=== PATIENT | male | born 1955 | race Caucasian/White ===

== ENCOUNTER → 2016-09-19 | Day surgery (SDC) | payer OTHER ==
[2016-09-12 09:04] VITALS: BMI 24.0
[~2016-09-19] VITALS: Ht 185.4 cm; Wt 83.2 kg
[~2016-09-19] MED LIST: ALBUAER19 INH; ANT25 PO; ASCA500 PO; ASPI81TA28 PO; ATROPINE SULFATE 0.1 MG/ML 5ML SYR IV PRN; EpHEDrine SULFATE INJ 50 MG/ML AMP IV PRN; FLUC100T4 PO; FLV1 PO; FNTTP50 TD; HYDR25TA4 PO; LIDOCAINE HCL 2% 2 ML VIAL (20MG/ML) ONE; METO1TAB69 PO; MULT-1042 PO; ONDANSETRON INJ 2 MG/ML 2 ML VIAL IV PRN; OXGN; OXYC-57 PO; PANT40TA PO; PARO1TAB27 PO; PHENYLEPHRINE 100MCG/ML 5ML SYR ONE; PROPOFOL IV EMULSION 10 MG/ML 20 ML VIAL IV ONE; SYMIN160 INH; THM100 PO; TOPI25TA99 PO; VNTHFA/IN INH; ZOLP10TA PO
[2016-09-19 10:57] VITALS: Ht 185.4 cm; Wt 83.2 kg
[2016-09-19 11:05] VITALS: TEMP 36.6
--- NOTE | 2016-09-19 11:06 | Endo History and Physical ---
History & Physical Date of Service: Sep 19, 2016. Chief Complaint: Abnormal EGD Referring Physician: Dr. Hodge History of Present Illness History of recurrent dysphagia and chest pain. Prior EGD with severe masslike ulceration of the esophagus. For a repeat EGD today. Past Medical History Cancer, Hypertension, COPD, Depression Past Surgical History Hx Cardiac Surgery: Yes (HEART CATH, NO STENT) Hx Internal Defibrillator: No Hx Pacemaker: No Hx Abdominal Surgery: Yes (BOWEL BLOCKAGE, BOWEL SURGERY A CHILD, APPY, HERNIA HYDROCELE) Hx of Implantable Prosthesis: No Hx Post-Op Nausea and Vomiting: No Hx Cancer Surgery: Yes (MULTIPLE SKIN CANCER REMOVALS AND MOHS PROCEDURE) Hx Thoracic Surgery: No Hx Orthopedic: Yes (TUMOR REMOVAL FROM BACK AND RT KNEE) Hx Urinary Tract Surgery: No Family History None Social History Smoking Status: Current Some Day Smoker Hx Substance Use: Yes (SEE MED LIST) Hx Alcohol Use: Yes (OCCASIONAL) Allergies Coded Allergies: Onion (Verified Allergy, Unknown, RASH AND GI UPSET, 09/19/16) Shellfish (Verified Adverse Reaction, Severe, ANAPHYLAXIS, 09/19/16) Captopril (Verified Adverse Reaction, Intermediate, "felt bad", 09/19/16) Codeine (Verified Adverse Reaction, Unknown, nausea; nightmares, 09/19/16) Current Medications Reported Home Medications Medications Dose Route/Sig Max Daily Dose Days Date Category Dose Instructions Vitamin C (Ascorbic Acid) 500 Mg Tab 1,000 Mg PO QAM 09/12/16 Reported Oxygen Gas 3 Liters NA HS 09/12/16 Reported Protonix (Pantoprazole Sodium) 40 Mg Tab 40 Mg PO QAM 09/12/16 Reported Diflucan (Fluconazole) 100 Mg Tab 100 Mg PO QAM 09/12/16 Reported Toprol-Xl (Metoprolol Succinate) 100 Mg Tabcr 100 Mg PO QAM 09/17/15 Reported Hctz (Hydrochlorothiazide) 25 Mg Tab 25 Mg PO QAM 09/17/15 Reported Ambien (Zolpidem Tartrate) 10 Mg Tab 10 Mg PO HS PRN 09/17/15 Reported Percocet 5MG/325MG (Oxycodone/Acetaminophen) Tab 1 Tablets PO Q6H PRN 09/17/15 Reported PAIN Duragesic (Fentanyl) 50 Mcg Tdsy 50 Mcg TD Q48H 09/17/15 Reported Aspirin Ec (Aspirin) 81 Mg Tab 81 Mg PO ON HOLD 03/29/15 Reported Symbicort 160/4.5 Inhaler (Budesonide/Formoterol Fumarate) Aero 2 Puffs INH BID 10/11/14 Reported Ventolin Inhaler (Albuterol) Aers 2 Puffs INH QID PRN 04/01/14 Reported Vital Signs Weight (Kilograms): 83.18 Height (Feet): 6 Height (Inches): 1 Physical Exam General Appearance: no apparent distress Respiratory/Chest: Auscultation: breath sounds normal Cardiovascular: Heart Auscultation: RRR Abdomen: Inspection & Palpation: soft Assessment and Plan EGD for follow-up evaluation of a suspicious esophageal ulceration. Risks include bleeding, infection, perforation, pain and aspiration.
--- NOTE | 2016-09-19 11:39 | GI REPORT ---
Procedure Date: 09/19/2016 11:06 AM Procedure: Upper GI endoscopy Indications: Dysphagia, Heartburn, Suspected tumor of the GI tract Medicines: Monitored Anesthesia Care Complications: No immediate complications. Estimated blood loss: Minimal. Estimated Blood Loss: Estimated blood loss was minimal. Procedure: Pre-Anesthesia Assessment: - Prior to the procedure, a History and Physical was performed, and patient medications, allergies and sensitivities were reviewed. The patient's tolerance of previous anesthesia was reviewed. - The risks and benefits of the procedure and the sedation options and risks were discussed with the patient. All questions were answered and informed consent was obtained. - Patient identification and proposed procedure were verified prior to the procedure by the physician, the nurse and the chocolate maker. The procedure was verified in the procedure room. - Pre-procedure physical examination revealed no contraindications to sedation. - ASA Grade Assessment: III - A patient with severe systemic disease. - After reviewing the risks and benefits, the patient was deemed in satisfactory condition to undergo the procedure. - The anesthesia plan was to use monitored anesthesia care (MAC). - Immediately prior to administration of medications, the patient was re-assessed for adequacy to receive sedatives. - The heart rate, respiratory rate, oxygen saturations, blood pressure, adequacy of pulmonary ventilation, and response to care were monitored throughout the procedure. - The physical status of the patient was re-assessed after the procedure. After obtaining informed consent, the endoscope was passed under direct vision. Throughout the procedure, the patient's blood pressure, pulse, and oxygen saturations were monitored continuously. The scope was introduced through the mouth, and advanced to the second part of duodenum. The upper GI endoscopy was accomplished without difficulty. The patient tolerated the procedure well. Findings: The esophagus and gastroesophageal junction were examined with white light. There were esophageal mucosal changes suggestive of long-segment Joyce's esophagus. These changes involved the mucosa at the upper extent of the gastric folds (38 cm from the incisors) extending to the Z-line (34 cm from the incisors). Circumferential salmon-colored mucosa was present from 35 to 38 cm, multiple tongues of salmon-colored mucosa were present from 34 to 35 cm, nodularity was present and ulcerations were present. The maximum longitudinal extent of these esophageal mucosal changes was 4 cm in length. Biopsies were taken with a cold forceps for histology. Estimated blood loss was minimal. A medium-sized hiatus hernia was found. The proximal extent of the gastric folds (end of tubular esophagus) was 38 cm from the incisors. The hiatal narrowing was 40 cm from the incisors. The Z-line was 34 cm from the incisors. Diffuse moderate inflammation characterized by congestion (edema), erosions, erythema and granularity was found in the entire examined stomach. Biopsies were taken with a cold forceps for histology. Estimated blood loss was minimal. The examined duodenum was normal. 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 Biopsied. - Medium-sized hiatus hernia. - Gastritis. Biopsied. - Normal examined duodenum. Recommendation: - Discharge patient to home (ambulatory). - Advance diet as tolerated today. - Increase Protonix (pantoprazole) 40 mg PO BID for 8 weeks. - Await pathology results. If dysplasia noted we may need to consider EMR for further evalution. - Repeat the upper endoscopy in 3 months for surveillance based on pathology results. Ismael France D.O. Ismael France DO 09/19/2016 11:38:17 AM This report has been signed electronically. Note Initiated On: 09/19/2016 11:06 AM
--- NOTE | 2016-09-19 11:42 | Discharge Instructions ---
Endoscopy Patient Instructions Date / Procedure(s) Performed Sep 19, 2016. EGD Allergy Information Coded Allergies: Onion (Verified Allergy, Unknown, RASH AND GI UPSET, 09/19/16) Shellfish (Verified Adverse Reaction, Severe, ANAPHYLAXIS, 09/19/16) Captopril (Verified Adverse Reaction, Intermediate, "felt bad", 09/19/16) Codeine (Verified Adverse Reaction, Unknown, nausea; nightmares, 09/19/16) Discharge Date / Findings Sep 19, 2016. Barretts Esophagus with nodularity Hiatal hernia Medication Instructions Stopped Medication(s): ALL MEDS STOP ONLY TAKE LOPRESSOR Reported Home Medications Medications Dose Route/Sig Max Daily Dose Days Date Category Dose Instructions Vitamin C (Ascorbic Acid) 500 Mg Tab 1,000 Mg PO QAM 09/12/16 Reported Oxygen Gas 3 Liters NA HS 09/12/16 Reported Protonix (Pantoprazole Sodium) 40 Mg Tab 40 Mg PO QAM 09/12/16 Reported Diflucan (Fluconazole) 100 Mg Tab 100 Mg PO QAM 09/12/16 Reported Toprol-Xl (Metoprolol Succinate) 100 Mg Tabcr 100 Mg PO QAM 09/17/15 Reported Hctz (Hydrochlorothiazide) 25 Mg Tab 25 Mg PO QAM 09/17/15 Reported Ambien (Zolpidem Tartrate) 10 Mg Tab 10 Mg PO HS PRN 09/17/15 Reported Percocet 5MG/325MG (Oxycodone/Acetaminophen) Tab 1 Tablets PO Q6H PRN 09/17/15 Reported PAIN Duragesic (Fentanyl) 50 Mcg Tdsy 50 Mcg TD Q48H 09/17/15 Reported Aspirin Ec (Aspirin) 81 Mg Tab 81 Mg PO ON HOLD 03/29/15 Reported Symbicort 160/4.5 Inhaler (Budesonide/Formoterol Fumarate) Aero 2 Puffs INH BID 10/11/14 Reported Ventolin Inhaler (Albuterol) Aers 2 Puffs INH QID PRN 04/01/14 Reported Provider Instructions Activity Restrictions - No exercising or heavy lifting for 24 hours. - Do not drink alcohol the day of the procedure. - Do not drive a car or operate machinery until the day after the procedure. - Do not make any important decisions or sign important papers in 24 hours after the procedure. Following Day: - Return to full activity which may include returning to work/school. Diet Start your diet with liquids and light foods (jello, soup, juice, toast). Then eat your usual diet if not nauseated. Treatment For Common After Affects For mild abdominal pain, bloating, or excessive gas: - Rest - Eat lightly - Lie on right side Follow-Up Information Increase Protonix to 40 mg twice daily for 8 weeks Await pathology results Anesthesia Information What You Should Know You have had a procedure that required some medicine to reduce anxiety and discomfort. This treatment is called moderate sedation. After receiving the treatment, you may be sleepy, but you will be able to breathe on your own. The effects of the treatment may last for several hours. Follow these instructions along with Activity/Diet recommendations noted above: * Do NOT do anything where dizziness or clumsiness would be dangerous. * Rest quietly at home today, then you can be up and about tomorrow. * Have a responsible person stay with you the rest of today. * You may have had an I.V. today. If so, you may take the dressing off later today. Recommendations Call your doctor if: * Trouble breathing * Continuous vomiting for more than 24 hours * Temperature above 101 degrees * Severe abdominal pain or bloating * Pain not relieved by pain medicine ordered * There is increased drainage or redness from any incision * A large amount of rectal bleeding greater than 2-3 tablespoons. (If you had a polyp/s removed or have hemorrhoids, a small amount of blood - from the rectum is to be expected.) * You have any unanswered questions or concerns. IN THE EVENT OF A SERIOUS EMERGENCY, GO TO THE NEAREST EMERGENCY ROOM Your discharge instructions were prepared by provider Ismael France. Patient Instructions Signature Page Iron Cruz Patient (or Guardian) Signature/Date: I have read and understand the instructions given to me by my caregivers. Caregiver/RN/Doctor Signature/Date: The above-named patient and/or guardian has received patient instructions on this date. + Original Patient Signature Page (only) stays with chart. Please make copy for patient.
--- NOTE | 2016-09-19 12:04 | Anesthesiology Progress Note ---
Anesthesia Post Op Note Date & Time Sep 19, 2016 at 12:03 Vital Signs Pain Intensity: 0 Vital Signs Past 12 Hours Date Time Temp Pulse Resp B/P Pulse Ox O2 Delivery O2 Flow Rate FiO2 09/19/16 12:02 79 20 161/89 97 Room Air 09/19/16 11:46 80 20 131/72 97 Room Air 09/19/16 11:05 36.6 74 16 156/94 95 Room Air Notes Mental Status: alert / awake / arousable, participated in evaluation Pt Amnestic to Procedure: Yes Nausea / Vomiting: adequately controlled Pain: adequately controlled Airway Patency, RR, SpO2: stable & adequate BP & HR: stable & adequate Hydration State: stable & adequate Anesthetic Complications: no major complications apparent
[2016-09-19 12:19] VITALS: BP 153/89; PULSE 78; O2SAT 98
== END | disposition home or self-care (01) ==
LOC: C.GI 10:22
PROVIDERS: ATTEND Internal Medicine Gastroenterology
DX: K20.9 Esophagitis, unspecified (principal); K22.10 Ulcer of esophagus without bleeding; R13.10 Dysphagia, unspecified; R07.89 Other chest pain; F17.210 Nicotine dependence, cigarettes, uncomplicated; I10 Essential (primary) hypertension; J44.9 Chronic obstructive pulmonary disease, unspecified; K44.9 Diaphragmatic hernia without obstruction or gangrene

== ENCOUNTER → 2016-11-22 | Day surgery (SDC) | payer OTHER ==
[2016-11-16 11:08] VITALS: Ht 185.4 cm; Wt 83.2 kg
[~2016-11-22] VITALS: Ht 185.4 cm; Wt 83.2 kg
[~2016-11-22] MED LIST changes: -ATROPINE SULFATE 0.1 MG/ML 5ML SYR IV PRN; -EpHEDrine SULFATE INJ 50 MG/ML AMP IV PRN; -FLUC100T4 PO; +MIDAZOLAM HCL 1 MG/ML 2ML VIAL ONE; -ONDANSETRON INJ 2 MG/ML 2 ML VIAL IV PRN; -PHENYLEPHRINE 100MCG/ML 5ML SYR ONE; +SODIUM CHLORIDE 0.9% 500ML 500 ML IV ONE
[2016-11-22 10:50] VITALS: TEMP 36.6
--- NOTE | 2016-11-22 11:34 | Endo History and Physical ---
History & Physical Date of Service: Nov 22, 2016. Chief Complaint: Joyce's Referring Physician: Dr. Zach Monroy History of Present Illness Joyce's follow up Past Medical History Cancer, Hypertension, COPD, Depression Past Surgical History Hx Cardiac Surgery: Yes (HEART CATH, NO STENT) Hx Internal Defibrillator: No Hx Pacemaker: No Hx Abdominal Surgery: Yes (BOWEL BLOCKAGE, BOWEL SURGERY A CHILD, APPY, HERNIA HYDROCELE) Hx of Implantable Prosthesis: No Hx Post-Op Nausea and Vomiting: No Hx Cancer Surgery: Yes (MULTIPLE SKIN CANCER REMOVALS AND MOHS PROCEDURE) Hx Thoracic Surgery: No Hx Orthopedic: Yes (TUMOR REMOVAL FROM BACK AND RT KNEE) Hx Urinary Tract Surgery: No Family History None Social History Smoking Status: Current Some Day Smoker Hx Substance Use: Yes (SEE MED LIST) Hx Alcohol Use: Yes (OCCASIONAL) Allergies Coded Allergies: Onion (Verified Allergy, Unknown, RASH AND GI UPSET, 11/16/16) Shellfish (Verified Adverse Reaction, Severe, ANAPHYLAXIS, 11/16/16) Captopril (Verified Adverse Reaction, Intermediate, "felt bad", 11/16/16) Codeine (Verified Adverse Reaction, Unknown, nausea; nightmares, 11/16/16) Current Medications Reported Home Medications Medications Dose Route/Sig Max Daily Dose Days Date Category Dose Instructions Topamax (Topiramate) 25 Mg Tab 25 Mg PO UD 11/16/16 Reported PT HAS NOT STARTED MEDICATION YET AND ISN'T SURE IF GOING TO TAKE OR NOT Vitamin C (Ascorbic Acid) 500 Mg Tab 1,000 Mg PO QAM 09/12/16 Reported Oxygen Gas 3 Liters NA HS 09/12/16 Reported Protonix (Pantoprazole Sodium) 40 Mg Tab 40 Mg PO QAM 09/12/16 Reported Toprol-Xl (Metoprolol Succinate) 100 Mg Tabcr 100 Mg PO QAM 09/17/15 Reported Ambien (Zolpidem Tartrate) 10 Mg Tab 10 Mg PO HS PRN 09/17/15 Reported Percocet 5MG/325MG (Oxycodone/Acetaminophen) Tab 1 Tablets PO Q6H PRN 09/17/15 Reported PAIN Duragesic (Fentanyl) 50 Mcg Tdsy 50 Mcg TD Q48H 09/17/15 Reported Aspirin Ec (Aspirin) 81 Mg Tab 81 Mg PO QAM 03/29/15 Reported Symbicort 160/4.5 Inhaler (Budesonide/Formoterol Fumarate) Aero 2 Puffs INH BID 10/11/14 Reported Ventolin Inhaler (Albuterol) Aers 2 Puffs INH QID PRN 04/01/14 Reported Vital Signs Weight (Kilograms): 83.18 Height (Feet): 6 Height (Inches): 1 Date Time Temp Pulse Resp B/P Pulse Ox O2 Delivery O2 Flow Rate FiO2 11/22/16 10:50 36.6 103 20 170/93 96 Room Air Physical Exam General Appearance: WD/WN, no apparent distress Assessment and Plan EGD today
--- NOTE | 2016-11-22 12:04 | GI REPORT ---
Procedure Date: 11/22/2016 11:08 AM Procedure: Upper GI endoscopy Indications: Surveillance for malignancy due to personal history of Joyce's esophagus, Follow-up of reflux esophagitis Medicines: Propofol per Anesthesia Complications: No immediate complications. Estimated blood loss: Minimal. Estimated Blood Loss: Estimated blood loss was minimal. Procedure: Pre-Anesthesia Assessment: - Prior to the procedure, a History and Physical was performed, and patient medications, allergies and sensitivities were reviewed. The patient's tolerance of previous anesthesia was reviewed. - The risks and benefits of the procedure and the sedation options and risks were discussed with the patient. All questions were answered and informed consent was obtained. - Patient identification and proposed procedure were verified prior to the procedure by the physician and the nurse. The procedure was verified in the pre-procedure area in the procedure room. - Mental Status Examination: alert and oriented. Airway Examination: normal oropharyngeal airway and neck mobility. Respiratory Examination: clear to auscultation. CV Examination: normal. Abdominal Examination: bowel sounds present, abdomen soft and non-tender, no masses or organomegaly noted. - ASA Grade Assessment: III - A patient with severe systemic disease. After obtaining informed consent, the endoscope was passed under direct vision. Throughout the procedure, the patient's blood pressure, pulse, and oxygen saturations were monitored continuously. The scope was introduced through the mouth, and advanced to the second part of duodenum. The upper GI endoscopy was accomplished without difficulty. The patient tolerated the procedure well. Findings: The esophagus and gastroesophageal junction were examined with white light. There were esophageal mucosal changes consistent with long-segment Joyce's esophagus. These changes involved the mucosa extending to the Z-line (32 cm from the incisors). Circumferential salmon-colored mucosa was present and one tongue of salmon-colored mucosa was present at 32 cm. The maximum longitudinal extent of these esophageal mucosal changes was 6 cm in length. Mucosa was biopsied with a cold forceps for histology in 4 quadrants at 32, 34 and 36 cm from the incisors. A total of 3 specimen bottles were sent to pathology. Verification of patient identification for the specimen was done by the physician and nurse using the patient's name and date. Estimated blood loss was minimal. Inflammation characterized by erythema was found in the entire examined stomach. The examined duodenum was normal. 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 Biopsied. - Gastritis. - Normal examined duodenum. Recommendation: - Await pathology results. - Follow an antireflux regimen. - Continue present medications. - Repeat the upper endoscopy for surveillance based on pathology results. - Discharge patient to home. Belem Hodge D.O. Belem Hodge, 11/22/2016 12:04:05 PM This report has been signed electronically. Note Initiated On: 11/22/2016 11:08 AM I attest to the content of the Intraoperative Record and orders documented therein, exceptions below
--- NOTE | 2016-11-22 12:12 | Discharge Instructions ---
Endoscopy Patient Instructions Date / Procedure(s) Performed Nov 22, 2016. EGD Allergy Information Coded Allergies: Onion (Verified Allergy, Unknown, RASH AND GI UPSET, 11/16/16) Shellfish (Verified Adverse Reaction, Severe, ANAPHYLAXIS, 11/16/16) Captopril (Verified Adverse Reaction, Intermediate, "felt bad", 11/16/16) Codeine (Verified Adverse Reaction, Unknown, nausea; nightmares, 11/16/16) Discharge Date / Findings Nov 22, 2016. Joyce's esophagus Medication Instructions Stopped Medication(s): took ASA yesterday Restart Stopped Medication(s): Ok to resume medications OK to resume medications Provider Instructions Activity Restrictions - No exercising or heavy lifting for 24 hours. - Do not drink alcohol the day of the procedure. - Do not drive a car or operate machinery until the day after the procedure. - Do not make any important decisions or sign important papers in 24 hours after the procedure. Following Day: - Return to full activity which may include returning to work/school. Diet Start your diet with liquids and light foods (jello, soup, juice, toast). Then eat your usual diet if not nauseated. Treatment For Common After Affects For mild abdominal pain, bloating, or excessive gas: - Rest - Eat lightly - Lie on right side Follow-Up Information Follow-up with Dr. Zach Monroy as scheduled Anesthesia Information What You Should Know You have had a procedure that required some medicine to reduce anxiety and discomfort. This treatment is called moderate sedation. After receiving the treatment, you may be sleepy, but you will be able to breathe on your own. The effects of the treatment may last for several hours. Follow these instructions along with Activity/Diet recommendations noted above: * Do NOT do anything where dizziness or clumsiness would be dangerous. * Rest quietly at home today, then you can be up and about tomorrow. * Have a responsible person stay with you the rest of today. * You may have had an I.V. today. If so, you may take the dressing off later today. Recommendations Call your doctor if: * Trouble breathing * Continuous vomiting for more than 24 hours * Temperature above 101 degrees * Severe abdominal pain or bloating * Pain not relieved by pain medicine ordered * There is increased drainage or redness from any incision * A large amount of rectal bleeding greater than 2-3 tablespoons. (If you had a polyp/s removed or have hemorrhoids, a small amount of blood - from the rectum is to be expected.) * You have any unanswered questions or concerns. IN THE EVENT OF A SERIOUS EMERGENCY, GO TO THE NEAREST EMERGENCY ROOM Your discharge instructions were prepared by provider Belem Hodge. Patient Instructions Signature Page Iron Cruz Patient (or Guardian) Signature/Date: I have read and understand the instructions given to me by my caregivers. Caregiver/RN/Doctor Signature/Date: The above-named patient and/or guardian has received patient instructions on this date. + Original Patient Signature Page (only) stays with chart. Please make copy for patient.
--- NOTE | 2016-11-22 12:14 | Anesthesiology Progress Note ---
Anesthesia Post Op Note Date & Time Nov 22, 2016 at 12:13 Vital Signs Pain Intensity: 0 Vital Signs Past 12 Hours Date Time Temp Pulse Resp B/P Pulse Ox O2 Delivery O2 Flow Rate FiO2 11/22/16 12:02 90 20 109/77 95 Room Air 11/22/16 10:50 36.6 103 20 170/93 96 Room Air Notes Mental Status: alert / awake / arousable, participated in evaluation Pt Amnestic to Procedure: Yes Nausea / Vomiting: adequately controlled Pain: adequately controlled Airway Patency, RR, SpO2: stable & adequate BP & HR: stable & adequate Hydration State: stable & adequate Anesthetic Complications: no major complications apparent
[2016-11-22 12:32] VITALS: BP 142/92; PULSE 78; O2SAT 97
== END | disposition home or self-care (01) ==
LOC: C.GI 10:27
PROVIDERS: ATTEND Internal Medicine
DX: K22.70 Barrett's esophagus without dysplasia (principal); K20.9 Esophagitis, unspecified; K29.70 Gastritis, unspecified, without bleeding; J44.9 Chronic obstructive pulmonary disease, unspecified; I10 Essential (primary) hypertension; F17.210 Nicotine dependence, cigarettes, uncomplicated; Z85.828 Personal history of other malignant neoplasm of skin

== ENCOUNTER 2017-01-31 08:09 | Inpatient (IN) | payer OTHER ==
[~2017-01-31] VITALS: Ht 185.4 cm; Wt 89.9 kg
[~2017-01-31 08:09] MED LIST changes: -ANT25 PO; -FLV1 PO; -LIDOCAINE HCL 2% 2 ML VIAL (20MG/ML) ONE; +METO100T44 PO; -METO1TAB69 PO; -MIDAZOLAM HCL 1 MG/ML 2ML VIAL ONE; -MULT-1042 PO; -PARO1TAB27 PO; -PROPOFOL IV EMULSION 10 MG/ML 20 ML VIAL IV ONE; -SODIUM CHLORIDE 0.9% 500ML 500 ML IV ONE; -THM100 PO; -VNTHFA/IN INH
[2017-01-31] MEDS ORDERED: ONDANSETRON 4MG OD TAB PO PRN (08:30)
[2017-01-31] MEDS ORDERED: KETOROLAC TROMETHAMINE 60 MG/2 ML VIAL IM STA (08:30)
[2017-01-31] MEDS ORDERED: VNTHFA/IN INH (08:37)
[2017-01-31] MEDS ORDERED: SODIUM CHLORIDE 0.9% 1000ML 1,000 ML IV STA (08:40)
[2017-01-31 08:58] LABS: BASO % 0.3 %; BASO ABS # 0.02 K/uL (0-0.2); COMPLETE YES; EOS % 1.3 %; HEMATOCRIT 48.4 % (42-52); IG% 0.5 %; LYMPH % 23.9 %; MEAN CELL VOLUME 90.6 fL (80-100); MEAN CORPUSCULAR HEMOGLOBIN 31.8 pg (25-34); MEAN CORPUSCULAR HGB CONC 35.1 g/dl (32-36); MONO % 11.5 %; NEUT % 62.5 %; PLATELET COUNT 164 K/uL (130-400); RED BLOOD COUNT 5.34 M/uL (4.7-6.1); WHITE BLOOD COUNT 7.94 K/uL (4.8-10.8)
[2017-01-31] MEDS ORDERED: ONDANSETRON INJ 2 MG/ML 2 ML VIAL IV STA (09:01)
[2017-01-31] MEDS ORDERED: MoRPHine SULFATE 4 MG/ML 1 ML CARP\\VIAL IV STA (09:01)
[2017-01-31 09:04] LABS: INR 0.9 (0.9-1.1); PROTHROMBIN TIME (PATIENT) 9.4 SECONDS (9.0-12.0)
[2017-01-31 09:05] LABS: BUN/CREATININE RATIO 10.6 (10-20); CREATININE 1.1 mg/dl (0.60-1.40); MAGNESIUM 2.5 mg/dl (1.8-2.4); POTASSIUM 2.8 mmol/L (3.5-5.1)
[2017-01-31 09:15] LABS: CALCIUM 8.4 mg/dl (8.5-10.1)
[2017-01-31 09:16] LABS: THYROID STIMULATING HORMONE 0.341 uIu/ml (0.300-4.500)
[2017-01-31] MEDS ORDERED: POTASSIUM CHLORIDE 10 MEQ TABCR PO STA (09:26)
[2017-01-31] MEDS ORDERED: POTASSIUM CHLR 10 MEQ / WTR 40 MEQ in PREMIXED WATER 100 ML IV SCH (09:30)
--- NOTE | 2017-01-31 09:47 | DIAGNOSTIC IMAGING REPORT ---
CT HEAD WITHOUT CONTRAST (CT) CLINICAL HISTORY: Syncope. Altered mental status. Patient woke up on floor. COMPARISON STUDY: 03/29/2015 TECHNIQUE: Axial CT of the brain is performed from the vertex to the skull base. IV contrast was not administered for this examination. CT DOSE: FINDINGS: No intra or extra-axial mass lesions are visualized. There is no CT evidence of acute cortical infarction. There is no evidence of midline shift. There is no acute hemorrhage. No calvarial fractures are visualized. There are minimal white matter hypodensities likely on a small vessel basis. There is no evidence of pathologic ventricular dilatation. There is no evidence of acute sinusitis IMPRESSION: No acute intracranial findings Electronically signed by: Martinez Garcia M.D. 01/31/2017 9:46 AM Dictated Date/Time: 01/31/2017 9:45 AM
--- NOTE | 2017-01-31 10:02 | DIAGNOSTIC IMAGING REPORT ---
CHEST 2 VIEWS ROUTINE CLINICAL HISTORY: Weakness. Altered mental status. COMPARISON STUDY: 09/26/2015 FINDINGS: The heart is normal in size. There is suspected underlying emphysema. There is mild chronic basilar interstitial thickening. There is no lobar consolidation. There is no failure. There are no pleural effusions.[ IMPRESSION: Emphysema. No acute findings. Electronically signed by: Martinez Garcia M.D. 01/31/2017 10:00 AM Dictated Date/Time: 01/31/2017 10:00 AM
[2017-01-31] MEDS: POTASSIUM CHLORIDE 10 MEQ / 100ML WTR IV SCH ×4 (10:05→12:09)
[2017-01-31] MEDS ORDERED: OXYCODONE/ACETAMINOPHEN 5-325 TAB PO STA (10:28)
[2017-01-31 10:55] LABS: URINE APPEARANCE CLEAR (CLEAR); URINE BILIRUBIN NEG (NEG); URINE COLOR YELLOW; URINE NITRITE NEG (NEG); URINE SPECIFIC GRAVITY 1.009 (1.000-1.030); UROBILINOGEN NEG (NEG)
[2017-01-31 10:58] LABS: MANUAL MICROSCOPIC REQUIRED? NO; REVIEW REQ? NO
[2017-01-31 11:22] LABS: BENZODIAZEPINE, URINE NEG (NEG); COCAINE,URINE NEG (NEG); PHENCYCLIDINE, URINE NEG (NEG)
[2017-01-31] MEDS ORDERED: MULTI-VITAMIN INFUSION INJ 10 ML, THIAMINE HCL INJ 100 MG, FoLIC ACID INJ 1 MG in SODIU... IV ONE (11:45)
[2017-01-31] MEDS ORDERED: OXYCODONE/ACETAMINOPHEN 5-325 TAB PO ONE (12:00)
[2017-01-31] MEDS ORDERED: METOPROLOL SUCC 50MG EXT REL TAB PO STA (13:24)
[2017-01-31] MEDS ORDERED: HYDROCHLOROTHIAZIDE 25 MG TAB PO STA (13:24)
[2017-01-31] MEDS ORDERED: DIAZEPAM 5MG TAB PO STA (13:47)
--- NOTE | 2017-01-31 14:08 | History and Physical ---
History & Physical Date & Time of Service: Jan 31, 2017 at 14:07 Chief Complaint: Syncope Primary Care Physician: Zach Monroy M.D. History of Present Illness Source: patient, hospital records 60-year-old male with past medical history of COPD, hypertension, mood disorder , chronic pain on narcotics, barrets esophagus/Gastritis/hiatal hernia presents to ED with c/o syncope. Before even interviewing, patient keeps complaining of pain and asking for pain medications- especially his percocet, which he has already received along with IV Morphine 4 mg. Patient states that he has been feeling dizzy for the past 10-12 days for which he has seen his PCP. Yesterday night, he had a bottle of wine which he does once in a while. He stood up to go to the bathroom and than collapsed and woke up on the floor today AM. He doesnt recall any symptoms prior to falling- no chest pain, palpitations. He denies any illness or infection in past few days. His alcohol level in ER is 163 , but he gets very upset when we mention about alcohol saying that it is normal to have a glass of wine once in a wine. Denies binge drinking or abuse. Denies any drug abuse. Main c/o pain in left side of his chest (lower) and thinks he must have fractured his ribs, though CXR- no fractures. Says pain is all over and 10/10 in intensity. Denies any abdominal pain specifically, no nausea, vomiting, fever, chills. In ED, patient is tremulous. HR is in 120s, BP 140/110s, Afebrile, 94% on RA. Received 2 tabs of percocet, IV morphine 4 mg in ED. Urine toxi- +ve for opiiates, Alcohol level 163 Received IV fluids, all his morning pills which he missed. Will admit him for syncope, likely related to alcohol intoxication, need to closely monitor him for withdrawal. Past Medical/Surgical History Medical Problems: (1) Basal cell carcinoma Status: Chronic (2) Chronic neck pain Status: Chronic (3) COPD (chronic obstructive pulmonary disease) Status: Chronic (4) Depression Status: Chronic (5) History of Meckel's diverticulum Status: Chronic (6) HTN (hypertension) Status: Chronic (7) Suicide attempt Status: Chronic Surgical Problems: (1) H/O hernia repair Status: Chronic (2) History of appendectomy Status: Chronic (3) History of colon resection Permanent Comment: for Meckel's Diverticulum repair Status: Chronic (4) Hx of cardiac cath Permanent Comment: 03/2014 - normal Status: Chronic (5) 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 Family History FH: CAD (coronary artery disease) FATHER TIAs FATHER Social History Smoking Status: Current Every Day Smoker Drug Use: none Marital Status: single Occupational Status: disabled Immunizations History of Influenza Vaccine: Yes Influenza Vaccine Date: Jun 30, 2015 History of Tetanus Vaccine?: Yes Tetanus Immunization Date: Mar 26, 2014 History of Pneumococcal: Yes Pneumococcal Date: Apr 07, 2014 Allergies Coded Allergies: Onion (Verified Allergy, Unknown, RASH AND GI UPSET, 11/16/16) Shellfish (Verified Adverse Reaction, Severe, ANAPHYLAXIS, 11/16/16) Captopril (Verified Adverse Reaction, Intermediate, "felt bad", 11/16/16) Codeine (Verified Adverse Reaction, Unknown, nausea; nightmares, 11/16/16) Home Medications Scheduled Ascorbic Acid (Vitamin C), 1,000 MG PO QAM Budesonide/Formoterol Fumarate (Symbicort 160/4.5 Inhaler ), 2 PUFFS INH BID Hydrochlorothiazide (Hctz), 25 MG PO QAM Metoprolol Succ (Toprol Xl) (Toprol-Xl ), 100 MG PO QAM Oxygen (Oxygen), 3 LITERS NA HS Pantoprazole (Protonix), 40 MG PO QAM Scheduled PRN Albuterol Hfa (Ventolin Hfa), 2 PUFFS INH QID PRN for Shortness of Breath Zolpidem Tartrate (Ambien), 10 MG PO HS PRN for Sleep Review of Systems Constitutional: + fatigue, No fever, No chills, No weight loss Eyes: No redness, No discharge ENT: No hearing loss, No nasal symptoms Respiratory: No cough, No sputum, No wheezing, No shortness of breath Cardiovascular: + chest pain (left lower chest), No edema, No palpitations Abdomen: No pain, No nausea, No vomiting, No diarrhea Genitourinary - Male: No hematuria, No dysuria, No urinary frequency Neurologic: No memory loss, No paralysis, No weakness, No numbness/tingling Endocrine: + fatigue Hematologic / Lymphatic: No abnormal bleeding/bruising Integumentary: No rash Physical Exam Vital Signs Date Time Temp Pulse Resp B/P (MAP) Pulse Ox O2 Delivery O2 Flow Rate FiO2 01/31/17 13:35 116 01/31/17 13:25 110 22 141/104 96 Room Air 01/31/17 13:22 140/104 01/31/17 12:09 115 18 159/128 95 Room Air 01/31/17 10:06 112 18 133/96 94 Room Air 01/31/17 09:03 138/100 132/83 121/83 01/31/17 08:50 95 Room Air 01/31/17 08:35 36.6 115 18 156/114 95 Room Air General Appearance: + pertinent finding (Tremulous + Irritable + but awake, alert, oriented x 3) Head: normocephalic, atraumatic Eyes: PERRL ENT: hearing grossly normal Neck: supple, no JVD Respiratory/Chest: chest non-tender, lungs clear, normal breath sounds, no respiratory distress, no accessory muscle use Cardiovascular: no edema, normal peripheral pulses, + tachycardia Abdomen/GI: non tender, soft, no organomegaly, + pertinent finding (scar +) Extremities/Musculoskelatal: no calf tenderness, no pedal edema Neurologic/Psych: no motor/sensory deficits, alert, oriented x 3 Skin: normal color Diagnostics Laboratory Results Results Past 24 Hours Test 01/31/17 08:29 01/31/17 08:30 01/31/17 08:55 01/31/17 09:25 Range/Units Bedside Glucose 97 70-99 mg/dl White Blood Count 7.94 4.8-10.8 K/uL Red Blood Count 5.34 4.7-6.1 M/uL Hemoglobin 17.0 14.0-18.0 g/dL Hematocrit 48.4 42-52 % Mean Corpuscular Volume 90.6 80-100 fL Mean Corpuscular Hemoglobin 31.8 25-34 pg Mean Corpuscular Hemoglobin Concent 35.1 32-36 g/dl Platelet Count 164 130-400 K/uL Mean Platelet Volume 10.0 7.4-10.4 fL Neutrophils (%) (Auto) 62.5 % Lymphocytes (%) (Auto) 23.9 % Monocytes (%) (Auto) 11.5 % Eosinophils (%) (Auto) 1.3 % Basophils (%) (Auto) 0.3 % Neutrophils # (Auto) 4.97 1.4-6.5 K/uL Lymphocytes # (Auto) 1.90 1.2-3.4 K/uL Monocytes # (Auto) 0.91 0.11-0.59 K/uL Eosinophils # (Auto) 0.10 0-0.5 K/uL Basophils # (Auto) 0.02 0-0.2 K/uL RDW Standard Deviation 50.1 36.4-46.3 fL RDW Coefficient of Variation 14.9 11.5-14.5 % Immature Granulocyte % (Auto) 0.5 % Immature Granulocyte # (Auto) 0.04 0.00-0.02 K/uL Prothrombin Time 9.4 9.0-12.0 SECONDS Prothromb Time International Ratio 0.9 0.9-1.1 Activated Partial Thromboplast Time 26.4 21.0-31.0 SECONDS Partial Thromboplastin Ratio 1.0 Sodium Level 130 136-145 mmol/L Potassium Level 2.8 3.5-5.1 mmol/L Chloride Level 88 98-107 mmol/L Carbon Dioxide Level 29 21-32 mmol/L Anion Gap 13.0 3-11 mmol/L Blood Urea Nitrogen 12 7-18 mg/dl Creatinine 1.10 0.60-1.40 mg/dl Est Creatinine Clear Calc Drug Dose 77.7 ml/min Estimated GFR () 82.4 Estimated GFR (Non- 71.1 BUN/Creatinine Ratio 10.6 10-20 Random Glucose 92 70-99 mg/dl Calcium Level 8.4 8.5-10.1 mg/dl Magnesium Level 2.5 1.8-2.4 mg/dl Total Bilirubin 0.5 0.2-1 mg/dl Direct Bilirubin 0.1 0-0.2 mg/dl Aspartate Amino Transf (AST/SGOT) 56 15-37 U/L Alanine Aminotransferase (ALT/SGPT) 75 12-78 U/L Alkaline Phosphatase 98 45-117 U/L Total Creatine Kinase 366 39-308 U/L Total Protein 8.7 6.4-8.2 gm/dl Albumin 4.3 3.4-5.0 gm/dl Lipase 927 73-393 U/L Thyroid Stimulating Hormone (TSH) 0.341 0.300-4.500 uIu/ml Bedside Troponin I 0.000 0-0.045 ng/ml Ethyl Alcohol mg/dL 163.0 0-3 mg/dl Test 01/31/17 10:40 01/31/17 13:25 Range/Units Urine Color YELLOW Urine Appearance CLEAR CLEAR Urine pH 6.0 4.5-7.5 Urine Specific [place] 1.009 1.000-1.030 Urine Protein NEG NEG Urine Glucose (UA) NEG NEG Urine Ketones NEG NEG Urine Occult Blood NEG NEG Urine Nitrite NEG NEG Urine Bilirubin NEG NEG Urine Urobilinogen NEG NEG Urine Leukocyte Esterase NEG NEG Urine Opiates Screen POS NEG Urine Methadone, Qualitative NEG NEG Urine Barbiturates NEG NEG Urine Phencyclidine (PCP) Level NEG NEG Ur Amphetamine/Methamphetamine NEG NEG MDMA (Ecstasy) Screen NEG NEG Urine Benzodiazepines Screen NEG NEG Urine Cocaine Metabolite NEG NEG Urine Marijuana (THC) NEG NEG Diagnostic Radiology CT head No acute abnormalities CXR No acute abnormalities, Emphysema EKG- SInus tachycardia with no ischemic changes Impression Assessment and Plan COPD, hypertension, mood disorder, chronic pain on narcotics, barrets esophagus /Gastritis/hiatal hernia SYNCOPE/DIZZINESS Likely secondary to Alcohol intoxication . Patient on exam is very tremulous with HR in 120s, BP 140/110s- will have to closely watch him for DTS -Work up- CT head- negative, Tele monitoring to w/f arrhythmias, orthostatics ordered -S/P IVF in ED, continue with it ALCOHOL INTOXICATION Says he doesnt abuse alcohol, but drinks a bottle of wine once in a while like he did yesterday night, Alcohol level 163 in ED. Patient on exam is very tremulous with HR in 120s, BP 140/110s- will have to closely watch him for DTS -Alcohol withdrawal protocol ordered -Continue with IV Banana bag/Thiamine/Folic acid -Urine toxicology- positive for opiates - takes percocet at home. -Would avoid IV narcotics as patient is constantly demanding - would be cautious with alcohol intoxication and risk of withdrawal. Continue with percocet as at home to avoid withdrawal SEVERE HYPOKALEMIA Secondary to alcoholism -Received 80 mg K in ED -Repeat at 4:00 PM. -Mg 2.5 ELEVATED CPK -In 300s likely secondary to fall -IVF -Monitor SINUS TACHYCARDIA Multifactorial: Likely not taking him AM medications- Metoprolol 100 mg (given in ED), Alcohol intoxication going into withdrawal -S/P IVF in ED -Continue with IVF -Continue with metoprolol 100 mg - home med -Monitor ELEVATED LIPASE Lipase 927- Says has pain all over, but doesnt c/o abdominal pain specifically, no nausea, vomiting But unable to evaluate true pain level so will do CT scan to rule out pancreatitis, as high risk of getting it -IV fluids as above COPD TOBACCO ABUSE DISORDER NOCTURNAL HYPOXIA -No signs of exacerbation -On 3 L oxygen at night -CXR- emphysema -Nicotine patch HX OF BARRETTS ESOPHAGEUS/GASTRITIS/HIATAL HERNIA Per recent endoscopy 11/2016 -No melena -Continue with protonix HTN- Elevated Likely secondary to above -Continue with home medications CHRONIC PAIN ON NARCOTICS Says has degenerative back issues for which he takes these pain medications per pain management -WIll check the [place] drug monitoring records -Continue with percocet 10/325 mg QID prn - home med. Would avoid any IV Narcotics in setting of alcohol intoxication/withdrawal and risk of abuse potential Level of Care Telemetry Resuscitation Status FULL RESUSCITATION VTE Prophylaxis Risk Level: Low Given or contraindicated: Ihsan Marquez, SCD's
[2017-01-31] MEDS ORDERED: GABAPENTIN 600 MG TAB PO SCH (14:15)
[2017-01-31] MEDS ORDERED: MAGNESIUM HYDROXIDE SUSP 30 ML UDC PO PRN (14:15)
[2017-01-31] MEDS ORDERED: LORAZEPAM 1 MG TAB PO PRN (14:15)
[2017-01-31] MEDS ORDERED: ZOLPIDEM TARTRATE 10 MG TAB PO PRN (14:15)
[2017-01-31] MEDS ORDERED: GABAPENTIN 800 MG TAB PO SCH (14:15)
[2017-01-31] MEDS ORDERED: ALBUT/IPRATROP 3MG/0.5MG NEB 3 ML VIAL INH PRN (14:15)
[2017-01-31] MEDS ORDERED: ONDANSETRON INJ 2 MG/ML 2 ML VIAL IV PRN (14:15)
[2017-01-31] MEDS ORDERED: ACETAMINOPHEN 325 MG TAB PO PRN (14:15)
--- NOTE | 2017-01-31 14:25 | EMERGENCY ROOM VISIT NOTE ---
History First contact with patient: 08:21 Chief Complaint: SYNCOPE Stated Complaint: SYNCOPE Nursing Triage Summary: PT VERBALIZES FOR THE LAST MONTH HE HAS BEEN DIZZY, HAS BEEN SEEING HIS PCP AND PAIN MGMT MD FOR THIS. PT HAS HX CHRONIC LUMBAR AND CERVICAL BACK PAIN. VERBALIZES HE WOKE UP IN THE MIDDLE OF THE NIGHT TO VOID AND MUST HAVE PASSED OUT, THOUGH HE DOESN'T REMEMBER, WOKE UP ON THE FLOOR THIS AM. C/O LEFT UPPER RIB PAIN AND LEFT HIP/THIGH PAIN. ABRASION NOTED TO LEFT ELBOW. 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 History of Present Illness The patient is a 61 year old male who presents to the Emergency Room with complaints of syncope. Patient states he got up in the middle of the night to go to the bathroom, became dizzy and thinks he passed out, states he woke up a few hours later laying on the bathroom floor. He complains of a headache and left-sided rib pain, as well as an abrasion on his left arm. Patient states he has been feeling dizzy off and on for the past week. He denies any chest pain, shortness of breath, palpitations, nausea or vomiting, abdominal pain, diarrhea , urinary complaints. Patient is followed by chronic pain management for chronic neck and back pain, states he recently had medications changed and was taken off of fentanyl and morphine and had his oxycodone increased. Review of Systems GENERAL: Denies fevers, chills, malaise, fatigue, unintentional weight changes. HEENT: + Dizziness. Denies visual problems, hearing loss, tinnitus. Denies difficulty swallowing or oral lesions. PULMONARY: Denies cough, shortness of breath, sputum production or hemoptysis. CARDIOVASCULAR: + Syncope. Denies chest pain, palpitations, dyspnea on exertion , orthopnea or peripheral edema. GASTROINTESTINAL: Denies diarrhea, constipation, nausea, vomiting, or abdominal pain. GENITOURINARY: Denies dysuria, frequency, urgency or nocturia. Denies hematuria. NEUROLOGIC: Denies history of epilepsy, CVA, TIA or chronic headaches. MUSCULOSKELETAL: Denies history of joint tenderness/swelling. SKIN: Denies rashes or lesions. Abrasion to left arm. PSYCHIATRIC: [] Denies alcohol or illicit drug abuse. ENDOCRINE: Denies history of diabetes, thyroid disorders. Past Medical/Surgical History Medical Problems: (1) Basal cell carcinoma (2) Chronic neck pain (3) COPD (chronic obstructive pulmonary disease) (4) Depression (5) Gastritis (6) History of Meckel's diverticulum (7) HTN (hypertension) (8) Suicide attempt (9) Syncope Surgical Problems: (1) H/O hernia repair (2) History of appendectomy (3) History of colon resection (4) Hx of cardiac cath (5) 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 Social History Problems: (1) Alcohol abuse Family History FH: CAD (coronary artery disease) FATHER TIAs FATHER Social History Smoking Status: Current Every Day Smoker Alcohol Use: occasionally Drug Use: none Marital Status: single Housing Status: lives alone Occupation Status: disabled Current/Historical Medications Scheduled Ascorbic Acid (Vitamin C), 1,000 MG PO QAM Budesonide/Formoterol Fumarate (Symbicort 160/4.5 Inhaler ), 2 PUFFS INH BID Hydrochlorothiazide (Hctz), 25 MG PO QAM Metoprolol Succ (Toprol Xl) (Toprol-Xl ), 100 MG PO QAM Oxygen (Oxygen), 3 LITERS NA HS Pantoprazole (Protonix), 40 MG PO QAM Scheduled PRN Albuterol Hfa (Ventolin Hfa), 2 PUFFS INH QID PRN for Shortness of Breath Zolpidem Tartrate (Ambien), 10 MG PO HS PRN for Sleep Allergies Coded Allergies: Onion (Verified Allergy, Unknown, RASH AND GI UPSET, 11/16/16) Shellfish (Verified Adverse Reaction, Severe, ANAPHYLAXIS, 11/16/16) Captopril (Verified Adverse Reaction, Intermediate, "felt bad", 11/16/16) Codeine (Verified Adverse Reaction, Unknown, nausea; nightmares, 11/16/16) Physical Exam Vital Signs Date Time Temp Pulse Resp B/P (MAP) Pulse Ox O2 Delivery O2 Flow Rate FiO2 01/31/17 14:35 94 Room Air 01/31/17 14:18 121 18 158/101 94 Room Air 01/31/17 13:35 116 01/31/17 13:25 110 22 141/104 96 Room Air 01/31/17 13:22 140/104 01/31/17 12:09 115 18 159/128 95 Room Air 01/31/17 10:06 112 18 133/96 94 Room Air 01/31/17 09:03 138/100 132/83 121/83 01/31/17 08:50 95 Room Air 01/31/17 08:35 36.6 115 18 156/114 95 Room Air Physical Exam CONSTITUTIONAL: No acute distress. Well appearing and well nourished. Alert and oriented X 4 with normal affect. HEENT: Normocephalic, atraumatic. Pupils equal, round and reactive to light, EOMI. TMs normal. Pharynx normal. Dry mucus membranes. NECK: Supple, full active range of motion without discomfort. No midline tenderness. RESPIRATORY: Clear to auscultation bilaterally with no wheezing, crackles, rhonchi or stridor. Equal expansion bilaterally. CARDIOVASCULAR: Tachycardic. Regular rhythm with no murmurs, rubs or gallops. Normal peripheral perfusion. No edema. CHEST WALL: Left lateral and anterior tenderness, no ecchymosis or abrasions, no crepitus, no palpable rib fracture or other deformity. GASTROINTESTINAL: Soft, nontender, nondistended. Bowel sounds present in all quadrants. No ecchymosis or abrasions. MUSCULOSKELETAL: Full range of motion of all joints without discomfort. INTEGUMENTARY: No rash or other significant dermatologic conditions noted. Small nickel-sized abrasion to left forearm, bleeding controlled. NEUROLOGIC: Cranial nerves II-XII grossly intact. No focal neurologic deficits noted. Normal motor, normal strength, normal coordination. Medical Decision & Procedures ER Provider Diagnostic Interpretation: CT HEAD WITHOUT CONTRAST (CT) CLINICAL HISTORY: Syncope. Altered mental status. Patient woke up on floor. COMPARISON STUDY: 03/29/2015 TECHNIQUE: Axial CT of the brain is performed from the vertex to the skull base. IV contrast was not administered for this examination. CT DOSE: FINDINGS: No intra or extra-axial mass lesions are visualized. There is no CT evidence of acute cortical infarction. There is no evidence of midline shift. There is no acute hemorrhage. No calvarial fractures are visualized. There are minimal white matter hypodensities likely on a small vessel basis. There is no evidence of pathologic ventricular dilatation. There is no evidence of acute sinusitis IMPRESSION: No acute intracranial findings ----- CHEST 2 VIEWS ROUTINE CLINICAL HISTORY: Weakness. Altered mental status. COMPARISON STUDY: 09/26/2015 FINDINGS: The heart is normal in size. There is suspected underlying emphysema. There is mild chronic basilar interstitial thickening. There is no lobar consolidation. There is no failure. There are no pleural effusions.[ IMPRESSION: Emphysema. No acute findings. Laboratory Results 01/31/17 08:30 Red Blood Count 5.34, Mean Corpuscular Volume 90.6, Mean Corpuscular Hemoglobin 31.8, Mean Corpuscular Hemoglobin Concent 35.1, Mean Platelet Volume 10.0, Neutrophils (%) (Auto) 62.5, Lymphocytes (%) (Auto) 23.9, Monocytes (%) (Auto) 11.5, Eosinophils (%) (Auto) 1.3, Basophils (%) (Auto) 0.3, Neutrophils # (Auto ) 4.97, Lymphocytes # (Auto) 1.90, Monocytes # (Auto) 0.91, Eosinophils # (Auto ) 0.10, Basophils # (Auto) 0.02 Test 01/31/17 08:29 01/31/17 08:30 01/31/17 08:55 01/31/17 09:25 Bedside Glucose 97 mg/dl (70-99) White Blood Count 7.94 K/uL (4.8-10.8) Red Blood Count 5.34 M/uL (4.7-6.1) Hemoglobin 17.0 g/dL (14.0-18.0) Hematocrit 48.4 % (42-52) Mean Corpuscular Volume 90.6 fL (80-100) Mean Corpuscular Hemoglobin 31.8 pg (25-34) Mean Corpuscular Hemoglobin Concent 35.1 g/dl (32-36) Platelet Count 164 K/uL (130-400) Mean Platelet Volume 10.0 fL (7.4-10.4) Neutrophils (%) (Auto) 62.5 % Lymphocytes (%) (Auto) 23.9 % Monocytes (%) (Auto) 11.5 % Eosinophils (%) (Auto) 1.3 % Basophils (%) (Auto) 0.3 % Neutrophils # (Auto) 4.97 K/uL (1.4-6.5) Lymphocytes # (Auto) 1.90 K/uL (1.2-3.4) Monocytes # (Auto) 0.91 K/uL (0.11-0.59) Eosinophils # (Auto) 0.10 K/uL (0-0.5) Basophils # (Auto) 0.02 K/uL (0-0.2) RDW Standard Deviation 50.1 fL (36.4-46.3) RDW Coefficient of Variation 14.9 % (11.5-14.5) Immature Granulocyte % (Auto) 0.5 % Immature Granulocyte # (Auto) 0.04 K/uL (0.00-0.02) Prothrombin Time 9.4 SECONDS (9.0-12.0) Prothromb Time International Ratio 0.9 (0.9-1.1) Activated Partial Thromboplast Time 26.4 SECONDS (21.0-31.0) Partial Thromboplastin Ratio 1.0 Magnesium Level 2.5 mg/dl (1.8-2.4) Total Bilirubin 0.5 mg/dl (0.2-1) Direct Bilirubin 0.1 mg/dl (0-0.2) Aspartate Amino Transf (AST/SGOT) 56 U/L (15-37) Alanine Aminotransferase (ALT/SGPT) 75 U/L (12-78) Alkaline Phosphatase 98 U/L (45-117) Total Creatine Kinase 366 U/L (39-308) Total Protein 8.7 gm/dl (6.4-8.2) Albumin 4.3 gm/dl (3.4-5.0) Lipase 927 U/L (73-393) Thyroid Stimulating Hormone (TSH) 0.341 uIu/ml (0.300-4.500) Bedside Troponin I 0.000 ng/ml (0-0.045) Ethyl Alcohol mg/dL 163.0 mg/dl (0-3) Test 01/31/17 10:40 Urine Color YELLOW Urine Appearance CLEAR (CLEAR) Urine pH 6.0 (4.5-7.5) Urine Specific [place] 1.009 (1.000-1.030) Urine Protein NEG (NEG) Urine Glucose (UA) NEG (NEG) Urine Ketones NEG (NEG) Urine Occult Blood NEG (NEG) Urine Nitrite NEG (NEG) Urine Bilirubin NEG (NEG) Urine Urobilinogen NEG (NEG) Urine Leukocyte Esterase NEG (NEG) Urine Opiates Screen POS (NEG) Urine Methadone, Qualitative NEG (NEG) Urine Barbiturates NEG (NEG) Urine Phencyclidine (PCP) Level NEG (NEG) Ur Amphetamine/Methamphetamine NEG (NEG) MDMA (Ecstasy) Screen NEG (NEG) Urine Benzodiazepines Screen NEG (NEG) Urine Cocaine Metabolite NEG (NEG) Urine Marijuana (THC) NEG (NEG) Medications Administered Medications (Trade) Dose Ordered Sig/Tyree Route Start Time Stop Time Status Last Admin Dose Admin Sodium Chloride 1,000 ml @ 999 mls/hr Q1H1M STAT IV 01/31/17 08:40 01/31/17 09:40 DC 01/31/17 09:09 999 MLS/HR Morphine Sulfate (MoRPHine SULFATE INJ) 4 mg NOW STAT IV 01/31/17 09:01 01/31/17 09:02 DC 01/31/17 09:09 4 MG Ondansetron HCl (Zofran Inj) 4 mg NOW STAT IV 01/31/17 09:01 01/31/17 09:02 DC 01/31/17 09:08 4 MG Potassium Chloride (Klor-Con M10) 40 meq NOW STAT PO 01/31/17 09:26 01/31/17 09:31 DC 01/31/17 10:05 40 MEQ Potassium Chloride (Kcl 10 Meq / Wtr) 10 meq Q1H IV 01/31/17 09:45 01/31/17 12:46 DC 01/31/17 12:09 10 MEQ Oxycodone/ Acetaminophen (Percocet 5-325mg Tab) 1 tab NOW STAT PO 01/31/17 10:28 01/31/17 10:30 DC 01/31/17 10:34 1 TAB Multivitamins 10 ml/Thiamine HCl 100 mg/Folic Acid 1 mg/Sodium Chloride 1,011.2 ml @ 500 mls/ hr Q2H2M ONCE IV 01/31/17 11:45 01/31/17 13:46 DC 01/31/17 12:09 500 MLS/HR Oxycodone/ Acetaminophen (Percocet 5-325mg Tab) 1 tab NOW ONCE PO 01/31/17 12:00 01/31/17 12:01 DC 01/31/17 12:08 1 TAB Metoprolol Succinate (Toprol Xl Tab) 100 mg NOW STAT PO 01/31/17 13:24 01/31/17 13:26 DC 01/31/17 14:18 100 MG Hydrochlorothiazide (Hydrochlorothiazide Tab) 25 mg NOW STAT PO 01/31/17 13:24 01/31/17 13:26 DC 01/31/17 14:18 25 MG Diazepam (Valium Tab) 10 mg NOW STAT PO 01/31/17 13:47 01/31/17 13:49 DC 01/31/17 14:18 10 MG Oxycodone/ Acetaminophen (Percocet 5-325mg Tab) 2 tab Q6H PRN PO 01/31/17 14:30 02/14/17 14:29 01/31/17 16:43 2 TAB ECG Indication: tachycardia, syncope Rate (beats per minute): 121 Rhythm: sinus tachycardia Findings: no acute ischemic change, no ectopy Change: no significant change (03/29/2016) Medical Decision CC: Patient presenting with complaint of syncope Interpretation of Labs: No leukocytosis, H/H high normal, hyponatremia, hypochloremia, significant hypokalemia, normal renal function, no significant abnormalities of liver function, elevated lipase. Elevated alcohol level. Differential Diagnosis: Includes, but not limited to dehydration, electrolyte abnormality, ACS, dysrhythmia, anemia, intracranial hemorrhage, rib fractures. Medication Reconciliation: I attest that I have personally reviewed the patient' s current medication list. Vital signs review: I reviewed the patient's vital signs and interpret them as follows: T: Afebrile; BP: Hypertensive; HR: Tachycardic; RR: Within normal limits; Pulse Ox: Within normal limits on room air. Blood pressure screening: The patient was found to have an elevated blood pressure and was referred to their primary doctor for recheck and further treatment. Summary: Patient was evaluated at bedside, history of physical exam performed. Patient is alert and oriented, in no acute distress, though he does complain of significant pain in his left side and a headache. Patient noted to be tachycardic in the 110-120s, regular rate and rhythm, and hypertensive. Patient smells of alcohol, but denies any recent alcohol intake when asked. Neurologic exam is normal with no focal deficits. Left anterior and lateral chest discomfort with palpation. Lung sounds equal bilaterally. No ecchymosis, abrasions, or exam findings concerning for chest or abdominal 9trauma. Patient complaining of significant pain, asking for medication. He states he cannot take fentanyl, and states that Dilaudid works the best for him. On further discussion and review of the chart patient does admit that he is a patient of chronic pain management. He states his pain medications were recently changed. Orders were placed at bedside for labs, UA and UDS, EKG, chest x-ray, head CT to evaluate for ICH. Patient discussed with Dr. Evans, who agrees with my assessment and plan. Labs reviewed, abnormalities noted above, most significantly for hypokalemia, elevated lipase. Replacement oral and IV ordered. Patient also noted to have an elevated alcohol level. When confronted about this, patient does admit that he drank a bottle of wine during the night. He denies regular alcohol consumption, but does note that he buys "a few boxes of wine every couple weeks." Patient given IV fluid bolus, IV banana bag, IV and PO pain medication. CT of the head reviewed and negative for acute intracranial hemorrhage. Chest x -ray reviewed and also negative for any acute abnormalities. Patient frequently on the call estrada asking nurses for more pain medications, and they notified me. I discussed with the patient at bedside several times that due to his intoxicated state and his standing agreement with chronic pain management, I will not give him any further IV pain medications. His prescribed PO pain medications were ordered and given. He was also given his home doses of blood pressure medicine, as he states he did not take these today. Patient is persistently tachycardic after 2 L of fluid and pain medicine, given his positive alcohol and inconsistent history, concern for alcohol withdrawal, as well as hypokalemia and pancreatitis. PO Valium ordered. I discussed at length with Dr. Evans, she agrees with my plan to admit the patient for further evaluation for withdrawal. Hospitalist called for admission, spoke with Dr. Morelos, who agrees with admission. Impression Primary Impression: Syncope Additional Impressions: Pancreatitis Hypokalemia Departure Information Referrals Zach Monroy M.D. (PCP) Patient Instructions My [facility] Problem Qualifiers Primary Impression: Syncope Syncope type: unspecified Qualified Codes: R55 - Syncope and collapse Additional Impressions: Pancreatitis Chronicity: acute Pancreatitis type: alcohol induced Acute pancreatitis complication: unspecified Qualified Codes: K85.20 - Alcohol induced acute pancreatitis without necrosis or infection
[2017-01-31] MEDS ORDERED: LORAZEPAM 2 MG/ML 1 ML VIAL IV PRN (14:30)
[2017-01-31 14:35] VITALS: O2SAT 94; Ht 185.4 cm; Wt 89.9 kg
[2017-01-31] MEDS ORDERED: OPTIRAY 320 IV PRN (15:00)
[2017-01-31] MEDS ORDERED: POLYETHYLENE (MIRALAX) 17 GM PACK PO PRN (15:45)
[2017-01-31 16:31] VITALS: BP 144/88; PULSE 89; TEMP 36.6; O2SAT 95
[2017-01-31] MEDS: OXYCODONE/ACETAMINOPHEN 5-325 TAB PO PRN ×2 (16:43→22:42)
[2017-01-31 16:51] LABS: POTASSIUM 4.1 mmol/L (3.5-5.1)
[2017-01-31 16:53] LABS: BUN/CREATININE RATIO 9.5 (10-20); CALCIUM 7.3 mg/dl (8.5-10.1); CREATININE 0.93 mg/dl (0.60-1.40); POTASSIUM 3.8 mmol/L (3.5-5.1)
[2017-01-31] MEDS ORDERED: MULTI-VITAMIN INFUSION INJ 10 ML, THIAMINE HCL INJ 100 MG, FoLIC ACID INJ 1 MG in SODIU... IV SCH (17:30)
--- NOTE | 2017-01-31 17:58 | DIAGNOSTIC IMAGING REPORT ---
CT OF THE ABDOMEN AND PELVIS WITH CONTRAST CLINICAL HISTORY: Rule out pancreatitis with elevated lipase /history of alcohol COMPARISON STUDY: CT of the abdomen and pelvis and right upper quadrant ultrasound March 29, 2016. TECHNIQUE: Following IV administration of 119 mL of Optiray-320, axial images of the abdomen and pelvis were obtained from the lung bases to the proximal femurs. Images were reviewed in the axial, sagittal, and coronal planes. IV contrast was administered without complication. Oral contrast was administered. CT DOSE: 444.01 mGy.cm FINDINGS: A moderate sized hiatal hernia is present. There are multiple water attenuation hepatic lesions consistent with cysts which measure up to 5 cm. A few subcentimeter hepatic lesions are too small to characterize but likely reflect cysts as well. There is a 7 cm cyst which arises from the upper pole of the left kidney. A 1.1 cm lesion arising from the upper pole the right kidney is too small to characterize. There is moderate right renal atrophy. There is no hydronephrosis. There is no peripancreatic infiltration or fluid. No biliary or pancreatic ductal dilatation is present. There is no evidence for a bowel obstruction. The appendix is not visualized. There is no lymphadenopathy or ascites. The liver morphology is normal. Major hepatic vessels appear patent. IMPRESSION: 1. No acute process within the abdomen or pelvis. Normal CT appearance of the pancreas. 2. Multiple hepatic and renal cysts. 3. Moderate right renal atrophy. No hydronephrosis. Electronically signed by: Bandar Martinez M.D. 01/31/2017 5:57 PM Dictated Date/Time: 01/31/2017 5:50 PM
[2017-01-31] MEDS: ALBUTEROL HFA 8 GM INHALER INH PRN (19:14)
[2017-01-31 19:41] VITALS: BP 122/76; PULSE 95; TEMP 36.8; O2SAT 93
[2017-01-31 19:42] VITALS: BP_SYST 126; BP_SYST 128; BP_DIAS 72; BP_DIAS 82; PULSE 106; PULSE 115
[2017-01-31] MEDS ORDERED: GABAPENTIN 800MG LOADING DOSE PO SCH (20:00)
[2017-01-31] MEDS: BUDESONIDE/FORMOTEROL FUMARATE 160/4.5 60 PUFFS/INHALER INH SCH (20:12)
[2017-01-31 21:06] VITALS: PULSE 78; O2SAT 95
[2017-01-31] MEDS ORDERED: TRAMADOL HCL 50 MG TAB PO STA (21:11)
[2017-01-31] MEDS ORDERED: TRAMADOL HCL 50 MG TAB ONE (21:15)
[2017-01-31 23:04] VITALS: BP 142/81; PULSE 87; TEMP 36.9; O2SAT 90
[2017-01-31] MEDS: ZOLPIDEM TARTRATE 5 MG TAB PO PRN (23:48)
[2017-02-01] VITALS (10 sets, daily range): BP systolic 117–160; BP diastolic 58–100; PULSE 74–99; TEMP 36.4–36.9; O2SAT 90–96
[2017-02-01] MEDS: ALBUTEROL HFA 8 GM INHALER INH PRN ×3 (04:07→23:30)
[2017-02-01] MEDS: GABAPENTIN 400MG Q6H DOSE PO SCH ×2 (05:56→11:38)
[2017-02-01] MEDS: OXYCODONE/ACETAMINOPHEN 5-325 TAB PO PRN ×3 (05:57→18:57)
[2017-02-01 07:24] LABS: BUN/CREATININE RATIO 12.1 (10-20); CALCIUM 7.5 mg/dl (8.5-10.1); CREATININE 0.84 mg/dl (0.60-1.40); POTASSIUM 3.7 mmol/L (3.5-5.1)
[2017-02-01 07:28] LABS: ALB/GLOB RATIO 1.1 (0.9-2)
[2017-02-01 08:03] LABS: HEMATOCRIT 36.2 % (42-52); MEAN CELL VOLUME 94.5 fL (80-100); MEAN CORPUSCULAR HEMOGLOBIN 32.4 pg (25-34); MEAN CORPUSCULAR HGB CONC 34.3 g/dl (32-36); MEAN PLATELET VOLUME 9.6 fL (7.4-10.4); PLATELET COUNT 107 K/uL (130-400); RED BLOOD COUNT 3.83 M/uL (4.7-6.1); WHITE BLOOD COUNT 4.35 K/uL (4.8-10.8)
[2017-02-01] MEDS: ASCORBIC ACID 500 MG TAB PO SCH (08:22)
[2017-02-01] MEDS: BUDESONIDE/FORMOTEROL FUMARATE 160/4.5 60 PUFFS/INHALER INH SCH ×2 (08:22→20:15)
[2017-02-01] MEDS: THIAMINE HCL 100 MG TAB PO SCH (08:22)
[2017-02-01] MEDS: PANTOprazole SOD 40 MG TAB PO SCH (08:23)
[2017-02-01] MEDS: HYDROCHLOROTHIAZIDE 25 MG TAB PO SCH (08:23)
[2017-02-01] MEDS: METOPROLOL SUCC 50MG EXT REL TAB PO SCH (08:23)
[2017-02-01] MEDS: NICOTINE 14 MG/24 HR TDSY TD SCH (08:25)
[2017-02-01] MEDS ORDERED: PERFLUTREN LIPID MICROSPHERE (DEFINITY) IV ONE (14:26)
--- NOTE | 2017-02-01 15:25 | ECHOCARDIOGRAM REPORT ---
*NOTICE TO RECEIVING DEMOCRAT AGENCY This information is strictly Confidential and protected under [place] law. [place] law prohibits you from making any further disclosure of this information unless further disclosure is expressly permitted by the written consent of the person to whom it pertains or is authorized by law. A general authorization for the release of medical or other information is not sufficient for this purpose. Hospital accepts no responsibility if the information is made available to any other person, INCLUDING THE PATIENT. Interpretation Summary * Name: KIRBY GERMAN Study Date: 02/01/2017 01:30 PM BP: 117/75 mmHg * Patient Location: .[facility]\S\N285\S\2 HR: 74 * : 1955 (M/d/yyyy) Gender: Male Height: 73 in * Age: 61 yrs Ethnicity: [place] Weight: 197 lb * Ordering Physician: Sammie Morelos. * Referring Physician: Self, Referred * Performed By: Shira White RDCS * * Reason For Study: Syncope * BSA: 2.1 m2 * -- Conclusions -- * The left ventricular wall motion is normal. * The LV Ejection Fraction = 55-60%. * Aortic valve sclerosis moderate, without significant aortic valvular stenosis. Procedure Details * A complete two-dimensional transthoracic echocardiogram was performed (2D, M-mode, Doppler and color flow Doppler). * A contrast injection of Definity was performed to improve assessment of LV function. * Contrast was injected into an intravenous site in the left arm. * One vial of Definity ultrasound contrast was diluted in normal saline to a total volume of 10 ml. A total of '4' ml of solution was administered during imaging. * Lot # [id number] of Definity utilized for procedure. * Expiration date MAR 13. * The attending nurse who injected the contrast agent was Jennyfer Marquez RN. Left Ventricle * The left ventricle is normal in size. * There is normal left ventricular wall thickness. * Left ventricular systolic function is normal. * Ejection Fraction = 55-60%. * The left ventricular wall motion is normal. Right Ventricle * The right ventricle is normal size. * The right ventricular systolic function is normal as assessed by tricuspid annular plane systolic excursion (TAPSE) (normal >1.5 cm). Atria * The left atrial size is normal. * Right atrial size is normal. * There is no evidence of atrial septal defect, but resolution does not allow assessment for a patent foramen ovale. Mitral Valve * The mitral valve is normal. * There is no mitral valve stenosis. * Significant mitral regurgitation is absent. Tricuspid Valve * The tricuspid valve is normal. * There is no tricuspid stenosis. * Significant tricuspid regurgitation is absent. Aortic Valve * The aortic valve is trileaflet. * Aortic valve sclerosis moderate, without significant aortic valvular stenosis. * Aortic stenosis is absent. * There is no significant aortic regurgitation. Pulmonic Valve * The pulmonary valve is not well seen, but the Doppler examination is normal without significant regurgitation or stenosis. Great Vessels * The aortic root and proximal ascending aorta are normal sized. Pericardium/Pleural * There is no pericardial effusion. Great Vessels * Normal inferior vena cava diameter and respiratory variation suggests normal central venous pressure. * Normal inferior vena cava size and collapsability with sniff indicates a normal right atrial pressure of 3 mmHg Left Ventricular Diastolic Function * Grade I diastolic dysfunction, (abnormal relaxation pattern). MMode 2D Measurements and Calculations IVSd 0.67 cm LVIDd 4.5 cm LVIDs 3.0 cm LVPWd 1.1 cm IVS/LVPW 0.63 FS 33.3 % EDV(Teich) 90.9 ml ESV(Teich) 34.4 ml EF(Teich) 62.2 % EDV(cubed) 89.1 ml ESV(cubed) 26.4 ml EF(cubed) 70.4 % LV mass(C)d 125.2 grams LV mass(C)dI 58.5 grams/m\S\2 SV(Teich) 56.5 ml SI(Teich) 26.4 ml/m\S\2 SV(cubed) 62.7 ml SI(cubed) 29.3 ml/m\S\2 Ao root diam 3.2 cm Ao root area 8.1 cm\S\2 ACS 1.3 cm LA dimension 2.6 cm LA/Ao 0.81 LVOT diam 2.0 cm LVOT area 3.2 cm\S\2 LVAd ap4 27.7 cm\S\2 LVLd ap4 7.7 cm EDV(MOD-sp4) 83.0 ml EDV(sp4-el) 84.9 ml LVAs ap4 14.1 cm\S\2 LVLs ap4 5.9 cm ESV(MOD-sp4) 27.8 ml ESV(sp4-el) 28.6 ml EF(MOD-sp4) 66.5 % EF(sp4-el) 66.3 % LVAd ap2 20.0 cm\S\2 LVLd ap2 7.2 cm EDV(MOD-sp2) 46.7 ml EDV(sp2-el) 47.1 ml LVAs ap2 10.0 cm\S\2 LVLs ap2 5.3 cm ESV(MOD-sp2) 16.0 ml ESV(sp2-el) 16.0 ml EF(MOD-sp2) 65.7 % EF(sp2-el) 65.9 % LVLd %diff -6.63 % EDV(MOD-bp) 63.6 ml LVLs %diff -12.90 % ESV(MOD-bp) 22.3 ml EF(MOD-bp) 64.9 % SV(MOD-sp4) 55.2 ml SI(MOD-sp4) 25.8 ml/m\S\2 SV(MOD-sp2) 30.7 ml SI(MOD-sp2) 14.3 ml/m\S\2 SV(MOD-bp) 41.3 ml SI(MOD-bp) 19.3 ml/m\S\2 SV(sp4-el) 56.3 ml SI(sp4-el) 26.3 ml/m\S\2 SV(sp2-el) 31.0 ml SI(sp2-el) 14.5 ml/m\S\2 Doppler Measurements and Calculations MV E max sherita 69.6 cm/sec MV A max sherita 71.1 cm/sec MV E/A 0.98 MV dec time 0.22 sec Ao V2 max 118.4 cm/sec Ao max PG 5.6 mmHg Ao max PG (full) 3.3 mmHg ZACK(V,A) 2.1 cm\S\2 ZACK(V,D) 2.1 cm\S\2 LV V1 max PG 2.3 mmHg LV V1 max 76.5 cm/sec PA V2 max 71.9 cm/sec PA max PG 2.1 mmHg PA acc slope 382.3 cm/sec\S\2 PA acc time 0.12 sec TR max sherita 290.3 cm/sec PA pr(Accel) 26.7 mmHg
[2017-02-01] MEDS ORDERED: OPTIRAY 320 IV PRN (16:15)
--- NOTE | 2017-02-01 17:58 | DIAGNOSTIC IMAGING REPORT ---
CHEST CTA for PULMONARY ARTERIES CT DOSE: 426.42 mGy.cm HISTORY: Chest pain dyspnea TECHNIQUE: Multiaxial CT images of the chest were performed following the intravenous administration of contrast to evaluate the pulmonary arteries. Maximal intensity projection images were also obtained. COMPARISON STUDY: None. FINDINGS: Moderate ectatic change of the thoracic aorta. No evidence for aneurysm or dissection. Pulmonary arterial vasculature enhances appropriately. There is no evidence for pulmonary embolus. Emphysematous change with peribronchial prominence is noted bilaterally. No well-defined focal infiltrate is appreciated. Mild bibasilar dependent atelectatic change. IMPRESSION: No evidence for pulmonary embolus. Moderate emphysematous change. Moderate peribronchial thickening. Electronically signed by: Raman Julio M.D. 02/01/2017 5:56 PM Dictated Date/Time: 02/01/2017 5:53 PM
--- NOTE | 2017-02-01 18:30 | DIAGNOSTIC IMAGING REPORT ---
RIBS BILATERAL WITH PA CHEST CLINICAL HISTORY: lower chest pain pain COMPARISON STUDY: 01/31/2017 FINDINGS: Negative bilateral ribs. Cortical margins are intact. Lungs are clear. Mild emphysematous change. IMPRESSION: Chronic change. No acute process. Electronically signed by: Raman Julio M.D. 02/01/2017 6:29 PM Dictated Date/Time: 02/01/2017 6:28 PM
--- NOTE | 2017-02-01 18:56 | Progress Note ---
Internal Med Progress Note Date of Service: Feb 01, 2017. Provider Documentation: SUBJECTIVE: complains of pain on his left side of chest concerned for any soft tissue damage and wants to get ct chest and cxr afebrile still feeling dizzy has sob no chest pain OBJECTIVE: Vital Signs-as noted below Exam: General-alert and awake. Not in distress ENT-Normal hearing Neck-no neck masses, supple Lungs-cta b/l no wheezing or crackles Heart-s1 and s2 heard regular , no murmurs Abdomen-soft bowel sounds present non tender no distension Extremities- no edema present no erythema Neuro-alert and awake moves extremities Lab data as noted below. ASSESSMENT & PLAN: SYNCOPE/DIZZINESS Most Likely secondary to Alcohol intoxication . Work up- CT head- negative, Tele monitoring to w/f arrhythmias, orthostatics ordered echo unremarkable ALCOHOL INTOXICATION Alcohol level 163 in ED. Alcohol withdrawal protocol ordered received IV Banana bag/Thiamine/Folic acid -Urine toxicology- positive for opiates - takes percocet at home. To avoid IV narcotics as patient is constantly demanding - would be cautious with alcohol intoxication and risk of withdrawal. Continue with percocet as at home to avoid withdrawal SEVERE HYPOKALEMIA replaxced ELEVATED CPK In 300s likely secondary to fall 243 today SINUS TACHYCARDIA ok now ELEVATED LIPASE Lipase 927- ct scan unremarkable COPD TOBACCO ABUSE DISORDER NOCTURNAL HYPOXIA No signs of exacerbation On 3 L oxygen at night CXR- emphysema Nicotine patch HX OF BARRETTS ESOPHAGEUS/GASTRITIS/HIATAL HERNIA Per recent endoscopy 11/2016 on protonix HTN- home meds 'will monitor CHRONIC PAIN ON NARCOTICS Says has degenerative back issues for which he takes these pain medications per pain management Continue with percocet 10/325 mg QID prn - home med. Would avoid any IV Narcotics in setting of alcohol intoxication/withdrawal and risk of abuse potential DVT PROPHYLAXIS scds DISPOSITION possible d/c in am Vital Signs: Date Time Temp Pulse Resp B/P (MAP) Pulse Ox O2 Delivery O2 Flow Rate FiO2 02/01/17 16:00 Room Air 02/01/17 14:57 36.4 81 16 124/77 (93) 96 132/75 (94) 134/82 (99) 02/01/17 12:30 Room Air 02/01/17 11:21 36.9 74 16 117/75 (89) 94 02/01/17 08:45 Room Air 02/01/17 07:22 36.5 78 16 129/74 (92) 92 89 124/82 (96) 91 135/79 (97) 02/01/17 04:23 36.4 77 18 138/58 (84) Room Air 02/01/17 04:00 91 Room Air 02/01/17 00:00 91 Room Air 02/01/17 00:00 36.5 90 18 133/78 (96) 91 Room Air 02/01/17 00:00 79 18 157/79 (105) 02/01/17 00:00 98 18 148/84 (105) 01/31/17 23:04 36.9 87 18 142/81 (101) 90 Room Air 01/31/17 21:06 78 18 95 Room Air 01/31/17 20:00 Room Air 01/31/17 19:42 106 128/72 (90) 01/31/17 19:42 115 126/82 (97) 01/31/17 19:41 36.8 95 16 122/76 (91) 93 Room Air Lab Results: Results Past 24 Hours Test 02/01/17 06:28 Range/Units White Blood Count 4.35 4.8-10.8 K/uL Red Blood Count 3.83 4.7-6.1 M/uL Hemoglobin 12.4 14.0-18.0 g/dL Hematocrit 36.2 42-52 % Mean Corpuscular Volume 94.5 80-100 fL Mean Corpuscular Hemoglobin 32.4 25-34 pg Mean Corpuscular Hemoglobin Concent 34.3 32-36 g/dl RDW Standard Deviation 53.5 36.4-46.3 fL RDW Coefficient of Variation 15.5 11.5-14.5 % Platelet Count 107 130-400 K/uL Mean Platelet Volume 9.6 7.4-10.4 fL Sodium Level 135 136-145 mmol/L Potassium Level 3.7 3.5-5.1 mmol/L Chloride Level 100 98-107 mmol/L Carbon Dioxide Level 26 21-32 mmol/L Anion Gap 9.0 3-11 mmol/L Blood Urea Nitrogen 10 7-18 mg/dl Creatinine 0.84 0.60-1.40 mg/dl Est Creatinine Clear Calc Drug Dose 101.7 ml/min Estimated GFR () 108.0 Estimated GFR (Non- 93.2 BUN/Creatinine Ratio 12.1 10-20 Random Glucose 81 70-99 mg/dl Calcium Level 7.5 8.5-10.1 mg/dl Total Bilirubin 0.6 0.2-1 mg/dl Aspartate Amino Transf (AST/SGOT) 27 15-37 U/L Alanine Aminotransferase (ALT/SGPT) 44 12-78 U/L Alkaline Phosphatase 69 45-117 U/L Total Creatine Kinase 243 39-308 U/L Total Protein 6.0 6.4-8.2 gm/dl Albumin 3.2 3.4-5.0 gm/dl Globulin 2.8 2.5-4.0 gm/dl Albumin/Globulin Ratio 1.1 0.9-2 Lipase 567 73-393 U/L
[2017-02-01] MEDS: GABAPENTIN 400MG Q8H DOSE PO SCH (21:51)
[2017-02-02] MEDS: ZOLPIDEM TARTRATE 5 MG TAB PO PRN (01:00)
[2017-02-02] MEDS: OXYCODONE/ACETAMINOPHEN 5-325 TAB PO PRN ×2 (01:01→07:18)
[2017-02-02 04:11] VITALS: BP 129/72; PULSE 70; TEMP 36.6; O2SAT 96
[2017-02-02] MEDS: GABAPENTIN 400MG Q8H DOSE PO SCH (06:12)
[2017-02-02 07:08] VITALS: BP 157/98; PULSE 78; TEMP 36.3; O2SAT 96
[2017-02-02] MEDS: HYDROCHLOROTHIAZIDE 25 MG TAB PO SCH (07:35)
[2017-02-02] MEDS: METOPROLOL SUCC 50MG EXT REL TAB PO SCH (07:35)
[2017-02-02] MEDS: BUDESONIDE/FORMOTEROL FUMARATE 160/4.5 60 PUFFS/INHALER INH SCH (07:35)
[2017-02-02] MEDS: THIAMINE HCL 100 MG TAB PO SCH (07:35)
[2017-02-02] MEDS: PANTOprazole SOD 40 MG TAB PO SCH (07:35)
[2017-02-02] MEDS: NICOTINE 14 MG/24 HR TDSY TD SCH (07:36)
[2017-02-02] MEDS: ASCORBIC ACID 500 MG TAB PO SCH (07:36)
[2017-02-02 08:48] VITALS: BP 157/98; PULSE 78; TEMP 36.3; O2SAT 96
[2017-02-02] MEDS ORDERED: THM100 PO (09:05)
[2017-02-02] MEDS ORDERED: ANT25 PO (09:05)
[2017-02-02] MEDS ORDERED: MULT-1042 PO (09:05)
[2017-02-02] MEDS ORDERED: FLV1 PO (09:05)
--- NOTE | 2017-02-02 09:07 | Discharge Instructions ---
Discharge Instructions Date of Service Feb 02, 2017. Admission Reason for Admission: Alcohol Abuse, Syncope Discharge Discharge Diagnosis / Problem: alcoholism, syncope Discharge Goals Goal(s): Decrease discomfort Activity Recommendations Activity Limitations: resume your previous activity . Instructions / Follow-Up Instructions / Follow-Up FOLLOWUP WITH FAMILY DOCTOR Zach Marcelo ON January AT 1PM. Current Hospital Diet Patient's current hospital diet: AHA Diet (Heart Healthy), Low Sodium Diet (2gm Na) Discharge Diet Recommended Diet: AHA Diet (Heart Healthy) Pending Studies Studies pending at discharge: no Medical Emergencies . Who to Call and When: Medical Emergencies: If at any time you feel your situation is an emergency, please call 911 immediately. . Non-Emergent Contact Non-Emergency issues call your: Primary Care Provider . . "Provider Documentation" section prepared by Odilon Abernathy. . VTE Core Measure Inpt VTE Proph given/why not?: KEVON Rogers's
--- NOTE | 2017-02-02 18:15 | Progress Note ---
Internal Med Progress Note Date of Service: Feb 02, 2017. Provider Documentation: SUBJECTIVE: feeling better dizziness much better has some pain but better want to go home OBJECTIVE: Vital Signs-as noted below Exam: General-alert and awake. Not in distress ENT-Normal hearing Neck-no neck masses, supple Lungs-cta b/l no wheezing or crackles Heart-s1 and s2 heard regular , no murmurs Abdomen-soft bowel sounds present non tender no distension Extremities- no edema present no erythema Neuro-alert and awake moves extremities Lab data as noted below. ASSESSMENT & PLAN: SYNCOPE/DIZZINESS Most Likely secondary to Alcohol intoxication . Work up- CT head- negative, Tele monitoring to w/f arrhythmias, orthostatics ordered echo unremarkable CTA chest no PE no rib fx ALCOHOL INTOXICATION Alcohol level 163 in ED. Alcohol withdrawal protocol ordered received IV Banana bag/Thiamine/Folic acid -Urine toxicology- positive for opiates - takes percocet at home. stable SEVERE HYPOKALEMIA replaced ELEVATED CPK In 300s likely secondary to fall 243 today SINUS TACHYCARDIA ok now ELEVATED LIPASE Lipase 927- ct scan unremarkable COPD TOBACCO ABUSE DISORDER NOCTURNAL HYPOXIA No signs of exacerbation On 3 L oxygen at night CXR- emphysema Nicotine patch HX OF BARRETTS ESOPHAGEUS/GASTRITIS/HIATAL HERNIA Per recent endoscopy 11/2016 on Protonix HTN- home meds 'will monitor CHRONIC PAIN ON NARCOTICS Says has degenerative back issues for which he takes these pain medications per pain management Continue with percocet 10/325 mg QID prn - home med. Would avoid any IV Narcotics in setting of alcohol intoxication/withdrawal and risk of abuse potential Discharged home Vital Signs: Date Time Temp Pulse Resp B/P (MAP) Pulse Ox O2 Delivery O2 Flow Rate FiO2 02/02/17 08:48 36.3 78 18 96 Room Air 02/02/17 08:00 Room Air 02/02/17 07:08 36.3 78 18 157/98 (117) 96 Room Air 02/02/17 04:11 36.6 70 18 129/72 (91) 96 Room Air 02/02/17 04:00 Room Air 02/02/17 00:00 Room Air 02/01/17 23:24 36.7 85 18 121/77 (92) 96 Room Air 119/81 (94) 128/78 (95) 02/01/17 20:00 Room Air 02/01/17 19:11 99 20 157/84 (108) 90 Room Air 02/01/17 19:10 94 18 155/87 (109) 96 Room Air 02/01/17 19:09 36.4 90 20 160/100 (120) 93 Room Air
--- NOTE | 2017-02-02 18:18 | Discharge Summary ---
Discharge Summary Date of Service Feb 02, 2017. Discharge Summary Admission Date: Jan 31, 2017 at 14:54 Discharge Date: Feb 02, 2017 Discharge Disposition: Home Principal Diagnosis: alcoholism syncope Secondary Diagnoses/Problems: 1) Basal cell carcinoma Status: Chronic (2) Chronic neck pain Status: Chronic (3) COPD (chronic obstructive pulmonary disease) Status: Chronic (4) Depression Status: Chronic (5) History of Meckel's diverticulum Status: Chronic (6) HTN (hypertension) Status: Chronic (7) Suicide attempt Status: Chronic Procedures: CT HEAD: No acute intracranial findings. CT ABD/PELVIS: 1. No acute process within the abdomen or pelvis. Normal CT appearance of the pancreas. 2. Multiple hepatic and renal cysts. 3. Moderate right renal atrophy. No hydronephrosis. RIB/CHEST XRAY: Chronic change. No acute process. CTA CHEST: No evidence for pulmonary embolus. Moderate emphysematous change. Moderate peribronchial thickening. Medication Reconciliation New Medications: Meclizine HCl (Meclizine HCl) 25 Mg Tab 25 MG PO TID PRN for Dizziness or Vertigo, #30 TABS Multiple Vitamins W/ Minerals (Multi Vitamin and Mineral) 1 Tab Tab 1 TABS PO DAILY, #30 TABS Folic Acid (Folic Acid) 1 Mg Tab 1 MG PO QAM, #30 TAB Thiamine HCl (Vitamin B-1) 100 Mg Tab 100 MG PO QAM, #30 TAB Continued Medications: Albuterol Hfa (Ventolin Hfa) 200 Puffs/41274 Mcg Aers 2 PUFFS INH QID PRN for Shortness of Breath, #1 INHALER Ascorbic Acid (Vitamin C) 500 Mg Tab 1000 MG PO QAM Budesonide/Formoterol Fumarate (Symbicort 160/4.5 Inhaler ) Aero 2 PUFFS INH BID, INHALER Home O2 Therapy (Oxygen) Gas 3 LITERS NA HS Hydrochlorothiazide (Hctz) 25 Mg Tab 25 MG PO QAM Metoprolol Succ (Toprol Xl) (Toprol-Xl ) 100 Mg Tabcr 100 MG PO QAM Pantoprazole (Protonix) 40 Mg Tab 40 MG PO QAM Zolpidem Tartrate (Ambien) 10 Mg Tab 10 MG PO HS PRN for Sleep Admission Information HPI (per Admitting provider): 60-year-old male with past medical history of COPD, hypertension, mood disorder , chronic pain on narcotics, barrets esophagus/Gastritis/hiatal hernia presents to ED with c/o syncope. Before even interviewing, patient keeps complaining of pain and asking for pain medications- especially his percocet, which he has already received along with IV Morphine 4 mg. Patient states that he has been feeling dizzy for the past 10-12 days for which he has seen his PCP. Yesterday night, he had a bottle of wine which he does once in a while. He stood up to go to the bathroom and than collapsed and woke up on the floor today AM. He doesnt recall any symptoms prior to falling- no chest pain, palpitations. He denies any illness or infection in past few days. His alcohol level in ER is 163 , but he gets very upset when we mention about alcohol saying that it is normal to have a glass of wine once in a wine. Denies binge drinking or abuse. Denies any drug abuse. Main c/o pain in left side of his chest (lower) and thinks he must have fractured his ribs, though CXR- no fractures. Says pain is all over and 10/10 in intensity. Denies any abdominal pain specifically, no nausea, vomiting, fever, chills. In ED, patient is tremulous. HR is in 120s, BP 140/110s, Afebrile, 94% on RA. Received 2 tabs of percocet, IV morphine 4 mg in ED. Urine toxi- +ve for opiiates, Alcohol level 163 Received IV fluids, all his morning pills which he missed. Will admit him for syncope, likely related to alcohol intoxication, need to closely monitor him for withdrawal. Physical Exam (per Admitting): General Appearance: + pertinent finding (Tremulous + Irritable + but awake, alert, oriented x 3) Head: normocephalic, atraumatic Eyes: PERRL ENT: hearing grossly normal Neck: supple, no JVD Respiratory/Chest: chest non-tender, lungs clear, normal breath sounds, no respiratory distress, no accessory muscle use Cardiovascular: no edema, normal peripheral pulses, + tachycardia Abdomen/GI: non tender, soft, no organomegaly, + pertinent finding (scar +) Extremities/Musculoskelatal: no calf tenderness, no pedal edema Neurologic/Psych: no motor/sensory deficits, alert, oriented x 3 Skin: normal color Hospital Course SYNCOPE/DIZZINESS Most Likely secondary to Alcohol intoxication . Work up- CT head- negative, Tele monitoring to w/f arrhythmias, orthostatics ordered echo unremarkable CTA chest no PE no rib fx ALCOHOL INTOXICATION Alcohol level 163 in ED. Alcohol withdrawal protocol ordered received IV Banana bag/Thiamine/Folic acid -Urine toxicology- positive for opiates - takes percocet at home. stable SEVERE HYPOKALEMIA replaced ELEVATED CPK In 300s likely secondary to fall 243 today SINUS TACHYCARDIA ok now ELEVATED LIPASE Lipase 927- ct scan unremarkable COPD TOBACCO ABUSE DISORDER NOCTURNAL HYPOXIA No signs of exacerbation On 3 L oxygen at night CXR- emphysema Nicotine patch HX OF BARRETTS ESOPHAGEUS/GASTRITIS/HIATAL HERNIA Per recent endoscopy 11/2016 on Protonix HTN- home meds 'will monitor CHRONIC PAIN ON NARCOTICS Says has degenerative back issues for which he takes these pain medications per pain management Continue with percocet 10/325 mg QID prn - home med. Would avoid any IV Narcotics in setting of alcohol intoxication/withdrawal and risk of abuse potential Discharged home Total time spent on discharge = 35MINUTES This includes examination of the patient, discharge planning, medication reconciliation, and communication with other providers. Discharge Instructions Discharge Instructions Date of Service Feb 02, 2017. Admission Reason for Admission: Alcohol Abuse, Syncope Discharge Discharge Diagnosis / Problem: alcoholism, syncope Discharge Goals Goal(s): Decrease discomfort Activity Recommendations Activity Limitations: resume your previous activity . Instructions / Follow-Up Instructions / Follow-Up FOLLOWUP WITH FAMILY DOCTOR Zach Marcelo ON January AT 1PM. Current Hospital Diet Patient's current hospital diet: AHA Diet (Heart Healthy), Low Sodium Diet (2gm Na) Discharge Diet Recommended Diet: AHA Diet (Heart Healthy) Pending Studies Studies pending at discharge: no Medical Emergencies . Who to Call and When: Medical Emergencies: If at any time you feel your situation is an emergency, please call 911 immediately. . Non-Emergent Contact Non-Emergency issues call your: Primary Care Provider . . "Provider Documentation" section prepared by Odilon Abernathy. . VTE Core Measure Inpt VTE Proph given/why not?: Ihsan Marquez, SCD's
[2017-02-03] MEDS ORDERED: GABAPENTIN 400MG Q12H DOSE PO SCH
[2017-02-03 11:52] LABS: COD UR NEGATIVE NG/ML (CUTOFF=50); HYDROCOD UR NEGATIVE NG/ML (CUTOFF=50); HYDROMOR UR NEGATIVE NG/ML (CUTOFF=50); MORPHINE UR 3840 NG/ML (CUTOFF=50); NORHYDROCODONE CONF UR NEGATIVE NG/ML (CUTOFF=50); OXYMORPH UR NEGATIVE NG/ML (CUTOFF=50)
[2017-02-04] MEDS ORDERED: GABAPENTIN 400MG X1 DOSE PO SCH (12:00)
[2017-06-03] MEDS ORDERED: LCTX PO (12:58)
[2017-06-03] MEDS ORDERED: MTR500 PO (12:58)
[2017-06-03] MEDS ORDERED: OXYC-57 PO (12:58)
[2017-06-03] MEDS ORDERED: LVQ500 PO (12:58)
[2017-06-24] MEDS ORDERED: OXYC-57 PO (16:56)
[2017-06-24] MEDS ORDERED: ASPI1CHW12 PO (16:59)
[2017-06-24] MEDS ORDERED: FLUT1INH INH (16:59)
[2017-06-29] MEDS ORDERED: OXYC-57 PO (12:23)
[2017-06-29] MEDS ORDERED: NRV5 PO (12:23)
[2017-06-29] MEDS ORDERED: MTR500 PO (12:23)
[2017-06-29] MEDS ORDERED: ULT50X PO (12:23)
[2017-06-29] MEDS ORDERED: PRED10TA PO (12:23)
[2017-06-29] MEDS ORDERED: MELO7.5T6 PO (12:23)
[2017-08-01] MEDS ORDERED: ATRINS INH (13:37)
[2017-08-01] MEDS ORDERED: AMOX1TAB43 PO (13:37)
[2017-08-01] MEDS ORDERED: PXL/40 PO (13:37)
[2017-08-01] MEDS ORDERED: QSTP PO (13:37)
[2017-08-01] MEDS ORDERED: NF1094 PO ×2 (13:37→13:57)
[2017-08-01] MEDS ORDERED: SACC250C3 PO (13:37)
[2017-08-01] MEDS ORDERED: XPNINS INH (13:37)
[2017-08-01] MEDS ORDERED: RBX500 PO (13:37)
== END 2017-02-02 09:52 | disposition home or self-care (01) | DRG 897 ==
LOC: EDBD 08:09 → C.EDA 08:11 → ENRESERV 14:32 → CANRESERV 14:32 → C.MED 14:54 → EDBEDREQSVC 14:55 → EDBEDREQTM 14:56 → ENRESERV 15:53
PROVIDERS: ADMIT Internal Medicine; ATTEND Internal Medicine
DX: F10.229 Alcohol dependence with intoxication, unspecified (principal); Y90.6 Blood alcohol level of 120-199 mg/100 ml; R55 Syncope and collapse; G89.29 Other chronic pain; M54.2 Cervicalgia; J44.9 Chronic obstructive pulmonary disease, unspecified; R00.0 Tachycardia, unspecified; F17.210 Nicotine dependence, cigarettes, uncomplicated; K44.9 Diaphragmatic hernia without obstruction or gangrene; K22.70 Barrett's esophagus without dysplasia; R74.8 Abnormal levels of other serum enzymes; E87.6 Hypokalemia; G47.36 Sleep related hypoventilation in conditions classified elsewhere; Z86.59 Personal history of other mental and behavioral disorders; Z79.51 Long term (current) use of inhaled steroids; Z99.81 Dependence on supplemental oxygen; Z91.5 Personal history of self-harm; Z87.19 Personal history of other diseases of the digestive system; Z79.899 Other long term (current) drug therapy; Z79.891 Long term (current) use of opiate analgesic

== ENCOUNTER 2017-05-29 12:05 | Inpatient (IN) | payer OTHER ==
[~2017-05-29] VITALS: Ht 185.4 cm; Wt 94.6 kg
[~2017-05-29 12:05] MED LIST changes: -ALBUAER19 INH; +ANT25 PO; -ASPI81TA28 PO; +FLV1 PO; -FNTTP50 TD; -METO100T44 PO; +METO1TAB69 PO; +MULT-1042 PO; -OXYC-57 PO; +THM100 PO; -TOPI25TA99 PO; +VNTHFA/IN INH
[2017-05-29] MEDS ORDERED: OXYC-57 PO (12:43)
[2017-05-29] MEDS ORDERED: SODIUM CHLORIDE 0.9% 1000ML 1,000 ML IV STA (13:06)
[2017-05-29] MEDS ORDERED: HYDROmorphone INJ 1 MG/ML SYR IV STA ×2 (13:06→15:25)
[2017-05-29] MEDS ORDERED: ONDANSETRON INJ 2 MG/ML 2 ML VIAL IV STA (13:06)
[2017-05-29] MEDS ORDERED: XYLOCAINE 1%/SOD BICARB 20 ML VIAL INFIL ONE (13:15)
--- NOTE | 2017-05-29 14:18 | DIAGNOSTIC IMAGING REPORT ---
CT OF THE HEAD WITHOUT CONTRAST CLINICAL HISTORY: Syncope. COMPARISON STUDY: Head CT January 31, 2017. CT DOSE: 847.48 mGycm TECHNIQUE: Helical axial images of the head were obtained without IV contrast. Automated exposure control was utilized for the study. A dose lowering technique was utilized adhering to the principles of ALARA. FINDINGS: No acute intracranial hemorrhage, midline shift or mass effect is present. Ventricular system is normal. The basilar cisterns are patent. There are no extra-axial collections. Abreu-white differentiation is maintained. There are no findings to suggest acute dural sinus thrombosis or acute territorial infarct. Mild white matter hypodensities are unchanged and likely reflect small vessel disease. There is no calvarial fracture. Chronic left nasal bone deformity and soft tissue calcifications of the nose are unchanged. IMPRESSION: No acute intracranial findings. Electronically signed by: Bandar Martinez M.D. 05/29/2017 2:17 PM Dictated Date/Time: 05/29/2017 2:14 PM
[2017-05-29 14:28] LABS: BASO % 0.4 %; BASO ABS # 0.03 K/uL (0-0.2); COMPLETE YES; EOS % 0.3 %; HEMATOCRIT 39.8 % (42-52); IG% 0.4 %; LYMPH % 7.7 %; LYMPH ABS # 0.58 K/uL (1.2-3.4); MEAN CELL VOLUME 97.5 fL (80-100); MEAN CORPUSCULAR HEMOGLOBIN 31.9 pg (25-34); MEAN CORPUSCULAR HGB CONC 32.7 g/dl (32-36); MEAN PLATELET VOLUME 8.6 fL (7.4-10.4); MONO % 9.4 %; NEUT % 81.8 %; PLATELET COUNT 289 K/uL (130-400); RED BLOOD COUNT 4.08 M/uL (4.7-6.1); WHITE BLOOD COUNT 7.54 K/uL (4.8-10.8)
[2017-05-29 14:29] LABS: PROTHROMBIN TIME (PATIENT) 10.2 SECONDS (9.0-12.0)
[2017-05-29 14:40] LABS: ALT/SGPT 18 U/L (12-78); AST/SGOT 23 U/L (15-37); BLOOD UREA NITROGEN 14 mg/dl (7-18); BUN/CREATININE RATIO 15.9 (10-20); CALCIUM 8.6 mg/dl (8.5-10.1); CARBON DIOXIDE 25 mmol/L (21-32); CHLORIDE 102 mmol/L (98-107); CREATININE 0.85 mg/dl (0.60-1.40); GLUCOSE 85 mg/dl (70-99); MAGNESIUM 2.1 mg/dl (1.8-2.4); POTASSIUM 3.7 mmol/L (3.5-5.1); SODIUM 139 mmol/L (136-145)
[2017-05-29 14:53] LABS: ALKALINE PHOSPHATASE 91 U/L (45-117); PHOSPHORUS 2.5 mg/dl (2.5-4.9)
--- NOTE | 2017-05-29 15:01 | DIAGNOSTIC IMAGING REPORT ---
R RIBS UNILATERAL WITH PA CHEST HISTORY: 61 years-old Male R RIB INJURY S/P FALL acute right rib pain status post fall COMPARISON: Radiographs 02/01/2017 TECHNIQUE: Frontal view of the chest with 5 views of the right ribs FINDINGS: Cardiac mediastinal and hilar silhouettes are within normal limits. There is atherosclerosis of the aorta. Lungs are hyperinflated with mild background interstitial coarsening chronic. No pneumothorax, pleural effusion or focal airspace consolidation. Subsegmental scarring or atelectasis is again seen involving the lateral right lung base. Acute nondisplaced fractures involve the posterior lateral aspects of the right fifth, sixth, seventh and anterolateral 10th ribs. IMPRESSION: 1. Acute nondisplaced fractures involve the posterior lateral right fifth, sixth and seventh ribs and anterolateral right 10th rib. No pneumothorax. 2. Emphysema. The above report was generated using voice recognition software. It may contain grammatical, syntax or spelling errors. Electronically signed by: Des Olivier M.D. 05/29/2017 2:59 PM Dictated Date/Time: 05/29/2017 2:54 PM
[2017-05-29] MEDS ORDERED: PAROXETINE 20 MG TAB PO ONE (15:30)
[2017-05-29] MEDS ORDERED: OPTIRAY 320 IV PRN (15:45)
--- NOTE | 2017-05-29 16:24 | DIAGNOSTIC IMAGING REPORT ---
CT ANGIOGRAM OF THE CHEST CLINICAL HISTORY: Atypical chest pain. COMPARISON STUDY: Chest x-ray dated 02/01/2017. Chest CT scans dated 02/01/2017 and 03/29/2015. TECHNIQUE: Following the IV administration of 119 cc of Optiray 320, CT angiogram of the chest was performed from the upper abdomen to the thoracic inlet utilizing the pulmonary embolus protocol. Images are reviewed in the axial, sagittal, and coronal planes. 3-D MIPS images are created and assessed. IV contrast was administered without complication. A dose lowering technique was utilized adhering to the principles of ALARA. The examination is degraded by streak artifact from the patient's arms which could not be elevated above the chest. The examination is also degraded by motion artifact. CT DOSE: 871.96 mGy.cm FINDINGS: Thyroid: Imaged portions of the thyroid gland are normal in size and attenuation. Thoracic aorta: There is atherosclerotic calcification of the thoracic aorta, which is normal in caliber and demonstrates standard 3-vessel arch anatomy. No dissection is seen. Pulmonary vasculature: The pulmonary trunk is dilated measuring 3.5 cm in diameter. This suggests pulmonary artery hypertension. There are no filling defects identified in main, lobar, or segmental pulmonary branches to suggest pulmonary embolus. Heart: The heart is normal in size and configuration, and without pericardial effusion. There are coronary artery calcifications. Lungs and pleural spaces: Evaluation of the lung parenchyma is degraded by respiratory motion artifact. Advanced emphysema is noted and there is biapical scarring. Layering secretions are present within the trachea and the right mainstem bronchus. There is trace right pleural effusion. No pleural effusion is seen on the left. There are tree-in-bud airspace opacities identified throughout the right lung, greatest at the right lung base. This is new from 02/01/2017. Minimal nodular airspace opacities are present in the left lower lobe. Mediastinum: There is no mediastinal lymphadenopathy. Sarah: Clear. Axillae: There is no axillary lymphadenopathy. Upper abdomen: There is asymmetric cortical atrophy of the right kidney as compared to the left. A 7.5 cm cyst arises from the upper pole of the left kidney. Additional subcentimeter renal cortical hypodensities also likely represent cysts but are too small for definitive characterization. A 3 cm cyst is seen in the left lobe of the liver. Additional hepatic hypodensities also likely represent cysts but are too small for definitive characterization. A moderate hiatal hernia is identified. Diverticula are noted in the partially imaged left colon. Skeletal structures: The skeletal structures are osteopenic. There are acute to subacute right lateral 6th and 7th rib fractures. Additional healed right-sided rib fractures are similar to previous. There are mild compression deformities of T6, T7, and T8. No lytic or blastic bony lesions are seen. IMPRESSION: 1. Streak and motion degraded examination. 2. There is no evidence of pulmonary embolus in the main, lobar, or segmental pulmonary arteries. 3. Advanced emphysema. 4. There are foci of tree-in-bud opacification seen throughout the right lung, greatest at the right lung base. Minimal similar opacities are seen at the left lung base. Layering secretions are present within the trachea and right mainstem bronchus and this suggests pneumonia/aspiration pneumonitis. Clinical correlation will be required. Follow-up CT scan in 3-4 months is recommended to document resolution. 5. Moderate hiatal hernia. 6. There are acute to subacute right lateral 6th and 7th rib fractures. 7. Additional findings as above. Electronically signed by: Orlando Caldwell M.D. 05/29/2017 4:23 PM Dictated Date/Time: 05/29/2017 4:11 PM
[2017-05-29 16:37] LABS: URINE APPEARANCE CLEAR (CLEAR); URINE BILIRUBIN NEG (NEG); URINE COLOR YELLOW; URINE EPITHELIAL CELL AUTO 0-5 /lpf (0-5); URINE NITRITE NEG (NEG); URINE PH 5.5 (4.5-7.5); URINE SPECIFIC GRAVITY 1.039 (1.000-1.030); UROBILINOGEN NEG (NEG); ZZUR CULT IF INDIC CLEAN CATCH NO
[2017-05-29 16:45] LABS: MANUAL MICROSCOPIC REQUIRED? NO; REVIEW REQ? NO
[2017-05-29 17:07] LABS: BENZODIAZEPINE, URINE NEG (NEG); COCAINE,URINE NEG (NEG); PHENCYCLIDINE, URINE NEG (NEG)
[2017-05-29] MEDS ORDERED: PARO1TAB27 PO (18:19)
--- NOTE | 2017-05-29 18:19 | History and Physical ---
History & Physical Date & Time of Service: May 29, 2017 at 18:19 . Chief Complaint: passed out, right chest pain . Primary Care Physician: Zach Monroy M.D. . History of Present Illness Source: patient, clinic records, hospital records 61 [address]O male followed by Dr. Monroy for Family Medicine. History of hypertension, COPD, and other problems noted below. Admitted in 2013 with chest pain. OK ruled out. Nuclear stress test showed possible stress-induced ischemia. Cardiac cath demonstrated normal coronaries. Last hospitalized in February after syncopal episode. Echo did not show any hemodynamically significant valvular disease. CTA chest negative for pulmonary embolism. COPD is severe, requiring nocturnal O2. Has been without O2 for about 2 months due to equipment issues. Has been experiencing chest pressure, dyspnea, palpitations, and lightheadedness with ambulation. Symptoms occur after walking about 100 yards or walking up 1/2 flight of stairs. Last night he wasn't able to sleep, so went outside for a walk. Developed CP, SOB, palpitations, and lightheadedness, followed by syncope. He fell and struck his right chest and right arm. He was unconscious; duration uncertain. Experiencing severe right-sided chest pain, worse with movement, coughing, deep breaths. Tried taking Percocet without much benefit. Came to ED today for evaluation. . Past Medical/Surgical History Chronic and Resolved Medical Problems: (1) Basal cell carcinoma Status: Chronic (2) Chronic neck pain Status: Chronic (3) COPD (chronic obstructive pulmonary disease) Status: Chronic (4) Depression Status: Chronic (5) History of adenomatous polyp of colon Status: Chronic (6) History of Hart's esophagus Status: Chronic (7) History of basal cell carcinoma Status: Chronic (8) History of Meckel's diverticulum Status: Chronic (9) History of suicide attempt Status: Chronic (10) HTN (hypertension) Status: Chronic Surgical Problems: (1) H/O hernia repair Status: Chronic (2) History of appendectomy Status: Chronic (3) History of colon resection Permanent Comment: for Meckel's Diverticulum repair Status: Chronic (4) Hx of cardiac cath Permanent Comment: 03/2014 - normal Status: Chronic (5) 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 Family History FH: CAD (coronary artery disease) FATHER TIAs FATHER Social History Smoking Status: Current Every Day Smoker Alcohol Use: socially Drug Use: none Marital Status: single Occupational Status: disabled Immunizations History of Influenza Vaccine: Yes Influenza Vaccine Date: Jun 30, 2015 History of Tetanus Vaccine?: Yes Tetanus Immunization Date: Mar 26, 2014 History of Pneumococcal: Yes Pneumococcal Date: Apr 07, 2014 Allergies Coded Allergies: Onion (Verified Allergy, Unknown, RASH AND GI UPSET, 05/29/17) Shellfish (Verified Adverse Reaction, Severe, ANAPHYLAXIS, 05/29/17) Captopril (Verified Adverse Reaction, Intermediate, "felt bad", 05/29/17) Codeine (Verified Adverse Reaction, Unknown, nausea; nightmares, 05/29/17) Home Medications Scheduled Ascorbic Acid (Vitamin C), 1,000 MG PO QAM Budesonide/Formoterol Fumarate (Symbicort 160/4.5 Inhaler ), 2 PUFFS INH BID Home O2 Therapy (Oxygen), 3 LITERS NA HS Hydrochlorothiazide (Hctz), 25 MG PO QAM Metoprolol Succ (Toprol Xl) (Toprol-Xl ), 100 MG PO QAM Multiple Vitamins W/ Minerals (Multi Vitamin and Mineral), 1 TABS PO DAILY Pantoprazole (Protonix), 40 MG PO QAM Paroxetine (Paxil), 20 MG PO DAILY Thiamine HCl (Vitamin B-1), 100 MG PO QAM Scheduled PRN Albuterol Hfa (Ventolin Hfa), 2 PUFFS INH QID PRN for Shortness of Breath Oxycodone/Acetaminophen 5MG/325MG (Percocet 5MG/325MG), 1 TABS PO Q6H PRN for Pain Zolpidem Tartrate (Ambien), 10 MG PO HS PRN for Sleep Review of Systems Constitutional: No fever, No weight loss Eyes: No worsening of vision, No diplopia ENT: No nasal symptoms, No sore throat Respiratory: + cough (yellow sputum), + shortness of breath Cardiovascular: + chest pain, + edema (ankle), + palpitations Abdomen: + diarrhea (2 wks ago, resolved), No pain, No nausea, No vomiting, No GI bleeding Musculoskeletal: + joint pain (chronic neck pain) Genitourinary - Male: + urinary hesitancy, No hematuria, No dysuria Neurologic: + problem reported (intermittent headaches) Endocrine: + fatigue, No excessive thirst, No excessive urination Hematologic / Lymphatic: + abnormal bleeding/bruising, No swollen lymph nodes Integumentary: + new/changing skin lesions (followed by Derm), No rash Physical Exam Vital Signs Date Time Temp Pulse Resp B/P (MAP) Pulse Ox O2 Delivery O2 Flow Rate FiO2 05/29/17 18:07 91 20 170/113 93 Room Air 05/29/17 15:44 88 22 175/117 93 Room Air 05/29/17 13:48 84 20 173/105 93 Room Air 05/29/17 13:47 72 05/29/17 13:21 94 Room Air 05/29/17 13:21 93 Room Air 05/29/17 12:08 36.7 71 22 167/85 95 Room Air General Appearance: WD/WN, + moderate distress Head: normocephalic, atraumatic Eyes: normal inspection, PERRL, EOMI, sclerae normal (conjunctivae pink) ENT: hearing grossly normal, pharynx normal Neck: supple, no adenopathy, thyroid normal, no JVD, trachea midline Respiratory/Chest: no respiratory distress, no accessory muscle use, + rhonchi (scattered), + wheezing (diffuse moderate), + pertinent finding (right chest- wall tenderness) Cardiovascular: regular rate, rhythm, no edema, no gallop, no JVD, + systolic murmur (II/ sys murmur base) Abdomen/GI: normal bowel sounds, non tender, soft, no organomegaly, no pulsatile mass Extremities/Musculoskelatal: normal inspection, no calf tenderness, no pedal edema, + pertinent finding (right forearm bandaged) 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 (PERRL, EOMI, no facial palsy, no dyarthria), no motor/sensory deficits (motor strength upper and lower extremities grossly intact), alert, normal mood/affect, oriented x 3 Skin: normal color, warm/dry, no rash Lymphatic: no adenopathy (cervical) Diagnostics Laboratory Results Results Past 24 Hours Test 05/29/17 13:06 05/29/17 16:19 Range/Units White Blood Count 7.54 4.8-10.8 K/uL Red Blood Count 4.08 4.7-6.1 M/uL Hemoglobin 13.0 14.0-18.0 g/dL Hematocrit 39.8 42-52 % Mean Corpuscular Volume 97.5 80-100 fL Mean Corpuscular Hemoglobin 31.9 25-34 pg Mean Corpuscular Hemoglobin Concent 32.7 32-36 g/dl Platelet Count 289 130-400 K/uL Mean Platelet Volume 8.6 7.4-10.4 fL Neutrophils (%) (Auto) 81.8 % Lymphocytes (%) (Auto) 7.7 % Monocytes (%) (Auto) 9.4 % Eosinophils (%) (Auto) 0.3 % Basophils (%) (Auto) 0.4 % Neutrophils # (Auto) 6.17 1.4-6.5 K/uL Lymphocytes # (Auto) 0.58 1.2-3.4 K/uL Monocytes # (Auto) 0.71 0.11-0.59 K/uL Eosinophils # (Auto) 0.02 0-0.5 K/uL Basophils # (Auto) 0.03 0-0.2 K/uL RDW Standard Deviation 58.4 36.4-46.3 fL RDW Coefficient of Variation 16.5 11.5-14.5 % Immature Granulocyte % (Auto) 0.4 % Immature Granulocyte # (Auto) 0.03 0.00-0.02 K/uL Prothrombin Time 10.2 9.0-12.0 SECONDS Prothromb Time International Ratio 1.0 0.9-1.1 D-Dimer 600 0-500 ug/L FEU Sodium Level 139 136-145 mmol/L Potassium Level 3.7 3.5-5.1 mmol/L Chloride Level 102 98-107 mmol/L Carbon Dioxide Level 25 21-32 mmol/L Anion Gap 12.0 3-11 mmol/L Blood Urea Nitrogen 14 7-18 mg/dl Creatinine 0.85 0.60-1.40 mg/dl Est Creatinine Clear Calc Drug Dose 100.5 ml/min Estimated GFR () 107.5 Estimated GFR (Non- 92.7 BUN/Creatinine Ratio 15.9 10-20 Random Glucose 85 70-99 mg/dl Calcium Level 8.6 8.5-10.1 mg/dl Phosphorus Level 2.5 2.5-4.9 mg/dl Magnesium Level 2.1 1.8-2.4 mg/dl Total Bilirubin 0.8 0.2-1 mg/dl Direct Bilirubin 0.2 0-0.2 mg/dl Aspartate Amino Transf (AST/SGOT) 23 15-37 U/L Alanine Aminotransferase (ALT/SGPT) 18 12-78 U/L Alkaline Phosphatase 91 45-117 U/L Total Creatine Kinase 239 39-308 U/L Troponin I < 0.015 0-0.045 ng/ml Pro-B-Type Natriuretic Peptide 1324 0-900 pg/ml Total Protein 7.4 6.4-8.2 gm/dl Albumin 3.4 3.4-5.0 gm/dl Thyroid Stimulating Hormone (TSH) 1.260 0.300-4.500 uIu/ml Ethyl Alcohol mg/dL < 3.0 0-3 mg/dl Urine Color YELLOW Urine Appearance CLEAR CLEAR Urine pH 5.5 4.5-7.5 Urine Specific [place] 1.039 1.000-1.030 Urine Protein NEG NEG Urine Glucose (UA) NEG NEG Urine Ketones 1+ NEG Urine Occult Blood TRACE NEG Urine Nitrite NEG NEG Urine Bilirubin NEG NEG Urine Urobilinogen NEG NEG Urine Leukocyte Esterase NEG NEG Urine WBC (Auto) 0 0-5 /hpf Urine RBC (Auto) 0-4 0-4 /hpf Urine Hyaline Casts (Auto) 0 0-5 /lpf Urine Epithelial Cells (Auto) 0-5 0-5 /lpf Urine Bacteria (Auto) NEG NEG Urine Opiates Screen POS NEG Urine Methadone, Qualitative NEG NEG Urine Barbiturates NEG NEG Urine Phencyclidine (PCP) Level NEG NEG Ur Amphetamine/Methamphetamine NEG NEG MDMA (Ecstasy) Screen NEG NEG Urine Benzodiazepines Screen NEG NEG Urine Cocaine Metabolite NEG NEG Urine Marijuana (THC) POS NEG Diagnostic Radiology R RIBS UNILATERAL WITH PA CHEST FINDINGS: Cardiac mediastinal and hilar silhouettes are within normal limits. There is atherosclerosis of the aorta. Lungs are hyperinflated with mild background interstitial coarsening chronic. No pneumothorax, pleural effusion or focal airspace consolidation. Subsegmental scarring or atelectasis is again seen involving the lateral right lung base. Acute nondisplaced fractures involve the posterior lateral aspects of the right fifth, sixth, seventh and anterolateral 10th ribs. IMPRESSION: 1. Acute nondisplaced fractures involve the posterior lateral right fifth, sixth and seventh ribs and anterolateral right 10th rib. No pneumothorax. 2. Emphysema. The above report was generated using voice recognition software. It may contain grammatical, syntax or spelling errors. Electronically signed by: Des Olivier M.D. 05/29/2017 2:59 PM Dictated Date/Time: 05/29/2017 2:[address] OF THE HEAD WITHOUT CONTRAST FINDINGS: No acute intracranial hemorrhage, midline shift or mass effect is present. Ventricular system is normal. The basilar cisterns are patent. There are no extra-axial collections. Abreu-white differentiation is maintained. There are no findings to suggest acute dural sinus thrombosis or acute territorial infarct. Mild white matter hypodensities are unchanged and likely reflect small vessel disease. There is no calvarial fracture. Chronic left nasal bone deformity and soft tissue calcifications of the nose are unchanged. IMPRESSION: No acute intracranial findings. Electronically signed by: Bandar Martinez M.D. 05/29/2017 2:17 PM Dictated Date/Time: 05/29/2017 2:[address] ANGIOGRAM OF THE CHEST FINDINGS: Thyroid: Imaged portions of the thyroid gland are normal in size and attenuation. Thoracic aorta: There is atherosclerotic calcification of the thoracic aorta, which is normal in caliber and demonstrates standard 3-vessel arch anatomy. No dissection is seen. Pulmonary vasculature: The pulmonary trunk is dilated measuring 3.5 cm in diameter. This suggests pulmonary artery hypertension. There are no filling defects identified in main, lobar, or segmental pulmonary branches to suggest pulmonary embolus. Heart: The heart is normal in size and configuration, and without pericardial effusion. There are coronary artery calcifications. Lungs and pleural spaces: Evaluation of the lung parenchyma is degraded by respiratory motion artifact. Advanced emphysema is noted and there is biapical scarring. Layering secretions are present within the trachea and the right mainstem bronchus. There is trace right pleural effusion. No pleural effusion is seen on the left. There are tree-in-bud airspace opacities identified throughout the right lung, greatest at the right lung base. This is new from 02/01/2017. Minimal nodular airspace opacities are present in the left lower lobe. Mediastinum: There is no mediastinal lymphadenopathy. Sarah: Clear. Axillae: There is no axillary lymphadenopathy. Upper abdomen: There is asymmetric cortical atrophy of the right kidney as compared to the left. A 7.5 cm cyst arises from the upper pole of the left kidney. Additional subcentimeter renal cortical hypodensities also likely represent cysts but are too small for definitive characterization. A 3 cm cyst is seen in the left lobe of the liver. Additional hepatic hypodensities also likely represent cysts but are too small for definitive characterization. A moderate hiatal hernia is identified. Diverticula are noted in the partially imaged left colon. Skeletal structures: The skeletal structures are osteopenic. There are acute to subacute right lateral 6th and 7th rib fractures. Additional healed right-sided rib fractures are similar to previous. There are mild compression deformities of T6, T7, and T8. No lytic or blastic bony lesions are seen. IMPRESSION: 1. Streak and motion degraded examination. 2. There is no evidence of pulmonary embolus in the main, lobar, or segmental pulmonary arteries. 3. Advanced emphysema. 4. There are foci of tree-in-bud opacification seen throughout the right lung, greatest at the right lung base. Minimal similar opacities are seen at the left lung base. Layering secretions are present within the trachea and right mainstem bronchus and this suggests pneumonia/aspiration pneumonitis. Clinical correlation will be required. Follow-up CT scan in 3-4 months is recommended to document resolution. 5. Moderate hiatal hernia. 6. There are acute to subacute right lateral 6th and 7th rib fractures. 7. Additional findings as above. Electronically signed by: Orlando Caldwell M.D. 05/29/2017 4:23 PM Dictated Date/Time: 05/29/2017 4:11 PM . Impression Assessment and Plan SYNCOPE Preceded by exertional dyspnea, chest pain, palpitations, lightheadedness. Echo February 2017 showed moderate aortic valve sclerosis without stenosis. Monitor for arrhythmias. Check orthostatic vital signs. EXERTIONAL CHEST PAIN Exertional chest pain associated with dyspnea. Cardiac cath OK in 2013. Doubt acute coronary syndrome. Check cardiac markers. Consider repeat stress testing if ongoing concerns. PALPITATIONS Associated with exertion. Monitor for arrhythmias. RIB FRACTURES Severe right-sided chest wall pain. Multiple rib fractures (right 6th and 7th per CT, right 5th, 6th, 7th, 10th per plain films). No pneumothorax. Incentive spirometry. Analgesics PRN. LACERATION RIGHT FOREARM 4 cm laceration right forearm. Tetanus booster up to date. Repaired in ED. Daily dressing changes. Sutures to be removed in 10 days. POSSIBLE PNEUMONIA Cough productive of yellow sputum. No infiltrates on chest x-ray, but CT demonstrates bibasilar opacities as well as layering secretions within trachea and mainstem bronchi suggesting aspiration. Check sputum gram stain, C&S. Rx with levofloxacin + piperacillin / tazobactam. F/U CT recommended. COPD Severe COPD. Nocturnal O2 prescribed, but not used for about 2 months due to equipment issues. Experiencing severe dyspnea on exertion. Possible pneumonia as discussed above. Continue Symbicort. Add levalbuterol / ipratropium nebs. Supplemental O2 as needed. Check 2-step O2 sats before discharge. SMOKING Continues to smoke. Smoking cessation counseling. HYPERTENSION Hold HCTZ due to orthostatic lightheadedness and syncope. Continue metoprolol. Follow and titrate Rx. HART'S ESOPHAGUS Continue pantoprazole. CHRONIC CERVICAL PAIN Continue analgesics PRN. DEPRESSION Continue paroxetine. HISTORY OF ALCOHOL USE Heavy drinking at times in the past, but not recently. Pt states that last drink was about 2 wks ago. Monitor for possible alcohol withdrawal. Continue thiamine. POOR FUNCTIONAL STATUS PT / OT evals. VTE PROPHYLAXIS Moderate risk for VTE. SQ heparin. Ambulate as able. DISPOSITION Admit to Telemetry Unit. Discharge disposition to be determined; may need skilled care or rehab. Consult Case Management. Family Medicine follow-up with Dr. Monroy. . VTE Prophylaxis Given or contraindicated: Unfractionated heparin SQ
[2017-05-29] MEDS ORDERED: BENZONATATE 100MG CAP PO PRN (18:30)
[2017-05-29] MEDS ORDERED: LEVAQUIN 750MG / 150ML D5W IV ONE (18:30)
[2017-05-29] MEDS ORDERED: GUAIFENESIN SUGAR FREE 100 MG/5 ML UDC PO PRN (18:30)
[2017-05-29] MEDS ORDERED: METOPROLOL TARTRATE 1 MG/ML VIAL IV PRN (18:30)
[2017-05-29] MEDS ORDERED: NITROGLYCERIN 0.4 MG SL PER TAB CHARGE SL PRN (18:30)
[2017-05-29] MEDS ORDERED: LEVAQUIN 750MG / 150ML D5W ONE (18:35)
[2017-05-29] MEDS ORDERED: OXYCODONE/ACETAMINOPHEN 5-325 TAB ONE (18:44)
[2017-05-29] MEDS ORDERED: HYDROmorphone INJ 2 MG/ML SYR/VIAL ONE (18:44)
[2017-05-29 19:21] VITALS: Ht 185.4 cm; Wt 94.6 kg
--- NOTE | 2017-05-29 19:54 | EMERGENCY ROOM VISIT NOTE ---
History First contact with patient: 12:51 Chief Complaint: FALL Stated Complaint: DIZZY SPELLS, BROKEN RIBS, PUNCTURE WOUND History of Present Illness The patient is a 61 year old male who presents to the Emergency Room with primary complaint of severe right rib pain after the patient had a syncopal episode and fell onto his gas grill last evening. The patient reports that he has had a prior history of syncope that he attributes to his COPD and hypertension. The patient does occasionally wear oxygen at home. He also uses inhalers for COPD. He feels that his chest tightness, discomfort and shortness of breath has been worsening over the past several weeks. The patient reports that he had a similar episode in January that required admission to the hospital. He does see a screed operator who does not feel that his symptoms are related to a heart disease. The patient does not remember the fall. He currently reports a mild headache. He denies neck or back pain, except for pain around his ribs. The patient reports that his rib pain is a 10 out of 10, and is requesting medication for his pain. He does take Percocet for chronic neck pain. The patient denies any lower extremity injuries. He reports a laceration to his right forearm, an abrasion to the left arm. He is able to move the extremities without significant discomfort. Tetanus immunization is up-to-date. Review of Systems HEENT: Denies visual problems, hearing loss, tinnitus. Denies difficulty swallowing or oral lesions. PULMONARY: See history of present illness for history of COPD symptoms. CARDIOVASCULAR: Reports chest pain, but denies palpitations, dyspnea on exertion , orthopnea or peripheral edema. GASTROINTESTINAL: Denies diarrhea, constipation, nausea, vomiting, or abdominal pain. GENITOURINARY: Denies dysuria, frequency, urgency or nocturia. NEUROLOGIC: Denies history of epilepsy, CVA, TIA or chronic headaches. MUSCULOSKELETAL: Denies history of joint tenderness/swelling. SKIN: Denies rashes or lesions. PSYCHIATRIC: history of depression. ENDOCRINE: Denies history of diabetes or thyroid disorders. Past Medical/Surgical History Medical Problems: (1) Basal cell carcinoma (2) Chronic neck pain (3) COPD (chronic obstructive pulmonary disease) (4) Depression (5) Gastritis (6) History of Meckel's diverticulum (7) HTN (hypertension) (8) Suicide attempt (9) Syncope Surgical Problems: (1) H/O hernia repair (2) History of appendectomy (3) History of colon resection (4) Hx of cardiac cath (5) 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 Social History Problems: (1) Alcohol abuse Family History FH: CAD (coronary artery disease) FATHER TIAs FATHER Social History Smoking Status: Current Every Day Smoker Alcohol Use: occasionally Drug Use: none Marital Status: single Housing Status: lives alone Occupation Status: disabled Current/Historical Medications Scheduled Ascorbic Acid (Vitamin C), 1,000 MG PO QAM Budesonide/Formoterol Fumarate (Symbicort 160/4.5 Inhaler ), 2 PUFFS INH BID Home O2 Therapy (Oxygen), 3 LITERS NA HS Hydrochlorothiazide (Hctz), 25 MG PO QAM Metoprolol Succ (Toprol Xl) (Toprol-Xl ), 100 MG PO QAM Multiple Vitamins W/ Minerals (Multi Vitamin and Mineral), 1 TABS PO DAILY Pantoprazole (Protonix), 40 MG PO QAM Paroxetine (Paxil), 20 MG PO DAILY Thiamine HCl (Vitamin B-1), 100 MG PO QAM Scheduled PRN Albuterol Hfa (Ventolin Hfa), 2 PUFFS INH QID PRN for Shortness of Breath Oxycodone/Acetaminophen 5MG/325MG (Percocet 5MG/325MG), 1 TABS PO Q6H PRN for Pain Zolpidem Tartrate (Ambien), 10 MG PO HS PRN for Sleep Physical Exam Vital Signs Date Time Temp Pulse Resp B/P (MAP) Pulse Ox O2 Delivery O2 Flow Rate FiO2 05/29/17 18:07 91 20 170/113 93 Room Air 05/29/17 15:44 88 22 175/117 93 Room Air 05/29/17 13:48 84 20 173/105 93 Room Air 05/29/17 13:47 72 05/29/17 13:21 94 Room Air 05/29/17 13:21 93 Room Air 05/29/17 12:08 36.7 71 22 167/85 95 Room Air Physical Exam CONSTITUTIONAL: Healthy and well nourished. Alert and oriented X 3 with positive affect. Patient appears in moderate discomfort from pain. GCS 15. HEENT: Normocephalic, atraumatic. Pupils equal, round and reactive. No facial abrasions, soft tissue edema, facial bone tenderness to palpation, epistaxis, hemotympanum, subconjunctival hemorrhage, raccoon's eyes or Blake sign. NECK: Full active range of motion without discomfort. RESPIRATORY: Clear to auscultation bilaterally with no wheezing, crackles, rhonchi or stridor. Deep breathing worsens the patient's right lateral rib discomfort. CARDIOVASCULAR: Regular rate and rhythm with no murmurs, rubs or gallops. GASTROINTESTINAL: Bowel sounds present in all quadrants. Soft and nontender to palpation. MUSCULOSKELETAL: Examination shows tenderness to palpation and erythema over the right lateral ribs. The ribs are tender to palpation. No subcutaneous emphysema or flail chest noted. The patient otherwise has full range of motion of the shoulders without discomfort. He has a 4 cm laceration on the posterior right forearm without active bleeding. Pronation and supination does not cause any discomfort. He has a small abrasion on the left forearm, again with full range of motion without discomfort. No focal tenderness to palpation through the central thoracolumbar spine or costochondral joints. INTEGUMENTARY: No rash or other significant dermatologic conditions noted. NEUROLOGIC: No focal neurologic deficits noted. Medical Decision & Procedures ER Provider Diagnostic Interpretation: My interpretation of an ECG shows a normal sinus rhythm of [address] elevations, ischemic changes or other significant conduction abnormalities. Right rib x-rays with a PA chest shows several rib fractures without evidence for pneumothorax. Radiologist report is as follows: R RIBS UNILATERAL WITH PA CHEST HISTORY: 61 years-old Male R RIB INJURY S/P FALL acute right rib pain status post fall COMPARISON: Radiographs 02/01/2017 TECHNIQUE: Frontal view of the chest with 5 views of the right ribs FINDINGS: Cardiac mediastinal and hilar silhouettes are within normal limits. There is atherosclerosis of the aorta. Lungs are hyperinflated with mild background interstitial coarsening chronic. No pneumothorax, pleural effusion or focal airspace consolidation. Subsegmental scarring or atelectasis is again seen involving the lateral right lung base. Acute nondisplaced fractures involve the posterior lateral aspects of the right fifth, sixth, seventh and anterolateral 10th ribs. IMPRESSION: 1. Acute nondisplaced fractures involve the posterior lateral right fifth, sixth and seventh ribs and anterolateral right 10th rib. No pneumothorax. 2. Emphysema. Noncontrast CT of the head does not show any intracranial bleed, mass effect or midline shift. Radiologist report is as follows: CT OF THE HEAD WITHOUT CONTRAST CLINICAL HISTORY: Syncope. COMPARISON STUDY: Head CT January 31, 2017. CT DOSE: 847.48 mGycm TECHNIQUE: Helical axial images of the head were obtained without IV contrast. Automated exposure control was utilized for the study. A dose lowering technique was utilized adhering to the principles of ALARA. FINDINGS: No acute intracranial hemorrhage, midline shift or mass effect is present. Ventricular system is normal. The basilar cisterns are patent. There are no extra-axial collections. Abreu-white differentiation is maintained. There are no findings to suggest acute dural sinus thrombosis or acute territorial infarct. Mild white matter hypodensities are unchanged and likely reflect small vessel disease. There is no calvarial fracture. Chronic left nasal bone deformity and soft tissue calcifications of the nose are unchanged. IMPRESSION: No acute intracranial findings. Chest CT angiography does not show any evidence for pulmonary emboli. There is a question of possible pneumonia versus aspiration pneumonitis. Radiologist report is as follows: IMPRESSION: 1. Streak and motion degraded examination. 2. There is no evidence of pulmonary embolus in the main, lobar, or segmental pulmonary arteries. 3. Advanced emphysema. 4. There are foci of tree-in-bud opacification seen throughout the right lung, greatest at the right lung base. Minimal similar opacities are seen at the left lung base. Layering secretions are present within the trachea and right mainstem bronchus and this suggests pneumonia/aspiration pneumonitis. Clinical correlation will be required. Follow-up CT scan in 3-4 months is recommended to document resolution. 5. Moderate hiatal hernia. 6. There are acute to subacute right lateral 6th and 7th rib fractures. 7. Additional findings as above. Laboratory Results 05/29/17 13:06 Red Blood Count 4.08, Mean Corpuscular Volume 97.5, Mean Corpuscular Hemoglobin 31.9, Mean Corpuscular Hemoglobin Concent 32.7, Mean Platelet Volume 8.6, Neutrophils (%) (Auto) 81.8, Lymphocytes (%) (Auto) 7.7, Monocytes (%) (Auto) 9.4, Eosinophils (%) (Auto) 0.3, Basophils (%) (Auto) 0.4, Neutrophils # (Auto) 6.17, Lymphocytes # (Auto) 0.58, Monocytes # (Auto) 0.71, Eosinophils # (Auto) 0.02, Basophils # (Auto) 0.03 05/29/17 13:06 Test 05/29/17 13:06 05/29/17 16:19 White Blood Count 7.54 K/uL (4.8-10.8) Red Blood Count 4.08 M/uL (4.7-6.1) Hemoglobin 13.0 g/dL (14.0-18.0) Hematocrit 39.8 % (42-52) Mean Corpuscular Volume 97.5 fL (80-100) Mean Corpuscular Hemoglobin 31.9 pg (25-34) Mean Corpuscular Hemoglobin Concent 32.7 g/dl (32-36) Platelet Count 289 K/uL (130-400) Mean Platelet Volume 8.6 fL (7.4-10.4) Neutrophils (%) (Auto) 81.8 % Lymphocytes (%) (Auto) 7.7 % Monocytes (%) (Auto) 9.4 % Eosinophils (%) (Auto) 0.3 % Basophils (%) (Auto) 0.4 % Neutrophils # (Auto) 6.17 K/uL (1.4-6.5) Lymphocytes # (Auto) 0.58 K/uL (1.2-3.4) Monocytes # (Auto) 0.71 K/uL (0.11-0.59) Eosinophils # (Auto) 0.02 K/uL (0-0.5) Basophils # (Auto) 0.03 K/uL (0-0.2) RDW Standard Deviation 58.4 fL (36.4-46.3) RDW Coefficient of Variation 16.5 % (11.5-14.5) Immature Granulocyte % (Auto) 0.4 % Immature Granulocyte # (Auto) 0.03 K/uL (0.00-0.02) Prothrombin Time 10.2 SECONDS (9.0-12.0) Prothromb Time International Ratio 1.0 (0.9-1.1) D-Dimer 600 ug/L FEU (0-500) Anion Gap 12.0 mmol/L (3-11) Est Creatinine Clear Calc Drug Dose 100.5 ml/min Estimated GFR () 107.5 Estimated GFR (Non- 92.7 BUN/Creatinine Ratio 15.9 (10-20) Calcium Level 8.6 mg/dl (8.5-10.1) Phosphorus Level 2.5 mg/dl (2.5-4.9) Magnesium Level 2.1 mg/dl (1.8-2.4) Total Bilirubin 0.8 mg/dl (0.2-1) Direct Bilirubin 0.2 mg/dl (0-0.2) Aspartate Amino Transf (AST/SGOT) 23 U/L (15-37) Alanine Aminotransferase (ALT/SGPT) 18 U/L (12-78) Alkaline Phosphatase 91 U/L (45-117) Total Creatine Kinase 239 U/L (39-308) Troponin I < 0.015 ng/ml (0-0.045) Pro-B-Type Natriuretic Peptide 1324 pg/ml (0-900) Total Protein 7.4 gm/dl (6.4-8.2) Albumin 3.4 gm/dl (3.4-5.0) Thyroid Stimulating Hormone (TSH) 1.260 uIu/ml (0.300-4.500) Ethyl Alcohol mg/dL < 3.0 mg/dl (0-3) Urine Color YELLOW Urine Appearance CLEAR (CLEAR) Urine pH 5.5 (4.5-7.5) Urine Specific [place] 1.039 (1.000-1.030) Urine Protein NEG (NEG) Urine Glucose (UA) NEG (NEG) Urine Ketones 1+ (NEG) Urine Occult Blood TRACE (NEG) Urine Nitrite NEG (NEG) Urine Bilirubin NEG (NEG) Urine Urobilinogen NEG (NEG) Urine Leukocyte Esterase NEG (NEG) Urine WBC (Auto) 0 /hpf (0-5) Urine RBC (Auto) 0-4 /hpf (0-4) Urine Hyaline Casts (Auto) 0 /lpf (0-5) Urine Epithelial Cells (Auto) 0-5 /lpf (0-5) Urine Bacteria (Auto) NEG (NEG) Urine Opiates Screen POS (NEG) Urine Methadone, Qualitative NEG (NEG) Urine Barbiturates NEG (NEG) Urine Phencyclidine (PCP) Level NEG (NEG) Ur Amphetamine/Methamphetamine NEG (NEG) MDMA (Ecstasy) Screen NEG (NEG) Urine Benzodiazepines Screen NEG (NEG) Urine Cocaine Metabolite NEG (NEG) Urine Marijuana (THC) POS (NEG) The above labs were reviewed. D-dimer and BNP are elevated. Urine drug screen is positive for opiates and marijuana. Remaining labs are otherwise grossly normal. Medications Administered Medications (Trade) Dose Ordered Sig/Tyree Route Start Time Stop Time Status Last Admin Dose Admin Ondansetron HCl (Zofran Inj) 4 mg NOW STAT IV 05/29/17 13:06 05/29/17 13:12 DC 05/29/17 13:44 4 MG Sodium Chloride 1,000 ml @ 999 mls/hr Q1H1M STAT IV 05/29/17 13:06 05/29/17 14:06 DC 05/29/17 13:43 999 MLS/HR Hydromorphone HCl (Dilaudid Inj) 1 mg NOW STAT IV 05/29/17 13:06 05/29/17 13:12 DC 05/29/17 13:44 1 MG Lidocaine HCl (Buffered Lidocaine 1% Inj) 20 ml ONE ONCE INFIL 05/29/17 13:15 05/29/17 13:16 DC 05/29/17 13:43 20 ML Hydromorphone HCl (Dilaudid Inj) 1 mg NOW STAT IV 05/29/17 15:25 05/29/17 15:28 DC 05/29/17 15:39 1 MG Paroxetine HCl (pAXil TAB) 20 mg NOW ONCE PO 05/29/17 15:30 05/29/17 15:31 DC 05/29/17 15:39 20 MG Procedure 1. IV hydration: The patient was hydrated with a liter normal saline 2. IV medications: The patient was initially administered Dilaudid 1 mg and Zofran 4 mg IVP PROCEDURE NOTE: Right forearm laceration repair was performed under local anesthesia after receiving verbal consent from the patient. Using buffered 1% lidocaine without epinephrine, good local anesthesia was administered. The peripheral tissue was enclosed with iodine, then the wound was copiously pressure irrigated with normal saline. The wound was then approximated using 4- 0 nylon simple interrupted sutures 4. A bacitracin dressing was applied. ED Course Patient history and physical exam were performed. Nurse's notes were reviewed. I also reviewed a portion of prior medical records, showing that the patient was admitted to our hospital in January 2017 with a similar presentation. The patient was diagnosed with syncope likely secondary to alcohol intoxication. Vital signs were reviewed, showing a blood pressure of 167/85. O2 saturation is 95% on room air. The patient is not a tachycardic. IV access was established and labs were drawn. The patient was hydrated normal saline, and received IV medications as discussed in the previous Procedure section. An ECG was performed and normal. Right rib x-rays with the PA chest shows multiple rib fractures. Noncontrast CT of the head was normal. Review of labs shows an elevated d-dimer and BNP. Troponin was normal. Chest CT angiography does not show any evidence for pulmonary emboli. There is a questionable pneumonia versus aspiration pneumonitis. On reassessment, the patient was still having significant right-sided rib discomfort. He was administered a second dose of Dilaudid 1 mg IVP. Laceration repair was performed under local anesthesia. The case was also discussed with Dr. Sandoval, ED attending physician, who suggested hospice consultation given multiple rib fractures, and ongoing weakness/syncopal episodes. The patient also reports that he does not feel safe at home. The case was then discussed further with Dr. Boyd, [facility] hospitalist. Please see his dictation for further treatment and final disposition. Dr. Boyd recommended Levaquin IV antibiotics until further workup can be completed. Medical Decision Patient presents to the emergency department for evaluation of injuries after he had a syncopal episode last night. The patient has had history of syncope without any definitive follow-up. The patient has suffered multiple right- sided rib fracture from last night's fall. The patient has a prior history of alcohol intoxication, however his alcohol level is undetectable today. He is drug screen positive for opiates, which she does take Percocet at home, along with marijuana. Cardiac dysrhythmia was also entertained. His cardiac catheterization technician while in the emergency department showed no acute events. ECG and troponin were also normal. He does have elevated d-dimer and BMP results of unknown significance, and will need further cardiac workup. [place] Drug Monitoring Program Search Results: patient reviewed within database, no issues identified Medication Reconcilliation Current Medication List: was personally reviewed by me Blood Pressure Screening Patient's blood pressure: Normal blood pressure Impression Primary Impression: Multiple fractures of ribs, right side, initial encounter for closed fracture Additional Impressions: Syncope Laceration of right forearm Departure Information Referrals Zach Monroy M.D. (PCP) Patient Instructions My [facility] Problem Qualifiers Additional Impressions: Syncope Syncope type: unspecified Qualified Codes: R55 - Syncope and collapse Laceration of right forearm Encounter type: initial encounter Qualified Codes: S51.811A - Laceration without foreign body of right forearm, initial encounter
[2017-05-29 20:00] VITALS: O2SAT 90
[2017-05-29] MEDS ORDERED: PIPERACILL/TAZOBAC IV 3.375 GM in DEXTROSE 5% 100ML IV ONE (20:00)
[2017-05-29] MEDS: LEVALBUTEROL 1.25MG/3ML NEB INH SCH ×2 (20:00→23:39)
[2017-05-29 20:01] VITALS: BP 151/106; PULSE 88; TEMP 36.5; O2SAT 90
[2017-05-29] MEDS ORDERED: PIPERACILL/TAZOBAC CONSULT ACTIVE PRN (20:15)
--- NOTE | 2017-05-29 20:53 | DIAGNOSTIC IMAGING REPORT ---
ULTRASOUND BILATERAL LOWER EXTREMITY VENOUS CLINICAL HISTORY: Elevated d-dimer. COMPARISON STUDY: No priors. TECHNIQUE: Real-time, grayscale, and color Doppler sonography of the deep veins of the right and left lower extremity was performed from the inguinal crease to the calf. Compression and augmentation were utilized. FINDINGS: There is no sonographic evidence of deep venous thrombosis identified in the right or left lower extremity. The common femoral, superficial femoral, and popliteal veins are patent and normally compressible bilaterally. The greater saphenous vein and the profunda femoris vein at the junction with the common femoral vein are clear in both legs. The visualized calf veins are patent bilaterally. IMPRESSION: There is no sonographic evidence of deep venous thrombosis identified in the right or left lower extremity. Electronically signed by: Orlando Caldwell M.D. 05/29/2017 8:51 PM Dictated Date/Time: 05/29/2017 8:51 PM
[2017-05-29] MEDS ORDERED: HEPARIN SOD 5000 UNIT/0.5 ML CARP SQ ONE (21:10)
[2017-05-29] MEDS ORDERED: INFLUENZA ADMINISTRATION CHARGE ONE (21:30)
[2017-05-29] MEDS ORDERED: INFLUENZA VIRUS QUAD VACCINE 0.5 ML SYR IM. ONE (21:30)
[2017-05-29 21:44] VITALS: BP 158/98; PULSE 89
[2017-05-29] MEDS: BUDESONIDE/FORMOTEROL FUMARATE 160/4.5 60 PUFFS/INHALER INH SCH (21:47)
[2017-05-29] MEDS: OXYCODONE/ACETAMINOPHEN 5-325 TAB PO PRN (21:51)
[2017-05-29 23:40] VITALS: PULSE 78; O2SAT 95
[2017-05-29 23:44] VITALS: BP 106/69; PULSE 81; TEMP 36.4; O2SAT 90
[2017-05-30] VITALS (11 sets, daily range): BP systolic 100–136; BP diastolic 64–79; PULSE 66–103; TEMP 36.4–36.6; O2SAT 87–96
[2017-05-30] MEDS ORDERED: PIPERACILL/TAZOBAC IV 4.5 GM in DEXTROSE 5% 100ML 100 ML IV SCH ×2
[2017-05-30] MEDS: ZOLPIDEM TARTRATE 10 MG TAB PO PRN ×2 (01:11→21:48)
[2017-05-30] MEDS: HYDROmorphone INJ 2 MG/ML SYR/VIAL IV PRN ×4 (01:11→21:49)
[2017-05-30] MEDS: PIPERACILL/TAZOBAC IV 3.375 GM in DEXTROSE 5% 100ML IV SCH ×2 (02:09→10:15)
[2017-05-30] MEDS: OXYCODONE/ACETAMINOPHEN 5-325 TAB PO PRN ×3 (05:44→19:06)
[2017-05-30 07:04] LABS: CREATININE 1.3 mg/dl (0.60-1.40)
[2017-05-30] MEDS: LEVALBUTEROL 1.25MG/3ML NEB INH SCH ×4 (07:08→19:10)
[2017-05-30 07:09] LABS: CKMB/CK RATIO 0.5 (0-3.0)
[2017-05-30] MEDS: BUDESONIDE/FORMOTEROL FUMARATE 160/4.5 60 PUFFS/INHALER INH SCH ×2 (08:02→21:48)
[2017-05-30] MEDS: PAROXETINE 20 MG TAB PO SCH (08:02)
[2017-05-30] MEDS: THIAMINE HCL 100 MG TAB PO SCH (08:02)
[2017-05-30] MEDS: CEROVITE ADV FORMULA TAB PO SCH (08:02)
[2017-05-30] MEDS: ASCORBIC ACID 500 MG TAB PO SCH (08:02)
[2017-05-30] MEDS: PANTOprazole SOD 40 MG TAB PO SCH (08:03)
[2017-05-30] MEDS: METOPROLOL SUCC 50MG EXT REL TAB PO SCH (08:03)
[2017-05-30] MEDS: HEPARIN SOD 5000 UNIT/0.5 ML CARP SQ SCH ×2 (08:07→21:51)
--- NOTE | 2017-05-30 12:26 | Progress Note ---
Internal Med Progress Note Date of Service: May 30, 2017. Provider Documentation: SUBJECTIVE: The patient was seen and examined Admitted with syncope and fall with right sided ribs fracture Complains of pain OBJECTIVE: Vital Signs-as noted below Exam: General-Moderate distress at rest Eyes-Normal ENT-Normal Neck-Supple Lungs-Decreased breath sound bilaterally No wheezing and or crackles Heart-Regular,2/6 ESM AA Abdomen-Benign,no masses,bowel sound present Extremities-No edema Neuro-AAOx3 Lab data as noted below. CTA::1. Streak and motion degraded examination. 2. There is no evidence of pulmonary embolus in the main, lobar, or segmental pulmonary arteries. 3. Advanced emphysema. 4. There are foci of tree-in-bud opacification seen throughout the right lung, greatest at the right lung base. Minimal similar opacities are seen at the left lung base. Layering secretions are present within the trachea and right mainstem bronchus and this suggests pneumonia/aspiration pneumonitis. Clinical correlation will be required. Follow-up CT scan in 3-4 months is recommended to document resolution. 5. Moderate hiatal hernia. 6. There are acute to subacute right lateral 6th and 7th rib fractures. 7. Additional findings as above. ASSESSMENT & PLAN: SYNCOPE/Exertional Chest pain Preceded by exertional dyspnea, chest pain, palpitations, lightheadedness. Echo February 2017 showed moderate aortic valve sclerosis without stenosis. Cardiac cath OK in 2013. Doubt acute coronary syndrome. Check cardiac markers-negative so far . Consider repeat stress testing if ongoing concerns. Monitor for arrhythmias-no arrhythmia Check orthostatic vital signs. POSSIBLE PNEUMONIA Cough productive of yellow sputum. No infiltrates on chest x-ray, but CT demonstrates bibasilar opacities as well as layering secretions within trachea and mainstem bronchi suggesting aspiration. Check sputum gram stain, C&S-pending. Rx with levofloxacin + piperacillin / tazobactam. F/U CT recommended. Multiple RIB FRACTURES S/P Fall Severe right-sided chest wall pain. Multiple rib fractures (right 6th and 7th per CT, right 5th, 6th, 7th, 10th per plain films). No pneumothorax. Incentive spirometry. Analgesics PRN. pain is reasonably controlled LACERATION RIGHT FOREARM 4 cm laceration right forearm. Tetanus booster up to date. Repaired in ED. Daily dressing changes. Sutures to be removed in 10 days. COPD with Ongoing Smoking Severe COPD. Nocturnal O2 prescribed, but not used for about 2 months due to equipment issues. Experiencing severe dyspnea on exertion. Possible pneumonia as discussed above. Continue Symbicort. Add levalbuterol / ipratropium nebs. Supplemental O2 as needed. Check 2-step O2 sats before discharge. Smoking cessation counseling. HYPERTENSION Hold HCTZ due to orthostatic lightheadedness and syncope. Continue metoprolol. Follow and titrate Rx. HART'S ESOPHAGUS Continue pantoprazole. CHRONIC CERVICAL PAIN Continue analgesics PRN. DEPRESSION Continue paroxetine. HISTORY OF ALCOHOL USE Heavy drinking at times in the past, but not recently. Pt states that last drink was about 2 wks ago. Monitor for possible alcohol withdrawal. Continue thiamine. POOR FUNCTIONAL STATUS PT / OT evals. VTE PROPHYLAXIS Moderate risk for VTE. SQ heparin. Ambulate as able. DISPOSITION Admit to Telemetry Unit. Discharge disposition to be determined; may need skilled care or rehab. Consult Case Management. Family Medicine follow-up with Dr. Monroy. PT/OT evaluation 2 steps before discharge . Vital Signs: Date Time Temp Pulse Resp B/P (MAP) Pulse Ox O2 Delivery O2 Flow Rate FiO2 05/30/17 11:46 103 18 96 Room Air 05/30/17 11:41 36.5 66 18 119/79 (92) 96 Room Air 05/30/17 08:15 92 130/78 (95) 05/30/17 08:00 Room Air 05/30/17 07:09 103 18 87 Room Air 05/30/17 07:07 36.5 92 20 109/67 (81) 89 Room Air 05/30/17 04:00 Room Air 05/30/17 04:00 36.6 12 100/64 (76) 92 Room Air 05/30/17 00:00 Room Air 05/29/17 23:44 36.4 81 18 106/69 (81) 90 Room Air 05/29/17 23:40 78 18 95 Room Air 05/29/17 21:44 89 158/98 (118) 05/29/17 20:01 36.5 88 24 151/106 (121) 90 Room Air 05/29/17 20:00 90 Room Air 05/29/17 19:21 Room Air 05/29/17 19:08 36.8 90 18 162/100 91 05/29/17 18:07 91 20 170/113 93 Room Air 05/29/17 15:44 88 22 175/117 93 Room Air 05/29/17 13:48 84 20 173/105 93 Room Air 05/29/17 13:47 72 05/29/17 13:21 94 Room Air 05/29/17 13:21 93 Room Air 05/29/17 12:08 36.7 71 22 167/85 95 Room Air Lab Results: Results Past 24 Hours Test 05/29/17 13:06 05/29/17 16:19 05/30/17 06:11 Range/Units White Blood Count 7.54 4.8-10.8 K/uL Red Blood Count 4.08 4.7-6.1 M/uL Hemoglobin 13.0 14.0-18.0 g/dL Hematocrit 39.8 42-52 % Mean Corpuscular Volume 97.5 80-100 fL Mean Corpuscular Hemoglobin 31.9 25-34 pg Mean Corpuscular Hemoglobin Concent 32.7 32-36 g/dl Platelet Count 289 130-400 K/uL Mean Platelet Volume 8.6 7.4-10.4 fL Neutrophils (%) (Auto) 81.8 % Lymphocytes (%) (Auto) 7.7 % Monocytes (%) (Auto) 9.4 % Eosinophils (%) (Auto) 0.3 % Basophils (%) (Auto) 0.4 % Neutrophils # (Auto) 6.17 1.4-6.5 K/uL Lymphocytes # (Auto) 0.58 1.2-3.4 K/uL Monocytes # (Auto) 0.71 0.11-0.59 K/uL Eosinophils # (Auto) 0.02 0-0.5 K/uL Basophils # (Auto) 0.03 0-0.2 K/uL RDW Standard Deviation 58.4 36.4-46.3 fL RDW Coefficient of Variation 16.5 11.5-14.5 % Immature Granulocyte % (Auto) 0.4 % Immature Granulocyte # (Auto) 0.03 0.00-0.02 K/uL Prothrombin Time 10.2 9.0-12.0 SECONDS Prothromb Time International Ratio 1.0 0.9-1.1 D-Dimer 600 0-500 ug/L FEU Sodium Level 139 136-145 mmol/L Potassium Level 3.7 3.5-5.1 mmol/L Chloride Level 102 98-107 mmol/L Carbon Dioxide Level 25 21-32 mmol/L Anion Gap 12.0 3-11 mmol/L Blood Urea Nitrogen 14 7-18 mg/dl Creatinine 0.85 1.30 0.60-1.40 mg/dl Est Creatinine Clear Calc Drug Dose 100.5 65.7 ml/min Estimated GFR () 107.5 67.3 Estimated GFR (Non- 92.7 58.1 BUN/Creatinine Ratio 15.9 10-20 Random Glucose 85 70-99 mg/dl Calcium Level 8.6 8.5-10.1 mg/dl Phosphorus Level 2.5 2.5-4.9 mg/dl Magnesium Level 2.1 1.8-2.4 mg/dl Total Bilirubin 0.8 0.2-1 mg/dl Direct Bilirubin 0.2 0-0.2 mg/dl Aspartate Amino Transf (AST/SGOT) 23 15-37 U/L Alanine Aminotransferase (ALT/SGPT) 18 12-78 U/L Alkaline Phosphatase 91 45-117 U/L Total Creatine Kinase 239 183 39-308 U/L Troponin I < 0.015 < 0.015 0-0.045 ng/ml Pro-B-Type Natriuretic Peptide 1324 0-900 pg/ml Total Protein 7.4 6.4-8.2 gm/dl Albumin 3.4 3.4-5.0 gm/dl Thyroid Stimulating Hormone (TSH) 1.260 0.300-4.500 uIu/ml Ethyl Alcohol mg/dL < 3.0 0-3 mg/dl Urine Color YELLOW Urine Appearance CLEAR CLEAR Urine pH 5.5 4.5-7.5 Urine Specific [place] 1.039 1.000-1.030 Urine Protein NEG NEG Urine Glucose (UA) NEG NEG Urine Ketones 1+ NEG Urine Occult Blood TRACE NEG Urine Nitrite NEG NEG Urine Bilirubin NEG NEG Urine Urobilinogen NEG NEG Urine Leukocyte Esterase NEG NEG Urine WBC (Auto) 0 0-5 /hpf Urine RBC (Auto) 0-4 0-4 /hpf Urine Hyaline Casts (Auto) 0 0-5 /lpf Urine Epithelial Cells (Auto) 0-5 0-5 /lpf Urine Bacteria (Auto) NEG NEG Urine Opiates Screen POS NEG Urine Methadone, Qualitative NEG NEG Urine Barbiturates NEG NEG Urine Phencyclidine (PCP) Level NEG NEG Ur Amphetamine/Methamphetamine NEG NEG MDMA (Ecstasy) Screen NEG NEG Urine Benzodiazepines Screen NEG NEG Urine Cocaine Metabolite NEG NEG Urine Marijuana (THC) POS NEG Creatine Kinase MB 1.0 0.5-3.6 ng/ml Creatine Kinase MB Ratio 0.5 0-3.0
[2017-05-30] MEDS: METRONIDAZOLE 500 MG TAB PO SCH (17:24)
[2017-05-30] MEDS: LEVOFLOXACIN 500 MG TAB PO SCH (17:24)
[2017-05-31] VITALS (11 sets, daily range): BP systolic 132–171; BP diastolic 65–100; PULSE 61–97; TEMP 36.3–36.7; O2SAT 63–97
[2017-05-31] MEDS: OXYCODONE/ACETAMINOPHEN 5-325 TAB PO PRN ×4 (02:51→20:28)
[2017-05-31] MEDS: HYDROmorphone INJ 2 MG/ML SYR/VIAL IV PRN ×4 (04:44→23:27)
[2017-05-31] MEDS: LEVALBUTEROL 1.25MG/3ML NEB INH SCH ×5 (06:52→19:31)
[2017-05-31 07:13] LABS: CREATININE 0.97 mg/dl (0.60-1.40)
[2017-05-31] MEDS: PANTOprazole SOD 40 MG TAB PO SCH (07:56)
[2017-05-31] MEDS: CEROVITE ADV FORMULA TAB PO SCH (07:56)
[2017-05-31] MEDS: METRONIDAZOLE 500 MG TAB PO SCH ×3 (07:56→20:29)
[2017-05-31] MEDS: BUDESONIDE/FORMOTEROL FUMARATE 160/4.5 60 PUFFS/INHALER INH SCH ×2 (07:56→20:28)
[2017-05-31] MEDS: ASCORBIC ACID 500 MG TAB PO SCH (07:56)
[2017-05-31] MEDS: PAROXETINE 20 MG TAB PO SCH (07:56)
[2017-05-31] MEDS: THIAMINE HCL 100 MG TAB PO SCH (07:57)
[2017-05-31] MEDS: METOPROLOL SUCC 50MG EXT REL TAB PO SCH (07:57)
[2017-05-31] MEDS: HEPARIN SOD 5000 UNIT/0.5 ML CARP SQ SCH ×2 (08:00→20:33)
--- NOTE | 2017-05-31 15:50 | Progress Note ---
Internal Med Progress Note Date of Service: May 31, 2017. Provider Documentation: SUBJECTIVE: The patient was seen and examined Admitted with syncope and fall with right sided ribs fracture Complains of pain Still has a lot of pain on coughing No fever ,chills Complains some swelling of the ankles OBJECTIVE: Vital Signs-as noted below Exam: General-Moderate distress at rest Eyes-Normal ENT-Normal Neck-Supple Lungs-Decreased breath sound bilaterally No wheezing and or crackles Heart-Regular,2/6 ESM AA Abdomen-Benign,no masses,bowel sound present Extremities-No edema Neuro-AAOx3 Lab data as noted below. CTA::1. Streak and motion degraded examination. 2. There is no evidence of pulmonary embolus in the main, lobar, or segmental pulmonary arteries. 3. Advanced emphysema. 4. There are foci of tree-in-bud opacification seen throughout the right lung, greatest at the right lung base. Minimal similar opacities are seen at the left lung base. Layering secretions are present within the trachea and right mainstem bronchus and this suggests pneumonia/aspiration pneumonitis. Clinical correlation will be required. Follow-up CT scan in 3-4 months is recommended to document resolution. 5. Moderate hiatal hernia. 6. There are acute to subacute right lateral 6th and 7th rib fractures. 7. Additional findings as above. ASSESSMENT & PLAN: SYNCOPE/Exertional Chest pain Preceded by exertional dyspnea, chest pain, palpitations, lightheadedness. Echo February 2017 showed moderate aortic valve sclerosis without stenosis. Cardiac cath OK in 2013. Doubt acute coronary syndrome-Negative To.NO arrhythmia noted in Monitor. Consider repeat stress testing if ongoing concerns-denies any more chest pain/ pressure. Check orthostatic vital signs.-BP remains high No more episodes of syncope POSSIBLE PNEUMONIA Cough productive of yellow sputum. No infiltrates on chest x-ray, but CT demonstrates bibasilar opacities as well as layering secretions within trachea and mainstem bronchi suggesting aspiration. Check sputum gram stain, C&S-pending.-Scant normal irma Rx with levofloxacin + piperacillin / tazobactam. Will get follow up Chest X-ray /CT Multiple RIB FRACTURES S/P Fall Severe right-sided chest wall pain. Multiple rib fractures (right 6th and 7th per CT, right 5th, 6th, 7th, 10th per plain films). No pneumothorax. Incentive spirometry. Analgesics PRN. pain is reasonably controlled Incentive Spirometry LACERATION RIGHT FOREARM 4 cm laceration right forearm. Tetanus booster up to date. Repaired in ED. Daily dressing changes. Sutures to be removed in 10 days. COPD with Ongoing Smoking Severe COPD. Nocturnal O2 prescribed, but not used for about 2 months due to equipment issues. Experiencing severe dyspnea on exertion. Possible pneumonia as discussed above. Continue Symbicort. Add levalbuterol / ipratropium nebs. Supplemental O2 as needed. Check 2-step O2 sat before discharge. Smoking cessation counseling. HYPERTENSION Hold HCTZ due to orthostatic lightheadedness and syncope. Continue metoprolol. Follow and titrate Rx BP is on the higher side. HART'S ESOPHAGUS Continue pantoprazole. CHRONIC CERVICAL PAIN Continue analgesics PRN. DEPRESSION Continue paroxetine. HISTORY OF ALCOHOL USE Heavy drinking at times in the past, but not recently. Pt states that last drink was about 2 wks ago. Monitor for possible alcohol withdrawal. Continue thiamine. POOR FUNCTIONAL STATUS PT / OT evals. VTE PROPHYLAXIS Moderate risk for VTE. SQ heparin. Ambulate as able. DISPOSITION Admit to Telemetry Unit. Discharge disposition to be determined; may need skilled care or rehab. Consult Case Management. Family Medicine follow-up with Dr. Monroy. PT/OT evaluation 2 steps before discharge Increase ambulation . Vital Signs: Date Time Temp Pulse Resp B/P (MAP) Pulse Ox O2 Delivery O2 Flow Rate FiO2 05/31/17 15:33 36.7 61 18 156/100 (118) 92 Room Air 05/31/17 12:00 Room Air 05/31/17 11:31 94 16 63 Room Air 05/31/17 10:57 36.4 64 18 138/81 (100) 95 Room Air 05/31/17 08:00 Room Air 05/31/17 07:48 36.5 63 20 132/80 (97) 97 Room Air 05/31/17 07:08 96 16 93 Room Air 05/31/17 04:00 Room Air 05/31/17 04:00 36.5 77 20 135/65 (88) 91 Room Air 05/31/17 00:00 Room Air 05/30/17 22:57 36.4 79 18 127/74 (91) 91 Room Air 05/30/17 21:07 36.4 84 16 115/67 (83) 93 Room Air 05/30/17 20:00 Room Air 05/30/17 19:13 103 14 96 Room Air 05/30/17 16:00 Room Air Lab Results: Results Past 24 Hours Test 05/31/17 06:26 Range/Units Creatinine 0.97 0.60-1.40 mg/dl Est Creatinine Clear Calc Drug Dose 88.1 ml/min Estimated GFR () 95.9 Estimated GFR (Non- 82.7 Microbiology Results 05/30/17 Gram Stain - Final, Resulted 05/30/17 Sputum Culture - Preliminary, Resulted LIGHT NORMAL IRMA Present, Final Rep...
[2017-05-31] MEDS: LEVOFLOXACIN 500 MG TAB PO SCH (17:25)
[2017-05-31] MEDS: MAGNESIUM HYDROXIDE SUSP 30 ML UDC PO PRN (18:37)
[2017-05-31] MEDS: ZOLPIDEM TARTRATE 10 MG TAB PO PRN (21:52)
[2017-05-31] MEDS: HydrALAZINE HCL 20 MG/ML VIAL IV. PRN (23:25)
[2017-06-01] VITALS (14 sets, daily range): BP systolic 96–154; BP diastolic 54–94; PULSE 67–84; TEMP 36.4–36.6; O2SAT 91–98
[2017-06-01] MEDS: OXYCODONE/ACETAMINOPHEN 5-325 TAB PO PRN ×4 (04:13→22:16)
[2017-06-01] MEDS: HYDROmorphone INJ 2 MG/ML SYR/VIAL IV PRN ×4 (05:50→23:38)
[2017-06-01 06:44] LABS: CREATININE 0.95 mg/dl (0.60-1.40)
[2017-06-01] MEDS: LEVALBUTEROL 1.25MG/3ML NEB INH SCH ×4 (07:02→19:10)
[2017-06-01] MEDS: BUDESONIDE/FORMOTEROL FUMARATE 160/4.5 60 PUFFS/INHALER INH SCH ×2 (08:22→19:52)
[2017-06-01] MEDS: PAROXETINE 20 MG TAB PO SCH (08:23)
[2017-06-01] MEDS: PANTOprazole SOD 40 MG TAB PO SCH (08:23)
[2017-06-01] MEDS: THIAMINE HCL 100 MG TAB PO SCH (08:23)
[2017-06-01] MEDS: METRONIDAZOLE 500 MG TAB PO SCH ×3 (08:23→19:52)
[2017-06-01] MEDS: ASCORBIC ACID 500 MG TAB PO SCH (08:23)
[2017-06-01] MEDS: CEROVITE ADV FORMULA TAB PO SCH (08:23)
[2017-06-01] MEDS: METOPROLOL SUCC 50MG EXT REL TAB PO SCH (08:23)
[2017-06-01] MEDS: HEPARIN SOD 5000 UNIT/0.5 ML CARP SQ SCH ×2 (08:28→19:54)
[2017-06-01 09:25] LABS: COD UR NEGATIVE NG/ML (CUTOFF=50); HYDROCOD UR NEGATIVE NG/ML (CUTOFF=50); HYDROMOR UR 1500 NG/ML (CUTOFF=50); MORPHINE UR NEGATIVE NG/ML (CUTOFF=50); NORHYDROCODONE CONF UR NEGATIVE NG/ML (CUTOFF=50); OXYMORPH UR 780 NG/ML (CUTOFF=50)
--- NOTE | 2017-06-01 17:09 | Progress Note ---
Internal Med Progress Note Date of Service: Jun 01, 2017. Provider Documentation: SUBJECTIVE: The patient was seen and examined Admitted with syncope and fall with right sided ribs fracture Complains of pain Still has a lot of pain on coughing No fever ,chills Complains some swelling of the ankles Getting Dizzy during PT OBJECTIVE: Vital Signs-as noted below Exam: General-Moderate distress at rest Eyes-Normal ENT-Normal Neck-Supple Lungs-Decreased breath sound bilaterally No wheezing and or crackles Heart-Regular,2/6 ESM AA Abdomen-Benign,no masses,bowel sound present Extremities-No edema Neuro-AAOx3 Lab data as noted below. CTA::1. Streak and motion degraded examination. 2. There is no evidence of pulmonary embolus in the main, lobar, or segmental pulmonary arteries. 3. Advanced emphysema. 4. There are foci of tree-in-bud opacification seen throughout the right lung, greatest at the right lung base. Minimal similar opacities are seen at the left lung base. Layering secretions are present within the trachea and right mainstem bronchus and this suggests pneumonia/aspiration pneumonitis. Clinical correlation will be required. Follow-up CT scan in 3-4 months is recommended to document resolution. 5. Moderate hiatal hernia. 6. There are acute to subacute right lateral 6th and 7th rib fractures. 7. Additional findings as above. ASSESSMENT & PLAN: SYNCOPE/Exertional Chest pain Preceded by exertional dyspnea, chest pain, palpitations, lightheadedness. Echo February 2017 showed moderate aortic valve sclerosis without stenosis. Cardiac cath OK in 2013. Doubt acute coronary syndrome-Negative To.NO arrhythmia noted in Monitor. Consider repeat stress testing if ongoing concerns-denies any more chest pain/ pressure. Check orthostatic vital signs.-BP remains high No more episodes of syncope No Orthostasis Remains dizzy on ambulation Not yet ready to be discharged Peer to Peer review requested POSSIBLE PNEUMONIA Cough productive of yellow sputum. No infiltrates on chest x-ray, but CT demonstrates bibasilar opacities as well as layering secretions within trachea and mainstem bronchi suggesting aspiration. Check sputum gram stain, C&S-pending.-Scant normal irma Rx with levofloxacin + piperacillin / tazobactam. Will get follow up Chest X-ray /CT Change to Levaquin only Multiple RIB FRACTURES S/P Fall Severe right-sided chest wall pain. Multiple rib fractures (right 6th and 7th per CT, right 5th, 6th, 7th, 10th per plain films). No pneumothorax. Incentive spirometry. Analgesics PRN. pain is reasonably controlled Incentive Spirometry -doing better LACERATION RIGHT FOREARM 4 cm laceration right forearm. Tetanus booster up to date. Repaired in ED. Daily dressing changes. Sutures to be removed in 10 days. COPD with Ongoing Smoking Severe COPD. Nocturnal O2 prescribed, but not used for about 2 months due to equipment issues. Experiencing severe dyspnea on exertion. Possible pneumonia as discussed above. Continue Symbicort. Add levalbuterol / ipratropium nebs. Supplemental O2 as needed. Check 2-step O2 sat before discharge. Smoking cessation counseling. HYPERTENSION Hold HCTZ due to orthostatic lightheadedness and syncope. Continue metoprolol. Follow and titrate Rx BP is on the higher side. HART'S ESOPHAGUS Continue pantoprazole. CHRONIC CERVICAL PAIN Continue analgesics PRN. DEPRESSION Continue paroxetine. HISTORY OF ALCOHOL USE Heavy drinking at times in the past, but not recently. Pt states that last drink was about 2 wks ago. Monitor for possible alcohol withdrawal. Continue thiamine. POOR FUNCTIONAL STATUS PT / OT evals. VTE PROPHYLAXIS Moderate risk for VTE. SQ heparin. Ambulate as able. DISPOSITION Admit to Telemetry Unit. Discharge disposition to be determined; may need skilled care or rehab. Consult Case Management. Family Medicine follow-up with Dr. Monroy. PT/OT evaluation 2 steps before discharge Increase ambulation . Vital Signs: Date Time Temp Pulse Resp B/P (MAP) Pulse Ox O2 Delivery O2 Flow Rate FiO2 06/01/17 15:32 80 16 94 Room Air 06/01/17 15:22 36.5 78 20 128/82 (97) 93 Room Air 06/01/17 13:21 134/79 (97) 136/88 (104) 124/77 (93) 06/01/17 12:33 36.5 68 18 131/79 (96) 95 Room Air 06/01/17 11:50 Nasal Cannula 3.0 06/01/17 11:16 76 16 95 Room Air 06/01/17 07:45 Nasal Cannula 3.0 06/01/17 07:24 36.5 67 20 125/72 (89) 98 Nasal Cannula 4.0 06/01/17 07:02 76 16 94 Room Air 06/01/17 04:10 113/72 (86) 06/01/17 04:01 36.4 84 18 96/54 (68) 91 Room Air 06/01/17 04:00 Nasal Cannula 3.0 06/01/17 00:09 76 136/84 (101) 05/31/17 23:59 Nasal Cannula 3.0 05/31/17 23:29 36.3 75 20 171/97 (121) 93 Room Air 05/31/17 20:00 91 Room Air 05/31/17 19:40 36.5 97 24 149/86 (107) 96 Room Air 05/31/17 19:31 88 16 93 Room Air Lab Results: Results Past 24 Hours Test 06/01/17 05:32 Range/Units Creatinine 0.95 0.60-1.40 mg/dl Est Creatinine Clear Calc Drug Dose 89.9 ml/min Estimated GFR () 98.3 Estimated GFR (Non- 84.9
[2017-06-01] MEDS: LEVOFLOXACIN 500 MG TAB PO SCH (18:07)
[2017-06-01] MEDS: MAGNESIUM HYDROXIDE SUSP 30 ML UDC PO PRN (19:34)
[2017-06-01] MEDS: ZOLPIDEM TARTRATE 10 MG TAB PO PRN (22:15)
[2017-06-02] VITALS (8 sets, daily range): BP systolic 92–155; BP diastolic 51–91; PULSE 64–89; TEMP 36.3–36.7; O2SAT 92–97
[2017-06-02] MEDS: OXYCODONE/ACETAMINOPHEN 5-325 TAB PO PRN ×4 (04:33→22:33)
[2017-06-02] MEDS: HYDROmorphone INJ 2 MG/ML SYR/VIAL IV PRN ×3 (05:59→18:02)
[2017-06-02] MEDS: BUDESONIDE/FORMOTEROL FUMARATE 160/4.5 60 PUFFS/INHALER INH SCH ×2 (06:53→20:29)
[2017-06-02] MEDS: PANTOprazole SOD 40 MG TAB PO SCH (06:54)
[2017-06-02] MEDS: METRONIDAZOLE 500 MG TAB PO SCH ×3 (06:54→20:30)
[2017-06-02] MEDS: METOPROLOL SUCC 50MG EXT REL TAB PO SCH (06:54)
[2017-06-02] MEDS: THIAMINE HCL 100 MG TAB PO SCH (06:54)
[2017-06-02] MEDS: CEROVITE ADV FORMULA TAB PO SCH (06:54)
[2017-06-02] MEDS: ASCORBIC ACID 500 MG TAB PO SCH (06:54)
[2017-06-02] MEDS: PAROXETINE 20 MG TAB PO SCH (06:55)
[2017-06-02] MEDS: HEPARIN SOD 5000 UNIT/0.5 ML CARP SQ SCH ×2 (07:00→20:34)
[2017-06-02] MEDS: LEVALBUTEROL 1.25MG/3ML NEB INH SCH ×4 (07:18→19:09)
--- NOTE | 2017-06-02 14:38 | Progress Note ---
Internal Med Progress Note Date of Service: Jun 02, 2017. Provider Documentation: SUBJECTIVE: The patient was seen and examined Admitted with syncope and fall with right sided ribs fracture Still has a lot of pain on coughing A little better today Ambulating with difficulty OBJECTIVE: Vital Signs-as noted below Exam: General-Moderate distress at rest Eyes-Normal ENT-Normal Neck-Supple Lungs-Decreased breath sound bilaterally No wheezing and or crackles Heart-Regular,2/6 ESM AA Abdomen-Benign,no masses,bowel sound present Extremities-No edema Neuro-AAOx3 Lab data as noted below. CTA::1. Streak and motion degraded examination. 2. There is no evidence of pulmonary embolus in the main, lobar, or segmental pulmonary arteries. 3. Advanced emphysema. 4. There are foci of tree-in-bud opacification seen throughout the right lung, greatest at the right lung base. Minimal similar opacities are seen at the left lung base. Layering secretions are present within the trachea and right mainstem bronchus and this suggests pneumonia/aspiration pneumonitis. Clinical correlation will be required. Follow-up CT scan in 3-4 months is recommended to document resolution. 5. Moderate hiatal hernia. 6. There are acute to subacute right lateral 6th and 7th rib fractures. 7. Additional findings as above. ASSESSMENT & PLAN: SYNCOPE/Exertional Chest pain Preceded by exertional dyspnea, chest pain, palpitations, lightheadedness. Echo February 2017 showed moderate aortic valve sclerosis without stenosis. Cardiac cath OK in 2013. Doubt acute coronary syndrome-Negative To.NO arrhythmia noted in Monitor. Consider repeat stress testing if ongoing concerns-denies any more chest pain/ pressure. Check orthostatic vital signs.-BP remains high No more episodes of syncope No Orthostasis Remains dizzy on ambulation Not yet ready to be discharged Peer to Peer review requested Likely to be discharged tomorrow POSSIBLE PNEUMONIA Cough productive of yellow sputum. No infiltrates on chest x-ray, but CT demonstrates bibasilar opacities as well as layering secretions within trachea and mainstem bronchi suggesting aspiration. Check sputum gram stain, C&S-pending.-Scant normal irma Rx with levofloxacin + piperacillin / tazobactam. Will get follow up Chest X-ray /CT Change to Levaquin only CXR in AM Multiple RIB FRACTURES S/P Fall Severe right-sided chest wall pain. Multiple rib fractures (right 6th and 7th per CT, right 5th, 6th, 7th, 10th per plain films). No pneumothorax. Incentive spirometry. Analgesics PRN. pain is reasonably controlled Incentive Spirometry -doing better 2 steps before discharge LACERATION RIGHT FOREARM 4 cm laceration right forearm. Tetanus booster up to date. Repaired in ED. Daily dressing changes. Sutures to be removed in 10 days. COPD with Ongoing Smoking Severe COPD. Nocturnal O2 prescribed, but not used for about 2 months due to equipment issues. Experiencing severe dyspnea on exertion. Possible pneumonia as discussed above. Continue Symbicort.,Add levalbuterol / ipratropium nebs. Supplemental O2 as needed. Check 2-step O2 sat before discharge. Smoking cessation counseling. HYPERTENSION Hold HCTZ due to orthostatic lightheadedness and syncope. Continue metoprolol. Follow and titrate Rx BP is on the higher side. HART'S ESOPHAGUS Continue pantoprazole. CHRONIC CERVICAL PAIN Continue analgesics PRN. DEPRESSION Continue paroxetine. HISTORY OF ALCOHOL USE Heavy drinking at times in the past, but not recently. Pt states that last drink was about 2 wks ago. Monitor for possible alcohol withdrawal. Continue thiamine. VTE PROPHYLAXIS Moderate risk for VTE. SQ heparin. Ambulate as able. DISPOSITION Admit to Telemetry Unit. Discharge disposition to be determined; may need skilled care or rehab. Consult Case Management. Family Medicine follow-up with Dr. Monroy. PT/OT evaluation 2 steps before discharge Increase ambulation Likely to be discharged tomorrow Vital Signs: Date Time Temp Pulse Resp B/P (MAP) Pulse Ox O2 Delivery O2 Flow Rate FiO2 06/02/17 12:00 Room Air 06/02/17 11:57 36.4 71 18 130/79 (96) 93 Room Air 71 132/91 (105) 67 151/76 (101) 06/02/17 08:00 Room Air 06/02/17 07:39 36.3 65 18 142/84 (103) 94 Room Air 80 155/78 (103) 71 146/81 (102) 06/02/17 07:18 85 18 97 Room Air 06/02/17 04:35 36.3 85 18 92/51 (65) 93 Room Air 89 128/83 (98) 88 134/81 (98) 06/02/17 04:00 Room Air 06/02/17 00:00 Room Air 06/01/17 23:30 36.4 80 18 154/94 (114) 94 Room Air 06/01/17 20:00 Room Air 06/01/17 19:40 36.6 75 18 137/90 (106) 93 Room Air 06/01/17 19:10 79 18 95 Room Air 06/01/17 16:00 92 Room Air 06/01/17 15:32 80 16 94 Room Air 06/01/17 15:22 36.5 78 20 128/82 (97) 93 Room Air Lab Results: Results Past 24 Hours Test 06/02/17 07:01 Range/Units Lipase 199 73-393 U/L
[2017-06-02] MEDS: LEVOFLOXACIN 500 MG TAB PO SCH (18:02)
[2017-06-02] MEDS: ZOLPIDEM TARTRATE 10 MG TAB PO PRN (22:32)
[2017-06-03] VITALS (12 sets, daily range): BP systolic 130–171; BP diastolic 82–111; PULSE 68–96; TEMP 36.4–36.6; O2SAT 90–96
[2017-06-03] MEDS: HYDROmorphone INJ 2 MG/ML SYR/VIAL IV PRN ×3 (00:01→12:09)
[2017-06-03] MEDS: OXYCODONE/ACETAMINOPHEN 5-325 TAB PO PRN ×4 (04:51→22:35)
[2017-06-03] MEDS: LEVALBUTEROL 1.25MG/3ML NEB INH SCH ×4 (07:30→19:27)
[2017-06-03 08:05] LABS: HEMATOCRIT 34.6 % (42-52); MEAN CORPUSCULAR HEMOGLOBIN 32.1 pg (25-34); MEAN CORPUSCULAR HGB CONC 32.1 g/dl (32-36); MEAN PLATELET VOLUME 8.8 fL (7.4-10.4); PLATELET COUNT 257 K/uL (130-400); RED BLOOD COUNT 3.46 M/uL (4.7-6.1)
[2017-06-03 08:10] LABS: BUN/CREATININE RATIO 13.6 (10-20); CALCIUM 8.9 mg/dl (8.5-10.1); CREATININE 0.88 mg/dl (0.60-1.40); MAGNESIUM 1.9 mg/dl (1.8-2.4); POTASSIUM 4.1 mmol/L (3.5-5.1)
[2017-06-03 08:12] LABS: PHOSPHORUS 4.5 mg/dl (2.5-4.9)
[2017-06-03] MEDS: METRONIDAZOLE 500 MG TAB PO SCH ×3 (09:05→20:02)
[2017-06-03] MEDS: CEROVITE ADV FORMULA TAB PO SCH (09:05)
[2017-06-03] MEDS: PANTOprazole SOD 40 MG TAB PO SCH (09:05)
[2017-06-03] MEDS: ASCORBIC ACID 500 MG TAB PO SCH (09:05)
[2017-06-03] MEDS: PAROXETINE 20 MG TAB PO SCH (09:05)
[2017-06-03] MEDS: THIAMINE HCL 100 MG TAB PO SCH (09:05)
[2017-06-03] MEDS: BUDESONIDE/FORMOTEROL FUMARATE 160/4.5 60 PUFFS/INHALER INH SCH ×2 (09:08→20:04)
[2017-06-03] MEDS: METOPROLOL SUCC 50MG EXT REL TAB PO SCH (09:08)
[2017-06-03] MEDS: HEPARIN SOD 5000 UNIT/0.5 ML CARP SQ SCH ×2 (09:11→20:03)
--- NOTE | 2017-06-03 10:46 | DIAGNOSTIC IMAGING REPORT ---
CHEST 2 VIEWS ROUTINE CLINICAL HISTORY: 61 years-old Male presenting with pneumonia. TECHNIQUE: PA and lateral views of the chest were obtained. COMPARISON: 02/01/2017. FINDINGS: Cardiomediastinal silhouette normal. Interval development of hazy reticulonodular opacities in the bilateral mid to lower lungs, right greater than left. Lungs hyperinflated. Trace right pleural may be present. No pneumothorax. Osseous structures normal. Upper abdomen normal. IMPRESSION: 1. Hazy bilateral mid to lower lung reticulonodular opacities suggested, right greater than left, concerning for pneumonia or aspiration. Trace right pleural effusion. Electronically signed by: Zach Townsend M.D. 06/03/2017 10:45 AM Dictated Date/Time: 06/03/2017 10:42 AM
[2017-06-03] MEDS: HydrALAZINE HCL 20 MG/ML VIAL IV. PRN (11:38)
--- NOTE | 2017-06-03 12:53 | Progress Note ---
Internal Med Progress Note Date of Service: Jun 03, 2017. Provider Documentation: SUBJECTIVE: The patient was seen and examined Admitted with syncope and fall with right sided ribs fracture Pain seems to be controlled at rest Some pain on ambulation Reasonably ambulating OBJECTIVE: Vital Signs-as noted below Exam: General-No distress at rest Eyes-Normal ENT-Normal Neck-Supple Lungs-Decreased breath sound bilaterally No wheezing and or crackles Heart-Regular,2/6 ESM AA Abdomen-Benign,no masses,bowel sound present Extremities-No edema Neuro-AAOx3 Lab data as noted below. CTA::1. Streak and motion degraded examination. 2. There is no evidence of pulmonary embolus in the main, lobar, or segmental pulmonary arteries. 3. Advanced emphysema. 4. There are foci of tree-in-bud opacification seen throughout the right lung, greatest at the right lung base. Minimal similar opacities are seen at the left lung base. Layering secretions are present within the trachea and right mainstem bronchus and this suggests pneumonia/aspiration pneumonitis. Clinical correlation will be required. Follow-up CT scan in 3-4 months is recommended to document resolution. 5. Moderate hiatal hernia. 6. There are acute to subacute right lateral 6th and 7th rib fractures. 7. Additional findings as above. ASSESSMENT & PLAN: SYNCOPE/Exertional Chest pain Preceded by exertional dyspnea, chest pain, palpitations, lightheadedness. Echo February 2017 showed moderate aortic valve sclerosis without stenosis. Cardiac cath OK in 2013. Doubt acute coronary syndrome-Negative To.NO arrhythmia noted in Monitor. Consider repeat stress testing if ongoing concerns-denies any more chest pain/ pressure. Check orthostatic vital signs.-BP remains high No more episodes of syncope No Orthostasis Denies any more dizziness on Ambulation Denies any cardiac symptoms POSSIBLE PNEUMONIA Cough productive of yellow sputum. No infiltrates on chest x-ray, but CT demonstrates bibasilar opacities as well as layering secretions within trachea and mainstem bronchi suggesting aspiration. Check sputum gram stain, C&S-pending.-Scant normal irma Rx with levofloxacin + piperacillin / tazobactam. Will get follow up Chest X-ray /CT Change to Levaquin only CXR in AM -Hazy bilateral mid to lower lung reticulonodular opacities suggested , right greater than left, concerning for pneumonia or aspiration. Trace right pleural effusion. Will finish the course of antibiotics with anerobic coverase Multiple RIB FRACTURES S/P Fall Severe right-sided chest wall pain. Multiple rib fractures (right 6th and 7th per CT, right 5th, 6th, 7th, 10th per plain films). No pneumothorax. Incentive spirometry. Analgesics PRN. pain is reasonably controlled Incentive Spirometry -doing better 2 steps before discharge LACERATION RIGHT FOREARM 4 cm laceration right forearm. Tetanus booster up to date. Repaired in ED. Daily dressing changes. Sutures to be removed in 10 days.-can be taken out on 07/07/17 at PCPs visit COPD with Ongoing Smoking Severe COPD. Nocturnal O2 prescribed, but not used for about 2 months due to equipment issues. Experiencing severe dyspnea on exertion. Possible pneumonia as discussed above. Continue Symbicort.,Add levalbuterol / ipratropium nebs. Supplemental O2 as needed. Check 2-step O2 sat before discharge. Smoking cessation counseling. HYPERTENSION Hold HCTZ due to orthostatic lightheadedness and syncope. Continue metoprolol. Follow and titrate Rx BP is on the higher side. HART'S ESOPHAGUS Continue pantoprazole. CHRONIC CERVICAL PAIN Continue analgesics PRN. DEPRESSION Continue paroxetine. HISTORY OF ALCOHOL USE Heavy drinking at times in the past, but not recently. Pt states that last drink was about 2 wks ago. Monitor for possible alcohol withdrawal. Continue thiamine. VTE PROPHYLAXIS Moderate risk for VTE. SQ heparin. Ambulate as able. DISPOSITION Admit to Telemetry Unit. Discharge disposition to be determined; may need skilled care or rehab. Consult Case Management. Family Medicine follow-up with Dr. Monroy. PT/OT evaluation 2 steps before discharge Increase ambulation Likely to be discharged tomorrow CT of the Chest::1. Streak and motion degraded examination.. There is no evidence of pulmonary embolus in the main, lobar, or segmental pulmonary arteries. 3. Advanced emphysema. 4. There are foci of tree-in-bud opacification seen throughout the right lung, greatest at the right lung base. Minimal similar opacities are seen at the left lung base. Layering secretions are present within the trachea and right mainstem bronchus and this suggests pneumonia/aspiration pneumonitis. Clinical correlation will be required. Follow-up CT scan in 3-4 months is recommended to document resolution. 5. Moderate hiatal hernia. 6. There are acute to subacute right lateral 6th and 7th rib fractures. 7. Additional findings as above. Discharge today Vital Signs: Date Time Temp Pulse Resp B/P (MAP) Pulse Ox O2 Delivery O2 Flow Rate FiO2 06/03/17 11:22 36.6 71 18 165/93 (117) 95 83 160/91 (114) 79 168/96 (120) 06/03/17 11:00 76 18 93 Room Air 06/03/17 09:05 91 141/94 (110) 06/03/17 08:00 92 Room Air 06/03/17 07:46 36.6 80 18 130/83 (99) 92 Room Air 89 143/87 (105) 94 147/90 (109) 06/03/17 07:10 93 18 90 Room Air 06/03/17 05:14 36.5 85 18 154/82 (106) 92 Room Air 83 159/84 (109) 95 161/99 (119) 06/03/17 04:00 Room Air 06/03/17 00:04 36.6 81 18 150/89 (109) 92 Room Air 06/03/17 00:00 Room Air 06/02/17 20:00 Room Air 06/02/17 19:12 74 18 92 Room Air 06/02/17 19:06 36.7 73 18 132/79 (96) 92 Room Air 06/02/17 16:20 36.7 64 18 136/82 (100) 93 06/02/17 16:00 Room Air 06/02/17 15:09 65 18 92 Room Air Lab Results: Results Past 24 Hours Test 06/03/17 07:19 Range/Units White Blood Count 4.70 4.8-10.8 K/uL Red Blood Count 3.46 4.7-6.1 M/uL Hemoglobin 11.1 14.0-18.0 g/dL Hematocrit 34.6 42-52 % Mean Corpuscular Volume 100.0 80-100 fL Mean Corpuscular Hemoglobin 32.1 25-34 pg Mean Corpuscular Hemoglobin Concent 32.1 32-36 g/dl RDW Standard Deviation 58.7 36.4-46.3 fL RDW Coefficient of Variation 16.2 11.5-14.5 % Platelet Count 257 130-400 K/uL Mean Platelet Volume 8.8 7.4-10.4 fL Sodium Level 137 136-145 mmol/L Potassium Level 4.1 3.5-5.1 mmol/L Chloride Level 102 98-107 mmol/L Carbon Dioxide Level 29 21-32 mmol/L Anion Gap 6.0 3-11 mmol/L Blood Urea Nitrogen 12 7-18 mg/dl Creatinine 0.88 0.60-1.40 mg/dl Est Creatinine Clear Calc Drug Dose 97.1 ml/min Estimated GFR () 106.0 Estimated GFR (Non- 91.4 BUN/Creatinine Ratio 13.6 10-20 Random Glucose 94 70-99 mg/dl Calcium Level 8.9 8.5-10.1 mg/dl Phosphorus Level 4.5 2.5-4.9 mg/dl Magnesium Level 1.9 1.8-2.4 mg/dl
[2017-06-03] MEDS ORDERED: LCTX PO (12:58)
[2017-06-03] MEDS ORDERED: OXYC-57 PO (12:58)
[2017-06-03] MEDS ORDERED: MTR500 PO (12:58)
[2017-06-03] MEDS ORDERED: LVQ500 PO (12:58)
--- NOTE | 2017-06-03 13:02 | Discharge Instructions ---
Discharge Instructions Date of Service Jun 03, 2017. Admission Reason for Admission: Syncope Discharge Discharge Diagnosis / Problem: Syncope-no apparent cause,Fall with multiple ribs fracture,COPD,Pneumonia Discharge Goals Goal(s): Prevent Disease Progression Activity Recommendations Activity Limitations: resume your previous activity . Instructions / Follow-Up Instructions / Follow-Up Dr Monroy on 06/06/17 at 10:25 AM.Removal of stitches Current Hospital Diet Patient's current hospital diet: AHA Diet (Heart Healthy) Discharge Diet Recommended Diet: AHA Diet (Heart Healthy) Pending Studies Studies pending at discharge: no Medical Emergencies . Who to Call and When: Medical Emergencies: If at any time you feel your situation is an emergency, please call 911 immediately. . Non-Emergent Contact Non-Emergency issues call your: Primary Care Provider . 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 "Provider Documentation" section prepared by Claudia Sanabria. . VTE Core Measure Inpt VTE Proph given/why not?: Unfractionated heparin SQ
[2017-06-03] MEDS: HYDROmorphone INJ 1 MG/ML SYR IV PRN (18:02)
[2017-06-03] MEDS: LEVOFLOXACIN 500 MG TAB PO SCH (18:03)
[2017-06-03] MEDS: ZOLPIDEM TARTRATE 10 MG TAB PO PRN (22:34)
[2017-06-04] VITALS (7 sets, daily range): BP systolic 153–169; BP diastolic 81–99; PULSE 68–92; TEMP 36.4–36.6; O2SAT 87–93
[2017-06-04] MEDS: HYDROmorphone INJ 1 MG/ML SYR IV PRN ×2 (00:04→06:28)
[2017-06-04] MEDS: OXYCODONE/ACETAMINOPHEN 5-325 TAB PO PRN ×2 (05:12→11:00)
[2017-06-04] MEDS: LEVALBUTEROL 1.25MG/3ML NEB INH SCH ×2 (07:12→11:11)
[2017-06-04] MEDS: PANTOprazole SOD 40 MG TAB PO SCH (08:11)
[2017-06-04] MEDS: CEROVITE ADV FORMULA TAB PO SCH (08:11)
[2017-06-04] MEDS: METRONIDAZOLE 500 MG TAB PO SCH (08:11)
[2017-06-04] MEDS: THIAMINE HCL 100 MG TAB PO SCH (08:11)
[2017-06-04] MEDS: PAROXETINE 20 MG TAB PO SCH (08:12)
[2017-06-04] MEDS: METOPROLOL SUCC 50MG EXT REL TAB PO SCH (08:12)
[2017-06-04] MEDS: ASCORBIC ACID 500 MG TAB PO SCH (08:12)
[2017-06-04] MEDS: BUDESONIDE/FORMOTEROL FUMARATE 160/4.5 60 PUFFS/INHALER INH SCH (08:13)
[2017-06-04] MEDS: HEPARIN SOD 5000 UNIT/0.5 ML CARP SQ SCH (08:20)
--- NOTE | 2017-06-04 13:32 | Progress Note ---
Internal Med Progress Note Date of Service: Jun 04, 2017. Provider Documentation: SUBJECTIVE: The patient was seen and examined Admitted with syncope and fall with right sided ribs fracture Feels a lot better Willing to go home today Oxygen issue is going to be fixed OBJECTIVE: Vital Signs-as noted below Exam: General-No distress at rest Eyes-Normal ENT-Normal Neck-Supple Lungs-Decreased breath sound bilaterally No wheezing and or crackles Heart-Regular,2/6 ESM AA Abdomen-Benign,no masses,bowel sound present Extremities-No edema Neuro-AAOx3 Lab data as noted below. CTA::1. Streak and motion degraded examination. 2. There is no evidence of pulmonary embolus in the main, lobar, or segmental pulmonary arteries. 3. Advanced emphysema. 4. There are foci of tree-in-bud opacification seen throughout the right lung, greatest at the right lung base. Minimal similar opacities are seen at the left lung base. Layering secretions are present within the trachea and right mainstem bronchus and this suggests pneumonia/aspiration pneumonitis. Clinical correlation will be required. Follow-up CT scan in 3-4 months is recommended to document resolution. 5. Moderate hiatal hernia. 6. There are acute to subacute right lateral 6th and 7th rib fractures. 7. Additional findings as above. ASSESSMENT & PLAN: SYNCOPE/Exertional Chest pain Preceded by exertional dyspnea, chest pain, palpitations, lightheadedness. Echo February 2017 showed moderate aortic valve sclerosis without stenosis. Cardiac cath OK in 2013. Doubt acute coronary syndrome-Negative To.NO arrhythmia noted in Monitor. Consider repeat stress testing if ongoing concerns-denies any more chest pain/ pressure. Check orthostatic vital signs.-BP remains high No more episodes of syncope No Orthostasis Denies any more dizziness on Ambulation Denies any cardiac symptoms POSSIBLE PNEUMONIA Cough productive of yellow sputum. No infiltrates on chest x-ray, but CT demonstrates bibasilar opacities as well as layering secretions within trachea and mainstem bronchi suggesting aspiration. Check sputum gram stain, C&S-pending.-Scant normal irma Rx with levofloxacin + piperacillin / tazobactam. Will get follow up Chest X-ray /CT Change to Levaquin only CXR in AM -Hazy bilateral mid to lower lung reticulonodular opacities suggested , right greater than left, concerning for pneumonia or aspiration. Trace right pleural effusion. Will finish the course of antibiotics with anaerobic coverage Multiple RIB FRACTURES S/P Fall Severe right-sided chest wall pain. Multiple rib fractures (right 6th and 7th per CT, right 5th, 6th, 7th, 10th per plain films). No pneumothorax. Incentive spirometry. Analgesics PRN. pain is reasonably controlled Incentive Spirometry -doing better Uses Oxygen at home LACERATION RIGHT FOREARM 4 cm laceration right forearm. Tetanus booster up to date. Repaired in ED. Daily dressing changes. Sutures to be removed in 10 days.-can be taken out on 07/07/17 at PCPs visit COPD with Ongoing Smoking Severe COPD. Nocturnal O2 prescribed, but not used for about 2 months due to equipment issues. Experiencing severe dyspnea on exertion. Possible pneumonia as discussed above. Continue Symbicort.,Add levalbuterol / ipratropium nebs. Supplemental O2 as needed. Check 2-step O2 sat before discharge. Smoking cessation counseling. HYPERTENSION Hold HCTZ due to orthostatic lightheadedness and syncope. Continue metoprolol. Follow and titrate Rx BP is on the higher side. HART'S ESOPHAGUS Continue pantoprazole. CHRONIC CERVICAL PAIN Continue analgesics PRN. DEPRESSION Continue paroxetine. HISTORY OF ALCOHOL USE Heavy drinking at times in the past, but not recently. Pt states that last drink was about 2 wks ago. Monitor for possible alcohol withdrawal. Continue thiamine. VTE PROPHYLAXIS Moderate risk for VTE. SQ heparin. Ambulate as able. DISPOSITION Admit to Telemetry Unit. Discharge disposition to be determined; may need skilled care or rehab. Consult Case Management. Family Medicine follow-up with Dr. Monroy. PT/OT evaluation 2 steps before discharge-not needed as he uses oxygen at home Increase ambulation Likely to be discharged tomorrow CT of the Chest::1. Streak and motion degraded examination.. There is no evidence of pulmonary embolus in the main, lobar, or segmental pulmonary arteries. 3. Advanced emphysema. 4. There are foci of tree-in-bud opacification seen throughout the right lung, greatest at the right lung base. Minimal similar opacities are seen at the left lung base. Layering secretions are present within the trachea and right mainstem bronchus and this suggests pneumonia/aspiration pneumonitis. Clinical correlation will be required. Follow-up CT scan in 3-4 months is recommended to document resolution. 5. Moderate hiatal hernia. 6. There are acute to subacute right lateral 6th and 7th rib fractures. 7. Additional findings as above. Discharge today 06/04/17 Vital Signs: Date Time Temp Pulse Resp B/P (MAP) Pulse Ox O2 Delivery O2 Flow Rate FiO2 06/04/17 11:11 70 18 93 Room Air 06/04/17 10:17 36.6 90 16 90 Room Air 06/04/17 08:00 90 Room Air 06/04/17 07:21 36.6 90 16 153/81 (105) 90 Room Air 06/04/17 07:12 68 18 87 Room Air 06/04/17 05:32 36.4 79 18 169/96 (120) 93 Room Air 91 164/88 (113) 92 155/99 (117) 06/04/17 04:00 Room Air 06/04/17 00:07 36.4 92 18 154/82 (106) 92 Room Air 06/04/17 00:00 Room Air 06/03/17 20:04 36.4 81 18 156/82 (106) 93 Room Air 06/03/17 20:00 Room Air 06/03/17 19:28 68 18 96 Room Air 06/03/17 16:36 36.6 96 22 171/111 (131) 93 Room Air 161/95 (117) 147/93 (111) 06/03/17 16:00 Room Air 06/03/17 14:58 79 18 95 Room Air
--- NOTE | 2017-06-05 14:52 | Discharge Summary ---
Discharge Summary Date of Service Jun 05, 2017. Discharge Summary Admission Date: May 29, 2017 at 18:21 Discharge Date: Jun 03, 2017 Discharge Disposition: Home Principal Diagnosis: Syncope-no apparent cause,Fall with multiple ribs fracture,COPD,Pneumonia Secondary Diagnoses/Problems: Please see H&P and Hospital progress note Medication Reconciliation New Medications: Lactobacillus Acidophilus (Lactinex) Tab 2 TAB PO BID, #30 TAB Levofloxacin (Levofloxacin) 500 Mg Tab 500 MG PO DAILY@1800 for 5 Days, #5 TAB Metronidazole (Metronidazole) 500 Mg Tab 500 MG PO TID for 5 Days, #15 TAB Changed Medications: Oxycodone/Acetaminophen 5MG/325MG (Percocet 5MG/325MG) Tab 1-2 TABS PO Q6H PRN for Pain for 5 Days, #30 (Changed from: 1 TABS) PAIN Continued Medications: Albuterol Hfa (Ventolin Hfa) 200 Puffs/57036 Mcg Aers 2 PUFFS INH QID PRN for Shortness of Breath, #1 INHALER Ascorbic Acid (Vitamin C) 500 Mg Tab 1000 MG PO QAM Budesonide/Formoterol Fumarate (Symbicort 160/4.5 Inhaler ) Aero 2 PUFFS INH BID, INHALER Home O2 Therapy (Oxygen) Gas 3 LITERS NA HS Hydrochlorothiazide (Hctz) 25 Mg Tab 25 MG PO QAM Metoprolol Succ (Toprol Xl) (Toprol-Xl ) 100 Mg Tabcr 100 MG PO QAM Multiple Vitamins W/ Minerals (Multi Vitamin and Mineral) 1 Tab Tab 1 TABS PO DAILY, #30 TABS Pantoprazole (Protonix) 40 Mg Tab 40 MG PO QAM Paroxetine (Paxil) 20 Mg Tab 20 MG PO DAILY, TAB Thiamine HCl (Vitamin B-1) 100 Mg Tab 100 MG PO QAM, #30 TAB Zolpidem Tartrate (Ambien) 10 Mg Tab 10 MG PO HS PRN for Sleep Admission Information HPI (per Admitting provider): 61 YO male followed by Dr. Monroy for Family Medicine. History of hypertension, COPD, and other problems noted below. Admitted in 2013 with chest pain. OH ruled out. Nuclear stress test showed possible stress-induced ischemia. Cardiac cath demonstrated normal coronaries. Last hospitalized in February after syncopal episode. Echo did not show any hemodynamically significant valvular disease. CTA chest negative for pulmonary embolism. COPD is severe, requiring nocturnal O2. Has been without O2 for about 2 months due to equipment issues. Has been experiencing chest pressure, dyspnea, palpitations, and lightheadedness with ambulation. Symptoms occur after walking about 100 yards or walking up 1/2 flight of stairs. Last night he wasn't able to sleep, so went outside for a walk. Developed CP, SOB, palpitations, and lightheadedness, followed by syncope. He fell and struck his right chest and right arm. He was unconscious; duration uncertain. Experiencing severe right-sided chest pain, worse with movement, coughing, deep breaths. Tried taking Percocet without much benefit. Came to ED today for evaluation. . Past Medical/Surgical History Chronic and Resolved Medical Problems: (1) Basal cell carcinoma Status: Chronic (2) Chronic neck pain Status: Chronic (3) COPD (chronic obstructive pulmonary disease) Status: Chronic (4) Depression Status: Chronic (5) History of adenomatous polyp of colon Status: Chronic (6) History of Hart's esophagus Status: Chronic (7) History of basal cell carcinoma Status: Chronic (8) History of Meckel's diverticulum Status: Chronic (9) History of suicide attempt Status: Chronic (10) HTN (hypertension) Status: Chronic Surgical Problems: (1) H/O hernia repair Status: Chronic (2) History of appendectomy Status: Chronic (3) History of colon resection Permanent Comment: for Meckel's Diverticulum repair Status: Chronic (4) Hx of cardiac cath Permanent Comment: 03/2014 - normal Status: Chronic (5) 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 Family History FH: CAD (coronary artery disease) FATHER TIAs FATHER Social History Smoking Status: Current Every Day Smoker Alcohol Use: socially Drug Use: none Marital Status: single Occupational Status: disabled Immunizations History of Influenza Vaccine: Yes Influenza Vaccine Date: Jun 30, 2015 History of Tetanus Vaccine?: Yes Tetanus Immunization Date: Mar 26, 2014 History of Pneumococcal: Yes Pneumococcal Date: Apr 07, 2014 Allergies Coded Allergies: Onion (Verified Allergy, Unknown, RASH AND GI UPSET, 05/29/17) Shellfish (Verified Adverse Reaction, Severe, ANAPHYLAXIS, 05/29/17) Captopril (Verified Adverse Reaction, Intermediate, "felt bad", 05/29/17) Codeine (Verified Adverse Reaction, Unknown, nausea; nightmares, 05/29/17) Home Medications Scheduled Ascorbic Acid (Vitamin C), 1,000 MG PO QAM Budesonide/Formoterol Fumarate (Symbicort 160/4.5 Inhaler ), 2 PUFFS INH BID Home O2 Therapy (Oxygen), 3 LITERS NA HS Hydrochlorothiazide (Hctz), 25 MG PO QAM Metoprolol Succ (Toprol Xl) (Toprol-Xl ), 100 MG PO QAM Multiple Vitamins W/ Minerals (Multi Vitamin and Mineral), 1 TABS PO DAILY Pantoprazole (Protonix), 40 MG PO QAM Paroxetine (Paxil), 20 MG PO DAILY Thiamine HCl (Vitamin B-1), 100 MG PO QAM Scheduled PRN Albuterol Hfa (Ventolin Hfa), 2 PUFFS INH QID PRN for Shortness of Breath Oxycodone/Acetaminophen 5MG/325MG (Percocet 5MG/325MG), 1 TABS PO Q6H PRN for Pain Zolpidem Tartrate (Ambien), 10 MG PO HS PRN for Sleep Review of Systems Constitutional: No fever, No weight loss Eyes: No worsening of vision, No diplopia ENT: No nasal symptoms, No sore throat Respiratory: + cough (yellow sputum), + shortness of breath Cardiovascular: + chest pain, + edema (ankle), + palpitations Abdomen: + diarrhea (2 wks ago, resolved), No pain, No nausea, No vomiting, No GI bleeding Musculoskeletal: + joint pain (chronic neck pain) Genitourinary - Male: + urinary hesitancy, No hematuria, No dysuria Neurologic: + problem reported (intermittent headaches) Endocrine: + fatigue, No excessive thirst, No excessive urination Hematologic / Lymphatic: + abnormal bleeding/bruising, No swollen lymph nodes Integumentary: + new/changing skin lesions (followed by Derm), No rash Physical Ex - H&P Physical Exam Vital Signs Date Time Temp Pulse Resp B/P (MAP) Pulse Ox O2 Delivery O2 Flow Rate FiO2 05/29/17 18:07 91 20 170/113 93 Room Air 05/29/17 15:44 88 22 175/117 93 Room Air 05/29/17 13:48 84 20 173/105 93 Room Air 05/29/17 13:47 72 05/29/17 13:21 94 Room Air 05/29/17 13:21 93 Room Air 05/29/17 12:08 36.7 71 22 167/85 95 Room Air General Appearance: WD/WN, + moderate distress Head: normocephalic, atraumatic Eyes: normal inspection, PERRL, EOMI, sclerae normal (conjunctivae pink) ENT: hearing grossly normal, pharynx normal Neck: supple, no adenopathy, thyroid normal, no JVD, trachea midline Respiratory/Chest: no respiratory distress, no accessory muscle use, + rhonchi (scattered), + wheezing (diffuse moderate), + pertinent finding (right chest- wall tenderness) Cardiovascular: regular rate, rhythm, no edema, no gallop, no JVD, + systolic murmur (II/ sys murmur base) Abdomen/GI: normal bowel sounds, non tender, soft, no organomegaly, no pulsatile mass Extremities/Musculoskelatal: normal inspection, no calf tenderness, no pedal edema, + pertinent finding (right forearm bandaged) Neurologic/Psych: receiving team member II-XII nml as tested (PERRL, EOMI, no facial palsy, no dyarthria), no motor/sensory deficits (motor strength upper and lower extremities grossly intact), alert, normal mood/affect, oriented x 3 Skin: normal color, warm/dry, no rash Lymphatic: no adenopathy (cervical) Diagnostics - H&P Diagnostics Laboratory Results Results Past 24 Hours Test 05/29/17 13:06 05/29/17 16:19 Range/Units White Blood Count 7.54 4.8-10.8 K/uL Red Blood Count 4.08 4.7-6.1 M/uL Hemoglobin 13.0 14.0-18.0 g/dL Hematocrit 39.8 42-52 % Mean Corpuscular Volume 97.5 80-100 fL Mean Corpuscular Hemoglobin 31.9 25-34 pg Mean Corpuscular Hemoglobin Concent 32.7 32-36 g/dl Platelet Count 289 130-400 K/uL Mean Platelet Volume 8.6 7.4-10.4 fL Neutrophils (%) (Auto) 81.8 % Lymphocytes (%) (Auto) 7.7 % Monocytes (%) (Auto) 9.4 % Eosinophils (%) (Auto) 0.3 % Basophils (%) (Auto) 0.4 % Neutrophils # (Auto) 6.17 1.4-6.5 K/uL Lymphocytes # (Auto) 0.58 1.2-3.4 K/uL Monocytes # (Auto) 0.71 0.11-0.59 K/uL Eosinophils # (Auto) 0.02 0-0.5 K/uL Basophils # (Auto) 0.03 0-0.2 K/uL RDW Standard Deviation 58.4 36.4-46.3 fL RDW Coefficient of Variation 16.5 11.5-14.5 % Immature Granulocyte % (Auto) 0.4 % Immature Granulocyte # (Auto) 0.03 0.00-0.02 K/uL Prothrombin Time 10.2 9.0-12.0 SECONDS Prothromb Time International Ratio 1.0 0.9-1.1 D-Dimer 600 0-500 ug/L FEU Sodium Level 139 136-145 mmol/L Potassium Level 3.7 3.5-5.1 mmol/L Chloride Level 102 98-107 mmol/L Carbon Dioxide Level 25 21-32 mmol/L Anion Gap 12.0 3-11 mmol/L Blood Urea Nitrogen 14 7-18 mg/dl Creatinine 0.85 0.60-1.40 mg/dl Est Creatinine Clear Calc Drug Dose 100.5 ml/min Estimated GFR () 107.5 Estimated GFR (Non- 92.7 BUN/Creatinine Ratio 15.9 10-20 Random Glucose 85 70-99 mg/dl Calcium Level 8.6 8.5-10.1 mg/dl Phosphorus Level 2.5 2.5-4.9 mg/dl Magnesium Level 2.1 1.8-2.4 mg/dl Total Bilirubin 0.8 0.2-1 mg/dl Direct Bilirubin 0.2 0-0.2 mg/dl Aspartate Amino Transf (AST/SGOT) 23 15-37 U/L Alanine Aminotransferase (ALT/SGPT) 18 12-78 U/L Alkaline Phosphatase 91 45-117 U/L Total Creatine Kinase 239 39-308 U/L Troponin I < 0.015 0-0.045 ng/ml Pro-B-Type Natriuretic Peptide 1324 0-900 pg/ml Total Protein 7.4 6.4-8.2 gm/dl Albumin 3.4 3.4-5.0 gm/dl Thyroid Stimulating Hormone (TSH) 1.260 0.300-4.500 uIu/ml Ethyl Alcohol mg/dL < 3.0 0-3 mg/dl Urine Color YELLOW Urine Appearance CLEAR CLEAR Urine pH 5.5 4.5-7.5 Urine Specific [place] 1.039 1.000-1.030 Urine Protein NEG NEG Urine Glucose (UA) NEG NEG Urine Ketones 1+ NEG Urine Occult Blood TRACE NEG Urine Nitrite NEG NEG Urine Bilirubin NEG NEG Urine Urobilinogen NEG NEG Urine Leukocyte Esterase NEG NEG Urine WBC (Auto) 0 0-5 /hpf Urine RBC (Auto) 0-4 0-4 /hpf Urine Hyaline Casts (Auto) 0 0-5 /lpf Urine Epithelial Cells (Auto) 0-5 0-5 /lpf Urine Bacteria (Auto) NEG NEG Urine Opiates Screen POS NEG Urine Methadone, Qualitative NEG NEG Urine Barbiturates NEG NEG Urine Phencyclidine (PCP) Level NEG NEG Ur Amphetamine/Methamphetamine NEG NEG MDMA (Ecstasy) Screen NEG NEG Urine Benzodiazepines Screen NEG NEG Urine Cocaine Metabolite NEG NEG Urine Marijuana (THC) POS NEG Diagnostic Radiology R RIBS UNILATERAL WITH PA CHEST FINDINGS: Cardiac mediastinal and hilar silhouettes are within normal limits. There is atherosclerosis of the aorta. Lungs are hyperinflated with mild background interstitial coarsening chronic. No pneumothorax, pleural effusion or focal airspace consolidation. Subsegmental scarring or atelectasis is again seen involving the lateral right lung base. Acute nondisplaced fractures involve the posterior lateral aspects of the right fifth, sixth, seventh and anterolateral 10th ribs. IMPRESSION: 1. Acute nondisplaced fractures involve the posterior lateral right fifth, sixth and seventh ribs and anterolateral right 10th rib. No pneumothorax. 2. Emphysema. The above report was generated using voice recognition software. It may contain grammatical, syntax or spelling errors. Electronically signed by: Des Olivier M.D. 05/29/2017 2:59 PM Dictated Date/Time: 05/29/2017 2:[address] OF THE HEAD WITHOUT CONTRAST FINDINGS: No acute intracranial hemorrhage, midline shift or mass effect is present. Ventricular system is normal. The basilar cisterns are patent. There are no extra-axial collections. Abreu-white differentiation is maintained. There are no findings to suggest acute dural sinus thrombosis or acute territorial infarct. Mild white matter hypodensities are unchanged and likely reflect small vessel disease. There is no calvarial fracture. Chronic left nasal bone deformity and soft tissue calcifications of the nose are unchanged. IMPRESSION: No acute intracranial findings. Electronically signed by: Bandar Martinez M.D. 05/29/2017 2:17 PM Dictated Date/Time: 05/29/2017 2:[address] ANGIOGRAM OF THE CHEST FINDINGS: Thyroid: Imaged portions of the thyroid gland are normal in size and attenuation. Thoracic aorta: There is atherosclerotic calcification of the thoracic aorta, which is normal in caliber and demonstrates standard 3-vessel arch anatomy. No dissection is seen. Pulmonary vasculature: The pulmonary trunk is dilated measuring 3.5 cm in diameter. This suggests pulmonary artery hypertension. There are no filling defects identified in main, lobar, or segmental pulmonary branches to suggest pulmonary embolus. Heart: The heart is normal in size and configuration, and without pericardial effusion. There are coronary artery calcifications. Lungs and pleural spaces: Evaluation of the lung parenchyma is degraded by respiratory motion artifact. Advanced emphysema is noted and there is biapical scarring. Layering secretions are present within the trachea and the right mainstem bronchus. There is trace right pleural effusion. No pleural effusion is seen on the left. There are tree-in-bud airspace opacities identified throughout the right lung, greatest at the right lung base. This is new from 02/01/2017. Minimal nodular airspace opacities are present in the left lower lobe. Mediastinum: There is no mediastinal lymphadenopathy. Sarah: Clear. Axillae: There is no axillary lymphadenopathy. Upper abdomen: There is asymmetric cortical atrophy of the right kidney as compared to the left. A 7.5 cm cyst arises from the upper pole of the left kidney. Additional subcentimeter renal cortical hypodensities also likely represent cysts but are too small for definitive characterization. A 3 cm cyst is seen in the left lobe of the liver. Additional hepatic hypodensities also likely represent cysts but are too small for definitive characterization. A moderate hiatal hernia is identified. Diverticula are noted in the partially imaged left colon. Skeletal structures: The skeletal structures are osteopenic. There are acute to subacute right lateral 6th and 7th rib fractures. Additional healed right-sided rib fractures are similar to previous. There are mild compression deformities of T6, T7, and T8. No lytic or blastic bony lesions are seen. IMPRESSION: 1. Streak and motion degraded examination. 2. There is no evidence of pulmonary embolus in the main, lobar, or segmental pulmonary arteries. 3. Advanced emphysema. 4. There are foci of tree-in-bud opacification seen throughout the right lung, greatest at the right lung base. Minimal similar opacities are seen at the left lung base. Layering secretions are present within the trachea and right mainstem bronchus and this suggests pneumonia/aspiration pneumonitis. Clinical correlation will be required. Follow-up CT scan in 3-4 months is recommended to document resolution. 5. Moderate hiatal hernia. 6. There are acute to subacute right lateral 6th and 7th rib fractures. 7. Additional findings as above. Electronically signed by: Orlando Caldwell M.D. 05/29/2017 4:23 PM Dictated Date/Time: 05/29/2017 4:11 PM . Impression - H&P Impression Assessment and Plan SYNCOPE Preceded by exertional dyspnea, chest pain, palpitations, lightheadedness. Echo February 2017 showed moderate aortic valve sclerosis without stenosis. Monitor for arrhythmias. Check orthostatic vital signs. EXERTIONAL CHEST PAIN Exertional chest pain associated with dyspnea. Cardiac cath OK in 2013. Doubt acute coronary syndrome. Check cardiac markers. Consider repeat stress testing if ongoing concerns. PALPITATIONS Associated with exertion. Monitor for arrhythmias. RIB FRACTURES Severe right-sided chest wall pain. Multiple rib fractures (right 6th and 7th per CT, right 5th, 6th, 7th, 10th per plain films). No pneumothorax. Incentive spirometry. Analgesics PRN. LACERATION RIGHT FOREARM 4 cm laceration right forearm. Tetanus booster up to date. Repaired in ED. Daily dressing changes. Sutures to be removed in 10 days. POSSIBLE PNEUMONIA Cough productive of yellow sputum. No infiltrates on chest x-ray, but CT demonstrates bibasilar opacities as well as layering secretions within trachea and mainstem bronchi suggesting aspiration. Check sputum gram stain, C&S. Rx with levofloxacin + piperacillin / tazobactam. F/U CT recommended. COPD Severe COPD. Nocturnal O2 prescribed, but not used for about 2 months due to equipment issues. Experiencing severe dyspnea on exertion. Possible pneumonia as discussed above. Continue Symbicort. Add levalbuterol / ipratropium nebs. Supplemental O2 as needed. Check 2-step O2 sats before discharge. SMOKING Continues to smoke. Smoking cessation counseling. HYPERTENSION Hold HCTZ due to orthostatic lightheadedness and syncope. Continue metoprolol. Follow and titrate Rx. HART'S ESOPHAGUS Continue pantoprazole. CHRONIC CERVICAL PAIN Continue analgesics PRN. DEPRESSION Continue paroxetine. HISTORY OF ALCOHOL USE Heavy drinking at times in the past, but not recently. Pt states that last drink was about 2 wks ago. Monitor for possible alcohol withdrawal. Continue thiamine. POOR FUNCTIONAL STATUS PT / OT evals. VTE PROPHYLAXIS Moderate risk for VTE. SQ heparin. Ambulate as able. DISPOSITION Admit to Telemetry Unit. Discharge disposition to be determined; may need skilled care or rehab. Consult Case Management. Family Medicine follow-up with Dr. Monroy. . VTE Prophylaxis Given or contraindicated: Unfractionated heparin SQ Physical Exam (per Admitting): General Appearance: WD/WN, + moderate distress Head: normocephalic, atraumatic Eyes: normal inspection, PERRL, EOMI, sclerae normal (conjunctivae pink) ENT: hearing grossly normal, pharynx normal Neck: supple, no adenopathy, thyroid normal, no JVD, trachea midline Respiratory/Chest: no respiratory distress, no accessory muscle use, + rhonchi (scattered), + wheezing (diffuse moderate), + pertinent finding (right chest-wall tenderness) Cardiovascular: regular rate, rhythm, no edema, no gallop, no JVD, + systolic murmur (II/ sys murmur base) Abdomen/GI: normal bowel sounds, non tender, soft, no organomegaly, no pulsatile mass Extremities/Musculoskelatal: normal inspection, no calf tenderness, no pedal edema, + pertinent finding (right forearm bandaged) Neurologic/Psych: receiving team member II-XII nml as tested (PERRL, EOMI, no facial palsy, no dyarthria), no motor/sensory deficits (motor strength upper and lower extremities grossly intact), alert, normal mood/affect, oriented x 3 Skin: normal color, warm/dry, no rash Lymphatic: no adenopathy (cervical) Hospital Course SYNCOPE/Exertional Chest pain Preceded by exertional dyspnea, chest pain, palpitations, lightheadedness. Echo February 2017 showed moderate aortic valve sclerosis without stenosis. Cardiac cath OK in 2013. Doubt acute coronary syndrome-Negative To.NO arrhythmia noted in Monitor. Consider repeat stress testing if ongoing concerns-denies any more chest pain/ pressure. Check orthostatic vital signs.-BP remains high No more episodes of syncope No Orthostasis Denies any more dizziness on Ambulation Denies any cardiac symptoms POSSIBLE PNEUMONIA Cough productive of yellow sputum. No infiltrates on chest x-ray, but CT demonstrates bibasilar opacities as well as layering secretions within trachea and mainstem bronchi suggesting aspiration. Check sputum gram stain, C&S-pending.-Scant normal irma Rx with levofloxacin + piperacillin / tazobactam. Will get follow up Chest X-ray /CT Change to Levaquin only CXR in AM -Hazy bilateral mid to lower lung reticulonodular opacities suggested , right greater than left, concerning for pneumonia or aspiration. Trace right pleural effusion. Will finish the course of antibiotics with anaerobic coverage Multiple RIB FRACTURES S/P Fall Severe right-sided chest wall pain. Multiple rib fractures (right 6th and 7th per CT, right 5th, 6th, 7th, 10th per plain films). No pneumothorax. Incentive spirometry. Analgesics PRN. pain is reasonably controlled Incentive Spirometry -doing better Uses Oxygen at home LACERATION RIGHT FOREARM 4 cm laceration right forearm. Tetanus booster up to date. Repaired in ED. Daily dressing changes. Sutures to be removed in 10 days.-can be taken out on 07/07/17 at PCPs visit COPD with Ongoing Smoking Severe COPD. Nocturnal O2 prescribed, but not used for about 2 months due to equipment issues. Experiencing severe dyspnea on exertion. Possible pneumonia as discussed above. Continue Symbicort.,Add levalbuterol / ipratropium nebs. Supplemental O2 as needed. Check 2-step O2 sat before discharge. Smoking cessation counseling. HYPERTENSION Hold HCTZ due to orthostatic lightheadedness and syncope. Continue metoprolol. Follow and titrate Rx BP is on the higher side. HART'S ESOPHAGUS Continue pantoprazole. CHRONIC CERVICAL PAIN Continue analgesics PRN. DEPRESSION Continue paroxetine. HISTORY OF ALCOHOL USE Heavy drinking at times in the past, but not recently. Pt states that last drink was about 2 wks ago. Monitor for possible alcohol withdrawal. Continue thiamine. VTE PROPHYLAXIS Moderate risk for VTE. SQ heparin. Ambulate as able. DISPOSITION Admit to Telemetry Unit. Discharge disposition to be determined; may need skilled care or rehab. Consult Case Management. Family Medicine follow-up with Dr. Monroy. PT/OT evaluation 2 steps before discharge-not needed as he uses oxygen at home Increase ambulation Likely to be discharged tomorrow CT of the Chest::1. Streak and motion degraded examination.. There is no evidence of pulmonary embolus in the main, lobar, or segmental pulmonary arteries. 3. Advanced emphysema. 4. There are foci of tree-in-bud opacification seen throughout the right lung, greatest at the right lung base. Minimal similar opacities are seen at the left lung base. Layering secretions are present within the trachea and right mainstem bronchus and this suggests pneumonia/aspiration pneumonitis. Clinical correlation will be required. Follow-up CT scan in 3-4 months is recommended to document resolution. 5. Moderate hiatal hernia. 6. There are acute to subacute right lateral 6th and 7th rib fractures. 7. Additional findings as above. Discharge today 06/04/17 Total time spent on discharge = 35 minutes This includes examination of the patient, discharge planning, medication reconciliation, and communication with other providers. Discharge Instructions Date of Service Jun 03, 2017. Admission Reason for Admission: Syncope Discharge Discharge Diagnosis / Problem: Syncope-no apparent cause,Fall with multiple ribs fracture,COPD,Pneumonia Discharge Goals Goal(s): Prevent Disease Progression Activity Recommendations Activity Limitations: resume your previous activity . Instructions / Follow-Up Instructions / Follow-Up Dr Monroy on 06/06/17 at 10:25 AM.Removal of stitches Current Hospital Diet Patient's current hospital diet: AHA Diet (Heart Healthy) Discharge Diet Recommended Diet: AHA Diet (Heart Healthy) Pending Studies Studies pending at discharge: no Medical Emergencies . Who to Call and When: Medical Emergencies: If at any time you feel your situation is an emergency, please call 911 immediately. . Non-Emergent Contact Non-Emergency issues call your: Primary Care Provider . 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 "Provider Documentation" section prepared by Claudia Sanabria. . VTE Core Measure Inpt VTE Proph given/why not?: Unfractionated heparin SQ <Electronically signed by Claudia Sanabria M.D.> Signed: 06/03/17 [id number] Additional Copies To Zach Monroy M.D.
== END 2017-06-04 14:26 | disposition home or self-care (01) | DRG 312 ==
LOC: C.EDB 12:07 → C.MED 18:21 → ENRESERV 18:31 → C.MED 23:45
PROVIDERS: ADMIT Hospitalist; ATTEND Internal Medicine
PROC: 0HQDXZZ Repair Right Lower Arm Skin, External Approach (ICD-10-PCS; principal; 2017-05-29)
DX: R55 Syncope and collapse (principal); J18.9 Pneumonia, unspecified organism; S22.41XA Multiple fractures of ribs, right side, initial encounter for closed fracture; S51.811A Laceration without foreign body of right forearm, initial encounter; I10 Essential (primary) hypertension; F32.9 Major depressive disorder, single episode, unspecified; J44.9 Chronic obstructive pulmonary disease, unspecified; K22.70 Barrett's esophagus without dysplasia; M54.2 Cervicalgia; G89.29 Other chronic pain; Z79.899 Other long term (current) drug therapy; W19.XXXA Unspecified fall, initial encounter; F17.200 Nicotine dependence, unspecified, uncomplicated

== ENCOUNTER 2017-07-16 11:11 | Inpatient (IN) | payer OTHER ==
[~2017-07-16] VITALS: Ht 185.4 cm; Wt 89.5 kg
[~2017-07-16 11:11] MED LIST changes: -ANT25 PO; -ASCA500 PO; +ASPI1CHW12 PO; +FLUT1INH INH; -FLV1 PO; -HYDR25TA4 PO; +MELO7.5T6 PO; +METO100T44 PO; -METO1TAB69 PO; +MTR500 PO; -MULT-1042 PO; +NRV5 PO; +OXYC-57 PO; +PARO1TAB27 PO; +PRED10TA PO; -SYMIN160 INH; -THM100 PO; +ULT50X PO
[2017-07-16] MEDS ORDERED: ONDANSETRON INJ 2 MG/ML 2 ML VIAL IV STA (11:57)
[2017-07-16] MEDS ORDERED: SODIUM CHLORIDE 0.9% 1000ML 2,000 ML IV STA (11:57)
[2017-07-16] MEDS ORDERED: MoRPHine SULFATE 4 MG/ML 1 ML CARP\\VIAL IV STA ×2 (11:57→12:54)
[2017-07-16 12:51] LABS: HEMATOCRIT 33.5 % (42-52); MEAN CELL VOLUME 94.6 fL (80-100); MEAN CORPUSCULAR HEMOGLOBIN 31.1 pg (25-34); MEAN CORPUSCULAR HGB CONC 32.8 g/dl (32-36); MEAN PLATELET VOLUME 9.1 fL (7.4-10.4); PLATELET COUNT 316 K/uL (130-400); RED CELL DISTRIBUTION WIDTH CV 15.5 % (11.5-14.5); RED CELL DISTRIBUTION WIDTH SD 53.7 fL (36.4-46.3); WHITE BLOOD COUNT 13.25 K/uL (4.8-10.8)
[2017-07-16 13:12] LABS: BASO % 0.1 %; BASO ABS # 0.01 K/uL (0-0.2); EOS % 0.5 %; EOS ABS # 0.07 K/uL (0-0.5); IG# 0.07 K/uL (0.00-0.02); LYMPH % 8.9 %; LYMPH ABS # 1.18 K/uL (1.2-3.4); MONO % 4.5 %; NEUT % 85.5 %; NEUT ABS # 11.32 K/uL (1.4-6.5)
[2017-07-16 13:14] LABS: ALBUMIN 2.4 gm/dl (3.4-5.0); ALT/SGPT 14 U/L (12-78); AST/SGOT 8 U/L (15-37); BLOOD UREA NITROGEN 16 mg/dl (7-18); CALCIUM 8.8 mg/dl (8.5-10.1); CARBON DIOXIDE 28 mmol/L (21-32); CREATININE 0.97 mg/dl (0.60-1.40); GLUCOSE 97 mg/dl (70-99); LIPASE 146 U/L (73-393); POTASSIUM 3.6 mmol/L (3.5-5.1); SODIUM 138 mmol/L (136-145)
[2017-07-16 13:17] LABS: ALKALINE PHOSPHATASE 96 U/L (45-117); TOTAL PROTEIN 7.1 gm/dl (6.4-8.2)
[2017-07-16] MEDS ORDERED: OPTIRAY 320 IV PRN (14:00)
[2017-07-16] MEDS ORDERED: VANCOMYCIN HCL 125 MG/2.5ML SOLN PO STA (14:07)
--- NOTE | 2017-07-16 14:10 | DIAGNOSTIC IMAGING REPORT ---
CT SCAN OF THE ABDOMEN AND PELVIS WITH IV CONTRAST CLINICAL HISTORY: Generalized abdominal pain. Chronic diarrhea. COMPARISON STUDY: Abdominal CT dated 06/24/2017 and 03/29/2016. TECHNIQUE: Following the IV administration of 94 cc of Optiray 320, CT scan of the abdomen and pelvis is performed from the lung bases to the proximal femora. Images are reviewed in the axial, sagittal, and coronal planes. IV contrast was administered without complication. A dose lowering technique was utilized adhering to the principles of ALARA. CT DOSE: 484.44 mGy.cm FINDINGS: Lung bases: The heart is normal in size and without pericardial effusion. Advanced emphysematous change is present at the lung bases. There are foci of patchy nodularity with tree-in-bud airspace opacities seen at both lung bases. No pleural effusion is seen. There is a tiny hiatal hernia. Liver: The contrast-enhanced liver is normal in size, contour, and attenuation. There is no intrahepatic biliary ductal dilatation. The hepatic veins and portal veins are patent. Scattered hepatic cysts measure up to 4.7 cm. Additional subcentimeter hepatic hypodensities also likely represent cysts but are too small for definitive characterization. Gallbladder: Layering gallstones are suggested in the fundal region. There is no CT evidence of acute cholecystitis. Spleen: Normal in size and attenuation. Pancreas: Unremarkable. Adrenal glands: Unremarkable. Kidneys: The right kidney is normal in size. There is asymmetric atrophy of the right kidney, with significant scarring in the right lower pole. No hydronephrosis is seen. The kidneys enhance symmetrically. A 7 cm cyst arises from the upper pole of the left kidney. Additional subcentimeter cortical hypodensities also likely represent cysts but are too small for definitive characterization. Abdominal vasculature: The abdominal aorta is normal in course and caliber noting moderate atherosclerotic calcification. Bowel: There is mild colonic diverticulosis without CT evidence of acute diverticulitis. No bowel obstruction is identified. There is diffuse mucosal thickening and edema identified throughout the colon with mild pericolonic inflammation. The appearance is consistent with a nonspecific pancolitis. The appendix is not identified and reported surgically absent. Peritoneum: There is no intraperitoneal free air or abdominal ascites. There is a fat-containing umbilical hernia. Lymphadenopathy: None. Pelvic viscera: The prostate gland is heterogeneous. The bladder is decompressed and grossly unremarkable. Skeletal structures: The skeletal structures are osteopenic. There is mild to moderate lumbosacral spondylosis. No lytic or blastic lesions are seen. IMPRESSION: 1. Findings are consistent with a nonspecific pancolitis, likely on an infectious or inflammatory basis. Clinical correlation will be required. 2. Advanced emphysema. 3. Foci of patchy nodularity with tree-in-bud opacities are again seen at both lung bases. This likely represents an infectious/inflammatory pneumonitis and may be chronic. Clinical correlation will be required. Follow-up as clinically needed. 4. Suspect cholelithiasis. 5. Additional findings as above. Electronically signed by: Orlando Caldwell M.D. 07/16/2017 2:08 PM Dictated Date/Time: 07/16/2017 1:58 PM
[2017-07-16] MEDS ORDERED: HYDROmorphone INJ 0.5 MG/0.5 ML SYR IV STA (14:31)
--- NOTE | 2017-07-16 15:27 | EMERGENCY ROOM VISIT NOTE ---
History Report prepared by Pedro Luis: Colette Gonzales Under the Supervision of: An SavageO. First contact with patient: 11:33 Chief Complaint: DIARRHEA Stated Complaint: EXTREME DIARRHEA SINCE 05/27, PASSED OUT 3 TIMES Nursing Triage Summary: Diffuse abdominal pain, diarrhea x2 months, recently dx with pnx, feels like he still has it, dizzy, syncope x3 in the past two days, left arm numbness, and chest pain. History of Present Illness The patient is a 61 year old male who presents to the Emergency Room with complaints of multiple syncopal events over the last several days. He currently rates his discomfort as a 10/10 in severity. The patient states that within the last four days he has had three syncopal episodes. He has had multiple of these episodes before in the past. He notes they never found out why these occurred. He states that each time he stands and moves, he becomes short of breath, dizzy, develops chest pain, and tachycardia. The patient states that he is unsure why this is happening. He additionally reports severe abdominal pain and explosive diarrhea for the past two months. Abdominal pain has been worsening over the past several days. He describes it as a crampy abdominal pain. Essentially with nausea but no vomiting. He has had profuse diarrhea prior to arrival. He also complains of neck pain. He does note that this is not new. Recent/previous diagnosis of C. difficile. He notes that this cough has been slightly worse recently. Has a new change in sputum. Source of History: patient Onset: last several days Position: other (global) Symptom Intensity: 10/10 Quality: other (syncopal episodes) Timing: other (sudden) Associated Symptoms: + LOC, + chest pain, + SOB, + abdominal pain, + diarrhea Note: Associated Symptoms: dizzy, tachycardia Review of Systems See HPI for pertinent positives & negatives. A total of 10 systems reviewed and were otherwise negative. 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 Social History Problems: (1) Alcohol abuse Family History FH: CAD (coronary artery disease) FATHER TIAs FATHER Social History Smoking Status: Current Every Day Smoker Alcohol Use: occasionally Drug Use: none Marital Status: single Housing Status: lives alone Occupation Status: disabled Current/Historical Medications Scheduled Amlodipine Besylate (Amlodipine Besylate), 10 MG PO QAM Aspirin (Aspirin 81 Low Dose), 1 TAB PO DAILY Fluticasone Furoate-Vilanterol (Breo Ellipta), 1 PUFF INH DAILY Home O2 Therapy (Oxygen), 4 LITERS NA HS Metoprolol Succ (Toprol Xl) (Toprol-Xl ), 100 MG PO QAM Pantoprazole (Protonix), 40 MG PO QAM Paroxetine (Paxil), 20 MG PO DAILY Scheduled PRN Albuterol Hfa (Ventolin Hfa), 2 PUFFS INH QID PRN for Shortness of Breath Meloxicam (Mobic), 7.5 MG PO DAILY PRN for Pain Oxycodone/Acetaminophen 5MG/325MG (Percocet 5MG/325MG), 1 TABS PO q4-6h PRN for Pain Zolpidem Tartrate (Ambien), 10 MG PO HS PRN for Sleep Allergies Coded Allergies: Shellfish (Verified Allergy, Severe, SOB & SWOLLEN GLANDS FROM SHELLFISH, 07/16/17) Onion (Verified Allergy, Unknown, RASH AND GI UPSET, 07/16/17) Captopril (Verified Adverse Reaction, Intermediate, "felt bad", 07/16/17) Codeine (Verified Adverse Reaction, Unknown, nausea; nightmares, 07/16/17) Physical Exam Vital Signs Date Time Temp Pulse Resp B/P (MAP) Pulse Ox O2 Delivery O2 Flow Rate FiO2 07/16/17 14:30 119 20 131/86 86 Room Air 07/16/17 13:07 132 20 125/71 95 Room Air 07/16/17 12:30 135 20 123/84 93 Room Air 07/16/17 12:11 116 07/16/17 11:26 36.3 145 20 98 Room Air Physical Exam GENERAL: Sitting up in wheelchair, ill appearing, in mild distress holding abdomen, alert, well nourished, non-toxic EYE EXAM: normal conjunctiva. OROPHARYNX: no exudate, no erythema, lips, buccal mucosa, and tongue normal and mucous membranes are moist NECK: supple, no nuchal rigidity, no adenopathy, non-tender LUNGS: Clear to auscultation. Normal chest wall mechanics HEART: no murmurs, S1 normal and S2 normal ABDOMEN: abdomen soft, non-tender, normo-active bowel sounds, no masses, no rebound or guarding. BACK: Back is symmetrical on inspection and there is no deformity, no midline tenderness, no CVA tenderness. SKIN: no rashes and no bruising UPPER EXTREMITIES: upper extremities are grossly normal. LOWER EXTREMITIES: No pitting edema. NEURO EXAM: Normal sensorium, cranial nerves II-XII grossly intact, normal speech, no gross weakness of arms, no gross weakness of legs. Medical Decision & Procedures ER Provider Diagnostic Interpretation: Radiology results as stated below per my review and the radiologist's interpretation: CT SCAN OF THE ABDOMEN AND PELVIS WITH IV CONTRAST CLINICAL HISTORY: Generalized abdominal pain. Chronic diarrhea. COMPARISON STUDY: Abdominal CT dated 06/24/2017 and 03/29/2016. TECHNIQUE: Following the IV administration of 94 cc of Optiray 320, CT scan of the abdomen and pelvis is performed from the lung bases to the proximal femora. Images are reviewed in the axial, sagittal, and coronal planes. IV contrast was administered without complication. A dose lowering technique was utilized adhering to the principles of ALARA. CT DOSE: 484.44 mGy.cm FINDINGS: Lung bases: The heart is normal in size and without pericardial effusion. Advanced emphysematous change is present at the lung bases. There are foci of patchy nodularity with tree-in-bud airspace opacities seen at both lung bases. No pleural effusion is seen. There is a tiny hiatal hernia. Liver: The contrast-enhanced liver is normal in size, contour, and attenuation. There is no intrahepatic biliary ductal dilatation. The hepatic veins and portal veins are patent. Scattered hepatic cysts measure up to 4.7 cm. Additional subcentimeter hepatic hypodensities also likely represent cysts but are too small for definitive characterization. Gallbladder: Layering gallstones are suggested in the fundal region. There is no CT evidence of acute cholecystitis. Spleen: Normal in size and attenuation. Pancreas: Unremarkable. Adrenal glands: Unremarkable. Kidneys: The right kidney is normal in size. There is asymmetric atrophy of the right kidney, with significant scarring in the right lower pole. No hydronephrosis is seen. The kidneys enhance symmetrically. A 7 cm cyst arises from the upper pole of the left kidney. Additional subcentimeter cortical hypodensities also likely represent cysts but are too small for definitive characterization. Abdominal vasculature: The abdominal aorta is normal in course and caliber noting moderate atherosclerotic calcification. Bowel: There is mild colonic diverticulosis without CT evidence of acute diverticulitis. No bowel obstruction is identified. There is diffuse mucosal thickening and edema identified throughout the colon with mild pericolonic inflammation. The appearance is consistent with a nonspecific pancolitis. The appendix is not identified and reported surgically absent. Peritoneum: There is no intraperitoneal free air or abdominal ascites. There is a fat-containing umbilical hernia. Lymphadenopathy: None. Pelvic viscera: The prostate gland is heterogeneous. The bladder is decompressed and grossly unremarkable. Skeletal structures: The skeletal structures are osteopenic. There is mild to moderate lumbosacral spondylosis. No lytic or blastic lesions are seen. IMPRESSION: 1. Findings are consistent with a nonspecific pancolitis, likely on an infectious or inflammatory basis. Clinical correlation will be required. 2. Advanced emphysema. 3. Foci of patchy nodularity with tree-in-bud opacities are again seen at both lung bases. This likely represents an infectious/inflammatory pneumonitis and may be chronic. Clinical correlation will be required. Follow-up as clinically needed. 4. Suspect cholelithiasis. 5. Additional findings as above. Electronically signed by: Orlando Caldwell M.D. 07/16/2017 2:08 PM Dictated Date/Time: 07/16/2017 1:58 PM Laboratory Results 07/16/17 12:34 Red Blood Count 3.54, Mean Corpuscular Volume 94.6, Mean Corpuscular Hemoglobin 31.1, Mean Corpuscular Hemoglobin Concent 32.8, Mean Platelet Volume 9.1, Neutrophils (%) (Auto) 85.5, Lymphocytes (%) (Auto) 8.9, Monocytes (%) (Auto) 4.5, Eosinophils (%) (Auto) 0.5, Basophils (%) (Auto) 0.1, Neutrophils # (Auto) 11.32, Lymphocytes # (Auto) 1.18, Monocytes # (Auto) 0.60, Eosinophils # (Auto) 0.07, Basophils # (Auto) 0.01 07/16/17 12:34 Test 07/16/17 12:34 White Blood Count 13.25 K/uL (4.8-10.8) Red Blood Count 3.54 M/uL (4.7-6.1) Hemoglobin 11.0 g/dL (14.0-18.0) Hematocrit 33.5 % (42-52) Mean Corpuscular Volume 94.6 fL (80-100) Mean Corpuscular Hemoglobin 31.1 pg (25-34) Mean Corpuscular Hemoglobin Concent 32.8 g/dl (32-36) Platelet Count 316 K/uL (130-400) Mean Platelet Volume 9.1 fL (7.4-10.4) Neutrophils (%) (Auto) 85.5 % Lymphocytes (%) (Auto) 8.9 % Monocytes (%) (Auto) 4.5 % Eosinophils (%) (Auto) 0.5 % Basophils (%) (Auto) 0.1 % Neutrophils # (Auto) 11.32 K/uL (1.4-6.5) Lymphocytes # (Auto) 1.18 K/uL (1.2-3.4) Monocytes # (Auto) 0.60 K/uL (0.11-0.59) Eosinophils # (Auto) 0.07 K/uL (0-0.5) Basophils # (Auto) 0.01 K/uL (0-0.2) RDW Standard Deviation 53.7 fL (36.4-46.3) RDW Coefficient of Variation 15.5 % (11.5-14.5) Immature Granulocyte % (Auto) 0.5 % Immature Granulocyte # (Auto) 0.07 K/uL (0.00-0.02) Toxic Granulation 1+ Dohle Bodies 1+ Hypochromasia PRESENT Anion Gap 7.0 mmol/L (3-11) Est Creatinine Clear Calc Drug Dose 88.1 ml/min Estimated GFR () 95.9 Estimated GFR (Non- 82.7 BUN/Creatinine Ratio 16.4 (10-20) Calcium Level 8.8 mg/dl (8.5-10.1) Total Bilirubin 0.3 mg/dl (0.2-1) Direct Bilirubin < 0.1 mg/dl (0-0.2) Aspartate Amino Transf (AST/SGOT) 8 U/L (15-37) Alanine Aminotransferase (ALT/SGPT) 14 U/L (12-78) Alkaline Phosphatase 96 U/L (45-117) Troponin I < 0.015 ng/ml (0-0.045) Total Protein 7.1 gm/dl (6.4-8.2) Albumin 2.4 gm/dl (3.4-5.0) Lipase 146 U/L (73-393) Laboratory results per my review. Medications Administered Medications (Trade) Dose Ordered Sig/Tyree Route Start Time Stop Time Status Last Admin Dose Admin Sodium Chloride 2,000 ml @ 999 mls/hr Q2H1M STAT IV 07/16/17 11:57 07/16/17 13:57 DC 07/16/17 12:41 999 MLS/HR Ondansetron HCl (Zofran Inj) 4 mg NOW STAT IV 07/16/17 11:57 07/16/17 11:58 DC 07/16/17 12:41 4 MG Morphine Sulfate (MoRPHine SULFATE INJ) 4 mg NOW STAT IV 07/16/17 11:57 07/16/17 11:58 DC 07/16/17 12:41 4 MG Morphine Sulfate (MoRPHine SULFATE INJ) 4 mg NOW STAT IV 07/16/17 12:54 07/16/17 12:55 DC 07/16/17 13:06 4 MG Vancomycin HCl (Vancomycin Oral Soln) 125 mg NOW STAT PO 07/16/17 14:07 07/16/17 14:08 DC 07/16/17 14:42 125 MG Hydromorphone HCl (Dilaudid Inj) 0.5 mg NOW STAT IV 07/16/17 14:31 07/16/17 14:32 DC 07/16/17 14:43 0.5 MG ECG Indication: chest pain, SOB/dyspnea Rate (beats per minute): 140 Rhythm: sinus tachycardia Findings: Q waves (Septal, inferior), other (poor baseline) Comparison ECG Date: 06/24/17 Change: no significant change ED Course ED COURSE: Vital signs were reviewed and showed tachycardic The patients medical record was reviewed The above diagnostic studies were performed and reviewed. ED treatments and interventions as stated above. 1139: The patient was evaluated in room A9B. A complete history and physical examination was performed. 1157: Ordered Morphine Sulfate 4 mg IV, Zofran Inj 4 mg IV, Sodium Chloride 2000 ml @ 999 mls/hr IV. 1254: Ordered Morphine Sulfate 4 mg IV. 1407: Ordered Vancomycin HCl 125 mg PO. 1416: Upon reevaluation, the patient is resting.I discussed my findings with the patient and he understands and agrees with the treatment plan. Based on the patients age, coexisting illnesses, exam and lab findings the decision to treat as an inpatient was made. The patient remained stable while under my care. The patient will be evaluated for further management. 1430: I discussed the patients case with Elly Del Rosario. He is going to evaluate the patient for further treatment. 1431: Ordered Dilaudid Inj 0.5 mg IV. Medical Decision Differential diagnosis includes etiologies such as vasovagal event, infection, hypoglycemia, electrolyte abnormalities, cardiac sources, intracerebral event, toxicologic, neurologic, as well as others were entertained. Patient is a 61-year-old male who presents to ER for multiple complaints. He notes he is complaining of being extremely weak associated with 3-4 episodes of syncope, chest pain, shortness breath, nausea, diarrhea and diffuse severe abdominal pain. He also complains of neck pain as well. On exam patient notes that the neck pain is not new or change. Abdominal pain he does admit is the worst of his complaints and is new. He was complaining of perfuse diarrhea. Previous diagnosis of C. difficile. Labs show a mild leukocytosis of 13,000. No significant anemia. BMP all LFTs, bilirubin and lipase is unremarkable. Troponin was negative. TSH is pending. EKG although poor baseline shows no ischemia. Does showed sinus tachycardia. CT of the abdomen and pelvis confirms a pancolitis. I do favor this is likely secondary to recurrent C. difficile infection and it does fit his presentation. I ordered 2 L normal saline. He did receive 2 doses of morphine and 1 of Dilaudid. Chest x-ray shows an infiltrate in the right upper lobe. This is new from previous chest x- ray. Patient was covered with IV Zosyn and Levaquin. Updated patient. He was agitated in regards to taking additional antibiotics as this likely causes initial C. difficile. I explained this to him at length that he needs antibiotics. He was eventually agreeable. He was hypoxic at 86% following multiple doses of narcotics. He is placed on his home O2 of 3 L. Previous CTAs of the chest was reviewed with his last one being on 06/25/2017 which was negative for PE. Discussed with internal medicine for admission secondary to pneumonia and pancolitis secondary to C. difficile with dehydration as his heart rate is trending down to the 110s from 140s following 1 L of normal saline with additional liter to go. Favor the tachycardia again is likely secondary to the dehydration from the C. difficile and persistent diarrhea along with the infection from C. difficile and pneumonia. Will not pursue PE at this time. Medication Reconcilliation Current Medication List: was personally reviewed by me Blood Pressure Screening Patient's blood pressure: Normal blood pressure Blood pressure disposition: Did not require urgent referral Consults Time Called: 1416 Consulting Physician: Elly Del Rosario Returned Call: 1430 I discussed the patients case with Elly Del Rosario. He is going to evaluate the patient for further treatment. Impression Primary Impression: Pneumonia Additional Impressions: Pancolitis C. difficile colitis Syncope Tachycardia Scribe Attestation The scribe's documentation has been prepared under my direction and personally reviewed by me in its entirety. I confirm that the note above accurately reflects all work, treatment, procedures, and medical decision making performed by me. Departure Information Dispostion Being Evaluated By Hospitalist Referrals Zach Monroy M.D. (PCP) Problem Qualifiers Primary Impression: Pneumonia Pneumonia type: due to unspecified organism Laterality: unspecified laterality Lung location: unspecified part of lung Qualified Codes: J18.9 - Pneumonia, unspecified organism Additional Impressions: Syncope Syncope type: unspecified Qualified Codes: R55 - Syncope and collapse
[2017-07-16] MEDS ORDERED: LEVAQUIN 750MG / 150ML D5W IV STA (15:42)
[2017-07-16] MEDS ORDERED: PIPERACILLIN/TAZOBACTAM 3.375 GM/100ML D5W IV STA (15:42)
--- NOTE | 2017-07-16 15:53 | DIAGNOSTIC IMAGING REPORT ---
CHEST ONE VIEW PORTABLE CLINICAL HISTORY: syncope COMPARISON STUDY: 06/24/2017 FINDINGS: The chest has an emphysematous configuration. The heart is normal in size. Since the prior study, the patient has developed patchy airspace opacities within the right lung apex and right lung base. The findings are suspicious for pneumonia. No pleural effusions are visualized. Clinical and radiographic follow-up is recommended.[ IMPRESSION: 1. Emphysema 2. Interval development of right upper lung zone and right lower lung zone airspace opacities suspicious for a multifocal pneumonia. Imaging subsequent to treatment is recommended in follow-up Electronically signed by: Martinez Garcia M.D. 07/16/2017 3:51 PM Dictated Date/Time: 07/16/2017 3:50 PM
[2017-07-16] MEDS ORDERED: HYDROmorphone INJ 0.5 MG/0.5 ML SYR IV PRN (16:00)
[2017-07-16] MEDS ORDERED: SODIUM CHLORIDE 0.9% 1000ML 1,000 ML IV SCH (16:00)
[2017-07-16] MEDS ORDERED: LEVALBUTEROL 0.63MG/3 ML NEB INH PRN (16:15)
[2017-07-16] MEDS ORDERED: ONDANSETRON INJ 2 MG/ML 2 ML VIAL IV PRN (17:15)
[2017-07-16 17:55] VITALS: BP 110/80; PULSE 119; TEMP 36.5; O2SAT 94; Ht 185.4 cm; Wt 89.5 kg
--- NOTE | 2017-07-16 17:59 | History and Physical ---
History & Physical Date & Time of Service: Jul 16, 2017 at 16:10 Chief Complaint: Extreme Diarrhea Since 05/27, Passed Out 3 Times Primary Care Physician: Zach Monroy M.D. History of Present Illness Source: patient, family, clinic records, hospital records Pt is 61 y/o M with PMH COPD, insomnia, depression, HTN, Hart's esophagus, chronic back and neck pain presented to ER with c/o diarrhea x 10-12 days. Pt reports hx syncope episodes over the past year. States "blacks out" intermittently, sometimes occurs with standing. Hx hospital admission 05/29/17- for syncope, COPD, rib fractures, pneumonia and was treated with Levaquin. Hx admission 06/24/17-06/25/17 for SOB, CP, syncope, rib fx, C-Diff. Was treated with Flagyl x 10 days. Pt states diarrhea initially improved, until recently. States past 10-12 days with watery non-bloody diarrhea which has worsened with increased episodes over past couple of days. Pt unable to clarify how many episodes "a lot". Also c/o decreased appetite, hasn't been eating or drinking much past several days. C/O lower abdominal pain describes as aching/ cramping and squeezing type pain. Hx COPD and has chronic SOB, chronic cough of clear to white/yellow sputum. Denies any increased sputum or worsening cough or SOB. Uses albuterol 2-4 times a day, which has not increased recently. uses home O2 @3L HS. States nose is dry and sore inside. Denies CP since last hospital admission. Hx intermittent LE edema, pt had negative DVT study last admission. Pt states today no LE edema. denies leg pain. Hx laceration to R forearm and had dehiscence after sutures removed, seen by wound- Dr Cooper in previous admission. Pt states area continues to be not healed and has intermittent discharge from area. Denies surrounding erythema or edema or red streaking. Denies fever/chills, diaphoresis, N/V, ZEPEDA, dizziness, syncope, vision changes, orthopnea, palpitations, sore throat, choking, otalgia, rhinorrhea, epistaxis, paresthesias, weakness, extremity weakness, urinary symptoms. ECHO: 06/25/17: EF: 55-60%, aortic sclerosis without aortic stenosis In ER today: Temp: 36.3C, P: 145 down to 120, R: 20, BP: 125/71, O2: 95% on RA. WBC: 13.2, H/H 11/33.5 (hgb 13-11 in past 2 months), K: 3.6, lipase: 146. Troponin negative. EKG tachy [address] abd/pelvis: nonspecific pancolitis. pt given vancomycin 125mg po, 2 L NSS, morphine 8m IV, dilaudid 0.5mg, zofran 4mg. Past Medical/Surgical History Medical Problems: (1) Basal cell carcinoma Status: Chronic (2) Chronic neck pain Status: Chronic (3) COPD (chronic obstructive pulmonary disease) Status: Chronic (4) Depression Status: Chronic (5) History of adenomatous polyp of colon Status: Chronic (6) History of Hart's esophagus Status: Chronic (7) History of basal cell carcinoma Status: Chronic (8) History of Meckel's diverticulum Status: Chronic (9) History of suicide attempt Status: Chronic (10) HTN (hypertension) Status: Chronic (11) Hx of skin graft Permanent Comment: 2014 -nose for basal cell carcinoma Status: Resolved Surgical Problems: (1) H/O hernia repair Status: Chronic (2) History of appendectomy Status: Chronic (3) History of colon resection Permanent Comment: for Meckel's Diverticulum repair Status: Chronic (4) Hx of cardiac cath Permanent Comment: 03/2014 - normal Status: Chronic (5) 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 smoked 0.25ppd x 40 years) Smokeless Tobacco Use: No Alcohol Use: none for past year Drug Use: none Marital Status: single Housing status: lives alone Occupational Status: disabled Immunizations History of Influenza Vaccine: Yes Influenza Vaccine Date: Jun 30, 2015 History of Tetanus Vaccine?: Yes Tetanus Immunization Date: Mar 26, 2014 History of Pneumococcal: Yes Pneumococcal Date: Apr 07, 2014 Allergies Coded Allergies: Shellfish (Verified Allergy, Severe, SOB & SWOLLEN GLANDS FROM SHELLFISH, 07/16/17) Onion (Verified Allergy, Unknown, RASH AND GI UPSET, 07/16/17) Captopril (Verified Adverse Reaction, Intermediate, "felt bad", 07/16/17) Codeine (Verified Adverse Reaction, Unknown, nausea; nightmares, 07/16/17) Home Medications Scheduled Amlodipine Besylate (Amlodipine Besylate), 10 MG PO QAM Aspirin (Aspirin 81 Low Dose), 1 TAB PO DAILY Fluticasone Furoate-Vilanterol (Breo Ellipta), 1 PUFF INH DAILY Home O2 Therapy (Oxygen), 3 LITERS NA HS Metoprolol Succ (Toprol Xl) (Toprol-Xl ), 100 MG PO QAM Pantoprazole (Protonix), 40 MG PO QAM Paroxetine (Paxil), 20 MG PO DAILY Scheduled PRN Albuterol Hfa (Ventolin Hfa), 2 PUFFS INH QID PRN for Shortness of Breath Meloxicam (Mobic), 7.5 MG PO DAILY PRN for Pain Oxycodone/Acetaminophen 5MG/325MG (Percocet 5MG/325MG), 1 TABS PO q4-6h PRN for Pain Zolpidem Tartrate (Ambien), 10 MG PO HS PRN for Sleep Review of Systems Constitutional: No weight loss Eyes: No eye pain, No redness, No discharge ENT: No unusual epistaxis, No sore throat, No trouble swallowing Respiratory: + problem reported (See HPI), No wheezing, No hemoptysis Cardiovascular: No PND, No claudication Abdomen: + problem reported (see HPI) Musculoskeletal: + problem reported (see HPI), No calf pain Neurologic: No weakness, No numbness/tingling, No vertigo Psychiatric: + depression symptoms (hx depression, on paxil. denies suicidal/ homicidal ideations), + insomnia, No anxiety Integumentary: + problem reported (See HPI), No rash Physical Exam Vital Signs Date Time Temp Pulse Resp B/P (MAP) Pulse Ox O2 Delivery O2 Flow Rate FiO2 07/16/17 14:30 119 20 131/86 86 Room Air 07/16/17 13:07 132 20 125/71 95 Room Air 07/16/17 12:30 135 20 123/84 93 Room Air 07/16/17 12:11 116 07/16/17 11:26 36.3 145 20 98 Room Air General Appearance: WD/WN, no apparent distress Head: normocephalic, atraumatic Eyes: normal inspection, PERRL, EOMI, sclerae normal ENT: hearing grossly normal, pharynx normal, + pertinent finding (dry mucous membranes. nares bilaterally with small scabs, no epistaxis) Neck: supple, no JVD, no carotid bruits Respiratory/Chest: chest non-tender, no respiratory distress, no accessory muscle use, + decreased breath sounds (throughout, no wheezing, rales or rhonchi noted) Cardiovascular: no murmur, normal peripheral pulses, + tachycardia Abdomen/GI: normal bowel sounds, soft, + tenderness (moderate to LLQ with guarding, no rebound ) Extremities/Musculoskelatal: no calf tenderness, normal capillary refill, no pedal edema, normal range of motion, non-tender Neurologic/Psych: alert, normal mood/affect, oriented x 3 Skin: warm/dry, + pertinent finding (right forearm with approx 1.5cm length old laceration with gaping, clear discharge noted, no surrounding erythema or edema, no red streaking ) Diagnostics Laboratory Results Results Past 24 Hours Test 07/16/17 12:34 07/16/17 16:06 07/16/17 16:09 Range/Units White Blood Count 13.25 4.8-10.8 K/uL Red Blood Count 3.54 4.7-6.1 M/uL Hemoglobin 11.0 14.0-18.0 g/dL Hematocrit 33.5 42-52 % Mean Corpuscular Volume 94.6 80-100 fL Mean Corpuscular Hemoglobin 31.1 25-34 pg Mean Corpuscular Hemoglobin Concent 32.8 32-36 g/dl Platelet Count 316 130-400 K/uL Mean Platelet Volume 9.1 7.4-10.4 fL Neutrophils (%) (Auto) 85.5 % Lymphocytes (%) (Auto) 8.9 % Monocytes (%) (Auto) 4.5 % Eosinophils (%) (Auto) 0.5 % Basophils (%) (Auto) 0.1 % Neutrophils # (Auto) 11.32 1.4-6.5 K/uL Lymphocytes # (Auto) 1.18 1.2-3.4 K/uL Monocytes # (Auto) 0.60 0.11-0.59 K/uL Eosinophils # (Auto) 0.07 0-0.5 K/uL Basophils # (Auto) 0.01 0-0.2 K/uL RDW Standard Deviation 53.7 36.4-46.3 fL RDW Coefficient of Variation 15.5 11.5-14.5 % Immature Granulocyte % (Auto) 0.5 % Immature Granulocyte # (Auto) 0.07 0.00-0.02 K/uL Toxic Granulation 1+ Dohle Bodies 1+ Hypochromasia PRESENT Sodium Level 138 136-145 mmol/L Potassium Level 3.6 3.5-5.1 mmol/L Chloride Level 103 98-107 mmol/L Carbon Dioxide Level 28 21-32 mmol/L Anion Gap 7.0 3-11 mmol/L Blood Urea Nitrogen 16 7-18 mg/dl Creatinine 0.97 0.60-1.40 mg/dl Est Creatinine Clear Calc Drug Dose 88.1 ml/min Estimated GFR () 95.9 Estimated GFR (Non- 82.7 BUN/Creatinine Ratio 16.4 10-20 Random Glucose 97 70-99 mg/dl Calcium Level 8.8 8.5-10.1 mg/dl Total Bilirubin 0.3 0.2-1 mg/dl Direct Bilirubin < 0.1 0-0.2 mg/dl Aspartate Amino Transf (AST/SGOT) 8 15-37 U/L Alanine Aminotransferase (ALT/SGPT) 14 12-78 U/L Alkaline Phosphatase 96 45-117 U/L Troponin I < 0.015 0-0.045 ng/ml Total Protein 7.1 6.4-8.2 gm/dl Albumin 2.4 3.4-5.0 gm/dl Lipase 146 73-393 U/L Diagnostic Radiology CXR: IMPRESSION: 1. Emphysema 2. Interval development of right upper lung zone and right lower lung zone airspace opacities suspicious for a multifocal pneumonia. Imaging subsequent to treatment is recommended in follow-up CT ABD/PELVIS: IMPRESSION: 1. Findings are consistent with a nonspecific pancolitis, likely on an infectious or inflammatory basis. Clinical correlation will be required. 2. Advanced emphysema. 3. Foci of patchy nodularity with tree-in-bud opacities are again seen at both lung bases. This likely represents an infectious/inflammatory pneumonitis and may be chronic. Clinical correlation will be required. Follow-up as clinically needed. 4. Suspect cholelithiasis. EKG EKG: sinus tach, rate 140, PVCs Impression Assessment and Plan COLITIS: Pt with worsening watery diarrhea x 1.5 weeks with LLQ abdominal pain, s/p c- diff on 06/25/17 treated with flagyl x 10 days. Afebrile, WBC: 13. magnesium: 2.1. Tachycardic. CT ABD/PELIVS. non-specific pancolitis probable recurrent c-diff with recent c-diff infection -pending c-diff and stool studies -npo -NSS 100ml/hr -vancomycin po -GI consult -Dilaudid 0.5mg Q8 hrs prn pain -K 3.6, potassium 40meq po ordered cbc, cmp, magnesium in am. DEHYDRATION: Pt with large amounts of diarrhea and poor po intake. Tachycardia improving with IV NSS. 140-120 after 2L NSS IV in ER. -100ml/hr NSS -continue to monitor COPD on CXR today shows Emphysema, Interval development of right upper lung zone and right lower lung zone airspace opacities suspicious for a multifocal pneumonia. CT abd/pelvis shows: Foci of patchy nodularity with tree-in-bud opacities are again seen at both lung bases. This likely represents an infectious/ inflammatory pneumonitis and may be chronic. Clinical correlation will be required. At this time no worsening COPD symptoms and do not suspect acute pneumonia. Will continue to monitor and will hold on abx at this time given pt's diarrhea and recent and probable recurrent c-diff -xopenex prn SOB/wheezing -continue breo -continue O2 @ 3L via NC HS SYNCOPE HX Pt with hx intermittent syncope past year and has had several hospitalizations recently for this. ECHO 06/25/17: EF: 55-60%, Aortic valve sclerosis without stenosis -tele monitor -orthostatic vital signs WOUND R ARM Pt with hx laceration several weeks ago and had wound dehiscence after suture removal. No purulent drainage from area or surrounding erythema at this time -wound nurse consult HTN -continue to monitor -continue metoprolol -continue amlodipine CHRONIC CERVICAL & BACK PAIN -continue Percocet prn pain HART'S ESOPHAGUS -continue protonix DEPRESSION Stable, no suicidal ideations -continue paxil HX ETOH ABUSE pt denies use for greater than one year DVT PROPHYLAXIS -Lovenox SQ DISPOSITION -admit tele - Full no mechanical ventilation as per discussion with pt -Follows with Dr Monroy for routine care Pt was seen with Dr Jaramillo. See addendum I have seen and assessed the patient with our team's physician server assistant and I agree with the assessment and plan as above. This is a patient with chronic and recurrent diarrhea with positive C.diff history on 06/24/2017 and syncopal episodes which is preceded getting up out of bed to ambulate and symptoms likely due to orthostatic hypotension and dehydration. Will primarily treat with PO Vancomycin 125 ml oral QID for now which was started in the ED. Recent echocardiogram without evidence of heart failure. Tachycardia also likely due to dehydration and abdominal pain. Will give IV fluids and pain medication. Will place on telemetry because of tachycardia. Patient denies chest pain. Replete electrolytes from diarrhea. Patient also seen on exam to be coughing. However, patient breathing comfortably on room air and not hypoxic. Chest X ray interpretation of "interval development of right upper lung zone and right lower lung zone airspace opacities suspicious for a multifocal pneumonia." Patient was given Levaquin and Zosyn in the ED however antibiotics for pneumonia would appear to worsen diarrhea from presumed C.diff. Would hold off respiratory antibiotics for now. Patient with smoking history and advise smoking cessation Level of Care Telemetry Resuscitation Status FULL NO MECH VENTILATION VTE Prophylaxis VTE Risk Assessment Done? Y/N: Yes Risk Level: Moderate Given or contraindicated: Enoxaparin (Lovenox)SQ Additional Copies To Zach Monroy M.D.
[2017-07-16] MEDS ORDERED: POTASSIUM CHLORIDE 20 MEQ TABCR PO ONE (18:30)
[2017-07-16] MEDS: OXYCODONE/ACETAMINOPHEN 5-325 TAB PO PRN (18:59)
[2017-07-16] MEDS: SODIUM CHLORIDE 0.9% 1000ML 1,000 ML IV SCH (19:00)
[2017-07-16 19:20] VITALS: BP 108/71; PULSE 119; TEMP 36.7; O2SAT 93
[2017-07-16 20:00] VITALS: O2SAT 93
[2017-07-16] MEDS: RASPBERRY SYRUP 5 ML UDP PO SCH (20:45)
[2017-07-16] MEDS: VANCOMYCIN HCL 125 MG/2.5ML SOLN PO SCH (20:45)
[2017-07-16] MEDS: ENOXAPARIN 40 MG/0.4 ML SYR SC SCH (20:46)
[2017-07-16] MEDS ORDERED: FUROSEMIDE INJ 20 MG in SYRINGE 0 ML IV SCH (21:00)
[2017-07-16] MEDS ORDERED: KETOROLAC TROMETHAMINE 30 MG/ML VIAL IV STA (21:12)
[2017-07-16 23:35] VITALS: BP 107/65; PULSE 116; TEMP 36.4; O2SAT 94
[2017-07-17] VITALS (10 sets, daily range): BP systolic 108–140; BP diastolic 71–90; PULSE 75–122; TEMP 36.2–36.5; O2SAT 91–96
[2017-07-17] MEDS: HYDROmorphone INJ 0.5 MG/0.5 ML SYR IV PRN ×5 (01:04→20:53)
[2017-07-17] MEDS: OXYCODONE/ACETAMINOPHEN 5-325 TAB PO PRN ×2 (01:05→07:20)
[2017-07-17] MEDS: SODIUM CHLORIDE 0.9% 1000ML 1,000 ML IV SCH ×3 (05:19→21:06)
[2017-07-17] MEDS: PANTOprazole SOD 40 MG TAB PO SCH (07:21)
[2017-07-17] MEDS: ASPIRIN 81 MG ECTAB PO SCH (07:21)
[2017-07-17] MEDS: PAROXETINE 20 MG TAB PO SCH (07:21)
[2017-07-17] MEDS: METOPROLOL SUCC 50MG EXT REL TAB PO SCH (07:21)
[2017-07-17] MEDS: RASPBERRY SYRUP 5 ML UDP PO SCH ×4 (07:22→20:59)
[2017-07-17] MEDS: AMLODIPINE BESYLATE 5 MG TAB PO SCH (07:22)
[2017-07-17] MEDS: VANCOMYCIN HCL 125 MG/2.5ML SOLN PO SCH ×4 (07:22→20:59)
[2017-07-17 07:27] LABS: BASO % 0.1 %; BASO ABS # 0.01 K/uL (0-0.2); EOS % 1.2 %; HEMOGLOBIN 9.1 g/dL (14.0-18.0); IG# 0.05 K/uL (0.00-0.02); LYMPH % 17.3 %; LYMPH ABS # 1.41 K/uL (1.2-3.4); MEAN CELL VOLUME 95.1 fL (80-100); MEAN CORPUSCULAR HEMOGLOBIN 29.8 pg (25-34); MEAN CORPUSCULAR HGB CONC 31.4 g/dl (32-36); MEAN PLATELET VOLUME 9.1 fL (7.4-10.4); MONO % 6.1 %; NEUT % 74.7 %; NEUT ABS # 6.08 K/uL (1.4-6.5); PLATELET COUNT 319 K/uL (130-400); RED CELL DISTRIBUTION WIDTH CV 15.8 % (11.5-14.5); RED CELL DISTRIBUTION WIDTH SD 54.7 fL (36.4-46.3); WHITE BLOOD COUNT 8.15 K/uL (4.8-10.8)
[2017-07-17 07:55] LABS: CALCIUM 7.8 mg/dl (8.5-10.1); CREATININE 0.91 mg/dl (0.60-1.40); POTASSIUM 3.8 mmol/L (3.5-5.1)
[2017-07-17 07:58] LABS: TOTAL PROTEIN 6.2 gm/dl (6.4-8.2)
--- NOTE | 2017-07-17 08:31 | Gastrointestinal Consultation ---
Gastrointestinal Consultation Date of Consultation: Jul 17, 2017 Attending Physician: Dr. Amos Consulting Physician: Dr. Roman Robert Reason for Consultation: Recurrent Cdiff History of Present Illness Patient is a 61 year old male with a recent admission to this facility 06/24/17 - 06/25/17 for cdiff, discharged on a 14 day course of Flagyl. He states that he initially improved, but then his diarrhea returned, with multiple episodes of non-bloody liquid stool in a day. He reports associated lower abdominal cramping as well. He reports significant tachycardia and a syncopal episode at home. He was admitted to ICU and was started on po vancomycin 125 QID for a presumed recurrence of cdiff. Stool studies are pending. His last colonoscopy was 05/16/16, showing diverticulosis, internal hemorrhoids, and two polyps. CT a/p showed: IMPRESSION: 1. Findings are consistent with a nonspecific pancolitis, likely on an infectious or inflammatory basis. Clinical correlation will be required. 2. Advanced emphysema. 3. Foci of patchy nodularity with tree-in-bud opacities are again seen at both lung bases. This likely represents an infectious/inflammatory pneumonitis and may be chronic. Clinical correlation will be required. Follow-up as clinically needed. 4. Suspect cholelithiasis. 5. Additional findings as above. Past Medical/Surgical History Medical Problems: (1) C. difficile colitis Status: Acute (2) Chest pain Status: Acute (3) Dehydration Status: Acute (4) Fall Status: Acute (5) Fracture of rib of right side Status: Acute (6) Laceration of right forearm Status: Acute (7) Multiple fractures of ribs, right side, initial encounter forclosed fracture Status: Acute (8) Pancolitis Status: Acute (9) Pneumonia Status: Acute (10) Postoperative wound dehiscence Status: Acute (11) SOB (shortness of breath) Status: Acute (12) Syncope Status: Acute (13) Tachycardia Status: Acute (14) Vomiting Status: Acute Past Medical History: COPD, HTN, Depression, Chronic Back/Neck pain, Joyce's esophagus Past Surgical History: Appendectomy, hernia repair, Hydrocele, Bowel surgery, Tumor removal from back and right knee Family History FH: CAD (coronary artery disease) FATHER ([place], bypass) FHx: heart disease SISTER (atrial septal defect) Hypertension FATHER MOTHER Stroke FATHER TIAs FATHER Social History Smoking Status: Current Every Day Smoker (smokes 2-3 cigarettes several days a week. smoked 0.25ppd x 40 years) Alcohol Use: occasionally Drug Use: none Marital Status: single Housing Status: lives alone Occupation Status: disabled Allergies Coded Allergies: Shellfish (Verified Allergy, Severe, SOB & SWOLLEN GLANDS FROM SHELLFISH, 07/16/17) Onion (Verified Allergy, Unknown, RASH AND GI UPSET, 07/16/17) Captopril (Verified Adverse Reaction, Intermediate, "felt bad", 07/16/17) Codeine (Verified Adverse Reaction, Unknown, nausea; nightmares, 07/16/17) Current Medications Home Meds and Scripts Medications Dose Route/Sig Max Daily Dose Days Date Category Mobic (Meloxicam) 7.5 Mg Tab 7.5 Mg PO DAILY PRN 7 06/29/17 Rx Amlodipine Besylate 5 Mg Tab 10 Mg PO QAM 30 06/29/17 Rx Percocet 5MG/325MG (Oxycodone/Acetaminophen) Tab 1 Tabs PO Q4-6H PRN 06/29/17 Rx Breo Ellipta (Fluticasone Furoate-Vilanterol) 1 Inh Inh 1 Puff INH DAILY 06/24/17 Reported Aspirin 81 Low Dose (Aspirin) 81 Mg Chw 1 Tab PO DAILY 06/24/17 Reported Paxil (Paroxetine HCl) 20 Mg Tab 20 Mg PO DAILY 05/29/17 Reported Ventolin Hfa (Albuterol) 200 Puffs/77302 Mcg Aers 2 Puffs INH QID PRN 01/31/17 Reported Oxygen Gas 3 Liters NA HS 09/12/16 Reported Protonix (Pantoprazole Sodium) 40 Mg Tab 40 Mg PO QAM 09/12/16 Reported Toprol-Xl (Metoprolol Succinate) 100 Mg Tabcr 100 Mg PO QAM 09/17/15 Reported Ambien (Zolpidem Tartrate) 10 Mg Tab 10 Mg PO HS PRN 09/17/15 Reported Review of Systems Constitutional: No fever, No chills Eyes: No worsening of vision, No eye pain ENT: No hearing loss Respiratory: + cough, + shortness of breath Cardiac: No chest pain Abdomen: + see HPI Musculoskeletal: + joint pain (chronic back and neck pain) Male : No dysuria Neuro: No problem reported Psych: No problem reported Heme: No abnormal bleeding/bruising Endo: No excessive thirst, No excessive urination Skin: No rash, No itch Physical Exam Date Time Temp Pulse Resp B/P (MAP) Pulse Ox O2 Delivery O2 Flow Rate FiO2 07/17/17 08:16 102 20 95 Room Air 07/17/17 08:02 36.2 120 22 122/90 (101) 96 Room Air 07/17/17 05:47 114 122/79 (93) 88 129/76 (93) 122 115/73 (87) 07/17/17 04:00 Room Air 07/17/17 03:35 36.4 106 23 108/71 (83) 93 Mask 3.0 07/17/17 00:00 Room Air 07/16/17 23:35 36.4 116 23 107/65 (79) 94 Room Air 07/16/17 20:00 93 Room Air 07/16/17 19:20 36.7 119 22 108/71 (83) 93 Room Air 07/16/17 17:55 36.5 119 20 110/80 94 Room Air 07/16/17 17:29 120 20 126/85 100 Room Air 07/16/17 16:30 123 145/91 100 Room Air 07/16/17 16:17 117 07/16/17 15:30 122 20 126/90 95 Room Air 07/16/17 14:30 119 20 131/86 86 Room Air 07/16/17 13:07 132 20 125/71 95 Room Air 07/16/17 12:30 135 20 123/84 93 Room Air 07/16/17 12:11 116 07/16/17 11:26 36.3 145 20 98 Room Air General Appearance: no apparent distress Eyes: normal inspection ENT: hearing grossly normal Neck: supple Respiratory/Chest: chest non-tender, lungs clear, no respiratory distress, no accessory muscle use Cardiovascular: no edema, + tachycardia Abdomen: normal bowel sounds, soft, + tenderness (epigastric and LLQ tenderness ) Extremities: no pedal edema Neurologic/Psych: alert Skin: normal color, no jaundice, warm/dry Laboratory Results Last 24 Hours Test 07/16/17 12:34 07/16/17 19:40 07/17/17 06:53 White Blood Count 13.25 K/uL 8.15 K/uL Red Blood Count 3.54 M/uL 3.05 M/uL Hemoglobin 11.0 g/dL 9.1 g/dL Hematocrit 33.5 % 29.0 % Mean Corpuscular Volume 94.6 fL 95.1 fL Mean Corpuscular Hemoglobin 31.1 pg 29.8 pg Mean Corpuscular Hemoglobin Concent 32.8 g/dl 31.4 g/dl Platelet Count 316 K/uL 319 K/uL Mean Platelet Volume 9.1 fL 9.1 fL Neutrophils (%) (Auto) 85.5 % 74.7 % Lymphocytes (%) (Auto) 8.9 % 17.3 % Monocytes (%) (Auto) 4.5 % 6.1 % Eosinophils (%) (Auto) 0.5 % 1.2 % Basophils (%) (Auto) 0.1 % 0.1 % Neutrophils # (Auto) 11.32 K/uL 6.08 K/uL Lymphocytes # (Auto) 1.18 K/uL 1.41 K/uL Monocytes # (Auto) 0.60 K/uL 0.50 K/uL Eosinophils # (Auto) 0.07 K/uL 0.10 K/uL Basophils # (Auto) 0.01 K/uL 0.01 K/uL RDW Standard Deviation 53.7 fL 54.7 fL RDW Coefficient of Variation 15.5 % 15.8 % Immature Granulocyte % (Auto) 0.5 % 0.6 % Immature Granulocyte # (Auto) 0.07 K/uL 0.05 K/uL Toxic Granulation 1+ Dohle Bodies 1+ Hypochromasia PRESENT Prothrombin Time 10.9 SECONDS Prothromb Time International Ratio 1.0 Sodium Level 138 mmol/L 139 mmol/L Potassium Level 3.6 mmol/L 3.8 mmol/L Chloride Level 103 mmol/L 106 mmol/L Carbon Dioxide Level 28 mmol/L 25 mmol/L Anion Gap 7.0 mmol/L 8.0 mmol/L Blood Urea Nitrogen 16 mg/dl 18 mg/dl Creatinine 0.97 mg/dl 0.91 mg/dl Est Creatinine Clear Calc Drug Dose 88.1 ml/min 93.9 ml/min Estimated GFR () 95.9 103.6 Estimated GFR (Non- 82.7 89.4 BUN/Creatinine Ratio 16.4 19.8 Random Glucose 97 mg/dl 75 mg/dl Calcium Level 8.8 mg/dl 7.8 mg/dl Magnesium Level 2.1 mg/dl 1.8 mg/dl Total Bilirubin 0.3 mg/dl 0.1 mg/dl Direct Bilirubin < 0.1 mg/dl Aspartate Amino Transf (AST/SGOT) 8 U/L 8 U/L Alanine Aminotransferase (ALT/SGPT) 14 U/L 13 U/L Alkaline Phosphatase 96 U/L 77 U/L Troponin I < 0.015 ng/ml Total Protein 7.1 gm/dl 6.2 gm/dl Albumin 2.4 gm/dl 2.0 gm/dl Lipase 146 U/L Procalcitonin 0.43 ng/ml Thyroid Stimulating Hormone (TSH) 0.431 uIu/ml Urine Color YELLOW Urine Appearance CLEAR Urine pH 6.5 Urine Specific [place] <= 1.005 Urine Protein TRACE Urine Glucose (UA) NEG Urine Ketones TRACE Urine Occult Blood NEG Urine Nitrite NEG Urine Bilirubin NEG Urine Urobilinogen NEG Urine Leukocyte Esterase NEG Urine RBC 0-4 /hpf Urine WBC 1-5 /hpf Urine Epithelial Cells 5-10 /lpf Urine Bacteria NEG Urine Hyaline Casts 1-5 /lpf Globulin 4.2 gm/dl Albumin/Globulin Ratio 0.5 Impression Patient is a 61 year old male with a recent hx of Cdiff, s/p 10 day course of Flagyl. He is now re-admitted with non-bloody diarrhea, lower abdominal pain and CT scan showing colitis. Stool studies pending. Plan Patient has been started on po vancomycin, 125 QID. Would continue this for a period of 14 days. Add a twice daily probiotic, and additional cholestyramine if diarrhea persists. Will continue to follow. I performed a history and physical examination of the patient. I have discussed the patient's case, impression and plan with Teri Kaur PA-C. Her note reflects my findings and plan. Cont C. diff treatment for a full 14 days. Roman Robert MD
[2017-07-17] MEDS ORDERED: ASPIRIN 324 MG CHEW PO SCH (09:00)
[2017-07-17] MEDS ORDERED: LEVALBUTEROL 0.63MG/3 ML NEB INH PRN ×2 (09:45)
[2017-07-17] MEDS ORDERED: IPRATROPIUM BROMIDE NEB SOLN 0.02% 2.5 ML VIAL INH PRN (09:45)
[2017-07-17] MEDS ORDERED: NURSING VERBAL MED ORDER ONE (10:15)
[2017-07-17] MEDS: LACTOBACILLUS ACIDOPHILUS (FLORANEX) TAB PO SCH ×2 (12:37→21:00)
[2017-07-17] MEDS ORDERED: LEVALBUTEROL/IPRATROPIUM NEB INH SCH (15:00)
[2017-07-17] MEDS: IPRATROPIUM BROMIDE NEB SOLN 0.02% 2.5 ML VIAL INH SCH ×2 (15:22→19:32)
[2017-07-17] MEDS: LEVALBUTEROL 0.63MG/3 ML NEB INH SCH ×2 (15:22→19:32)
--- NOTE | 2017-07-17 16:54 | Progress Note ---
Medicine Progress Note Date & Time of Visit: Jul 17, 2017 at 10:17. Subjective Pt was seen and examined Lying with no distress Complaint of abdominal pain/neck pain and back pain He said that his having a hard time to breath He said that his chest tightness feels tight and wheezing sometimes Denies any fever, palpitation, dizziness Objective Last 8 Hrs Date Time Temp Pulse Resp B/P (MAP) Pulse Ox O2 Delivery O2 Flow Rate FiO2 07/17/17 15:28 36.5 90 20 118/77 (91) 07/17/17 15:24 98 20 94 Room Air 07/17/17 12:00 Room Air 07/17/17 11:49 36.3 103 22 128/79 (95) 91 Room Air Physical Exam: General- No acute distress Head- atraumatic Eyes- PERRL, EOMI ENT- oropharynx clear Neck- supple, no JVD Lungs- +wheezing Heart- Tachycardia Abdomen- normal bowel sounds, soft Extremities- no calf tenderness, wound in R arm area with no drainage and erythema Neuro- alert, oriented x 3; PERRL, EOMI Skin- warm & dry Laboratory Results: Last 24 Hours Test 07/16/17 19:40 07/17/17 06:53 07/17/17 09:42 Urine Color YELLOW Urine Appearance CLEAR Urine pH 6.5 Urine Specific [place] <= 1.005 Urine Protein TRACE Urine Glucose (UA) NEG Urine Ketones TRACE Urine Occult Blood NEG Urine Nitrite NEG Urine Bilirubin NEG Urine Urobilinogen NEG Urine Leukocyte Esterase NEG Urine RBC 0-4 /hpf Urine WBC 1-5 /hpf Urine Epithelial Cells 5-10 /lpf Urine Bacteria NEG Urine Hyaline Casts 1-5 /lpf White Blood Count 8.15 K/uL Red Blood Count 3.05 M/uL Hemoglobin 9.1 g/dL Hematocrit 29.0 % Mean Corpuscular Volume 95.1 fL Mean Corpuscular Hemoglobin 29.8 pg Mean Corpuscular Hemoglobin Concent 31.4 g/dl Platelet Count 319 K/uL Mean Platelet Volume 9.1 fL Neutrophils (%) (Auto) 74.7 % Lymphocytes (%) (Auto) 17.3 % Monocytes (%) (Auto) 6.1 % Eosinophils (%) (Auto) 1.2 % Basophils (%) (Auto) 0.1 % Neutrophils # (Auto) 6.08 K/uL Lymphocytes # (Auto) 1.41 K/uL Monocytes # (Auto) 0.50 K/uL Eosinophils # (Auto) 0.10 K/uL Basophils # (Auto) 0.01 K/uL RDW Standard Deviation 54.7 fL RDW Coefficient of Variation 15.8 % Immature Granulocyte % (Auto) 0.6 % Immature Granulocyte # (Auto) 0.05 K/uL Sodium Level 139 mmol/L Potassium Level 3.8 mmol/L Chloride Level 106 mmol/L Carbon Dioxide Level 25 mmol/L Anion Gap 8.0 mmol/L Blood Urea Nitrogen 18 mg/dl Creatinine 0.91 mg/dl Est Creatinine Clear Calc Drug Dose 93.9 ml/min Estimated GFR () 103.6 Estimated GFR (Non- 89.4 BUN/Creatinine Ratio 19.8 Random Glucose 75 mg/dl Calcium Level 7.8 mg/dl Magnesium Level 1.8 mg/dl Total Bilirubin 0.1 mg/dl Aspartate Amino Transf (AST/SGOT) 8 U/L Alanine Aminotransferase (ALT/SGPT) 13 U/L Alkaline Phosphatase 77 U/L Total Protein 6.2 gm/dl Albumin 2.0 gm/dl Globulin 4.2 gm/dl Albumin/Globulin Ratio 0.5 Procalcitonin 0.20 ng/ml Date/Time Source Procedure Growth Status 07/16/17 19:40 Stool Shiga Toxin Test - Preliminary No E. Coli shiga toxin 1 or shiga tox... Resulted 07/16/17 19:40 Stool Stool Culture - Preliminary NO SALMONELLA ISOLATED TO DATE,... Resulted 07/17/17 15:30 Drainage-Deep Arm , Right Lower Gram Stain Pending Received 07/17/17 15:30 Drainage-Deep Arm , Right Lower Wound Culture Pending Received Assessment & Plan Watery Diarrhea associated Abdominal pain Colitis S/P c-diff on 06/25/17 treated with flagyl x [address] Abd/Pelvis showed findings consistent with a nonspecific pancolitis WBC on admission mildly elevated WBC today trending down to normal Stool for Cdiff pending Continue Vanco 125 mg QID Continue IVF and pain control GI on board COPD No acute exacerbation CXR on admission showed interval development of right upper lung zone and right lower lung zone airspace opacities suspicious for a multifocal pneumonia. Received Zosyn and Levaquin in the ER Abx did not continue Procalcitonin negative Xopenex prn SOB/wheezing continue breo Hx SYNCOPE ECHO 06/25/17: EF: 55-60%, Aortic valve sclerosis without stenosis Stable WOUND R ARM Hx laceration several weeks ago and had wound dehiscence after suture removal. Wound cx collected Dr Cooper wound care consulted Continue daily wound care HTN BP stable Continue metoprolol and amlodipine Stable CHRONIC CERVICAL & BACK PAIN Already on dilaudid Hold Percocet HART'S ESOPHAGUS continue Protonix DEPRESSION Suicidal ideations Continue Paxil Stable DVT PROPHYLAXIS Lovenox SQ CODE STATUS FULL NO [facility] Consultants: Gastro Wound Care Current Inpatient Medications: Current Inpatient Medications Medications (Trade) Dose Ordered Sig/Tyree Route Start Time Stop Time Status Last Admin Dose Admin Ioversol (Optiray 320) 100 ml UD PRN IV 07/16/17 14:00 07/20/17 13:59 Sodium Chloride 1,000 ml @ 100 mls/hr Q10H IV 07/16/17 15:30 08/15/17 15:29 07/17/17 12:38 100 MLS/HR Enoxaparin Sodium (Lovenox Inj) 40 mg Q24H SC 07/16/17 20:00 08/15/17 19:59 07/16/17 20:46 40 MG Vancomycin HCl (Vancomycin Oral Soln) 125 mg QID PO 07/16/17 20:00 07/26/17 19:59 Future hold 07/17/17 12:37 125 MG Amlodipine Besylate (Norvasc Tab) 10 mg QAM PO 07/17/17 09:00 08/16/17 08:59 07/17/17 07:22 10 MG Metoprolol Succinate (Toprol Xl Tab) 100 mg QAM PO 07/17/17 09:00 08/16/17 08:59 07/17/17 07:21 100 MG Pantoprazole Sodium (Protonix Tab) 40 mg QAM PO 07/17/17 09:00 08/16/17 08:59 07/17/17 07:21 40 MG Paroxetine HCl (pAXil TAB) 20 mg DAILY PO 07/17/17 09:00 08/16/17 08:59 07/17/17 07:21 20 MG Zolpidem Tartrate (Ambien Tab) 10 mg HS PRN PO 07/16/17 16:15 08/15/17 16:14 07/17/17 00:00 10 MG Miscellaneous Information (Order Awaiting Action) 1 ea QS N/A 07/17/17 00:00 08/16/17 00:00 Ondansetron HCl (Zofran Inj) 4 mg Q6H PRN IV 07/16/17 17:15 08/15/17 17:14 Aspirin (Ecotrin Tab) 81 mg DAILY PO 07/17/17 09:00 08/16/17 08:59 07/17/17 07:21 81 MG Raspberry (Raspberry Syrup 5ml Cup) 5 ml QID PO 07/16/17 20:00 07/30/17 19:59 07/17/17 12:37 5 ML Lactobacillus Acidophilus (Floranex Tab) 4 tab BID PO 07/17/17 09:00 08/16/17 08:59 07/17/17 12:37 4 TAB Hydromorphone HCl (Dilaudid Inj) 0.5 mg Q4 PRN IV 07/17/17 09:30 07/30/17 15:59 07/17/17 12:39 0.5 MG Ipratropium [place] (Atrovent 0.02% 0.5MG/2.5ML Neb) 0.5 mg Q6R INH 07/17/17 15:00 08/16/17 14:59 07/17/17 15:22 0.5 MG Levalbuterol (Xopenex 0.63 Mg/ 3 Ml Neb) 0.63 mg Q6R INH 07/17/17 15:00 08/16/17 14:59 07/17/17 15:22 0.63 MG Ipratropium [place] (Atrovent 0.02% 0.5MG/2.5ML Neb) 0.5 mg Q4R PRN INH 07/17/17 09:45 08/16/17 09:44 Levalbuterol (Xopenex 0.63 Mg/ 3 Ml Neb) 0.63 mg Q4R PRN INH 07/17/17 09:45 08/16/17 09:44
[2017-07-17] MEDS: ENOXAPARIN 40 MG/0.4 ML SYR SC SCH (20:59)
[2017-07-17] MEDS: ZOLPIDEM TARTRATE 10 MG TAB PO PRN ×2 (20:59)
[2017-07-18] VITALS (8 sets, daily range): BP systolic 129–155; BP diastolic 76–95; PULSE 81–118; TEMP 36.3–36.6; O2SAT 91–95
[2017-07-18] MEDS: HYDROmorphone INJ 0.5 MG/0.5 ML SYR IV PRN ×6 (01:11→20:49)
[2017-07-18] MEDS: IPRATROPIUM BROMIDE NEB SOLN 0.02% 2.5 ML VIAL INH SCH ×4 (02:56→19:35)
[2017-07-18] MEDS: LEVALBUTEROL 0.63MG/3 ML NEB INH SCH ×4 (02:57→19:35)
[2017-07-18] MEDS: SODIUM CHLORIDE 0.9% 1000ML 1,000 ML IV SCH ×2 (07:32→17:29)
[2017-07-18] MEDS: VANCOMYCIN HCL 125 MG/2.5ML SOLN PO SCH ×4 (07:33→20:47)
[2017-07-18] MEDS: RASPBERRY SYRUP 5 ML UDP PO SCH ×4 (07:33→20:47)
[2017-07-18] MEDS: ASPIRIN 81 MG ECTAB PO SCH (07:33)
[2017-07-18] MEDS: AMLODIPINE BESYLATE 5 MG TAB PO SCH (07:33)
[2017-07-18] MEDS: PAROXETINE 20 MG TAB PO SCH (07:34)
[2017-07-18] MEDS: METOPROLOL SUCC 50MG EXT REL TAB PO SCH (07:34)
[2017-07-18] MEDS: PANTOprazole SOD 40 MG TAB PO SCH (07:34)
[2017-07-18] MEDS: LACTOBACILLUS ACIDOPHILUS (FLORANEX) TAB PO SCH ×2 (07:34→20:46)
[2017-07-18 08:58] LABS: HEMATOCRIT 25.8 % (42-52); HEMOGLOBIN 8.6 g/dL (14.0-18.0); MEAN CELL VOLUME 91.8 fL (80-100); MEAN CORPUSCULAR HEMOGLOBIN 30.6 pg (25-34); MEAN CORPUSCULAR HGB CONC 33.3 g/dl (32-36); MEAN PLATELET VOLUME 8.5 fL (7.4-10.4); PLATELET COUNT 283 K/uL (130-400); RED CELL DISTRIBUTION WIDTH CV 15.5 % (11.5-14.5); RED CELL DISTRIBUTION WIDTH SD 52.7 fL (36.4-46.3); WHITE BLOOD COUNT 5.58 K/uL (4.8-10.8)
[2017-07-18 09:35] LABS: CALCIUM 7.9 mg/dl (8.5-10.1); CREATININE 0.77 mg/dl (0.60-1.40); POTASSIUM 3.5 mmol/L (3.5-5.1)
--- NOTE | 2017-07-18 11:23 | Gastroenterology Progress Note ---
Progress Note Date of Service: Jul 18, 2017 Subjective Pt evaluation today including: conversation w/ patient, physical exam, chart review, lab review, review of studies, review of inpatient medication list 61 year old male admitted with abdominal pain and diarrhea, with recent cdiff infection s/p 10 days of treatment with oral Flagyl. Stool culture was negative. He was placed on oral vanco QID for suspected recurrence of Cdiff, which he continues. Stool for Cdiff just collected overnight, was negative. He reports ongoing abdominal pain and states that he has had multiple BMs both last night and this morning, but according to nursing staff, he had the one BM overnight, and has had no stooling since then. Review of Systems Constitutional: No fever, No chills Eyes: No worsening of vision ENT: No hearing loss Respiratory: + shortness of breath Cardiac: + chest pain (mild, intermittent) Abdomen: + see HPI Musculoskeletal: No joint pain Male : No dysuria, No urinary frequency Neuro: No problem reported Psych: No problem reported Heme: No abnormal bleeding/bruising Endo: No excessive thirst, No excessive urination Skin: No rash Medications Current Inpatient Medications Medications (Trade) Dose Ordered Sig/Tyree Route Start Time Stop Time Status Last Admin Dose Admin Ioversol (Optiray 320) 100 ml UD PRN IV 07/16/17 14:00 07/20/17 13:59 Sodium Chloride 1,000 ml @ 100 mls/hr Q10H IV 07/16/17 15:30 08/15/17 15:29 07/18/17 07:32 100 MLS/HR Enoxaparin Sodium (Lovenox Inj) 40 mg Q24H SC 07/16/17 20:00 08/15/17 19:59 07/17/17 20:59 40 MG Vancomycin HCl (Vancomycin Oral Soln) 125 mg QID PO 07/16/17 20:00 07/26/17 19:59 Future hold 07/18/17 07:33 125 MG Amlodipine Besylate (Norvasc Tab) 10 mg QAM PO 07/17/17 09:00 08/16/17 08:59 07/18/17 07:33 10 MG Metoprolol Succinate (Toprol Xl Tab) 100 mg QAM PO 07/17/17 09:00 08/16/17 08:59 07/18/17 07:34 100 MG Pantoprazole Sodium (Protonix Tab) 40 mg QAM PO 07/17/17 09:00 08/16/17 08:59 07/18/17 07:34 40 MG Paroxetine HCl (pAXil TAB) 20 mg DAILY PO 07/17/17 09:00 08/16/17 08:59 07/18/17 07:34 20 MG Zolpidem Tartrate (Ambien Tab) 10 mg HS PRN PO 07/16/17 16:15 08/15/17 16:14 07/17/17 20:59 10 MG Miscellaneous Information (Order Awaiting Action) 1 ea QS N/A 07/17/17 00:00 08/16/17 00:00 Ondansetron HCl (Zofran Inj) 4 mg Q6H PRN IV 07/16/17 17:15 08/15/17 17:14 Aspirin (Ecotrin Tab) 81 mg DAILY PO 07/17/17 09:00 08/16/17 08:59 07/18/17 07:33 81 MG Raspberry (Raspberry Syrup 5ml Cup) 5 ml QID PO 07/16/17 20:00 07/30/17 19:59 07/18/17 07:33 5 ML Lactobacillus Acidophilus (Floranex Tab) 4 tab BID PO 07/17/17 09:00 08/16/17 08:59 07/18/17 07:34 4 TAB Hydromorphone HCl (Dilaudid Inj) 0.5 mg Q4 PRN IV 07/17/17 09:30 07/30/17 15:59 07/18/17 08:32 0.5 MG Ipratropium [place] (Atrovent 0.02% 0.5MG/2.5ML Neb) 0.5 mg Q6R INH 07/17/17 15:00 08/16/17 14:59 07/18/17 07:38 0.5 MG Levalbuterol (Xopenex 0.63 Mg/ 3 Ml Neb) 0.63 mg Q6R INH 07/17/17 15:00 08/16/17 14:59 07/18/17 07:38 0.63 MG Ipratropium [place] (Atrovent 0.02% 0.5MG/2.5ML Neb) 0.5 mg Q4R PRN INH 07/17/17 09:45 08/16/17 09:44 Levalbuterol (Xopenex 0.63 Mg/ 3 Ml Neb) 0.63 mg Q4R PRN INH 07/17/17 09:45 08/16/17 09:44 Objective Vital Signs Date Time Temp Pulse Resp B/P (MAP) Pulse Ox O2 Delivery O2 Flow Rate FiO2 07/18/17 08:00 Room Air 07/18/17 07:43 36.6 118 18 155/95 (115) 94 07/18/17 07:38 105 18 93 Room Air 07/18/17 04:00 Room Air 07/18/17 03:38 36.6 101 22 151/91 (111) 94 Room Air 07/18/17 02:57 81 18 95 Room Air 07/18/17 00:00 Room Air 07/17/17 23:33 36.4 75 23 140/87 (104) 94 Room Air 07/17/17 20:10 Room Air 07/17/17 19:32 95 20 95 Room Air 07/17/17 19:02 36.5 99 18 129/81 (97) 92 Room Air 07/17/17 16:00 Room Air 07/17/17 15:28 36.5 90 20 118/77 (91) 07/17/17 15:24 98 20 94 Room Air 07/17/17 12:00 Room Air 07/17/17 11:49 36.3 103 22 128/79 (95) 91 Room Air Physical Exam General Appearance: no apparent distress Eyes: normal inspection ENT: hearing grossly normal Neck: supple Respiratory/Chest: lungs clear, normal breath sounds, no respiratory distress Cardiovascular: no edema, + tachycardia Abdomen: normal bowel sounds, non tender, soft, no organomegaly Extremities: no pedal edema Neurologic/Psych: alert Skin: normal color, no jaundice, warm/dry Laboratory Results Last 24 Hours Test 07/18/17 08:45 White Blood Count 5.58 K/uL Red Blood Count 2.81 M/uL Hemoglobin 8.6 g/dL Hematocrit 25.8 % Mean Corpuscular Volume 91.8 fL Mean Corpuscular Hemoglobin 30.6 pg Mean Corpuscular Hemoglobin Concent 33.3 g/dl RDW Standard Deviation 52.7 fL RDW Coefficient of Variation 15.5 % Platelet Count 283 K/uL Mean Platelet Volume 8.5 fL Sodium Level 138 mmol/L Potassium Level 3.5 mmol/L Chloride Level 104 mmol/L Carbon Dioxide Level 26 mmol/L Anion Gap 7.0 mmol/L Blood Urea Nitrogen 6 mg/dl Creatinine 0.77 mg/dl Est Creatinine Clear Calc Drug Dose 111.0 ml/min Estimated GFR () 111.9 Estimated GFR (Non- 96.6 BUN/Creatinine Ratio 8.1 Random Glucose 108 mg/dl Calcium Level 7.9 mg/dl Assessment and Plan 61 year old male with recent cdiff infection, admitted with abdominal pain and diarrhea, with CT scan showing a non-specific pancolitis. He is on oral vanco QID and a BID probiotic Would continue the vancomycin for a period of 14 days, and also continue a twice daily probiotic. As the cdiff sample was just collected last night and he had already had several doses of vanco, it is difficult to say whether or not he has had a true recurrence of infection. Regardless, he does appear to be improving from a GI standpoint. Would recommend an OP colonoscopy in 4-6 weeks for further evaluation.
--- NOTE | 2017-07-18 13:26 | CONSULTATION REPORT ---
DATE OF CONSULTATION: 07/18/2017 REASON FOR CONSULTATION: Nonhealing traumatic wound, right forearm. The patient states that he fell 2 months ago and injured his right forearm. He underwent primary closure and had his stitches removed on 06/06/2017. He stated the wound at that time dehisced. Since then, he has continued to have an open wound which occasionally drains clear fluid. He complains of some mild tenderness, swelling and redness. He was,ring his last hospitalization on 06/27/[address] Cooper, for this complaint. He was noncompliant with outpatient followup. He states he has not been using any dressings to the wound and has been cleaning it with peroxide. He denies any history of previous nonhealing wounds. He denies any history of diabetes. No history of vascular disease. He is a smoker. He admits to previous alcohol abuse, but denies any recent alcohol use. PAST MEDICAL HISTORY: Significant for COPD, depression, Joyce's esophagus, basal cell carcinoma, Meckel's diverticulum, prior suicide attempt, hypertension, adenomatous polyp of the colon and recent C. diff infection. PREVIOUS SURGICAL HISTORY: Hernia repair, appendectomy, colon resection, cardiac catheterization, removal of tumor her right knee. FAMILY HISTORY: Father had coronary artery disease and hypertension. Mother has a history of hypertension and also had strokes. SOCIAL HISTORY: The patient is single, lives alone, disabled. Smokes 2-3 cigarettes several days a week. CURRENT OUTPATIENT MEDICATIONS: Albuterol 2 puffs q.i.d. p.r.n., amlodipine 10 mg q.a.m., aspirin 81 mg daily, Breo 1 puff daily, O2 3 liters at bedtime, Mobic 7.5 mg p.r.n. pain, Toprol-XL 100 mg daily, Percocet 5 mg/325 one tab p.o. q. 4-6 hours p.r.n. pain, Protonix 40 mg daily, Paxil 20 mg daily, Ambien 10 mg at bedtime p.r.n. ALLERGIES: CAPTOPRIL, CODEINE, ONION AND SHELLFISH. PHYSICAL EXAMINATION: GENERAL: Reveals a pleasant 61-year-old gentleman who is alert and oriented in no acute distress. VITAL SIGNS: Temperature 36.5, pulse 91, blood pressure 129/76, respiratory rate 18 and labored, O2 saturation on room air 91%. HEENT: Normocephalic, atraumatic. Pupils equal, reactive to light. Extraocular muscles are intact. Conjunctivae clear. NECK: Supple, nontender. LUNGS: Clear with diminished breath sounds. HEART: Regular rate and rhythm with no murmur. ABDOMEN: Soft, diffusely tender without guarding, rigidity, rebound tenderness. No palpable masses or organomegaly. EXTREMITIES: Lower extremities without edema or calf tenderness or palpable cords. Examination of his upper extremities with attention to the right upper extremity-Nonhealing wound measuring 1.1 x 0.8 x 0.9 cm over the proximal extensor aspect. 0.7 cm of Undermining is noted at 11 to12 o'clock and 1.5 cm at 6 and 7 o'clock . Wound bed is covered with slough. No necrosis. No drainage or odor. The periwound area is not inflamed. Range of motion of the elbow is full. Neurovascular status is intact. NEUROLOGIC: No focal deficits. LABORATORY STUDIES: Gram stain, which was done by the wound care nurse yesterday, shows few WBCs and no organisms. Deep wound culture is pending. ASSESSMENT: Nonhealing traumatic wound, right forearm. PLAN: The wound did require debridement. With the patient's permission and after the application of topical Xylocaine, the wound was debrided of slough using a #3 curette. No bleeding occurred. The site will be dressed with Aquacel AG and Optifoam to be changed daily and p.r.n. This represented a nonexcisional debridement of less than 20 square cm. Once the patient is able, I would recommend a noncontrast MRI to further assess for osteomyelitis. We will start VAC therapy on July 23. If the patient is discharged before this, arrangements should be made for him to be seen in the wound center for followup. Thank you for this consultation . MAYA
--- NOTE | 2017-07-18 17:03 | Progress Note ---
Medicine Progress Note Date & Time of Visit: Jul 18, 2017 at 16:54. Subjective Pt was seen and examined Sitting in chair with no distress with daughter at bedside Pt said that he had 7 episodes of diarrhea so far for today When i spoke to the nurse no one cannot confirm it since pt does not call anyone after having BM yesterday he took pt forever to get a stool sample Pt said that he continue to have pain He wants his dilaudid to increase to 1 mg Denies any chest pain, palpitation, dizziness and SOB Objective Last 8 Hrs Date Time Temp Pulse Resp B/P (MAP) Pulse Ox O2 Delivery O2 Flow Rate FiO2 07/18/17 15:29 36.3 90 20 132/81 (98) 93 Room Air 07/18/17 13:35 94 18 93 Room Air 07/18/17 12:00 Room Air 07/18/17 11:41 36.5 91 18 129/76 (93) 91 Physical Exam: General- No acute distress Head- atraumatic Eyes- PERRL, EOMI ENT- oropharynx clear Neck- supple, no JVD Lungs- No wheezing Heart- regular Abdomen- normal bowel sounds, soft Extremities- no calf tenderness, wound in R arm area with no drainage and erythema Neuro- alert, oriented x 3; PERRL, EOMI Skin- warm & dry Laboratory Results: Last 24 Hours Test 07/18/17 08:45 White Blood Count 5.58 K/uL Red Blood Count 2.81 M/uL Hemoglobin 8.6 g/dL Hematocrit 25.8 % Mean Corpuscular Volume 91.8 fL Mean Corpuscular Hemoglobin 30.6 pg Mean Corpuscular Hemoglobin Concent 33.3 g/dl RDW Standard Deviation 52.7 fL RDW Coefficient of Variation 15.5 % Platelet Count 283 K/uL Mean Platelet Volume 8.5 fL Sodium Level 138 mmol/L Potassium Level 3.5 mmol/L Chloride Level 104 mmol/L Carbon Dioxide Level 26 mmol/L Anion Gap 7.0 mmol/L Blood Urea Nitrogen 6 mg/dl Creatinine 0.77 mg/dl Est Creatinine Clear Calc Drug Dose 111.0 ml/min Estimated GFR () 111.9 Estimated GFR (Non- 96.6 BUN/Creatinine Ratio 8.1 Random Glucose 108 mg/dl Calcium Level 7.9 mg/dl Date/Time Source Procedure Growth Status 07/17/17 23:25 Stool C.difficile Toxin B Gene (PCR) - Final No C. difficile toxin B gene detected Complete Assessment & Plan Watery Diarrhea associated Abdominal pain Colitis S/P c-diff on 06/25/17 treated with flagyl x [address] Abd/Pelvis showed findings consistent with a nonspecific pancolitis WBC on admission mildly elevated WBC today trending down to normal Stool for Cdiff pending Continue Vanco 125 mg QID Continue IVF and pain control GI on board 07/18 Stool for C-diff negative Pt said that he continue to have diarrhea, cannot confirm that continue vancomycin 125 mg QID as per Gastro Gastro recommended outpatient colonoscopy in 4 to 6 weeks Continue pain control tolerated diet decrease IVF COPD No acute exacerbation CXR on admission showed interval development of right upper lung zone and right lower lung zone airspace opacities suspicious for a multifocal pneumonia. Received Zosyn and Levaquin in the ER Abx did not continue Procalcitonin negative Xopenex prn SOB/wheezing continue breo Stable Hx SYNCOPE ECHO 06/25/17: EF: 55-60%, Aortic valve sclerosis without stenosis Stable WOUND R ARM Hx laceration several weeks ago and had wound dehiscence after suture removal. Wound cx collected Dr Cooper wound care consulted S/P debridement by wound care physician Consider noncontrast MRI to further assess for osteomyelitis. preliminary Wound cx grew pin-poin Will need to arrange for a wound vac HTN BP stable Continue metoprolol and amlodipine Stable CHRONIC CERVICAL & BACK PAIN Already on dilaudid Resume Percocet HART'S ESOPHAGUS continue Protonix DEPRESSION Suicidal ideations Continue Paxil Stable DVT PROPHYLAXIS Lovenox SQ CODE STATUS FULL NO [facility] VENTILATION Disposition transfer to medical Consultants: Gastro Wound Care Current Inpatient Medications: Current Inpatient Medications Medications (Trade) Dose Ordered Sig/Tyree Route Start Time Stop Time Status Last Admin Dose Admin Ioversol (Optiray 320) 100 ml UD PRN IV 07/16/17 14:00 07/20/17 13:59 Sodium Chloride 1,000 ml @ 100 mls/hr Q10H IV 07/16/17 15:30 08/15/17 15:29 07/18/17 07:32 100 MLS/HR Enoxaparin Sodium (Lovenox Inj) 40 mg Q24H SC 07/16/17 20:00 08/15/17 19:59 07/17/17 20:59 40 MG Vancomycin HCl (Vancomycin Oral Soln) 125 mg QID PO 07/16/17 20:00 07/26/17 19:59 Future hold 07/18/17 12:32 125 MG Amlodipine Besylate (Norvasc Tab) 10 mg QAM PO 07/17/17 09:00 08/16/17 08:59 07/18/17 07:33 10 MG Metoprolol Succinate (Toprol Xl Tab) 100 mg QAM PO 07/17/17 09:00 08/16/17 08:59 07/18/17 07:34 100 MG Pantoprazole Sodium (Protonix Tab) 40 mg QAM PO 07/17/17 09:00 08/16/17 08:59 07/18/17 07:34 40 MG Paroxetine HCl (pAXil TAB) 20 mg DAILY PO 07/17/17 09:00 08/16/17 08:59 07/18/17 07:34 20 MG Zolpidem Tartrate (Ambien Tab) 10 mg HS PRN PO 07/16/17 16:15 08/15/17 16:14 07/17/17 20:59 10 MG Miscellaneous Information (Order Awaiting Action) 1 ea QS N/A 07/17/17 00:00 08/16/17 00:00 Ondansetron HCl (Zofran Inj) 4 mg Q6H PRN IV 07/16/17 17:15 08/15/17 17:14 Aspirin (Ecotrin Tab) 81 mg DAILY PO 07/17/17 09:00 08/16/17 08:59 07/18/17 07:33 81 MG Raspberry (Raspberry Syrup 5ml Cup) 5 ml QID PO 07/16/17 20:00 07/30/17 19:59 07/18/17 12:32 5 ML Lactobacillus Acidophilus (Floranex Tab) 4 tab BID PO 07/17/17 09:00 08/16/17 08:59 07/18/17 07:34 4 TAB Hydromorphone HCl (Dilaudid Inj) 0.5 mg Q4 PRN IV 07/17/17 09:30 07/30/17 15:59 07/18/17 16:34 0.5 MG Ipratropium [place] (Atrovent 0.02% 0.5MG/2.5ML Neb) 0.5 mg Q6R INH 07/17/17 15:00 08/16/17 14:59 07/18/17 13:34 0.5 MG Levalbuterol (Xopenex 0.63 Mg/ 3 Ml Neb) 0.63 mg Q6R INH 07/17/17 15:00 08/16/17 14:59 07/18/17 13:34 0.63 MG Ipratropium [place] (Atrovent 0.02% 0.5MG/2.5ML Neb) 0.5 mg Q4R PRN INH 07/17/17 09:45 08/16/17 09:44 Levalbuterol (Xopenex 0.63 Mg/ 3 Ml Neb) 0.63 mg Q4R PRN INH 07/17/17 09:45 08/16/17 09:44
[2017-07-18] MEDS: OXYCODONE/ACETAMINOPHEN 5-325 TAB PO PRN (19:00)
[2017-07-18] MEDS: ENOXAPARIN 40 MG/0.4 ML SYR SC SCH (20:45)
[2017-07-18] MEDS: ZOLPIDEM TARTRATE 10 MG TAB PO PRN (22:25)
[2017-07-19] VITALS (7 sets, daily range): BP systolic 124–154; BP diastolic 75–83; PULSE 91–120; TEMP 36.5–36.6; O2SAT 92–94
[2017-07-19] MEDS: IPRATROPIUM BROMIDE NEB SOLN 0.02% 2.5 ML VIAL INH SCH ×4 (01:56→19:55)
[2017-07-19] MEDS: LEVALBUTEROL 0.63MG/3 ML NEB INH SCH ×4 (01:56→19:55)
[2017-07-19] MEDS: HYDROmorphone INJ 0.5 MG/0.5 ML SYR IV PRN ×5 (04:34→21:27)
[2017-07-19] MEDS: RASPBERRY SYRUP 5 ML UDP PO SCH ×4 (08:02→21:26)
[2017-07-19] MEDS: METOPROLOL SUCC 50MG EXT REL TAB PO SCH (08:02)
[2017-07-19] MEDS: VANCOMYCIN HCL 125 MG/2.5ML SOLN PO SCH ×4 (08:02→21:26)
[2017-07-19] MEDS: PANTOprazole SOD 40 MG TAB PO SCH (08:02)
[2017-07-19] MEDS: OXYCODONE/ACETAMINOPHEN 5-325 TAB PO PRN ×3 (08:02→22:40)
[2017-07-19] MEDS: LACTOBACILLUS ACIDOPHILUS (FLORANEX) TAB PO SCH ×2 (08:03→21:26)
[2017-07-19] MEDS: AMLODIPINE BESYLATE 5 MG TAB PO SCH (08:03)
[2017-07-19] MEDS: ASPIRIN 81 MG ECTAB PO SCH (08:03)
[2017-07-19] MEDS: PAROXETINE 20 MG TAB PO SCH (08:04)
[2017-07-19 08:43] LABS: HEMATOCRIT 28.1 % (42-52); HEMOGLOBIN 8.9 g/dL (14.0-18.0); MEAN CORPUSCULAR HEMOGLOBIN 29.5 pg (25-34); MEAN CORPUSCULAR HGB CONC 31.7 g/dl (32-36); MEAN PLATELET VOLUME 8.8 fL (7.4-10.4); PLATELET COUNT 374 K/uL (130-400); RED CELL DISTRIBUTION WIDTH CV 15.8 % (11.5-14.5); RED CELL DISTRIBUTION WIDTH SD 53.9 fL (36.4-46.3); WHITE BLOOD COUNT 7.37 K/uL (4.8-10.8)
[2017-07-19 09:22] LABS: CALCIUM 8.3 mg/dl (8.5-10.1); CREATININE 0.65 mg/dl (0.60-1.40); POTASSIUM 3.4 mmol/L (3.5-5.1)
[2017-07-19] MEDS ORDERED: POTASSIUM CHLORIDE 20 MEQ TABCR PO ONE (11:15)
[2017-07-19] MEDS: SODIUM CHLORIDE 0.9% 1000ML 1,000 ML IV SCH (14:09)
--- NOTE | 2017-07-19 18:40 | Progress Note ---
Medicine Progress Note Date & Time of Visit: Jul 19, 2017 at 12:33. Subjective Pt was seen and examined Lying in bed with no distress Pt said that he continue to have watery diarrhea Nurse said that he has not seen any stools Pt refused to call staff after a BM to confirm for the diarrhea denies any chest pain, palpitation, dizziness and SOB Objective Last 8 Hrs Date Time Temp Pulse Resp B/P (MAP) Pulse Ox O2 Delivery O2 Flow Rate FiO2 07/19/17 16:46 94 Room Air 07/19/17 16:13 36.5 92 18 124/78 (93) 94 Room Air 07/19/17 14:12 91 18 94 Room Air Physical Exam: General- No acute distress Head- atraumatic Eyes- PERRL, EOMI ENT- oropharynx clear Neck- supple, no JVD Lungs- No wheezing Heart- regular Abdomen- normal bowel sounds, soft Extremities- no calf tenderness, wound in R arm area with no drainage and erythema Neuro- alert, oriented x 3; PERRL, EOMI Skin- warm & dry Laboratory Results: Last 24 Hours Test 07/19/17 08:11 White Blood Count 7.37 K/uL Red Blood Count 3.02 M/uL Hemoglobin 8.9 g/dL Hematocrit 28.1 % Mean Corpuscular Volume 93.0 fL Mean Corpuscular Hemoglobin 29.5 pg Mean Corpuscular Hemoglobin Concent 31.7 g/dl RDW Standard Deviation 53.9 fL RDW Coefficient of Variation 15.8 % Platelet Count 374 K/uL Mean Platelet Volume 8.8 fL Sodium Level 137 mmol/L Potassium Level 3.4 mmol/L Chloride Level 104 mmol/L Carbon Dioxide Level 26 mmol/L Anion Gap 7.0 mmol/L Blood Urea Nitrogen 5 mg/dl Creatinine 0.65 mg/dl Est Creatinine Clear Calc Drug Dose 131.5 ml/min Estimated GFR () 120.0 Estimated GFR (Non- 103.5 BUN/Creatinine Ratio 7.5 Random Glucose 87 mg/dl Calcium Level 8.3 mg/dl Assessment & Plan Watery Diarrhea associated Abdominal pain Colitis S/P c-diff on 06/25/17 treated with flagyl x [address] Abd/Pelvis showed findings consistent with a nonspecific pancolitis WBC on admission mildly elevated WBC today trending down to normal Stool for Cdiff pending Continue Vanco 125 mg QID Continue IVF and pain control GI on board 07/19 Stool for C-diff negative nurse to confirm about the diarrhea Pt said that he continue to have diarrhea, cannot confirm that continue vancomycin 125 mg QID as per Gastro Gastro recommended outpatient colonoscopy in 4 to 6 weeks Continue pain control tolerated diet Continue gentle IVF COPD No acute exacerbation CXR on admission showed interval development of right upper lung zone and right lower lung zone airspace opacities suspicious for a multifocal pneumonia. Received Zosyn and Levaquin in the ER Abx did not continue Procalcitonin negative Xopenex prn SOB/wheezing continue breo Stable Hx SYNCOPE ECHO 06/25/17: EF: 55-60%, Aortic valve sclerosis without stenosis Stable WOUND R ARM Hx laceration several weeks ago and had wound dehiscence after suture removal. Wound cx collected Dr Cooepr wound care consulted S/P debridement by wound care physician Will get noncontrast MRI to further assess for osteomyelitis. Wound cx grew coag negative staph Will need to arrange for a wound vac HTN BP stable Continue metoprolol and amlodipine Stable CHRONIC CERVICAL & BACK PAIN IV dilaudid 0.5 mg q4h and Percocet HART'S ESOPHAGUS continue Protonix DEPRESSION Suicidal ideations Continue Paxil Stable DVT PROPHYLAXIS Lovenox SQ CODE STATUS FULL NO MECH VENTILATION Disposition Will discharge once medically stable Consultants: Gastro Wound Care Current Inpatient Medications: Current Inpatient Medications Medications (Trade) Dose Ordered Sig/Tyree Route Start Time Stop Time Status Last Admin Dose Admin Ioversol (Optiray 320) 100 ml UD PRN IV 07/16/17 14:00 07/20/17 13:59 Sodium Chloride 1,000 ml @ 50 mls/hr Q20H IV 07/16/17 15:30 08/15/17 15:29 07/19/17 14:09 50 MLS/HR Enoxaparin Sodium (Lovenox Inj) 40 mg Q24H SC 07/16/17 20:00 08/15/17 19:59 07/18/17 20:45 40 MG Vancomycin HCl (Vancomycin Oral Soln) 125 mg QID PO 07/16/17 20:00 07/26/17 19:59 Future hold 07/19/17 17:29 125 MG Amlodipine Besylate (Norvasc Tab) 10 mg QAM PO 07/17/17 09:00 08/16/17 08:59 07/19/17 08:03 10 MG Metoprolol Succinate (Toprol Xl Tab) 100 mg QAM PO 07/17/17 09:00 08/16/17 08:59 07/19/17 08:02 100 MG Pantoprazole Sodium (Protonix Tab) 40 mg QAM PO 07/17/17 09:00 08/16/17 08:59 07/19/17 08:02 40 MG Paroxetine HCl (pAXil TAB) 20 mg DAILY PO 07/17/17 09:00 08/16/17 08:59 07/19/17 08:04 20 MG Zolpidem Tartrate (Ambien Tab) 10 mg HS PRN PO 07/16/17 16:15 08/15/17 16:14 07/18/17 22:25 10 MG Miscellaneous Information (Order Awaiting Action) 1 ea QS N/A 07/17/17 00:00 08/16/17 00:00 Ondansetron HCl (Zofran Inj) 4 mg Q6H PRN IV 07/16/17 17:15 08/15/17 17:14 Aspirin (Ecotrin Tab) 81 mg DAILY PO 07/17/17 09:00 08/16/17 08:59 07/19/17 08:03 81 MG Raspberry (Raspberry Syrup 5ml Cup) 5 ml QID PO 07/16/17 20:00 07/30/17 19:59 07/19/17 17:29 5 ML Lactobacillus Acidophilus (Floranex Tab) 4 tab BID PO 07/17/17 09:00 08/16/17 08:59 07/19/17 08:03 4 TAB Hydromorphone HCl (Dilaudid Inj) 0.5 mg Q4 PRN IV 07/17/17 09:30 07/30/17 15:59 07/19/17 17:30 0.5 MG Ipratropium [place] (Atrovent 0.02% 0.5MG/2.5ML Neb) 0.5 mg Q6R INH 07/17/17 15:00 08/16/17 14:59 07/19/17 14:11 0.5 MG Levalbuterol (Xopenex 0.63 Mg/ 3 Ml Neb) 0.63 mg Q6R INH 07/17/17 15:00 08/16/17 14:59 07/19/17 14:11 0.63 MG Ipratropium [place] (Atrovent 0.02% 0.5MG/2.5ML Neb) 0.5 mg Q4R PRN INH 07/17/17 09:45 08/16/17 09:44 Levalbuterol (Xopenex 0.63 Mg/ 3 Ml Neb) 0.63 mg Q4R PRN INH 07/17/17 09:45 08/16/17 09:44 Oxycodone/ Acetaminophen (Percocet 5-325mg Tab) 1 tab Q6H PRN PO 07/18/17 17:15 08/01/17 17:14 07/19/17 15:55 1 TAB
[2017-07-19] MEDS: ENOXAPARIN 40 MG/0.4 ML SYR SC SCH (21:26)
[2017-07-19] MEDS: ZOLPIDEM TARTRATE 10 MG TAB PO PRN (22:40)
[2017-07-20 00:25] VITALS: BP 121/75; PULSE 101; TEMP 37; O2SAT 91
[2017-07-20] MEDS: LEVALBUTEROL 0.63MG/3 ML NEB INH SCH ×4 (02:01→19:19)
[2017-07-20] MEDS: IPRATROPIUM BROMIDE NEB SOLN 0.02% 2.5 ML VIAL INH SCH ×4 (02:01→19:19)
[2017-07-20] MEDS: HYDROmorphone INJ 0.5 MG/0.5 ML SYR IV PRN ×6 (02:20→22:41)
[2017-07-20] MEDS: OXYCODONE/ACETAMINOPHEN 5-325 TAB PO PRN ×4 (04:38→21:06)
[2017-07-20 06:31] LABS: HEMATOCRIT 26.2 % (42-52); HEMOGLOBIN 8.1 g/dL (14.0-18.0); MEAN CELL VOLUME 93.2 fL (80-100); MEAN CORPUSCULAR HEMOGLOBIN 28.8 pg (25-34); MEAN CORPUSCULAR HGB CONC 30.9 g/dl (32-36); MEAN PLATELET VOLUME 8.7 fL (7.4-10.4); PLATELET COUNT 417 K/uL (130-400); RED CELL DISTRIBUTION WIDTH CV 15.8 % (11.5-14.5); RED CELL DISTRIBUTION WIDTH SD 54.3 fL (36.4-46.3); WHITE BLOOD COUNT 7.82 K/uL (4.8-10.8)
[2017-07-20 07:04] LABS: CALCIUM 8.1 mg/dl (8.5-10.1); CREATININE 0.74 mg/dl (0.60-1.40)
[2017-07-20 07:06] VITALS: PULSE 101; O2SAT 92
[2017-07-20] MEDS: PAROXETINE 20 MG TAB PO SCH (07:16)
[2017-07-20] MEDS: PANTOprazole SOD 40 MG TAB PO SCH (07:16)
[2017-07-20] MEDS: RASPBERRY SYRUP 5 ML UDP PO SCH ×4 (07:16→21:05)
[2017-07-20] MEDS: AMLODIPINE BESYLATE 5 MG TAB PO SCH (07:16)
[2017-07-20] MEDS: METOPROLOL SUCC 50MG EXT REL TAB PO SCH (07:16)
[2017-07-20] MEDS: LACTOBACILLUS ACIDOPHILUS (FLORANEX) TAB PO SCH ×2 (07:17→21:05)
[2017-07-20] MEDS: ASPIRIN 81 MG ECTAB PO SCH (07:17)
[2017-07-20] MEDS: VANCOMYCIN HCL 125 MG/2.5ML SOLN PO SCH ×4 (07:21→21:05)
[2017-07-20 07:58] VITALS: BP 146/89; PULSE 95; TEMP 36.7; O2SAT 92
[2017-07-20] MEDS ORDERED: NURSING VERBAL MED ORDER ONE (09:00)
[2017-07-20] MEDS ORDERED: LORAZEPAM INJ 0.5 MG in SYRINGE 0.75 ML IV SCH (10:00)
[2017-07-20] MEDS ORDERED: GADAVIST IV PRN (10:45)
--- NOTE | 2017-07-20 10:54 | DIAGNOSTIC IMAGING REPORT ---
R UPPER EXT NONJOINT COMBO CLINICAL HISTORY: forearm; r/o osteo pain. Infection. TECHNIQUE: Multi axial MRI acquisition COMPARISON STUDY: None FINDINGS: Mild soft tissue cellulitis posterior to the proximal aspect of the ulna no evidence for drainable abscess or collection. No significant muscular involvement. trace periostitis posterior aspect proximal ulna. No evidence for bone marrow replacement. No evidence for osteomyelitis. IMPRESSION: 1. Soft tissue cellulitis localized to the subcutaneous fat posterior to the proximal ulna. 2. Potential trace periostitis posterior aspect proximal ulna. 3. No evidence for abscess or collection. 4. No evidence for osteomyelitis. The above report was generated using voice recognition software. It may contain grammatical, syntax or spelling errors. Electronically signed by: Raman Julio M.D. 07/20/2017 10:53 AM Dictated Date/Time: 07/20/2017 10:48 AM
[2017-07-20] MEDS: SODIUM CHLORIDE 0.9% 1000ML 1,000 ML IV SCH (10:56)
[2017-07-20 15:11] VITALS: BP 122/77; PULSE 83; TEMP 36.6; O2SAT 91
[2017-07-20 16:00] VITALS: O2SAT 91
--- NOTE | 2017-07-20 17:16 | Progress Note ---
Medicine Progress Note Date & Time of Visit: Jul 20, 2017 at 12:00. Subjective Pt was seen and examined He was sleeping comfortable in bed taking a nap Upon entered I called his name and he woke up Pt said that he continue to have watery diarrhea He said that he already had 4 episodes of BM today Pt had not called the nurse to check the stools Today he called the nurse after he had an episode of Diarrhea Nurse confirmed it was diarrhea. Objective Last 8 Hrs Date Time Temp Pulse Resp B/P (MAP) Pulse Ox O2 Delivery O2 Flow Rate FiO2 07/20/17 16:00 91 Room Air 07/20/17 15:11 36.6 83 24 122/77 (92) 91 Room Air Physical Exam: General- No acute distress Head- atraumatic Eyes- PERRL, EOMI ENT- oropharynx clear Neck- supple, no JVD Lungs- No wheezing Heart- regular Abdomen- normal bowel sounds, soft Extremities- no calf tenderness, wound in R arm area with no drainage and erythema Neuro- alert, oriented x 3; PERRL, EOMI Skin- warm & dry Laboratory Results: Last 24 Hours Test 07/20/17 06:11 White Blood Count 7.82 K/uL Red Blood Count 2.81 M/uL Hemoglobin 8.1 g/dL Hematocrit 26.2 % Mean Corpuscular Volume 93.2 fL Mean Corpuscular Hemoglobin 28.8 pg Mean Corpuscular Hemoglobin Concent 30.9 g/dl RDW Standard Deviation 54.3 fL RDW Coefficient of Variation 15.8 % Platelet Count 417 K/uL Mean Platelet Volume 8.7 fL Sodium Level 135 mmol/L Potassium Level 4.0 mmol/L Chloride Level 103 mmol/L Carbon Dioxide Level 28 mmol/L Anion Gap 5.0 mmol/L Blood Urea Nitrogen 7 mg/dl Creatinine 0.74 mg/dl Est Creatinine Clear Calc Drug Dose 115.5 ml/min Estimated GFR () 113.8 Estimated GFR (Non- 98.2 BUN/Creatinine Ratio 9.1 Random Glucose 88 mg/dl Calcium Level 8.1 mg/dl Assessment & Plan Watery Diarrhea associated Abdominal pain Colitis S/P c-diff on 06/25/17 treated with flagyl x [address] Abd/Pelvis showed findings consistent with a nonspecific pancolitis WBC on admission mildly elevated WBC today trending down to normal Stool for Cdiff pending Continue Vanco 125 mg QID Continue IVF and pain control GI on board 07/20 Stool for C-diff negative As per pt he had about 4 episodes diarrhea today continue vancomycin 125 mg QID as per Gastro Gastro recommended outpatient colonoscopy in 4 to 6 weeks Continue pain control tolerated diet Continue gentle IVF COPD No acute exacerbation CXR on admission showed interval development of right upper lung zone and right lower lung zone airspace opacities suspicious for a multifocal pneumonia. Received Zosyn and Levaquin in the ER Abx did not continue Procalcitonin negative Xopenex prn SOB/wheezing continue breo Stable Hx SYNCOPE ECHO 06/25/17: EF: 55-60%, Aortic valve sclerosis without stenosis Stable WOUND R ARM Hx laceration several weeks ago and had wound dehiscence after suture removal. Wound cx collected Dr Cooper wound care consulted S/P debridement by wound care physician MRI showed no evidence for osteomyelitis, no abscess and no collection Wound cx grew coag negative staph, possible colonization Afebrile, No leukocytosis, procalcitonin normal and negative MRI-- will hold on antibiotic for now Will need to arrange for a wound vac Close follow up with wound care Daily wound care HTN BP stable Continue metoprolol and amlodipine Stable Anemia Hbg 8.1 continue monitor CBC CHRONIC CERVICAL & BACK PAIN IV dilaudid 0.5 mg q4h and Percocet HART'S ESOPHAGUS continue Protonix DEPRESSION Suicidal ideations Continue Paxil Stable DVT PROPHYLAXIS Lovenox SQ CODE STATUS FULL NO MECH VENTILATION Disposition Will discharge once medically stable Consultants: Gastro Wound Care Current Inpatient Medications: Current Inpatient Medications Medications (Trade) Dose Ordered Sig/Tyree Route Start Time Stop Time Status Last Admin Dose Admin Sodium Chloride 1,000 ml @ 50 mls/hr Q20H IV 07/16/17 15:30 08/15/17 15:29 07/20/17 10:56 50 MLS/HR Enoxaparin Sodium (Lovenox Inj) 40 mg Q24H SC 07/16/17 20:00 08/15/17 19:59 07/19/17 21:26 40 MG Vancomycin HCl (Vancomycin Oral Soln) 125 mg QID PO 07/16/17 20:00 07/26/17 19:59 Future hold 07/20/17 13:08 125 MG Amlodipine Besylate (Norvasc Tab) 10 mg QAM PO 07/17/17 09:00 08/16/17 08:59 07/20/17 07:16 10 MG Metoprolol Succinate (Toprol Xl Tab) 100 mg QAM PO 07/17/17 09:00 08/16/17 08:59 07/20/17 07:16 100 MG Pantoprazole Sodium (Protonix Tab) 40 mg QAM PO 07/17/17 09:00 08/16/17 08:59 07/20/17 07:16 40 MG Paroxetine HCl (pAXil TAB) 20 mg DAILY PO 07/17/17 09:00 08/16/17 08:59 07/20/17 07:16 20 MG Zolpidem Tartrate (Ambien Tab) 10 mg HS PRN PO 07/16/17 16:15 08/15/17 16:14 07/19/17 22:40 10 MG Miscellaneous Information (Order Awaiting Action) 1 ea QS N/A 07/17/17 00:00 08/16/17 00:00 Ondansetron HCl (Zofran Inj) 4 mg Q6H PRN IV 07/16/17 17:15 08/15/17 17:14 Aspirin (Ecotrin Tab) 81 mg DAILY PO 07/17/17 09:00 08/16/17 08:59 07/20/17 07:17 81 MG Raspberry (Raspberry Syrup 5ml Cup) 5 ml QID PO 07/16/17 20:00 07/30/17 19:59 07/20/17 13:08 5 ML Lactobacillus Acidophilus (Floranex Tab) 4 tab BID PO 07/17/17 09:00 08/16/17 08:59 07/20/17 07:17 4 TAB Hydromorphone HCl (Dilaudid Inj) 0.5 mg Q4 PRN IV 07/17/17 09:30 07/30/17 15:59 07/20/17 15:49 0.5 MG Ipratropium [place] (Atrovent 0.02% 0.5MG/2.5ML Neb) 0.5 mg Q6R INH 07/17/17 15:00 08/16/17 14:59 07/20/17 07:00 0.5 MG Levalbuterol (Xopenex 0.63 Mg/ 3 Ml Neb) 0.63 mg Q6R INH 07/17/17 15:00 08/16/17 14:59 07/20/17 07:00 0.63 MG Ipratropium [place] (Atrovent 0.02% 0.5MG/2.5ML Neb) 0.5 mg Q4R PRN INH 07/17/17 09:45 08/16/17 09:44 Levalbuterol (Xopenex 0.63 Mg/ 3 Ml Neb) 0.63 mg Q4R PRN INH 07/17/17 09:45 08/16/17 09:44 Oxycodone/ Acetaminophen (Percocet 5-325mg Tab) 1 tab Q6H PRN PO 07/18/17 17:15 08/01/17 17:14 07/20/17 10:56 1 TAB Gadobutrol (Gadavist) 8.5 mmol UD PRN IV 07/20/17 10:45 07/24/17 10:44
[2017-07-20 19:21] VITALS: PULSE 77; O2SAT 91
[2017-07-20] MEDS: ENOXAPARIN 40 MG/0.4 ML SYR SC SCH (19:28)
[2017-07-20] MEDS: ZOLPIDEM TARTRATE 10 MG TAB PO PRN (21:05)
[2017-07-21 00:18] VITALS: BP 134/84; PULSE 94; TEMP 36.8; O2SAT 92
[2017-07-21] MEDS: HYDROmorphone INJ 0.5 MG/0.5 ML SYR IV PRN ×5 (02:33→21:09)
[2017-07-21] MEDS: LEVALBUTEROL 0.63MG/3 ML NEB INH SCH ×4 (02:46→19:40)
[2017-07-21] MEDS: IPRATROPIUM BROMIDE NEB SOLN 0.02% 2.5 ML VIAL INH SCH ×4 (02:46→19:40)
[2017-07-21] MEDS: OXYCODONE/ACETAMINOPHEN 5-325 TAB PO PRN ×3 (03:31→16:05)
[2017-07-21] MEDS: SODIUM CHLORIDE 0.9% 1000ML 1,000 ML IV SCH (03:32)
[2017-07-21 07:01] VITALS: PULSE 79; O2SAT 92
[2017-07-21 08:04] LABS: HEMATOCRIT 28.9 % (42-52); MEAN CELL VOLUME 92.9 fL (80-100); MEAN CORPUSCULAR HEMOGLOBIN 28.9 pg (25-34); MEAN CORPUSCULAR HGB CONC 31.1 g/dl (32-36); MEAN PLATELET VOLUME 8.6 fL (7.4-10.4); PLATELET COUNT 552 K/uL (130-400); RED CELL DISTRIBUTION WIDTH CV 15.6 % (11.5-14.5); RED CELL DISTRIBUTION WIDTH SD 52.8 fL (36.4-46.3); WHITE BLOOD COUNT 7.43 K/uL (4.8-10.8)
[2017-07-21] MEDS: PAROXETINE 20 MG TAB PO SCH (08:20)
[2017-07-21] MEDS: METOPROLOL SUCC 50MG EXT REL TAB PO SCH (08:20)
[2017-07-21] MEDS: PANTOprazole SOD 40 MG TAB PO SCH (08:20)
[2017-07-21] MEDS: AMLODIPINE BESYLATE 5 MG TAB PO SCH (08:20)
[2017-07-21] MEDS: RASPBERRY SYRUP 5 ML UDP PO SCH ×4 (08:21→21:02)
[2017-07-21] MEDS: VANCOMYCIN HCL 125 MG/2.5ML SOLN PO SCH ×4 (08:21→21:02)
[2017-07-21] MEDS: LACTOBACILLUS ACIDOPHILUS (FLORANEX) TAB PO SCH ×2 (08:21→21:03)
[2017-07-21] MEDS: ASPIRIN 81 MG ECTAB PO SCH (08:21)
[2017-07-21 08:36] LABS: CALCIUM 8.4 mg/dl (8.5-10.1); CREATININE 0.8 mg/dl (0.60-1.40); POTASSIUM 3.7 mmol/L (3.5-5.1)
[2017-07-21 08:46] VITALS: BP 153/79; PULSE 105; TEMP 36.6; O2SAT 93
[2017-07-21 14:24] VITALS: PULSE 84; O2SAT 90
[2017-07-21 15:52] VITALS: BP 142/82; PULSE 94; TEMP 36.7; O2SAT 94
--- NOTE | 2017-07-21 19:30 | Progress Note ---
Medicine Progress Note Date & Time of Visit: Jul 21, 2017 at 19:25. Subjective Pt was seen and examined Lying in bed with no distress Pt said that the diarrhea seems to improve He said that his stools is getting formed he said that the wound is looking better denies any chest pain, palpitation, dizziness and SOB Objective Last 8 Hrs Date Time Temp Pulse Resp B/P (MAP) Pulse Ox O2 Delivery O2 Flow Rate FiO2 07/21/17 16:30 Room Air 07/21/17 15:52 36.7 94 18 142/82 (102) 94 Room Air 07/21/17 14:24 84 16 90 Room Air Physical Exam: General- No acute distress Head- atraumatic Eyes- PERRL, EOMI ENT- oropharynx clear Neck- supple, no JVD Lungs- No wheezing Heart- regular Abdomen- normal bowel sounds, soft Extremities- no calf tenderness, wound in R arm area with no drainage and erythema Neuro- alert, oriented x 3; PERRL, EOMI Skin- warm & dry Laboratory Results: Last 24 Hours Test 07/21/17 07:52 White Blood Count 7.43 K/uL Red Blood Count 3.11 M/uL Hemoglobin 9.0 g/dL Hematocrit 28.9 % Mean Corpuscular Volume 92.9 fL Mean Corpuscular Hemoglobin 28.9 pg Mean Corpuscular Hemoglobin Concent 31.1 g/dl RDW Standard Deviation 52.8 fL RDW Coefficient of Variation 15.6 % Platelet Count 552 K/uL Mean Platelet Volume 8.6 fL Sodium Level 137 mmol/L Potassium Level 3.7 mmol/L Chloride Level 103 mmol/L Carbon Dioxide Level 27 mmol/L Anion Gap 7.0 mmol/L Blood Urea Nitrogen 9 mg/dl Creatinine 0.80 mg/dl Est Creatinine Clear Calc Drug Dose 106.8 ml/min Estimated GFR () 110.2 Estimated GFR (Non- 95.1 BUN/Creatinine Ratio 11.3 Random Glucose 81 mg/dl Calcium Level 8.4 mg/dl Assessment & Plan Watery Diarrhea associated Abdominal pain Colitis S/P c-diff on 06/25/17 treated with flagyl x [address] Abd/Pelvis showed findings consistent with a nonspecific pancolitis WBC on admission mildly elevated WBC today trending down to normal Stool for Cdiff pending Continue Vanco 125 mg QID Continue IVF and pain control GI on board 07/21 Stool for C-diff negative Diarrhea improved continue vancomycin 125 mg QID as per Gastro Gastro recommended outpatient colonoscopy in 4 to 6 weeks Continue pain control tolerated diet Will d/c IVF tomorrow COPD No acute exacerbation CXR on admission showed interval development of right upper lung zone and right lower lung zone airspace opacities suspicious for a multifocal pneumonia. Received Zosyn and Levaquin in the ER Abx did not continue Procalcitonin negative Xopenex prn SOB/wheezing continue breo Stable Hx SYNCOPE ECHO 06/25/17: EF: 55-60%, Aortic valve sclerosis without stenosis Stable WOUND R ARM Hx laceration several weeks ago and had wound dehiscence after suture removal. Wound cx collected Dr Cooper wound care consulted S/P debridement by wound care physician MRI showed no evidence for osteomyelitis, no abscess and no collection Wound cx grew coag negative staph, possible colonization Afebrile, No leukocytosis, procalcitonin normal and negative MRI-- will hold on antibiotic for now Will need to arrange for a wound vac Close follow up with wound care Daily wound care Clinically improved HTN BP stable Continue metoprolol and amlodipine Stable Anemia Hbg 9 continue monitor CBC stable CHRONIC CERVICAL & BACK PAIN IV dilaudid 0.5 mg q4h and Percocet HART'S ESOPHAGUS continue Protonix DEPRESSION Suicidal ideations Continue Paxil Stable DVT PROPHYLAXIS Lovenox SQ CODE STATUS FULL NO MECH VENTILATION Disposition Will discharge once medically stable Consultants: Gastro Wound Care Current Inpatient Medications: Current Inpatient Medications Medications (Trade) Dose Ordered Sig/Tyree Route Start Time Stop Time Status Last Admin Dose Admin Sodium Chloride 1,000 ml @ 50 mls/hr Q20H IV 07/16/17 15:30 08/15/17 15:29 07/21/17 03:32 50 MLS/HR Enoxaparin Sodium (Lovenox Inj) 40 mg Q24H SC 07/16/17 20:00 08/15/17 19:59 07/20/17 19:28 40 MG Vancomycin HCl (Vancomycin Oral Soln) 125 mg QID PO 07/16/17 20:00 07/26/17 19:59 Future hold 07/21/17 16:51 125 MG Amlodipine Besylate (Norvasc Tab) 10 mg QAM PO 07/17/17 09:00 08/16/17 08:59 07/21/17 08:20 10 MG Metoprolol Succinate (Toprol Xl Tab) 100 mg QAM PO 07/17/17 09:00 08/16/17 08:59 07/21/17 08:20 100 MG Pantoprazole Sodium (Protonix Tab) 40 mg QAM PO 07/17/17 09:00 08/16/17 08:59 07/21/17 08:20 40 MG Paroxetine HCl (pAXil TAB) 20 mg DAILY PO 07/17/17 09:00 08/16/17 08:59 07/21/17 08:20 20 MG Zolpidem Tartrate (Ambien Tab) 10 mg HS PRN PO 07/16/17 16:15 08/15/17 16:14 07/20/17 21:05 10 MG Miscellaneous Information (Order Awaiting Action) 1 ea QS N/A 07/17/17 00:00 08/16/17 00:00 Ondansetron HCl (Zofran Inj) 4 mg Q6H PRN IV 07/16/17 17:15 08/15/17 17:14 Aspirin (Ecotrin Tab) 81 mg DAILY PO 07/17/17 09:00 08/16/17 08:59 07/21/17 08:21 81 MG Raspberry (Raspberry Syrup 5ml Cup) 5 ml QID PO 07/16/17 20:00 07/30/17 19:59 07/21/17 16:51 5 ML Lactobacillus Acidophilus (Floranex Tab) 4 tab BID PO 07/17/17 09:00 08/16/17 08:59 07/21/17 08:21 4 TAB Hydromorphone HCl (Dilaudid Inj) 0.5 mg Q4 PRN IV 07/17/17 09:30 07/30/17 15:59 07/21/17 16:52 0.5 MG Ipratropium [place] (Atrovent 0.02% 0.5MG/2.5ML Neb) 0.5 mg Q6R INH 07/17/17 15:00 08/16/17 14:59 07/21/17 14:24 0.5 MG Levalbuterol (Xopenex 0.63 Mg/ 3 Ml Neb) 0.63 mg Q6R INH 07/17/17 15:00 08/16/17 14:59 07/21/17 14:24 0.63 MG Ipratropium [place] (Atrovent 0.02% 0.5MG/2.5ML Neb) 0.5 mg Q4R PRN INH 07/17/17 09:45 08/16/17 09:44 Levalbuterol (Xopenex 0.63 Mg/ 3 Ml Neb) 0.63 mg Q4R PRN INH 07/17/17 09:45 08/16/17 09:44 Oxycodone/ Acetaminophen (Percocet 5-325mg Tab) 1 tab Q6H PRN PO 07/18/17 17:15 08/01/17 17:14 07/21/17 16:05 1 TAB Gadobutrol (Gadavist) 8.5 mmol UD PRN IV 07/20/17 10:45 07/24/17 10:44
[2017-07-21 19:40] VITALS: PULSE 80; O2SAT 94
[2017-07-21] MEDS: ENOXAPARIN 40 MG/0.4 ML SYR SC SCH (21:02)
[2017-07-21] MEDS: ZOLPIDEM TARTRATE 10 MG TAB PO PRN (21:13)
[2017-07-22 00:15] VITALS: BP 129/69; PULSE 100; TEMP 36.6; O2SAT 92
[2017-07-22] MEDS: OXYCODONE/ACETAMINOPHEN 5-325 TAB PO PRN ×4 (00:17→21:26)
[2017-07-22] MEDS: SODIUM CHLORIDE 0.9% 1000ML 1,000 ML IV SCH ×2 (00:17→19:55)
[2017-07-22] MEDS: IPRATROPIUM BROMIDE NEB SOLN 0.02% 2.5 ML VIAL INH SCH ×4 (01:51→18:39)
[2017-07-22] MEDS: LEVALBUTEROL 0.63MG/3 ML NEB INH SCH ×4 (01:51→18:39)
[2017-07-22] MEDS: HYDROmorphone INJ 0.5 MG/0.5 ML SYR IV PRN ×6 (02:46→22:58)
[2017-07-22] MEDS: VANCOMYCIN HCL 125 MG/2.5ML SOLN PO SCH ×4 (07:15→20:15)
[2017-07-22] MEDS: RASPBERRY SYRUP 5 ML UDP PO SCH ×4 (07:15→20:15)
[2017-07-22] MEDS: PAROXETINE 20 MG TAB PO SCH (07:16)
[2017-07-22] MEDS: METOPROLOL SUCC 50MG EXT REL TAB PO SCH (07:16)
[2017-07-22] MEDS: AMLODIPINE BESYLATE 5 MG TAB PO SCH (07:16)
[2017-07-22] MEDS: LACTOBACILLUS ACIDOPHILUS (FLORANEX) TAB PO SCH ×2 (07:16→20:16)
[2017-07-22] MEDS: PANTOprazole SOD 40 MG TAB PO SCH (07:16)
[2017-07-22] MEDS: ASPIRIN 81 MG ECTAB PO SCH (07:17)
[2017-07-22 07:20] VITALS: BP 126/75; PULSE 94; TEMP 36.8; O2SAT 90
[2017-07-22 07:25] VITALS: PULSE 101; O2SAT 89
[2017-07-22 15:28] VITALS: BP 142/73; TEMP 36.4; O2SAT 92
--- NOTE | 2017-07-22 16:44 | Progress Note ---
Medicine Progress Note Date & Time of Visit: Jul 22, 2017 at 16:42. Subjective Pt was seen and examined Lying in bed with no distress Pt said that he feels weak he said that his stools his loose denies any chest pain, palpitation, dizziness Objective Last 8 Hrs Date Time Temp Pulse Resp B/P (MAP) Pulse Ox O2 Delivery O2 Flow Rate FiO2 07/22/17 15:28 36.4 20 142/73 (96) 92 Room Air Physical Exam: General- No acute distress Head- atraumatic Eyes- PERRL, EOMI ENT- oropharynx clear Neck- supple, no JVD Lungs- No wheezing Heart- regular Abdomen- normal bowel sounds, soft Extremities- no calf tenderness, wound in R arm area with no drainage and erythema Neuro- alert, oriented x 3; PERRL, EOMI Skin- warm & dry Assessment & Plan Watery Diarrhea associated Abdominal pain Colitis S/P c-diff on 06/25/17 treated with flagyl x [address] Abd/Pelvis showed findings consistent with a nonspecific pancolitis WBC on admission mildly elevated WBC today trending down to normal Stool for Cdiff pending Continue Vanco 125 mg QID Continue IVF and pain control GI on board 07/22 Stool for C-diff negative Diarrhea improved continue vancomycin 125 mg QID as per Gastro Gastro recommended outpatient colonoscopy in 4 to 6 weeks Continue pain control tolerated diet Decrease IVF COPD No acute exacerbation CXR on admission showed interval development of right upper lung zone and right lower lung zone airspace opacities suspicious for a multifocal pneumonia. Received Zosyn and Levaquin in the ER Abx did not continue Procalcitonin negative Xopenex prn SOB/wheezing continue breo Stable Hx SYNCOPE ECHO 06/25/17: EF: 55-60%, Aortic valve sclerosis without stenosis Stable WOUND R ARM Hx laceration several weeks ago and had wound dehiscence after suture removal. Wound cx collected Dr Cooper wound care consulted S/P debridement by wound care physician MRI showed no evidence for osteomyelitis, no abscess and no collection Wound cx grew coag negative staph, possible colonization Afebrile, No leukocytosis, procalcitonin normal and negative MRI-- will hold on antibiotic for now Will need to arrange for a wound vac Close follow up with wound care Daily wound care Clinically improved HTN BP stable Continue metoprolol and amlodipine Stable Anemia Hbg 9 yesterday continue monitor CBC stable CHRONIC CERVICAL & BACK PAIN IV dilaudid 0.5 mg q4h and Percocet HART'S ESOPHAGUS continue Protonix DEPRESSION Suicidal ideations Continue Paxil Stable DVT PROPHYLAXIS Lovenox SQ CODE [facility]US [facility] Disposition Will discharge once medically stable Consultants: Gastro Wound Care Current Inpatient Medications: Current Inpatient Medications Medications (Trade) Dose Ordered Sig/Tyree Route Start Time Stop Time Status Last Admin Dose Admin Sodium Chloride 1,000 ml @ 50 mls/hr Q20H IV 07/16/17 15:30 08/15/17 15:29 07/22/17 00:17 50 MLS/HR Enoxaparin Sodium (Lovenox Inj) 40 mg Q24H SC 07/16/17 20:00 08/15/17 19:59 07/21/17 21:02 40 MG Vancomycin HCl (Vancomycin Oral Soln) 125 mg QID PO 07/16/17 20:00 07/26/17 19:59 Future hold 07/22/17 13:08 125 MG Amlodipine Besylate (Norvasc Tab) 10 mg QAM PO 07/17/17 09:00 08/16/17 08:59 07/22/17 07:16 10 MG Metoprolol Succinate (Toprol Xl Tab) 100 mg QAM PO 07/17/17 09:00 08/16/17 08:59 07/22/17 07:16 100 MG Pantoprazole Sodium (Protonix Tab) 40 mg QAM PO 07/17/17 09:00 08/16/17 08:59 07/22/17 07:16 40 MG Paroxetine HCl (pAXil TAB) 20 mg DAILY PO 07/17/17 09:00 08/16/17 08:59 07/22/17 07:16 20 MG Zolpidem Tartrate (Ambien Tab) 10 mg HS PRN PO 07/16/17 16:15 08/15/17 16:14 07/21/17 21:13 10 MG Miscellaneous Information (Order Awaiting Action) 1 ea QS N/A 07/17/17 00:00 08/16/17 00:00 Ondansetron HCl (Zofran Inj) 4 mg Q6H PRN IV 07/16/17 17:15 08/15/17 17:14 Aspirin (Ecotrin Tab) 81 mg DAILY PO 07/17/17 09:00 12/21/17 08:59 07/22/17 07:17 81 MG Raspberry (Raspberry Syrup 5ml Cup) 5 ml QID PO 07/16/17 20:00 07/30/17 19:59 07/22/17 13:08 5 ML Lactobacillus Acidophilus (Floranex Tab) 4 tab BID PO 07/17/17 09:00 08/16/17 08:59 07/22/17 07:16 4 TAB Hydromorphone HCl (Dilaudid Inj) 0.5 mg Q4 PRN IV 07/17/17 09:30 07/30/17 15:59 07/22/17 15:05 0.5 MG Ipratropium [place] (Atrovent 0.02% 0.5MG/2.5ML Neb) 0.5 mg Q6R INH 07/17/17 15:00 08/16/17 14:59 07/22/17 07:25 0.5 MG Levalbuterol (Xopenex 0.63 Mg/ 3 Ml Neb) 0.63 mg Q6R INH 07/17/17 15:00 08/16/17 14:59 07/22/17 07:25 0.63 MG Ipratropium [place] (Atrovent 0.02% 0.5MG/2.5ML Neb) 0.5 mg Q4R PRN INH 07/17/17 09:45 08/16/17 09:44 Levalbuterol (Xopenex 0.63 Mg/ 3 Ml Neb) 0.63 mg Q4R PRN INH 07/17/17 09:45 08/16/17 09:44 Oxycodone/ Acetaminophen (Percocet 5-325mg Tab) 1 tab Q6H PRN PO 07/18/17 17:15 08/01/17 17:14 07/22/17 15:36 1 TAB Gadobutrol (Gadavist) 8.5 mmol UD PRN IV 07/20/17 10:45 07/24/17 10:44
[2017-07-22 18:39] VITALS: PULSE 84; O2SAT 91
[2017-07-22] MEDS: ENOXAPARIN 40 MG/0.4 ML SYR SC SCH (20:15)
[2017-07-22] MEDS: ZOLPIDEM TARTRATE 10 MG TAB PO PRN (22:57)
[2017-07-22 23:32] VITALS: BP 130/85; PULSE 87; TEMP 36.5; O2SAT 90
[2017-07-23] VITALS (9 sets, daily range): BP systolic 115–145; BP diastolic 71–84; PULSE 73–120; TEMP 36.4–36.5; O2SAT 90–92
[2017-07-23] MEDS: LEVALBUTEROL 0.63MG/3 ML NEB INH SCH ×4 (02:10→20:55)
[2017-07-23] MEDS: IPRATROPIUM BROMIDE NEB SOLN 0.02% 2.5 ML VIAL INH SCH ×4 (02:10→20:55)
[2017-07-23] MEDS: HYDROmorphone INJ 0.5 MG/0.5 ML SYR IV PRN ×5 (04:15→21:02)
[2017-07-23] MEDS: OXYCODONE/ACETAMINOPHEN 5-325 TAB PO PRN ×3 (05:30→18:25)
[2017-07-23 07:11] LABS: HEMATOCRIT 29.9 % (42-52); HEMOGLOBIN 9.4 g/dL (14.0-18.0); MEAN CORPUSCULAR HEMOGLOBIN 28.9 pg (25-34); MEAN CORPUSCULAR HGB CONC 31.4 g/dl (32-36); MEAN PLATELET VOLUME 8.2 fL (7.4-10.4); PLATELET COUNT 668 K/uL (130-400); RED CELL DISTRIBUTION WIDTH CV 15.8 % (11.5-14.5); RED CELL DISTRIBUTION WIDTH SD 53.4 fL (36.4-46.3)
[2017-07-23 07:44] LABS: CALCIUM 8.9 mg/dl (8.5-10.1); CREATININE 0.75 mg/dl (0.60-1.40); POTASSIUM 3.8 mmol/L (3.5-5.1)
[2017-07-23] MEDS: PAROXETINE 20 MG TAB PO SCH (08:17)
[2017-07-23] MEDS: LACTOBACILLUS ACIDOPHILUS (FLORANEX) TAB PO SCH (08:17)
[2017-07-23] MEDS: PANTOprazole SOD 40 MG TAB PO SCH (08:17)
[2017-07-23] MEDS: VANCOMYCIN HCL 125 MG/2.5ML SOLN PO SCH ×4 (08:18→21:09)
[2017-07-23] MEDS: RASPBERRY SYRUP 5 ML UDP PO SCH ×4 (08:18→21:01)
[2017-07-23] MEDS: ASPIRIN 81 MG ECTAB PO SCH (08:18)
[2017-07-23] MEDS: METOPROLOL SUCC 50MG EXT REL TAB PO SCH (08:19)
[2017-07-23] MEDS: AMLODIPINE BESYLATE 5 MG TAB PO SCH (08:20)
[2017-07-23] MEDS ORDERED: CHOLESTYRAMINE LIGHT 4 GM PKT PO ONE (11:30)
--- NOTE | 2017-07-23 13:14 | Gastroenterology Progress Note ---
Progress Note Date of Service: Jul 23, 2017 Subjective Pt evaluation today including: conversation w/ patient, physical exam, chart review, lab review, review of studies, review of inpatient medication list Pt seen last week for diarrhea. He requested to see GI service again for ongoing diarrhea. He also mentioned no one had informed him of CT scan results. Hx of Cdiff currently on Vancomycin. BM frequency noted to have markedly slowed down. Last CT abd/pelvis obtained 07/16 - pancolitis, infectious vs inflammatory in nature. Review of Systems Constitutional: No fever, No chills Respiratory: + shortness of breath, No cough Cardiac: + palpitations Abdomen: + pain, + diarrhea, No nausea, No vomiting, No GI bleeding Medications Current Inpatient Medications Medications (Trade) Dose Ordered Sig/Tyree Route Start Time Stop Time Status Last Admin Dose Admin Sodium Chloride 1,000 ml @ 50 mls/hr Q20H IV 07/16/17 15:30 08/15/17 15:29 07/22/17 19:55 50 MLS/HR Enoxaparin Sodium (Lovenox Inj) 40 mg Q24H SC 07/16/17 20:00 08/15/17 19:59 07/22/17 20:15 40 MG Vancomycin HCl (Vancomycin Oral Soln) 125 mg QID PO 07/16/17 20:00 07/26/17 19:59 Future hold 07/23/17 12:34 125 MG Amlodipine Besylate (Norvasc Tab) 10 mg QAM PO 07/17/17 09:00 08/16/17 08:59 07/23/17 08:20 10 MG Metoprolol Succinate (Toprol Xl Tab) 100 mg QAM PO 07/17/17 09:00 08/16/17 08:59 07/23/17 08:19 100 MG Pantoprazole Sodium (Protonix Tab) 40 mg QAM PO 07/17/17 09:00 08/16/17 08:59 07/23/17 08:17 40 MG Paroxetine HCl (pAXil TAB) 20 mg DAILY PO 07/17/17 09:00 08/16/17 08:59 07/23/17 08:17 20 MG Zolpidem Tartrate (Ambien Tab) 10 mg HS PRN PO 07/16/17 16:15 08/15/17 16:14 07/22/17 22:57 10 MG Miscellaneous Information (Order Awaiting Action) 1 ea QS N/A 07/17/17 00:00 08/16/17 00:00 Ondansetron HCl (Zofran Inj) 4 mg Q6H PRN IV 07/16/17 17:15 08/15/17 17:14 Aspirin (Ecotrin Tab) 81 mg DAILY PO 07/17/17 09:00 08/16/17 08:59 07/23/17 08:18 81 MG Raspberry (Raspberry Syrup 5ml Cup) 5 ml QID PO 07/16/17 20:00 07/30/17 19:59 07/23/17 12:34 5 ML Lactobacillus Acidophilus (Floranex Tab) 4 tab BID PO 07/17/17 09:00 08/16/17 08:59 07/23/17 08:17 4 TAB Hydromorphone HCl (Dilaudid Inj) 0.5 mg Q4 PRN IV 07/17/17 09:30 07/30/17 15:59 07/23/17 12:35 0.5 MG Ipratropium [place] (Atrovent 0.02% 0.5MG/2.5ML Neb) 0.5 mg Q6R INH 07/17/17 15:00 08/16/17 14:59 07/23/17 07:29 0.5 MG Levalbuterol (Xopenex 0.63 Mg/ 3 Ml Neb) 0.63 mg Q6R INH 07/17/17 15:00 08/16/17 14:59 07/23/17 07:29 0.63 MG Ipratropium [place] (Atrovent 0.02% 0.5MG/2.5ML Neb) 0.5 mg Q4R PRN INH 07/17/17 09:45 08/16/17 09:44 Levalbuterol (Xopenex 0.63 Mg/ 3 Ml Neb) 0.63 mg Q4R PRN INH 07/17/17 09:45 08/16/17 09:44 Oxycodone/ Acetaminophen (Percocet 5-325mg Tab) 1 tab Q6H PRN PO 07/18/17 17:15 08/01/17 17:14 07/23/17 11:42 1 TAB Gadobutrol (Gadavist) 8.5 mmol UD PRN IV 07/20/17 10:45 07/24/17 10:44 Cholestyramine Resin (Questran Powder Light) 4 gm BID@10,22 PO 07/23/17 22:00 08/22/17 21:59 Objective Vital Signs Date Time Temp Pulse Resp B/P (MAP) Pulse Ox O2 Delivery O2 Flow Rate FiO2 07/23/17 11:01 90 07/23/17 08:20 106 123/71 (88) 07/23/17 07:29 120 22 92 Room Air 07/23/17 07:25 36.5 104 20 145/84 (104) 92 Room Air 07/23/17 07:10 Room Air 07/23/17 00:00 Room Air 07/22/17 23:32 36.5 87 20 130/85 (100) 90 Room Air 07/22/17 18:39 84 18 91 Room Air 07/22/17 16:30 Room Air 07/22/17 15:28 36.4 20 142/73 (96) 92 Room Air Physical Exam General Appearance: WD/WN, no apparent distress Eyes: normal inspection, PERRL, EOMI Neck: supple, no JVD, trachea midline Respiratory/Chest: + decreased breath sounds Cardiovascular: regular rate, rhythm, no gallop, no murmur Abdomen: normal bowel sounds, soft, + tenderness (mostly on L side of abd) Extremities: normal inspection, no pedal edema, no calf tenderness Neurologic/Psych: alert, normal mood/affect, oriented x 3 Skin: normal color, no jaundice, no rash Laboratory Results Last 24 Hours Test 07/23/17 06:59 White Blood Count 9.70 K/uL Red Blood Count 3.25 M/uL Hemoglobin 9.4 g/dL Hematocrit 29.9 % Mean Corpuscular Volume 92.0 fL Mean Corpuscular Hemoglobin 28.9 pg Mean Corpuscular Hemoglobin Concent 31.4 g/dl RDW Standard Deviation 53.4 fL RDW Coefficient of Variation 15.8 % Platelet Count 668 K/uL Mean Platelet Volume 8.2 fL Sodium Level 137 mmol/L Potassium Level 3.8 mmol/L Chloride Level 101 mmol/L Carbon Dioxide Level 27 mmol/L Anion Gap 9.0 mmol/L Blood Urea Nitrogen 8 mg/dl Creatinine 0.75 mg/dl Est Creatinine Clear Calc Drug Dose 113.9 ml/min Estimated GFR () 113.2 Estimated GFR (Non- 97.6 BUN/Creatinine Ratio 10.8 Random Glucose 84 mg/dl Calcium Level 8.9 mg/dl Assessment and Plan Pt is a 61 y/o male w Cdiff diarrhea. Bowel frequency slowed down but stools still diarrhea like per pt. 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 On exam mostly L sided abd pain. Tolerating diet well, no n/v - Complete Vancomycin 125mg QID x 14 days - Ok to add Questran 4g BID - Will add Florastor 500mg BID - If no improvement in diarrhea, will plan for colonoscopy in 4-6 week's time. Last colonoscopy in 2014 (adenomatous, hyperplastic polyps) Attg add I interviewed and examined pt, reviewed chart and labs, agree with plans as above. Pt with diarrhea, now recently improved with bile acid resin. Will sign off - please call with questions. If his diarrhea recurs during this admission, will plan inpt cscopy.
[2017-07-23] MEDS: SODIUM CHLORIDE 0.9% 1000ML 1,000 ML IV SCH (17:11)
--- NOTE | 2017-07-23 18:16 | Progress Note ---
Medicine Progress Note Date & Time of Visit: Jul 23, 2017 at 11:06. Subjective Pt was seen and examined Lying in bed with no distress Pt said that he continue to have the diarrhea Nurse cannot confirm because pt does not call anyone after his BM He said that he already had 2 BM He walked with PT today without his oxygen and his oxygen saturation dropped to 85% Pt used 3L oxygen at home Objective Last 8 Hrs Date Time Temp Pulse Resp B/P (MAP) Pulse Ox O2 Delivery O2 Flow Rate FiO2 07/23/17 16:00 90 Room Air 07/23/17 15:55 36.4 73 18 115/73 (87) 90 Room Air 07/23/17 14:17 80 16 90 Room Air 07/23/17 11:01 90 Physical Exam: General- No acute distress Head- atraumatic Eyes- PERRL, EOMI ENT- oropharynx clear Neck- supple, no JVD Lungs- Mild wheezing Heart- regular Abdomen- normal bowel sounds, soft Extremities- no calf tenderness, wound in R arm area with no drainage and erythema Neuro- alert, oriented x 3; PERRL, EOMI Skin- warm & dry Laboratory Results: Last 24 Hours Test 07/23/17 06:59 White Blood Count 9.70 K/uL Red Blood Count 3.25 M/uL Hemoglobin 9.4 g/dL Hematocrit 29.9 % Mean Corpuscular Volume 92.0 fL Mean Corpuscular Hemoglobin 28.9 pg Mean Corpuscular Hemoglobin Concent 31.4 g/dl RDW Standard Deviation 53.4 fL RDW Coefficient of Variation 15.8 % Platelet Count 668 K/uL Mean Platelet Volume 8.2 fL Sodium Level 137 mmol/L Potassium Level 3.8 mmol/L Chloride Level 101 mmol/L Carbon Dioxide Level 27 mmol/L Anion Gap 9.0 mmol/L Blood Urea Nitrogen 8 mg/dl Creatinine 0.75 mg/dl Est Creatinine Clear Calc Drug Dose 113.9 ml/min Estimated GFR () 113.2 Estimated GFR (Non- 97.6 BUN/Creatinine Ratio 10.8 Random Glucose 84 mg/dl Calcium Level 8.9 mg/dl Assessment & Plan Watery Diarrhea associated Abdominal pain Colitis S/P c-diff on 06/25/17 treated with flagyl x [address] Abd/Pelvis showed findings consistent with a nonspecific pancolitis WBC on admission mildly elevated WBC today trending down to normal Stool for Cdiff pending Continue Vanco 125 mg QID Continue IVF and pain control GI on board 07/23 Stool for C-diff negative Diarrhea improved continue vancomycin 125 mg QID as per Gastro Cholestyramine adding for the diarrhea Gastro recommended outpatient colonoscopy in 4 to 6 weeks Continue pain control tolerated diet D/C IVF COPD No acute exacerbation CXR on admission showed interval development of right upper lung zone and right lower lung zone airspace opacities suspicious for a multifocal pneumonia. Received Zosyn and Levaquin in the ER Abx did not continue Procalcitonin negative Xopenex prn SOB/wheezing continue breo Will add low dose of prednisone since wheezing heard on exam Stable Hx SYNCOPE ECHO 06/25/17: EF: 55-60%, Aortic valve sclerosis without stenosis Stable WOUND R ARM Hx laceration several weeks ago and had wound dehiscence after suture removal. Wound cx collected Dr Cooper wound care consulted S/P debridement by wound care physician MRI showed no evidence for osteomyelitis, no abscess and no collection Wound cx grew coag negative staph, possible colonization Afebrile, No leukocytosis, procalcitonin normal and negative MRI-- will hold on antibiotic for now Will need to arrange for a wound vac Close follow up with wound care Daily wound care Clinically improved Refused wound vac Refused to follow with wound clinic HTN BP stable Continue metoprolol and amlodipine Stable Anemia continue monitor CBC stable CHRONIC CERVICAL & BACK PAIN will D/C IV dilaudid 0.5 mg q4h Continue Percocet HART'S ESOPHAGUS continue Protonix DEPRESSION Suicidal ideations Continue Paxil Stable DVT PROPHYLAXIS Lovenox SQ CODE STATUS FULL NO MECH VENTILATION Disposition Discharge once medically stable Consultants: Gastro Wound Care Current Inpatient Medications: Current Inpatient Medications Medications (Trade) Dose Ordered Sig/Tyree Route Start Time Stop Time Status Last Admin Dose Admin Sodium Chloride 1,000 ml @ 50 mls/hr Q20H IV 07/16/17 15:30 08/15/17 15:29 07/23/17 17:11 50 MLS/HR Enoxaparin Sodium (Lovenox Inj) 40 mg Q24H SC 07/16/17 20:00 08/15/17 19:59 07/22/17 20:15 40 MG Vancomycin HCl (Vancomycin Oral Soln) 125 mg QID PO 07/16/17 20:00 07/26/17 19:59 Future hold 07/23/17 17:10 125 MG Amlodipine Besylate (Norvasc Tab) 10 mg QAM PO 07/17/17 09:00 08/16/17 08:59 07/23/17 08:20 10 MG Metoprolol Succinate (Toprol Xl Tab) 100 mg QAM PO 07/17/17 09:00 08/16/17 08:59 07/23/17 08:19 100 MG Pantoprazole Sodium (Protonix Tab) 40 mg QAM PO 07/17/17 09:00 08/16/17 08:59 07/23/17 08:17 40 MG Paroxetine HCl (pAXil TAB) 20 mg DAILY PO 07/17/17 09:00 08/16/17 08:59 07/23/17 08:17 20 MG Zolpidem Tartrate (Ambien Tab) 10 mg HS PRN PO 07/16/17 16:15 08/15/17 16:14 07/22/17 22:57 10 MG Miscellaneous Information (Order Awaiting Action) 1 ea QS N/A 07/17/17 00:00 08/16/17 00:00 Ondansetron HCl (Zofran Inj) 4 mg Q6H PRN IV 07/16/17 17:15 08/15/17 17:14 Aspirin (Ecotrin Tab) 81 mg DAILY PO 07/17/17 09:00 08/16/17 08:59 07/23/17 08:18 81 MG Raspberry (Raspberry Syrup 5ml Cup) 5 ml QID PO 07/16/17 20:00 07/30/17 19:59 07/23/17 17:10 5 ML Hydromorphone HCl (Dilaudid Inj) 0.5 mg Q4 PRN IV 07/17/17 09:30 07/30/17 15:59 07/23/17 17:11 0.5 MG Ipratropium [place] (Atrovent 0.02% 0.5MG/2.5ML Neb) 0.5 mg Q6R INH 07/17/17 15:00 08/16/17 14:59 07/23/17 14:17 0.5 MG Levalbuterol (Xopenex 0.63 Mg/ 3 Ml Neb) 0.63 mg Q6R INH 07/17/17 15:00 08/16/17 14:59 07/23/17 14:17 0.63 MG Ipratropium [place] (Atrovent 0.02% 0.5MG/2.5ML Neb) 0.5 mg Q4R PRN INH 07/17/17 09:45 08/16/17 09:44 Levalbuterol (Xopenex 0.63 Mg/ 3 Ml Neb) 0.63 mg Q4R PRN INH 07/17/17 09:45 08/16/17 09:44 Oxycodone/ Acetaminophen (Percocet 5-325mg Tab) 1 tab Q6H PRN PO 07/18/17 17:15 08/01/17 17:14 07/23/17 11:42 1 TAB Gadobutrol (Gadavist) 8.5 mmol UD PRN IV 07/20/17 10:45 07/24/17 10:44 Cholestyramine Resin (Questran Powder Light) 4 gm BID@ PO 07/23/17 22:00 08/22/17 21:59 Saccharomyces Boulardii (Florastor Cap) 500 mg BID PO 07/23/17 21:00 08/22/17 20:59
[2017-07-23] MEDS: ENOXAPARIN 40 MG/0.4 ML SYR SC SCH (20:59)
[2017-07-23] MEDS: SACCHAROMYCES BOUL (FLORASTOR) 250 MG CAP PO SCH (20:59)
[2017-07-23] MEDS: CHOLESTYRAMINE LIGHT 4 GM PKT PO SCH (21:00)
[2017-07-23] MEDS: ZOLPIDEM TARTRATE 10 MG TAB PO PRN (21:01)
[2017-07-24] VITALS (7 sets, daily range): BP systolic 113–148; BP diastolic 73–85; PULSE 82–97; TEMP 36.3–36.5; O2SAT 91–92
[2017-07-24] MEDS: OXYCODONE/ACETAMINOPHEN 5-325 TAB PO PRN ×4 (00:57→22:20)
[2017-07-24] MEDS: IPRATROPIUM BROMIDE NEB SOLN 0.02% 2.5 ML VIAL INH SCH ×4 (02:19→20:54)
[2017-07-24] MEDS: LEVALBUTEROL 0.63MG/3 ML NEB INH SCH ×4 (02:19→20:54)
[2017-07-24] MEDS: HYDROmorphone INJ 0.5 MG/0.5 ML SYR IV PRN ×5 (03:00→20:46)
[2017-07-24 07:29] LABS: HEMATOCRIT 29.2 % (42-52); HEMOGLOBIN 9.1 g/dL (14.0-18.0); MEAN CELL VOLUME 92.1 fL (80-100); MEAN CORPUSCULAR HEMOGLOBIN 28.7 pg (25-34); MEAN CORPUSCULAR HGB CONC 31.2 g/dl (32-36); MEAN PLATELET VOLUME 8.3 fL (7.4-10.4); PLATELET COUNT 675 K/uL (130-400); RED CELL DISTRIBUTION WIDTH CV 15.8 % (11.5-14.5); RED CELL DISTRIBUTION WIDTH SD 53.8 fL (36.4-46.3); WHITE BLOOD COUNT 7.38 K/uL (4.8-10.8)
[2017-07-24] MEDS: VANCOMYCIN HCL 125 MG/2.5ML SOLN PO SCH ×4 (07:58→20:49)
[2017-07-24] MEDS: SACCHAROMYCES BOUL (FLORASTOR) 250 MG CAP PO SCH ×2 (07:58→20:48)
[2017-07-24] MEDS: PAROXETINE 20 MG TAB PO SCH (07:58)
[2017-07-24] MEDS: ASPIRIN 81 MG ECTAB PO SCH (07:58)
[2017-07-24] MEDS: PANTOprazole SOD 40 MG TAB PO SCH (07:58)
[2017-07-24] MEDS: RASPBERRY SYRUP 5 ML UDP PO SCH ×4 (07:58→20:49)
[2017-07-24] MEDS: AMLODIPINE BESYLATE 5 MG TAB PO SCH (07:58)
[2017-07-24] MEDS: METOPROLOL SUCC 50MG EXT REL TAB PO SCH (07:59)
--- NOTE | 2017-07-24 09:57 | Discharge Instructions ---
Discharge Instructions Date of Service Jul 24, 2017. Admission Reason for Admission: Diarrhea, Pancolitis, Syncope Discharge Discharge Diagnosis / Problem: DIARRHEA /PANCOLITIS /INFECTED RT UPPER EXT WOUND Discharge Goals Goal(s): Decrease discomfort, Improve disease control, Diagnostic testing, Therapeutic intervention Activity Recommendations Activity Limitations: resume your previous activity . Instructions / Follow-Up Instructions / Follow-Up HOSPITAL FOLLOW UP : 07/30/2017 9:00 AM Zach Monroy MD [facility] WOUND CLINIC FOLLOW UP : Current Hospital Diet Patient's current hospital diet: Low Sodium Diet (2gm Na), AHA Diet (Heart Healthy) Discharge Diet Recommended Diet: AHA Diet (Heart Healthy), Low Sodium Diet (2gm Na) Pending Studies Studies pending at discharge: no Medical Emergencies . Who to Call and When: Medical Emergencies: If at any time you feel your situation is an emergency, please call 911 immediately. . Non-Emergent Contact Non-Emergency issues call your: Primary Care Provider . . "Provider Documentation" section prepared by Karen Tyson. . VTE Core Measure Inpt VTE Proph given/why not?: Enoxaparin (Lovenox)SQ
[2017-07-24] MEDS: CHOLESTYRAMINE LIGHT 4 GM PKT PO SCH ×2 (10:00→20:48)
--- NOTE | 2017-07-24 19:02 | Progress Note ---
Medicine Progress Note Date & Time of Visit: Jul 24, 2017 at 18:57. Subjective patient seen resting in bed, comfortable no BM today still has diffuse abdominal pain and tenderness- relieved by analgesics denies nausea/vomiting, tolerating regular diet states breathing, cough is improving ambulating with no problems was seen earlier by Dr. Tyson, patient was upset when inquired by Dr. Tyson regarding possible discharge he told Dr. Tyson that he wanted another provider Objective Last 8 Hrs Date Time Temp Pulse Resp B/P (MAP) Pulse Ox O2 Delivery O2 Flow Rate FiO2 07/24/17 16:00 91 Room Air 07/24/17 15:24 36.3 85 20 113/73 (86) 91 Room Air 07/24/17 14:30 97 16 92 Room Air Physical Exam: General- oriented x 3, not in distress Head- atraumatic Eyes- PERRL, EOMI, anicteric ENT- oropharynx clear Neck- supple, no JVD, no adenopathy, no thyromegaly Lungs- clear breath sounds bilaterally, no rales/wheezes Heart- regular rhythm; no murmur, no gallop, no rub appreciated Abdomen- normal bowel sounds, nondistended, soft, moderately tender on all quadrants, no masses or hepatosplenomegaly Extremities- no pretibial edema, no calf tenderness; peripheral pulses intact Neuro- alert, oriented x 3; no gross focal deficits Skin- warm & dry Laboratory Results: Last 24 Hours Test 07/24/17 06:54 White Blood Count 7.38 K/uL Red Blood Count 3.17 M/uL Hemoglobin 9.1 g/dL Hematocrit 29.2 % Mean Corpuscular Volume 92.1 fL Mean Corpuscular Hemoglobin 28.7 pg Mean Corpuscular Hemoglobin Concent 31.2 g/dl RDW Standard Deviation 53.8 fL RDW Coefficient of Variation 15.8 % Platelet Count 675 K/uL Mean Platelet Volume 8.3 fL Assessment & Plan PANCOLITIS C DIFF DIARRHEA S/P c-diff on 06/25/17 treated with flagyl x [address] Abd/Pelvis showed findings consistent with a nonspecific pancolitis Stool for C-diff negative continue vancomycin 125 mg QID X 14 days Cholestyramine added for diarrhea Florastor added improving Gastro recommended outpatient colonoscopy in 4 to 6 weeks continue to monitor COPD No acute exacerbation CXR on admission showed interval development of right upper lung zone and right lower lung zone airspace opacities suspicious for a multifocal pneumonia. Received Zosyn and Levaquin in the ER Procalcitonin negative Xopenex prn SOB/wheezing continue breo -- cough, breathing improving hold off on further antibiotics given C diff colitis Hx SYNCOPE ECHO 06/25/17: EF: 55-60%, Aortic valve sclerosis without stenosis Stable WOUND R ARM Hx laceration several weeks ago and had wound dehiscence after suture removal. Wound cx collected Dr Cooper wound care consulted S/P debridement by wound care physician MRI showed no evidence for osteomyelitis, no abscess and no collection Wound cx grew coag negative staph, possible colonization Afebrile, No leukocytosis, procalcitonin normal and negative MRI-- antibiotic held Daily wound care Clinically improved Refused wound vac Refused to follow with wound clinic HTN BP stable Continue metoprolol and amlodipine Stable Anemia continue monitor CBC stable CHRONIC CERVICAL & BACK PAIN IV dilaudid 0.5 mg q4h Continue Percocet HART'S ESOPHAGUS continue Protonix DEPRESSION Continue Paxil Stable DVT PROPHYLAXIS Lovenox SQ CODE STATUS FULL NO MECH VENTILATION Disposition Discharge once medically stable Consultants: Gastro Wound Care Consultants: Gastro Wound Care Current Inpatient Medications: Current Inpatient Medications Medications (Trade) Dose Ordered Sig/Tyree Route Start Time Stop Time Status Last Admin Dose Admin Enoxaparin Sodium (Lovenox Inj) 40 mg Q24H SC 07/16/17 20:00 08/15/17 19:59 07/23/17 20:59 40 MG Vancomycin HCl (Vancomycin Oral Soln) 125 mg QID PO 07/16/17 20:00 07/26/17 19:59 Future hold 07/24/17 16:47 125 MG Amlodipine Besylate (Norvasc Tab) 10 mg QAM PO 07/17/17 09:00 08/16/17 08:59 07/24/17 07:58 10 MG Metoprolol Succinate (Toprol Xl Tab) 100 mg QAM PO 07/17/17 09:00 08/16/17 08:59 07/24/17 07:59 100 MG Pantoprazole Sodium (Protonix Tab) 40 mg QAM PO 07/17/17 09:00 08/16/17 08:59 07/24/17 07:58 40 MG Paroxetine HCl (pAXil TAB) 20 mg DAILY PO 07/17/17 09:00 08/16/17 08:59 07/24/17 07:58 20 MG Zolpidem Tartrate (Ambien Tab) 10 mg HS PRN PO 07/16/17 16:15 08/15/17 16:14 07/23/17 21:01 10 MG Miscellaneous Information (Order Awaiting Action) 1 ea QS N/A 07/17/17 00:00 08/16/17 00:00 Ondansetron HCl (Zofran Inj) 4 mg Q6H PRN IV 07/16/17 17:15 08/15/17 17:14 Aspirin (Ecotrin Tab) 81 mg DAILY PO 07/17/17 09:00 08/16/17 08:59 07/24/17 07:58 81 MG Raspberry (Raspberry Syrup 5ml Cup) 5 ml QID PO 07/16/17 20:00 07/30/17 19:59 07/24/17 16:47 5 ML Hydromorphone HCl (Dilaudid Inj) 0.5 mg Q4 PRN IV 07/17/17 09:30 07/30/17 15:59 07/24/17 16:47 0.5 MG Ipratropium [place] (Atrovent 0.02% 0.5MG/2.5ML Neb) 0.5 mg Q6R INH 07/17/17 15:00 08/16/17 14:59 07/24/17 14:30 0.5 MG Levalbuterol (Xopenex 0.63 Mg/ 3 Ml Neb) 0.63 mg Q6R INH 07/17/17 15:00 08/16/17 14:59 07/24/17 14:30 0.63 MG Ipratropium [place] (Atrovent 0.02% 0.5MG/2.5ML Neb) 0.5 mg Q4R PRN INH 07/17/17 09:45 08/16/17 09:44 Levalbuterol (Xopenex 0.63 Mg/ 3 Ml Neb) 0.63 mg Q4R PRN INH 07/17/17 09:45 08/16/17 09:44 Oxycodone/ Acetaminophen (Percocet 5-325mg Tab) 1 tab Q6H PRN PO 07/18/17 17:15 08/01/17 17:14 07/24/17 16:16 1 TAB Cholestyramine Resin (Questran Powder Light) 4 gm BID@ PO 07/23/17 22:00 08/22/17 21:59 07/23/17 21:00 4 GM Saccharomyces Boulardii (Florastor Cap) 500 mg BID PO 07/23/17 21:00 08/22/17 20:59 07/24/17 07:58 500 MG
[2017-07-24] MEDS: ENOXAPARIN 40 MG/0.4 ML SYR SC SCH (20:49)
[2017-07-24] MEDS: ZOLPIDEM TARTRATE 10 MG TAB PO PRN (22:20)
[2017-07-25] VITALS (8 sets, daily range): BP systolic 106–132; BP diastolic 62–77; PULSE 85–95; TEMP 36.3–36.5; O2SAT 90–93
[2017-07-25] MEDS: HYDROmorphone INJ 0.5 MG/0.5 ML SYR IV PRN ×6 (00:44→20:49)
[2017-07-25] MEDS: IPRATROPIUM BROMIDE NEB SOLN 0.02% 2.5 ML VIAL INH SCH ×4 (01:28→19:06)
[2017-07-25] MEDS: LEVALBUTEROL 0.63MG/3 ML NEB INH SCH ×4 (01:29→19:06)
[2017-07-25] MEDS: OXYCODONE/ACETAMINOPHEN 5-325 TAB PO PRN ×3 (04:15→18:48)
[2017-07-25] MEDS: PANTOprazole SOD 40 MG TAB PO SCH (07:42)
[2017-07-25] MEDS: RASPBERRY SYRUP 5 ML UDP PO SCH ×4 (07:42→20:49)
[2017-07-25] MEDS: METOPROLOL SUCC 50MG EXT REL TAB PO SCH (07:42)
[2017-07-25] MEDS: PAROXETINE 20 MG TAB PO SCH (07:42)
[2017-07-25] MEDS: AMLODIPINE BESYLATE 5 MG TAB PO SCH (07:42)
[2017-07-25] MEDS: ASPIRIN 81 MG ECTAB PO SCH (07:42)
[2017-07-25] MEDS: SACCHAROMYCES BOUL (FLORASTOR) 250 MG CAP PO SCH ×2 (07:42→20:51)
[2017-07-25] MEDS: VANCOMYCIN HCL 125 MG/2.5ML SOLN PO SCH ×4 (07:47→20:49)
[2017-07-25] MEDS: CHOLESTYRAMINE LIGHT 4 GM PKT PO SCH ×2 (09:51→20:51)
[2017-07-25] MEDS: ZOLPIDEM TARTRATE 10 MG TAB PO PRN (20:49)
[2017-07-25] MEDS: ENOXAPARIN 40 MG/0.4 ML SYR SC SCH (20:50)
--- NOTE | 2017-07-25 21:20 | Progress Note ---
Medicine Progress Note Date & Time of Visit: Jul 25, 2017 at 21:17. Subjective seen resting inbed, sleeping, comfortable states he continues to feel improved had 2 semi formed stools today abdominal pain improving breathing and cough continues to improve denies other symptoms would like to be discharged tomorrow Objective Last 8 Hrs Date Time Temp Pulse Resp B/P (MAP) Pulse Ox O2 Delivery O2 Flow Rate FiO2 07/25/17 19:06 91 16 93 Room Air 07/25/17 16:00 90 Room Air 07/25/17 15:52 36.3 85 22 106/62 (77) 90 Room Air 07/25/17 14:18 90 16 90 Room Air Physical Exam: General- oriented x 3, not in distress Eyes- EOMI, anicteric Neck- supple, no JVD Lungs- clear breath sounds bilaterally, no rales/wheezes Heart- regular rhythm; no murmur, normal rate Abdomen- normal bowel sounds, nondistended, soft, mild tenderness on all quadrants Extremities- no pretibial edema, no calf tenderness; peripheral pulses intact Neuro- alert, oriented x 3; no gross focal deficits Skin- warm & dry Assessment & Plan PANCOLITIS C DIFF DIARRHEA S/P c-diff on 06/25/17 treated with flagyl x [address] Abd/Pelvis showed findings consistent with a nonspecific pancolitis Stool for C-diff negative no diarrhea since yesterday continue vancomycin 125 mg QID X 14 days Cholestyramine added for diarrhea Florastor added Gastro recommended outpatient colonoscopy in 4 to 6 weeks continue to monitor COPD No acute exacerbation CXR on admission showed interval development of right upper lung zone and right lower lung zone airspace opacities suspicious for a multifocal pneumonia. Received Zosyn and Levaquin in the ER Procalcitonin negative Xopenex prn SOB/wheezing continue breo -- cough, breathing improving daily hold off on further antibiotics given C diff colitis Hx SYNCOPE ECHO 06/25/17: EF: 55-60%, Aortic valve sclerosis without stenosis Stable WOUND R ARM Hx laceration several weeks ago and had wound dehiscence after suture removal. Wound cx collected Dr Cooper wound care consulted S/P debridement by wound care physician MRI showed no evidence for osteomyelitis, no abscess and no collection Wound cx grew coag negative staph, possible colonization Afebrile, No leukocytosis, procalcitonin normal and negative MRI-- will hold on antibiotic for now Will need to arrange for a wound vac Close follow up with wound care Daily wound care Clinically improved Refused wound vac Refused to follow with wound clinic HTN BP stable Continue metoprolol and amlodipine Stable Anemia continue monitor CBC stable CHRONIC CERVICAL & BACK PAIN PRN IV dilaudid 0.5 mg q4h Continue Percocet HART'S ESOPHAGUS continue Protonix DEPRESSION Suicidal ideations Continue Paxil Stable DVT PROPHYLAXIS Lovenox SQ CODE STATUS FULL NO MECH VENTILATION Disposition Discharge once medically stable Consultants: Gastro Wound Care Consultants: Gastro Wound Care Current Inpatient Medications: Current Inpatient Medications Medications (Trade) Dose Ordered Sig/Tyree Route Start Time Stop Time Status Last Admin Dose Admin Enoxaparin Sodium (Lovenox Inj) 40 mg Q24H SC 07/16/17 20:00 08/15/17 19:59 07/25/17 20:50 40 MG Vancomycin HCl (Vancomycin Oral Soln) 125 mg QID PO 07/16/17 20:00 07/30/17 17:01 Future hold 07/25/17 20:49 125 MG Amlodipine Besylate (Norvasc Tab) 10 mg QAM PO 07/17/17 09:00 08/16/17 08:59 07/25/17 07:42 10 MG Metoprolol Succinate (Toprol Xl Tab) 100 mg QAM PO 07/17/17 09:00 08/16/17 08:59 07/25/17 07:42 100 MG Pantoprazole Sodium (Protonix Tab) 40 mg QAM PO 07/17/17 09:00 08/16/17 08:59 07/25/17 07:42 40 MG Paroxetine HCl (pAXil TAB) 20 mg DAILY PO 07/17/17 09:00 08/16/17 08:59 07/25/17 07:42 20 MG Zolpidem Tartrate (Ambien Tab) 10 mg HS PRN PO 07/16/17 16:15 08/15/17 16:14 07/25/17 20:49 10 MG Miscellaneous Information (Order Awaiting Action) 1 ea QS N/A 07/17/17 00:00 08/16/17 00:00 Ondansetron HCl (Zofran Inj) 4 mg Q6H PRN IV 07/16/17 17:15 08/15/17 17:14 Aspirin (Ecotrin Tab) 81 mg DAILY PO 07/17/17 09:00 08/16/17 08:59 07/25/17 07:42 81 MG Raspberry (Raspberry Syrup 5ml Cup) 5 ml QID PO 07/16/17 20:00 07/30/17 19:59 07/25/17 20:49 5 ML Hydromorphone HCl (Dilaudid Inj) 0.5 mg Q4 PRN IV 07/17/17 09:30 07/30/17 15:59 07/25/17 20:49 0.5 MG Ipratropium [place] (Atrovent 0.02% 0.5MG/2.5ML Neb) 0.5 mg Q6R INH 07/17/17 15:00 08/16/17 14:59 07/25/17 19:06 0.5 MG Levalbuterol (Xopenex 0.63 Mg/ 3 Ml Neb) 0.63 mg Q6R INH 07/17/17 15:00 08/16/17 14:59 07/25/17 19:06 0.63 MG Ipratropium [place] (Atrovent 0.02% 0.5MG/2.5ML Neb) 0.5 mg Q4R PRN INH 07/17/17 09:45 08/16/17 09:44 Levalbuterol (Xopenex 0.63 Mg/ 3 Ml Neb) 0.63 mg Q4R PRN INH 07/17/17 09:45 08/16/17 09:44 Oxycodone/ Acetaminophen (Percocet 5-325mg Tab) 1 tab Q6H PRN PO 07/18/17 17:15 08/01/17 17:14 07/25/17 18:48 1 TAB Cholestyramine Resin (Questran Powder Light) 4 gm BID@ PO 07/23/17 22:00 08/22/17 21:59 07/23/17 21:00 4 GM Saccharomyces Boulardii (Florastor Cap) 500 mg BID PO 07/23/17 21:00 08/22/17 20:59 07/25/17 07:42 500 MG
[2017-07-26] VITALS (9 sets, daily range): BP systolic 106–132; BP diastolic 69–74; PULSE 84–100; TEMP 36.5–36.6; O2SAT 91–94
[2017-07-26] MEDS: HYDROmorphone INJ 0.5 MG/0.5 ML SYR IV PRN ×5 (00:52→19:50)
[2017-07-26] MEDS: IPRATROPIUM BROMIDE NEB SOLN 0.02% 2.5 ML VIAL INH SCH ×4 (02:04→19:56)
[2017-07-26] MEDS: LEVALBUTEROL 0.63MG/3 ML NEB INH SCH ×4 (02:04→19:56)
[2017-07-26] MEDS: ASPIRIN 81 MG ECTAB PO SCH (07:31)
[2017-07-26] MEDS: PANTOprazole SOD 40 MG TAB PO SCH (07:31)
[2017-07-26] MEDS: AMLODIPINE BESYLATE 5 MG TAB PO SCH (07:31)
[2017-07-26] MEDS: PAROXETINE 20 MG TAB PO SCH (07:31)
[2017-07-26] MEDS: RASPBERRY SYRUP 5 ML UDP PO SCH ×4 (07:31→21:25)
[2017-07-26] MEDS: METOPROLOL SUCC 50MG EXT REL TAB PO SCH (07:31)
[2017-07-26] MEDS: VANCOMYCIN HCL 125 MG/2.5ML SOLN PO SCH ×4 (07:31→21:25)
[2017-07-26] MEDS: SACCHAROMYCES BOUL (FLORASTOR) 250 MG CAP PO SCH ×2 (07:32→21:00)
[2017-07-26] MEDS: OXYCODONE/ACETAMINOPHEN 5-325 TAB PO PRN ×3 (07:33→19:14)
[2017-07-26 09:08] LABS: CALCIUM 8.8 mg/dl (8.5-10.1); CREATININE 0.96 mg/dl (0.60-1.40); POTASSIUM 3.7 mmol/L (3.5-5.1)
[2017-07-26] MEDS: CHOLESTYRAMINE LIGHT 4 GM PKT PO SCH ×2 (09:56→21:27)
[2017-07-26] MEDS: NSS + 20MEQ KCL 1000ML 1,000 ML IV SCH ×2 (14:22→22:09)
--- NOTE | 2017-07-26 14:31 | DIAGNOSTIC IMAGING REPORT ---
CHEST ONE VIEW PORTABLE HISTORY: 61 years-old Male ff up, r/o pneumonia follow-up study in a patient with multiple opacities seen on comparison study COMPARISON: Chest radiograph 07/16/2017, CTA chest 06/24/2017 TECHNIQUE: Portable upright AP view of the chest FINDINGS: Patient is slightly rotated. Cardiac silhouette is within normal limits. Mild biapical pleural-parenchymal scarring. No pneumothorax or pleural effusion. Emphysema with chronic background interstitial coarsening redemonstrated. Multifocal alveolar opacities are again seen throughout the right lung, notably within the distribution of the right upper and lower lung zones which appear stable to slightly progressed from comparison. Bones and chest appear grossly intact. IMPRESSION: 1. Multifocal alveolar opacities throughout the right lung are again seen, notably within the upper and lower lung zones suggesting ongoing multifocal pneumonia. These appear stable to slightly progressed from prior study. Follow-up recommended. 2. Emphysema. The above report was generated using voice recognition software. It may contain grammatical, syntax or spelling errors. Electronically signed by: Des Olivier M.D. 07/26/2017 2:30 PM Dictated Date/Time: 07/26/2017 2:27 PM
--- NOTE | 2017-07-26 18:43 | Progress Note ---
Medicine Progress Note Date & Time of Visit: Jul 26, 2017 at 18:37. Subjective patient seen resting in bed states he had 3-4 loose BMs today, no blood still has some abdominal pain, about the same felt dizzy starting this morning after ambulating in the halls, patient's O2 noted to be 88-89%at one point reports dizziness after walking Objective Last 8 Hrs Date Time Temp Pulse Resp B/P (MAP) Pulse Ox O2 Delivery O2 Flow Rate FiO2 07/26/17 16:00 92 Room Air 07/26/17 15:52 36.5 84 18 111/69 (83) 92 Room Air 07/26/17 14:48 85 16 92 Room Air 07/26/17 12:43 36.6 89 16 94 Room Air Physical Exam: General- oriented x 3, not in distress Eyes- anicteric Neck- no JVD Lungs- clear breath sounds BL, no rales/wheezes Heart- regular rhythm; no murmur, normal rate Abdomen- normal bowel sounds, nondistended, soft, mild tenderness on all quadrants Extremities- no pretibial edema, no calf tenderness Neuro- alert, oriented x 3; no gross focal deficits Skin- warm & dry Laboratory Results: Last 24 Hours Test 07/26/17 08:38 Sodium Level 136 mmol/L Potassium Level 3.7 mmol/L Chloride Level 99 mmol/L Carbon Dioxide Level 27 mmol/L Anion Gap 10.0 mmol/L Blood Urea Nitrogen 10 mg/dl Creatinine 0.96 mg/dl Est Creatinine Clear Calc Drug Dose 89.0 ml/min Estimated GFR () 97.1 Estimated GFR (Non- 83.8 BUN/Creatinine Ratio 10.6 Random Glucose 120 mg/dl Calcium Level 8.8 mg/dl Assessment & Plan PANCOLITIS C DIFF DIARRHEA S/P C-diff on 06/25/17 treated with flagyl x [address] Abd/Pelvis showed findings consistent with a nonspecific pancolitis Stool for C-diff negative reports loose stools today will re-consult GI continue vancomycin 125 mg QID to complete 14 days Cholestyramine added for diarrhea Florastor added Gastro recommended outpatient colonoscopy in 4 to 6 weeks continue to monitor COPD No acute exacerbation CXR on admission showed interval development of right upper lung zone and right lower lung zone airspace opacities suspicious for a multifocal pneumonia. Received Zosyn and Levaquin in the ER Procalcitonin negative Xopenex prn SOB/wheezing continue breo -- reports some dyspnea after ambulation today O2 sats after ambulating at one point 88-89% O2 sats at rest 93% -- CXR: persistent right upper and lower lobe infiltrates CT chest ordered -- hold off on antibiotics for now continue Nebs hold off on further antibiotics given C diff colitis Hx SYNCOPE ECHO 06/25/17: EF: 55-60%, Aortic valve sclerosis without stenosis Stable -- reports dizziness BP ok -- IV fluids ordered WOUND R ARM Hx laceration several weeks ago and had wound dehiscence after suture removal. Wound cx collected Dr Cooper wound care consulted S/P debridement by wound care physician MRI showed no evidence for osteomyelitis, no abscess and no collection Wound cx grew coag negative staph, possible colonization Afebrile, No leukocytosis, procalcitonin normal and negative MRI-- will hold on antibiotic for now Daily wound care Clinically improved apparently declined, wound vac and follow up with wound clinic HTN BP stable Continue metoprolol and amlodipine Stable Anemia continue monitor CBC stable CHRONIC CERVICAL & BACK PAIN PRN IV dilaudid 0.5 mg q4h Continue Percocet HART'S ESOPHAGUS continue Protonix DEPRESSION Continue Paxil Stable DVT PROPHYLAXIS Lovenox SQ CODE STATUS FULL NO MECH VENTILATION Disposition Discharge once medically stable Consultants: Gastro Wound Care Consultants: Gastro Wound Care Current Inpatient Medications: Current Inpatient Medications Medications (Trade) Dose Ordered Sig/Tyree Route Start Time Stop Time Status Last Admin Dose Admin Enoxaparin Sodium (Lovenox Inj) 40 mg Q24H SC 07/16/17 20:00 08/15/17 19:59 07/25/17 20:50 40 MG Vancomycin HCl (Vancomycin Oral Soln) 125 mg QID PO 07/16/17 20:00 07/30/17 17:01 Future hold 07/26/17 17:50 125 MG Amlodipine Besylate (Norvasc Tab) 10 mg QAM PO 07/17/17 09:00 08/16/17 08:59 07/26/17 07:31 10 MG Metoprolol Succinate (Toprol Xl Tab) 100 mg QAM PO 07/17/17 09:00 08/16/17 08:59 07/26/17 07:31 100 MG Pantoprazole Sodium (Protonix Tab) 40 mg QAM PO 07/17/17 09:00 08/16/17 08:59 07/26/17 07:31 40 MG Paroxetine HCl (pAXil TAB) 20 mg DAILY PO 07/17/17 09:00 08/16/17 08:59 07/26/17 07:31 20 MG Zolpidem Tartrate (Ambien Tab) 10 mg HS PRN PO 07/16/17 16:15 08/15/17 16:14 07/25/17 20:49 10 MG Miscellaneous Information (Order Awaiting Action) 1 ea QS N/A 07/17/17 00:00 08/16/17 00:00 Ondansetron HCl (Zofran Inj) 4 mg Q6H PRN IV 07/16/17 17:15 08/15/17 17:14 Aspirin (Ecotrin Tab) 81 mg DAILY PO 07/17/17 09:00 08/16/17 08:59 07/26/17 07:31 81 MG Raspberry (Raspberry Syrup 5ml Cup) 5 ml QID PO 07/16/17 20:00 07/30/17 19:59 07/26/17 17:50 5 ML Hydromorphone HCl (Dilaudid Inj) 0.5 mg Q4 PRN IV 07/17/17 09:30 07/30/17 15:59 07/26/17 15:47 0.5 MG Ipratropium [place] (Atrovent 0.02% 0.5MG/2.5ML Neb) 0.5 mg Q6R INH 07/17/17 15:00 08/16/17 14:59 07/26/17 14:27 0.5 MG Levalbuterol (Xopenex 0.63 Mg/ 3 Ml Neb) 0.63 mg Q6R INH 07/17/17 15:00 08/16/17 14:59 07/26/17 14:27 0.63 MG Ipratropium [place] (Atrovent 0.02% 0.5MG/2.5ML Neb) 0.5 mg Q4R PRN INH 07/17/17 09:45 08/16/17 09:44 Levalbuterol (Xopenex 0.63 Mg/ 3 Ml Neb) 0.63 mg Q4R PRN INH 07/17/17 09:45 08/16/17 09:44 Oxycodone/ Acetaminophen (Percocet 5-325mg Tab) 1 tab Q6H PRN PO 07/18/17 17:15 08/01/17 17:14 07/26/17 14:05 1 TAB Cholestyramine Resin (Questran Powder Light) 4 gm BID@10,22 PO 07/23/17 22:00 08/22/17 21:59 07/23/17 21:00 4 GM Saccharomyces Boulardii (Florastor Cap) 500 mg BID PO 07/23/17 21:00 08/22/17 20:59 07/26/17 07:32 500 MG Potassium Chloride/Sodium Chloride 1,000 ml @ 125 mls/hr Q8H IV 07/26/17 13:45 08/25/17 13:44 07/26/17 14:22 125 MLS/HR
--- NOTE | 2017-07-26 19:07 | DIAGNOSTIC IMAGING REPORT ---
(CHEST) THORAX WITHOUT CT DOSE: 447.80 mGy.cm CLINICAL HISTORY: 61 years-old Male with r/o pneumonia, mass. Ongoing pneumonia concern for possible mass. TECHNIQUE: Multiaxial CT images of the chest were performed without contrast. A dose lowering technique was utilized adhering to the principles of ALARA. COMPARISON: Chest radiograph of same day, chest CT 06/24/2017. FINDINGS: No dominant thyroid nodule identified. Evaluation for adenopathy is limited without the use of contrast. Mediastinal adenopathy redemonstrated. Right peritracheal lymph node measures 1.9 x 1.2 cm on image 12 series 4, previously measuring 1.5 x 0.8 cm. Enlarged precarinal lymph node measures 1.6 x 1.3 cm, unchanged. Heart is normal in size without pericardial effusion. Coronary arterial calcifications are noted. Moderate atherosclerosis of the aorta without aneurysm identified. Small right pleural effusion. There is no pneumothorax. Advanced centrilobular emphysematous changes redemonstrated. Pleural parenchymal scarring of the lung apices. Bilateral bronchial wall thickening compatible with bronchitis. Subsegmental consolidative opacities are present within the basal left lower lobe. Multifocal patchy groundglass and consolidative opacities are present throughout the right lower and middle lobes which overall appears similar from comparison. There is however progressively worsened consolidation of the right upper lobe with large airspace consolidation containing central air bronchograms measuring up to 6.2 x 4.0 cm within the right lung apex on image 58 series 4. This is new from prior. Scattered nodular opacities are also seen within this distribution. Central airways are patent. Subserosal 1.7 x 1.4 cm lesion of the posterior right hepatic lobe is unchanged, nonspecific. Additional low attenuating lesions are seen throughout the right and left hepatic lobes. These findings would suggest hepatic cysts or hemangiomas. Large cyst of the superior pole left kidney measures up to 7.3 cm. Dystrophic changes are seen within the inferior pole right kidney. There is mild wall thickening of the mid and distal esophagus with moderate hiatal hernia. Soft tissues are unremarkable. Mild symmetric bilateral gynecomastia. No suspicious lytic or blastic bony lesions identified. Mild multilevel endplate spurring of the spine. Remote right-sided rib fractures. IMPRESSION: 1. Progressively worsened multifocal groundglass and consolidative opacities of the right upper lobe with generally unchanged patchy consolidative, groundglass and nodular opacities of the lung bases, right greater than left suggests multifocal pneumonia and/or aspiration pneumonitis with small right parapneumonic effusion. Continued follow-up recommended. 2. Severe upper lobe predominant centrilobular emphysema with bronchitis. 3. Mild mediastinal adenopathy, likely reactive. 4. Moderate hiatal hernia. Mild wall thickening of the mid and distal esophagus suggests esophagitis. Electronically signed by: Des Olivier M.D. 07/26/2017 7:06 PM Dictated Date/Time: 07/26/2017 6:56 PM
[2017-07-26] MEDS: ENOXAPARIN 40 MG/0.4 ML SYR SC SCH (21:29)
[2017-07-27] VITALS (9 sets, daily range): BP systolic 116–133; BP diastolic 74–82; PULSE 73–89; TEMP 36.3–36.4; O2SAT 90–91
[2017-07-27] MEDS: HYDROmorphone INJ 0.5 MG/0.5 ML SYR IV PRN ×6 (00:08→20:36)
[2017-07-27] MEDS: ZOLPIDEM TARTRATE 10 MG TAB PO PRN ×2 (00:08→20:41)
[2017-07-27] MEDS: LEVALBUTEROL 0.63MG/3 ML NEB INH SCH ×6 (02:12→21:08)
[2017-07-27] MEDS: IPRATROPIUM BROMIDE NEB SOLN 0.02% 2.5 ML VIAL INH SCH ×6 (02:12→21:06)
[2017-07-27] MEDS: OXYCODONE/ACETAMINOPHEN 5-325 TAB PO PRN ×3 (02:44→18:14)
[2017-07-27] MEDS: NSS + 20MEQ KCL 1000ML 1,000 ML IV SCH ×3 (06:17→20:36)
[2017-07-27] MEDS: PANTOprazole SOD 40 MG TAB PO SCH (08:29)
[2017-07-27] MEDS: VANCOMYCIN HCL 125 MG/2.5ML SOLN PO SCH ×4 (08:29→20:36)
[2017-07-27] MEDS: SACCHAROMYCES BOUL (FLORASTOR) 250 MG CAP PO SCH ×2 (08:29→20:36)
[2017-07-27] MEDS: ASPIRIN 81 MG ECTAB PO SCH (08:29)
[2017-07-27] MEDS: PAROXETINE 20 MG TAB PO SCH (08:29)
[2017-07-27] MEDS: METOPROLOL SUCC 50MG EXT REL TAB PO SCH (08:29)
[2017-07-27] MEDS: AMLODIPINE BESYLATE 5 MG TAB PO SCH (08:29)
[2017-07-27] MEDS: RASPBERRY SYRUP 5 ML UDP PO SCH ×4 (08:30→20:37)
--- NOTE | 2017-07-27 09:53 | Progress Note ---
Medicine Progress Note Date & Time of Visit: Jul 27, 2017 at 09:32. Subjective patient seen resting in bed not in distress still has dyspnea with exertion, cough productive of yellow sputum, denies chest pain reports at least 5 loose BMs since last night, mild-moderate abdominal discomfort not as dizzy no other symptoms Objective Last 8 Hrs Date Time Temp Pulse Resp B/P (MAP) Pulse Ox O2 Delivery O2 Flow Rate FiO2 07/27/17 08:07 36.3 86 20 117/74 (88) 91 Room Air 07/27/17 06:58 87 16 91 Room Air Physical Exam: General- oriented x 3, not in distress Eyes- anicteric Neck- no JVD Lungs- clear breath sounds bilaterally,mild rales on the right, no wheezing Heart- regular rhythm; no murmur, normal rate Abdomen- normal bowel sounds, nondistended, soft, mild tenderness on all quadrants Extremities- no pretibial edema, no calf tenderness Neuro- alert, oriented x 3; no gross focal deficits Skin- warm & dry Assessment & Plan PANCOLITIS C DIFF DIARRHEA S/P C-diff on 06/25/17 treated with flagyl x [address] Abd/Pelvis showed findings consistent with a nonspecific pancolitis Stool for C-diff negative seems to be having loose stools again, has not been taking Cholestyramine, advised to take Cholestyramine for now continue vancomycin 125 mg QID day 07/10 Cholestyramine BID and Florastor discussed with GI, recommend to continue present management, take Cholestyramine daily and monitor Gastro recommended outpatient colonoscopy in 4 to 6 weeks continue to monitor RIGHT LUNG CONSOLIDATION AND OPACITIES - possible HCAP vs Aspiration - CT chest: IMPRESSION: 1. Progressively worsened multifocal groundglass and consolidative opacities of the right upper lobe with generally unchanged patchy consolidative, groundglass and nodular opacities of the lung bases, right greater than left suggests multifocal pneumonia and/or aspiration pneumonitis with small right parapneumonic effusion. Continued follow-up recommended. 2. Severe upper lobe predominant centrilobular emphysema with bronchitis. 3. Mild mediastinal adenopathy, likely reactive. 4. Moderate hiatal hernia. Mild wall thickening of the mid and distal esophagus suggests esophagitis. - treated for Pneumonia in 05/2017 - Pulmonary consulted, appreciate the recommendations may need to start antibiotics, and tapering Vancomycin doses to prevent C diff COPD CXR on admission showed interval development of right upper lung zone and right lower lung zone airspace opacities suspicious for a multifocal pneumonia. CT chest: as noted above does not seem to be in exacerbation - continue usual Bronchodilators - Pulmonary consulted Hx SYNCOPE ECHO 06/25/17: EF: 55-60%, Aortic valve sclerosis without stenosis Stable -- continue IV fluids WOUND R ARM Hx laceration several weeks ago and had wound dehiscence after suture removal. Dr Cooper wound care consulted S/P debridement by wound care physician MRI showed no evidence for osteomyelitis, no abscess and no collection Wound cx grew coag negative staph, possible colonization Afebrile, No leukocytosis, procalcitonin normal and negative MRI-- will hold on antibiotic for now Daily wound care apparently declined, wound vac and follow up with wound clinic HTN BP stable Continue metoprolol and amlodipine Stable Anemia stable CHRONIC CERVICAL & BACK PAIN PRN IV dilaudid 0.5 mg q4h Continue Percocet HART'S ESOPHAGUS continue Protonix DEPRESSION Continue Paxil Stable DVT PROPHYLAXIS Lovenox SQ CODE STATUS FULL NO MECH VENTILATION Disposition Discharge once medically stable Consultants: Gastro Wound Care Consultants: Gastro Wound Care Current Inpatient Medications: Current Inpatient Medications Medications (Trade) Dose Ordered Sig/Tyree Route Start Time Stop Time Status Last Admin Dose Admin Enoxaparin Sodium (Lovenox Inj) 40 mg Q24H SC 07/16/17 20:00 08/15/17 19:59 07/26/17 21:29 40 MG Vancomycin HCl (Vancomycin Oral Soln) 125 mg QID PO 07/16/17 20:00 07/30/17 17:01 Future hold 07/27/17 08:29 125 MG Amlodipine Besylate (Norvasc Tab) 10 mg QAM PO 07/17/17 09:00 08/16/17 08:59 07/27/17 08:29 10 MG Metoprolol Succinate (Toprol Xl Tab) 100 mg QAM PO 07/17/17 09:00 08/16/17 08:59 07/27/17 08:29 100 MG Pantoprazole Sodium (Protonix Tab) 40 mg QAM PO 07/17/17 09:00 08/16/17 08:59 07/27/17 08:29 40 MG Paroxetine HCl (pAXil TAB) 20 mg DAILY PO 07/17/17 09:00 08/16/17 08:59 07/27/17 08:29 20 MG Zolpidem Tartrate (Ambien Tab) 10 mg HS PRN PO 07/16/17 16:15 08/15/17 16:14 07/27/17 00:08 10 MG Miscellaneous Information (Order Awaiting Action) 1 ea QS N/A 07/17/17 00:00 08/16/17 00:00 Ondansetron HCl (Zofran Inj) 4 mg Q6H PRN IV 07/16/17 17:15 08/15/17 17:14 Aspirin (Ecotrin Tab) 81 mg DAILY PO 07/17/17 09:00 08/16/17 08:59 07/27/17 08:29 81 MG Raspberry (Raspberry Syrup 5ml Cup) 5 ml QID PO 07/16/17 20:00 07/30/17 19:59 07/27/17 08:30 5 ML Hydromorphone HCl (Dilaudid Inj) 0.5 mg Q4 PRN IV 07/17/17 09:30 07/30/17 15:59 07/27/17 08:30 0.5 MG Ipratropium [place] (Atrovent 0.02% 0.5MG/2.5ML Neb) 0.5 mg Q6R INH 07/17/17 15:00 08/16/17 14:59 07/27/17 06:58 0.5 MG Levalbuterol (Xopenex 0.63 Mg/ 3 Ml Neb) 0.63 mg Q6R INH 07/17/17 15:00 08/16/17 14:59 07/27/17 06:58 0.63 MG Ipratropium [place] (Atrovent 0.02% 0.5MG/2.5ML Neb) 0.5 mg Q4R PRN INH 07/17/17 09:45 08/16/17 09:44 Levalbuterol (Xopenex 0.63 Mg/ 3 Ml Neb) 0.63 mg Q4R PRN INH 07/17/17 09:45 08/16/17 09:44 Oxycodone/ Acetaminophen (Percocet 5-325mg Tab) 1 tab Q6H PRN PO 07/18/17 17:15 08/01/17 17:14 07/27/17 02:44 1 TAB Cholestyramine Resin (Questran Powder Light) 4 gm BID@10,22 PO 07/23/17 22:00 08/22/17 21:59 07/23/17 21:00 4 GM Saccharomyces Boulardii (Florastor Cap) 500 mg BID PO 07/23/17 21:00 08/22/17 20:59 07/27/17 08:29 500 MG Potassium Chloride/Sodium Chloride 1,000 ml @ 125 mls/hr Q8H IV 07/26/17 13:45 08/25/17 13:44 07/27/17 06:17 125 MLS/HR
[2017-07-27] MEDS ORDERED: PIPERACILL/TAZOBAC CONSULT ACTIVE SCH (10:14)
[2017-07-27] MEDS: CHOLESTYRAMINE LIGHT 4 GM PKT PO SCH ×2 (10:24→20:40)
[2017-07-27] MEDS ORDERED: PIPERACILL/TAZOBAC IV 3.375 GM in DEXTROSE 5% 100ML IV ONE (10:30)
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
[2017-07-27] MEDS: PIPERACILL/TAZOBAC IV 3.375 GM in DEXTROSE 5% 100ML IV SCH (17:20)
[2017-07-27] MEDS: ENOXAPARIN 40 MG/0.4 ML SYR SC SCH (20:39)
[2017-07-28] VITALS (9 sets, daily range): BP systolic 110–144; BP diastolic 68–89; PULSE 70–89; TEMP 36.3–36.4; O2SAT 90–94
[2017-07-28] MEDS: PIPERACILL/TAZOBAC IV 3.375 GM in DEXTROSE 5% 100ML IV SCH ×4 (00:25→23:49)
[2017-07-28] MEDS: OXYCODONE/ACETAMINOPHEN 5-325 TAB PO PRN ×5 (00:25→22:23)
[2017-07-28] MEDS: IPRATROPIUM BROMIDE NEB SOLN 0.02% 2.5 ML VIAL INH SCH ×4 (01:42→19:31)
[2017-07-28] MEDS: LEVALBUTEROL 0.63MG/3 ML NEB INH SCH ×4 (01:42→19:31)
[2017-07-28] MEDS: HYDROmorphone INJ 0.5 MG/0.5 ML SYR IV PRN ×5 (02:29→20:18)
[2017-07-28] MEDS: NSS + 20MEQ KCL 1000ML 1,000 ML IV SCH ×2 (06:25→13:45)
[2017-07-28 07:11] LABS: CREATININE 1.07 mg/dl (0.60-1.40)
[2017-07-28] MEDS: PANTOprazole SOD 40 MG TAB PO SCH (08:38)
[2017-07-28] MEDS: PAROXETINE 20 MG TAB PO SCH (08:39)
[2017-07-28] MEDS: METOPROLOL SUCC 50MG EXT REL TAB PO SCH (08:39)
[2017-07-28] MEDS: ASPIRIN 81 MG ECTAB PO SCH (08:39)
[2017-07-28] MEDS: AMLODIPINE BESYLATE 5 MG TAB PO SCH (08:39)
[2017-07-28] MEDS: SACCHAROMYCES BOUL (FLORASTOR) 250 MG CAP PO SCH ×2 (08:40→20:21)
[2017-07-28] MEDS: CHOLESTYRAMINE LIGHT 4 GM PKT PO SCH ×2 (09:10→20:22)
[2017-07-28] MEDS: RASPBERRY SYRUP 5 ML UDP PO SCH ×4 (09:10→20:22)
[2017-07-28] MEDS: VANCOMYCIN HCL 125 MG/2.5ML SOLN PO SCH ×4 (09:10→20:22)
[2017-07-28] MEDS ORDERED: NURSING VERBAL MED ORDER ONE (14:15)
--- NOTE | 2017-07-28 17:24 | Progress Note ---
Medicine Progress Note Date & Time of Visit: Jul 28, 2017 at 17:10. Subjective seen resting in bed, not in distress, comfortable appears brighter states he feels somewhat better today less dyspnea and dizziness with ambulation has occasional dry cough denies chest pain abdominal pain about the same no BMs since yesterday, but (+) flatus no nausea denies other symptoms Objective Last 8 Hrs Date Time Temp Pulse Resp B/P (MAP) Pulse Ox O2 Delivery O2 Flow Rate FiO2 07/28/17 16:00 93 Room Air 07/28/17 15:09 36.4 70 20 110/68 (82) 93 Room Air 07/28/17 14:06 77 16 93 Room Air 07/28/17 10:01 91 Room Air Physical Exam: General- oriented x 3, not in distress Eyes- anicteric Neck- no JVD Lungs- clear breath sounds bilaterally, mild rales at the Right Base, no wheezes Heart- regular rhythm; no murmur, normal rate Abdomen- normal bowel sounds, nondistended, soft, still with mild tenderness on all quadrants Extremities- no pretibial edema, no calf tenderness Neuro- alert, oriented x 3; no gross focal deficits Skin- warm & dry Laboratory Results: Last 24 Hours Test 07/28/17 06:23 Creatinine 1.07 mg/dl Est Creatinine Clear Calc Drug Dose 79.9 ml/min Estimated GFR () 85.2 Estimated GFR (Non- 73.5 Assessment & Plan PANCOLITIS C DIFF DIARRHEA S/P C-diff on 06/25/17 treated with flagyl x [address] Abd/Pelvis showed findings consistent with a nonspecific pancolitis Stool for C-diff negative no BM since yesterday, still has some abdominal pain, relieved with PRN Dilaudid and Percocet continue vancomycin 125 mg QID day 08/09 Cholestyramine BID and Florastor discussed with GI, recommend to continue present management, take Cholestyramine daily and monitor Gastro recommended outpatient colonoscopy in 4 to 6 weeks continue to monitor addressed pain medication regimen with patient at length recommended to decrease Dilaudid IV to q6h, patient requested strongly to keep it q4h for now as this manages his pain effectively at this time discussed with patient that prolonged IV narcotics may cause side effects including nausea, abdominal pain, ileus, obstruction, etc. but patient would still like to maintain present regimen, will address with patient again RIGHT LUNG CONSOLIDATION AND OPACITIES - possible HCAP vs Aspiration - CT chest: IMPRESSION: 1. Progressively worsened multifocal groundglass and consolidative opacities of the right upper lobe with generally unchanged patchy consolidative, groundglass and nodular opacities of the lung bases, right greater than left suggests multifocal pneumonia and/or aspiration pneumonitis with small right parapneumonic effusion. Continued follow-up recommended. 2. Severe upper lobe predominant centrilobular emphysema with bronchitis. 3. Mild mediastinal adenopathy, likely reactive. 4. Moderate hiatal hernia. Mild wall thickening of the mid and distal esophagus suggests esophagitis. - treated for Pneumonia in 05/2017 - Pulmonary consulted, appreciate the recommendations currently on Zosyn Day 2, Nebs breathing and cough improving improving will monitor COPD CXR on admission showed interval development of right upper lung zone and right lower lung zone airspace opacities suspicious for a multifocal pneumonia. CT chest: as noted above does not seem to be in exacerbation - continue usual Bronchodilators - Pulmonary consulted Hx SYNCOPE ECHO 06/25/17: EF: 55-60%, Aortic valve sclerosis without stenosis Stable WOUND R ARM Hx laceration several weeks ago and had wound dehiscence after suture removal. Dr Cooper wound care consulted S/P debridement by wound care physician MRI showed no evidence for osteomyelitis, no abscess and no collection Wound cx grew coag negative staph, possible colonization Afebrile, No leukocytosis, procalcitonin normal and negative MRI-- will hold on antibiotic for now Daily wound care apparently declined, wound vac and follow up with wound clinic HTN BP stable Continue metoprolol and amlodipine Stable Anemia stable CHRONIC CERVICAL & BACK PAIN PRN IV dilaudid 0.5 mg q4h Continue Percocet HART'S ESOPHAGUS continue Protonix DEPRESSION Continue Paxil Stable DVT PROPHYLAXIS Lovenox SQ CODE STATUS FULL NO MECH VENTILATION Disposition Discharge once medically stable Consultants: Gastro Wound Care Consultants: Gastro Wound Care Current Inpatient Medications: Current Inpatient Medications Medications (Trade) Dose Ordered Sig/Tyree Route Start Time Stop Time Status Last Admin Dose Admin Enoxaparin Sodium (Lovenox Inj) 40 mg Q24H SC 07/16/17 20:00 08/15/17 19:59 07/27/17 20:39 40 MG Vancomycin HCl (Vancomycin Oral Soln) 125 mg QID PO 07/16/17 20:00 07/30/17 17:01 Future hold 07/28/17 13:32 125 MG Amlodipine Besylate (Norvasc Tab) 10 mg QAM PO 07/17/17 09:00 08/16/17 08:59 07/28/17 08:39 10 MG Metoprolol Succinate (Toprol Xl Tab) 100 mg QAM PO 07/17/17 09:00 08/16/17 08:59 07/28/17 08:39 100 MG Pantoprazole Sodium (Protonix Tab) 40 mg QAM PO 07/17/17 09:00 08/16/17 08:59 07/28/17 08:38 40 MG Paroxetine HCl (pAXil TAB) 20 mg DAILY PO 07/17/17 09:00 08/16/17 08:59 07/28/17 08:39 20 MG Zolpidem Tartrate (Ambien Tab) 10 mg HS PRN PO 07/16/17 16:15 08/15/17 16:14 07/27/17 20:41 10 MG Miscellaneous Information (Order Awaiting Action) 1 ea QS N/A 07/17/17 00:00 08/16/17 00:00 Ondansetron HCl (Zofran Inj) 4 mg Q6H PRN IV 07/16/17 17:15 08/15/17 17:14 Aspirin (Ecotrin Tab) 81 mg DAILY PO 07/17/17 09:00 08/16/17 08:59 07/28/17 08:39 81 MG Raspberry (Raspberry Syrup 5ml Cup) 5 ml QID PO 07/16/17 20:00 07/30/17 19:59 07/28/17 09:10 5 ML Hydromorphone HCl (Dilaudid Inj) 0.5 mg Q4 PRN IV 07/17/17 09:30 07/30/17 15:59 07/28/17 16:09 0.5 MG Ipratropium [place] (Atrovent 0.02% 0.5MG/2.5ML Neb) 0.5 mg Q6R INH 07/17/17 15:00 08/16/17 14:59 07/28/17 14:05 0.5 MG Levalbuterol (Xopenex 0.63 Mg/ 3 Ml Neb) 0.63 mg Q6R INH 07/17/17 15:00 08/16/17 14:59 07/28/17 14:05 0.63 MG Ipratropium [place] (Atrovent 0.02% 0.5MG/2.5ML Neb) 0.5 mg Q4R PRN INH 07/17/17 09:45 08/16/17 09:44 Levalbuterol (Xopenex 0.63 Mg/ 3 Ml Neb) 0.63 mg Q4R PRN INH 07/17/17 09:45 08/16/17 09:44 Oxycodone/ Acetaminophen (Percocet 5-325mg Tab) 1 tab Q6H PRN PO 07/18/17 17:15 08/01/17 17:14 07/28/17 11:08 1 TAB Cholestyramine Resin (Questran Powder Light) 4 gm BID@, PO 07/23/17 22:00 08/22/17 21:59 07/27/17 10:24 4 GM Saccharomyces Boulardii (Florastor Cap) 500 mg BID PO 07/23/17 21:00 08/22/17 20:59 07/28/17 08:40 500 MG Piperacillin Sod/ Tazobactam Sod (Consult) 1 ea UD N/A 07/27/17 10:14 08/26/17 10:13 Piperacillin Sod/ Tazobactam Sod 3.375 gm/Dextrose 115 ml @ 28.75 mls/ hr Q8H IV 07/27/17 16:00 08/03/17 15:59 07/28/17 16:09 28.75 MLS/HR
[2017-07-28] MEDS: ENOXAPARIN 40 MG/0.4 ML SYR SC SCH (20:21)
[2017-07-28] MEDS: ZOLPIDEM TARTRATE 10 MG TAB PO PRN (22:22)
[2017-07-29] VITALS (8 sets, daily range): BP systolic 109–134; BP diastolic 64–87; PULSE 70–88; TEMP 36.3–36.7; O2SAT 91–94
[2017-07-29] MEDS: HYDROmorphone INJ 0.5 MG/0.5 ML SYR IV PRN ×6 (01:56→22:08)
[2017-07-29] MEDS: IPRATROPIUM BROMIDE NEB SOLN 0.02% 2.5 ML VIAL INH SCH ×4 (02:04→19:48)
[2017-07-29] MEDS: LEVALBUTEROL 0.63MG/3 ML NEB INH SCH ×4 (02:04→19:48)
[2017-07-29] MEDS: OXYCODONE/ACETAMINOPHEN 5-325 TAB PO PRN ×3 (07:29→21:38)
[2017-07-29] MEDS: RASPBERRY SYRUP 5 ML UDP PO SCH ×4 (08:15→21:36)
[2017-07-29] MEDS: PIPERACILL/TAZOBAC IV 3.375 GM in DEXTROSE 5% 100ML IV SCH ×3 (08:15→23:37)
[2017-07-29] MEDS: VANCOMYCIN HCL 125 MG/2.5ML SOLN PO SCH ×4 (08:15→21:37)
[2017-07-29] MEDS: SACCHAROMYCES BOUL (FLORASTOR) 250 MG CAP PO SCH ×2 (08:16→21:36)
[2017-07-29] MEDS: PANTOprazole SOD 40 MG TAB PO SCH (08:16)
[2017-07-29] MEDS: ASPIRIN 81 MG ECTAB PO SCH (08:17)
[2017-07-29] MEDS: METOPROLOL SUCC 50MG EXT REL TAB PO SCH (08:17)
[2017-07-29] MEDS: PAROXETINE 20 MG TAB PO SCH (08:18)
[2017-07-29] MEDS: AMLODIPINE BESYLATE 5 MG TAB PO SCH (08:18)
[2017-07-29 08:32] LABS: CREATININE 0.93 mg/dl (0.60-1.40)
[2017-07-29] MEDS: CHOLESTYRAMINE LIGHT 4 GM PKT PO SCH ×2 (10:00→21:38)
--- NOTE | 2017-07-29 13:03 | PULMONARY PROGRESS NOTE ---
DATE: 07/29/2017 TIME: 12:40 p.m. SUBJECTIVE: The patient states he is still having loose bowel movements. Nurses, however, report they have not seen any. He has been walking in the nance without significant difficulty. He had a cup in his room that shows some thickened creamy colored mucus. The quantity has been small. There has been no hemoptysis. OBJECTIVE: GENERAL: The patient appears comfortable. VITAL SIGNS: Temperature is 36.3. He has not had any significant fevers. The heart rate is 88 per minute. Blood pressure 134/87. LUNGS: Lung lino revealed mild wheeze on the right chest posteriorly. Saturation was 93% on room air. Respiratory rate was 20. EXTREMITIES: Showed no cyanosis, clubbing or edema. LABORATORY DATA: Creatinine today is 0.93. IMPRESSIONS: 1. Multilobar pneumonia with most prominent being in the right apex and to a lesser degree right lower lobe -- suspicious for aspiration in light of history of vomiting and multiple syncopal episodes. 2. Chronic obstructive pulmonary disease. 3. Hiatal hernia. PLAN: We will order a chest x-ray for tomorrow morning. Clinically, he looks like he could likely be discharged. He may need a 2 step. I would send him home and treat him as if he has aspiration. Likely Augmentin could be given. He may need serial studies of his C. diff. Dr. Rock will be covering the pulmonary service as of tomorrow.
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
[2017-07-29] MEDS: ENOXAPARIN 40 MG/0.4 ML SYR SC SCH (19:35)
[2017-07-29] MEDS: ZOLPIDEM TARTRATE 10 MG TAB PO PRN (22:07)
[2017-07-30] MEDS: LEVALBUTEROL 0.63MG/3 ML NEB INH SCH ×4 (02:07→19:14)
[2017-07-30] MEDS: IPRATROPIUM BROMIDE NEB SOLN 0.02% 2.5 ML VIAL INH SCH ×4 (02:07→19:14)
[2017-07-30] MEDS: HYDROmorphone INJ 0.5 MG/0.5 ML SYR IV PRN ×6 (02:56→23:54)
[2017-07-30] MEDS: OXYCODONE/ACETAMINOPHEN 5-325 TAB PO PRN ×4 (04:14→22:08)
[2017-07-30 07:13] VITALS: BP 136/86; PULSE 78; TEMP 36.6; O2SAT 95
[2017-07-30 07:36] LABS: CREATININE 0.89 mg/dl (0.60-1.40)
[2017-07-30 07:45] VITALS: PULSE 81; O2SAT 94
--- NOTE | 2017-07-30 07:50 | DIAGNOSTIC IMAGING REPORT ---
CHEST 2 VIEWS ROUTINE CLINICAL HISTORY: f/u on lung infiltrates pneumonia COMPARISON STUDY: 1132 and 17 FINDINGS: Stable emphysematous change. Unchanging right basilar and right apical infiltrative change. Left lung remains generally clear. IMPRESSION: Unchanging right hemithoracic parenchymal infiltrates. Emphysematous change considered stable. The above report was generated using voice recognition software. It may contain grammatical, syntax or spelling errors. Electronically signed by: Raman Julio M.D. 07/30/2017 7:49 AM Dictated Date/Time: 07/30/2017 7:48 AM
[2017-07-30 07:59] LABS: BASO % 0.6 %; BASO ABS # 0.04 K/uL (0-0.2); EOS % 2.4 %; EOS ABS # 0.16 K/uL (0-0.5); HEMATOCRIT 32.7 % (42-52); HEMOGLOBIN 9.8 g/dL (14.0-18.0); IG# 0.04 K/uL (0.00-0.02); LYMPH % 26.1 %; LYMPH ABS # 1.75 K/uL (1.2-3.4); MEAN CELL VOLUME 89.1 fL (80-100); MEAN CORPUSCULAR HEMOGLOBIN 26.7 pg (25-34); MEAN PLATELET VOLUME 8.6 fL (7.4-10.4); MONO % 9.3 %; MONO ABS # 0.62 K/uL (0.11-0.59); NEUT ABS # 4.09 K/uL (1.4-6.5); PLATELET COUNT 536 K/uL (130-400); RED CELL DISTRIBUTION WIDTH CV 16.2 % (11.5-14.5); RED CELL DISTRIBUTION WIDTH SD 53.2 fL (36.4-46.3)
[2017-07-30 08:06] LABS: CALCIUM 8.8 mg/dl (8.5-10.1); CREATININE 0.91 mg/dl (0.60-1.40); POTASSIUM 4.2 mmol/L (3.5-5.1)
[2017-07-30] MEDS: PIPERACILL/TAZOBAC IV 3.375 GM in DEXTROSE 5% 100ML IV SCH (08:24)
[2017-07-30] MEDS: VANCOMYCIN HCL 125 MG/2.5ML SOLN PO SCH ×4 (08:28→22:05)
[2017-07-30] MEDS: RASPBERRY SYRUP 5 ML UDP PO SCH ×4 (08:28→22:05)
[2017-07-30] MEDS: PAROXETINE 20 MG TAB PO SCH (08:29)
[2017-07-30] MEDS: SACCHAROMYCES BOUL (FLORASTOR) 250 MG CAP PO SCH ×2 (08:29→22:06)
[2017-07-30] MEDS: ASPIRIN 81 MG ECTAB PO SCH (08:30)
[2017-07-30] MEDS: PANTOprazole SOD 40 MG TAB PO SCH (08:30)
[2017-07-30] MEDS: METOPROLOL SUCC 50MG EXT REL TAB PO SCH (08:30)
[2017-07-30] MEDS: AMLODIPINE BESYLATE 5 MG TAB PO SCH (08:30)
[2017-07-30] MEDS: CHOLESTYRAMINE LIGHT 4 GM PKT PO SCH ×2 (10:09→23:10)
--- NOTE | 2017-07-30 14:04 | Progress Note ---
Medicine Progress Note Date & Time of Visit: Jul 30, 2017 at 14:04. Subjective patient seen resting in bed, comfortable states he still feels somewhat weak today reports 2 loose BMs today, some abdominal discomfort still has dyspnea on exertion, and occasional dry cough chronic pain under good control denies other symptoms Objective Last 8 Hrs Date Time Temp Pulse Resp B/P (MAP) Pulse Ox O2 Delivery O2 Flow Rate FiO2 07/30/17 08:00 Room Air 07/30/17 07:45 81 16 94 Room Air 07/30/17 07:13 36.6 78 18 136/86 (103) 95 Room Air Physical Exam: General- oriented x 3, not in distress Eyes- anicteric Neck- no JVD Lungs- clear breath sounds BL, no rales/wheezing Heart- normal rate, regular rhythm; no murmurs Abdomen- normal bowel sounds, nondistended, soft,no tenderness Extremities- no pretibial edema, no calf tenderness wound on right arm healing well Neuro- alert, oriented x 3; no gross focal deficits Skin- warm & dry Laboratory Results: Last 24 Hours Test 07/30/17 06:31 White Blood Count 6.70 K/uL Red Blood Count 3.67 M/uL Hemoglobin 9.8 g/dL Hematocrit 32.7 % Mean Corpuscular Volume 89.1 fL Mean Corpuscular Hemoglobin 26.7 pg Mean Corpuscular Hemoglobin Concent 30.0 g/dl Platelet Count 536 K/uL Mean Platelet Volume 8.6 fL Neutrophils (%) (Auto) 61.0 % Lymphocytes (%) (Auto) 26.1 % Monocytes (%) (Auto) 9.3 % Eosinophils (%) (Auto) 2.4 % Basophils (%) (Auto) 0.6 % Neutrophils # (Auto) 4.09 K/uL Lymphocytes # (Auto) 1.75 K/uL Monocytes # (Auto) 0.62 K/uL Eosinophils # (Auto) 0.16 K/uL Basophils # (Auto) 0.04 K/uL RDW Standard Deviation 53.2 fL RDW Coefficient of Variation 16.2 % Immature Granulocyte % (Auto) 0.6 % Immature Granulocyte # (Auto) 0.04 K/uL Sodium Level 139 mmol/L Potassium Level 4.2 mmol/L Chloride Level 103 mmol/L Carbon Dioxide Level 29 mmol/L Anion Gap 7.0 mmol/L Blood Urea Nitrogen 8 mg/dl Creatinine 0.91 mg/dl Est Creatinine Clear Calc Drug Dose 93.9 ml/min Estimated GFR () 103.6 Estimated GFR (Non- 89.4 BUN/Creatinine Ratio 9.2 Random Glucose 80 mg/dl Calcium Level 8.8 mg/dl Assessment & Plan PANCOLITIS C DIFF DIARRHEA S/P C-diff on 06/25/17 treated with flagyl x [address] Abd/Pelvis showed findings consistent with a nonspecific pancolitis Stool for C-diff negative patient reports 2 loose BMs today finished vancomycin 125 mg QID x 14 days repeat C diff stool test per GI, as patient now on antibiotics again, taper Vanco slowly Vanco 125mg QId x 14 days--> BID x 7 days--> daily x 7 days--> every other day x 7 days--> every 3 days x 14 days Florastor x 2 months Cholestyramine BID outpatient colonoscopy in 4 to 6 weeks continue to monitor RIGHT LUNG CONSOLIDATION AND OPACITIES - possible HCAP vs Aspiration - CT chest: IMPRESSION: 1. Progressively worsened multifocal groundglass and consolidative opacities of the right upper lobe with generally unchanged patchy consolidative, groundglass and nodular opacities of the lung bases, right greater than left suggests multifocal pneumonia and/or aspiration pneumonitis with small right parapneumonic effusion. Continued follow-up recommended. 2. Severe upper lobe predominant centrilobular emphysema with bronchitis. 3. Mild mediastinal adenopathy, likely reactive. 4. Moderate hiatal hernia. Mild wall thickening of the mid and distal esophagus suggests esophagitis. - treated for Pneumonia in 05/2017 - Pulmonary consulted, appreciate the recommendations currently on Zosyn Day 3--_ change to Augmentin BID , Nebs breathing and cough improving 2 step exercise test on discharge day COPD CXR on admission showed interval development of right upper lung zone and right lower lung zone airspace opacities suspicious for a multifocal pneumonia. CT chest: as noted above does not seem to be in exacerbation - continue usual Bronchodilators - Pulmonary consulted Hx SYNCOPE ECHO 06/25/17: EF: 55-60%, Aortic valve sclerosis without stenosis Stable WOUND R ARM Hx laceration several weeks ago and had wound dehiscence after suture removal. Dr Cooper wound care consulted S/P debridement by wound care physician MRI showed no evidence for osteomyelitis, no abscess and no collection Wound cx grew coag negative staph, possible colonization -- healing well HTN BP stable Continue metoprolol and amlodipine Stable Anemia stable CHRONIC CERVICAL & BACK PAIN pain well controlled addressed pain medication regimen with patient today he would like to keep it as it is discussed re: pain management inpatient consult, patient agreed HART'S ESOPHAGUS continue Protonix DEPRESSION patient reports increasing depression symptoms would like to try increasing Paxil he is agreeable to have [facility] service see him as inpatient DVT PROPHYLAXIS Lovenox SQ CODE STATUS FULL NO MECH VENTILATION Disposition d/c when medically stable, cleared by Pulm will need 2 step evaluation on day of discharge ff up with PCP, Pulmonary, GI Consultants: Gastro Wound Care Consultants: Gastro Wound Care Current Inpatient Medications: Current Inpatient Medications Medications (Trade) Dose Ordered Sig/Tyree Route Start Time Stop Time Status Last Admin Dose Admin Enoxaparin Sodium (Lovenox Inj) 40 mg Q24H SC 07/16/17 20:00 08/15/17 19:59 07/29/17 19:35 40 MG Vancomycin HCl (Vancomycin Oral Soln) 125 mg QID PO 07/16/17 20:00 07/30/17 17:01 Future hold 07/30/17 13:19 125 MG Amlodipine Besylate (Norvasc Tab) 10 mg QAM PO 07/17/17 09:00 08/16/17 08:59 07/30/17 08:30 10 MG Metoprolol Succinate (Toprol Xl Tab) 100 mg QAM PO 07/17/17 09:00 08/16/17 08:59 07/30/17 08:30 100 MG Pantoprazole Sodium (Protonix Tab) 40 mg QAM PO 07/17/17 09:00 08/16/17 08:59 07/30/17 08:30 40 MG Paroxetine HCl (pAXil TAB) 20 mg DAILY PO 07/17/17 09:00 08/16/17 08:59 07/30/17 08:29 20 MG Zolpidem Tartrate (Ambien Tab) 10 mg HS PRN PO 07/16/17 16:15 08/15/17 16:14 07/29/17 22:07 10 MG Miscellaneous Information (Order Awaiting Action) 1 ea QS N/A 07/17/17 00:00 08/16/17 00:00 Ondansetron HCl (Zofran Inj) 4 mg Q6H PRN IV 07/16/17 17:15 08/15/17 17:14 Aspirin (Ecotrin Tab) 81 mg DAILY PO 07/17/17 09:00 08/16/17 08:59 07/30/17 08:30 81 MG Raspberry (Raspberry Syrup 5ml Cup) 5 ml QID PO 07/16/17 20:00 07/30/17 19:59 07/30/17 13:19 5 ML Hydromorphone HCl (Dilaudid Inj) 0.5 mg Q4 PRN IV 07/17/17 09:30 07/30/17 15:59 07/30/17 11:42 0.5 MG Ipratropium [place] (Atrovent 0.02% 0.5MG/2.5ML Neb) 0.5 mg Q6R INH 07/17/17 15:00 08/16/17 14:59 07/30/17 07:32 0.5 MG Levalbuterol (Xopenex 0.63 Mg/ 3 Ml Neb) 0.63 mg Q6R INH 07/17/17 15:00 08/16/17 14:59 07/30/17 07:32 0.63 MG Ipratropium [place] (Atrovent 0.02% 0.5MG/2.5ML Neb) 0.5 mg Q4R PRN INH 07/17/17 09:45 08/16/17 09:44 Levalbuterol (Xopenex 0.63 Mg/ 3 Ml Neb) 0.63 mg Q4R PRN INH 07/17/17 09:45 08/16/17 09:44 Oxycodone/ Acetaminophen (Percocet 5-325mg Tab) 1 tab Q6H PRN PO 07/18/17 17:15 08/01/17 17:14 07/30/17 10:12 1 TAB Cholestyramine Resin (Questran Powder Light) 4 gm BID@ PO 07/23/17 22:00 08/22/17 21:59 07/30/17 10:09 4 GM Saccharomyces Boulardii (Florastor Cap) 500 mg BID PO 07/23/17 21:00 08/22/17 20:59 07/30/17 08:29 500 MG Piperacillin Sod/ Tazobactam Sod (Consult) 1 ea UD N/A 07/27/17 10:14 08/26/17 10:13 Piperacillin Sod/ Tazobactam Sod 3.375 gm/Dextrose 115 ml @ 28.75 mls/ hr Q8H IV 07/27/17 16:00 08/03/17 15:59 07/30/17 08:24 28.75 MLS/HR
[2017-07-30 14:50] VITALS: PULSE 62; O2SAT 93
[2017-07-30 15:16] VITALS: BP 122/70; PULSE 83; TEMP 36.4; O2SAT 94
[2017-07-30] MEDS: AMOXICILLIN/CLAVULANATE TAB 875 MG TAB PO SCH (17:08)
--- NOTE | 2017-07-30 19:00 | Pulmonology Progress Note ---
Pulmonary Progress Note Date of Service Jul 30, 2017. Attending Dr. Rock Subjective Patient seen and examined. He states that he is still having some intermittent chest tightness and dyspnea with exertion. His main complaint is that he still has loose watery stools and episodes of dizziness and lightheadedness. Objective Vital signs reviewed. MAXIMUM TEMPERATURE 36.6, blood pressure 122/70 to 136/86 , pulse 62-83, respiratory rate 16-20, pulse oximetry 93-95% on room air. General: Awake alert oriented 3, in no acute respiratory distress, speaking in full sentences without use of respiratory muscles of respiration. CVS: S1-S2, regular rate and rhythm Lungs: Clear to auscultation bilaterally Abdomen: Nontender, nondistended, bowel sounds positive Extremities: No edema, no cyanosis, no clubbing. Laboratory data reviewed. CHEST 2 VIEWS ROUTINE 07/30/2017 CLINICAL HISTORY: f/u on lung infiltrates pneumonia COMPARISON STUDY: 1132 and 17 FINDINGS: Stable emphysematous change. Unchanging right basilar and right apical infiltrative change. Left lung remains generally clear. IMPRESSION: Unchanging right hemithoracic parenchymal infiltrates. Emphysematous change considered stable. Medications reviewed. He is was on Zosyn 3.375 g every 8 hours he was switched over to Augmentin 875 mg twice a day on 07/30/2017. He continues on Atrovent/ Xopenex nebulizers every 6 hours and Protonix 40 mg by mouth daily. Assessment & Plan IMPRESSIONS: 1. Multilobar pneumonia with most prominent being in the right apex and to a lesser degree right lower lobe 2. Chronic obstructive pulmonary disease. 3. Hiatal hernia. Patient is feeling better from a respiratory standpoint. Chest x-ray today is relatively unchanged. He still remains on room air and saturating well. Switched over to Augmentin 875 by mouth twice a day. He is currently being treated for aspiration pneumonia. Obtain speech and swallow eval to assess for silent aspiration. Continue with nebulizers every 4-6 hours. Continue his supplemental oxygenation at night. Continue PPI for GERD He can probably be discharged within the next 24-48 hours. He should follow up with Dr. Gomez within 1-2 weeks. Please resume Breo ellipta and ventolin. He is contact me if you've any further questions or concerns. Data Medications: Current Inpatient Medications Medications (Trade) Dose Ordered Sig/Tyree Route Start Time Stop Time Status Last Admin Dose Admin Enoxaparin Sodium (Lovenox Inj) 40 mg Q24H SC 07/16/17 20:00 08/15/17 19:59 07/29/17 19:35 40 MG Amlodipine Besylate (Norvasc Tab) 10 mg QAM PO 07/17/17 09:00 08/16/17 08:59 07/30/17 08:30 10 MG Metoprolol Succinate (Toprol Xl Tab) 100 mg QAM PO 07/17/17 09:00 08/16/17 08:59 07/30/17 08:30 100 MG Pantoprazole Sodium (Protonix Tab) 40 mg QAM PO 07/17/17 09:00 08/16/17 08:59 07/30/17 08:30 40 MG Paroxetine HCl (pAXil TAB) 20 mg DAILY PO 07/17/17 09:00 08/16/17 08:59 07/30/17 08:29 20 MG Zolpidem Tartrate (Ambien Tab) 10 mg HS PRN PO 07/16/17 16:15 08/15/17 16:14 07/29/17 22:07 10 MG Miscellaneous Information (Order Awaiting Action) 1 ea QS N/A 07/17/17 00:00 08/16/17 00:00 Ondansetron HCl (Zofran Inj) 4 mg Q6H PRN IV 07/16/17 17:15 08/15/17 17:14 Aspirin (Ecotrin Tab) 81 mg DAILY PO 07/17/17 09:00 08/16/17 08:59 07/30/17 08:30 81 MG Raspberry (Raspberry Syrup 5ml Cup) 5 ml QID PO 07/16/17 20:00 07/30/17 19:59 07/30/17 17:07 5 ML Ipratropium [place] (Atrovent 0.02% 0.5MG/2.5ML Neb) 0.5 mg Q6R INH 07/17/17 15:00 08/16/17 14:59 07/30/17 14:49 0.5 MG Levalbuterol (Xopenex 0.63 Mg/ 3 Ml Neb) 0.63 mg Q6R INH 07/17/17 15:00 08/16/17 14:59 07/30/17 14:49 0.63 MG Ipratropium [place] (Atrovent 0.02% 0.5MG/2.5ML Neb) 0.5 mg Q4R PRN INH 07/17/17 09:45 08/16/17 09:44 Levalbuterol (Xopenex 0.63 Mg/ 3 Ml Neb) 0.63 mg Q4R PRN INH 07/17/17 09:45 08/16/17 09:44 Oxycodone/ Acetaminophen (Percocet 5-325mg Tab) 1 tab Q6H PRN PO 07/18/17 17:15 08/01/17 17:14 07/30/17 16:11 1 TAB Cholestyramine Resin (Questran Powder Light) 4 gm BID@ PO 07/23/17 22:00 08/22/17 21:59 07/30/17 10:09 4 GM Saccharomyces Boulardii (Florastor Cap) 500 mg BID PO 07/23/17 21:00 08/22/17 20:59 07/30/17 08:29 500 MG Amoxicillin/ Clavulanate Potassium (Augmentin Tab) 875 mg BIDM PO 07/30/17 17:00 08/06/17 16:59 07/30/17 17:08 875 MG I & O: 24-Hour Column 07/31/17 07:59 Intake Total 670 ml Output Total 650 ml Balance 20 ml Vital Signs: Date Time Temp Pulse Resp B/P (MAP) Pulse Ox O2 Delivery O2 Flow Rate FiO2 07/30/17 16:00 Room Air 07/30/17 15:16 36.4 83 20 122/70 (87) 94 Room Air 07/30/17 14:50 62 16 93 Room Air 07/30/17 08:00 Room Air 07/30/17 07:45 81 16 94 Room Air 07/30/17 07:13 36.6 78 18 136/86 (103) 95 Room Air 07/29/17 20:00 91 Room Air 07/29/17 19:49 70 16 91 Room Air Laboratory Results: Last 24 Hours Test 07/30/17 06:31 White Blood Count 6.70 K/uL Red Blood Count 3.67 M/uL Hemoglobin 9.8 g/dL Hematocrit 32.7 % Mean Corpuscular Volume 89.1 fL Mean Corpuscular Hemoglobin 26.7 pg Mean Corpuscular Hemoglobin Concent 30.0 g/dl Platelet Count 536 K/uL Mean Platelet Volume 8.6 fL Neutrophils (%) (Auto) 61.0 % Lymphocytes (%) (Auto) 26.1 % Monocytes (%) (Auto) 9.3 % Eosinophils (%) (Auto) 2.4 % Basophils (%) (Auto) 0.6 % Neutrophils # (Auto) 4.09 K/uL Lymphocytes # (Auto) 1.75 K/uL Monocytes # (Auto) 0.62 K/uL Eosinophils # (Auto) 0.16 K/uL Basophils # (Auto) 0.04 K/uL RDW Standard Deviation 53.2 fL RDW Coefficient of Variation 16.2 % Immature Granulocyte % (Auto) 0.6 % Immature Granulocyte # (Auto) 0.04 K/uL Sodium Level 139 mmol/L Potassium Level 4.2 mmol/L Chloride Level 103 mmol/L Carbon Dioxide Level 29 mmol/L Anion Gap 7.0 mmol/L Blood Urea Nitrogen 8 mg/dl Creatinine 0.91 mg/dl Est Creatinine Clear Calc Drug Dose 93.9 ml/min Estimated GFR () 103.6 Estimated GFR (Non- 89.4 BUN/Creatinine Ratio 9.2 Random Glucose 80 mg/dl Calcium Level 8.8 mg/dl
[2017-07-30 19:14] VITALS: PULSE 56; O2SAT 92
[2017-07-30] MEDS: ENOXAPARIN 40 MG/0.4 ML SYR SC SCH (19:59)
[2017-07-30] MEDS: ZOLPIDEM TARTRATE 10 MG TAB PO PRN (22:08)
[2017-07-31] VITALS (7 sets, daily range): BP systolic 122–142; BP diastolic 72–90; PULSE 65–80; TEMP 36.3–36.4; O2SAT 91–93
[2017-07-31] MEDS: IPRATROPIUM BROMIDE NEB SOLN 0.02% 2.5 ML VIAL INH SCH ×4 (01:52→19:45)
[2017-07-31] MEDS: LEVALBUTEROL 0.63MG/3 ML NEB INH SCH ×4 (01:53→19:45)
[2017-07-31] MEDS: HYDROmorphone INJ 0.5 MG/0.5 ML SYR IV PRN ×5 (04:11→20:34)
[2017-07-31] MEDS: OXYCODONE/ACETAMINOPHEN 5-325 TAB PO PRN ×4 (04:12→23:23)
[2017-07-31] MEDS: RASPBERRY SYRUP 5 ML UDP PO SCH ×4 (08:23→20:49)
[2017-07-31] MEDS: VANCOMYCIN HCL 125 MG/2.5ML SOLN PO SCH ×4 (08:23→20:49)
[2017-07-31] MEDS: AMLODIPINE BESYLATE 5 MG TAB PO SCH (08:24)
[2017-07-31] MEDS: ASPIRIN 81 MG ECTAB PO SCH (08:24)
[2017-07-31] MEDS: PANTOprazole SOD 40 MG TAB PO SCH (08:24)
[2017-07-31] MEDS: METOPROLOL SUCC 50MG EXT REL TAB PO SCH (08:25)
[2017-07-31] MEDS: PAROXETINE 20 MG TAB PO SCH (08:25)
[2017-07-31] MEDS: SACCHAROMYCES BOUL (FLORASTOR) 250 MG CAP PO SCH ×2 (08:25→20:50)
[2017-07-31] MEDS: AMOXICILLIN/CLAVULANATE TAB 875 MG TAB PO SCH ×2 (08:26→16:40)
--- NOTE | 2017-07-31 09:25 | Pain Management Consultation ---
Pain Management Consultation Date of Consultation Jul 31, 2017. Reason for Consultation Cervicalgia Pain Location 1 - History 61-year-old male with long-standing history of cervicalgia for at least 15 years. He states that he's been working with Dr. Peguero as an outpatient for some time now and has received cervical epidural steroid injections with some short-term benefit. In addition it sounds that he's had cervical medial branch blocks with planned radiofrequency ablation in the near future however this was placed on hold given his recent COPD exacerbations and C. difficile infections. Additionally he has received what sounds to be trigger point injections from both Dr. Peguero and Dr. Monroy his primary care physician with excellent benefit. He's participated in physical therapy with exacerbation of pain and has tried nonsteroidal anti-inflammatory agents, muscle relaxants, adjuvant pain medications, opiates (including fentanyl patches, MS Contin, Percocet, tramadol) with adequate efficacy and diminishing his pain. He reports that he has weaned from long-acting opiates and is currently only utilizing short acting opiates as he has received benefit from his injections. He reports that his pain is 99% axial cervical pain although does admit he has some deep aching lumbago infrequently. He denies any significant radicular component of pain although reports in the past he has had some left-sided radicular symptoms which have now for the most part subsided. He reports his pain ranges from 3-10 out of 10 worst with activity better with rest and Percocet in injections. He denies any bowel or bladder incontinence, motor weakness, discoordination of hand movements, dropping of items, foot drop, falls. He has been admitted here for C. difficile infection, recent COPD exacerbation, syncopal events. He does admit to some abdominal pain as well as a very minimal shortness of breath at times. 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 difficile colitis (18) History of appendectomy (19) 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 (20) History of colon resection (21) H/O hernia repair (22) Hx of cardiac cath (23) Alcohol abuse Family History FH: CAD (coronary artery disease) FATHER (CO, bypass) FHx: heart disease SISTER (atrial septal defect) Hypertension FATHER MOTHER Stroke FATHER TIAs FATHER Family Hx Review: history personally reviewed by me Social / Work History Smoking Status: Current some day smoker Smokeless Tobacco Use: No Alcohol Use: none for past year Drug Use: none Marital Status: single Housing Status: lives alone Occupation: disabled Allergies Coded Allergies: Shellfish (Verified Allergy, Severe, SOB & SWOLLEN GLANDS FROM SHELLFISH, 07/16/17) Onion (Verified Allergy, Unknown, RASH AND GI UPSET, 07/16/17) Captopril (Verified Adverse Reaction, Intermediate, "felt bad", 07/16/17) Codeine (Verified Adverse Reaction, Unknown, nausea; nightmares, 07/16/17) Medications Current Inpatient Medications Medications (Trade) Dose Ordered Sig/Tyree Route Start Time Stop Time Status Last Admin Dose Admin Enoxaparin Sodium (Lovenox Inj) 40 mg Q24H SC 07/16/17 20:00 08/15/17 19:59 07/30/17 19:59 40 MG Amlodipine Besylate (Norvasc Tab) 10 mg QAM PO 07/17/17 09:00 08/16/17 08:59 07/31/17 08:24 10 MG Metoprolol Succinate (Toprol Xl Tab) 100 mg QAM PO 07/17/17 09:00 08/16/17 08:59 07/31/17 08:25 100 MG Pantoprazole Sodium (Protonix Tab) 40 mg QAM PO 07/17/17 09:00 08/16/17 08:59 07/31/17 08:24 40 MG Paroxetine HCl (pAXil TAB) 20 mg DAILY PO 07/17/17 09:00 08/16/17 08:59 07/31/17 08:25 20 MG Zolpidem Tartrate (Ambien Tab) 10 mg HS PRN PO 07/16/17 16:15 08/15/17 16:14 07/30/17 22:08 10 MG Miscellaneous Information (Order Awaiting Action) 1 ea QS N/A 07/17/17 00:00 08/16/17 00:00 Ondansetron HCl (Zofran Inj) 4 mg Q6H PRN IV 07/16/17 17:15 08/15/17 17:14 Aspirin (Ecotrin Tab) 81 mg DAILY PO 07/17/17 09:00 08/16/17 08:59 07/31/17 08:24 81 MG Ipratropium [place] (Atrovent 0.02% 0.5MG/2.5ML Neb) 0.5 mg Q6R INH 07/17/17 15:00 08/16/17 14:59 07/31/17 06:58 0.5 MG Levalbuterol (Xopenex 0.63 Mg/ 3 Ml Neb) 0.63 mg Q6R INH 07/17/17 15:00 08/16/17 14:59 07/31/17 06:58 0.63 MG Ipratropium [place] (Atrovent 0.02% 0.5MG/2.5ML Neb) 0.5 mg Q4R PRN INH 07/17/17 09:45 08/16/17 09:44 Levalbuterol (Xopenex 0.63 Mg/ 3 Ml Neb) 0.63 mg Q4R PRN INH 07/17/17 09:45 08/16/17 09:44 Oxycodone/ Acetaminophen (Percocet 5-325mg Tab) 1 tab Q6H PRN PO 07/18/17 17:15 08/01/17 17:14 07/31/17 04:12 1 TAB Cholestyramine Resin (Questran Powder Light) 4 gm BID@ PO 07/23/17 22:00 08/22/17 21:59 07/30/17 23:10 4 GM Saccharomyces Boulardii (Florastor Cap) 500 mg BID PO 07/23/17 21:00 08/22/17 20:59 07/31/17 08:25 500 MG Amoxicillin/ Clavulanate Potassium (Augmentin Tab) 875 mg BIDM PO 07/30/17 17:00 08/06/17 16:59 07/31/17 08:26 875 MG Hydromorphone HCl (Dilaudid Inj) 0.5 mg Q4H PRN IV 07/30/17 19:45 08/13/17 19:44 07/31/17 08:18 0.5 MG Vancomycin HCl (Vancomycin Oral Soln) 125 mg QID PO 07/30/17 21:00 08/09/17 20:59 07/31/17 08:23 125 MG Raspberry (Raspberry Syrup 5ml Cup) 5 ml QID PO 07/30/17 21:00 08/13/17 20:59 07/31/17 08:23 5 ML Methocarbamol (Robaxin Tab) 500 mg TID PRN PO 07/31/17 09:00 08/30/17 08:59 Review of Systems 10 point review of systems was otherwise negative aside from HPI Physical Exam Height & Weight: Height 6 feet, 1.00 inches. Weight 89.500 (Kilograms) 197 (Pounds) Last Vital Signs Documentation Date Time Temp Pulse Resp B/P (MAP) Pulse Ox O2 Delivery O2 Flow Rate FiO2 07/31/17 08:10 36.4 75 18 142/90 (107) 93 07/31/17 06:58 Room Air 07/28/17 00:00 3.0 Exam: GENERAL: 61-year-old male who is awake, alert and oriented. Appears well developed. Is in no distress at the present time. He appears older than his stated age PSYCHIATRIC: Demonstrates normal and clear sensorium. Mood and affect are appropriate. Short-term and long-term memory appears to be intact. HEAD AND NECK: No obvious trauma. No lymphadenopathy is noted. Trachea midline. No thyromegaly noted. He has decreased range of motion in all planes of his cervical spine with crepitus over multiple cervical facet joints. He has pain to provocation over his bilateral C4, C5, C6 facet joints. There is moderate amount of spasm located over his mid and proximal trapezius as well as splenius capitis. Negative Spurling's maneuver bilaterally EARS, EYES AND NOSE: Mucous membranes pink and moist. No mucosal lesions noted. Tongue midline. LUNGS: Normal chest excursion. Decreased breath sounds bilaterally BREASTS: Deferred. CARDIAC: Regular rate and rhythm BACK: Inspection of the lumbar spine demonstrates slight loss of lumbar lordosis. No lesions are noted in the lumbar spine region. Myofascial tenderness is noted over the paraspinous musculature. NEUROLOGICAL: Cranial nerves II through XII grossly intact. No gross sensory or motor deficits noted in the upper extremity. Sensation and motor strength in the lower extremity are symmetrical without deficit. No pathologic reflexes are noted in the lower extremities. Gait is not observed Laboratory Laboratory Results (Last CBC): 07/30/17 06:31 Red Blood Count 3.67 L, Mean Corpuscular Volume 89.1, Mean Corpuscular Hemoglobin 26.7, Mean Corpuscular Hemoglobin Concent 30.0 L, Mean Platelet Volume 8.6, Neutrophils (%) (Auto) 61.0, Lymphocytes (%) (Auto) 26.1, Monocytes (%) (Auto) 9.3, Eosinophils (%) (Auto) 2.4, Basophils (%) (Auto) 0.6, Neutrophils # (Auto) 4.09, Lymphocytes # (Auto) 1.75, Monocytes # (Auto) 0.62 H , Eosinophils # (Auto) 0.16, Basophils # (Auto) 0.[address]: enhanced, reports reviewed CT Findings Patient: KIRBY GERMAN Med Rec: [id number] Dictated: 03/29/151625 Transcribed: 03/29/151643 [place] Printed Date/Time: [~ rep prt dt]/[~ rep prt tm] [~ rep ct labl] - [~ rep ct ivnm] [facility] Diagnostic [place] [address] Dictated: 03/29/151625 Transcribed: 03/29/151643 [place] Printed Date/Time: [~ rep prt dt]/[~ rep prt tm] [~ rep ct labl] - [~ rep ct ivnm] Patient: KIRBY GERMAN Address1: [address] [place] [address] Med Rec: [id number] Address2: Acct ID: [id number] [facility] Zip: [place] [address] Date: 1955 Sex: M Room/Bed: Ref Phy: Zach Monroy M.D. SC: CASPER Att Phy: Report #: [id number] Krystina Phy: Zach Monroy M.D. 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 Diagnosis: CHEST NUMBNESS/PAIN, SPINE WORSENING Ordering Phy: Refugio Tyler MD Service Date: 03/29/15 Admit Date: 03/29/15 MNE: ESINCT CONF: DICTATED BY: Orlando Caldwell M.D. CC: Zach Monroy M.D., Kevin M., MD Endcc: [~ rep ct add1] [~ rep ct add2] [~ rep ct add3] CT SCAN OF THE CERVICAL SPINE WITH IV CONTRAST CLINICAL HISTORY: Squamous cell carcinoma unspecified. Neck pain. COMPARISON STUDY: CT scan of the cervical spine dated 04/24/2013. TECHNIQUE: Following the IV administration of 117 mL of Optiray 320, CT scan of the cervical spine is performed from the skull base to the upper thoracic spine. Images reviewed in the axial, sagittal, and coronal planes. IV contrast was administered without complication. FINDINGS: The skeletal structures are osteopenic. There is no evidence of fracture or subluxation involving the cervical spine. The odontoid process and lateral masses are intact. The atlantodental articulation is maintained noting mild productive degenerative changes. No lytic or blastic osseous lesions are seen. Vertebral body height and alignment are preserved. There is straightening of the cervical lordosis with reversal centered at C4-C5. The spinous processes are preserved. There are small anterior osteophytes seen from C5 through C7. There is mild degenerative disc space narrowing in the cervical spine, greatest at C5-C6 and C6-C7. Small posterior disc osteophyte complexes at C3-C4, C4-C5 and C5-C6 may contribute to mild acquired compromise of the central canal. No abnormal enhancement is suggested on the post-contrast images. The imaged brain parenchyma at the skull base is within normal limits. The visualized calvarium at the skull base appears intact. The mastoid air cells are well pneumatized. A 6 mm sclerotic focus in the right lamina of C3 is unchanged from previous and typical in appearance for a bone island. There is mild multilevel cervical spondylosis, with uncovertebral and facet arthropathy contributing to neural foraminal narrowing at several levels. There is biapical pleural parenchymal scarring, advanced emphysematous changes are seen at the lung apices. The prevertebral and paraspinous soft tissues are normal in appearance. There are nonspecific shotty cervical lymph nodes. IMPRESSION: 1. There is no fracture or subluxation involving the cervical spine. 2. No destructive bony lesions are identified. 3. Cervical spondylosis as above. <Electronically signed by Orlando Caldwell M.D.> Dictated by: Orlando Caldwell M.D. Signed by: Orlando Caldwell M.D. The status of this report is Signed. Draft = Not yet reviewed or approved by Radiologist. Signed = Reviewed and approved by Radiologist. <AttendingPhy></AttendingPhy> <FamilyPhy>Zach Monroy M.D.</FamilyPhy> < PrimaryPhy>Zach Monroy M.D.</PrimaryPhy> <UnitNumber>[id number]</UnitNumber> < VisitNumber>[id number]</VisitNumber> <PatientName>KIRBY GERMAN</ PatientName> <DateOfBirth>1955</DateOfBirth> <Location>[facility]</Location> < ServiceDate>03/29/15</ServiceDate> <MNE>ESINCT</MNE> <OrderingPhy>Refugio Tyler MD</OrderingPhy> <OrderingPhyMNE>f rep ord dr sepulveda</OrderingPhyMNE> < DictatingPhyMNE>f rep dict dr sepulveda</DictatingPhyMNE> <CCListMNE>f rep ct mne</ CCListMNE> <AdmittingPhyMNE>f pt admit dr sepulveda</AdmittingPhyMNE> <AttendingPhyMNE >f pt attend dr sepulveda</AttendingPhyMNE> <ConsultingPhyMNE>f pt consult dr sepulveda</ConsultingPhyMNE> <FamilyPhyMNE>f pt fam dr sepulveda</FamilyPhyMNE> <OtherPhyMNE>f pt other dr sepulveda</OtherPhyMNE> < PrimaryPhyMNE>f pt prim care dr sepulveda</PrimaryPhyMNE> <ReferringPhyMNE>f pt referring dr sepulveda</ReferringPhyMNE> Past Records Previous Records: none available for review [place] Drug Monitoring Program Search Results: patient reviewed within database, no issues identified Opioid Risk Assessment Risk assessment performed, moderate risk identified Assessment 1. Cervicalgia 2. Cervical facet syndrome with reversal of lordotic curve at C4 through 6 3. Opiate dependence 4. Current C. difficile infection 5. Recent COPD exacerbation 6. Myofascial pain and spasm Recommendations 1. I recommend he continue to work with Dr. Peguero as an outpatient in regards to cervicalgia and cervical facet syndrome. 2. There are no plans for interventional pain therapy during this hospitalization. He may continue to work with Dr. Peguero 3. I recommend he continue Percocet 5/325 mg 1 by mouth every 6 when necessary 4. I added Robaxin 500 mg by mouth every 8 when necessary pain and spasm to diminish his myofascial pain 5. May utilize heat and ice as desired 6. Thank you for this consultation please call with any questions
[2017-07-31] MEDS: CHOLESTYRAMINE LIGHT 4 GM PKT PO SCH ×2 (09:43→22:01)
[2017-07-31] MEDS: METHOCARBAMOL 500 MG TAB PO PRN ×2 (09:43→18:26)
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
--- NOTE | 2017-07-31 13:23 | Progress Note ---
Medicine Progress Note Date & Time of Visit: Jul 31, 2017 at 13:06. Subjective Pt was seen and examined Sitting in chair with no distress Pt said that he feels much better he said that he is afraid to go home and to readmit again He said that diarrhea improved He said that his breathing improved Denies any chest pain, palpitation, dizziness Objective Last 8 Hrs Date Time Temp Pulse Resp B/P (MAP) Pulse Ox O2 Delivery O2 Flow Rate FiO2 07/31/17 08:10 36.4 75 18 142/90 (107) 93 07/31/17 08:00 Room Air 07/31/17 06:58 65 16 93 Room Air Physical Exam: General- No acute distress Head- atraumatic Eyes- PERRL, EOMI ENT- oropharynx clear Neck- supple, no JVD Lungs- Mild wheezing Heart- regular Abdomen- normal bowel sounds, soft Extremities- no calf tenderness, wound in R arm area with no drainage and erythema Neuro- alert, oriented x 3; PERRL, EOMI Skin- warm & dry Assessment & Plan C-diff/Diarrhea Colitis S/P c-diff on 06/25/17 treated with flagyl x [address] Abd/Pelvis showed findings consistent with a nonspecific pancolitis WBC on admission mildly elevated Stool for Cdiff negative Completed Vanco 125 mg QID Continue IVF and pain control GI on board recommended a slow taper course of PO vanco Vanco 125mg QId x 14 days--> BID x 7 days--> daily x 7 days--> every other day x 7 days--> every 3 days x 14 days Florastor x 2 months Cholestyramine BID Outpatient colonoscopy in 4 to 6 weeks Clinically improved significantly Hypoxia Possible HCAP vs Aspiration CT chest ashowed Progressively worsened multifocal groundglass and consolidative opacities of the right upper lobe with generally unchanged patchy consolidative, groundglass and nodular opacities of the lung bases, right greater than left Received Zosyn for 3 days, them switched to augmentin BID Pulmonary on board Continue Neb treatment On chronic home oxygen, will continue oxygen supplement Will need to follow with Pulmonary Stable COPD No acute exacerbation CXR on admission showed interval development of right upper lung zone and right lower lung zone airspace opacities suspicious for a multifocal pneumonia. Xopenex prn SOB/wheezing continue breo Stable Hx SYNCOPE ECHO 06/25/17: EF: 55-60%, Aortic valve sclerosis without stenosis Stable WOUND R ARM Hx laceration several weeks ago and had wound dehiscence after suture removal. Wound cx collected Dr Cooper wound care consulted S/P debridement by wound care physician MRI showed no evidence for osteomyelitis, no abscess and no collection Wound cx grew coag negative staph, possible colonization Daily wound care Refused to follow with wound clinic Healing well HTN BP stable Continue metoprolol and amlodipine Stable Anemia continue monitor CBC stable CHRONIC CERVICAL & BACK PAIN will D/C IV dilaudid 0.5 mg q4h Continue Percocet Pain management consulted recommended to add Robaxin 500mg q8hr HART'S ESOPHAGUS continue Protonix DEPRESSION denies any suicidal ideation Psych on board Paxil increased to 40mg daily Stable DVT PROPHYLAXIS Lovenox SQ CODE STATUS FULL NO MECH VENTILATION Disposition Possible discharge tomorrow Consultants: Gastro Wound Care Pain management Pulmonary Psych Current Inpatient Medications: Current Inpatient Medications Medications (Trade) Dose Ordered Sig/Tyree Route Start Time Stop Time Status Last Admin Dose Admin Enoxaparin Sodium (Lovenox Inj) 40 mg Q24H SC 07/16/17 20:00 08/15/17 19:59 07/30/17 19:59 40 MG Amlodipine Besylate (Norvasc Tab) 10 mg QAM PO 07/17/17 09:00 08/16/17 08:59 07/31/17 08:24 10 MG Metoprolol Succinate (Toprol Xl Tab) 100 mg QAM PO 07/17/17 09:00 08/16/17 08:59 07/31/17 08:25 100 MG Pantoprazole Sodium (Protonix Tab) 40 mg QAM PO 07/17/17 09:00 08/16/17 08:59 07/31/17 08:24 40 MG Zolpidem Tartrate (Ambien Tab) 10 mg HS PRN PO 07/16/17 16:15 08/15/17 16:14 07/30/17 22:08 10 MG Miscellaneous Information (Order Awaiting Action) 1 ea QS N/A 07/17/17 00:00 08/16/17 00:00 Ondansetron HCl (Zofran Inj) 4 mg Q6H PRN IV 07/16/17 17:15 08/15/17 17:14 Aspirin (Ecotrin Tab) 81 mg DAILY PO 07/17/17 09:00 08/16/17 08:59 07/31/17 08:24 81 MG Ipratropium [place] (Atrovent 0.02% 0.5MG/2.5ML Neb) 0.5 mg Q6R INH 07/17/17 15:00 08/16/17 14:59 07/31/17 06:58 0.5 MG Levalbuterol (Xopenex 0.63 Mg/ 3 Ml Neb) 0.63 mg Q6R INH 07/17/17 15:00 08/16/17 14:59 07/31/17 06:58 0.63 MG Ipratropium [place] (Atrovent 0.02% 0.5MG/2.5ML Neb) 0.5 mg Q4R PRN INH 07/17/17 09:45 08/16/17 09:44 Levalbuterol (Xopenex 0.63 Mg/ 3 Ml Neb) 0.63 mg Q4R PRN INH 07/17/17 09:45 08/16/17 09:44 Oxycodone/ Acetaminophen (Percocet 5-325mg Tab) 1 tab Q6H PRN PO 07/18/17 17:15 08/01/17 17:14 07/31/17 10:12 1 TAB Cholestyramine Resin (Questran Powder Light) 4 gm BID@ PO 07/23/17 22:00 08/22/17 21:59 07/31/17 09:43 4 GM Saccharomyces Boulardii (Florastor Cap) 500 mg BID PO 07/23/17 21:00 08/22/17 20:59 07/31/17 08:25 500 MG Amoxicillin/ Clavulanate Potassium (Augmentin Tab) 875 mg BIDM PO 07/30/17 17:00 08/06/17 16:59 07/31/17 08:26 875 MG Hydromorphone HCl (Dilaudid Inj) 0.5 mg Q4H PRN IV 07/30/17 19:45 08/13/17 19:44 07/31/17 12:23 0.5 MG Vancomycin HCl (Vancomycin Oral Soln) 125 mg QID PO 07/30/17 21:00 08/09/17 20:59 07/31/17 08:23 125 MG Raspberry (Raspberry Syrup 5ml Cup) 5 ml QID PO 07/30/17 21:00 08/13/17 20:59 07/31/17 08:23 5 ML Methocarbamol (Robaxin Tab) 500 mg TID PRN PO 07/31/17 09:00 08/30/17 08:59 07/31/17 09:43 500 MG Paroxetine HCl (pAXil TAB) 40 mg QAM PO 08/01/17 09:00 08/31/17 08:59
[2017-07-31] MEDS: ENOXAPARIN 40 MG/0.4 ML SYR SC SCH (20:49)
[2017-07-31] MEDS: ZOLPIDEM TARTRATE 10 MG TAB PO PRN (22:01)
[2017-08-01 00:14] VITALS: BP 112/68; PULSE 85; TEMP 36.4; O2SAT 91
[2017-08-01] MEDS: HYDROmorphone INJ 0.5 MG/0.5 ML SYR IV PRN ×3 (00:37→10:02)
[2017-08-01] MEDS: IPRATROPIUM BROMIDE NEB SOLN 0.02% 2.5 ML VIAL INH SCH ×2 (02:12→07:08)
[2017-08-01] MEDS: LEVALBUTEROL 0.63MG/3 ML NEB INH SCH ×2 (02:12→07:08)
[2017-08-01] MEDS: METHOCARBAMOL 500 MG TAB PO PRN ×2 (03:44→12:11)
[2017-08-01 07:06] VITALS: BP 138/77; PULSE 77; TEMP 36.4; O2SAT 92
[2017-08-01] MEDS: OXYCODONE/ACETAMINOPHEN 5-325 TAB PO PRN (08:32)
[2017-08-01] MEDS: RASPBERRY SYRUP 5 ML UDP PO SCH ×2 (08:32→13:25)
[2017-08-01] MEDS: VANCOMYCIN HCL 125 MG/2.5ML SOLN PO SCH ×2 (08:32→13:25)
[2017-08-01] MEDS: METOPROLOL SUCC 50MG EXT REL TAB PO SCH (08:33)
[2017-08-01] MEDS: SACCHAROMYCES BOUL (FLORASTOR) 250 MG CAP PO SCH (08:33)
[2017-08-01] MEDS: ASPIRIN 81 MG ECTAB PO SCH (08:34)
[2017-08-01] MEDS: AMLODIPINE BESYLATE 5 MG TAB PO SCH (08:34)
[2017-08-01] MEDS: PANTOprazole SOD 40 MG TAB PO SCH (08:34)
[2017-08-01] MEDS: AMOXICILLIN/CLAVULANATE TAB 875 MG TAB PO SCH (08:35)
[2017-08-01] MEDS ORDERED: PAROXETINE 20 MG TAB PO SCH (09:00)
[2017-08-01] MEDS: CHOLESTYRAMINE LIGHT 4 GM PKT PO SCH (10:05)
[2017-08-01] MEDS ORDERED: OXYCODONE/ACETAMINOPHEN 5-325 TAB PO PRN (10:15)
--- NOTE | 2017-08-01 13:07 | Progress Note ---
Medicine Progress Note Date & Time of Visit: Aug 01, 2017 at 12:43. Subjective Pt was seen and examined Lying in bed with no distress watching TV Pt continues saying that he has diarrhea But no one unable to confirm about how many times that had diarrhea He is very dependent and goes to the bathroom alone I have been asking patient to call staff after each bowel movement so they can keep track on how many BM for the day Nurse said that yesterday they put a hat to try to collect a stool sample Was unable to collect the stool sample until after 5pm Pt said that he continues to have pain and he has been request the Dilaudid He was not very happy this morning when i said that i would discharge him later in the day He said that he needs to make few phone calls to let his sister and nurse friend in [place] know that he will be discharge soon I told him that i will make binder caser came and talked to him to check if he would be qualified for any services He still was not very happy to go home. I tried to explained it to him about the plan He said that i am making him get aggravated and started to use foul languages. Objective Last 8 Hrs Date Time Temp Pulse Resp B/P (MAP) Pulse Ox O2 Delivery O2 Flow Rate FiO2 08/01/17 08:00 Room Air 08/01/17 07:06 36.4 77 18 138/77 (97) 92 Room Air Physical Exam: Unable to assess because pt was upset and using foul languages Laboratory Results: Date/Time Source Procedure Growth Status 07/31/17 17:25 Stool C.difficile Toxin B Gene (PCR) - Final No C. difficile toxin B gene detected Complete Assessment & Plan C-diff/Diarrhea Colitis S/P c-diff on 06/25/17 treated with flagyl x [address] Abd/Pelvis showed findings consistent with a nonspecific pancolitis WBC on admission mildly elevated Stool for Cdiff negative Completed Vanco 125 mg QID Continue IVF and pain control GI on board recommended a slow taper course of PO vanco Vanco 125mg QId x 14 days--> BID x 7 days--> daily x 7 days--> every other day x 7 days--> every 3 days x 14 days Florastor x 2 months Cholestyramine BID Repeat C-diff was negative yesterday Outpatient colonoscopy in 4 to 6 weeks Clinically improved significantly Hypoxia Possible HCAP vs Aspiration CT chest ashowed Progressively worsened multifocal groundglass and consolidative opacities of the right upper lobe with generally unchanged patchy consolidative, groundglass and nodular opacities of the lung bases, right greater than left Received Zosyn for 3 days, them switched to augmentin BID Pulmonary on board Continue Neb treatment On chronic home oxygen, will continue home oxygen supplement Will need to follow with Pulmonary Stable COPD No acute exacerbation CXR on admission showed interval development of right upper lung zone and right lower lung zone airspace opacities suspicious for a multifocal pneumonia. Xopenex prn SOB/wheezing continue breo Stable Hx SYNCOPE ECHO 06/25/17: EF: 55-60%, Aortic valve sclerosis without stenosis Stable WOUND R ARM Hx laceration several weeks ago and had wound dehiscence after suture removal. Wound cx collected Dr Cooper wound care consulted S/P debridement by wound care physician MRI showed no evidence for osteomyelitis, no abscess and no collection Wound cx grew coag negative staph, possible colonization Daily wound care Refused to follow with wound clinic Healing well HTN BP stable Continue metoprolol and amlodipine Stable Anemia continue monitor CBC stable CHRONIC CERVICAL & BACK PAIN D/C IV dilaudid 0.5 mg q4h Continue Percocet Pain management consulted Continue Robaxin 500mg q8hr HART'S ESOPHAGUS continue Protonix DEPRESSION denies any suicidal ideation Psych on board Continue Paxil 40mg daily Stable DVT PROPHYLAXIS Lovenox SQ CODE STATUS FULL NO MECH VENTILATION Disposition Will discharge home today Follow up with PCP Dr. Monroy on 08/09 @ 3:45 pm Consultants: Gastro Wound Care Pain management Pulmonary Psych Current Inpatient Medications: Current Inpatient Medications Medications (Trade) Dose Ordered Sig/Tyree Route Start Time Stop Time Status Last Admin Dose Admin Enoxaparin Sodium (Lovenox Inj) 40 mg Q24H SC 07/16/17 20:00 08/15/17 19:59 07/31/17 20:49 40 MG Amlodipine Besylate (Norvasc Tab) 10 mg QAM PO 07/17/17 09:00 08/16/17 08:59 08/01/17 08:34 10 MG Metoprolol Succinate (Toprol Xl Tab) 100 mg QAM PO 07/17/17 09:00 08/16/17 08:59 08/01/17 08:33 100 MG Pantoprazole Sodium (Protonix Tab) 40 mg QAM PO 07/17/17 09:00 08/16/17 08:59 08/01/17 08:34 40 MG Zolpidem Tartrate (Ambien Tab) 10 mg HS PRN PO 07/16/17 16:15 08/15/17 16:14 07/31/17 22:01 10 MG Miscellaneous Information (Order Awaiting Action) 1 ea QS N/A 07/17/17 00:00 08/16/17 00:00 Ondansetron HCl (Zofran Inj) 4 mg Q6H PRN IV 07/16/17 17:15 08/15/17 17:14 Aspirin (Ecotrin Tab) 81 mg DAILY PO 07/17/17 09:00 08/16/17 08:59 08/01/17 08:34 81 MG Ipratropium [place] (Atrovent 0.02% 0.5MG/2.5ML Neb) 0.5 mg Q6R INH 07/17/17 15:00 08/16/17 14:59 07/31/17 19:45 0.5 MG Levalbuterol (Xopenex 0.63 Mg/ 3 Ml Neb) 0.63 mg Q6R INH 07/17/17 15:00 08/16/17 14:59 07/31/17 19:45 0.63 MG Ipratropium [place] (Atrovent 0.02% 0.5MG/2.5ML Neb) 0.5 mg Q4R PRN INH 07/17/17 09:45 08/16/17 09:44 Levalbuterol (Xopenex 0.63 Mg/ 3 Ml Neb) 0.63 mg Q4R PRN INH 07/17/17 09:45 08/16/17 09:44 Cholestyramine Resin (Questran Powder Light) 4 gm BID@,22 PO 07/23/17 22:00 08/22/17 21:59 08/01/17 10:05 4 GM Saccharomyces Boulardii (Florastor Cap) 500 mg BID PO 07/23/17 21:00 08/22/17 20:59 08/01/17 08:33 500 MG Amoxicillin/ Clavulanate Potassium (Augmentin Tab) 875 mg BIDM PO 07/30/17 17:00 08/06/17 16:59 08/01/17 08:35 875 MG Vancomycin HCl (Vancomycin Oral Soln) 125 mg QID PO 07/30/17 21:00 08/09/17 20:59 08/01/17 08:32 125 MG Raspberry (Raspberry Syrup 5ml Cup) 5 ml QID PO 07/30/17 21:00 08/13/17 20:59 08/01/17 08:32 5 ML Methocarbamol (Robaxin Tab) 500 mg TID PRN PO 07/31/17 09:00 08/30/17 08:59 08/01/17 12:11 500 MG Paroxetine HCl (pAXil TAB) 40 mg QAM PO 08/01/17 09:00 08/31/17 08:59 08/01/17 08:35 40 MG Oxycodone/ Acetaminophen (Percocet 5-325mg Tab) 1 tab Q4H PRN PO 08/01/17 10:15 08/01/17 17:14 08/01/17 12:11 1 TAB
[2017-08-01] MEDS ORDERED: SACC250C3 PO (13:37)
[2017-08-01] MEDS ORDERED: ATRINS INH (13:37)
[2017-08-01] MEDS ORDERED: RBX500 PO (13:37)
[2017-08-01] MEDS ORDERED: XPNINS INH (13:37)
[2017-08-01] MEDS ORDERED: PXL/40 PO (13:37)
[2017-08-01] MEDS ORDERED: AMOX1TAB43 PO (13:37)
[2017-08-01] MEDS ORDERED: NF1094 PO ×2 (13:37→13:57)
[2017-08-01] MEDS ORDERED: QSTP PO (13:37)
--- NOTE | 2017-08-01 13:53 | Discharge Instructions ---
Discharge Instructions Date of Service Aug 01, 2017. Admission Reason for Admission: Diarrhea, Pancolitis, Syncope Discharge Discharge Diagnosis / Problem: Diarrhea/Pancolitis/Pneumonia/ COPD/WOUND R ARM Discharge Goals Goal(s): Decrease discomfort, Improve function, Improve disease control Activity Recommendations Activity Limitations: resume your previous activity (as tolerated) . Instructions / Follow-Up Instructions / Follow-Up Follow up with your primary Care provider Dr. Monroy on 08/09 @ 3:45 PM Follow up with gastroenterology (Please call to schedule appointment) Follow up with (Lung specialist) pulmonary Dr. Gomez (Please call [phone] to schedule appointment) [address] [place] [address] Follow up with the wound clinic Daily wound care You will need a Colonoscopy between 4 to 6 weeks (your gastroenterology will arrange for that) Fall precaution Continue oxygen supplement Slow taper of vancomycin for the C diff ( BID x 7 days--> daily x 7 days--> every other day x 7 days--> every 3 days x 14 days) Complete the course of the antibiotic with Augmentin for the pneumonia Current Hospital Diet Patient's current hospital diet: Low Sodium Diet (2gm Na), AHA Diet (Heart Healthy) Discharge Diet Recommended Diet: AHA Diet (Heart Healthy), Low Sodium Diet (2gm Na) Pending Studies Studies pending at discharge: no Medical Emergencies . Who to Call and When: Medical Emergencies: If at any time you feel your situation is an emergency, please call 911 immediately. . Non-Emergent Contact Non-Emergency issues call your: Primary Care Provider, Quantitative Equity Head Call Non-Emergent contact if: temperature is above 101, you have any medication questions . . "Provider Documentation" section prepared by Angus Amos. . VTE Core Measure Inpt VTE Proph given/why not?: Enoxaparin (Lovenox) [place] Drug Monitoring Program Search Results: no issues identified (last script for oxycodone was on 07/05 for 30 days supply)
[2017-08-01 14:11] VITALS: BP 138/77; PULSE 77; TEMP 36.4; O2SAT 92
--- NOTE | 2017-08-04 07:49 | Discharge Summary ---
Discharge Summary Date of Service Aug 04, 2017. Discharge Summary Admission Date: Jul 16, 2017 at 15:29 Discharge Date: Aug 01, 2017 Discharge Disposition: Home Principal Diagnosis: Diarrhea/Pancolitis Secondary Diagnoses/Problems: Pneumonia COPD WOUND R ARM CHRONIC CERVICAL & BACK PAIN Anemia hx Syncope Procedures: [~ rep ct add3]] CT SCAN OF THE ABDOMEN AND PELVIS WITH IV CONTRAST CLINICAL HISTORY: Generalized abdominal pain. Chronic diarrhea. COMPARISON STUDY: Abdominal CT dated 06/24/2017 and 03/29/2016. TECHNIQUE: Following the IV administration of 94 cc of Optiray 320, CT scan of the abdomen and pelvis is performed from the lung bases to the proximal femora. Images are reviewed in the axial, sagittal, and coronal planes. IV contrast was administered without complication. A dose lowering technique was utilized adhering to the principles of ALARA. CT DOSE: 484.44 mGy.cm FINDINGS: Lung bases: The heart is normal in size and without pericardial effusion. Advanced emphysematous change is present at the lung bases. There are foci of patchy nodularity with tree-in-bud airspace opacities seen at both lung bases. No pleural effusion is seen. There is a tiny hiatal hernia. Liver: The contrast-enhanced liver is normal in size, contour, and attenuation. There is no intrahepatic biliary ductal dilatation. The hepatic veins and portal veins are patent. Scattered hepatic cysts measure up to 4.7 cm. Additional subcentimeter hepatic hypodensities also likely represent cysts but are too small for definitive characterization. Gallbladder: Layering gallstones are suggested in the fundal region. There is no CT evidence of acute cholecystitis. Spleen: Normal in size and attenuation. Pancreas: Unremarkable. Adrenal glands: Unremarkable. Kidneys: The right kidney is normal in size. There is asymmetric atrophy of the right kidney, with significant scarring in the right lower pole. No hydronephrosis is seen. The kidneys enhance symmetrically. A 7 cm cyst arises from the upper pole of the left kidney. Additional subcentimeter cortical hypodensities also likely represent cysts but are too small for definitive characterization. Abdominal vasculature: The abdominal aorta is normal in course and caliber noting moderate atherosclerotic calcification. Bowel: There is mild colonic diverticulosis without CT evidence of acute diverticulitis. No bowel obstruction is identified. There is diffuse mucosal thickening and edema identified throughout the colon with mild pericolonic inflammation. The appearance is consistent with a nonspecific pancolitis. The appendix is not identified and reported surgically absent. Peritoneum: There is no intraperitoneal free air or abdominal ascites. There is a fat-containing umbilical hernia. Lymphadenopathy: None. Pelvic viscera: The prostate gland is heterogeneous. The bladder is decompressed and grossly unremarkable. Skeletal structures: The skeletal structures are osteopenic. There is mild to moderate lumbosacral spondylosis. No lytic or blastic lesions are seen. IMPRESSION: 1. Findings are consistent with a nonspecific pancolitis, likely on an infectious or inflammatory basis. Clinical correlation will be required. 2. Advanced emphysema. 3. Foci of patchy nodularity with tree-in-bud opacities are again seen at both lung bases. This likely represents an infectious/inflammatory pneumonitis and may be chronic. Clinical correlation will be required. Follow-up as clinically needed. 4. Suspect cholelithiasis. 5. Additional findings as above. Electronically signed by: Orlando Caldwell M.D. 07/16/2017 2:08 PM Dictated Date/Time: 07/16/2017 1:58 PM (CHEST) THORAX WITHOUT CT DOSE: 447.80 mGy.cm CLINICAL HISTORY: 61 years-old Male with r/o pneumonia, mass. Ongoing pneumonia concern for possible mass. TECHNIQUE: Multiaxial CT images of the chest were performed without contrast. A dose lowering technique was utilized adhering to the principles of ALARA. COMPARISON: Chest radiograph of same day, chest CT 06/24/2017. FINDINGS: No dominant thyroid nodule identified. Evaluation for adenopathy is limited without the use of contrast. Mediastinal adenopathy redemonstrated. Right peritracheal lymph node measures 1.9 x 1.2 cm on image 12 series 4, previously measuring 1.5 x 0.8 cm. Enlarged precarinal lymph node measures 1.6 x 1.3 cm, unchanged. Heart is normal in size without pericardial effusion. Coronary arterial calcifications are noted. Moderate atherosclerosis of the aorta without aneurysm identified. Small right pleural effusion. There is no pneumothorax. Advanced centrilobular emphysematous changes redemonstrated. Pleural parenchymal scarring of the lung apices. Bilateral bronchial wall thickening compatible with bronchitis. Subsegmental consolidative opacities are present within the basal left lower lobe. Multifocal patchy groundglass and consolidative opacities are present throughout the right lower and middle lobes which overall appears similar from comparison. There is however progressively worsened consolidation of the right upper lobe with large airspace consolidation containing central air bronchograms measuring up to 6.2 x 4.0 cm within the right lung apex on image 58 series 4. This is new from prior. Scattered nodular opacities are also seen within this distribution. Central airways are patent. Subserosal 1.7 x 1.4 cm lesion of the posterior right hepatic lobe is unchanged, nonspecific. Additional low attenuating lesions are seen throughout the right and left hepatic lobes. These findings would suggest hepatic cysts or hemangiomas. Large cyst of the superior pole left kidney measures up to 7.3 cm. Dystrophic changes are seen within the inferior pole right kidney. There is mild wall thickening of the mid and distal esophagus with moderate hiatal hernia. Soft tissues are unremarkable. Mild symmetric bilateral gynecomastia. No suspicious lytic or blastic bony lesions identified. Mild multilevel endplate spurring of the spine. Remote right-sided rib fractures. IMPRESSION: 1. Progressively worsened multifocal groundglass and consolidative opacities of the right upper lobe with generally unchanged patchy consolidative, groundglass and nodular opacities of the lung bases, right greater than left suggests multifocal pneumonia and/or aspiration pneumonitis with small right parapneumonic effusion. Continued follow-up recommended. 2. Severe upper lobe predominant centrilobular emphysema with bronchitis. 3. Mild mediastinal adenopathy, likely reactive. 4. Moderate hiatal hernia. Mild wall thickening of the mid and distal esophagus suggests esophagitis. Electronically signed by: Des Olivier M.D. 07/26/2017 7:06 PM Dictated Date/Time: 07/26/2017 6:56 PM Consultations: Gastro Wound Care Pain management Pulmonary Psych Medication Reconciliation New Medications: Amoxicillin & Pot Clavulanate (Amoxicillin/Clavulanate P) 1 Tab Tab 875 MG PO BIDM for 7 Days, TAB Cholestyramine (Cholestyramine Light) 4 Gm Pack 4 GM PO BID@ for 15 Days Ipratropium Beaver (Ipratropium Beaver) 0.5 Mg/2.5 Ml Nebu 0.5 MG INH Q6R for 7 Days Levalbuterol (Levalbuterol HCl) 0.63 Mg/3 Ml Nebu 0.63 MG INH Q6R for 7 Days Methocarbamol (Methocarbamol) 500 Mg Tab 500 MG PO TID PRN for spasm/pain for 10 Days, #30 TAB Paroxetine (Paxil) 40 Mg Tab 40 MG PO DAILY for 30 Days, #30 TAB Saccharomyces Boulardii (Florastor) 250 Mg Cap 500 MG PO BID for 15 Days, #60 CAP Vancomycin HCl (Vancomycin HCl) 100 Mg/Ml Inj 125 MG PO BID for 35 Days slow taper: Vanco 125 ml BID for 7 days, then vanco 125ml daily for 7 days, then vanco 125 ml every other day for 7 days, then every 3 days for 14 days Continued Medications: Albuterol Hfa (Ventolin Hfa) 200 Puffs/97480 Mcg Aers 2 PUFFS INH QID PRN for Shortness of Breath, #1 INHALER Amlodipine Besylate (Amlodipine Besylate) 5 Mg Tab 10 MG PO QAM for 30 Days, #60 TAB 2 Refills Aspirin (Aspirin 81 Low Dose) 81 Mg Chw 1 TAB PO DAILY Fluticasone Furoate-Vilanterol (Breo Ellipta) 1 Inh Inh 1 PUFF INH DAILY Home O2 Therapy (Oxygen) Gas 3 LITERS NA HS Meloxicam (Mobic) 7.5 Mg Tab 7.5 MG PO DAILY PRN for Pain for 7 Days, #7 TAB 0 Refills Metoprolol Succ (Toprol Xl) (Toprol-Xl ) 100 Mg Tabcr 100 MG PO QAM Oxycodone/Acetaminophen 5MG/325MG (Percocet 5MG/325MG) Tab 1 TABS PO q4-6h PRN for Pain, #20 TABS 0 Refills Pantoprazole (Protonix) 40 Mg Tab 40 MG PO QAM Zolpidem Tartrate (Ambien) 10 Mg Tab 10 MG PO HS PRN for Sleep Discontinued Medications: Paroxetine (Paxil) 20 Mg Tab 20 MG PO DAILY, TAB Admission Information HPI (per Admitting provider): Pt is 61 y/o M with PMH COPD, insomnia, depression, HTN, Hart's esophagus, chronic back and neck pain presented to ER with c/o diarrhea x 10-12 days. Pt reports hx syncope episodes over the past year. States "blacks out" intermittently, sometimes occurs with standing. Hx hospital admission 05/29/17- for syncope, COPD, rib fractures, pneumonia and was treated with Levaquin. Hx admission 06/24/17-06/25/17 for SOB, CP, syncope, rib fx, C-Diff. Was treated with Flagyl x 10 days. Pt states diarrhea initially improved, until recently. States past 10-12 days with watery non-bloody diarrhea which has worsened with increased episodes over past couple of days. Pt unable to clarify how many episodes "a lot". Also c/o decreased appetite, hasn't been eating or drinking much past several days. C/O lower abdominal pain describes as aching/ cramping and squeezing type pain. Hx COPD and has chronic SOB, chronic cough of clear to white/yellow sputum. Denies any increased sputum or worsening cough or SOB. Uses albuterol 2-4 times a day, which has not increased recently. uses home O2 @3L HS. States nose is dry and sore inside. Denies CP since last hospital admission. Hx intermittent LE edema, pt had negative DVT study last admission. Pt states today no LE edema. denies leg pain. Hx laceration to R forearm and had dehiscence after sutures removed, seen by wound- Dr Cooper in previous admission. Pt states area continues to be not healed and has intermittent discharge from area. Denies surrounding erythema or edema or red streaking. Denies fever/chills, diaphoresis, N/V, ZEPEDA, dizziness, syncope, vision changes, orthopnea, palpitations, sore throat, choking, otalgia, rhinorrhea, epistaxis, paresthesias, weakness, extremity weakness, urinary symptoms. ECHO: 06/25/17: EF: 55-60%, aortic sclerosis without aortic stenosis In ER today: Temp: 36.3C, P: 145 down to 120, R: 20, BP: 125/71, O2: 95% on RA. WBC: 13.2, H/H 11/33.5 (hgb 13-11 in past 2 months), K: 3.6, lipase: 146. Troponin negative. EKG tachy [address] abd/pelvis: nonspecific pancolitis. pt given vancomycin 125mg po, 2 L NSS, morphine 8m IV, dilaudid 0.5mg, zofran 4mg. Physical Exam (per Admitting): General Appearance: WD/WN, no apparent distress Head: normocephalic, atraumatic Eyes: normal inspection, PERRL, EOMI, sclerae normal ENT: hearing grossly normal, pharynx normal, + pertinent finding (dry mucous membranes. nares bilaterally with small scabs, no epistaxis) Neck: supple, no JVD, no carotid bruits Respiratory/Chest: chest non-tender, no respiratory distress, no accessory muscle use, + decreased breath sounds (throughout, no wheezing, rales or rhonchi noted) Cardiovascular: no murmur, normal peripheral pulses, + tachycardia Abdomen/GI: normal bowel sounds, soft, + tenderness (moderate to LLQ with guarding, no rebound ) Extremities/Musculoskelatal: no calf tenderness, normal capillary refill, no pedal edema, normal range of motion, non-tender Neurologic/Psych: alert, normal mood/affect, oriented x 3 Skin: warm/dry, + pertinent finding (right forearm with approx 1.5cm length old laceration with gaping, clear discharge noted, no surrounding erythema or edema, no red streaking ) Hospital Course PANCOLITIS C DIFF DIARRHEA S/P c-diff on 06/25/17 treated with flagyl x [address] Abd/Pelvis showed findings consistent with a nonspecific pancolitis Stool for C-diff negative continue vancomycin 125 mg QID X 14 days Cholestyramine added for diarrhea Florastor added improving Gastro recommended outpatient colonoscopy in 4 to 6 weeks continue to monitor COPD No acute exacerbation CXR on admission showed interval development of right upper lung zone and right lower lung zone airspace opacities suspicious for a multifocal pneumonia. Received Zosyn and Levaquin in the ER Procalcitonin negative Xopenex prn SOB/wheezing continue breo -- cough, breathing improving hold off on further antibiotics given C diff colitis Hx SYNCOPE ECHO 06/25/17: EF: 55-60%, Aortic valve sclerosis without stenosis Stable WOUND R ARM Hx laceration several weeks ago and had wound dehiscence after suture removal. Wound cx collected Dr Cooper wound care consulted S/P debridement by wound care physician MRI showed no evidence for osteomyelitis, no abscess and no collection Wound cx grew coag negative staph, possible colonization Afebrile, No leukocytosis, procalcitonin normal and negative MRI-- antibiotic held Daily wound care Clinically improved Refused wound vac Refused to follow with wound clinic HTN BP stable Continue metoprolol and amlodipine Stable Anemia continue monitor CBC stable CHRONIC CERVICAL & BACK PAIN IV dilaudid 0.5 mg q4h Continue Percocet HART'S ESOPHAGUS continue Protonix DEPRESSION Continue Paxil Stable DVT PROPHYLAXIS Lovenox SQ CODE STATUS FULL NO MECH VENTILATION Disposition Discharge once medically stable Consultants: Gastro Wound Care Total time spent on discharge = 35 minutes This includes examination of the patient, discharge planning, medication reconciliation, and communication with other providers. Discharge Instructions Discharge Instructions Date of Service Aug 01, 2017. Admission Reason for Admission: Diarrhea, Pancolitis, Syncope Discharge Discharge Diagnosis / Problem: Diarrhea/Pancolitis/Pneumonia/ COPD/WOUND R ARM Discharge Goals Goal(s): Decrease discomfort, Improve function, Improve disease control Activity Recommendations Activity Limitations: resume your previous activity (as tolerated) . Instructions / Follow-Up Instructions / Follow-Up Follow up with your primary Care provider Dr. Monroy on 08/09 @ 3:45 PM Follow up with gastroenterology (Please call to schedule appointment) Follow up with (Lung specialist) pulmonary Dr. Gomez (Please call [phone] to schedule appointment) [address] [place] [address] Follow up with the wound clinic Daily wound care You will need a Colonoscopy between 4 to 6 weeks (your gastroenterology will arrange for that) Fall precaution Continue oxygen supplement Slow taper of vancomycin for the C diff ( BID x 7 days--> daily x 7 days--> every other day x 7 days--> every 3 days x 14 days) Complete the course of the antibiotic with Augmentin for the pneumonia Current Hospital Diet Patient's current hospital diet: Low Sodium Diet (2gm Na), AHA Diet (Heart Healthy) Discharge Diet Recommended Diet: AHA Diet (Heart Healthy), Low Sodium Diet (2gm Na) Pending Studies Studies pending at discharge: no Medical Emergencies . Who to Call and When: Medical Emergencies: If at any time you feel your situation is an emergency, please call 911 immediately. . Non-Emergent Contact Non-Emergency issues call your: Primary Care Provider, Candy Rolling Machine Operator Call Non-Emergent contact if: temperature is above 101, you have any medication questions . . "Provider Documentation" section prepared by Angus Amos. . VTE Core Measure Inpt VTE Proph given/why not?: Enoxaparin (Lovenox)[place] Drug Monitoring Program Search Results: no issues identified (last script for oxycodone was on 07/05 for 30 days supply)
== END 2017-08-01 14:55 | disposition home or self-care (01) | DRG 385 ==
LOC: C.EDB 11:13 → C.2E 15:29 → UNDOADMIN 15:29 → ENRESERV 17:09 → C.MS2W 07-18 16:47 → C.2E 07-18 16:47
PROVIDERS: ADMIT Hospitalist; ATTEND Internal Medicine
DX: K51.00 Ulcerative (chronic) pancolitis without complications (principal); J18.9 Pneumonia, unspecified organism; T81.30XA Disruption of wound, unspecified, initial encounter; Z82.49 Family history of ischemic heart disease and other diseases of the circulatory system; Z82.3 Family history of stroke; F17.200 Nicotine dependence, unspecified, uncomplicated; J44.9 Chronic obstructive pulmonary disease, unspecified; G47.00 Insomnia, unspecified; F32.9 Major depressive disorder, single episode, unspecified; I10 Essential (primary) hypertension; K22.70 Barrett's esophagus without dysplasia; Z79.82 Long term (current) use of aspirin; X58.XXXA Exposure to other specified factors, initial encounter; G89.29 Other chronic pain; D64.9 Anemia, unspecified; R55 Syncope and collapse

== ENCOUNTER 2017-08-31 10:27 | Inpatient (IN) | payer OTHER ==
[~2017-08-31] VITALS: Ht 185.4 cm; Wt 87.0 kg
[~2017-08-31 10:27] MED LIST changes: +AMOX1TAB43 PO; +ATRINS INH; -MTR500 PO; +NF1094 PO; -PARO1TAB27 PO; -PRED10TA PO; +PXL/40 PO; +QSTP PO; +RBX500 PO; +SACC250C3 PO; -ULT50X PO; +XPNINS INH
[2017-08-31] MEDS ORDERED: SODIUM CHLORIDE 0.9% 1000ML 1,000 ML IV STA (10:39)
[2017-08-31] MEDS ORDERED: ONDANSETRON INJ 2 MG/ML 2 ML VIAL IV STA (10:39)
--- NOTE | 2017-08-31 11:13 | EMERGENCY ROOM VISIT NOTE ---
History Report prepared by Pedro Luis: Adwoa Genao Under the Supervision of: Dr. Adithya Solis M.D. First contact with patient: 10:36 Chief Complaint: CHEST PAIN Stated Complaint: CHEST PAIN, ABD PAIN, DIARRHEA - REF BY History of Present Illness The patient is a 61 year old male who presents to the Emergency Room with complaints of persistent left chest pain that began yesterday. The patient currently rates his discomfort as an 8/10 in severity. He describes his pain as a pounding in his chest. The patient states that he was admitted one month ago after being seen in Emergency Department, noting he diagnosed with a clostridium difficile infection. The patient states that he has been having non stop diarrhea since May. He notes that he has shortness of breath, loss of appetite, abdominal pain, weakness, and some chills. The patient states that in May he has several syncopal episodes, noting one of his episodes caused him to fall and break 4 ribs. He states that he is an occasional smoker. Source of History: patient Onset: yesterday Position: chest (left) Quality: other (chest pain) Timing: other (persistent) Associated Symptoms: + chills, + SOB, + abdominal pain, + diarrhea, + weakness Review of Systems See HPI for pertinent positives and negatives. A total of ten systems were reviewed and were otherwise negative. Past Medical & Surgical Medical Problems: (1) Basal cell carcinoma (2) Chronic neck pain (3) Colitis (4) COPD (chronic obstructive pulmonary disease) (5) COPD exacerbation (6) Depression (7) Diarrhea (8) History of adenomatous polyp of colon (9) History of Joyce's esophagus (10) History of basal cell carcinoma (11) History of Meckel's diverticulum (12) History of suicide attempt (13) HTN (hypertension) (14) Hx of skin graft (15) Hypertensive urgency (16) Intermittent palpitations Surgical Problems: (1) H/O hernia repair (2) History of appendectomy (3) History of colon resection (4) Hx of cardiac cath (5) 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 Social History Problems: (1) Alcohol abuse Family History FH: CAD (coronary artery disease) FATHER ([place], bypass) FHx: heart disease SISTER (atrial septal defect) Hypertension FATHER MOTHER Stroke FATHER TIAs FATHER Social History Smoking Status: Current Some Day Smoker Alcohol Use: occasionally Drug Use: none Marital Status: single Housing Status: lives alone Occupation Status: disabled Current/Historical Medications Scheduled Aspirin (Aspirin 81 Low Dose), 1 TAB PO DAILY Cholestyramine (Cholestyramine Light), 4 GM PO BID@10, Fluticasone Furoate-Vilanterol (Breo Ellipta), 1 PUFF INH DAILY Home O2 Therapy (Oxygen), 3 LITERS NA HS Ipratropium [place] (Ipratropium [place]), 0.5 MG INH Q6R Levalbuterol (Levalbuterol HCl), 0.63 MG INH Q6R Metoprolol Succ (Toprol Xl) (Toprol-Xl ), 100 MG PO QAM Pantoprazole (Protonix), 40 MG PO QAM Paroxetine (Paxil), 40 MG PO DAILY Vancomycin Hcl (Vancomycin), 125 MG PO DIRECTED Scheduled PRN Albuterol Hfa (Ventolin Hfa), 2 PUFFS INH QID PRN for Shortness of Breath Oxycodone/Acetaminophen 5MG/325MG (Percocet 5MG/325MG), 1 TABS PO q4-6h PRN for Pain Zolpidem Tartrate (Ambien), 10 MG PO HS PRN for Sleep Allergies Coded Allergies: Shellfish (Verified Allergy, Severe, SOB & SWOLLEN GLANDS FROM SHELLFISH, 07/16/17) Onion (Verified Allergy, Unknown, RASH AND GI UPSET, 07/16/17) Captopril (Verified Adverse Reaction, Intermediate, "felt bad", 07/16/17) Codeine (Verified Adverse Reaction, Unknown, nausea; nightmares, 07/16/17) Physical Exam Vital Signs Date Time Temp Pulse Resp B/P (MAP) Pulse Ox O2 Delivery O2 Flow Rate FiO2 08/31/17 14:25 64 18 153/125 97 Room Air 08/31/17 12:38 76 08/31/17 12:28 66 18 189/104 96 Room Air 08/31/17 11:33 80 18 179/95 98 Room Air 08/31/17 11:02 74 08/31/17 11:01 98 Room Air 08/31/17 10:52 98 Room Air 08/31/17 10:32 36.7 76 20 146/96 97 Room Air Physical Exam GENERAL: Awake, alert, well-appearing, in no distress HENT: Dry mucous membranes. Normocephalic, atraumatic. Oropharynx unremarkable. EYES: Normal conjunctiva. Sclera non-icteric. NECK: Supple. No nuchal rigidity. FROM. No JVD. RESPIRATORY: Clear to auscultation. CARDIAC: Regular rate, normal rhythm. Extremities warm and well perfused. Pulses equal. ABDOMEN: Generalized abdominal pain that is most significant in right lower and upper quadrant. Soft, non-distended. No rebound or guarding. No masses. RECTAL: Deferred. MUSCULOSKELETAL: Chest examination reveals no tenderness. The back is symmetrical on inspection without obvious abnormality. There is no CVA tenderness to palpation. No joint edema. LOWER EXTREMITIES: Calves are equal size bilaterally and non-tender. No edema. No discoloration. NEURO: Normal sensorium. No sensory or motor deficits noted. SKIN: No rash or jaundice noted. Medical Decision & Procedures ER Provider Diagnostic Interpretation: Radiology results as stated below per my review and radiologist interpretation: ABD/PELVIS IV CONTRAST ONLY CT DOSE: 517.68 mGy.cm HISTORY: Pain diarrhea, abd pain TECHNIQUE: Multiaxial CT images of the abdomen and pelvis were performed following the use of intravenous contrast. A dose lowering technique was utilized adhering to the principles of ALARA. COMPARISON STUDY: 07/16/2017. 07/26/2017. FINDINGS: Patchy parenchymal infiltrative changes in the lung bases somewhat variable from the prior 2 studies. Although variable, overall geographic extent is similar. External hernia unchanged. Several hepatic cysts unchanged. Upper pole left renal cyst unchanged. The kidneys are considered negative for hydronephrosis. Stable mild atrophic change right kidney. Trace amount of sludge and or debris within the gallbladder lumen. No evidence for gallbladder distention.. Pancreas is uniform. Spleen enhances uniformly. Bowel pattern is nonobstructive. Improved bowel wall thickening procedure described with no current evidence for colitis. Partial small bowel malrotation. Several moderately distended loops of proximal to mid jejunum in the left central pelvic region. Mild residual wall thickening of the wall of the cecum. Moderate wall thickening of the proximal to mid small bowel consistent with a nonspecific inflammatory small bowel enteritis and/or inflammatory bowel change. No evidence for abscess or collection. Mild chronic sigmoid diverticulosis. No evidence for acute diverticulitis. IMPRESSION: 1. Patchy variable persistent infiltrative changes in both lung bases highly suggestive of a potential aspiration pneumonitis 2. Several hepatic as well as renal cysts unchanged. 3. Mild stable right renal atrophy. 4. 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 These loops show moderate distention as well as moderate wall edematous change. 5. Mild residual inflammatory small bowel change, primarily of the proximal to mid small bowel, as well as mild nonspecific wall edema of the cecum. Chronic sigmoid diverticulosis with no evidence for acute diverticulitis. 6. The appearance overall is suggestive of enteritis with a component of superimposed small bowel inflammatory change.. 7. Mild chronic sigmoid diverticulosis with no evidence for acute diverticulitis. The above report was generated using voice recognition software. It may contain grammatical, syntax or spelling errors. Electronically signed by: Raman Julio M.D. 08/31/2017 1:25 PM Dictated Date/Time: 08/31/2017 1:12 PM CHEST ONE VIEW PORTABLE HISTORY: 61 years-old Male CHEST PAIN acute atypical chest pain COMPARISON: Chest radiographs 07/30/2017, chest CT 07/26/2017 TECHNIQUE: Portable AP view of the chest FINDINGS: Cardiomediastinal and hilar silhouettes are within normal limits. Emphysema with hyperinflation. There are persistent patchy multifocal alveolar opacities bilaterally, notably within the right greater than left lower lobes and right upper lobe. Disease within the right upper lobe has improved in disease within the right lung base appears stable to slightly worsened. No pneumothorax or large pleural effusion. Bones of the chest appear grossly intact. IMPRESSION: 1. Patchy alveolar opacities are again seen within the right greater than left lung bases and right upper lobe. There is improved aeration of the right upper lobe with stable to slightly worsened disease within the right lung base. 2. Advanced emphysema. The above report was generated using voice recognition software. It may contain grammatical, syntax or spelling errors. Electronically signed by: Des Olivier M.D. 08/31/2017 11:38 AM Dictated Date/Time: 08/31/2017 11:35 AM Laboratory Results 08/31/17 11:05 Red Blood Count 4.56, Mean Corpuscular Volume 81.1, Mean Corpuscular Hemoglobin 25.0, Mean Corpuscular Hemoglobin Concent 30.8, Mean Platelet Volume 8.6, Neutrophils (%) (Auto) 66.0, Lymphocytes (%) (Auto) 22.2, Monocytes (%) (Auto) 7.7, Eosinophils (%) (Auto) 3.2, Basophils (%) (Auto) 0.7, Neutrophils # (Auto) 3.69, Lymphocytes # (Auto) 1.24, Monocytes # (Auto) 0.43, Eosinophils # (Auto) 0.18, Basophils # (Auto) 0.04 08/31/17 11:05 Test 08/31/17 11:05 08/31/17 12:16 White Blood Count 5.59 K/uL (4.8-10.8) Red Blood Count 4.56 M/uL (4.7-6.1) Hemoglobin 11.4 g/dL (14.0-18.0) Hematocrit 37.0 % (42-52) Mean Corpuscular Volume 81.1 fL (80-100) Mean Corpuscular Hemoglobin 25.0 pg (25-34) Mean Corpuscular Hemoglobin Concent 30.8 g/dl (32-36) Platelet Count 427 K/uL (130-400) Mean Platelet Volume 8.6 fL (7.4-10.4) Neutrophils (%) (Auto) 66.0 % Lymphocytes (%) (Auto) 22.2 % Monocytes (%) (Auto) 7.7 % Eosinophils (%) (Auto) 3.2 % Basophils (%) (Auto) 0.7 % Neutrophils # (Auto) 3.69 K/uL (1.4-6.5) Lymphocytes # (Auto) 1.24 K/uL (1.2-3.4) Monocytes # (Auto) 0.43 K/uL (0.11-0.59) Eosinophils # (Auto) 0.18 K/uL (0-0.5) Basophils # (Auto) 0.04 K/uL (0-0.2) RDW Standard Deviation 51.1 fL (36.4-46.3) RDW Coefficient of Variation 17.1 % (11.5-14.5) Immature Granulocyte % (Auto) 0.2 % Immature Granulocyte # (Auto) 0.01 K/uL (0.00-0.02) Anion Gap 5.0 mmol/L (3-11) Estimated GFR () 97.1 Estimated GFR (Non- 83.8 BUN/Creatinine Ratio 11.6 (10-20) Lactic Acid Level 1.4 mmol/L (0.4-2.0) Calcium Level 8.7 mg/dl (8.5-10.1) Total Bilirubin 0.4 mg/dl (0.2-1) Direct Bilirubin < 0.1 mg/dl (0-0.2) Aspartate Amino Transf (AST/SGOT) 15 U/L (15-37) Alanine Aminotransferase (ALT/SGPT) 17 U/L (12-78) Alkaline Phosphatase 116 U/L (45-117) Total Protein 7.9 gm/dl (6.4-8.2) Albumin 3.3 gm/dl (3.4-5.0) Lipase 503 U/L (73-393) Influenza Type A (RT-PCR) Neg for Influ A (NEG) Influenza Type A Antigen Neg for Influ A (NEG) Influenza Type B Antigen Neg for Influ B (NEG) Influenza Type B (RT-PCR) Neg for Influ B (NEG) Urine Color ORANGE Urine Appearance CLEAR (CLEAR) Urine pH 5.5 (4.5-7.5) Urine Specific Webb 1.028 (1.000-1.030) Urine Protein 1+ (NEG) Urine Glucose (UA) NEG (NEG) Urine Ketones TRACE (NEG) Urine Occult Blood NEG (NEG) Urine Nitrite NEG (NEG) Urine Bilirubin NEG (NEG) Urine Urobilinogen NEG (NEG) Urine Leukocyte Esterase NEG (NEG) Urine WBC (Auto) 1-5 /hpf (0-5) Urine RBC (Auto) 0-4 /hpf (0-4) Urine Hyaline Casts (Auto) 10-30 /lpf (0-5) Urine Epithelial Cells (Auto) 20-30 /lpf (0-5) Urine Bacteria (Auto) NEG (NEG) Laboratory results reviewed by me Medications Administered Medications (Trade) Dose Ordered Sig/Tyree Route Start Time Stop Time Status Last Admin Dose Admin Sodium Chloride 1,000 ml @ 999 mls/hr Q1H1M STAT IV 08/31/17 10:39 08/31/17 11:39 DC 08/31/17 11:06 999 MLS/HR Ondansetron HCl (Zofran Inj) 4 mg NOW STAT IV 08/31/17 10:39 08/31/17 10:47 DC 08/31/17 11:06 4 MG Fentanyl Citrate (Fentanyl Inj) 50 mcg NOW STAT IV 08/31/17 11:23 08/31/17 11:24 DC 08/31/17 11:33 50 MCG Morphine Sulfate (MoRPHine SULFATE INJ) 6 mg NOW STAT IV 08/31/17 12:17 08/31/17 12:18 DC 08/31/17 12:30 6 MG Hydromorphone HCl (Dilaudid Inj) 0.5 mg NOW STAT IV 08/31/17 14:55 08/31/17 14:56 DC 08/31/17 15:02 0.5 MG Procedure Radiology results as stated below per my review and radiologist interpretation: ABD/PELVIS IV CONTRAST ONLY CT DOSE: 517.68 mGy.cm HISTORY: Pain diarrhea, abd pain TECHNIQUE: Multiaxial CT images of the abdomen and pelvis were performed following the use of intravenous contrast. A dose lowering technique was utilized adhering to the principles of ALARA. COMPARISON STUDY: 07/16/2017. 07/26/2017. FINDINGS: Patchy parenchymal infiltrative changes in the lung bases somewhat variable from the prior 2 studies. Although variable, overall geographic extent is similar. External hernia unchanged. Several hepatic cysts unchanged. Upper pole left renal cyst unchanged. The kidneys are considered negative for hydronephrosis. Stable mild atrophic change right kidney. Trace amount of sludge and or debris within the gallbladder lumen. No evidence for gallbladder distention.. Pancreas is uniform. Spleen enhances uniformly. Bowel pattern is nonobstructive. Improved bowel wall thickening procedure described with no current evidence for colitis. Partial small bowel malrotation. Several moderately distended loops of proximal to mid jejunum in the left central pelvic region. Mild residual wall thickening of the wall of the cecum. Moderate wall thickening of the proximal to mid small bowel consistent with a nonspecific inflammatory small bowel enteritis and/or inflammatory bowel change. No evidence for abscess or collection. Mild chronic sigmoid diverticulosis. No evidence for acute diverticulitis. IMPRESSION: 1. Patchy variable persistent infiltrative changes in both lung bases highly suggestive of a potential aspiration pneumonitis 2. Several hepatic as well as renal cysts unchanged. 3. Mild stable right renal atrophy. 4. 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 These loops show moderate distention as well as moderate wall edematous change. 5. Mild residual inflammatory small bowel change, primarily of the proximal to mid small bowel, as well as mild nonspecific wall edema of the cecum. Chronic sigmoid diverticulosis with no evidence for acute diverticulitis. 6. The appearance overall is suggestive of enteritis with a component of superimposed small bowel inflammatory change.. 7. Mild chronic sigmoid diverticulosis with no evidence for acute diverticulitis. The above report was generated using voice recognition software. It may contain grammatical, syntax or spelling errors. Electronically signed by: Raman Julio M.D. 08/31/2017 1:25 PM Dictated Date/Time: 08/31/2017 1:12 PM CHEST ONE VIEW PORTABLE HISTORY: 61 years-old Male CHEST PAIN acute atypical chest pain COMPARISON: Chest radiographs 07/30/2017, chest CT 07/26/2017 TECHNIQUE: Portable AP view of the chest FINDINGS: Cardiomediastinal and hilar silhouettes are within normal limits. Emphysema with hyperinflation. There are persistent patchy multifocal alveolar opacities bilaterally, notably within the right greater than left lower lobes and right upper lobe. Disease within the right upper lobe has improved in disease within the right lung base appears stable to slightly worsened. No pneumothorax or large pleural effusion. Bones of the chest appear grossly intact. IMPRESSION: 1. Patchy alveolar opacities are again seen within the right greater than left lung bases and right upper lobe. There is improved aeration of the right upper lobe with stable to slightly worsened disease within the right lung base. 2. Advanced emphysema. The above report was generated using voice recognition software. It may contain grammatical, syntax or spelling errors. Electronically signed by: Des Olivier M.D. 08/31/2017 11:38 AM Dictated Date/Time: 08/31/2017 11:35 AM ECG Indication: chest pain Rate (beats per minute): 70 Rhythm: sinus rhythm (with sinus arrhythmia) Findings: PVC (occasional ), no acute ischemic change, other (normal axis) ED Course 1045: The patient was evaluated in room C9. A complete history and physical exam was performed. 1231: I reevaluated the patient, who was resting comfortably. 1436: I reevaluated the patient. I updated him on his test results, he verbalized complete understanding. 1453: I reevaluated the patient and updated him on his treatment plan. The patient wants to be admitted because his diarrhea and abdominal pain are continuing. 1501: I discussed the patient with GHAZALA Ribeiro - He will evaluate the patient for further treatment. Medical Decision I reviewed the patient's past medical history, medications, and the nursing notes as described above. The patient's presentation and history were concerning for Colitis, C Diff, Gastroenteritis, Gastritis, Obstruction, Diverticulitis, UTI, Pyelonephritis, Ureteral Stone. The patient is a 61 y/o gentleman with a pmhx of pancolitis, C-diff, multi- focal pna who presents to the emergency department with multiple complaints including CP, SOB, diffuse abdominal pain and persistent diarrhea in the setting on outpatient PO vanco per HPI. On arrival the patient is in relatively well-appearing in NAD, AFVSS. On exam the patient has generalized abdominal ttp greatest at RLQ and RUQ. No peritoneal signs. Labs unremarkable including WBC and lactate wnl. CXR overall appears stable to improved. CT abd/pelvis with findings c/w enteritis. No obstruction. I d/w the patient that his findings appear largely stable to improved and that he is currently on the appropriate treatment for his C-diff. However, patient adamant that he feels he needs to be admitted given that his pain has been so severe and he feels that his diarrhea over the past couple weeks has been getting worse and not better. Patient was given fentanyl and morphine for pain however her reports that only Dilaudid works for his pain. Thus, Dilaudid ordered however counseled on the risks of narcotic dependence. Given the patient's report of worsening symptoms will admit the patient for pain control and GI consultation with possible colonoscopy , may also benefit from pain management evaluation. Case d/w Dr. He, [facility] hospitalist, who will admit the patient for further management. Medication Reconcilliation Current Medication List: was personally reviewed by me Consults Time Called: 1501 Consulting Physician: GHAZALA Ribeiro Returned Call: 1501 I discussed the patient with GHAZALA Ribeiro - He will evaluate the patient for further treatment. Impression Primary Impression: C. difficile colitis Scribe Attestation The scribe's documentation has been prepared under my direction and personally reviewed by me in its entirety. I confirm that the note above accurately reflects all work, treatment, procedures, and medical decision making performed by me. Departure Information Dispostion Being Evaluated By Hospitalist Referrals Zach Monroy M.D. (PCP) Forms Call Back Authorization, HOME CARE DOCUMENTATION FORM, IMPORTANT VISIT INFORMATION Patient Instructions [facility]
[2017-08-31] MEDS ORDERED: OPTIRAY 320 IV PRN (11:15)
[2017-08-31 11:20] LABS: BASO % 0.7 %; BASO ABS # 0.04 K/uL (0-0.2); EOS % 3.2 %; EOS ABS # 0.18 K/uL (0-0.5); HEMOGLOBIN 11.4 g/dL (14.0-18.0); IG# 0.01 K/uL (0.00-0.02); LYMPH % 22.2 %; LYMPH ABS # 1.24 K/uL (1.2-3.4); MEAN CELL VOLUME 81.1 fL (80-100); MEAN CORPUSCULAR HGB CONC 30.8 g/dl (32-36); MEAN PLATELET VOLUME 8.6 fL (7.4-10.4); MONO % 7.7 %; MONO ABS # 0.43 K/uL (0.11-0.59); NEUT ABS # 3.69 K/uL (1.4-6.5); PLATELET COUNT 427 K/uL (130-400); RED CELL DISTRIBUTION WIDTH CV 17.1 % (11.5-14.5); RED CELL DISTRIBUTION WIDTH SD 51.1 fL (36.4-46.3); WHITE BLOOD COUNT 5.59 K/uL (4.8-10.8)
[2017-08-31] MEDS ORDERED: VANC5CAP PO (11:22)
[2017-08-31] MEDS ORDERED: FENTANYL CITRATE INJ 50 MCG/1 ML 2 ML VIAL IV STA (11:23)
[2017-08-31 11:35] LABS: ALBUMIN 3.3 gm/dl (3.4-5.0); ALT/SGPT 17 U/L (12-78); AST/SGOT 15 U/L (15-37); BLOOD UREA NITROGEN 11 mg/dl (7-18); CALCIUM 8.7 mg/dl (8.5-10.1); CARBON DIOXIDE 30 mmol/L (21-32); CREATININE 0.96 mg/dl (0.60-1.40); GLUCOSE 91 mg/dl (70-99); LIPASE 503 U/L (73-393); POTASSIUM 3.2 mmol/L (3.5-5.1); SODIUM 139 mmol/L (136-145)
--- NOTE | 2017-08-31 11:39 | DIAGNOSTIC IMAGING REPORT ---
CHEST ONE VIEW PORTABLE HISTORY: 61 years-old Male CHEST PAIN acute atypical chest pain COMPARISON: Chest radiographs 07/30/2017, chest CT 07/26/2017 TECHNIQUE: Portable AP view of the chest FINDINGS: Cardiomediastinal and hilar silhouettes are within normal limits. Emphysema with hyperinflation. There are persistent patchy multifocal alveolar opacities bilaterally, notably within the right greater than left lower lobes and right upper lobe. Disease within the right upper lobe has improved in disease within the right lung base appears stable to slightly worsened. No pneumothorax or large pleural effusion. Bones of the chest appear grossly intact. IMPRESSION: 1. Patchy alveolar opacities are again seen within the right greater than left lung bases and right upper lobe. There is improved aeration of the right upper lobe with stable to slightly worsened disease within the right lung base. 2. Advanced emphysema. The above report was generated using voice recognition software. It may contain grammatical, syntax or spelling errors. Electronically signed by: Des Olivier M.D. 08/31/2017 11:38 AM Dictated Date/Time: 08/31/2017 11:35 AM
[2017-08-31 11:41] LABS: ALKALINE PHOSPHATASE 116 U/L (45-117); TOTAL PROTEIN 7.9 gm/dl (6.4-8.2)
[2017-08-31] MEDS ORDERED: MoRPHine SULFATE 10 MG/ML CARP/VIAL IV STA (12:17)
[2017-08-31 12:20] LABS: INFLUENZA B ANTIGEN Neg for Influ B (NEG)
[2017-08-31 13:13] LABS: INFLUENZA A PCR Neg for Influ A (NEG); INFLUENZA B PCR Neg for Influ B (NEG)
--- NOTE | 2017-08-31 13:27 | DIAGNOSTIC IMAGING REPORT ---
ABD/PELVIS IV CONTRAST ONLY CT DOSE: 517.68 mGy.cm HISTORY: Pain diarrhea, abd pain TECHNIQUE: Multiaxial CT images of the abdomen and pelvis were performed following the use of intravenous contrast. A dose lowering technique was utilized adhering to the principles of ALARA. COMPARISON STUDY: 07/16/2017. 07/26/2017. FINDINGS: Patchy parenchymal infiltrative changes in the lung bases somewhat variable from the prior 2 studies. Although variable, overall geographic extent is similar. External hernia unchanged. Several hepatic cysts unchanged. Upper pole left renal cyst unchanged. The kidneys are considered negative for hydronephrosis. Stable mild atrophic change right kidney. Trace amount of sludge and or debris within the gallbladder lumen. No evidence for gallbladder distention.. Pancreas is uniform. Spleen enhances uniformly. Bowel pattern is nonobstructive. Improved bowel wall thickening procedure described with no current evidence for colitis. Partial small bowel malrotation. Several moderately distended loops of proximal to mid jejunum in the left central pelvic region. Mild residual wall thickening of the wall of the cecum. Moderate wall thickening of the proximal to mid small bowel consistent with a nonspecific inflammatory small bowel enteritis and/or inflammatory bowel change. No evidence for abscess or collection. Mild chronic sigmoid diverticulosis. No evidence for acute diverticulitis. IMPRESSION: 1. Patchy variable persistent infiltrative changes in both lung bases highly suggestive of a potential aspiration pneumonitis 2. Several hepatic as well as renal cysts unchanged. 3. Mild stable right renal atrophy. 4. 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 These loops show moderate distention as well as moderate wall edematous change. 5. Mild residual inflammatory small bowel change, primarily of the proximal to mid small bowel, as well as mild nonspecific wall edema of the cecum. Chronic sigmoid diverticulosis with no evidence for acute diverticulitis. 6. The appearance overall is suggestive of enteritis with a component of superimposed small bowel inflammatory change.. 7. Mild chronic sigmoid diverticulosis with no evidence for acute diverticulitis. The above report was generated using voice recognition software. It may contain grammatical, syntax or spelling errors. Electronically signed by: Raman Julio M.D. 08/31/2017 1:25 PM Dictated Date/Time: 08/31/2017 1:12 PM
[2017-08-31] MEDS ORDERED: HYDROmorphone INJ 0.5 MG/0.5 ML SYR IV STA (14:55)
[2017-08-31] MEDS ORDERED: ONDANSETRON INJ 2 MG/ML 2 ML VIAL IV PRN (15:45)
[2017-08-31] MEDS ORDERED: ALBUTEROL HFA 8 GM INHALER INH PRN (16:00)
[2017-08-31] MEDS ORDERED: RASPBERRY SYRUP 5 ML UDP PO SCH (17:00)
[2017-08-31] MEDS ORDERED: VANCOMYCIN HCL 125 MG/2.5ML SOLN PO SCH (17:00)
[2017-08-31] MEDS ORDERED: METRONIDAZOLE / NSS 500 MG in PREMIXED NSS 100 ML IV ONE (17:00)
[2017-08-31] MEDS: CLONIDINE HCL 0.1 MG TAB PO PRN (17:01)
[2017-08-31 17:20] VITALS: BP 182/87; PULSE 74; TEMP 36.5; O2SAT 93; Ht 185.4 cm; Wt 87.0 kg
[2017-08-31] MEDS: OXYCODONE/ACETAMINOPHEN 5-325 TAB PO PRN ×2 (18:06→22:54)
[2017-08-31] MEDS ORDERED: HYDROmorphone INJ 0.5 MG/0.5 ML SYR ONE (18:44)
--- NOTE | 2017-08-31 18:46 | HISTORY & PHYSICAL EXAMINATION ---
DATE OF ADMISSION: 08/31/2017 PRIMARY CARE PHYSICIAN: Porfirio CHIEF COMPLAINT: Profuse diarrhea with history of C. diff colitis, on vancomycin for 10 days; abdominal pain; palpitation. HISTORY OF PRESENT COMPLAINT: He is a 61-year-old male with significant past medical history of severe COPD, on home oxygen; depression and anxiety; history of Joyce esophagus; hypertension; nonspecific chest pain; tobacco use disorder; cervical radicular pain; and also hiatal hernia. Apparently was in hospital recently with diarrhea, pancolitis and his syncope. He went home on 08/01/2017 and he has been taking vancomycin for the last 10 days for ongoing C. diff colitis. He is back here to the Emergency Room today with abdominal pain, generalized, associated with diarrhea, that has been going on about 10-12 times a day. He also complains to have occasional palpitation and occasional dizziness; and in the ER, he was noted to have very high blood pressure at times of systolic 212 and diastolic 112 and that went down to systolic 170s with palpitation. He also complained to have some chest pain associated with it. No fever, chills, or rigors. No nausea and/or vomiting and does not have any increasing swelling of the legs. He is worried about having heart attack and he is worried about having stroke too with this high blood pressure. His apparent labs and imaging studies came out to be fairly remarkable for nonspecific small intestinal changes, diverticulosis without diverticulitis, and blood pressure noted to be very high in the Emergency Room. From that point, he was admitted to telemetry unit for continuation of care. PAST MEDICAL HISTORY: Significant for severe COPD, depression and anxiety, history of Joyce esophagus, closed compression fracture of thoracic vertebra and also cervical pain, chest pain, tobacco use disorder, hypertension, and history of hiatal hernia. PAST SURGICAL HISTORY: Significant for excision of skin from the basal cell carcinoma, appendectomy, excision of right knee tumor, colon resection in the past, hernia repair with hydrocele, scalp graft in the past. FAMILY HISTORY: No family history in the file. SOCIAL HISTORY: He is . He still continues to have occasional cigarettes. He uses alcohol socially. Does not use any drugs and he seems to be reasonably ambulant. REVIEW OF SYSTEMS: Other systemic review unremarkable except those mentioned in the history of present complaint. ALLERGIES: SHELLFISH, ONION, CAPTOPRIL AND CODEINE. MEDICATIONS: As an outpatient, he has been taking Breo 1 puff daily, home oxygen, albuterol 2 puffs q.i.d. as needed, aspirin 81 mg daily, cholestyramine 4 gram b.i.d., ipratropium bromide q. 6 hourly as needed, albuterol q. 6 hourly as needed, Toprol-XL 100 mg daily, oxycodone 1 tablet q. 4 to 6 hours as needed, Protonix 40 mg in the morning, paroxetine 40 mg in the morning, vancomycin 125 mg as directed, and Ambien 10 mg daily. PHYSICAL EXAMINATION: GENERAL: On examination in the Emergency Room, he was not having any acute distress, but he did have some pain in the abdomen. VITAL SIGNS: Temperature 36.7, pulse 76, blood pressure 146/96, saturating 98% on room air. His blood pressure fluctuates very much, in the ER at one point, he went up to 212/112, but coming down to 189/104. HEENT: Unremarkable. NECK: Supple. No JVD, no bruit. CHEST: Decreased breath sounds both sides with more on the left than the right, but no crackles. HEART: S1, S2 regular. ABDOMEN: Soft, benign, tender all over but no guarding or rigidity. Bowel sounds present. EXTREMITIES: Negative for any edema. MUSCULOSKELETAL: Did not show any acute arthritis involving any joint. CENTRAL NERVOUS SYSTEM: He was alert, awake, oriented x3. No focal sensory and/or motor deficit appreciated. LABORATORY DATA: Noted today white count was 5.59, H&H 11.4/37.0, platelet was 427. Sodium 139, potassium 3.2, chloride 104, carbon dioxide 30, BUN 11, creatinine 0.96. LFTs normal. Troponin less than 0.015, lipase of 503. UA examination is fairly unremarkable. Chest x-ray reported as patchy alveolar opacities, that again seen within the right greater than the left lung bases, right upper lobe. There is improved aeration in the right upper lobe with stable to slightly worsened disease within the right lung base, advanced emphysema. 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 EKG was in sinus rhythm with premature ventricular complexes, but no significant ST-T wave changes, rate 70 per minute. IMPRESSION AND PLAN: 1. Chronic diarrhea with recent history of Clostridium difficile colitis. The CAT scan did show some enteritis. We will put him on IV metronidazole on top of oral vancomycin. We will get a Gastrointestinal evaluation while in the hospital. Repeat stool culture and stool for Clostridium difficile. He has hypokalemia from chronic diarrhea, we will replace that. 2. Uncontrolled hypertension, seems to be paroxysmal. He has been on metoprolol, continue with that and we will put him on clonidine as needed for blood pressure control. 3. Chest pain with palpitations. We will get serial cardiac enzymes, May need an echocardiogram while in the hospital. 4. Severe chronic obstructive pulmonary disease with emphysematous change. There is no exacerbation at this time, as such, we will not put him on any steroid at this time. 5. Depression and anxiety. Continue current medication. 6. Chronic neck and back pain. Continue with Percocet. He may need additional doses of intravenous pain medications while in the hospital. 7. Gastrointestinal prophylaxis with Protonix. 8. Deep venous thrombosis prophylaxis with Lovenox. 9. Code status. He will be a full code. In my clinical judgment, the beneficiary meets criteria as per CMS for 2 midnight in the hospital. MTDEdison
[2017-08-31] MEDS: ENOXAPARIN 40 MG/0.4 ML SYR SC SCH (18:47)
[2017-08-31] MEDS: LACTOBACILLUS ACIDOPHILUS (FLORANEX) TAB PO SCH (18:47)
[2017-08-31] MEDS: LEVALBUTEROL 0.63MG/3 ML NEB INH SCH (19:44)
[2017-08-31] MEDS: IPRATROPIUM BROMIDE NEB SOLN 0.02% 2.5 ML VIAL INH SCH (19:44)
[2017-08-31 19:48] VITALS: PULSE 76; O2SAT 93
[2017-08-31] MEDS: CHOLESTYRAMINE LIGHT 4 GM PKT PO SCH (20:32)
[2017-08-31 20:51] VITALS: BP 142/87; PULSE 62; TEMP 36.3; O2SAT 92
[2017-08-31] MEDS: HYDROmorphone INJ 1 MG/ML SYR IV PRN (23:50)
[2017-08-31] MEDS: ZOLPIDEM TARTRATE 10 MG TAB PO PRN (23:51)
[2017-09-01] VITALS (12 sets, daily range): BP systolic 151–177; BP diastolic 79–93; PULSE 75–96; TEMP 36.4–36.6; O2SAT 84–99
[2017-09-01] MEDS: METRONIDAZOLE / NSS 500 MG in PREMIXED NSS 100 ML IV SCH ×2 (01:29→08:21)
[2017-09-01] MEDS: LEVALBUTEROL 0.63MG/3 ML NEB INH SCH ×4 (01:49→19:53)
[2017-09-01] MEDS: IPRATROPIUM BROMIDE NEB SOLN 0.02% 2.5 ML VIAL INH SCH ×4 (01:49→19:53)
[2017-09-01] MEDS: HYDROmorphone INJ 1 MG/ML SYR IV PRN ×5 (04:18→20:26)
[2017-09-01] MEDS: LACTOBACILLUS ACIDOPHILUS (FLORANEX) TAB PO SCH ×3 (08:21→16:49)
[2017-09-01] MEDS: ASPIRIN 81 MG CHEW PO SCH (08:22)
[2017-09-01] MEDS: PANTOprazole SOD 40 MG TAB PO SCH (08:22)
[2017-09-01] MEDS: METOPROLOL SUCC 50MG EXT REL TAB PO SCH (08:22)
[2017-09-01] MEDS: PAROXETINE 20 MG TAB PO SCH (08:22)
[2017-09-01] MEDS: CHOLESTYRAMINE LIGHT 4 GM PKT PO SCH ×2 (09:45→20:24)
[2017-09-01] MEDS: OXYCODONE/ACETAMINOPHEN 5-325 TAB PO PRN ×3 (09:45→18:45)
[2017-09-01 11:39] LABS: CALCIUM 8.1 mg/dl (8.5-10.1); CREATININE 0.93 mg/dl (0.60-1.40); POTASSIUM 3.5 mmol/L (3.5-5.1)
--- NOTE | 2017-09-01 12:07 | GASTROINTESTINAL CONSULTATION ---
DATE OF CONSULTATION: 09/01/2017 DATE OF CONSULTATION: 09/01/2017 REFERRED BY: Dr. Abernathy. HISTORY OF PRESENT ILLNESS: I was asked by Dr. Abernathy to consult on this gentleman for evaluation of current C. diff. The patient is a 61-year-old who has been struggling with C. diff since May. He had a normal colonoscopy in 2015 for screening but did not show any evidence of colitis. I think he had 2 diminutive polyps, however in May he was treated for bilateral pneumonia with high dose antibiotics and developed C. diff. Since that time he has struggled with recurrent C. diff because he has had repeated courses of antibiotics for pneumonia. In fact he was sent home recently in July on treatment for C. diff and treatment for his pneumonia. He comes in again with some shortness of breath, dizzy spells and increased stooling, though he denied any fevers. He also had some low grade abdominal discomfort. He has a history of severe COPD on home O2, depression, anxiety. He has been taking vancomycin every other day according to his history as an outpatient. It is when he switched down to every other day that he feels his diarrhea became exacerbated about 8-10 times a day. He denies any significant bleeding. I reviewed his medical records and past medical history and his past medical history is significant for COPD, depression, anxiety, Joyce's esophagus, C. diff, hiatal hernia, hypertension. He has also had numerous pneumonias. SOCIAL HISTORY: Significant for alcohol use and smoking. FAMILY HISTORY: Negative for gastrointestinal disease. ALLERGIES: HE IS ALLERGIC TO SHELLFISH, ONIONS, CAPTOPRIL AND CODEINE. OUTPATIENT MEDICATIONS: Include numerous inhalers, oxygen, Toprol XL, oxycodone p.r.n., cholestyramine, Protonix, vancomycin 125 every other day, paroxetine and Ambien. REVIEW OF SYSTEMS: As above, otherwise he denies any change in vision or hearing. He has had no recent pruritus, icterus, or jaundice. He denies any seizures. He denies any increased depression. He has had no dysuria. He has had no nausea or vomiting. He has had no productive cough though he has a chronic cough. He has some occasional shortness of breath and baseline poor exercise tolerance. He denies any palpitations. He denies any easy bruising. He has no joint swelling or heat or cold intolerance. PHYSICAL EXAMINATION: GENERAL: Reveals a gentleman lying in bed, no distress. VITAL SIGNS: Most recent temperature is 36.5, blood pressure 155/79, pulse 96. SKIN: anicteric. EYES: Show anicteric sclera. MOUTH: Clear of lesions. NECK: Supple. CHEST: Diffuse scattered rhonchi. ABDOMEN: Soft with good bowel sounds. No organomegaly, masses or rebound tenderness noted. HEART: Regular rate and rhythm. EXTREMITIES: Warm with good distal pulses. No edema. NEUROLOGIC: He is grossly intact. Alert and oriented x3. LABORATORY DATA: Show white blood cell count of 5.5, hemoglobin 11.4, platelet count 427,000. CT of the abdomen and pelvis with IV contrast showed that the bowel wall thickening was improved with no evidence of recurrent colitis. IMPRESSION: A 61-year-old gentleman with diarrhea and history of C. diff. At this point it is difficult to know whether he has recurrent C. diff or just continued diarrhea. I do agree with checking his stools for C. diff and I would put him on vancomycin every day at this point. He could just be having diarrhea and if this is the case one thing that may be contributing to this is his proton pump inhibitor. I know he is on this for his Joyce's esophagus but if he continues to have recurrent C. diff it may be reasonable to stop his PPI and try an H2 shravan. Certainly medications can cause diarrhea. It is reassuring that the CAT scan did not show any sinister pathology. If his stool test returned positive for C. diff I would also consider infectious disease input for this gentleman given the difficulty in treating him because of his recurrent pneumonias, need for antibiotics for that which are no doubt creating some of the issue with his C. diff. [facility] INSANEEdison
[2017-09-01] MEDS ORDERED: POTASSIUM CHLORIDE 10 MEQ TABCR PO ONE (14:00)
[2017-09-01] MEDS: NSS + 20MEQ KCL 1000ML 1,000 ML IV SCH (14:39)
[2017-09-01] MEDS: CLONIDINE HCL 0.1 MG TAB PO PRN (14:45)
[2017-09-01] MEDS ORDERED: ALUMINUM/MAGNESIUM/SIMETH (MAALOX MAX) 30 ML UDC PO STA (16:21)
[2017-09-01] MEDS: ENOXAPARIN 40 MG/0.4 ML SYR SC SCH (17:33)
--- NOTE | 2017-09-01 18:48 | Progress Note ---
Internal Med Progress Note Date of Service: Sep 01, 2017. Provider Documentation: SUBJECTIVE: resting comfortably' having diarrheas has abdominal discomfort no sob febrile OBJECTIVE: Vital Signs-as noted below Exam: General-alert and oriented. Not in distress ENT-Normal hearing Neck-no neck masses supple Lungs-cta b/l no crackles present no wheezing present Heart-S1 and S2 heard regular rate and rthym, no murmurs Abdomen-Soft bowel sounds present non tender distended Extremities-no edema no erythema Neuro-alert and awake moves extremities Lab data as noted below. ASSESSMENT & PLAN: 1. Chronic diarrhea with recent history of Clostridium difficile colitis. The CAT scan did show some enteritis. on IV metronidazole and oral vancomycin.stool cx negative for c diff will d/c flagyl will d/w GI regarding vancomycin. . 2. Uncontrolled hypertension, seems to be paroxysmal. on Lopressor clonidine prn. will monitor. 3. Chest pain with palpitations. serial ce negative. ekg ok stable. 4. Severe chronic obstructive pulmonary disease with emphysematous change. stable. 5. Depression and anxiety. stable on home medication. 6. Chronic neck and back pain. on Percocet. Dilaudid prn. 7. Gastrointestinal prophylaxis with Protonix. 8. Deep venous thrombosis prophylaxis with Lovenox. 9. Code status. He will be a full code DISPOSITION transfer to medical floor Vital Signs: Date Time Temp Pulse Resp B/P (MAP) Pulse Ox O2 Delivery O2 Flow Rate FiO2 09/01/17 16:45 36.5 78 151/87 (108) 98 Room Air 09/01/17 16:00 95 Room Air 09/01/17 15:06 36.5 82 18 95 09/01/17 14:23 82 18 95 Room Air 09/01/17 12:04 36.5 85 18 177/90 (119) 97 Room Air 09/01/17 12:00 Room Air 09/01/17 08:00 Room Air 09/01/17 07:56 36.5 96 20 155/79 (104) 99 Room Air 09/01/17 06:56 88 18 93 Room Air 09/01/17 04:00 2.0 09/01/17 03:12 36.4 95 18 151/81 (104) 93 Nasal Cannula 2.0 09/01/17 01:52 93 18 84 Room Air 09/01/17 00:06 36.5 75 18 154/93 (113) 93 Room Air 09/01/17 00:00 Room Air 2.0 Nasal Cannula 08/31/17 20:51 36.3 62 18 142/87 (105) 92 Room Air 08/31/17 20:00 Room Air 2.0 Nasal Cannula 08/31/17 19:48 76 18 93 Room Air Lab Results: Results Past 24 Hours Test 08/31/17 22:57 09/01/17 05:17 Range/Units Troponin I < 0.015 < 0.015 0-0.045 ng/ml Sodium Level 138 136-145 mmol/L Potassium Level 3.5 3.5-5.1 mmol/L Chloride Level 105 98-107 mmol/L Carbon Dioxide Level 30 21-32 mmol/L Anion Gap 3.0 3-11 mmol/L Blood Urea Nitrogen 14 7-18 mg/dl Creatinine 0.93 0.60-1.40 mg/dl Est Creatinine Clear Calc Drug Dose 91.9 ml/min Estimated GFR () 100.9 Estimated GFR (Non- 87.1 BUN/Creatinine Ratio 15.4 10-20 Random Glucose 99 70-99 mg/dl Calcium Level 8.1 8.5-10.1 mg/dl Magnesium Level 1.6 1.8-2.4 mg/dl Lipase 344 73-393 U/L Microbiology Results 09/01/17 C.difficile Toxin B Gene (PCR) - Final, Complete No C. difficile toxin B gene detected
[2017-09-01] MEDS: MAGNESIUM CHLORIDE 64MG DELAYED REL TAB PO SCH (19:58)
[2017-09-01] MEDS: ZOLPIDEM TARTRATE 10 MG TAB PO PRN (21:23)
[2017-09-02] VITALS (8 sets, daily range): BP systolic 135–152; BP diastolic 79–88; PULSE 73–90; TEMP 36.2–36.4; O2SAT 92–100
[2017-09-02] MEDS: NSS + 20MEQ KCL 1000ML 1,000 ML IV SCH ×2 (00:54→09:50)
[2017-09-02] MEDS: HYDROmorphone INJ 1 MG/ML SYR IV PRN ×6 (00:54→20:32)
[2017-09-02] MEDS: IPRATROPIUM BROMIDE NEB SOLN 0.02% 2.5 ML VIAL INH SCH ×4 (01:55→19:05)
[2017-09-02] MEDS: LEVALBUTEROL 0.63MG/3 ML NEB INH SCH ×4 (01:55→19:05)
[2017-09-02] MEDS: OXYCODONE/ACETAMINOPHEN 5-325 TAB PO PRN ×4 (03:11→22:03)
[2017-09-02 06:29] LABS: HEMATOCRIT 27.1 % (42-52); HEMOGLOBIN 8.1 g/dL (14.0-18.0); MEAN CELL VOLUME 81.9 fL (80-100); MEAN CORPUSCULAR HEMOGLOBIN 24.5 pg (25-34); MEAN CORPUSCULAR HGB CONC 29.9 g/dl (32-36); MEAN PLATELET VOLUME 8.3 fL (7.4-10.4); PLATELET COUNT 238 K/uL (130-400); RED CELL DISTRIBUTION WIDTH CV 17.1 % (11.5-14.5); RED CELL DISTRIBUTION WIDTH SD 51.5 fL (36.4-46.3); WHITE BLOOD COUNT 6.85 K/uL (4.8-10.8)
[2017-09-02 07:09] LABS: BASO % 0.6 %; BASO ABS # 0.04 K/uL (0-0.2); EOS % 2.2 %; EOS ABS # 0.15 K/uL (0-0.5); IG# 0.02 K/uL (0.00-0.02); LYMPH % 20.7 %; LYMPH ABS # 1.42 K/uL (1.2-3.4); MONO ABS # 0.55 K/uL (0.11-0.59); NEUT % 68.2 %; NEUT ABS # 4.67 K/uL (1.4-6.5)
[2017-09-02 07:13] LABS: CALCIUM 7.9 mg/dl (8.5-10.1); CREATININE 0.61 mg/dl (0.60-1.40); POTASSIUM 4.4 mmol/L (3.5-5.1)
[2017-09-02] MEDS: ALUMINUM/MAGNESIUM/SIMETH (MAALOX MAX) 30 ML UDC PO PRN (07:57)
[2017-09-02] MEDS: PANTOprazole SOD 40 MG TAB PO SCH (07:59)
[2017-09-02] MEDS: MAGNESIUM CHLORIDE 64MG DELAYED REL TAB PO SCH ×2 (08:32→19:35)
[2017-09-02] MEDS: LACTOBACILLUS ACIDOPHILUS (FLORANEX) TAB PO SCH ×3 (08:32→16:26)
[2017-09-02] MEDS: METOPROLOL SUCC 50MG EXT REL TAB PO SCH (08:33)
[2017-09-02] MEDS: PAROXETINE 20 MG TAB PO SCH (08:33)
[2017-09-02] MEDS: ASPIRIN 81 MG CHEW PO SCH (08:36)
[2017-09-02] MEDS ORDERED: VANCOMYCIN HCL 125 MG CAP PO SCH (09:00)
[2017-09-02] MEDS: CHOLESTYRAMINE LIGHT 4 GM PKT PO SCH ×2 (09:50→19:37)
[2017-09-02] MEDS: ENOXAPARIN 40 MG/0.4 ML SYR SC SCH (17:58)
[2017-09-02] MEDS ORDERED: SODIUM CHLORIDE 0.9% 1000ML 1,000 ML IV SCH (18:15)
--- NOTE | 2017-09-02 18:21 | Progress Note ---
Internal Med Progress Note Date of Service: Sep 02, 2017. Provider Documentation: SUBJECTIVE: ambulating ok still has diarrhea has chronic back pain and has flank pains request to check his kidneys says has swelling of legs afebrile OBJECTIVE: Vital Signs-as noted below Exam: General-alert and oriented. Not in distress ENT-Normal hearing Neck-no neck masses supple Lungs-cta b/l no crackles present no wheezing present Heart-S1 and S2 heard regular rate and rthym, no murmurs Abdomen-Soft bowel sounds present non tender distended Extremities-pedal edema present no erythema Neuro-alert and awake moves extremities Lab data as noted below. ASSESSMENT & PLAN: 1. Chronic diarrhea with recent history of Clostridium difficile colitis. The CAT scan did show some enteritis. on IV metronidazole and oral vancomycin.stool cx negative for c diff will d/c flagyl will d/w GI regarding vancomycin. will repeat c diff 2. Lower extremity edema? echo in 05/2017 unremarkable will cut back on fluids albumin borderline poor nutrition from chronic diarrhea? 3 Uncontrolled hypertension, seems to be paroxysmal. on Lopressor clonidine prn. will monitor. 4. Chest pain with palpitations. serial ce negative. ekg ok stable. 5. Severe chronic obstructive pulmonary disease with emphysematous change. stable. 6. Depression and anxiety. stable on home medication. 7. Chronic neck and back pain. on Percocet. Dilaudid prn. 8. Gastrointestinal prophylaxis with Protonix. 9. Deep venous thrombosis prophylaxis with Lovenox. 10. Code status. He will be a full code DISPOSITION monitor in medial floor pt/ot Vital Signs: Date Time Temp Pulse Resp B/P (MAP) Pulse Ox O2 Delivery O2 Flow Rate FiO2 09/02/17 16:00 100 Room Air 09/02/17 15:49 36.2 84 18 142/79 (100) 97 Room Air 09/02/17 14:40 88 18 92 Room Air 09/02/17 08:00 100 Room Air 09/02/17 07:50 36.4 74 20 135/88 (104) 100 Room Air 09/02/17 07:43 90 18 92 Room Air 09/02/17 00:20 Room Air 09/01/17 23:15 36.6 95 20 160/80 (106) 92 Room Air 09/01/17 20:01 88 18 91 Room Air 09/01/17 20:01 Room Air Lab Results: Results Past 24 Hours Test 09/02/17 05:50 Range/Units White Blood Count 6.85 4.8-10.8 K/uL Red Blood Count 3.31 4.7-6.1 M/uL Hemoglobin 8.1 14.0-18.0 g/dL Hematocrit 27.1 42-52 % Mean Corpuscular Volume 81.9 80-100 fL Mean Corpuscular Hemoglobin 24.5 25-34 pg Mean Corpuscular Hemoglobin Concent 29.9 32-36 g/dl Platelet Count 238 130-400 K/uL Mean Platelet Volume 8.3 7.4-10.4 fL Neutrophils (%) (Auto) 68.2 % Lymphocytes (%) (Auto) 20.7 % Monocytes (%) (Auto) 8.0 % Eosinophils (%) (Auto) 2.2 % Basophils (%) (Auto) 0.6 % Neutrophils # (Auto) 4.67 1.4-6.5 K/uL Lymphocytes # (Auto) 1.42 1.2-3.4 K/uL Monocytes # (Auto) 0.55 0.11-0.59 K/uL Eosinophils # (Auto) 0.15 0-0.5 K/uL Basophils # (Auto) 0.04 0-0.2 K/uL RDW Standard Deviation 51.5 36.4-46.3 fL RDW Coefficient of Variation 17.1 11.5-14.5 % Immature Granulocyte % (Auto) 0.3 % Immature Granulocyte # (Auto) 0.02 0.00-0.02 K/uL Hypochromasia PRESENT Sodium Level 136 136-145 mmol/L Potassium Level 4.4 3.5-5.1 mmol/L Chloride Level 105 98-107 mmol/L Carbon Dioxide Level 25 21-32 mmol/L Anion Gap 6.0 3-11 mmol/L Blood Urea Nitrogen 14 7-18 mg/dl Creatinine 0.61 0.60-1.40 mg/dl Est Creatinine Clear Calc Drug Dose 140.0 ml/min Estimated GFR () 123.2 Estimated GFR (Non- 106.3 BUN/Creatinine Ratio 23.1 10-20 Random Glucose 76 70-99 mg/dl Calcium Level 7.9 8.5-10.1 mg/dl Magnesium Level 1.7 1.8-2.4 mg/dl
[2017-09-02] MEDS: ZOLPIDEM TARTRATE 10 MG TAB PO PRN (22:03)
[2017-09-03] VITALS (8 sets, daily range): BP systolic 157–183; BP diastolic 93–103; PULSE 61–102; TEMP 36.3–36.6; O2SAT 92–99
[2017-09-03] MEDS: HYDROmorphone INJ 1 MG/ML SYR IV PRN ×7 (00:26→22:57)
[2017-09-03] MEDS: IPRATROPIUM BROMIDE NEB SOLN 0.02% 2.5 ML VIAL INH SCH ×4 (02:02→20:09)
[2017-09-03] MEDS: LEVALBUTEROL 0.63MG/3 ML NEB INH SCH ×4 (02:02→20:10)
[2017-09-03] MEDS: OXYCODONE/ACETAMINOPHEN 5-325 TAB PO PRN ×4 (02:45→17:11)
[2017-09-03 05:29] LABS: BASO % 0.3 %; BASO ABS # 0.02 K/uL (0-0.2); EOS % 3.3 %; EOS ABS # 0.21 K/uL (0-0.5); HEMATOCRIT 26.2 % (42-52); HEMOGLOBIN 7.9 g/dL (14.0-18.0); IG# 0.03 K/uL (0.00-0.02); LYMPH % 22.7 %; LYMPH ABS # 1.45 K/uL (1.2-3.4); MEAN CELL VOLUME 81.4 fL (80-100); MEAN CORPUSCULAR HEMOGLOBIN 24.5 pg (25-34); MEAN CORPUSCULAR HGB CONC 30.2 g/dl (32-36); MEAN PLATELET VOLUME 8.5 fL (7.4-10.4); MONO % 9.2 %; MONO ABS # 0.59 K/uL (0.11-0.59); NEUT ABS # 4.09 K/uL (1.4-6.5); PLATELET COUNT 236 K/uL (130-400); RED CELL DISTRIBUTION WIDTH SD 51.4 fL (36.4-46.3); WHITE BLOOD COUNT 6.39 K/uL (4.8-10.8)
[2017-09-03 05:52] LABS: CALCIUM 7.8 mg/dl (8.5-10.1); CREATININE 0.84 mg/dl (0.60-1.40)
[2017-09-03] MEDS: ALUMINUM/MAGNESIUM/SIMETH (MAALOX MAX) 30 ML UDC PO PRN ×2 (06:19→18:31)
[2017-09-03] MEDS: PANTOprazole SOD 40 MG TAB PO SCH (06:19)
[2017-09-03] MEDS: METOPROLOL SUCC 50MG EXT REL TAB PO SCH (06:54)
--- NOTE | 2017-09-03 08:11 | DIAGNOSTIC IMAGING REPORT ---
RENAL ULTRASOUND HISTORY: b/l flank pain COMPARISON: Abdomen and pelvis CT 08/31/2017. FINDINGS: Right kidney: 11.3 cm. No hydronephrosis. There is a 1 cm cyst within the interpolar region. Duplicated collecting system. Severe cortical thinning/scarring within the lower pole moiety. Left kidney: 13.1 cm. No hydronephrosis. Normal corticomedullary differentiation and cortical thickness. A 7.3 cm per pole cyst. Duplicated collecting system. Bladder: No bladder wall thickening. The bilateral ureteral jets were identified. IMPRESSION: 1. Bilateral duplicated collecting systems. No hydronephrosis. 2. Bilateral renal cysts. 3. Severe cortical thinning/scarring within the right lower pole moiety. Electronically signed by: Shaun Burns M.D. 09/03/2017 8:09 AM Dictated Date/Time: 09/03/2017 8:06 AM
[2017-09-03] MEDS: ASPIRIN 81 MG CHEW PO SCH (08:19)
[2017-09-03] MEDS: LACTOBACILLUS ACIDOPHILUS (FLORANEX) TAB PO SCH ×3 (08:19→16:28)
[2017-09-03] MEDS: PAROXETINE 20 MG TAB PO SCH (08:20)
[2017-09-03] MEDS: MAGNESIUM CHLORIDE 64MG DELAYED REL TAB PO SCH ×3 (08:20→19:16)
[2017-09-03] MEDS ORDERED: VANCOMYCIN HCL 125 MG/2.5ML SOLN PO SCH (10:00)
[2017-09-03] MEDS ORDERED: RASPBERRY SYRUP 5 ML UDP PO SCH (10:00)
[2017-09-03] MEDS ORDERED: NURSING VERBAL MED ORDER ONE ×4 (10:00→18:30)
[2017-09-03] MEDS: CHOLESTYRAMINE LIGHT 4 GM PKT PO SCH ×2 (10:00→22:04)
--- NOTE | 2017-09-03 10:57 | Gastroenterology Progress Note ---
Progress Note Date of Service: Sep 03, 2017 Subjective Pt evaluation today including: conversation w/ patient, physical exam, chart review, lab review, review of studies, review of inpatient medication list Mr. Cruz presented to the ED on 08/31/17 with c/o diarrhea, back pain, chest pain, palpitations. C-diff negative though he had been positive recently, on 06/25/17. Continues with diarrhea. Today, black liquid BM, hem positive stool and Hb decreased from 11.4 on arrival to 7.9. BUN normal today at 10. Additionally he c/o severe bilateral lower back pain. Maintained on Protonix 40mg daily also takes on ASA 81mg daily and denies any additional NSAID use. Review of Systems Constitutional: No fever Respiratory: No cough Cardiac: + see HPI, + chest pain (c/o chest pain and SOB when asked) Abdomen: + diarrhea, + GI bleeding (report melena today), No pain, No nausea, No vomiting Musculoskeletal: + joint pain (c/o lower back pain) Male : No dysuria Neuro: No memory loss Psych: No depression symptoms Heme: No abnormal bleeding/bruising Endo: No fatigue Skin: No rash Medications Current Inpatient Medications Medications (Trade) Dose Ordered Sig/Tyree Route Start Time Stop Time Status Last Admin Dose Admin Ioversol (Optiray 320) 111 ml UD PRN IV 08/31/17 11:15 09/04/17 11:14 Enoxaparin Sodium (Lovenox Inj) 40 mg DAILY@1800 SC 08/31/17 18:00 09/30/17 17:59 09/02/17 17:58 40 MG Ondansetron HCl (Zofran Inj) 4 mg Q6H PRN IV 08/31/17 15:45 09/30/17 15:44 09/02/17 03:14 4 MG Albuterol (Ventolin Hfa Inhaler) 2 puffs QID PRN INH 08/31/17 16:00 09/30/17 15:59 Aspirin (Aspirin Chew) 81 mg DAILY PO 09/01/17 09:00 10/01/17 08:59 09/03/17 08:19 81 MG Cholestyramine Resin (Questran Powder Light) 4 gm BID@10,22 PO 08/31/17 22:00 09/30/17 21:59 09/02/17 09:50 4 GM Ipratropium [place] (Atrovent 0.02% 0.5MG/2.5ML Neb) 0.5 mg Q6R INH 08/31/17 21:00 09/30/17 20:59 09/03/17 06:59 0.5 MG Levalbuterol (Xopenex 0.63 Mg/ 3 Ml Neb) 0.63 mg Q6R INH 08/31/17 21:00 09/30/17 20:59 09/03/17 06:59 0.63 MG Metoprolol Succinate (Toprol Xl Tab) 100 mg QAM PO 09/01/17 09:00 10/01/17 08:59 09/03/17 06:54 100 MG Oxycodone/ Acetaminophen (Percocet 5-325mg Tab) 1 tab Q4H PRN PO 08/31/17 16:00 09/14/17 15:59 09/03/17 10:27 1 TAB Pantoprazole Sodium (Protonix Tab) 40 mg QAM PO 09/01/17 09:00 10/01/17 08:59 09/03/17 06:19 40 MG Paroxetine HCl (pAXil TAB) 40 mg DAILY PO 09/01/17 09:00 10/01/17 08:59 09/03/17 08:20 40 MG Zolpidem Tartrate (Ambien Tab) 10 mg HS PRN PO 08/31/17 16:00 09/30/17 15:59 09/02/17 22:03 10 MG Clonidine HCl (Catapres Tab) 0.1 mg Q6H PRN PO 08/31/17 16:00 09/30/17 15:59 09/01/17 14:45 0.1 MG Lactobacillus Acidophilus (Floranex Tab) 4 tab TIDM PO 08/31/17 17:21 09/30/17 17:59 09/03/17 08:19 4 TAB Hydromorphone HCl (Dilaudid Inj) 0.5 mg Q4H PRN IV 08/31/17 18:30 09/14/17 18:29 09/03/17 08:53 0.5 MG Magnesium Chloride (Slow-Mag Tab) 64 mg BID PO 09/01/17 20:00 10/01/17 20:59 09/03/17 09:52 64 MG Al Hydrox/Mg Hydrox/Simethicone (Maalox Max Susp) 15 ml Q6H PRN PO 09/01/17 16:30 10/01/17 16:29 09/03/17 06:19 15 ML Sodium Chloride 1,000 ml @ 50 mls/hr Q20H IV 09/02/17 18:15 10/02/17 18:14 09/02/17 18:33 50 MLS/HR Vancomycin HCl (Vancomycin Oral Soln) 125 mg DAILY PO 09/03/17 10:00 09/17/17 09:59 Raspberry (Raspberry Syrup 5ml Cup) 5 ml DAILY PO 09/03/17 10:00 09/17/17 09:59 Objective Vital Signs Date Time Temp Pulse Resp B/P (MAP) Pulse Ox O2 Delivery O2 Flow Rate FiO2 09/03/17 08:00 99 Room Air 09/03/17 07:31 36.3 61 16 157/93 (114) 99 09/03/17 06:59 83 18 96 Room Air 09/03/17 06:51 102 183/99 (127) 09/03/17 00:56 Room Air 09/02/17 21:57 87 152/88 (109) 96 Room Air 09/02/17 20:10 Room Air 09/02/17 19:05 73 18 95 Room Air 09/02/17 16:00 100 Room Air 09/02/17 15:49 36.2 84 18 142/79 (100) 97 Room Air 09/02/17 14:40 88 18 92 Room Air Physical Exam General Appearance: no apparent distress ENT: pharynx normal Neck: thyroid normal, no JVD Respiratory/Chest: lungs clear Cardiovascular: regular rate, rhythm, no JVD, no murmur Abdomen: soft, + tenderness (epigastric tenderness) Extremities: non-tender Neurologic/Psych: alert, normal mood/affect, oriented x 3 Skin: no jaundice Laboratory Results Last 24 Hours Test 09/03/17 05:05 09/03/17 07:25 White Blood Count 6.39 K/uL Red Blood Count 3.22 M/uL Hemoglobin 7.9 g/dL Hematocrit 26.2 % Mean Corpuscular Volume 81.4 fL Mean Corpuscular Hemoglobin 24.5 pg Mean Corpuscular Hemoglobin Concent 30.2 g/dl Platelet Count 236 K/uL Mean Platelet Volume 8.5 fL Neutrophils (%) (Auto) 64.0 % Lymphocytes (%) (Auto) 22.7 % Monocytes (%) (Auto) 9.2 % Eosinophils (%) (Auto) 3.3 % Basophils (%) (Auto) 0.3 % Neutrophils # (Auto) 4.09 K/uL Lymphocytes # (Auto) 1.45 K/uL Monocytes # (Auto) 0.59 K/uL Eosinophils # (Auto) 0.21 K/uL Basophils # (Auto) 0.02 K/uL RDW Standard Deviation 51.4 fL RDW Coefficient of Variation 17.0 % Immature Granulocyte % (Auto) 0.5 % Immature Granulocyte # (Auto) 0.03 K/uL Hypochromasia PRESENT Sodium Level 137 mmol/L Potassium Level 4.0 mmol/L Chloride Level 104 mmol/L Carbon Dioxide Level 25 mmol/L Anion Gap 8.0 mmol/L Blood Urea Nitrogen 10 mg/dl Creatinine 0.84 mg/dl Est Creatinine Clear Calc Drug Dose 101.7 ml/min Estimated GFR () 108.0 Estimated GFR (Non- 93.2 BUN/Creatinine Ratio 12.5 Random Glucose 82 mg/dl Calcium Level 7.8 mg/dl Magnesium Level 1.7 mg/dl Stool Occult Blood POSITIVE Assessment and Plan Mr. Cruz is a 61 yr old male with 1. Chronic Diarrhea with hx of recent C-diff, but current testing (-). 2. Anemia, decreasing Hb, occult positive stool and report of melena. He has a hx of esophagitis on EGD in Jul 2016 and carries a hx of Joyce's esophagitis. Current melena and decreasing Hb levels may represent esophagitis or gastric/ duodenal ulcer disease. Plan: 1. For diarrhea, would add Imodium BID (pt is refusing cholestyramine). 2. For hx of C-diff would continue daily Vanco 125mg for a week, then every other day for a month. 3. For anemia, melena, occult (+) stool, will plan for EGD tomorrow. ATTESTATION: I have performed a history and physical examination of this patient and reviewed the electronic record. Specifically, on physical examination there is mild epigastric tenderness. I have discussed the case with ROSSY Nava. The above note reflects my findings, conclusions, and recommendations. Timmy Medina MD
[2017-09-03] MEDS: VANCOMYCIN HCL 125 MG CAP PO SCH (10:58)
[2017-09-03 16:11] LABS: HEMATOCRIT 27.3 % (42-52); HEMOGLOBIN 8.2 g/dL (14.0-18.0)
--- NOTE | 2017-09-03 16:40 | Progress Note ---
Internal Med Progress Note Date of Service: Sep 03, 2017. Provider Documentation: SUBJECTIVE: had a large melena today complains of back pain and flank shania and request to increase pain meds no nausea still has diarrhea hemodynamics stable OBJECTIVE: Vital Signs-as noted below Exam: General-alert and oriented. Not in distress ENT-Normal hearing Neck-no neck masses supple Lungs-cta b/l no crackles present no wheezing present Heart-S1 and S2 heard regular rate and rthym, no murmurs Abdomen-Soft bowel sounds present non tender distended Extremities-pedal edema present no erythema Neuro-alert and awake moves extremities Lab data as noted below. ASSESSMENT & PLAN: 61 m with hx of chronic diarrhea, hx of c diff, chronic pain presented with abdominal pain and elevated BP.C diff negative.BP ok now.Today had melena and hb dropped. on PPI drip . Plan for EGD in am. Monitor h and h. 1. Chronic diarrhea with recent history of Clostridium difficile colitis. The CAT scan did show some enteritis. on IV metronidazole and oral vancomycin.stool cx negative for c diff will d/c flagyl will d/w GI regarding vancomycin. c diff negative twice gi recommends po vancomycin daily for one week and then every other day for one month. Anemia Melena hx of oesophagitis and gastric ulcer hb 7.9 in am and repeat in evening 8.2 blood consent obtained ppi drip plan for egd in am. Lower extremity edema? echo in 05/2017 unremarkable will cut back on fluids albumin borderline renal us -duplicate collecting system but no hydronephrosis poor nutrition from chronic diarrhea? Uncontrolled hypertension, seems to be paroxysmal. on Lopressor clonidine prn. will monitor. Chest pain with palpitations. serial ce negative. ekg ok stable. Severe chronic obstructive pulmonary disease with emphysematous change. stable. Depression and anxiety. stable on home medication. Chronic neck and back pain. on Percocet. Dilaudid prn. Gastrointestinal prophylaxis with Protonix. Deep venous thrombosis prophylaxis scds Code status. full code DISPOSITION monitor in [facility] floor pt/ot to be determined Vital Signs: Date Time Temp Pulse Resp B/P (MAP) Pulse Ox O2 Delivery O2 Flow Rate FiO2 09/03/17 16:00 99 Room Air 09/03/17 15:20 36.5 85 18 169/99 (122) 95 Room Air 09/03/17 14:10 86 18 92 Room Air 09/03/17 08:00 99 Room Air 09/03/17 07:31 36.3 61 16 157/93 (114) 99 09/03/17 06:59 83 18 96 Room Air 09/03/17 06:51 102 183/99 (127) 09/03/17 00:56 Room Air 09/02/17 21:57 87 152/88 (109) 96 Room Air 09/02/17 20:10 Room Air 09/02/17 19:05 73 18 95 Room Air Lab Results: Results Past 24 Hours Test 09/03/17 05:05 09/03/17 07:25 09/03/17 15:54 Range/Units White Blood Count 6.39 4.8-10.8 K/uL Red Blood Count 3.22 4.7-6.1 M/uL Hemoglobin 7.9 8.2 14.0-18.0 g/dL Hematocrit 26.2 27.3 42-52 % Mean Corpuscular Volume 81.4 80-100 fL Mean Corpuscular Hemoglobin 24.5 25-34 pg Mean Corpuscular Hemoglobin Concent 30.2 32-36 g/dl Platelet Count 236 130-400 K/uL Mean Platelet Volume 8.5 7.4-10.4 fL Neutrophils (%) (Auto) 64.0 % Lymphocytes (%) (Auto) 22.7 % Monocytes (%) (Auto) 9.2 % Eosinophils (%) (Auto) 3.3 % Basophils (%) (Auto) 0.3 % Neutrophils # (Auto) 4.09 1.4-6.5 K/uL Lymphocytes # (Auto) 1.45 1.2-3.4 K/uL Monocytes # (Auto) 0.59 0.11-0.59 K/uL Eosinophils # (Auto) 0.21 0-0.5 K/uL Basophils # (Auto) 0.02 0-0.2 K/uL RDW Standard Deviation 51.4 36.4-46.3 fL RDW Coefficient of Variation 17.0 11.5-14.5 % Immature Granulocyte % (Auto) 0.5 % Immature Granulocyte # (Auto) 0.03 0.00-0.02 K/uL Hypochromasia PRESENT Sodium Level 137 136-145 mmol/L Potassium Level 4.0 3.5-5.1 mmol/L Chloride Level 104 98-107 mmol/L Carbon Dioxide Level 25 21-32 mmol/L Anion Gap 8.0 3-11 mmol/L Blood Urea Nitrogen 10 7-18 mg/dl Creatinine 0.84 0.60-1.40 mg/dl Est Creatinine Clear Calc Drug Dose 101.7 ml/min Estimated GFR () 108.0 Estimated GFR (Non- 93.2 BUN/Creatinine Ratio 12.5 10-20 Random Glucose 82 70-99 mg/dl Calcium Level 7.8 8.5-10.1 mg/dl Magnesium Level 1.7 1.8-2.4 mg/dl Stool Occult Blood POSITIVE NEGATIVE Microbiology Results 09/03/17 C.difficile Toxin B Gene (PCR) - Final, Complete No C. difficile toxin B gene detected
[2017-09-03] MEDS ORDERED: PANTOprazole INJ 80 MG in DEXTROSE 5% 100ML IV ONE (17:00)
[2017-09-03] MEDS: PANTOprazole INJ 40 MG in DEXTROSE 5% 100ML IV SCH ×2 (17:25→22:08)
[2017-09-03] MEDS ORDERED: LOPERAMIDE HCL 2 MG CAP PO PRN (18:15)
[2017-09-03] MEDS: ZOLPIDEM TARTRATE 10 MG TAB PO PRN (22:58)
[2017-09-04] VITALS (8 sets, daily range): BP systolic 121–165; BP diastolic 69–93; PULSE 74–98; TEMP 36.3–36.8; O2SAT 90–99
[2017-09-04] MEDS ORDERED: CLONIDINE HCL 0.1 MG TAB PO PRN (00:15)
[2017-09-04] MEDS: OXYCODONE/ACETAMINOPHEN 5-325 TAB PO PRN ×4 (00:25→20:13)
[2017-09-04] MEDS: IPRATROPIUM BROMIDE NEB SOLN 0.02% 2.5 ML VIAL INH SCH ×4 (01:42→19:49)
[2017-09-04] MEDS: LEVALBUTEROL 0.63MG/3 ML NEB INH SCH ×4 (01:42→19:49)
[2017-09-04] MEDS: PANTOprazole INJ 40 MG in DEXTROSE 5% 100ML IV SCH ×4 (03:09→18:42)
[2017-09-04 05:47] LABS: BASO % 0.5 %; BASO ABS # 0.03 K/uL (0-0.2); EOS % 3.7 %; EOS ABS # 0.21 K/uL (0-0.5); HEMATOCRIT 25.2 % (42-52); HEMOGLOBIN 7.6 g/dL (14.0-18.0); IG# 0.03 K/uL (0.00-0.02); LYMPH % 24.9 %; MEAN CORPUSCULAR HEMOGLOBIN 24.4 pg (25-34); MEAN CORPUSCULAR HGB CONC 30.2 g/dl (32-36); MEAN PLATELET VOLUME 8.1 fL (7.4-10.4); MONO ABS # 0.56 K/uL (0.11-0.59); NEUT % 60.4 %; NEUT ABS # 3.39 K/uL (1.4-6.5); PLATELET COUNT 171 K/uL (130-400); RED CELL DISTRIBUTION WIDTH CV 17.2 % (11.5-14.5); RED CELL DISTRIBUTION WIDTH SD 50.8 fL (36.4-46.3); WHITE BLOOD COUNT 5.62 K/uL (4.8-10.8)
[2017-09-04 06:19] LABS: CALCIUM 8.2 mg/dl (8.5-10.1); CREATININE 0.84 mg/dl (0.60-1.40); POTASSIUM 4.1 mmol/L (3.5-5.1)
[2017-09-04] MEDS: MAGNESIUM CHLORIDE 64MG DELAYED REL TAB PO SCH ×2 (08:00→20:48)
[2017-09-04] MEDS: LACTOBACILLUS ACIDOPHILUS (FLORANEX) TAB PO SCH ×3 (08:00→17:36)
[2017-09-04] MEDS ORDERED: ATROPINE SULFATE 0.1 MG/ML 5ML SYR IV PRN (09:15)
[2017-09-04] MEDS ORDERED: EpHEDrine SULFATE INJ 50 MG/ML AMP IV PRN (09:15)
--- NOTE | 2017-09-04 09:19 | Endo History and Physical ---
History & Physical Date of Service: Sep 04, 2017. Chief Complaint: Melena Referring Physician: Dr. Abernathy History of Present Illness Inpatient with melena, anemia. History of esophagitis. Past Medical History Cancer, Hypertension, COPD, Depression Past Surgical History Hx Cardiac Surgery: No Hx Internal Defibrillator: No Hx Pacemaker: No Hx Abdominal Surgery: No Hx Post-Op Nausea and Vomiting: No Hx Cancer Surgery: No Hx Thoracic Surgery: No Hx Orthopedic: No Hx Urinary Tract Surgery: No Social History Smoking Status: Current Some Day Smoker Hx Substance Use: No Hx Alcohol Use: No (rarely ) Allergies Coded Allergies: Shellfish (Verified Allergy, Severe, SOB & SWOLLEN GLANDS FROM SHELLFISH, 07/16/17) Onion (Verified Allergy, Unknown, RASH AND GI UPSET, 07/16/17) Captopril (Verified Adverse Reaction, Intermediate, "felt bad", 07/16/17) Codeine (Verified Adverse Reaction, Unknown, nausea; nightmares, 07/16/17) Current Medications Reported Home Medications Medications Dose Route/Sig Max Daily Dose Days Date Category Dose Instructions Vancomycin (Vancomycin HCl) 125 Mg Cap 125 Mg PO DIRECTED 08/31/17 Reported CURRENTLY ON DAY 7. TOMORROW STARTS 1 CAP EVERY OTHER DAY Cholestyramine Light (Cholestyramine) 4 Gm Pack 4 Gm PO BID@ 15 08/01/17 Rx Levalbuterol HCl (Levalbuterol) 0.63 Mg/3 Ml Nebu 0.63 Mg INH Q6R 7 08/01/17 Rx Ipratropium [place] 0.5 Mg/2.5 Ml Nebu 0.5 Mg INH Q6R 7 08/01/17 Rx Percocet 5MG/325MG (Oxycodone/Acetaminophen) Tab 1 Tabs PO Q4-6H PRN 06/29/17 Rx Breo Ellipta (Fluticasone Furoate-Vilanterol) 1 Inh Inh 1 Puff INH DAILY 06/24/17 Reported Aspirin 81 Low Dose (Aspirin) 81 Mg Chw 1 Tab PO DAILY 06/24/17 Reported Ventolin Hfa (Albuterol) 200 Puffs/51305 Mcg Aers 2 Puffs INH QID PRN 01/31/17 Reported Oxygen Gas 3 Liters NA HS 09/12/16 Reported Protonix (Pantoprazole Sodium) 40 Mg Tab 40 Mg PO QAM 09/12/16 Reported Toprol-Xl (Metoprolol Succinate) 100 Mg Tabcr 100 Mg PO QAM 09/17/15 Reported Ambien (Zolpidem Tartrate) 10 Mg Tab 10 Mg PO HS PRN 09/17/15 Reported Vital Signs Weight (Kilograms): 87.000 Height (Feet): 6 Height (Inches): 1.00 Date Time Temp Pulse Resp B/P (MAP) Pulse Ox O2 Delivery O2 Flow Rate FiO2 09/04/17 08:40 36.5 84 20 168/108 (128) 93 Room Air 09/04/17 07:13 36.6 90 16 121/69 (86) 90 Room Air 09/04/17 07:10 98 18 92 Room Air 09/04/17 00:00 99 Room Air 09/03/17 23:39 36.6 94 20 181/103 (129) 92 Room Air 09/03/17 20:00 Room Air 09/03/17 16:00 99 Room Air 09/03/17 15:20 36.5 85 18 169/99 (122) 95 Room Air 09/03/17 14:10 86 18 92 Room Air Physical Exam General Appearance: WD/WN, no apparent distress Respiratory/Chest: Auscultation: breath sounds normal, no wheezing Cardiovascular: Heart Auscultation: RRR, no murmurs Assessment and Plan EGD today
[2017-09-04] MEDS ORDERED: LIDOCAINE HCL 2% 2 ML VIAL (20MG/ML) ONE ×2 (09:21→09:40)
[2017-09-04] MEDS ORDERED: PROPOFOL IV EMULSION 10 MG/ML 20 ML VIAL IV ONE (09:21)
[2017-09-04] MEDS ORDERED: FENTANYL CITRATE INJ 50 MCG/1 ML 2 ML VIAL ONE (09:21)
--- NOTE | 2017-09-04 09:44 | GI REPORT ---
Procedure Date: 09/04/2017 9:13 AM Procedure: Upper GI endoscopy Indications: Melena Medicines: Monitored Anesthesia Care Complications: No immediate complications. Estimated blood loss: None. Estimated Blood Loss: Estimated blood loss: none. Procedure: Pre-Anesthesia Assessment: - Prior to the procedure, a History and Physical was performed, and patient medications, allergies and sensitivities were reviewed. The patient's tolerance of previous anesthesia was reviewed. - ASA Grade Assessment: III - A patient with severe systemic disease. After obtaining informed consent, the endoscope was passed under direct vision. Throughout the procedure, the patient's blood pressure, pulse, and oxygen saturations were monitored continuously. The scope was introduced through the mouth, and advanced to the third part of duodenum. The upper GI endoscopy was accomplished with ease. The patient tolerated the procedure well. Findings: The esophagus and gastroesophageal junction were examined with white light and narrow band imaging (NBI) from a forward view and retroflexed position. There were esophageal mucosal changes secondary to established long-segment Joyce's disease. These changes involved the mucosa at the upper extent of the gastric folds (37 cm from the incisors) extending to the Z-line (31 cm from the incisors). Tongues of salmon-colored mucosa were present and ulcerations were present. The maximum longitudinal extent of these esophageal mucosal changes was 7 cm in length. Mucosa was biopsied with a cold forceps for histology. One specimen bottle was sent to pathology. A medium-sized hiatal hernia was present. One non-bleeding superficial Pratik gastric ulcer with no stigmata of bleeding was found in the gastric body. Moderate inflammation characterized by erosions and erythema was found in the entire examined stomach. Biopsies were taken with a cold forceps for Helicobacter pylori testing. A small amount of food (residue) was found in the gastric body. The examined duodenum was normal. Verification of patient identification for the specimens was done by the physician and nurse using the patient's name, date and medical record number. Impression: - Esophageal mucosal changes secondary to established long-segment Joyce's disease. Biopsied. - Medium-sized hiatal hernia. - Non-bleeding Pratik ulcer with no stigmata of bleeding. - Gastritis. Biopsied. - A small amount of food (residue) in the stomach. - Normal examined duodenum. - No blood or clots present. Recommendation: - Return patient to [facility] for [facility] care. Timmy Medina M.D. Timmy Medina MD 09/04/2017 9:43:35 AM This report has been signed electronically. Note Initiated On: 09/04/2017 9:13 AM I attest to the content of the Intraoperative Record and orders documented therein, exceptions below
[2017-09-04] MEDS: HYDROmorphone INJ 1 MG/ML SYR IV PRN ×4 (10:30→22:44)
[2017-09-04] MEDS: ASPIRIN 81 MG CHEW PO SCH (10:32)
[2017-09-04] MEDS: PAROXETINE 20 MG TAB PO SCH (10:36)
[2017-09-04] MEDS: METOPROLOL SUCC 50MG EXT REL TAB PO SCH (10:36)
[2017-09-04] MEDS: VANCOMYCIN HCL 125 MG CAP PO SCH (10:37)
--- NOTE | 2017-09-04 11:14 | Anesthesiology Progress Note ---
Anesthesia Post Op Note Date & Time Sep 04, 2017 at 11:14 Vital Signs Pain Intensity: 8.0 Vital Signs Past 12 Hours Date Time Temp Pulse Resp B/P (MAP) Pulse Ox O2 Delivery O2 Flow Rate FiO2 09/04/17 10:30 94 14 160/85 (110) 95 Room Air 09/04/17 10:13 82 18 152/90 (110) 96 Room Air 09/04/17 09:58 72 18 156/85 (108) 93 Room Air 09/04/17 09:43 84 14 127/79 (95) 94 Room Air 09/04/17 08:40 36.5 84 20 168/108 (128) 93 Room Air 09/04/17 08:00 Room Air 09/04/17 07:13 36.6 90 16 121/69 (86) 90 Room Air 09/04/17 07:10 98 18 92 Room Air 09/04/17 00:00 99 Room Air 09/03/17 23:39 36.6 94 20 181/103 (129) 92 Room Air Notes Mental Status: alert / awake / arousable, participated in evaluation Pt Amnestic to Procedure: Yes Nausea / Vomiting: adequately controlled Pain: adequately controlled Airway Patency, RR, SpO2: stable & adequate BP & HR: stable & adequate Hydration State: stable & adequate Anesthetic Complications: no major complications apparent
[2017-09-04 12:35] LABS: HEMATOCRIT 25.9 % (42-52); HEMOGLOBIN 7.8 g/dL (14.0-18.0)
[2017-09-04] MEDS: CHOLESTYRAMINE LIGHT 4 GM PKT PO SCH ×2 (14:32→22:00)
--- NOTE | 2017-09-04 15:53 | Progress Note ---
Medicine Progress Note Date & Time of Visit: Sep 04, 2017 at 15:53 . Subjective CC: Follow-up visit for anemia. HPI: EGD went well today. Has some epigastric discomfort. Stools loose, not as dark. Tires easily with ambulation. Complains of severe itching from rash on back and extremities. ROS: General- no fever, no chills Resp- no cough; + dyspnea on exertion Cardiac- no chest pain, no edema GI- as noted above in HPI - no dysuria . Objective Last 8 Hrs Date Time Temp Pulse Resp B/P (MAP) Pulse Ox O2 Delivery O2 Flow Rate FiO2 09/04/17 15:06 36.3 75 16 165/93 (117) 92 Room Air 09/04/17 13:50 74 18 92 Room Air 09/04/17 10:30 94 14 160/85 (110) 95 Room Air 09/04/17 10:13 82 18 152/90 (110) 96 Room Air 09/04/17 09:58 72 18 156/85 (108) 93 Room Air 09/04/17 09:43 84 14 127/79 (95) 94 Room Air 09/04/17 08:40 36.5 84 20 168/108 (128) 93 Room Air 09/04/17 08:00 Room Air Physical Exam: General- no acute distress Eyes- anicteric Neck- no JVD Lungs- clear; no resp distress Cardiovascular- RRR, no murmur or gallop; 1+ pretibial edema Abdomen- + BS, soft, nontender Extremities- no cyanosis; mild calf tenderness Neuro- alert,oriented Skin- multiple excoriated lesions . Laboratory Results: Last 24 Hours Test 09/03/17 15:54 09/04/17 05:34 09/04/17 12:16 Hemoglobin 8.2 g/dL 7.6 g/dL 7.8 g/dL Hematocrit 27.3 % 25.2 % 25.9 % White Blood Count 5.62 K/uL Red Blood Count 3.11 M/uL Mean Corpuscular Volume 81.0 fL Mean Corpuscular Hemoglobin 24.4 pg Mean Corpuscular Hemoglobin Concent 30.2 g/dl Platelet Count 171 K/uL Mean Platelet Volume 8.1 fL Neutrophils (%) (Auto) 60.4 % Lymphocytes (%) (Auto) 24.9 % Monocytes (%) (Auto) 10.0 % Eosinophils (%) (Auto) 3.7 % Basophils (%) (Auto) 0.5 % Neutrophils # (Auto) 3.39 K/uL Lymphocytes # (Auto) 1.40 K/uL Monocytes # (Auto) 0.56 K/uL Eosinophils # (Auto) 0.21 K/uL Basophils # (Auto) 0.03 K/uL RDW Standard Deviation 50.8 fL RDW Coefficient of Variation 17.2 % Immature Granulocyte % (Auto) 0.5 % Immature Granulocyte # (Auto) 0.03 K/uL Hypochromasia PRESENT Sodium Level 135 mmol/L Potassium Level 4.1 mmol/L Chloride Level 102 mmol/L Carbon Dioxide Level 29 mmol/L Anion Gap 4.0 mmol/L Blood Urea Nitrogen 8 mg/dl Creatinine 0.84 mg/dl Est Creatinine Clear Calc Drug Dose 101.7 ml/min Estimated GFR () 108.0 Estimated GFR (Non- 93.2 BUN/Creatinine Ratio 9.9 Random Glucose 81 mg/dl Calcium Level 8.2 mg/dl Magnesium Level 1.9 mg/dl Assessment & Plan GI BLEED / ACUTE BLOOD LOSS ANEMIA Patient presented with melena. Stools were heme positive. Hgb 11.4 --> --> 7.6. EGD today demonstrated Joyce's esophagus, hiatal hernia, gastritis, nonbleeding Pratik gastric ulcer. Hgb this morning 7.6, repeat 7.8. Patient is experiencing fatigue and dyspnea with ambulation. Would be reasonable to transfuse at this time, but patient prefers waiting and rechecking H/H tomorrow. Transition PPI from parenteral to oral. LOWER EXTREMITY EDEMA Probably secondary to IV fluids. Had echo May 2017- no need to repeat at this time. IV furosemide today. Follow. HYPERTENSION Continue metoprolol. COPD Pulmonary status stable. RECENT DIFF COLITIS Continue vancomycin taper. RASH Pruritic rash with excoriations. Diphenhydramine PRN. Discuss with Derm. VTE PROPHYLAXIS SCD's ordered. Ambulate. DISPOSITION Expected discharge to home. Family Medicine follow-up with Dr. Monroy. . Current Inpatient Medications: Current Inpatient Medications Medications (Trade) Dose Ordered Sig/Tyree Route Start Time Stop Time Status Last Admin Dose Admin Ondansetron HCl (Zofran Inj) 4 mg Q6H PRN IV 08/31/17 15:45 09/30/17 15:44 09/02/17 03:14 4 MG Albuterol (Ventolin Hfa Inhaler) 2 puffs QID PRN INH 08/31/17 16:00 09/30/17 15:59 Aspirin (Aspirin Chew) 81 mg DAILY PO 09/01/17 09:00 10/01/17 08:59 09/04/17 10:32 81 MG Cholestyramine Resin (Questran Powder Light) 4 gm BID@ PO 08/31/17 22:00 09/30/17 21:59 09/04/17 14:32 4 GM Ipratropium [place] (Atrovent 0.02% 0.5MG/2.5ML Neb) 0.5 mg Q6R INH 08/31/17 21:00 09/30/17 20:59 09/04/17 13:50 0.5 MG Levalbuterol (Xopenex 0.63 Mg/ 3 Ml Neb) 0.63 mg Q6R INH 08/31/17 21:00 09/30/17 20:59 09/04/17 13:50 0.63 MG Metoprolol Succinate (Toprol Xl Tab) 100 mg QAM PO 09/01/17 09:00 10/01/17 08:59 09/04/17 10:36 100 MG Oxycodone/ Acetaminophen (Percocet 5-325mg Tab) 1 tab Q4H PRN PO 08/31/17 16:00 09/14/17 15:59 09/04/17 11:42 1 TAB Pantoprazole Sodium (Protonix Tab) 40 mg QAM PO 09/01/17 09:00 10/01/17 08:59 Future Hold 09/03/17 06:19 40 MG Paroxetine HCl (pAXil TAB) 40 mg DAILY PO 09/01/17 09:00 10/01/17 08:59 09/04/17 10:36 40 MG Zolpidem Tartrate (Ambien Tab) 10 mg HS PRN PO 08/31/17 16:00 09/30/17 15:59 09/03/17 22:58 10 MG Lactobacillus Acidophilus (Floranex Tab) 4 tab TIDM PO 08/31/17 17:21 09/30/17 17:59 09/04/17 11:42 4 TAB Magnesium Chloride (Slow-Mag Tab) 64 mg BID PO 09/01/17 20:00 10/01/17 20:59 09/03/17 19:16 64 MG Al Hydrox/Mg Hydrox/Simethicone (Maalox Max Susp) 15 ml Q6H PRN PO 09/01/17 16:30 10/01/17 16:29 09/03/17 18:31 15 ML Hydromorphone HCl (Dilaudid Inj) 1 mg Q4H PRN IV 09/03/17 11:00 09/14/17 18:29 09/04/17 14:31 1 MG Vancomycin HCl (VANCOCIN HCl) 125 mg DAILY@0900 PO 09/03/17 11:00 09/13/17 10:59 09/04/17 10:37 125 MG Pantoprazole Sodium 40 mg/ Dextrose 100 ml @ 20 mls/hr Q5H IV 09/03/17 17:15 10/03/17 17:14 09/04/17 14:38 20 MLS/HR Clonidine HCl (Catapres Tab) 0.1 mg Q6H PRN PO 09/04/17 00:15 10/04/17 00:14 09/04/17 00:25 0.1 MG
[2017-09-04] MEDS ORDERED: FUROSEMIDE INJ 40 MG in SYRINGE 0 ML IV ONE (17:00)
[2017-09-04] MEDS ORDERED: POTASSIUM CHLORIDE 20 MEQ TABCR PO ONE (17:00)
[2017-09-04] MEDS: ALUMINUM/MAGNESIUM/SIMETH (MAALOX MAX) 30 ML UDC PO PRN (20:12)
[2017-09-04] MEDS: ZOLPIDEM TARTRATE 10 MG TAB PO PRN (22:32)
[2017-09-05] MEDS: LEVALBUTEROL 0.63MG/3 ML NEB INH SCH ×4 (01:50→19:31)
[2017-09-05] MEDS: IPRATROPIUM BROMIDE NEB SOLN 0.02% 2.5 ML VIAL INH SCH ×4 (01:50→19:30)
[2017-09-05] MEDS: OXYCODONE/ACETAMINOPHEN 5-325 TAB PO PRN ×5 (02:22→19:16)
[2017-09-05] MEDS: HYDROmorphone INJ 1 MG/ML SYR IV PRN ×5 (04:52→20:56)
[2017-09-05 06:38] LABS: HEMATOCRIT 26.1 % (42-52); HEMOGLOBIN 7.9 g/dL (14.0-18.0)
[2017-09-05 06:53] VITALS: PULSE 82; O2SAT 92
[2017-09-05 07:12] VITALS: BP 152/73; PULSE 87; TEMP 36.3; O2SAT 100
[2017-09-05 07:15] LABS: CALCIUM 8.2 mg/dl (8.5-10.1); CREATININE 0.98 mg/dl (0.60-1.40); POTASSIUM 3.9 mmol/L (3.5-5.1)
[2017-09-05] MEDS: LACTOBACILLUS ACIDOPHILUS (FLORANEX) TAB PO SCH ×3 (07:37→16:59)
[2017-09-05] MEDS: ALUMINUM/MAGNESIUM/SIMETH (MAALOX MAX) 30 ML UDC PO PRN ×2 (07:38→17:42)
[2017-09-05] MEDS: PANTOprazole SOD 40 MG TAB PO SCH ×2 (07:38→20:18)
[2017-09-05] MEDS: MAGNESIUM CHLORIDE 64MG DELAYED REL TAB PO SCH ×2 (07:38→20:18)
[2017-09-05] MEDS: METOPROLOL SUCC 50MG EXT REL TAB PO SCH (07:38)
[2017-09-05] MEDS: PAROXETINE 20 MG TAB PO SCH (07:38)
[2017-09-05] MEDS: VANCOMYCIN HCL 125 MG CAP PO SCH (07:44)
[2017-09-05] MEDS: CHOLESTYRAMINE LIGHT 4 GM PKT PO SCH ×2 (11:00→20:18)
[2017-09-05 14:15] VITALS: PULSE 85; O2SAT 92
[2017-09-05 15:10] VITALS: BP 147/89; PULSE 77; TEMP 36.2; O2SAT 90
[2017-09-05 19:34] VITALS: PULSE 82; O2SAT 93
--- NOTE | 2017-09-05 20:46 | Progress Note ---
Medicine Progress Note Date & Time of Visit: Sep 05, 2017 at ~ 18:00 . Subjective CC: Follow-up visit for GI bleed. HPI: Still has epigastric discomfort. No nausea or vomiting. Dark stool today. Persistent dependent edema. Persistent rash. ROS: General- no fever, no chills Resp- + dyspnea on exertion; no cough Cardiac- no chest pain, no edema GI- as noted above in HPI - no dysuria, no difficulty voiding . Objective Last 8 Hrs Date Time Temp Pulse Resp B/P (MAP) Pulse Ox O2 Delivery O2 Flow Rate FiO2 09/05/17 19:34 82 18 93 Room Air 09/05/17 16:00 Room Air 09/05/17 15:10 36.2 77 18 147/89 (108) 90 Room Air 09/05/17 14:15 85 18 92 Room Air Physical Exam: General- sitting in chair; no acute distress Eyes- anicteric Neck- no JVD Lungs- clear; no respiratory distress Cardiovascular- RRR, no murmur or gallop; 1+ pretibial edema Abdomen- + BS, soft, nontender Extremities- no cyanosis; no calf tenderness Neuro- alert,oriented Skin- multiple excoriated lesions . Laboratory Results: Last 24 Hours Test 09/05/17 06:15 Hemoglobin 7.9 g/dL Hematocrit 26.1 % Sodium Level 137 mmol/L Potassium Level 3.9 mmol/L Chloride Level 100 mmol/L Carbon Dioxide Level 30 mmol/L Anion Gap 7.0 mmol/L Blood Urea Nitrogen 10 mg/dl Creatinine 0.98 mg/dl Est Creatinine Clear Calc Drug Dose 87.2 ml/min Estimated GFR () 94.7 Estimated GFR (Non- 81.7 BUN/Creatinine Ratio 10.2 Random Glucose 97 mg/dl Calcium Level 8.2 mg/dl Assessment & Plan GI BLEED / ACUTE BLOOD LOSS ANEMIA Patient presented with melena. Stools were heme positive. Hgb 11.4 --> --> 7.6. 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 Hgb this morning 7.9. Patient is experiencing fatigue and dyspnea with ambulation. Would be reasonable to transfuse at this time, but patient would like to wait until tomorrow. Transitioned PPI from parenteral to oral. LOWER EXTREMITY EDEMA Probably secondary to IV fluids. Had echo May 2017- no need to repeat at this time. IV furosemide last evening. Follow. HYPERTENSION Continue metoprolol. COPD Pulmonary status stable. RECENT DIFF COLITIS Continue vancomycin taper. RASH Pruritic rash with excoriations. Diphenhydramine PRN. Outpatient Derm appt arranged. VTE PROPHYLAXIS SCD's ordered. Ambulate. DISPOSITION Expected discharge to home. Family Medicine follow-up with Dr. Monroy. . Current Inpatient Medications: Current Inpatient Medications Medications (Trade) Dose Ordered Sig/Tyree Route Start Time Stop Time Status Last Admin Dose Admin Ondansetron HCl (Zofran Inj) 4 mg Q6H PRN IV 08/31/17 15:45 09/30/17 15:44 09/02/17 03:14 4 MG Albuterol (Ventolin Hfa Inhaler) 2 puffs QID PRN INH 08/31/17 16:00 09/30/17 15:59 Cholestyramine Resin (Questran Powder Light) 4 gm BID@ PO 08/31/17 22:00 09/30/17 21:59 09/04/17 14:32 4 GM Ipratropium [place] (Atrovent 0.02% 0.5MG/2.5ML Neb) 0.5 mg Q6R INH 08/31/17 21:00 09/30/17 20:59 09/05/17 19:30 0.5 MG Levalbuterol (Xopenex 0.63 Mg/ 3 Ml Neb) 0.63 mg Q6R INH 08/31/17 21:00 09/30/17 20:59 09/05/17 19:31 0.63 MG Metoprolol Succinate (Toprol Xl Tab) 100 mg QAM PO 09/01/17 09:00 10/01/17 08:59 09/05/17 07:38 100 MG Oxycodone/ Acetaminophen (Percocet 5-325mg Tab) 1 tab Q4H PRN PO 08/31/17 16:00 09/14/17 15:59 09/05/17 19:16 1 TAB Pantoprazole Sodium (Protonix Tab) 40 mg QAM PO 09/01/17 09:00 10/01/17 08:59 Future Hold 09/03/17 06:19 40 MG Paroxetine HCl (pAXil TAB) 40 mg DAILY PO 09/01/17 09:00 10/01/17 08:59 09/05/17 07:38 40 MG Zolpidem Tartrate (Ambien Tab) 10 mg HS PRN PO 08/31/17 16:00 09/30/17 15:59 09/04/17 22:32 10 MG Lactobacillus Acidophilus (Floranex Tab) 4 tab TIDM PO 08/31/17 17:21 09/30/17 17:59 09/05/17 16:59 4 TAB Magnesium Chloride (Slow-Mag Tab) 64 mg BID PO 09/01/17 20:00 10/01/17 20:59 09/05/17 20:18 64 MG Al Hydrox/Mg Hydrox/Simethicone (Maalox Max Susp) 15 ml Q6H PRN PO 09/01/17 16:30 10/01/17 16:29 09/05/17 17:42 15 ML Hydromorphone HCl (Dilaudid Inj) 1 mg Q4H PRN IV 09/03/17 11:00 09/14/17 18:29 09/05/17 16:53 1 MG Vancomycin HCl (VANCOCIN HCl) 125 mg DAILY@0900 PO 09/03/17 11:00 09/13/17 10:59 09/05/17 07:44 125 MG Clonidine HCl (Catapres Tab) 0.1 mg Q6H PRN PO 09/04/17 00:15 10/04/17 00:14 09/04/17 00:25 0.1 MG Diphenhydramine HCl (Benadryl Cap) 50 mg Q6H PRN PO 09/04/17 17:00 10/04/17 16:59 09/05/17 16:58 50 MG Pantoprazole Sodium (Protonix Tab) 40 mg BID PO 09/05/17 08:00 10/05/17 07:59 09/05/17 20:18 40 MG
[2017-09-05] MEDS: ZOLPIDEM TARTRATE 10 MG TAB PO PRN (21:05)
[2017-09-05 22:32] VITALS: BP 169/98; PULSE 88; TEMP 36.4; O2SAT 93
[2017-09-06] VITALS (9 sets, daily range): BP systolic 103–142; BP diastolic 64–89; PULSE 58–102; TEMP 36.2–36.8; O2SAT 92–97
[2017-09-06] MEDS: HYDROmorphone INJ 1 MG/ML SYR IV PRN ×4 (02:40→16:01)
[2017-09-06] MEDS: IPRATROPIUM BROMIDE NEB SOLN 0.02% 2.5 ML VIAL INH SCH ×4 (03:00→19:03)
[2017-09-06] MEDS: LEVALBUTEROL 0.63MG/3 ML NEB INH SCH ×4 (03:00→19:03)
[2017-09-06] MEDS: OXYCODONE/ACETAMINOPHEN 5-325 TAB PO PRN ×4 (04:13→19:06)
[2017-09-06 05:30] LABS: HEMATOCRIT 26.4 % (42-52); HEMOGLOBIN 7.9 g/dL (14.0-18.0)
[2017-09-06 05:59] LABS: CALCIUM 8.2 mg/dl (8.5-10.1); CREATININE 0.98 mg/dl (0.60-1.40); POTASSIUM 3.9 mmol/L (3.5-5.1)
[2017-09-06] MEDS: MAGNESIUM CHLORIDE 64MG DELAYED REL TAB PO SCH ×2 (07:37→20:00)
[2017-09-06] MEDS: LACTOBACILLUS ACIDOPHILUS (FLORANEX) TAB PO SCH ×3 (07:37→17:00)
[2017-09-06] MEDS: PAROXETINE 20 MG TAB PO SCH (07:37)
[2017-09-06] MEDS: PANTOprazole SOD 40 MG TAB PO SCH ×2 (07:37→20:00)
[2017-09-06] MEDS: METOPROLOL SUCC 50MG EXT REL TAB PO SCH (07:38)
[2017-09-06] MEDS: ALUMINUM/MAGNESIUM/SIMETH (MAALOX MAX) 30 ML UDC PO PRN (07:38)
[2017-09-06] MEDS: VANCOMYCIN HCL 125 MG CAP PO SCH (07:39)
[2017-09-06] MEDS ORDERED: POTASSIUM CHLORIDE 20 MEQ TABCR PO ONE (09:00)
[2017-09-06] MEDS ORDERED: FUROSEMIDE INJ 40 MG in SYRINGE 0 ML IV ONE ×2 (09:00→18:30)
[2017-09-06] MEDS: CHOLESTYRAMINE LIGHT 4 GM PKT PO SCH ×2 (11:48→21:54)
[2017-09-06 15:32] LABS: HEMATOCRIT 29.2 % (42-52); HEMOGLOBIN 8.8 g/dL (14.0-18.0)
[2017-09-06] MEDS ORDERED: hydrOXYzine HCL 25 MG TAB PO PRN (17:45)
[2017-09-06] MEDS: ZOLPIDEM TARTRATE 5 MG TAB PO PRN (19:06)
--- NOTE | 2017-09-06 20:58 | Progress Note ---
Medicine Progress Note Date & Time of Visit: Sep 06, 2017 at 17:30 . Subjective CC: Follow-up visit for GI bleed and other problems. HPI: Patient reports persistent dark stools, but nursing documentation describes brown stools. Complains of some persistent upper abdominal discomfort. Chronic low back pain- requesting IV hydromorphone on regular basis. Continues to have rash on extremities; pt has been applying alcohol to his skin. Feels less fatigued since transfusion of pRBC's earlier today. ROS: General- no fever Resp- no cough; no shortness of breath Cardiac- lower extremity edema; no chest pain GI- as noted above in HPI - no dysuria . Objective Last 8 Hrs Date Time Temp Pulse Resp B/P (MAP) Pulse Ox O2 Delivery O2 Flow Rate FiO2 09/06/17 15:29 36.6 79 18 129/89 (102) 95 Room Air Physical Exam: General- sitting in chair; no acute distress Eyes- anicteric Neck- no JVD Lungs- clear; no respiratory distress Cardiovascular- RRR, no murmur or gallop; 1+ pretibial edema Abdomen- + BS, soft, nontender Extremities- no cyanosis; no calf tenderness Neuro- alert, mild confusion Skin- multiple excoriated lesions . Laboratory Results: Last 24 Hours Test 09/06/17 05:19 09/06/17 15:03 Hemoglobin 7.9 g/dL 8.8 g/dL Hematocrit 26.4 % 29.2 % Sodium Level 136 mmol/L Potassium Level 3.9 mmol/L Chloride Level 100 mmol/L Carbon Dioxide Level 31 mmol/L Anion Gap 5.0 mmol/L Blood Urea Nitrogen 11 mg/dl Creatinine 0.98 mg/dl Est Creatinine Clear Calc Drug Dose 87.2 ml/min Estimated GFR () 94.7 Estimated GFR (Non- 81.7 BUN/Creatinine Ratio 11.1 Random Glucose 87 mg/dl Calcium Level 8.2 mg/dl Assessment & Plan GI BLEED / ACUTE BLOOD LOSS ANEMIA Patient presented with melena. Stools were heme positive. 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 Hgb 11.4 --> --> 7.9. Patient experienced fatigue and dyspnea with ambulation. Transitioned PPI from parenteral to oral. Transfused 1 unit pRBC's today. Hgb post-transfusion 8.8. Discharge on Fe supplementation. Follow. LOWER EXTREMITY EDEMA Probably secondary to IV fluids. Had echo May 2017- no need to repeat at this time. Received IV furosemide with improvement. Follow. HYPERTENSION Continue metoprolol. COPD Pulmonary status stable. RECENT DIFF COLITIS Continue vancomycin taper. RASH Pruritic rash with excoriations. ? xerodermatitis. Receiving IV diphenhydramine PRN. Patient advised not to apply alcohol to skin. Outpatient Derm appt arranged. Patient a bit confused. Change antihistamine to hydroxyzine 25 mg q 6 hrs PRN. CONFUSION Patient somewhat confused today. Receiving diphenhydramine for pruritis and IV hydromorphone for pain. Change antihistamine to hydroxyzine. Stop hydromorphone. CHRONIC LOW BACK PAIN No apparent need for IV hydromorphone at this time. De-escalate to usual dosing of oxycodone / acetaminophen. VTE PROPHYLAXIS SCD's ordered. Ambulate. DISPOSITION Expected discharge to home. Family Medicine follow-up with Dr. Monroy. . Current Inpatient Medications: Current Inpatient Medications Medications (Trade) Dose Ordered Sig/Tyree Route Start Time Stop Time Status Last Admin Dose Admin Ondansetron HCl (Zofran Inj) 4 mg Q6H PRN IV 08/31/17 15:45 09/30/17 15:44 09/02/17 03:14 4 MG Albuterol (Ventolin Hfa Inhaler) 2 puffs QID PRN INH 08/31/17 16:00 09/30/17 15:59 Cholestyramine Resin (Questran Powder Light) 4 gm BID@ PO 08/31/17 22:00 09/30/17 21:59 09/04/17 14:32 4 GM Ipratropium [place] (Atrovent 0.02% 0.5MG/2.5ML Neb) 0.5 mg Q6R INH 08/31/17 21:00 09/30/17 20:59 09/05/17 19:30 0.5 MG Levalbuterol (Xopenex 0.63 Mg/ 3 Ml Neb) 0.63 mg Q6R INH 08/31/17 21:00 09/30/17 20:59 09/05/17 19:31 0.63 MG Metoprolol Succinate (Toprol Xl Tab) 100 mg QAM PO 09/01/17 09:00 10/01/17 08:59 09/06/17 07:38 100 MG Pantoprazole Sodium (Protonix Tab) 40 mg QAM PO 09/01/17 09:00 10/01/17 08:59 Future Hold 09/03/17 06:19 40 MG Paroxetine HCl (pAXil TAB) 40 mg DAILY PO 09/01/17 09:00 10/01/17 08:59 09/06/17 07:37 40 MG Lactobacillus Acidophilus (Floranex Tab) 4 tab TIDM PO 08/31/17 17:21 09/30/17 17:59 09/06/17 11:49 4 TAB Magnesium Chloride (Slow-Mag Tab) 64 mg BID PO 09/01/17 20:00 10/01/17 20:59 09/06/17 07:37 64 MG Al Hydrox/Mg Hydrox/Simethicone (Maalox Max Susp) 15 ml Q6H PRN PO 09/01/17 16:30 10/01/17 16:29 09/06/17 07:38 15 ML Vancomycin HCl (VANCOCIN HCl) 125 mg DAILY@0900 PO 09/03/17 11:00 09/13/17 10:59 09/06/17 07:39 125 MG Clonidine HCl (Catapres Tab) 0.1 mg Q6H PRN PO 09/04/17 00:15 10/04/17 00:14 09/04/17 00:25 0.1 MG Pantoprazole Sodium (Protonix Tab) 40 mg BID PO 09/05/17 08:00 10/05/17 07:59 09/06/17 07:37 40 MG Oxycodone/ Acetaminophen (Percocet 5-325mg Tab) 1 tab Q6H PRN PO 09/06/17 17:45 09/14/17 15:59 09/06/17 19:06 1 TAB Hydroxyzine HCl (Vistaril Tab) 25 mg Q6H PRN PO 09/06/17 17:45 10/06/17 17:44 Zolpidem Tartrate (Ambien Tab) 5 mg HS PRN PO 09/06/17 18:15 10/06/17 18:14 09/06/17 19:06 5 MG
[2017-09-07] MEDS: OXYCODONE/ACETAMINOPHEN 5-325 TAB PO PRN ×4 (00:57→19:52)
[2017-09-07 01:01] VITALS: BP 143/78; PULSE 81; TEMP 36.3; O2SAT 90
[2017-09-07] MEDS: LEVALBUTEROL 0.63MG/3 ML NEB INH SCH ×4 (02:06→19:02)
[2017-09-07] MEDS: IPRATROPIUM BROMIDE NEB SOLN 0.02% 2.5 ML VIAL INH SCH ×4 (02:06→19:02)
[2017-09-07 06:26] LABS: HEMATOCRIT 28.8 % (42-52); HEMOGLOBIN 9.1 g/dL (14.0-18.0); MEAN CELL VOLUME 80.4 fL (80-100); MEAN CORPUSCULAR HEMOGLOBIN 25.4 pg (25-34); MEAN CORPUSCULAR HGB CONC 31.6 g/dl (32-36); MEAN PLATELET VOLUME 8.4 fL (7.4-10.4); PLATELET COUNT 183 K/uL (130-400); RED CELL DISTRIBUTION WIDTH CV 16.9 % (11.5-14.5); RED CELL DISTRIBUTION WIDTH SD 50.1 fL (36.4-46.3); WHITE BLOOD COUNT 5.08 K/uL (4.8-10.8)
[2017-09-07 07:03] LABS: CALCIUM 8.3 mg/dl (8.5-10.1); CREATININE 1.12 mg/dl (0.60-1.40); POTASSIUM 3.9 mmol/L (3.5-5.1)
[2017-09-07 07:43] VITALS: BP 164/77; PULSE 83; TEMP 36.3; O2SAT 93
[2017-09-07 07:45] VITALS: O2SAT 90
[2017-09-07] MEDS: PAROXETINE 20 MG TAB PO SCH (07:48)
[2017-09-07] MEDS: METOPROLOL SUCC 50MG EXT REL TAB PO SCH (07:49)
[2017-09-07] MEDS: LACTOBACILLUS ACIDOPHILUS (FLORANEX) TAB PO SCH ×3 (07:49→16:46)
[2017-09-07] MEDS: MAGNESIUM CHLORIDE 64MG DELAYED REL TAB PO SCH ×2 (07:49→19:53)
[2017-09-07] MEDS: PANTOprazole SOD 40 MG TAB PO SCH ×2 (07:49→19:52)
[2017-09-07] MEDS: VANCOMYCIN HCL 125 MG CAP PO SCH (07:50)
[2017-09-07] MEDS: CHOLESTYRAMINE LIGHT 4 GM PKT PO SCH ×2 (10:00→21:05)
[2017-09-07] MEDS ORDERED: HYDROmorphone INJ 1 MG/ML SYR IV PRN (14:00)
[2017-09-07 16:21] VITALS: BP 165/88; PULSE 78; TEMP 36.4; O2SAT 92
--- NOTE | 2017-09-07 19:56 | DIAGNOSTIC IMAGING REPORT ---
LUMBAR SPINE MRI HISTORY: severe low back pain TECHNIQUE: Multiplanar multisequence MRI of the lumbar spine was performed without the use of contrast. COMPARISON: Abdomen and pelvis CT 08/31/2017. FINDINGS: For the purpose of the report the L5-S1 disc space will be located on axial image 27 of 30. Mild superior endplate compression of approximately 10% at the T12 vertebral body. There is superior endplate edema and also mild paravertebral edema at this level. Findings are consistent with an acute superior endplate compression fracture. No associated retropulsion. No fracture or subluxation within the lumbar spine vertebral bodies. The conus terminates at the L2 level. A large left renal cyst is partially visualized. Moderate to severe disc space narrowing and endplate degenerative changes at L5-S1. Remaining disc spaces are preserved. L1-L2: No significant central canal or neural foraminal narrowing. L2-L3: No significant central canal or neural foraminal narrowing. L3-L4: No significant central canal or neural foraminal narrowing. L4-L5: No significant central canal or neural foraminal narrowing. Tiny broad-based posterior disc bulge. L5-S1: Small broad-based posterior disc bulge with a local central annular tear. No significant central canal narrowing. There is mild bilateral neural foraminal narrowing due to the disc bulge and facet hypertrophy. IMPRESSION: 1. There is an acute mild superior endplate compression fracture T12 demonstrating approximately 10% loss of height. No associated retropulsion. 2. Degenerative disc disease at L5-S1 as described above resulting in mild bilateral neural foraminal narrowing. 3. No significant central canal narrowing. Electronically signed by: Shaun Burns M.D. 09/07/2017 7:54 PM Dictated Date/Time: 09/07/2017 7:49 PM
[2017-09-07] MEDS: ZOLPIDEM TARTRATE 5 MG TAB PO PRN (21:20)
--- NOTE | 2017-09-07 22:58 | Progress Note ---
Medicine Progress Note Date & Time of Visit: Sep 07, 2017 at 13:56 . Subjective CC: Follow-up visit for GI bleed and other problems. HPI: Feels better after transfusion yesterday. Narcotics de-escalated yesterday (IV Dilaudid stopped). Having low back pain, worse than baseline, no associated sciatica. Ambulating with cane without too much difficulty. No nausea, vomiting. ROS: General- no fever Resp- no cough; no shortness of breath Cardiac- lower extremity edema improved; no chest pain GI- as noted above in HPI Derm- persistent rash . Objective Last 8 Hrs Date Time Temp Pulse Resp B/P (MAP) Pulse Ox O2 Delivery O2 Flow Rate FiO2 09/07/17 07:45 90 Room Air 09/07/17 07:43 36.3 83 18 164/77 (106) 93 Room Air Physical Exam: General- lying in bed; no acute distress Eyes- anicteric Neck- no JVD Lungs- clear; no respiratory distress Cardiovascular- RRR, no murmur or gallop; 1+ pretibial edema Abdomen- + BS, soft, nontender Back- no lumbar tenderness or deformity Extremities- no cyanosis; no calf tenderness Neuro- alert, confusion resolved Skin- multiple excoriated lesions . Laboratory Results: Last 24 Hours Test 09/06/17 15:03 09/07/17 06:04 Hemoglobin 8.8 g/dL 9.1 g/dL Hematocrit 29.2 % 28.8 % White Blood Count 5.08 K/uL Red Blood Count 3.58 M/uL Mean Corpuscular Volume 80.4 fL Mean Corpuscular Hemoglobin 25.4 pg Mean Corpuscular Hemoglobin Concent 31.6 g/dl RDW Standard Deviation 50.1 fL RDW Coefficient of Variation 16.9 % Platelet Count 183 K/uL Mean Platelet Volume 8.4 fL Sodium Level 136 mmol/L Potassium Level 3.9 mmol/L Chloride Level 101 mmol/L Carbon Dioxide Level 31 mmol/L Anion Gap 4.0 mmol/L Blood Urea Nitrogen 12 mg/dl Creatinine 1.12 mg/dl Est Creatinine Clear Calc Drug Dose 76.3 ml/min Estimated GFR () 80.6 Estimated GFR (Non- 69.5 BUN/Creatinine Ratio 10.8 Random Glucose 86 mg/dl Calcium Level 8.3 mg/dl Assessment & Plan GI BLEED / ACUTE BLOOD LOSS ANEMIA Patient presented with melena. Stools were heme positive. 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 Hgb 11.4 --> --> 7.9. Patient experienced fatigue and dyspnea with ambulation. Transitioned PPI from parenteral to oral. Transfused 1 unit pRBC's yesterday. Hgb post-transfusion 9.1. Discharge on Fe supplementation. Follow. LOWER EXTREMITY EDEMA Probably secondary to IV fluids. Had echo May 2017- no need to repeat at this time. Received IV furosemide with improvement. Follow. HYPERTENSION Continue metoprolol. COPD Pulmonary status stable. RECENT DIFF COLITIS Continue vancomycin taper. RASH Pruritic rash with excoriations. ? xerodermatitis. Receiving IV diphenhydramine PRN. Patient advised not to apply alcohol to skin. Outpatient Derm appt arranged. Patient a bit confused. Change antihistamine to hydroxyzine 25 mg q 6 hrs PRN. CONFUSION Patient somewhat confused today. Receiving diphenhydramine for pruritis and IV hydromorphone for pain. Change antihistamine to hydroxyzine. Stopped hydromorphone. Improved CHRONIC LOW BACK PAIN No apparent need for IV hydromorphone at this time. De-escalate to usual dosing of oxycodone / acetaminophen 1 tab QID. Patient feels that back pain is worse / different. Has not had any recent imaging. Check MRI to rule out significant pathology. Try to avoid increasing narcotic analgesics if possible. RENAL CYST Known to have left renal cyst; doubt that it is symptomatic. Consider outpatient Urology consultation if not previously done. VTE PROPHYLAXIS SCD's ordered. Ambulate. DISPOSITION Expected discharge to home. Family Medicine follow-up with Dr. Monroy. . Current Inpatient Medications: Current Inpatient Medications Medications (Trade) Dose Ordered Sig/Tyree Route Start Time Stop Time Status Last Admin Dose Admin Ondansetron HCl (Zofran Inj) 4 mg Q6H PRN IV 08/31/17 15:45 09/30/17 15:44 09/02/17 03:14 4 MG Albuterol (Ventolin Hfa Inhaler) 2 puffs QID PRN INH 08/31/17 16:00 09/30/17 15:59 Cholestyramine Resin (Questran Powder Light) 4 gm BID@10,22 PO 08/31/17 22:00 09/30/17 21:59 09/04/17 14:32 4 GM Ipratropium [place] (Atrovent 0.02% 0.5MG/2.5ML Neb) 0.5 mg Q6R INH 08/31/17 21:00 09/30/17 20:59 09/05/17 19:30 0.5 MG Levalbuterol (Xopenex 0.63 Mg/ 3 Ml Neb) 0.63 mg Q6R INH 08/31/17 21:00 09/30/17 20:59 09/05/17 19:31 0.63 MG Metoprolol Succinate (Toprol Xl Tab) 100 mg QAM PO 09/01/17 09:00 10/01/17 08:59 09/07/17 07:49 100 MG Pantoprazole Sodium (Protonix Tab) 40 mg QAM PO 09/01/17 09:00 10/01/17 08:59 Future Hold 09/03/17 06:19 40 MG Paroxetine HCl (pAXil TAB) 40 mg DAILY PO 09/01/17 09:00 10/01/17 08:59 09/07/17 07:48 40 MG Lactobacillus Acidophilus (Floranex Tab) 4 tab TIDM PO 08/31/17 17:21 09/30/17 17:59 09/07/17 13:00 4 TAB Magnesium Chloride (Slow-Mag Tab) 64 mg BID PO 09/01/17 20:00 10/01/17 20:59 09/07/17 07:49 64 MG Al Hydrox/Mg Hydrox/Simethicone (Maalox Max Susp) 15 ml Q6H PRN PO 09/01/17 16:30 10/01/17 16:29 09/06/17 07:38 15 ML Vancomycin HCl (VANCOCIN HCl) 125 mg DAILY@0900 PO 09/03/17 11:00 09/13/17 10:59 09/07/17 07:50 125 MG Clonidine HCl (Catapres Tab) 0.1 mg Q6H PRN PO 09/04/17 00:15 10/04/17 00:14 09/04/17 00:25 0.1 MG Pantoprazole Sodium (Protonix Tab) 40 mg BID PO 1/10/18 08:00 10/05/17 07:59 09/07/17 07:49 40 MG Oxycodone/ Acetaminophen (Percocet 5-325mg Tab) 1 tab Q6H PRN PO 09/06/17 17:45 09/14/17 15:59 09/07/17 07:47 1 TAB Hydroxyzine HCl (Vistaril Tab) 25 mg Q6H PRN PO 09/06/17 17:45 10/06/17 17:44 09/07/17 07:47 25 MG Zolpidem Tartrate (Ambien Tab) 5 mg HS PRN PO 09/06/17 18:15 10/06/17 18:14 09/06/17 19:06 5 MG
[2017-09-08] VITALS: BP 121/77; PULSE 81; TEMP 36.2; O2SAT 92
[2017-09-08] MEDS: LEVALBUTEROL 0.63MG/3 ML NEB INH SCH ×4 (01:12→19:11)
[2017-09-08] MEDS: IPRATROPIUM BROMIDE NEB SOLN 0.02% 2.5 ML VIAL INH SCH ×4 (01:12→19:10)
[2017-09-08] MEDS: OXYCODONE/ACETAMINOPHEN 5-325 TAB PO PRN ×4 (01:49→19:50)
[2017-09-08 07:36] VITALS: BP 163/81; PULSE 77; TEMP 36.4; O2SAT 93
[2017-09-08] MEDS: PAROXETINE 20 MG TAB PO SCH (08:17)
[2017-09-08] MEDS: MAGNESIUM CHLORIDE 64MG DELAYED REL TAB PO SCH ×2 (08:17→19:51)
[2017-09-08] MEDS: METOPROLOL SUCC 50MG EXT REL TAB PO SCH (08:17)
[2017-09-08] MEDS: VANCOMYCIN HCL 125 MG CAP PO SCH (08:18)
[2017-09-08] MEDS: PANTOprazole SOD 40 MG TAB PO SCH ×2 (08:18→19:51)
[2017-09-08] MEDS: LACTOBACILLUS ACIDOPHILUS (FLORANEX) TAB PO SCH ×3 (08:19→15:58)
[2017-09-08 08:30] VITALS: O2SAT 93
[2017-09-08] MEDS: CHOLESTYRAMINE LIGHT 4 GM PKT PO SCH ×2 (10:00→19:51)
[2017-09-08 15:11] VITALS: BP 133/76; PULSE 79; TEMP 36.5; O2SAT 94
[2017-09-08] MEDS ORDERED: HYDROmorphone INJ 1 MG/ML SYR IV PRN (16:30)
--- NOTE | 2017-09-08 19:37 | Progress Note ---
Medicine Progress Note Date & Time of Visit: Sep 08, 2017 at 16:19 . Subjective CC: Follow-up visit for GI bleed, back pain, and other problems. HPI: Persistent low back pain without radiation. No fever. No nausea, vomiting. Stools dark at times,no hematochezia. Rash / itching improved. Ambulating. ROS: General- no fever, no chills Resp- no cough; no shortness of breath Cardiac- no chest pain, edema improved GI- as noted above in HPI - no dysuria . Objective Last 8 Hrs Date Time Temp Pulse Resp B/P (MAP) Pulse Ox O2 Delivery O2 Flow Rate FiO2 09/08/17 15:11 36.5 79 20 133/76 (95) 94 Room Air 09/08/17 08:30 93 Room Air Physical Exam: General- lying in bed; no acute distress Eyes- anicteric Neck- no JVD Lungs- clear; no respiratory distress Cardiovascular- RRR, no murmur or gallop; 1+ pretibial edema Abdomen- + BS, soft, nontender Back- mild lumbar paraspinal tenderness Extremities- no cyanosis; no calf tenderness Neuro- alert Skin- multiple excoriated lesions . Assessment & Plan GI BLEED / ACUTE BLOOD LOSS ANEMIA Patient presented with melena. Stools were heme positive. 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 Hgb 11.4 --> --> 7.9. Patient experienced fatigue and dyspnea with ambulation. Transitioned PPI from parenteral to oral. Transfused 1 unit pRBC's. Hgb post-transfusion 9.1. Discharge on Fe supplementation. Follow. LOWER EXTREMITY EDEMA Probably secondary to IV fluids. Had echo May 2017- no need to repeat at this time. Received IV furosemide with improvement. Follow. HYPERTENSION Continue metoprolol. COPD Pulmonary status stable. RECENT DIFF COLITIS Continue vancomycin taper. RASH Pruritic rash with excoriations. ? xerodermatitis. Receiving IV diphenhydramine PRN. Patient advised not to apply alcohol to skin. Outpatient Derm appt arranged. Patient a bit confused. Change antihistamine to hydroxyzine 25 mg q 6 hrs PRN. CONFUSION Patient somewhat confused at times. Received diphenhydramine for pruritis and IV hydromorphone for pain. Change antihistamine to hydroxyzine. Stopped hydromorphone. Confusion resolved. CHRONIC LOW BACK PAIN Chronic low back pain. Medication agreement with PCP for Percocet 1 tab QID. Patient complained of worsening low back back without radiation. MRI demonstrated apparent acute compression fracture at T 12 as well as disc space narrowing L5-S1. Will adjust analgesics temporary in light of acute compression fracture- increase Percocet to 2 tabs QID. COMPRESSION FRACTURE Check vit D level. RENAL CYSTS Known to have renal cysts, largest measuring 7 cm on left. Consider outpatient Urology consultation if not previously done. VTE PROPHYLAXIS SCD's ordered. Ambulate. DISPOSITION Expected discharge to home. Family Medicine follow-up with Dr. Monroy. . Current Inpatient Medications: Current Inpatient Medications Medications (Trade) Dose Ordered Sig/Tyree Route Start Time Stop Time Status Last Admin Dose Admin Ondansetron HCl (Zofran Inj) 4 mg Q6H PRN IV 08/31/17 15:45 09/30/17 15:44 09/02/17 03:14 4 MG Albuterol (Ventolin Hfa Inhaler) 2 puffs QID PRN INH 08/31/17 16:00 09/30/17 15:59 Cholestyramine Resin (Questran Powder Light) 4 gm BID@10,22 PO 08/31/17 22:00 09/30/17 21:59 09/04/17 14:32 4 GM Ipratropium [place] (Atrovent 0.02% 0.5MG/2.5ML Neb) 0.5 mg Q6R INH 08/31/17 21:00 09/30/17 20:59 09/05/17 19:30 0.5 MG Levalbuterol (Xopenex 0.63 Mg/ 3 Ml Neb) 0.63 mg Q6R INH 08/31/17 21:00 09/30/17 20:59 09/05/17 19:31 0.63 MG Metoprolol Succinate (Toprol Xl Tab) 100 mg QAM PO 09/01/17 09:00 10/01/17 08:59 09/08/17 08:17 100 MG Pantoprazole Sodium (Protonix Tab) 40 mg QAM PO 09/01/17 09:00 10/01/17 08:59 Future Hold 09/03/17 06:19 40 MG Paroxetine HCl (pAXil TAB) 40 mg DAILY PO 09/01/17 09:00 10/01/17 08:59 09/08/17 08:17 40 MG Lactobacillus Acidophilus (Floranex Tab) 4 tab TIDM PO 08/31/17 17:21 09/30/17 17:59 09/08/17 15:58 4 TAB Magnesium Chloride (Slow-Mag Tab) 64 mg BID PO 09/01/17 20:00 10/01/17 20:59 09/08/17 08:17 64 MG Al Hydrox/Mg Hydrox/Simethicone (Maalox Max Susp) 15 ml Q6H PRN PO 09/01/17 16:30 10/01/17 16:29 09/06/17 07:38 15 ML Vancomycin HCl (VANCOCIN HCl) 125 mg DAILY@0900 PO 09/03/17 11:00 09/13/17 10:59 09/08/17 08:18 125 MG Clonidine HCl (Catapres Tab) 0.1 mg Q6H PRN PO 09/04/17 00:15 10/04/17 00:14 09/04/17 00:25 0.1 MG Pantoprazole Sodium (Protonix Tab) 40 mg BID PO 09/05/17 08:00 10/05/17 07:59 09/08/17 08:18 40 MG Oxycodone/ Acetaminophen (Percocet 5-325mg Tab) 1 tab Q6H PRN PO 09/06/17 17:45 09/14/17 15:59 09/08/17 13:47 1 TAB Hydroxyzine HCl (Vistaril Tab) 25 mg Q6H PRN PO 09/06/17 17:45 10/06/17 17:44 09/07/17 07:47 25 MG Zolpidem Tartrate (Ambien Tab) 5 mg HS PRN PO 09/06/17 18:15 10/06/17 18:14 09/07/17 21:20 5 MG
[2017-09-08] MEDS: ZOLPIDEM TARTRATE 5 MG TAB PO PRN (20:56)
[2017-09-09] MEDS: OXYCODONE/ACETAMINOPHEN 5-325 TAB PO PRN ×3 (00:02→12:08)
[2017-09-09 00:27] VITALS: BP 111/66; PULSE 81; TEMP 36.3; O2SAT 94
[2017-09-09] MEDS: LEVALBUTEROL 0.63MG/3 ML NEB INH SCH ×2 (01:14→07:40)
[2017-09-09] MEDS: IPRATROPIUM BROMIDE NEB SOLN 0.02% 2.5 ML VIAL INH SCH ×2 (01:14→07:39)
[2017-09-09 07:14] LABS: HEMATOCRIT 29.4 % (42-52); HEMOGLOBIN 8.9 g/dL (14.0-18.0); MEAN CELL VOLUME 80.3 fL (80-100); MEAN CORPUSCULAR HEMOGLOBIN 24.3 pg (25-34); MEAN CORPUSCULAR HGB CONC 30.3 g/dl (32-36); MEAN PLATELET VOLUME 8.3 fL (7.4-10.4); PLATELET COUNT 185 K/uL (130-400); RED CELL DISTRIBUTION WIDTH CV 16.8 % (11.5-14.5); WHITE BLOOD COUNT 4.66 K/uL (4.8-10.8)
[2017-09-09 08:12] VITALS: BP 162/96; PULSE 70; TEMP 36.4; O2SAT 94
[2017-09-09] MEDS: PAROXETINE 20 MG TAB PO SCH (08:22)
[2017-09-09] MEDS: PANTOprazole SOD 40 MG TAB PO SCH (08:22)
[2017-09-09] MEDS: LACTOBACILLUS ACIDOPHILUS (FLORANEX) TAB PO SCH ×2 (08:22→12:04)
[2017-09-09] MEDS: METOPROLOL SUCC 50MG EXT REL TAB PO SCH (08:23)
[2017-09-09] MEDS: MAGNESIUM CHLORIDE 64MG DELAYED REL TAB PO SCH (08:24)
[2017-09-09] MEDS: VANCOMYCIN HCL 125 MG CAP PO SCH (08:24)
[2017-09-09 08:30] VITALS: O2SAT 94
[2017-09-09] MEDS ORDERED: VANCOMYCIN HCL 125 MG CAP PO SCH (09:00)
[2017-09-09] MEDS: CHOLESTYRAMINE LIGHT 4 GM PKT PO SCH (10:00)
[2017-09-09 12:30] VITALS: BP 162/96; PULSE 70; TEMP 36.4; O2SAT 94
[2017-09-09] MEDS ORDERED: HYDROmorphone INJ 1 MG/ML SYR IV ONE (13:00)
[2017-09-09] MEDS ORDERED: PARO40TA2 PO (13:26)
[2017-09-09] MEDS ORDERED: AMLO-114 PO (13:26)
[2017-09-09] MEDS ORDERED: MELO7.5T5 PO (13:26)
[2017-09-09 13:30] VITALS: BP 156/91; PULSE 66
[2017-09-09] MEDS ORDERED: HYDR-3124 PO (13:34)
[2017-09-09] MEDS ORDERED: PANT40TA PO (13:34)
--- NOTE | 2017-09-09 13:54 | Discharge Instructions ---
Discharge Instructions Date of Service Sep 09, 2017. Admission Reason for Admission: abdominal pain, diarrhea . Discharge Discharge Diagnosis / Problem: gastrointestinal bleeding, back pain, rash Discharge Goals Goal(s): Decrease discomfort, Improve disease control Activity Recommendations Activity Limitations: as noted below Lifting Limitations: gradually increase as tolerated Exercise/Sports Limitations: gradually increase as tolerated . 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 Avoid aspirin an anti-inflammatory medications like ibuprofen (Advil, Motrin), naproxen (Aleve), meloxicam (Mobic), and others. Avoid heavy drinking. Please ask Dr. Monroy to make a referral to Gastroenterology for follow-up. Take pantoprazole 40 mg twice a day for 1 month, then resume taking it once a day unless otherwise instructed. Your red blood count was low from the gastrointestinal bleeding, It was better after you got a blood transfusion. Take ferrous sulfate (iron pill) daily at lunch time with ascorbic acid ( vitamin C). MRI of your back showed a slight compression fracture at T12 as well as degenerative changes at L5-S1. The compression fracture will heal and the pain will improve. You may use oxycodone / acetaminophen (Percocet) 2 pills every 6 hours as needed for severe pain for 1 week, then go back to 1 pill every 6 hours as needed. New prescription for oxycodone / acetaminophen (Percocet) was sent to your pharmacy on 09/05/17. Your vitamin D level was low. Take calcium with vitamin D (Oscal and other brands) twice a day. Also take vitamin D 50,000 units once a week for 4 weeks. Pictures of your kidneys showed cysts on both sides. These are usually nothing to worry about and usually do not cause pain. Please discuss with Dr. Monroy and see if he recommends a referral to Urology. Seek medical attention if you have: * temperature above 101 * chest pain or trouble breathing * abdominal pain, nausea, vomiting * diarrhea, dark stools or bloody stools * any unanswered questions or concerns Call 911 if symptoms are severe. Call if you have any questions or problems. You can reach a [facility] hospitalist on duty at [facility] 24 hours a day by calling [phone]. Please take good care of yourself. Rahul Boyd . Current Hospital Diet Patient's current hospital diet: AHA Diet (Heart Healthy), Low Sodium Diet (2gm Na) Discharge Diet Recommended Diet: AHA Diet (Heart Healthy) Procedures Procedures Performed: EGD (scope of esophagus) - ulcer in thickeing, chronic inflammation of espophagus, inflammation of stomach MRI low back- small compression fracture T12, degenerative changes L5-S1 CT and US of kidneys- cysts Pending Studies Studies pending at discharge: no Medical Emergencies . Who to Call and When: Medical Emergencies: If at any time you feel your situation is an emergency, please call 911 immediately. . Non-Emergent Contact Non-Emergency issues call your: Primary Care Provider, Hospital Doctor . . "Provider Documentation" section prepared by Rahul Boyd. . VTE Core Measure Inpt VTE Proph given/why not?: Enoxaparin (Lovenox)SQ, SCD's
[2017-09-09] MEDS ORDERED: ASCO500T16 PO (13:57)
[2017-09-09] MEDS ORDERED: CALC-343 PO (13:57)
[2017-09-09] MEDS ORDERED: FERR325T5 PO (13:57)
[2017-09-09] MEDS ORDERED: ERGO500011 PO (13:57)
--- NOTE | 2017-09-09 23:05 | Progress Note ---
Medicine Progress Note Date & Time of Visit: Sep 09, 2017 at 11:09 . Subjective Bowel movements normalizing in color and consistency. No melena or hematochezia. No nausea or vomiting. Back pain improved with 2 tabs Percocet PRN. Ambulating. . Objective Last 8 Hrs Date Time Temp Pulse Resp B/P (MAP) Pulse Ox O2 Delivery O2 Flow Rate FiO2 09/09/17 08:30 94 Room Air 09/09/17 08:12 36.4 70 18 162/96 (118) 94 Room Air Physical Exam: General- no acute distress Eyes- anicteric Neck- no JVD Lungs- clear; no respiratory distress Cardiovascular- RRR, no murmur or gallop; trace pretibial edema Abdomen- + BS, soft, nontender Extremities- no cyanosis; no calf tenderness Neuro- alert Skin- multiple excoriated lesions . Laboratory Results: Last 24 Hours Test 09/09/17 06:56 White Blood Count 4.66 K/uL Red Blood Count 3.66 M/uL Hemoglobin 8.9 g/dL Hematocrit 29.4 % Mean Corpuscular Volume 80.3 fL Mean Corpuscular Hemoglobin 24.3 pg Mean Corpuscular Hemoglobin Concent 30.3 g/dl RDW Standard Deviation 49.0 fL RDW Coefficient of Variation 16.8 % Platelet Count 185 K/uL Mean Platelet Volume 8.3 fL Assessment & Plan GI BLEED / ACUTE BLOOD LOSS ANEMIA Patient presented with melena. Stools were heme positive. EGD 09/04 demonstrated Hart's esophagus, hiatal hernia, gastritis, nonbleeding Pratik gastric ulcer. Hgb 11.4 --> --> 7.9. Patient experienced fatigue and dyspnea with ambulation. Transitioned PPI from parenteral to oral. Transfused 1 unit pRBC's. Hgb post-transfusion 8.9-9.1. Discharge on Fe supplementation. Follow. HART'S ESOPHAGUS Continue PPI. Should have f/u with GI. LOWER EXTREMITY EDEMA Probably secondary to IV fluids. Had echo May 2017- no need to repeat at this time. Received IV furosemide with improvement. HYPERTENSION Continue metoprolol. COPD Pulmonary status stable. RECENT DIFF COLITIS Completed vancomycin taper. RASH Pruritic rash with excoriations. ? xerodermatitis. Outpatient Derm appt arranged. DC on hydroxyzine 25 mg q 6 hrs PRN. CONFUSION Patient somewhat confused at times. Received diphenhydramine for pruritis and IV hydromorphone for pain. Change antihistamine to hydroxyzine. Stopped hydromorphone. Confusion resolved. CHRONIC LOW BACK PAIN Chronic low back pain. Medication agreement with PCP for Percocet 1 tab QID. Patient complained of worsening low back back without radiation. MRI demonstrated apparent acute compression fracture at T 12 as well as disc space narrowing L5-S1. Will adjust analgesics temporary in light of acute compression fracture- increase Percocet to 2 tabs QID. COMPRESSION FRACTURE T 12 / OSTEOPOROSIS Pain management as above. Vitamin D level = 9. Start vitamin D 50,000 units weekly x 4 and calcium + D BID. Follow vitamin D levels. RENAL CYSTS Known to have renal cysts, largest measuring 7 cm on left. Consider outpatient Urology consultation if not previously done. VTE PROPHYLAXIS Initially received SQ enoxaparin, but it was discontinued when GI bleed diagnosed. SCD's ordered. Ambulate. DISPOSITION Discharge to home. Family Medicine follow-up with Dr. Monroy. . Current Inpatient Medications: Current Inpatient Medications Medications (Trade) Dose Ordered Sig/Tyree Route Start Time Stop Time Status Last Admin Dose Admin Ondansetron HCl (Zofran Inj) 4 mg Q6H PRN IV 08/31/17 15:45 09/30/17 15:44 09/02/17 03:14 4 MG Albuterol (Ventolin Hfa Inhaler) 2 puffs QID PRN INH 08/31/17 16:00 09/30/17 15:59 Cholestyramine Resin (Questran Powder Light) 4 gm BID@ PO 08/31/17 22:00 09/30/17 21:59 09/04/17 14:32 4 GM Ipratropium [place] (Atrovent 0.02% 0.5MG/2.5ML Neb) 0.5 mg Q6R INH 08/31/17 21:00 09/30/17 20:59 09/05/17 19:30 0.5 MG Levalbuterol (Xopenex 0.63 Mg/ 3 Ml Neb) 0.63 mg Q6R INH 08/31/17 21:00 09/30/17 20:59 09/05/17 19:31 0.63 MG Metoprolol Succinate (Toprol Xl Tab) 100 mg QAM PO 09/01/17 09:00 10/01/17 08:59 09/09/17 08:23 100 MG Pantoprazole Sodium (Protonix Tab) 40 mg QAM PO 09/01/17 09:00 10/01/17 08:59 Future Hold 09/03/17 06:19 40 MG Paroxetine HCl (pAXil TAB) 40 mg DAILY PO 09/01/17 09:00 10/01/17 08:59 09/09/17 08:22 40 MG Lactobacillus Acidophilus (Floranex Tab) 4 tab TIDM PO 08/31/17 17:21 09/30/17 17:59 09/09/17 08:22 4 TAB Magnesium Chloride (Slow-Mag Tab) 64 mg BID PO 09/01/17 20:00 10/01/17 20:59 09/09/17 08:24 64 MG Al Hydrox/Mg Hydrox/Simethicone (Maalox Max Susp) 15 ml Q6H PRN PO 09/01/17 16:30 10/01/17 16:29 09/06/17 07:38 15 ML Vancomycin HCl (VANCOCIN HCl) 125 mg DAILY@0900 PO 09/03/17 11:00 09/13/17 10:59 09/09/17 08:24 125 MG Clonidine HCl (Catapres Tab) 0.1 mg Q6H PRN PO 09/04/17 00:15 10/04/17 00:14 09/04/17 00:25 0.1 MG Pantoprazole Sodium (Protonix Tab) 40 mg BID PO 09/05/17 08:00 10/05/17 07:59 09/09/17 08:22 40 MG Hydroxyzine HCl (Vistaril Tab) 25 mg Q6H PRN PO 09/06/17 17:45 10/06/17 17:44 09/07/17 07:47 25 MG Zolpidem Tartrate (Ambien Tab) 5 mg HS PRN PO 09/06/17 18:15 10/06/17 18:14 09/08/17 20:56 5 MG Oxycodone/ Acetaminophen (Percocet 5-325mg Tab) 2 tab Q6H PRN PO 09/08/17 16:30 09/14/17 15:59 09/09/17 06:09 2 TAB
--- NOTE | 2017-09-09 23:20 | Discharge Summary ---
Discharge Summary Date of Service Sep 09, 2017. Discharge Summary Admission Date: Aug 31, 2017 at 15:42 Discharge Date: Sep 09, 2017 Discharge Disposition: Home Principal Diagnosis: upper GI bleed due to gastric ulcer and gastritis OTHER ACUTE / NEW DIAGNOSES: acute blood loss anemia compression fracture T 12 vitamin D deficiency rash . Secondary Diagnoses/Problems: Chronic and Resolved Medical Problems: (1) Hart's esophagus Status: Chronic (2) C. difficile colitis Status: Resolved (3) Chronic neck pain Status: Chronic (5) COPD (chronic obstructive pulmonary disease) Status: Chronic (6) Depression Status: Chronic (7) History of adenomatous polyp of colon Status: Chronic (9) History of basal cell carcinoma Status: Chronic (10) History of Meckel's diverticulum Status: Chronic (11) History of suicide attempt Status: Chronic (12) HTN (hypertension) Status: Chronic (14) Renal cyst Status: Chronic Surgical Problems: (1) H/O hernia repair Status: Chronic (2) History of appendectomy Status: Chronic (3) History of colon resection Permanent Comment: for Meckel's Diverticulum repair Status: Chronic (4) Hx of cardiac cath Permanent Comment: 03/2014 - normal Status: Chronic (5) 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 (6) Hx of skin graft Permanent Comment: 2014 -nose for basal cell carcinoma Status: Chronic . Procedures: EGD transfusion [address] ABDOMEN & PELVIS 08/31/17 IMPRESSION: 1. Patchy variable persistent infiltrative changes in both lung bases highly suggestive of a potential aspiration pneumonitis 2. Several hepatic as well as renal cysts unchanged. 3. Mild stable right renal atrophy. 4. 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 These loops show moderate distention as well as moderate wall edematous change. 5. Mild residual inflammatory small bowel change, primarily of the proximal to mid small bowel, as well as mild nonspecific wall edema of the cecum. Chronic sigmoid diverticulosis with no evidence for acute diverticulitis. 6. The appearance overall is suggestive of enteritis with a component of superimposed small bowel inflammatory change.. 7. Mild chronic sigmoid diverticulosis with no evidence for acute diverticulitis. RENAL US 09/03/17 IMPRESSION: 1. Bilateral duplicated collecting systems. No hydronephrosis. 2. Bilateral renal cysts. 3. Severe cortical thinning/scarring within the right lower pole moiety. MRI LUMBAR SPINE 09/07/17 IMPRESSION: 1. There is an acute mild superior endplate compression fracture T12 demonstrating approximately 10% loss of height. No associated retropulsion. 2. Degenerative disc disease at L5-S1 as described above resulting in mild bilateral neural foraminal narrowing. 3. No significant central canal narrowing. . Consultations: GI . Medication Reconciliation New Medications: Ascorbic Acid (Ascorbic Acid) 500 Mg Tab 500 MG PO DAILY, #30 TAB 5 Refills Take at lunch time with ferrous sulfate (iron). Calcium Carbonate-Cholecalcife (Calcium 500 +D) 1 Tab Tab 1 TAB PO BID, #60 TAB 12 Refills Ergocalciferol (Vitamin D 82678 Unit) 50,000 Unit Cap 1 TAB PO WK, #4 CAP Ferrous Sulfate (Ferrous Sulfate) 325 Mg Tab 325 MG PO DAILY, #30 TAB 5 Refills Take at lunch time with ascorbic acid (vitamin C). Hydroxyzine Hcl (Atarax) 25 Mg Tab 25 MG PO Q6 PRN for Itching, #40 TAB 1 Refill Pantoprazole (Protonix) 40 Mg Tab 40 MG PO BID, #60 TAB Continued Medications: Albuterol Hfa (Ventolin Hfa) 200 Puffs/83566 Mcg Aers 2 PUFFS INH QID PRN for Shortness of Breath, #1 INHALER Fluticasone Furoate-Vilanterol (Breo Ellipta) 1 Inh Inh 1 PUFF INH DAILY Home O2 Therapy (Oxygen) Gas 3 LITERS NA HS Metoprolol Succ (Toprol Xl) (Toprol-Xl ) 100 Mg Tabcr 100 MG PO QAM Oxycodone/Acetaminophen 5MG/325MG (Percocet 5MG/325MG) Tab 1 TABS PO q4-6h PRN for Pain, #20 TABS 0 Refills Pantoprazole (Protonix) 40 Mg Tab 40 MG PO QAM Paroxetine HCl (Paroxetine) 40 Mg Tab 40 MG PO DAILY Zolpidem Tartrate (Ambien) 10 Mg Tab 10 MG PO HS PRN for Sleep Discontinued Medications: Amlodipine (Norvasc) 10 Mg Tab 10 MG PO DAILY, TAB Aspirin (Aspirin 81 Low Dose) 81 Mg Chw 1 TAB PO DAILY Cholestyramine (Cholestyramine Light) 4 Gm Pack 4 GM PO BID@,22 for 15 Days Ipratropium [place] (Ipratropium [place]) 0.5 Mg/2.5 Ml Nebu 0.5 MG INH Q6R for 7 Days Levalbuterol (Levalbuterol HCl) 0.63 Mg/3 Ml Nebu 0.63 MG INH Q6R for 7 Days Meloxicam (Mobic) 7.5 Mg Tab 7.5 MG PO DAILY, TAB Vancomycin Hcl (Vancomycin) 125 Mg Cap 125 MG PO DIRECTED CURRENTLY ON DAY 7. TOMORROW STARTS 1 CAP EVERY OTHER DAY Admission Information HPI (per Admitting provider): HISTORY OF PRESENT COMPLAINT: He is a 61-year-old male with significant past medical history of severe COPD, on home oxygen; depression and anxiety; history of Hart esophagus; hypertension; nonspecific chest pain; tobacco use disorder; cervical radicular pain; and also hiatal hernia. Apparently was in hospital recently with diarrhea, pancolitis and his syncope. He went home on 08/01/2017 and he has been taking vancomycin for the last 10 days for ongoing C. diff colitis. He is back here to the Emergency Room today with abdominal pain, generalized, associated with diarrhea, that has been going on about 10-12 times a day. He also complains to have occasional palpitation and occasional dizziness; and in the ER, he was noted to have very high blood pressure at times of systolic 212 and diastolic 112 and that went down to systolic 170s with palpitation. He also complained to have some chest pain associated with it. No fever, chills, or rigors. No nausea and/or vomiting and does not have any increasing swelling of the legs. He is worried about having heart attack and he is worried about having stroke too with this high blood pressure. His apparent labs and imaging studies came out to be fairly remarkable for nonspecific small intestinal changes, diverticulosis without diverticulitis, and blood pressure noted to be very high in the Emergency Room. From that point, he was admitted to telemetry unit for continuation of care. . Physical Exam (per Admitting): GENERAL: On examination in the Emergency Room, he was not having any acute distress, but he did have some pain in the abdomen. VITAL SIGNS: Temperature 36.7, pulse 76, blood pressure 146/96, saturating 98% on room air. His blood pressure fluctuates very much, in the ER at one point, he went up to 212/112, but coming down to 189/104. HEENT: Unremarkable. NECK: Supple. No JVD, no bruit. CHEST: Decreased breath sounds both sides with more on the left than the right, but no crackles. HEART: S1, S2 regular. ABDOMEN: Soft, benign, tender all over but no guarding or rigidity. Bowel sounds present. EXTREMITIES: Negative for any edema. MUSCULOSKELETAL: Did not show any acute arthritis involving any joint. CENTRAL NERVOUS SYSTEM: He was alert, awake, oriented x3. No focal sensory and/or motor deficit appreciated. . Hospital Course GI BLEED / ACUTE BLOOD LOSS ANEMIA Patient presented with melena. Stools were heme positive. Taking aspirin and meloxicam at home. EGD 09/04 demonstrated Hart's esophagus, hiatal hernia, gastritis, nonbleeding Pratik gastric ulcer. Hgb 11.4 --> --> 7.9. Patient experienced fatigue and dyspnea with ambulation. Transitioned PPI from parenteral to oral. Transfused 1 unit pRBC's. Hgb post-transfusion 8.9-9.1. Discharge on Fe supplementation. Follow. HART'S ESOPHAGUS Continue PPI. Should have f/u with GI. LOWER EXTREMITY EDEMA Probably secondary to IV fluids. Had echo May 2017- no need to repeat at this time. Received IV furosemide with improvement. HYPERTENSION Continue metoprolol. COPD Pulmonary status stable. RECENT DIFF COLITIS Completed vancomycin taper. RASH Pruritic rash with excoriations. ? xerodermatitis. Outpatient Derm appt arranged. DC on hydroxyzine 25 mg q 6 hrs PRN. CONFUSION Patient somewhat confused at times. Received diphenhydramine for pruritis and IV hydromorphone for pain. Change antihistamine to hydroxyzine. Stopped hydromorphone. Confusion resolved. CHRONIC LOW BACK PAIN Chronic low back pain. Medication agreement with PCP for Percocet 1 tab QID. Patient complained of worsening low back back without radiation. MRI demonstrated apparent acute compression fracture at T 12 as well as disc space narrowing L5-S1. Will adjust analgesics temporary in light of acute compression fracture- increase Percocet to 2 tabs QID. COMPRESSION FRACTURE T 12 / OSTEOPOROSIS Pain management as above. Vitamin D level = 9. Start vitamin D 50,000 units weekly x 4 and calcium + D BID. Follow vitamin D levels. RENAL CYSTS Known to have renal cysts, largest measuring 7 cm on left. Consider outpatient Urology consultation if not previously done. VTE PROPHYLAXIS Initially received SQ enoxaparin, but it was discontinued when GI bleed diagnosed. SCD's ordered. Ambulate. DISPOSITION Discharge to home. Family Medicine follow-up with Dr. Monroy. PAPDM database queried. Rx for oxycodone / acetaminophen for chronic pain noted. Patient has medication agreement. . Total time spent on discharge = 40 min. This includes examination of the patient, discharge planning, medication reconciliation, and communication with other providers. . Discharge Instructions Date of Service Sep 09, 2017. Admission Reason for Admission: abdominal pain, diarrhea . Discharge Discharge Diagnosis / Problem: gastrointestinal bleeding, back pain, rash Discharge Goals Goal(s): Decrease discomfort, Improve disease control Activity Recommendations Activity Limitations: as noted below Lifting Limitations: gradually increase as tolerated Exercise/Sports Limitations: gradually increase as tolerated . Instructions / Follow-Up Instructions / Follow-Up APPOINTMENTS: DERMATOLOGY 09/10/2017 11:15 AM Mounika Balbuena MD FAMILY MEDICINE 09/11/2017 2:40 PM Zach Monroy MD OTHER INSTRUCTIONS: EGD (scope of esophagus and stomach) showed a small stomach ulcer, inflammation of the stomach (gastritis) and chronic inflammation of the esophagus called Hart's esophagus. Avoid aspirin an anti-inflammatory medications like ibuprofen (Advil, Motrin), naproxen (Aleve), meloxicam (Mobic), and others. Avoid heavy drinking. Please ask Dr. Monroy to make a referral to Gastroenterology for follow-up. Take pantoprazole 40 mg twice a day for 1 month, then resume taking it once a day unless otherwise instructed. Your red blood count was low from the gastrointestinal bleeding, It was better after you got a blood transfusion. Take ferrous sulfate (iron pill) daily at lunch time with ascorbic acid ( vitamin C). MRI of your back showed a slight compression fracture at T12 as well as degenerative changes at L5-S1. The compression fracture will heal and the pain will improve. You may use oxycodone / acetaminophen (Percocet) 2 pills every 6 hours as needed for severe pain for 1 week, then go back to 1 pill every 6 hours as needed. New prescription for oxycodone / acetaminophen (Percocet) was sent to your pharmacy on 09/05/17. Your vitamin D level was low. Take calcium with vitamin D (Oscal and other brands) twice a day. Also take vitamin D 50,000 units once a week for 4 weeks. Pictures of your kidneys showed cysts on both sides. These are usually nothing to worry about and usually do not cause pain. Please discuss with Dr. Monroy and see if he recommends a referral to Urology. Seek medical attention if you have: * temperature above 101 * chest pain or trouble breathing * abdominal pain, nausea, vomiting * diarrhea, dark stools or bloody stools * any unanswered questions or concerns Call 911 if symptoms are severe. Call if you have any questions or problems. You can reach a [facility] hospitalist on duty at [facility] 24 hours a day by calling [phone]. Please take good care of yourself. Rahul Boyd . Current Hospital Diet Patient's current hospital diet: AHA Diet (Heart Healthy), Low Sodium Diet (2gm Na) Discharge Diet Recommended Diet: AHA Diet (Heart Healthy) Procedures Procedures Performed: EGD (scope of esophagus) - ulcer in thickeing, chronic inflammation of espophagus, inflammation of stomach MRI low back- small compression fracture T12, degenerative changes L5-S1 CT and US of kidneys- cysts Pending Studies Studies pending at discharge: no Medical Emergencies . Who to Call and When: Medical Emergencies: If at any time you feel your situation is an emergency, please call 911 immediately. . Non-Emergent Contact Non-Emergency issues call your: Primary Care Provider, Hospital Doctor . . "Provider Documentation" section prepared by Rahul Boyd. . VTE Core Measure Inpt VTE Proph given/why not?: Enoxaparin (Lovenox)SQ, SCD's .
== END 2017-09-09 14:45 | disposition home or self-care (01) | DRG 378 ==
LOC: C.EDB 10:30 → C.2T 15:42 → ENRESERV 16:39 → C.4E 09-01 15:11
PROVIDERS: ADMIT Internal Medicine; ATTEND Hospitalist
PROC: 0DB68ZX Excision of Stomach, Via Natural or Artificial Opening Endoscopic, Diagnostic (ICD-10-PCS; principal; 2017-09-04 08:21)
DX: K25.4 Chronic or unspecified gastric ulcer with hemorrhage (principal); D62 Acute posthemorrhagic anemia; M80.08XA Age-related osteoporosis with current pathological fracture, vertebra(e), initial encounter for fracture; R07.9 Chest pain, unspecified; Z82.49 Family history of ischemic heart disease and other diseases of the circulatory system; Z82.3 Family history of stroke; F17.200 Nicotine dependence, unspecified, uncomplicated; Z79.82 Long term (current) use of aspirin; J44.9 Chronic obstructive pulmonary disease, unspecified; F32.9 Major depressive disorder, single episode, unspecified; F41.9 Anxiety disorder, unspecified; I10 Essential (primary) hypertension; K22.70 Barrett's esophagus without dysplasia; R00.2 Palpitations; G89.29 Other chronic pain; R60.9 Edema, unspecified

== ENCOUNTER 2017-10-03 13:39 | Inpatient (IN) | payer OTHER ==
[2017-10-03] VITALS (10 sets, daily range): BP systolic 105–153; BP diastolic 71–98; PULSE 75–87; TEMP 36.3–36.8; O2SAT 91–99; Ht 172.7 cm; Wt 96.3 kg
[~2017-10-03] VITALS: Ht 172.7 cm; Wt 96.3 kg
[~2017-10-03 13:39] MED LIST changes: -AMOX1TAB43 PO; +ASCO500T16 PO; -ASPI1CHW12 PO; -ATRINS INH; +CALC-343 PO; +FERR325T5 PO; +HYDR-3124 PO; -MELO7.5T6 PO; -NF1094 PO; -NRV5 PO; +PARO40TA2 PO; -PXL/40 PO; -QSTP PO; -RBX500 PO; -SACC250C3 PO; -XPNINS INH
[2017-10-03] MEDS ORDERED: ASPIRIN 81 MG CHEW PO STA (13:53)
[2017-10-03] MEDS ORDERED: ALBUT/IPRATROP 3MG/0.5MG NEB 3 ML VIAL INH STA (13:54)
--- NOTE | 2017-10-03 14:12 | EMERGENCY ROOM VISIT NOTE ---
History Report prepared by Pedro Luis: Amena Collier Under the Supervision of: Dr. Harpal Kevin M.D. First contact with patient: 13:46 Chief Complaint: SHORTNESS OF BREATH Stated Complaint: DISORIENTED, TROUBLE BREATHING History of Present Illness The patient is a 61 year old male who presents to the Emergency Room with complaints of constant shortness of breath beginning this morning. He states that he woke up today had "a real hard time getting going." He had trouble getting dressed and getting around due to chest pain and shortness of breath. His friend picked him up and states that while they were in the car he was having a very difficult time breathing. Friend states that the patient passed out and lost conscious for a short time. He did not hit his head. The patient is currently chest pain and shortness of breath. He wears 3L of NC/O2 at night. He uses inhalers as needed throughout the day, however they have not been helping. The patient has a history of emphysema, COPD, HTN. He reports a recent admission to the hospital for a previous LA. He denies any recent travel. Pt denies hemoptysis. His PCP is Dr. Monroy. The patient reports that he takes Percocet chronically for lower back pain. He states, "Every time I come in to the hospital they give me 1mg of Dilaudid every 4 hours." When told he was going to receive aspirin today the patient stated, "Aspirin? What the hell is that going to do? I need Dilaudid" Source of History: patient Onset: this morning Position: chest (respiratory) Quality: other (shortness of breath) Timing: constant Associated Symptoms: + LOC, + chest pain, + back pain, + numbness Review of Systems See HPI for pertinent positives and negatives. A total of ten systems were reviewed and were otherwise negative. Past Medical & Surgical Medical Problems: (1) Joyce's esophagus (2) C. 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 Social History Problems: (1) Alcohol abuse Family History FH: CAD (coronary artery disease) FATHER (LA, bypass) FHx: heart disease SISTER (atrial septal defect) Hypertension FATHER MOTHER Stroke FATHER TIAs FATHER Social History Smoking Status: Current Every Day Smoker Alcohol Use: occasionally Drug Use: none Marital Status: single Housing Status: lives alone Occupation Status: disabled Current/Historical Medications Scheduled Ascorbic Acid (Ascorbic Acid), 500 MG PO DAILY Calcium Carbonate-Cholecalcife (Calcium 500 +D), 1 TAB PO BID Home O2 Therapy (Oxygen), 3 LITERS NA HS Metoprolol Succ (Toprol Xl) (Toprol-Xl ), 100 MG PO QAM Pantoprazole (Protonix), 40 MG PO QAM Paroxetine HCl (Paroxetine), 40 MG PO DAILY Scheduled PRN Albuterol Hfa (Ventolin Hfa), 2 PUFFS INH QID PRN for Shortness of Breath Oxycodone/Acetaminophen 10MG/325MG (Percocet 10MG/325MG), 1 TAB PO Q6 PRN for Pain Zolpidem Tartrate (Ambien), 10 MG PO HS PRN for Sleep Allergies Coded Allergies: Shellfish (Verified Allergy, Severe, SOB & SWOLLEN GLANDS FROM SHELLFISH, 10/03/17) Onion (Verified Allergy, Unknown, RASH AND GI UPSET, 10/03/17) Captopril (Verified Adverse Reaction, Intermediate, "felt bad", 10/03/17) Codeine (Verified Adverse Reaction, Unknown, nausea; nightmares, 10/03/17) Physical Exam Vital Signs Date Time Temp Pulse Resp B/P (MAP) Pulse Ox O2 Delivery O2 Flow Rate FiO2 10/03/17 15:52 82 16 118/66 96 Nasal Cannula 2.0 10/03/17 15:40 78 20 96 Nasal Cannula 2.0 10/03/17 14:17 93 Nasal Cannula 2.0 10/03/17 14:13 91 Room Air 10/03/17 14:11 91 24 135/73 91 Room Air 10/03/17 14:03 36.5 10/03/17 13:55 94 2/7/18 13:50 99 24 110/77 10/03/17 13:41 102 24 91 Room Air Physical Exam Physical Exam GENERAL: He is oriented to person, place, and time. He appears well-developed and well-nourished. He does not appear distressed. HENT: Exam performed. Head: Normocephalic and atraumatic. Right Ear: External ear normal. No mastoid tenderness. Left Ear: External ear normal. No mastoid tenderness. Mouth/Throat: The oropharynx is clear and moist. No trismus in the jaw. No dental abscesses or uvula swelling. No oropharyngeal exudate or tonsillar abscesses. EYES: Conjunctivae and EOM are normal. Pupils are equal, round, and reactive to light. Right eye exhibits no discharge. Left eye exhibits no discharge. No scleral icterus. NECK: Normal range of motion. Neck supple. No JVD present. No spinous process tenderness present. No carotid bruit present. No rigidity. No tracheal deviation and normal range of motion present. No Brudzinski's sign and no Kernig 's sign noted. CV: Normal rate, regular rhythm, normal heart sounds and intact distal pulses. There is no peripheral edema. Palpable radial pulses bue. PULM/CHEST: Effort normal. No respiratory distress. No stridor. Rhonchi bilaterally, scattered expiratory wheezes. He has no rales. Chest Wall: He exhibits no tenderness. ABD: The abdomen is soft. Bowel sounds are normal. He has no distension. No mass is present. There is no tenderness. There is no rebound, no guarding, no Torres's sign and no tenderness at McBurney's point. Rovsig negative RECTAL: Hemeoccult negative. No melena or bright red blood per rectum MUSC/SKEL: Normal range of motion. There is no peripheral edema, tenderness or deformity. LYMPH: No cervical adenopathy. NEURO: He is alert and oriented to person, place, and time. He has normal strength. No cranial nerve deficit or sensory deficit. Coordination and gait normal. GCS eye subscore is 4. GCS verbal subscore is 5. GCS motor subscore is 6. cerbellar tests wnl. SKIN: Skin is pale with multiple lesions over his bilateral upper extremities that appear like possible skin popping. Skin is warm and dry. He is not diaphoretic. PSYCH: He has a normal mood and affect. His behavior is normal. Judgment and thought content normal. Medical Decision & Procedures ER Provider Diagnostic Interpretation: Radiology results as stated below per my review and radiologist interpretation: CHEST ONE VIEW PORTABLE CLINICAL HISTORY: Atypical chest pain. Disorientation. COMPARISON STUDY: 08/31/2017 FINDINGS: The study is rotated. The heart is mildly enlarged. There is radiographic evidence of emphysema. There is basilar interstitial thickening similar to the prior study. There is no lobar consolidation.[ IMPRESSION: Emphysema and basilar interstitial thickening similar to the prior study. No evidence of lobar consolidation Electronically signed by: Martinez Garcia M.D. 10/03/2017 2:19 PM Dictated Date/Time: 10/03/2017 2:18 PM Laboratory Results 10/03/17 14:04 Red Blood Count 3.47, Mean Corpuscular Volume 75.2, Mean Corpuscular Hemoglobin 21.3, Mean Corpuscular Hemoglobin Concent 28.4, Mean Platelet Volume 8.9, Neutrophils (%) (Auto) 57.5, Lymphocytes (%) (Auto) 26.0, Monocytes (%) (Auto) 14.9, Eosinophils (%) (Auto) 0.9, Basophils (%) (Auto) 0.4, Neutrophils # (Auto ) 5.36, Lymphocytes # (Auto) 2.43, Monocytes # (Auto) 1.39, Eosinophils # (Auto ) 0.08, Basophils # (Auto) 0.04 10/03/17 14:04 Test 10/03/17 14:04 10/03/17 14:05 White Blood Count 9.33 K/uL (4.8-10.8) Red Blood Count 3.47 M/uL (4.7-6.1) Hemoglobin 7.4 g/dL (14.0-18.0) Hematocrit 26.1 % (42-52) Mean Corpuscular Volume 75.2 fL (80-100) Mean Corpuscular Hemoglobin 21.3 pg (25-34) Mean Corpuscular Hemoglobin Concent 28.4 g/dl (32-36) Platelet Count 284 K/uL (130-400) Mean Platelet Volume 8.9 fL (7.4-10.4) Neutrophils (%) (Auto) 57.5 % Lymphocytes (%) (Auto) 26.0 % Monocytes (%) (Auto) 14.9 % Eosinophils (%) (Auto) 0.9 % Basophils (%) (Auto) 0.4 % Neutrophils # (Auto) 5.36 K/uL (1.4-6.5) Lymphocytes # (Auto) 2.43 K/uL (1.2-3.4) Monocytes # (Auto) 1.39 K/uL (0.11-0.59) Eosinophils # (Auto) 0.08 K/uL (0-0.5) Basophils # (Auto) 0.04 K/uL (0-0.2) RDW Standard Deviation 50.9 fL (36.4-46.3) RDW Coefficient of Variation 18.6 % (11.5-14.5) Immature Granulocyte % (Auto) 0.3 % Immature Granulocyte # (Auto) 0.03 K/uL (0.00-0.02) Nucleated RBC Absolute Count (auto) 0.20 K/uL (0-0) Nucleated Red Blood Cells % 2.1 % Polychromasia 1+ Hypochromasia PRESENT Anisocytosis PRESENT Microcytosis PRESENT Anion Gap 15.0 mmol/L (3-11) Estimated GFR () 48.7 Estimated GFR (Non- 42.0 BUN/Creatinine Ratio 16.3 (10-20) Calcium Level 8.5 mg/dl (8.5-10.1) Troponin I < 0.015 ng/ml (0-0.045) Pro-B-Type Natriuretic Peptide 8971 pg/ml (0-900) Influenza Type A Antigen Neg for Influ A (NEG) Influenza Type B Antigen Neg for Influ B (NEG) Laboratory results reviewed by me. Medications Administered Medications (Trade) Dose Ordered Sig/Tyree Route Start Time Stop Time Status Last Admin Dose Admin Aspirin (Aspirin Chew) 324 mg NOW STAT PO 10/03/17 13:53 10/03/17 13:54 DC 10/03/17 14:09 324 MG Albuterol/ Ipratropium (Duoneb) 3 ml NOW STAT INH 10/03/17 13:54 10/03/17 13:55 DC 10/03/17 14:08 3 ML Prednisone (PredniSONE TAB) 60 mg NOW STAT PO 10/03/17 13:54 10/03/17 13:55 DC 10/03/17 14:09 60 MG Hydromorphone HCl (Dilaudid Inj) 1 mg NOW STAT IV 10/03/17 15:42 10/03/17 15:43 DC 10/03/17 15:48 1 MG ECG Indication: SOB/dyspnea Rate (beats per minute): 95 Rhythm: normal sinus Findings: no acute ischemic change, no ectopy, other (MT interval 96; QRS and QTC WNL; no ST depression or elevation) Change: Patient's electrocardiogram was interpreted by me. ED Course EMR reviewed: he had an echo done in May 2017 which showed EF of 55-60% with moderate aortic valve sclerosis. 1346: The patient was evaluated in room A10. A complete history and physical exam was performed. 1353: Aspirin 324 mg PO 1354: Prednisone 60 mg PO, Duoneb 3 ml INH 1448: I reassessed the patient at this time. I performed a rectal examination. Please see above PE for my findings. He is breathing better after the Duoneb. I discussed the results and treatment plan with the patient. I consented him for a blood transfusion given that he had a witnessed syncopal episode and a low hemoglobin. I answered all pertaining questions that he had. He expressed understanding and verbalized agreement. The patient will be evaluated for further management. 1542: Dilaudid 1 mg IV 1547: I spoke with ROSSY Lay. We discussed the patient's case. She knows the patient well and agrees that he should be transfused. The patient will be evaluated by the [facility] for further management. They will transfuse him and keep an eye on his breathing symptoms to make sure that he does not got into pulmonary edema. Medical Decision Vital signs stable. Patient's hemoglobin is 7.4, lower than baseline. Patient' s proBNP is elevated. Patient felt better breathing lara after receiving breathing treatment and steroids. Troponin negative. Chest x-ray shows no acute infiltrate or acute process. Patient was consented for blood transfusion given his witnessed syncopal episode and his low hemoglobin. Hemoccult was negative. No evidence of GI bleeding. Patient reports no hematuria. Discussed the case with the hospitalist team who agrees that the patient should be transfused given his witnessed syncopal episode. 1 unit packed red blood cells transfused. Hospitalist team will continue to monitor patient for any sort of respiratory distress given his elevated pro BNP and respiratory issues which could be due to CHF. Medication Reconcilliation Current Medication List: was personally reviewed by me Blood Pressure Screening Patient's blood pressure: Normal blood pressure Consults Time Called: 1529 Consulting Physician: ROSSY Lay Returned Call: 1545 I spoke with ROSSY Lay. We discussed the patient's case. She knows the patient well and agrees that he should be transfused. [facility] They will transfuse him and keep an eye on his breathing symptoms to make sure that he does not got into pulmonary edema. Impression Primary Impression: Symptomatic anemia Additional Impressions: COPD (chronic obstructive pulmonary disease) CHF (congestive heart failure) Critical Care I have personally spent greater than 55 minutes of critical care time in the direct management of this patient. This includes bedside care, interpretation of diagnostic studies, and testing, discussion with consultants, patient, and family members, and other required patient management activities. This 55 minutes is in excess of all separately billable procedures. Scribe Attestation The scribe's documentation has been prepared under my direction and personally reviewed by me in its entirety. I confirm that the note above accurately reflects all work, treatment, procedures, and medical decision making performed by me. The scribe's documentation has been prepared under my direction and personally reviewed by me in its entirety. I confirm that the note above accurately reflects all work, treatment, procedures, and medical decision making performed by me. Departure Information Dispostion Being Evaluated By Hospitalist Referrals Zach Monroy M.D. (PCP) Patient Instructions My [facility] Problem Qualifiers
--- NOTE | 2017-10-03 14:21 | DIAGNOSTIC IMAGING REPORT ---
CHEST ONE VIEW PORTABLE CLINICAL HISTORY: Atypical chest pain. Disorientation. COMPARISON STUDY: 08/31/2017 FINDINGS: The study is rotated. The heart is mildly enlarged. There is radiographic evidence of emphysema. There is basilar interstitial thickening similar to the prior study. There is no lobar consolidation.[ IMPRESSION: Emphysema and basilar interstitial thickening similar to the prior study. No evidence of lobar consolidation Electronically signed by: Martinez Garcia M.D. 10/03/2017 2:19 PM Dictated Date/Time: 10/03/2017 2:18 PM
[2017-10-03 14:30] LABS: HEMATOCRIT 26.1 % (42-52); HEMOGLOBIN 7.4 g/dL (14.0-18.0); MEAN CELL VOLUME 75.2 fL (80-100); MEAN CORPUSCULAR HEMOGLOBIN 21.3 pg (25-34); MEAN CORPUSCULAR HGB CONC 28.4 g/dl (32-36); MEAN PLATELET VOLUME 8.9 fL (7.4-10.4); PLATELET COUNT 284 K/uL (130-400); RED CELL DISTRIBUTION WIDTH CV 18.6 % (11.5-14.5); RED CELL DISTRIBUTION WIDTH SD 50.9 fL (36.4-46.3); WHITE BLOOD COUNT 9.33 K/uL (4.8-10.8)
[2017-10-03 14:39] LABS: BLOOD UREA NITROGEN 28 mg/dl (7-18); CALCIUM 8.5 mg/dl (8.5-10.1); CARBON DIOXIDE 21 mmol/L (21-32); GLUCOSE 123 mg/dl (70-99); POTASSIUM 4.9 mmol/L (3.5-5.1); SODIUM 132 mmol/L (136-145)
[2017-10-03] MEDS ORDERED: OXYC-106 PO (14:43)
[2017-10-03 14:46] LABS: INFLUENZA B ANTIGEN Neg for Influ B (NEG)
[2017-10-03 14:46] LABS: BASO % 0.4 %; BASO ABS # 0.04 K/uL (0-0.2); EOS % 0.9 %; EOS ABS # 0.08 K/uL (0-0.5); IG# 0.03 K/uL (0.00-0.02); LYMPH ABS # 2.43 K/uL (1.2-3.4); MONO % 14.9 %; MONO ABS # 1.39 K/uL (0.11-0.59); NEUT % 57.5 %; NEUT ABS # 5.36 K/uL (1.4-6.5)
[2017-10-03] MEDS ORDERED: HYDROmorphone INJ 1 MG/ML SYR IV STA (15:42)
[2017-10-03] MEDS ORDERED: ACETAMINOPHEN 325 MG TAB PO PRN (16:30)
[2017-10-03] MEDS ORDERED: ONDANSETRON INJ 2 MG/ML 2 ML VIAL IV PRN (16:30)
[2017-10-03] MEDS ORDERED: AZITHROMYCIN 250 MG TAB PO STA (16:57)
[2017-10-03] MEDS ORDERED: ALBUT/IPRATROP 3MG/0.5MG NEB 3 ML VIAL INH PRN (17:00)
[2017-10-03] MEDS ORDERED: TRMO115 TOP (17:25)
[2017-10-03] MEDS ORDERED: FLUT1INH INH (18:34)
[2017-10-03] MEDS ORDERED: ERGO500037 PO (18:34)
--- NOTE | 2017-10-03 18:37 | History and Physical ---
History & Physical Date & Time of Service: Oct 03, 2017 ~ 16:00 Chief Complaint: Shortness of Breath, Weakness, Syncope Primary Care Physician: Zach Monroy M.D. History of Present Illness Source: patient 61 year old male who presents to the ED with shortness of breath, weakness, and a syncopal event. Patient was recently admitted to [facility] 09/10 - 09/09 for acute blood loss anemia due to GI bleed. He underwent EGD on 09/04 which showed a non bleeding gastric ulcer and Joyce's esophagus. Patient reports that over the past one week he has noticed increased generalized weakness. Yesterday he reports he developed shortness of breath with exertion as well as chest pressure. Symptoms improved with rest. Today while walking to his friends car he became extremely short of breath. He reports the next thing he remembers is waking up coming into the ED. He reports his friend told him he went unresponsive however was still breathing. Patient reports his stools have been dark for a long time, he denies any recent changes. No diarrhea or BRBPR. He had one episode of vomiting a couple of days ago. No hematemesis or coffee ground emesis. He has chronic LLQ abdominal pain which is unchanged as well. A couple of days ago, his voice started to become hoarse. He reports minimal dry cough. No fevers or chills. In the ED, hgb is found to be 7.4. Vitals are stable. Past Medical/Surgical History Medical Problems: (1) Jocye's esophagus Status: Chronic (2) C. difficile colitis Status: Resolved (3) Chronic neck pain Status: Chronic (4) Compression fracture Permanent Comment: T12 09/07/17 Status: Chronic (5) COPD (chronic obstructive pulmonary disease) Status: Chronic (6) Depression Status: Chronic (7) History of adenomatous polyp of colon Status: Chronic (8) History of Joyce's esophagus Status: Chronic (9) History of basal cell carcinoma Status: Chronic (10) History of Meckel's diverticulum Status: Chronic (11) History of suicide attempt Status: Chronic (12) HTN (hypertension) Status: Chronic (13) Hx of skin graft Permanent Comment: 2015 -nose for basal cell carcinoma Status: Resolved (14) Renal cyst Status: Chronic (15) Vitamin D deficiency Status: Chronic Surgical Problems: (1) H/O hernia repair Status: Chronic (2) History of appendectomy Status: Chronic (3) History of colon resection Permanent Comment: for Meckel's Diverticulum repair Status: Chronic (4) History of esophagogastroduodenoscopy (EGD) Permanent Comment: 09/04/17 - non bleeding gastric ulcer, Joyce's esophagus Status: Chronic (5) Hx of cardiac cath Permanent Comment: 03/2014 - normal Status: Chronic (6) 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 Family History FH: CAD (coronary artery disease) FATHER ([place], bypass) FHx: heart disease SISTER (atrial septal defect) Hypertension FATHER MOTHER Stroke FATHER TIAs FATHER Social History Smoking Status: Current Every Day Smoker Alcohol Use: none Immunizations History of Influenza Vaccine: Yes Influenza Vaccine Date: May 27, 2017 History of Tetanus Vaccine?: Yes Tetanus Immunization Date: Mar 26, 2014 History of Pneumococcal: Yes Pneumococcal Date: Apr 07, 2014 Allergies Coded Allergies: Shellfish (Verified Allergy, Severe, SOB & SWOLLEN GLANDS FROM SHELLFISH, 10/03/17) Onion (Verified Allergy, Unknown, RASH AND GI UPSET, 10/03/17) Captopril (Verified Adverse Reaction, Intermediate, "felt bad", 10/03/17) Codeine (Verified Adverse Reaction, Unknown, nausea; nightmares, 10/03/17) Home Medications Scheduled Ascorbic Acid (Ascorbic Acid), 500 MG PO DAILY Calcium Carbonate-Cholecalcife (Calcium 500 +D), 1 TAB PO BID Ergocalciferol (Vitamin D 23500 Unit), 50,000 UNIT PO WK Fluticasone Furoate-Vilanterol (Breo Ellipta), 1 INHA INH DAILY Home O2 Therapy (Oxygen), 3 LITERS NA HS Metoprolol Succ (Toprol Xl) (Toprol-Xl ), 100 MG PO QAM Pantoprazole (Protonix), 40 MG PO QAM Paroxetine HCl (Paroxetine), 40 MG PO DAILY Triamcinolone Acet (Triamcinolone Acetonide), 1 APPLN TOP BID Scheduled PRN Albuterol Hfa (Ventolin Hfa), 2 PUFFS INH QID PRN for Shortness of Breath Oxycodone/Acetaminophen 10MG/325MG (Percocet 10MG/325MG), 1 TAB PO Q6 PRN for Pain Zolpidem Tartrate (Ambien), 10 MG PO HS PRN for Sleep Review of Systems ROS per HPI, all other systems reviewed and negative Physical Exam Vital Signs Date Time Temp Pulse Resp B/P (MAP) Pulse Ox O2 Delivery O2 Flow Rate FiO2 10/03/17 17:28 36.4 83 20 153/94 96 10/03/17 15:52 82 16 118/66 96 Nasal Cannula 2.0 10/03/17 15:40 78 20 96 Nasal Cannula 2.0 10/03/17 14:17 93 Nasal Cannula 2.0 10/03/17 14:13 91 Room Air 10/03/17 14:11 91 24 135/73 91 Room Air 10/03/17 14:03 36.5 10/03/17 13:55 94 10/03/17 13:50 99 24 110/77 10/03/17 13:41 102 24 91 Room Air General Appearance: WD/WN, + mild distress Head: normocephalic, atraumatic Eyes: normal inspection, EOMI, sclerae normal ENT: hearing grossly normal, + pertinent finding (mucous membranes dty) Neck: supple, no JVD, trachea midline Respiratory/Chest: no respiratory distress, + wheezing (expiratory, scattered throughout all lung lino), + pertinent finding (coarse breath sounds BL) Cardiovascular: regular rate, rhythm, normal peripheral pulses, + pertinent finding (+1-2 edema BLLE) Abdomen/GI: normal bowel sounds, soft, no organomegaly, + tenderness (LLQ, chronic per patient) Extremities/Musculoskelatal: normal inspection, no calf tenderness, normal capillary refill Neurologic/Psych: no motor/sensory deficits, alert, normal mood/affect, oriented x 3 Skin: + pertinent finding (scattered dried, scabbed over lesions noted over BLUE and upper back) Diagnostics Laboratory Results Results Past 24 Hours Test 10/03/17 14:04 10/03/17 14:05 10/03/17 16:49 Range/Units White Blood Count 9.33 4.8-10.8 K/uL Red Blood Count 3.47 4.7-6.1 M/uL Hemoglobin 7.4 14.0-18.0 g/dL Hematocrit 26.1 42-52 % Mean Corpuscular Volume 75.2 80-100 fL Mean Corpuscular Hemoglobin 21.3 25-34 pg Mean Corpuscular Hemoglobin Concent 28.4 32-36 g/dl Platelet Count 284 130-400 K/uL Mean Platelet Volume 8.9 7.4-10.4 fL Neutrophils (%) (Auto) 57.5 % Lymphocytes (%) (Auto) 26.0 % Monocytes (%) (Auto) 14.9 % Eosinophils (%) (Auto) 0.9 % Basophils (%) (Auto) 0.4 % Neutrophils # (Auto) 5.36 1.4-6.5 K/uL Lymphocytes # (Auto) 2.43 1.2-3.4 K/uL Monocytes # (Auto) 1.39 0.11-0.59 K/uL Eosinophils # (Auto) 0.08 0-0.5 K/uL Basophils # (Auto) 0.04 0-0.2 K/uL RDW Standard Deviation 50.9 36.4-46.3 fL RDW Coefficient of Variation 18.6 11.5-14.5 % Immature Granulocyte % (Auto) 0.3 % Immature Granulocyte # (Auto) 0.03 0.00-0.02 K/uL Nucleated RBC Absolute Count (auto) 0.20 0-0 K/uL Nucleated Red Blood Cells % 2.1 % Polychromasia 1+ Hypochromasia PRESENT Anisocytosis PRESENT Microcytosis PRESENT Sodium Level 132 136-145 mmol/L Potassium Level 4.9 3.5-5.1 mmol/L Chloride Level 96 98-107 mmol/L Carbon Dioxide Level 21 21-32 mmol/L Anion Gap 15.0 3-11 mmol/L Blood Urea Nitrogen 28 7-18 mg/dl Creatinine 1.70 0.60-1.40 mg/dl Estimated GFR () 48.7 Estimated GFR (Non- 42.0 BUN/Creatinine Ratio 16.3 10-20 Random Glucose 123 70-99 mg/dl Calcium Level 8.5 8.5-10.1 mg/dl Troponin I < 0.015 0-0.045 ng/ml Pro-B-Type Natriuretic Peptide 8971 0-900 pg/ml Influenza Type A Antigen Neg for Influ A NEG Influenza Type B Antigen Neg for Influ B NEG Transferrin % Saturation 20-50 % Diagnostic Radiology CXR IMPRESSION: Emphysema and basilar interstitial thickening similar to the prior study. No evidence of lobar consolidation Impression Assessment and Plan SYMPTOMATIC ANEMIA - admit to tele - patient presenting with exertional chest pain, shortness of breath, and syncope; in the ED, found to have hgb 7.4 - symptoms likely due to symptomatic anemia - initial troponin negative, EKG without acute ST changes; will continue to cycle cardiac enzymes - recent admission to [facility] 08/31 - 09/09 for anemia due to GI bleed; underwent EGD on 09/04 that showed non bleeding gastric ulcer and Joyce's esophagus; noted negative biopsies - hgb on 09/09 was 8.9 - suspect recurrent bleeding ulcer and/or slow GI bleed - also noted patient was only taking Protonix daily since discharge instead of BID and has not been taking the iron supplements as prescribed - IV PPI BID - check iron studies - clear liquids, NPO after midnight - GI consult GABY - creat 1.7 - likely prerenal - gentle IVF due to lower extremity edema - monitor renal functions, avoid nephrotoxic agents when able BRONCHITIS, MILD COPD EXACERBATION - nebs, empiric Azithromycin - would like to avoid steroids due to gastric ulcers - rapid flu negative HTN - BP controlled, continue metoprolol LOWER EXTREMITY EDEMA - chronic - monitor while receiving IVF - unremarkable echo 05/2017 ANXIETY - continue paroxetine DVT PROPHYLAXIS - SCDs due to anemia, GI Bleed DISPO - In my clinical judgment this beneficiary meets acute admission criteria, established by [facility], that includes being hospitalized through two midnights. Attending Note: Patient is a 61 yr male with PMH of COPD, Joyce's Esophagus, chronic anemia, anxiety, c.diff colitis and other problems presents with history of SOB, chest pain and a syncopal episode which he believes to having a panic attack. Patient is a poor historian. Patient was brought by his friend to ED after noticing him to be unresponsive. Reports vomiting 2 days ago and completed a course of antibiotic for C.diff recently. Physical Exam: General Appearance:Moderately built and nourished, no apparent distress Head: normocephalic, Atraumatic, oral mucosa is dry Eyes: normal inspection, EOMI, PERRLA, Anicteric Neck: supple, Trachea midline Respiratory/Chest: Decreased breath sounds, B/L Wheezing/Rhonchi, No accessory muscle use Cardiovascular: S1, S2, No murmur Abdomen/GI:Soft, Non tender, Bowel sounds present Extremities/Musculoskelatal:normal inspection, 1-2 + b/l edema Neurologic/Psych:AAOX3, grossly no focal neurological deficits Skin:normal color,warm: Multiple lesions on UE which patient attributes to Eczema Assessment and Plan: Syncope: Could be multifactorial: Symptomatic anemia/Dehydration ?Vasovagal secondary to Panic attack Microcytic anemia per labs No bleeding issues Gentle IV fluids Transfuse 1 unit PRBC Monitor in Tele Trend Troponin Consider ECHO FOBT negative Neuro checks No focal deficits on exam, denies head trauma/Fall Consider CT head if clinically necessary GABY: Likely prerenal Avoid NSAIDs IV fluids monitor renal function Bronchitis/Mild COPD Exacerbation: Nebs, Pulmicort Azithromycin Oxygen PRN Avoid Prednisone and Solumedrol given PUD/Joyce's I personally reviewed the record. Patient is interviewed and examined at bedside. Patient's care is coordinated with Emma Barrett AREA FIELD MANAGER. Please refer to the documentation above for details of patient's presentation and for discussion of other issues. VTE Prophylaxis VTE Risk Assessment Done? Y/N: Yes Risk Level: Moderate
[2017-10-03] MEDS: ALBUT/IPRATROP 3MG/0.5MG NEB 3 ML VIAL INH SCH (20:00)
[2017-10-03] MEDS: CALCIUM 600MG + VIT D 400 IU TAB PO SCH (20:15)
[2017-10-03] MEDS: FLUTICASONE/SALMETEROL 250/50 (ADVAIR) 14 PUFF/1 INHALER INH SCH (20:15)
[2017-10-03] MEDS: OXYCODONE/ACETAMINOPHEN 10/325MG TAB PO PRN (20:16)
[2017-10-03] MEDS: SODIUM CHLORIDE 0.9% 1000ML 1,000 ML IV SCH (21:21)
[2017-10-03] MEDS: PANTOprazole INJ 40 MG in SYRINGE 0 ML IV SCH ×2 (21:21→23:58)
[2017-10-03 22:26] LABS: TRANSFERRIN 369 mg/dl (200-360)
[2017-10-04] VITALS (15 sets, daily range): BP systolic 113–149; BP diastolic 67–89; PULSE 56–89; TEMP 36.4–36.9; O2SAT 91–99
[2017-10-04] MEDS: ZOLPIDEM TARTRATE 10 MG TAB PO PRN ×2 (00:24→23:03)
[2017-10-04] MEDS: ALBUT/IPRATROP 3MG/0.5MG NEB 3 ML VIAL INH SCH ×5 (02:01→19:42)
[2017-10-04] MEDS: SODIUM CHLORIDE 0.9% 1000ML 1,000 ML IV SCH ×2 (05:20→17:17)
[2017-10-04 07:45] LABS: CALCIUM 8.8 mg/dl (8.5-10.1); CREATININE 1.19 mg/dl (0.60-1.40); POTASSIUM 4.4 mmol/L (3.5-5.1)
[2017-10-04] MEDS: BUDESONIDE 0.5 MG/2 ML VIAL (PULMICORT) INH SCH ×2 (08:00→19:43)
[2017-10-04 08:04] LABS: HEMATOCRIT 26.9 % (42-52); MEAN CELL VOLUME 75.8 fL (80-100); MEAN CORPUSCULAR HEMOGLOBIN 22.5 pg (25-34); MEAN CORPUSCULAR HGB CONC 29.7 g/dl (32-36); MEAN PLATELET VOLUME 8.6 fL (7.4-10.4); NUCLEATED RED BLOOD CELL ABS 0.17 K/uL (0-0); PLATELET COUNT 178 K/uL (130-400); RED CELL DISTRIBUTION WIDTH CV 18.5 % (11.5-14.5); RED CELL DISTRIBUTION WIDTH SD 51.6 fL (36.4-46.3); WHITE BLOOD COUNT 3.24 K/uL (4.8-10.8)
[2017-10-04] MEDS: METOPROLOL SUCC 50MG EXT REL TAB PO SCH (08:27)
[2017-10-04] MEDS: CALCIUM 600MG + VIT D 400 IU TAB PO SCH ×2 (08:27→20:55)
[2017-10-04] MEDS: FERROUS SULFATE 325 MG TAB PO SCH ×2 (08:27→17:16)
[2017-10-04] MEDS: AZITHROMYCIN 250 MG TAB PO SCH (08:27)
[2017-10-04] MEDS: FLUTICASONE/SALMETEROL 250/50 (ADVAIR) 14 PUFF/1 INHALER INH SCH ×2 (08:28→20:56)
[2017-10-04] MEDS: ASCORBIC ACID 500 MG TAB PO SCH (08:28)
[2017-10-04] MEDS: PANTOprazole INJ 40 MG in SYRINGE 0 ML IV SCH ×2 (08:28→20:56)
[2017-10-04] MEDS: PAROXETINE 20 MG TAB PO SCH (08:28)
[2017-10-04] MEDS: OXYCODONE/ACETAMINOPHEN 10/325MG TAB PO PRN ×3 (08:29→23:04)
[2017-10-04] MEDS ORDERED: HYDROmorphone INJ 1 MG/ML SYR IV STA ×2 (09:19→15:03)
--- NOTE | 2017-10-04 12:04 | Gastrointestinal Consultation ---
Gastrointestinal Consultation Date of Consultation: Oct 04, 2017 Attending Physician: Stephane Jaramillo Consulting Physician: Roman Robert Reason for Consultation: Anemia ? recurrent GI bleeding History of Present Illness Patient is a 61 year old male seen for anemia, possible recurrent GI bleeding. He was taken to ED by friend yesterday after a syncopal episode. Said was having SOB, felt weak when waking to friend's care and next thing remember was waking up in ED. Friend witnessed pt becoming unresponsive but still breathing. Upon eval in ED, he was noted to be anemic, H/H 7.4. Iron studies showed severe iron deficiency anemia Fe 8, % sat 2, normal FA and B12 levels. He's not on iron supplements at home. Was given 1U PRBC overnight H/H improved to .9. EKG and Troponin unremarkable. Pt has chronic low back pain, requesting for Dilaudid this AM. He reports also having LLQ area abd pain. + N/V, several days ago. Reported coffee ground appearing material in emesis but no mauri blood. He has hx of Cdiff and completed Vancomycin. Stools had been solid but on darker brown color. Rectal exam in ED with negative hemoccult and no signs of rectal bleeding. He has hx of Joyce's esophagus, and most recently had EGD on 09/04/17 during his last admission for melena. Noted then to have superficial non bleeding Pratik gastric ulcer, Joyce's, erosions and erythematous stomach. Bx negative for Hpylori. His last colonoscopy was in 2016 - diverticulosis, internal hemorrhoids , adenomatous and hyperplastic polyps. Past Medical/Surgical History Medical Problems: (1) Chest pain Status: Acute (2) COPD (chronic obstructive pulmonary disease) Status: Chronic (3) Dehydration Status: Acute (4) Fall Status: Acute (5) Fracture of rib of right side Status: Acute (6) Laceration of right forearm Status: Acute (7) Multiple fractures of ribs, right side, initial encounter forclosed fracture Status: Acute (8) Postoperative wound dehiscence Status: Acute (9) SOB (shortness of breath) Status: Acute (10) Vomiting Status: Acute Past Medical History: Past Medical/Surgical History Medical Problems: (1) Joyce's esophagus Status: Chronic (2) C. difficile colitis Status: Resolved (3) Chronic neck pain Status: Chronic (4) Compression fracture Permanent Comment: T12 09/07/17 Status: Chronic (5) COPD (chronic obstructive pulmonary disease) Status: Chronic (6) Depression Status: Chronic (7) History of adenomatous polyp of colon Status: Chronic (8) History of Joyce's esophagus Status: Chronic (9) History of basal cell carcinoma Status: Chronic (10) History of Meckel's diverticulum Status: Chronic (11) History of suicide attempt Status: Chronic (12) HTN (hypertension) Status: Chronic (13) Hx of skin graft Permanent Comment: 2014 -nose for basal cell carcinoma Status: Resolved (14) Renal cyst Status: Chronic (15) Vitamin D deficiency Status: Chronic Surgical Problems: (1) H/O hernia repair Status: Chronic (2) History of appendectomy Status: Chronic (3) History of colon resection Permanent Comment: for Meckel's Diverticulum repair Status: Chronic (4) History of esophagogastroduodenoscopy (EGD) Permanent Comment: 09/04/17 - non bleeding gastric ulcer, Joyce's esophagus Status: Chronic (5) Hx of cardiac cath Permanent Comment: 03/2014 - normal Status: Chronic (6) 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 Family History FH: CAD (coronary artery disease) FATHER ([place], bypass) FHx: heart disease SISTER (atrial septal defect) Hypertension FATHER MOTHER Stroke FATHER TIAs FATHER Social History Smoking Status: Current Every Day Smoker Alcohol Use: occasionally Housing Status: lives alone Allergies Coded Allergies: Shellfish (Verified Allergy, Severe, SOB & SWOLLEN GLANDS FROM SHELLFISH, 10/03/17) Onion (Verified Allergy, Unknown, RASH AND GI UPSET, 10/03/17) Captopril (Verified Adverse Reaction, Intermediate, "felt bad", 10/03/17) Codeine (Verified Adverse Reaction, Unknown, nausea; nightmares, 10/03/17) Current Medications Home Meds and Scripts Medications Dose Route/Sig Max Daily Dose Days Date Category Dose Instructions Breo Ellipta (Fluticasone Furoate-Vilanterol) 1 Inh Inh 1 Inha INH DAILY 10/03/17 Reported Vitamin D 09630 Unit (Ergocalciferol) 50,000 Unit Cap 50,000 Unit PO WK 10/03/17 Reported Triamcinolone Acetonide (Triamcinolone Acet) 45 Appln/15 Gm Oint 1 Appln TOP BID 30 10/03/17 Reported Percocet 10MG/325MG (Oxycodone/Acetaminophen) Tab 1 Tab PO Q6 PRN 10/03/17 Reported Calcium 500 +D (Calcium Carbonate-Cholecalcife) 1 Tab Tab 1 Tab PO BID 09/09/17 Rx Ascorbic Acid 500 Mg Tab 500 Mg PO DAILY 09/09/17 Rx Take at lunch time with ferrous sulfate (iron). Paroxetine (Paroxetine HCl) 40 Mg Tab 40 Mg PO DAILY 09/09/17 Reported Ventolin Hfa (Albuterol) 200 Puffs/78639 Mcg Aers 2 Puffs INH QID PRN 01/31/17 Reported Oxygen Gas 3 Liters NA HS 09/12/16 Reported Protonix (Pantoprazole Sodium) 40 Mg Tab 40 Mg PO QAM 09/12/16 Reported Toprol-Xl (Metoprolol Succinate) 100 Mg Tabcr 100 Mg PO QAM 09/17/15 Reported Ambien (Zolpidem Tartrate) 10 Mg Tab 10 Mg PO HS PRN 09/17/15 Reported Review of Systems Constitutional: No fever, No chills Respiratory: + shortness of breath Cardiac: No chest pain Abdomen: + see HPI, + pain (LLQ), + nausea, + vomiting Physical Exam Date Time Temp Pulse Resp B/P (MAP) Pulse Ox O2 Delivery O2 Flow Rate FiO2 10/04/17 11:35 80 98 Nasal Cannula 2.0 10/04/17 11:23 36.5 85 18 144/83 (103) 91 Nasal Cannula 2.0 10/04/17 08:00 99 Nasal Cannula 2.0 10/04/17 07:27 36.9 89 20 147/81 (103) 99 Nasal Cannula 2.0 10/04/17 07:13 84 91 Nasal Cannula 2.0 10/04/17 04:00 Nasal Cannula 3.0 10/04/17 02:02 84 97 Nasal Cannula 3.0 10/04/17 00:00 36.4 82 17 113/67 (82) 97 Nasal Cannula 2.0 10/04/17 00:00 Nasal Cannula 2.0 10/03/17 21:26 75 20 131/87 (102) 99 Room Air 10/03/17 20:45 36.3 79 18 105/71 91 2.0 10/03/17 20:00 99 Nasal Cannula 2.0 10/03/17 19:31 36.5 87 20 132/82 95 2.0 10/03/17 18:50 36.8 84 18 128/84 96 2.0 10/03/17 18:20 36.5 84 20 146/88 96 2.0 10/03/17 17:50 36.5 86 20 153/98 95 10/03/17 17:35 36.4 82 20 144/96 96 10/03/17 17:28 36.4 83 20 153/94 96 10/03/17 16:30 96 Nasal Cannula 2.0 10/03/17 15:52 82 16 118/66 96 Nasal Cannula 2.0 10/03/17 15:40 78 20 96 Nasal Cannula 2.0 10/03/17 14:17 93 Nasal Cannula 2.0 10/03/17 14:13 91 Room Air 10/03/17 14:11 91 24 135/73 91 Room Air 10/03/17 14:03 36.5 10/03/17 13:55 94 10/03/17 13:50 99 24 110/77 10/03/17 13:41 102 24 91 Room Air General Appearance: WD/WN, no apparent distress Eyes: normal inspection, PERRL, EOMI Neck: supple, no JVD, trachea midline Respiratory/Chest: no respiratory distress, no accessory muscle use, + rhonchi Cardiovascular: regular rate, rhythm, no gallop, no murmur Abdomen: normal bowel sounds, soft, + tenderness (LLQ) Extremities: normal inspection, no pedal edema, no calf tenderness Neurologic/Psych: alert, normal mood/affect, oriented x 3 Skin: normal color, no jaundice, no rash Laboratory Results Last 24 Hours Test 10/03/17 14:04 10/03/17 14:05 10/03/17 21:53 10/04/17 01:43 White Blood Count 9.33 K/uL Red Blood Count 3.47 M/uL Hemoglobin 7.4 g/dL Hematocrit 26.1 % Mean Corpuscular Volume 75.2 fL Mean Corpuscular Hemoglobin 21.3 pg Mean Corpuscular Hemoglobin Concent 28.4 g/dl Platelet Count 284 K/uL Mean Platelet Volume 8.9 fL Neutrophils (%) (Auto) 57.5 % Lymphocytes (%) (Auto) 26.0 % Monocytes (%) (Auto) 14.9 % Eosinophils (%) (Auto) 0.9 % Basophils (%) (Auto) 0.4 % Neutrophils # (Auto) 5.36 K/uL Lymphocytes # (Auto) 2.43 K/uL Monocytes # (Auto) 1.39 K/uL Eosinophils # (Auto) 0.08 K/uL Basophils # (Auto) 0.04 K/uL RDW Standard Deviation 50.9 fL RDW Coefficient of Variation 18.6 % Immature Granulocyte % (Auto) 0.3 % Immature Granulocyte # (Auto) 0.03 K/uL Nucleated RBC Absolute Count (auto) 0.20 K/uL Nucleated Red Blood Cells % 2.1 % Polychromasia 1+ Hypochromasia PRESENT Anisocytosis PRESENT Microcytosis PRESENT Sodium Level 132 mmol/L Potassium Level 4.9 mmol/L Chloride Level 96 mmol/L Carbon Dioxide Level 21 mmol/L Anion Gap 15.0 mmol/L Blood Urea Nitrogen 28 mg/dl Creatinine 1.70 mg/dl Estimated GFR () 48.7 Estimated GFR (Non- 42.0 BUN/Creatinine Ratio 16.3 Random Glucose 123 mg/dl Calcium Level 8.5 mg/dl Troponin I < 0.015 ng/ml < 0.015 ng/ml < 0.015 ng/ml Pro-B-Type Natriuretic Peptide 8971 pg/ml Influenza Type A Antigen Neg for Influ A Influenza Type B Antigen Neg for Influ B Iron Level 8 mcg/dl Total Iron Binding Capacity 504 mcg/dl Transferrin 369 mg/dl Transferrin % Saturation 2 % Vitamin B12 Level 266 pg/mL Folate 9.40 ng/mL Test 10/04/17 06:22 White Blood Count 3.24 K/uL Red Blood Count 3.55 M/uL Hemoglobin 8.0 g/dL Hematocrit 26.9 % Mean Corpuscular Volume 75.8 fL Mean Corpuscular Hemoglobin 22.5 pg Mean Corpuscular Hemoglobin Concent 29.7 g/dl RDW Standard Deviation 51.6 fL RDW Coefficient of Variation 18.5 % Platelet Count 178 K/uL Mean Platelet Volume 8.6 fL Nucleated RBC Absolute Count (auto) 0.17 K/uL Nucleated Red Blood Cells % 5.3 % Sodium Level 135 mmol/L Potassium Level 4.4 mmol/L Chloride Level 99 mmol/L Carbon Dioxide Level 26 mmol/L Anion Gap 10.0 mmol/L Blood Urea Nitrogen 21 mg/dl Creatinine 1.19 mg/dl Est Creatinine Clear Calc Drug Dose 68.7 ml/min Estimated GFR () 74.9 Estimated GFR (Non- 64.6 BUN/Creatinine Ratio 17.6 Random Glucose 109 mg/dl Calcium Level 8.8 mg/dl Impression Patient is a 61 year old male seen for symptomatic anemia and possible recurrent GI bleed. ? report of possible coffee ground emesis, c/o LLQ abd pain. No signs of melena now and he's heme negative for stool when checked in ED. He did have a hx of melena and had EGD 1 month ago showing Joyce's (known hx), gastritis w/o Hpylori on bx, and one superficial Pratik gastric ulcer lesion that's not bleeding. Last colonoscopy 2016 w diverticulosis, int hemorrhoids, adenomatous and hyperplastic polyps. He's chronically anemia, severe iron deficiency anemia and wasn't on iron supplements at home. He was on Protonix 40mg daily, and recently just completed Vancomycin for Cdiff. Stools solid per his report w/o rectal bleeding. Plan - Ok to try CL diet (pt felt nauseated still) - Protonix 40mg IV BID - KUB - No urgent indication to repeat EGD today. Will discuss case with Dr. Robert , given anemia, may consider repeat colonoscopy during his admission. Pt is quite reluctant for this procedure. Will touch base later in afternoon rounds. - > no indication to repeat EGD or colonoscopy. Will instead obtain small bowel study and celiac panel I performed a history and physical examination of the patient. I have discussed the patient's case, impression and plan with Zina BLAIR. Her note reflects my findings and plan. Check celiac panel and small bowel XR to complete luminal GI work up. If all is negative, consider repeat colonoscopy as out patient if bleeding continues. Roman Robert MD
--- NOTE | 2017-10-04 13:34 | DIAGNOSTIC IMAGING REPORT ---
KUB CLINICAL HISTORY: LLQ abd pain flank pain COMPARISON STUDY: 09/26/2015 FINDINGS: The soft tissues, psoas shadows, renal outlines and intestinal gas pattern appear normal. There is no evidence for bowel obstruction. No abnormal abdominal calcifications are seen. IMPRESSION: Normal study. The above report was generated using voice recognition software. It may contain grammatical, syntax or spelling errors. Electronically signed by: Raman Julio M.D. 10/04/2017 1:33 PM Dictated Date/Time: 10/04/2017 1:31 PM
[2017-10-04] MEDS ORDERED: SODIUM CHLORIDE 0.65% NA SOLN 45 ML (OCEAN) ONE (14:20)
[2017-10-04] MEDS ORDERED: NURSING VERBAL MED ORDER ONE (14:30)
[2017-10-04] MEDS ORDERED: SODIUM CHLORIDE 0.65% NA SOLN 45 ML (OCEAN) PRN (14:30)
--- NOTE | 2017-10-04 15:06 | ECHOCARDIOGRAM REPORT ---
*NOTICE TO RECEIVING LIBERTARIAN AGENCY This information is strictly Confidential and protected under [place] law. [place] law prohibits you from making any further disclosure of this information unless further disclosure is expressly permitted by the written consent of the person to whom it pertains or is authorized by law. A general authorization for the release of medical or other information is not sufficient for this purpose. Hospital accepts no responsibility if the information is made available to any other person, INCLUDING THE PATIENT. Interpretation Summary * Name: KIRBY GERMAN Study Date: 10/04/2017 01:24 PM BP: 144/83 mmHg * Patient Location: .[facility]\S\N275\S\2 HR: 80 * : 1955 (M/d/yyyy) Gender: Male Height: 67 in * Age: 61 yrs Ethnicity: [place] Weight: 194 lb * Ordering Physician: Stephane Jaramillo * Referring Physician: Self, Referred * Performed By: Elena Humphrey RDCS * * Reason For Study: Syncope * BSA: 2.0 m2 * The study was technically adequate. * -- Conclusions -- * The right ventricle is severely dilated. * The right ventricular systolic function is severely reduced. * Flattened septum is consistent with RV pressure/volume overload. * Left ventricular systolic function is normal. * The LV Ejection Fraction = 55-60%. * There is no significant tricuspid regurgitation and therefore Doppler assessment does not allow estimation of the pulmonary artery systolic pressure, however, the 2d findings are suggestive of pulmonary hypertension. * Compared to the images of the prior study dated 06/25/17, there has been interval development of severe right sided cardiac chamber enlargement with evidence of right ventricular pressure and volume overload, right ventricular strain pattern. * If clinical scenario is compatible, consider evaluation for acute pulmonary embolism. Procedure Details * A complete two-dimensional transthoracic echocardiogram was performed (2D, M-mode, Doppler and color flow Doppler). * Patient refused Definity to enhance ultrasound images. Left Ventricle * The left ventricle is normal in size. * There is mild concentric left ventricular hypertrophy. * Left ventricular systolic function is normal. * Ejection Fraction = 55-60%. * Flattened septum is consistent with RV pressure/volume overload. Right Ventricle * The right ventricle is severely dilated. * The right ventricular systolic function is severely reduced. Atria * The left atrial size is normal. * The right atrium is severely dilated. * There is no evidence of atrial septal defect, but resolution does not allow assessment for a patent foramen ovale. Mitral Valve * The mitral valve is normal. * There is no mitral valve stenosis. * Significant mitral regurgitation is absent. Tricuspid Valve * The tricuspid valve is normal. * There is no tricuspid stenosis. * Significant tricuspid regurgitation is absent. Aortic Valve * The aortic valve is trileaflet. * Aortic valve sclerosis moderate, without significant aortic valvular stenosis. * Aortic stenosis is absent. * There is no significant aortic regurgitation. Pulmonic Valve * The pulmonary valve is not well seen, but the Doppler examination is normal without significant regurgitation or stenosis. Great Vessels * The aortic root and proximal ascending aorta are normal sized. Pericardium/Pleural * There is no pericardial effusion. Great Vessels * Dilated inferior vena cava with reduced collapsability with sniff indicates an elevated right atrial pressure of 15 mmHg Left Ventricular Diastolic Function * Grade I diastolic dysfunction, (abnormal relaxation pattern). MMode 2D Measurements and Calculations IVSd 0.75 cm IVSs 1.1 cm LVIDd 4.4 cm LVIDs 3.2 cm LVPWd 0.78 cm LVPWs 1.4 cm IVS/LVPW 0.97 FS 26.7 % EDV(Teich) 88.4 ml ESV(Teich) 42.1 ml EF(Teich) 52.4 % EDV(cubed) 86.1 ml ESV(cubed) 33.9 ml EF(cubed) 60.7 % % IVS thick 45.5 % % LVPW thick 80.5 % LV mass(C)d 103.7 grams LV mass(C)dI 52.0 grams/m\S\2 LV mass(C)s 129.0 grams LV mass(C)sI 64.6 grams/m\S\2 SV(Teich) 46.4 ml SI(Teich) 23.2 ml/m\S\2 SV(cubed) 52.2 ml SI(cubed) 26.2 ml/m\S\2 Ao root diam 2.8 cm Ao root area 6.0 cm\S\2 ACS 1.5 cm LA dimension 3.2 cm LA/Ao 1.2 LVAd ap4 27.6 cm\S\2 LVLd ap4 7.7 cm EDV(MOD-sp4) 85.8 ml EDV(sp4-el) 83.5 ml LVAs ap4 18.2 cm\S\2 LVLs ap4 6.4 cm ESV(MOD-sp4) 48.3 ml ESV(sp4-el) 44.0 ml EF(MOD-sp4) 43.7 % EF(sp4-el) 47.3 % LVAd ap2 34.1 cm\S\2 LVLd ap2 8.0 cm EDV(MOD-sp2) 132.0 ml EDV(sp2-el) 123.3 ml LVAs ap2 20.2 cm\S\2 LVLs ap2 7.0 cm ESV(MOD-sp2) 53.7 ml ESV(sp2-el) 49.5 ml EF(MOD-sp2) 59.3 % EF(sp2-el) 59.9 % LVLd %diff 3.7 % EDV(MOD-bp) 106.0 ml LVLs %diff 8.8 % ESV(MOD-bp) 52.4 ml EF(MOD-bp) 50.5 % SV(MOD-sp4) 37.5 ml SI(MOD-sp4) 18.8 ml/m\S\2 SV(MOD-sp2) 78.3 ml SI(MOD-sp2) 39.2 ml/m\S\2 SV(MOD-bp) 53.6 ml SI(MOD-bp) 26.8 ml/m\S\2 SV(sp4-el) 39.5 ml SI(sp4-el) 19.8 ml/m\S\2 SV(sp2-el) 73.8 ml SI(sp2-el) 37.0 ml/m\S\2 Doppler Measurements and Calculations MV E max sherita 82.0 cm/sec MV A max sherita 105.7 cm/sec MV E/A 0.78 MV dec time 0.22 sec Ao V2 max 148.0 cm/sec Ao max PG 8.8 mmHg Ao max PG (full) 6.2 mmHg LV V1 max PG 2.6 mmHg LV V1 max 80.0 cm/sec PA V2 max 109.0 cm/sec PA max PG 4.9 mmHg
[2017-10-04] MEDS ORDERED: OPTIRAY 320 IV PRN (15:30)
[2017-10-04] MEDS ORDERED: HYDROmorphone INJ 1 MG/ML SYR IV PRN (15:30)
--- NOTE | 2017-10-04 16:28 | DIAGNOSTIC IMAGING REPORT ---
CT ANGIOGRAM OF THE CHEST CLINICAL HISTORY: Right heart strain seen by echocardiography. COMPARISON STUDY: Chest CT dated 07/26/2017 and 03/29/2015. Chest x-ray dated 10/03/2017. TECHNIQUE: Following the IV administration of 109 cc of Optiray 320, CT angiogram of the chest was performed from the upper abdomen to the thoracic inlet utilizing the pulmonary embolus protocol. Images are reviewed in the axial, sagittal, and coronal planes. 3-D MIPS images are created and assessed. IV contrast was administered without complication. A dose lowering technique was utilized adhering to the principles of ALARA. The examination is moderately degraded by motion artifact. CT DOSE: 635.06 mGy.cm FINDINGS: Thyroid: Atrophic. Thoracic aorta: There is atherosclerotic calcification of the thoracic aorta, which is normal in caliber and demonstrates standard 3-vessel arch anatomy. No dissection is seen. Pulmonary vasculature: The pulmonary trunk is normal in caliber. There are no filling defects identified in main or lobar pulmonary branches to suggest pulmonary embolus. Evaluation of the peripheral branches is severely degraded by motion artifact. Heart: The heart is enlarged and without pericardial effusion. Lungs and pleural spaces: Evaluation of the lung parenchyma is severely degraded by motion artifact. Advanced emphysema is again noted. Fibrosis/scarring is identified the right apex. Small pleural effusions are identified. Patchy foci of tree-in-bud nodularity are seen in the right upper lobe. This has significantly improved from 07/26/2017. Similar-appearing opacities are present at both lung bases, and this has worsened from 07/26/2017. Fluid/debris is noted in the lower lobe airways. The trachea and central airways are patent. Mediastinum: There are numerous subcentimeter mediastinal lymph nodes. These are not pathologically enlarged by size criteria. Sarah: Clear. Axillae: There is no axillary lymphadenopathy. Upper abdomen: A 7.4 cm cyst arises from the upper pole of the left kidney. A small hiatal hernia is noted. A 1.3 cm hypervascular lesion is seen in the liver image #35. This likely represents a flash filling hemangioma. A 1.7 cm cyst is seen in the right hepatic lobe. Skeletal structures: The skeletal structures are osteopenic. There are numerous healed right-sided rib fractures. Degenerative change and hyperkyphosis are noted in the thoracic spine. Numerous compression deformities are identified. No lytic or blastic bony lesions are seen. IMPRESSION: 1. Motion compromised examination. 2. There is no evidence of central pulmonary embolus in the main or lobar pulmonary arteries. Evaluation of the peripheral branches is severely degraded by motion artifact. 3. Cardiomegaly and advanced emphysema. 4. Small pleural effusions. 5. There are foci of tree-in-bud nodularity seen in the right upper lobe and at both lung bases. This has improved in the right upper lobe from 07/26/2017 and has worsened at the lung bases. The appearance suggests a chronic infectious/inflammatory pneumonitis. Clinical correlation will be essential. 6. Additional findings as above. Electronically signed by: Orlando Caldwell M.D. 10/04/2017 4:27 PM Dictated Date/Time: 10/04/2017 4:20 PM
--- NOTE | 2017-10-04 16:58 | DIAGNOSTIC IMAGING REPORT ---
CAROTID DOPPLER NECK ART CLINICAL HISTORY: 61 years-old Male presenting with syncope. TECHNIQUE: Real-time grayscale and color and spectral Doppler ultrasound imaging of the bilateral carotid arteries was performed. NASCET criteria was used in evaluating this study. COMPARISON: None. FINDINGS: Right: Common carotid: Atherosclerosis. Peak systolic velocity 56 cm/s. Internal carotid artery: Patent. Peak systolic velocity 54 cm/s. Systolic ratio: 1.0. External carotid artery: Patent. Peak systolic velocity 78 cm/s. Left: Common carotid: Atherosclerosis at the carotid bulb. Peak systolic velocity 74 cm/s. Internal carotid artery: Atherosclerosis of the proximal ICA. Peak systolic velocity 64 cm/s. Systolic ratio: 0.9. External carotid artery: Atherosclerosis. Peak systolic velocity 95 cm/s. Bilateral antegrade flow within the vertebral arteries. Reference ranges: Stenosis measurements are compared to reference velocity parameters. ICA peak systolic velocity (PSV) < 125 cm/s normal or indicating < 50% stenosis; ICA PSV 125-230 cm/s equivalent to 50-69% stenosis; ICA PSV > 230 cm/s equivalent to greater than or equal to 70% stenosis. ICA PSV to common carotid artery PSV ratio < 2 normal or < 50% stenosis; 2-4 equates to 50-69% stenosis, > 4 equates to greater than or equal to 70% stenosis. Normal ICA end-diastolic velocity less than 40. Blood pressure Brachial: Right: 141/78 mmHg, Left: 155/80 mmHg. IMPRESSION: 1. Atherosclerosis without hemodynamically significant stenosis seen within the carotid arteries. 2. Suggestion of systemic hypertension. Electronically signed by: Zach Townsend M.D. 10/04/2017 4:57 PM Dictated Date/Time: 10/04/2017 4:55 PM
--- NOTE | 2017-10-04 18:51 | Progress Note ---
Progress Note Date of Service Oct 04, 2017. Progress Note Subjective: Patient has intermittently reporting back pain needing Dilaudid Physical Exam: General Appearance: awake and alert Head: normocephalic, Atraumatic Eyes: normal inspection, EOMI, Neck: supple, Trachea midline Respiratory/Chest: good air entry Cardiovascular: S1, S2, No murmur Abdomen/GI:Soft, Non tender, Bowel sounds present Extremities/Musculoskelatal:no neurological deficits of extremities or at the waist This is a 61 year old M who presents with syncope with initial admitting differential that syncope could have been related to patient's chronic anemia and patient s/p 1 unit of PRBC which raised Hgb 7.4 to 8 and subsequently being evaluated by Gastroenterology service on 10/04/17 which recommends celiac disease testing and small bowel studies rather than direct visualization. During the evaluation, patient complained of persistent back pain for which he has been taking chronic high dose narcotics at home for years. Patient in the recent past with abnormal MRI studies in August 2017 acute superior endplate compression fracture and Moderate to severe disc space narrowing and endplate degenerative changes at L5-S1. Patient has insists that he needs Dilaudid as inpatient for pain control. Have consulted pain management service for further evaluation. Patient had in the past declined surgical interventions for skeletal related pains in the past but now seems more open for possible interventions. During this discussion today on how to manage the pain, patient' s echocardiogram, which was ordered as part of the syncope workup, was reported to be grossly abnormal by cardiology service. * The right ventricle is severely dilated. * The right ventricular systolic function is severely reduced. * Flattened septum is consistent with RV pressure/volume overload. * Left ventricular systolic function is normal. * The LV Ejection Fraction = 55-60%. * There is no significant tricuspid regurgitation and therefore Doppler assessment does not allow estimation of the pulmonary artery systolic pressure , however, the 2d findings are suggestive of pulmonary hypertension. * Compared to the images of the prior study dated 06/25/17, there has been interval developmend of severe right sided cardiac chamber enlargement with evidence of right ventricular pressure and volume overload, right ventricular strain pattern. Cardiology service advised CTA to rule out pulmonary embolism as cause for the right heart strain CTA was performed and no pulmonary embolism found CTA IMPRESSIONs: 1. Motion compromised examination. 2. There is no evidence of central pulmonary embolus in the main or lobar pulmonary arteries. Evaluation of the peripheral branches is severely degraded by motion artifact. 3. Cardiomegaly and advanced emphysema. 4. Small pleural effusions. 5. There are foci of tree-in-bud nodularity seen in the right upper lobe and at both lung bases. This has improved in the right upper lobe from 07/26/2017 and has worsened at the lung bases. The appearance suggests a chronic infectious/ inflammatory pneumonitis Will consult pulmonary service on abnormalities of right upper lobe and lung bases as seen on CTA. Patient is also receiving nebs, empiric Azithromycin for admission differential diagnosis of bronchitis vs mild COPD exacerbation Other non lung related CTA findings: 1) Upper abdomen: A 7.4 cm cyst arises from the upper pole of the left kidney. A small hiatal hernia is noted. A 1.3 cm hypervascular lesion is seen in the liver image #35. This likely represents a flash filling hemangioma. A 1.7 cm cyst is seen in the right hepatic lobe. 2) Skeletal structures: The skeletal structures are osteopenic. There are numerous healed right-sided rib fractures. Degenerative change and hyperkyphosis are noted in the thoracic spine. Numerous compression deformities are identified. No lytic or blastic bony lesions are seen. Carotid Ultrasound: Atherosclerosis without hemodynamically significant stenosis seen within the carotid arteries HTN: BP controlled, continue metoprolol Acute kidney injury resolving with IV fluids mood/anxiety: continue paroxetine DVT PROPHYLAXIS: SCDs due to anemia Disposition: Have discussed with the patient about the multiple system health problems and patient has agreed to stay in the hospital for further workup and pain control
[2017-10-04] MEDS ORDERED: ACETAMINOPHEN IV 100 ML IV PRN (19:30)
[2017-10-04] MEDS: LORAZEPAM 0.5 MG TAB PO PRN (21:01)
[2017-10-04] MEDS ORDERED: GUAIFENESIN/DEXTROM SYRUP 100MG/10MG 5ML UDC PO PRN (22:30)
[2017-10-04] MEDS ORDERED: COUGH DROP (SUGAR FREE) LOZ 24 LOZ/1 BOX LOZ PRN (22:30)
[2017-10-05] VITALS (9 sets, daily range): BP systolic 144–187; BP diastolic 79–106; PULSE 79–97; TEMP 36.3–36.8; O2SAT 90–98
[2017-10-05] MEDS ORDERED: HALOPERIDOL LACTATE 5 MG/ML 1 ML VIAL IV STA (00:01)
[2017-10-05] MEDS ORDERED: HALOPERIDOL LACTATE 5 MG/ML 1 ML VIAL IV PRN (06:45)
[2017-10-05] MEDS: ALBUT/IPRATROP 3MG/0.5MG NEB 3 ML VIAL INH SCH ×4 (07:10→19:20)
[2017-10-05] MEDS: BUDESONIDE 0.5 MG/2 ML VIAL (PULMICORT) INH SCH ×2 (07:11→19:20)
[2017-10-05 08:46] LABS: BASO % 0.1 %; BASO ABS # 0.01 K/uL (0-0.2); EOS % 0.9 %; EOS ABS # 0.07 K/uL (0-0.5); HEMATOCRIT 26.1 % (42-52); HEMOGLOBIN 7.6 g/dL (14.0-18.0); IG# 0.04 K/uL (0.00-0.02); LYMPH % 11.2 %; LYMPH ABS # 0.85 K/uL (1.2-3.4); MEAN CELL VOLUME 76.3 fL (80-100); MEAN CORPUSCULAR HEMOGLOBIN 22.2 pg (25-34); MEAN CORPUSCULAR HGB CONC 29.1 g/dl (32-36); MEAN PLATELET VOLUME 8.6 fL (7.4-10.4); MONO % 10.7 %; MONO ABS # 0.81 K/uL (0.11-0.59); NEUT % 76.6 %; NEUT ABS # 5.82 K/uL (1.4-6.5); NUCLEATED RED BLOOD CELL ABS 0.09 K/uL (0-0); PLATELET COUNT 174 K/uL (130-400); RED CELL DISTRIBUTION WIDTH CV 18.6 % (11.5-14.5); RED CELL DISTRIBUTION WIDTH SD 52.4 fL (36.4-46.3)
[2017-10-05 09:06] LABS: ALBUMIN 2.7 gm/dl (3.4-5.0); CREATININE 0.96 mg/dl (0.60-1.40); POTASSIUM 4.2 mmol/L (3.5-5.1)
[2017-10-05 09:12] LABS: TOTAL PROTEIN 5.7 gm/dl (6.4-8.2)
[2017-10-05] MEDS: FLUTICASONE/SALMETEROL 250/50 (ADVAIR) 14 PUFF/1 INHALER INH SCH ×2 (09:21→21:38)
[2017-10-05] MEDS: FERROUS SULFATE 325 MG TAB PO SCH ×2 (09:23→16:29)
[2017-10-05] MEDS: CALCIUM 600MG + VIT D 400 IU TAB PO SCH ×2 (09:24→21:39)
[2017-10-05] MEDS: AZITHROMYCIN 250 MG TAB PO SCH (09:24)
[2017-10-05] MEDS: PANTOprazole INJ 40 MG in SYRINGE 0 ML IV SCH ×2 (09:24→21:39)
[2017-10-05] MEDS: ASCORBIC ACID 500 MG TAB PO SCH (09:24)
[2017-10-05] MEDS: PAROXETINE 20 MG TAB PO SCH (09:24)
[2017-10-05] MEDS: METOPROLOL SUCC 50MG EXT REL TAB PO SCH (09:24)
--- NOTE | 2017-10-05 09:54 | Pain Management Consultation ---
Pain Management Consultation Date of Consultation Oct 05, 2017. Reason for Consultation Pain management for chronic low back pain. Pain Location 1 - Axial lumbar spine pain. History Iron Cruz is a 61-year-old male who is admitted to [facility] with complaints of GI complaints and anemia. Patient also has a history of chronic low back pain. He reported experiencing his axial low back pain for several years duration and has been followed by the pain management provider as an outpatient. He reports no significant change of his typical pain pattern but reports mild increase in intensity over the last several months. Pain is located predominantly in the lumbar spine and does not radiate into the lower extremities. Symptoms are characterized as constant aching sensation in the lumbar spine with sharp episodes focally with activity. Symptoms have been present for several years duration without significant change in intensity, frequency, and distribution. Activities that exacerbate patient's symptoms include activities required daily living such as showering, cleaning, grocery shopping and routine activities. Activities that alleviate patient's symptoms include none. Symptoms are rated subjectively as 8/10 on visual analog scale when severe and 4 /10 when minimal. Current treatments include IV hydromorphone, which patient reports helps "a lot " and requests more frequent dosing. However, he reports that hydromorphone "help me sleep" more than relieving patient's pain. Previous treatments include "shots in the back" by Dr. garcia with moderate efficacy. Last interventional procedure was "while back", but patient is unable to ascertain the exact timeframe. He was also on oral oxycodone 5 milligrams/acetaminophen 325 mg 3-4 times a day as an outpatient for last 2-3 years for the axial low back pain. Previous evaluations include imaging of the lumbar spine. Reports no neurological symptoms associated with his axial low back pain. He denies any bowel bladder incontinence, saddle anesthesia, numbness, weakness or any other neurological symptoms. Comorbid medical conditions include history of depression, other comorbid medical conditions and his current GI issues that he is experiencing and admitted for. Past Medical/Surgical History (1) HTN (hypertension) (2) History of Meckel's diverticulum (3) COPD (chronic obstructive pulmonary disease) (4) Depression (5) Chronic neck pain (6) Joyce's esophagus (7) Renal cyst (8) Compression fracture (9) History of basal cell carcinoma (10) Vitamin D deficiency (11) History of suicide attempt (12) History of adenomatous polyp of colon (13) C. difficile colitis (14) History of appendectomy (15) 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 (16) History of colon resection (17) H/O hernia repair (18) Chest pain (19) Dehydration (20) Fall (21) Fracture of rib of right side (22) Hx of skin graft (23) Laceration of right forearm (24) Multiple fractures of ribs, right side, initial encounter forclosed fracture (25) Postoperative wound dehiscence (26) SOB (shortness of breath) (27) Vomiting Family History FH: CAD (coronary artery disease) FATHER ([place], bypass) FHx: heart disease SISTER (atrial septal defect) Hypertension FATHER MOTHER Stroke FATHER TIAs FATHER Social / Work History Smoking Status: Current some day smoker Alcohol Use: none Marital Status: single Occupation: employed Allergies Coded Allergies: Shellfish (Verified Allergy, Severe, SOB & SWOLLEN GLANDS FROM SHELLFISH, 10/03/17) Onion (Verified Allergy, Unknown, RASH AND GI UPSET, 10/03/17) Captopril (Verified Adverse Reaction, Intermediate, "felt bad", 10/03/17) Codeine (Verified Adverse Reaction, Unknown, nausea; nightmares, 10/03/17) Medications Current Inpatient Medications Medications (Trade) Dose Ordered Sig/Tyree Route Start Time Stop Time Status Last Admin Dose Admin Sodium Chloride 1,000 ml @ 80 mls/hr [id number] IV 10/03/17 16:18 11/02/17 16:17 Future Hold 10/04/17 17:17 80 MLS/HR Acetaminophen (Tylenol Tab) 650 mg Q4H PRN PO 10/03/17 16:30 11/02/17 16:29 10/05/17 01:53 650 MG Ondansetron HCl (Zofran Inj) 4 mg Q6H PRN IV 10/03/17 16:30 11/02/17 16:29 Pantoprazole Sodium 40 mg/ Syringe 10 ml @ 5 mls/min DAILY@09,21 IV 10/03/17 19:00 11/02/17 18:59 10/04/17 20:56 5 MLS/MIN Albuterol/ Ipratropium (Duoneb) 3 ml QIDR INH 10/03/17 20:00 11/02/17 19:59 10/04/17 19:42 3 ML Azithromycin (Zithromax Tab) 250 mg QAM PO 10/04/17 09:00 10/07/17 09:01 10/04/17 08:27 250 MG Albuterol/ Ipratropium (Duoneb) 3 ml Q2H PRN INH 10/03/17 17:00 11/02/17 16:59 Ascorbic Acid (Vitamin C Tab) 500 mg DAILY PO 10/04/17 09:00 11/03/17 08:59 10/04/17 08:28 500 MG Metoprolol Succinate (Toprol Xl Tab) 100 mg QAM PO 10/04/17 09:00 11/03/17 08:59 10/04/17 08:27 100 MG Oxycodone/ Acetaminophen (Percocet 10-325MG Tab) 1 tab Q6 PRN PO 10/03/17 18:45 10/17/17 18:44 Future Hold 10/04/17 23:04 1 TAB Calcium/Vitamin D (Caltrate Plus Tab) 1 tab BID PO 10/03/17 21:00 11/02/17 20:59 10/04/17 20:55 1 TAB Paroxetine HCl (pAXil TAB) 40 mg DAILY PO 10/04/17 09:00 11/03/17 08:59 10/04/17 08:28 40 MG Salmeterol Xinafoate/ Fluticasone (Advair Diskus 250/50 Inh) 1 puff BID INH 10/03/17 21:00 11/02/17 20:59 10/04/17 20:56 1 PUFF Ferrous Sulfate (Feosol Tab) 325 mg BIDM PO 10/04/17 08:00 11/03/17 07:59 10/04/17 17:16 325 MG Budesonide (Pulmicort Respules 0.5MG/ 2ML Neb Soln) 0.5 mg BIDR INH 10/04/17 08:00 11/03/17 07:59 10/04/17 19:43 0.5 MG Sodium Chloride ([place] Nasal [place]) 1 sprays PRN PRN NA 10/04/17 14:30 11/03/17 14:29 Ioversol (Optiray 320) 100 ml UD PRN IV 10/04/17 15:30 10/08/17 15:29 Hydromorphone HCl (Dilaudid Inj) 1 mg Q8 PRN IV 10/04/17 15:30 10/18/17 15:29 Future Hold Acetaminophen 100 ml @ 400 mls/hr Q8H PRN IV 10/04/17 19:30 11/03/17 19:29 Lorazepam (Ativan Tab) 0.5 mg ONE PRN PO 10/04/17 19:45 11/03/17 19:44 10/04/17 21:01 0.5 MG Guaifenesin/ Dextromethorphan (Robitussin-Dm Syrup) 10 ml Q6H PRN PO 10/04/17 22:30 11/03/17 22:29 10/04/17 22:39 10 ML Menthol (Nice Glenn) 1 glenn Q1H PRN GLENN 10/04/17 22:30 11/03/17 22:29 Haloperidol Lactate (Haldol Inj) 1 mg Q2H PRN IV 10/05/17 06:45 11/04/17 06:44 Review of Systems Denies any recent history of fever, night sweats, unexplained weight loss, or constitutional symptoms. Otherwise, 8 point review of system has been reported to be negative. Physical Exam Height & Weight: Height 5 feet, 8.00 inches. Weight 88.400 (Kilograms) 194 (Pounds) Last Vital Signs Documentation Date Time Temp Pulse Resp B/P (MAP) Pulse Ox O2 Delivery O2 Flow Rate FiO2 10/05/17 04:21 36.4 88 20 153/91 (111) 90 Room Air 10/04/17 22:55 2.0 Exam: GENERAL: Mr. Cruz is awake, alert and oriented. Appears well developed. He is in no distress at the present time. Appears deconditioned and disheveled. BMI is 29.6 kg/m2. PSYCHIATRIC: Mood appears to be depressed, but he denies suicidal ideations. Demonstrates flat affect. Short-term is intact, but long-term memory is poor. Judgment is intact. VASCULAR: Peripheral pulses are symmetrical. No distal edema noted in the lower extremities. MUSCULOSKELETAL: Inspection of the lumbar spine demonstrates normal curvatures. No lesions are noted in the lumbar spine region. Palpation of the spinous processes intraspinal ligaments demonstrates minimal focal pain. Provocative testing of the facet joints is, with mild pain. Provocative testing of the sacroiliac joints bilaterally demonstrates no pain. No myofascial tenderness or trigger points identifiable in the paraspinous musculature. Inspection of major joints of the lower demonstrates no gross abnormalities. Active and passive range of motion of lower extremity is unremarkable SKIN: Appears unremarkable NEUROLOGICAL: Sensory exam demonstrates intact sensation without deficits. Motor exam demonstrates symmetrical strength without deficit. No pathologic reflexes are noted in the lower extremities. Gait was not tested. Straight leg raising is negative and no is noted with Achilles stretch. No pathologic reflexes are noted. Reflexes: Patellar Reflex L +2 R +2 Achilles Reflex L +2 R +2 Imaging MRI: non enhanced, reports reviewed MRI Findings MRI OF THE LUMBAR SPINE: IMPRESSION: 1. There is an acute mild superior endplate compression fracture T12 demonstrating approximately 10% loss of height. No associated retropulsion. 2. Degenerative disc disease at L5-S1 as described above resulting in mild bilateral neural foraminal narrowing. 3. No significant central canal narrowing. Electronically signed by: Shaun Burns M.D. 09/07/2017 7:54 PM Dictated Date/Time: 09/07/2017 7:[address]: enhanced, reports reviewed CT Findings CT ANGIOGRAM: IMPRESSION: 1. Motion compromised examination. 2. There is no evidence of central pulmonary embolus in the main or lobar pulmonary arteries. Evaluation of the peripheral branches is severely degraded by motion artifact. 3. Cardiomegaly and advanced emphysema. 4. Small pleural effusions. 5. There are foci of tree-in-bud nodularity seen in the right upper lobe and at both lung bases. This has improved in the right upper lobe from 07/26/2017 and has worsened at the lung bases. The appearance suggests a chronic infectious/inflammatory pneumonitis. Clinical correlation will be essential. 6. Additional findings as above. Electronically signed by: Orlando Caldwell M.D. 10/04/2017 4:27 PM Dictated Date/Time: 10/04/2017 4:20 PM [place] Drug Monitoring Program Search Results: patient reviewed within database, see additional documentation Drug Monitoring Findings: Patient receiving oxycodone and tramadol from 1 consistent outpatient provider and to different hospitalists. Using consistent pharmacies for refills. Opioid Risk Assessment Risk assessment performed, moderate risk identified Assessment 1. History of chronic low back pain due to T12 fracture minor nature and facet arthropathy with mild acute exacerbation. 2. Comorbid psychosocial conditions. 3. Comorbid medical conditions that are currently being further evaluated and treated. Recommendations 1. Patient is not a candidate for interventional therapy at the present time. He is being followed by interventional pain management provider as an outpatient and is recommended that upon discharge he undergo reevaluation for interventional procedure as this was beneficial to him previously. 2. Do not recommend any changes in his analgesic regimen at the present time. Recommend that his analgesic regimen targeted for his abdominal pain and GI symptoms rather than for the axial low back pain. 3. Once his GI symptoms have resolved, and he is adequately take p.o. medications, recommend transition back to his baseline oxycodone that he was on previously as an outpatient.
[2017-10-05] MEDS ORDERED: LORAZEPAM 1 MG TAB PO PRN (10:45)
[2017-10-05] MEDS ORDERED: RACEPINEPHRINE 2.25% NEBU SOLN 0.5 ML VIAL INH STA (10:48)
--- NOTE | 2017-10-05 11:00 | Medical Student: BHU Only ---
Psychiatric Evaluation IDENTIFYING DATA: Iron Cruz is a 61-year-old male admitted to [facility] on Oct 03, 2017 who currently lives alone in [place]. Iron Cruz was admitted to the unit for shortness of breath and syncope and we were consulted for evaluation of disorientation and agitation. The patient is unable to answer many questions and is considered unreliable. Additional information was gathered from nursing staff and patient's chart. CHIEF COMPLAINT: "I'm having a hard time breathing and I am in pain" HISTORY OF PRESENT ILLNESS: 61 year old male was admitted to [facility] for complaints of shortness of breath and a syncopal event. He was subsequently diagnosed with severe Anemia and had a blood transfusion yesterday. According to staff, he has been irritable and "hot headed" throughout his stay but last night "he went crazy" and started at yelling at the staff and pulling out his IV. He was extremely agitated during the episode, however the patient himself does not recall this episode. He was given low dose IV Haldol last night and had calmed down since then. When asked about his mood, the patient states that he is "depressed" and in pain. He admits that his depression is chronic and has been depressed for a while. He started taking Paxil after his divorce and follows with his PCP for his prescriptions. He is still irritable and states that "I'm just in so much pain all the time and I'm getting tired of it". Patient was a poor historian as he kept zoning in and out of the interview. It was unclear if he was zoning out to breath or if he was falling asleep. When he zoned out, he kept his eyes closed and it was unclear whether he was snoring or having a difficulty breathing. His nurse stated that he was tired all morning, especially as he slept late after his episode last night. He was having an extremely difficult time breathing and we had to stop the interview due to shortness of breath. According to the nursing staff, he has been admitted multiple times before and has pain medication seeking tendencies. He tends to get angry and irritated when he does not receive his pain medications when he wants them. He states that he has had low energy and is always tired, in pain, and has difficulty breathing. He denies any thoughts of harming or killing himself or harming others. He denies any episodes of auditory or visual hallucinations. He also denies any periods of insomnia, increased productivity, racing thoughts, and euphoria. He denies any Alcohol or recreational drug use and states that he only smokes a couple cigarettes 3-4 times per week. He denies any previous suicide attempts or inpatient behavioral health hospitalizations. His most recent hospitalization was earlier this year for C. diff colitis. He was hospitalized inpatient at [facility] in 2015 for a presumed suicide attempt and worsening depression. At the time her refused treatment but since then has been seeing his PCP, Dr. Monroy, for Paxil. CURRENT MEDICATIONS: Current Psych Meds: Paroxetine (Paroxetine HCl) 40 Mg Tab 40 Mg PO DAILY Other Meds: Active Calcium 500 +D (Calcium Carbonate-Cholecalcife) 1 Tab Tab 1 Tab PO BID Ascorbic Acid 500 Mg Tab 500 Mg PO DAILY Take at lunch time with ferrous sulfate (iron). Reported Breo Ellipta (Fluticasone Furoate-Vilanterol) 1 Inh Inh 1 Inha INH DAILY Vitamin D 85520 Unit (Ergocalciferol) 50,000 Unit Cap 50,000 Unit PO WK Triamcinolone Acetonide (Triamcinolone Acet) 45 Appln/15 Gm Oint 1 Appln TOP BID 30 Days Percocet 10MG/325MG (Oxycodone/Acetaminophen) Tab 1 Tab PO Q6 PRN Ventolin Hfa (Albuterol) 200 Puffs/55122 Mcg Aers 2 Puffs INH QID PRN Oxygen Gas 3 Liters NA HS Protonix (Pantoprazole Sodium) 40 Mg Tab 40 Mg PO QAM Toprol-Xl (Metoprolol Succinate) 100 Mg Tabcr 100 Mg PO QAM Ambien (Zolpidem Tartrate) 10 Mg Tab 10 Mg PO HS PRN PAST PSYCHIATRIC HISTORY: Current outpatient mental health treatment: Sees his PCP, Dr. Monroy. Prior psychiatric hospitalizations: Patient denies any, but records show hospitalization at [facility] for depression and possible suicide attempt. Prior suicide attempts: In 2014, according to chart Access to weapons: Patient was unable to answer Current Diagnosis: Depression PAST MEDICAL HISTORY: Current primary care practitioner is Dr. Monroy. medical history: Medical History: (1) Joyce's esophagus (2) C. difficile colitis (3) Chronic neck pain (4) Compression fracture (5) COPD (chronic obstructive pulmonary disease) (6) Depression (7) History of suicide attempt (8) HTN (hypertension) (9) Hx of skin graft (10) History of basal cell carcinoma (11) History of Meckel's diverticulum (12) Renal cyst (13) Vitamin D deficiency Surgical Problems: (1) H/O hernia repair (2) History of appendectomy (3) History of colon resection (4) History of esophagogastroduodenoscopy (EGD) EGD was done on 09/04/2017 and showed non-bleeding peptic ulcer and Joyce's esophagus. (5) Hx of cardiac cath (6) 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 history of head injury: Denied any head injury history of iv drug use: Denied any history of IV drug use ALLERGIES: 1. Captoril-"felt bad" 2. Codeine-nausea and nightmares 3. Onion-rash and GI upset 4. Shellfish-Shortness of breath and swollen glands FAMILY HISTORY: Mental Health: denied significant history of mental health in his family. Medical history: Father-CAD, [place], bypass, HTN, Stroke, Multiple TIAs Mother-HTN Sister-Structural Heart defect (ASD) SUBSTANCE USE HISTORY: Alcohol use hx: Denies any alcohol use Tobacco use hx: States that he only smokes a "couple" cigarettes 3-4 times per week Illicit Drugs: denies any recreational drug use Caffeine use hx: denies any caffeine intake PERSONAL HISTORY: Born: Patient states that he was born and grew up locally. He lives in [place] by himself on this friend's property but states that his sister sometimes visits. Relationship: He is currently Siblings: He has a sister who lives locally and occasionally visits him Work History: he is currently unemployed Education History: Graduated from high school. Children: 1 son but they are estranged Imaging: Head CT on admission was unremarkable Labs: Last 24 Hours Test 10/04/17 16:14 10/05/17 08:31 White Blood Count 7.60 K/uL Red Blood Count 3.42 M/uL Hemoglobin 7.6 g/dL Hematocrit 26.1 % Mean Corpuscular Volume 76.3 fL Mean Corpuscular Hemoglobin 22.2 pg Mean Corpuscular Hemoglobin Concent 29.1 g/dl Platelet Count 174 K/uL Mean Platelet Volume 8.6 fL Neutrophils (%) (Auto) 76.6 % Lymphocytes (%) (Auto) 11.2 % Monocytes (%) (Auto) 10.7 % Eosinophils (%) (Auto) 0.9 % Basophils (%) (Auto) 0.1 % Neutrophils # (Auto) 5.82 K/uL Lymphocytes # (Auto) 0.85 K/uL Monocytes # (Auto) 0.81 K/uL Eosinophils # (Auto) 0.07 K/uL Basophils # (Auto) 0.01 K/uL RDW Standard Deviation 52.4 fL RDW Coefficient of Variation 18.6 % Immature Granulocyte % (Auto) 0.5 % Immature Granulocyte # (Auto) 0.04 K/uL Nucleated RBC Absolute Count (auto) 0.09 K/uL Nucleated Red Blood Cells % 1.2 % Polychromasia 1+ Hypochromasia PRESENT Acanthocytes 1+ Sodium Level 137 mmol/L Potassium Level 4.2 mmol/L Chloride Level 104 mmol/L Carbon Dioxide Level 26 mmol/L Anion Gap 8.0 mmol/L Blood Urea Nitrogen 13 mg/dl Creatinine 0.96 mg/dl Est Creatinine Clear Calc Drug Dose 85.1 ml/min Estimated GFR () 97.1 Estimated GFR (Non- 83.8 BUN/Creatinine Ratio 14.0 Random Glucose 84 mg/dl Calcium Level 8.0 mg/dl Total Bilirubin 0.3 mg/dl Aspartate Amino Transf (AST/SGOT) 38 U/L Alanine Aminotransferase (ALT/SGPT) 59 U/L Alkaline Phosphatase 78 U/L Total Protein 5.7 gm/dl Albumin 2.7 gm/dl Globulin 3.0 gm/dl Albumin/Globulin Ratio 0.9 Last Resulted CBC 10/05/17 08:31 Red Blood Count 3.42, Mean Corpuscular Volume 76.3, Mean Corpuscular Hemoglobin 22.2, Mean Corpuscular Hemoglobin Concent 29.1, Mean Platelet Volume 8.6, Neutrophils (%) (Auto) 76.6, Lymphocytes (%) (Auto) 11.2, Monocytes (%) (Auto) 10.7, Eosinophils (%) (Auto) 0.9, Basophils (%) (Auto) 0.1, Neutrophils # (Auto ) 5.82, Lymphocytes # (Auto) 0.85, Monocytes # (Auto) 0.81, Eosinophils # (Auto ) 0.07, Basophils # (Auto) 0.01 Last Resulted BMP 10/05/17 08:31 PHYSICAL EXAM: MENTAL STATUS EXAM: Appearance is that of a severely ill male dressed in a hopsital gown who appears his stated age. The patient is laying in bed with labored breathing with intermittent snoring. He has multiple tattoos and lips and mucosa that are extremely dry. THe patient is generally cooperative during the interview. Eye contact is poor. He was unable to provide eye contact as his eyes were closed most of the time and when open would stare at the ceiling. Speech: [] Motor behavior is mostly normal, although he does appear slightly restless. Speech: is labored in between breaths and is slow. Volume ranges from normal to soft. Affect: limited affect.Mood: "depressed" and irritable. Thought process: Thoughts are goal directed but slightly incoherent. He often does not finish his train of thought and trails off. Thought content: Thought content is normal without delusions, suicidal ideations , homicidal ideations, or compulsions. Perception: Denies any hallucinations or illusions. Cognition: The patient is oriented to person and place: he accurately stated that he was at [facility] in [place]. He was able to tell me it was Sunday and September, but stated that it was the and the year was 2011. He was only about to recall 2 words in the immediate 3 word recall and then was "too tired" to proceed with the rest of the mini-cognitive assessment or interview. Intelligence is estimated to be average. Attention Span is low. Concentration: Unable to focus on the questions. He constantly would fall asleep or zone out during the interview. I often had to repeat the question multiple times or he had to ask me to repeat it. Insight is estimated to be impaired. Judgment is estimated to be impaired. RISK ASSESSMENT: * Risk factors: Male, , , Social status unknown, Access to guns: unknown, Multiple health Problems, Mental Health Diagnosis of depression, Substance Use Disorders: yes, Previous attempts: yes, Family history of suicide : unknown, Previous psychiatric hospitalization: yes, Hopelessness: yes * Protective factors: Stable relationships, Supportive family, Good rapport with provider DIAGNOSTIC IMPRESSION: This is a 61 year old male with a history of depression and multiple other health who has developed disorientation and has become increasingly agitated and irritable during his hospital stay for anemia. The patient himself is a poor historian and his episodes of agitation altered mental status seem to wax and wane. Multiple differential diagnosis can be considered causing delirium including hypoxia and alcohol withdrawal. His labs and other imaging showed low red blood counts and an unremarkable head CT. His vitals show increasing pulse rate and blood pressure. Based on vital signs, previous chart documentation of alcohol abuse and onset of symptoms after 72 hours, alcohol withdrawal seems most likely. A Toxicology screen was not done at admission. OCTAVIANO was 167. DSM-V DIAGNOSIS: 1. Depression RECOMMENDATIONS: 1. Alcohol Withdrawal -Start patient on hospital alcohol withdrawal protocol -Confirm records with outpatient provider and set up outpatient follow up after discharge 2. Depression -Continue Paxil 40 mg Daily 3. Altered Mental Status and Agitation -Continue use of low-dose IV Haldol, given that ECG showed no abnormalities with QT interval -Monitor patient on Telemetry Date of Service: Oct 05, 2017.
--- NOTE | 2017-10-05 12:17 | Pulmonary Consultation ---
History General Date of Service: Oct 05, 2017. Chief Complaint: COPD exacerbation Stated Complaint: Symptomatic Anemia HPI The patient is a 61 year old male who presents to [facility] with complaints of Symptomatic Anemia. The patient's primary care provider is Zach Monroy M.D.. The patient was admitted two days ago with hematemesis and a question of GI Bleed. He had shortness of breath earlier in the day. He also indicated throughout the day he would have dyspnea with exertion.The patient experienced a syncopal episode and was brought to the emergency department for evaluation. He was admitted for GI bleed and pulmonary was consulted due to his SOB. Last night he had significant pain and was given Dilaudid and experienced lethargy and hypoxia. Meds were held and pulmonary consult was placed. This morning when I saw the patient he had some stridor. 1 treatment of racemic epinephrine was given by nebulizer with significant improvement. CT chest was reviewed as compared to prior in 07/13 and whilst there is some residual scarring in the right upper lobe, there is overall improvement. Review of Systems A total of 12 systems was reviewed and is negative other than as listed above in the HPI All Other Symptoms All Other Systems: Reviewed and Negative Past Medical History Past Medical History: Medical Problems: (1) Joyce's esophagus (2) C. difficile colitis (3) Chronic neck pain (4) Compression fracture (5) COPD (chronic obstructive pulmonary disease) (6) Depression (7) History of adenomatous polyp of colon (8) History of Joyce's esophagus (9) History of basal cell carcinoma (10) History of Meckel's diverticulum (11) History of suicide attempt (12) HTN (hypertension) (13) Hx of skin graft (14) Renal cyst (15) Vitamin D deficiency Past Surgical History: Surgical Problems: (1) H/O hernia repair (2) History of appendectomy (3) History of colon resection (4) History of esophagogastroduodenoscopy (EGD) (5) Hx of cardiac cath (6) 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 Family History FH: CAD (coronary artery disease) FATHER (CT, bypass) FHx: heart disease SISTER (atrial septal defect) Hypertension FATHER MOTHER Stroke FATHER TIAs FATHER Social History Hx Tobacco Use In Past Year?: Yes Smoking Status: Current Every Day Smoker Alcohol: never Drug Use: none Marital status: single Occupational Status: employed Immunizations History of Influenza Vaccine: Yes Influenza Vaccine Date: May 27, 2017 History of Tetanus Vaccine?: Yes Tetanus Immunization Date: Mar 26, 2014 History of Pneumococcal: Yes Pneumococcal Date: Apr 07, 2014 Allergies Coded Allergies: Shellfish (Verified Allergy, Severe, SOB & SWOLLEN GLANDS FROM SHELLFISH, 10/03/17) Onion (Verified Allergy, Unknown, RASH AND GI UPSET, 10/03/17) Captopril (Verified Adverse Reaction, Intermediate, "felt bad", 10/03/17) Codeine (Verified Adverse Reaction, Unknown, nausea; nightmares, 10/03/17) Current Medications Reported Home Medications Medications Dose Route/Sig Max Daily Dose Days Date Category Dose Instructions Breo Ellipta (Fluticasone Furoate-Vilanterol) 1 Inh Inh 1 Inha INH DAILY 10/03/17 Reported Vitamin D 44262 Unit (Ergocalciferol) 50,000 Unit Cap 50,000 Unit PO WK 10/03/17 Reported Triamcinolone Acetonide (Triamcinolone Acet) 45 Appln/15 Gm Oint 1 Appln TOP BID 30 10/03/17 Reported Percocet 10MG/325MG (Oxycodone/Acetaminophen) Tab 1 Tab PO Q6 PRN 10/03/17 Reported Calcium 500 +D (Calcium Carbonate-Cholecalcife) 1 Tab Tab 1 Tab PO BID 09/09/17 Rx Ascorbic Acid 500 Mg Tab 500 Mg PO DAILY 09/09/17 Rx Take at lunch time with ferrous sulfate (iron). Paroxetine (Paroxetine HCl) 40 Mg Tab 40 Mg PO DAILY 09/09/17 Reported Ventolin Hfa (Albuterol) 200 Puffs/71835 Mcg Aers 2 Puffs INH QID PRN 01/31/17 Reported Oxygen Gas 3 Liters NA HS 09/12/16 Reported Protonix (Pantoprazole Sodium) 40 Mg Tab 40 Mg PO QAM 09/12/16 Reported Toprol-Xl (Metoprolol Succinate) 100 Mg Tabcr 100 Mg PO QAM 09/17/15 Reported Ambien (Zolpidem Tartrate) 10 Mg Tab 10 Mg PO HS PRN 09/17/15 Reported Physical Physical Exam Vital Signs: Date Time Temp Pulse Resp B/P (MAP) Pulse Ox O2 Delivery O2 Flow Rate FiO2 10/05/17 10:58 79 18 93 Nasal Cannula 3.0 10/05/17 09:29 84 18 98 Nasal Cannula 4.5 10/05/17 09:26 92 36 187/106 (133) 92 Nasal Cannula 4.0 10/05/17 08:30 Room Air 10/05/17 08:02 36.3 83 20 161/79 (106) 93 Nasal Cannula 2.0 10/05/17 04:21 36.4 88 20 153/91 (111) 90 Room Air 10/05/17 04:00 Room Air 10/05/17 00:00 Room Air 10/04/17 22:55 36.4 77 20 140/89 (106) 92 Nasal Cannula 2.0 Humidified Oxygen 10/04/17 20:00 96 Nasal Cannula 2.0 10/04/17 19:43 78 17 97 Nasal Cannula 2.0 10/04/17 19:24 36.4 79 20 128/75 (92) 96 Nasal Cannula 2.0 Humidified Oxygen 10/04/17 16:00 97 Nasal Cannula 2.0 10/04/17 15:21 80 17 98 Nasal Cannula 2.0 10/04/17 14:57 36.4 56 20 149/88 (108) 97 Nasal Cannula 2.0 Weight in Kilograms: 88.4 GENERAL : Moderate acute distress EYES: No icterus, gaze conjugate NOSE: No evidence of epistaxis. Nasal cannula in place MOUTH: No lesions or candidiasis NECK: Supple. Positive for stridor LUNGS: Diffuse bronchospasm. Fine rales at bilateral bases HEART: Regular, tachycardic in the low 100s ABDOMEN: Soft, NT, ND, BS Present. No rebound tenderness EXTREMITIES: No LE edema, pedal pulses intact NEURO: [facility] Labs Results Past 24 Hours Test 10/04/17 16:14 10/05/17 08:31 Range/Units White Blood Count 7.60 4.8-10.8 K/uL Red Blood Count 3.42 4.7-6.1 M/uL Hemoglobin 7.6 14.0-18.0 g/dL Hematocrit 26.1 42-52 % Mean Corpuscular Volume 76.3 80-100 fL Mean Corpuscular Hemoglobin 22.2 25-34 pg Mean Corpuscular Hemoglobin Concent 29.1 32-36 g/dl Platelet Count 174 130-400 K/uL Mean Platelet Volume 8.6 7.4-10.4 fL Neutrophils (%) (Auto) 76.6 % Lymphocytes (%) (Auto) 11.2 % Monocytes (%) (Auto) 10.7 % Eosinophils (%) (Auto) 0.9 % Basophils (%) (Auto) 0.1 % Neutrophils # (Auto) 5.82 1.4-6.5 K/uL Lymphocytes # (Auto) 0.85 1.2-3.4 K/uL Monocytes # (Auto) 0.81 0.11-0.59 K/uL Eosinophils # (Auto) 0.07 0-0.5 K/uL Basophils # (Auto) 0.01 0-0.2 K/uL RDW Standard Deviation 52.4 36.4-46.3 fL RDW Coefficient of Variation 18.6 11.5-14.5 % Immature Granulocyte % (Auto) 0.5 % Immature Granulocyte # (Auto) 0.04 0.00-0.02 K/uL Nucleated RBC Absolute Count (auto) 0.09 0-0 K/uL Nucleated Red Blood Cells % 1.2 % Polychromasia 1+ Hypochromasia PRESENT Acanthocytes 1+ Sodium Level 137 136-145 mmol/L Potassium Level 4.2 3.5-5.1 mmol/L Chloride Level 104 98-107 mmol/L Carbon Dioxide Level 26 21-32 mmol/L Anion Gap 8.0 3-11 mmol/L Blood Urea Nitrogen 13 7-18 mg/dl Creatinine 0.96 0.60-1.40 mg/dl Est Creatinine Clear Calc Drug Dose 85.1 ml/min Estimated GFR () 97.1 Estimated GFR (Non- 83.8 BUN/Creatinine Ratio 14.0 10-20 Random Glucose 84 70-99 mg/dl Calcium Level 8.0 8.5-10.1 mg/dl Total Bilirubin 0.3 0.2-1 mg/dl Aspartate Amino Transf (AST/SGOT) 38 15-37 U/L Alanine Aminotransferase (ALT/SGPT) 59 12-78 U/L Alkaline Phosphatase 78 45-117 U/L Total Protein 5.7 6.4-8.2 gm/dl Albumin 2.7 3.4-5.0 gm/dl Globulin 3.0 2.5-4.0 gm/dl Albumin/Globulin Ratio 0.9 0.9-[address] ANGIOGRAM OF THE CHEST CLINICAL HISTORY: Right heart strain seen by echocardiography. COMPARISON STUDY: Chest CT dated 07/26/2017 and 03/29/2015. Chest x-ray dated 10/03/2017. TECHNIQUE: Following the IV administration of 109 cc of Optiray 320, CT angiogram of the chest was performed from the upper abdomen to the thoracic inlet utilizing the pulmonary embolus protocol. Images are reviewed in the axial, sagittal, and coronal planes. 3-D MIPS images are created and assessed. IV contrast was administered without complication. A dose lowering technique was utilized adhering to the principles of ALARA. The examination is moderately degraded by motion artifact. CT DOSE: 635.06 mGy.cm FINDINGS: Thyroid: Atrophic. Thoracic aorta: There is atherosclerotic calcification of the thoracic aorta, which is normal in caliber and demonstrates standard 3-vessel arch anatomy. No dissection is seen. Pulmonary vasculature: The pulmonary trunk is normal in caliber. There are no filling defects identified in main or lobar pulmonary branches to suggest pulmonary embolus. Evaluation of the peripheral branches is severely degraded by motion artifact. Heart: The heart is enlarged and without pericardial effusion. Lungs and pleural spaces: Evaluation of the lung parenchyma is severely degraded by motion artifact. Advanced emphysema is again noted. Fibrosis/scarring is identified the right apex. Small pleural effusions are identified. Patchy foci of tree-in-bud nodularity are seen in the right upper lobe. This has significantly improved from 07/26/2017. Similar-appearing opacities are present at both lung bases, and this has worsened from 07/26/2017. Fluid/debris is noted in the lower lobe airways. The trachea and central airways are patent. Mediastinum: There are numerous subcentimeter mediastinal lymph nodes. These are not pathologically enlarged by size criteria. Sarah: Clear. Axillae: There is no axillary lymphadenopathy. Upper abdomen: A 7.4 cm cyst arises from the upper pole of the left kidney. A small hiatal hernia is noted. A 1.3 cm hypervascular lesion is seen in the liver image #35. This likely represents a flash filling hemangioma. A 1.7 cm cyst is seen in the right hepatic lobe. Skeletal structures: The skeletal structures are osteopenic. There are numerous healed right-sided rib fractures. Degenerative change and hyperkyphosis are noted in the thoracic spine. Numerous compression deformities are identified. No lytic or blastic bony lesions are seen. IMPRESSION: 1. Motion compromised examination. 2. There is no evidence of central pulmonary embolus in the main or lobar pulmonary arteries. Evaluation of the peripheral branches is severely degraded by motion artifact. 3. Cardiomegaly and advanced emphysema. 4. Small pleural effusions. 5. There are foci of tree-in-bud nodularity seen in the right upper lobe and at both lung bases. This has improved in the right upper lobe from 07/26/2017 and has worsened at the lung bases. The appearance suggests a chronic infectious/inflammatory pneumonitis. Clinical correlation will be essential. 6. Additional findings as above. Electronically signed by: Orlando Caldwell M.D. 10/04/2017 4:27 PM Impression Assessment and Plan COPD EXACERBATION * Patient continued to be a daily smoker -discussed need for complete abstention * Patient is on azithromycin * Patient had admission last fall with multilobar pneumonia which still continues to have remnants on CT scan with possible scarring * Continue bronchodilators including Advair, Pulmicort, and duo nebs * Continue guaifenesin * Methylprednisolone 40 mg IV tid CHRONIC PAIN * Pain consult placed -patient seen by Dr. Calvin * I spoke with Dr. Calvin inasmuch as patient was requesting Dilaudid. He instructed to place the patient on his home dose of Percocet 10/325 mg with no further Dilaudid due to lethargy * Patient is not a candidate for implantable pump at this time * Further management per Dr. Calvin/pain clinic GI BLEED * Patient presented with syncopal episode and symptomatic anemia * Continue PPI while on IV steroids * Further management per GI * Patient received 1 unit of packed red blood cells * May benefit from additional unit of packed red blood cells for hypoxia -will defer to primary team as well as GI DVT PROPHYLAXIS * No chemical prophylaxis secondary to symptomatic anemia with GI bleed * NAOMI hose/SCDs * Ambulate as tolerated Thank you for including us in the care of this patient. Please refer to Dr. Garibay's addendum for further recommendations Resident Physician Supervision Note: I was present with Orlando HAWKINS during the history and exam. I discussed the case with him and agree with the findings and plan as documented in the note. Any exceptions or clarifications are listed here: Patient with extensive emphysema, extensive pneumonia predominantly in RUL last year, presents with upper GI bleeding, now appears to be in COPD exacerbation. Start steroids now, has significant wheezing CT scan reviewed, much improved but left with RUL scarring. Recommend follow up as outpatient. Bronchodilators Continue Advair, no need for Pulmicort Documented By: Braulio Garibay MD
--- NOTE | 2017-10-05 12:40 | Progress Note ---
Progress Note Date of Service Oct 05, 2017. (Zina Rosales CRNP) Progress Note GI note: Patient is a 61 year old male seen for symptomatic anemia and possible recurrent GI bleed. ? report of possible coffee ground emesis, c/o LLQ abd pain. No signs of melena now and he's heme negative for stool when checked in ED. He did have a hx of melena and had EGD 1 month ago showing Joyce's (known hx), gastritis w/o Hpylori on bx, and one superficial Pratik gastric ulcer lesion that's not bleeding. Last colonoscopy 2015 w diverticulosis, int hemorrhoids, adenomatous and hyperplastic polyps. He's chronically anemia, severe iron deficiency anemia and wasn't on iron supplements at home. He was on Protonix 40mg daily, and recently just completed Vancomycin for Cdiff. Stools solid per his report w/o rectal bleeding. 10/05/17: Pt not seen today, chart reviewed: Noted H/H stable after 1U PRBC transfusion. No BMs overnight. Celiac panel obtained, pending. Small bowel xray ordered, not completed yet. Plans - Advance diet as tolerated - Protonix 40mg PO BID - F/U celiac panel and small bowel xray tests; if negative and if GI bleeding recur may consider repeat Colonoscopy in outpt setting he just had a recent EGD 1 month ago as noted above and no indication to repeat it. (Zina Rosales CRNP)
--- NOTE | 2017-10-05 13:21 | DIAGNOSTIC IMAGING REPORT ---
SMALL BOWEL STUDY CLINICAL HISTORY: 61 years-old Male with eval for small bowel lesions to explain anemia. Acute anemia TECHNIQUE: Oral barium was administered to the patient and serial radiographs of the abdomen were performed. COMPARISON STUDY: KUB 10/04/2017, CT 08/31/2017 FLUOROSCOPY TIME: No fluoroscopic images were obtained secondary to patient cooperation. FINDINGS: [employer] radiograph of the abdomen demonstrates multiple nondistended loops of air-filled small and large bowel scattered throughout the abdomen. There are no signs of bowel obstruction or evidence of gross pneumoperitoneum. Contrast is noted within the urinary bladder from recent CTA study of the chest. Upon the administration of oral barium contrast, there is prompt opacification of the gastric lumen and proximal small bowel. Transit to the large bowel occurred at approximately 95 minus. The patient refused spot fluoroscopic images of the abdomen. The terminal ileum appears unremarkable as visualized. IMPRESSION: 1. Nonobstructive bowel gas pattern. 2. Limited study secondary to patient refusing the dedicated spot fluoroscopic images within all 4 quadrants of the abdomen. The above report was generated using voice recognition software. It may contain grammatical, syntax or spelling errors. Electronically signed by: Des Olivier M.D. 10/05/2017 1:20 PM Dictated Date/Time: 10/05/2017 1:18 PM
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
[2017-10-05] MEDS: OXYCODONE/ACETAMINOPHEN 10/325MG TAB PO PRN ×2 (14:58→21:38)
[2017-10-05] MEDS: HYDROmorphone INJ 0.5 MG/0.5 ML SYR IV PRN (18:29)
--- NOTE | 2017-10-05 20:18 | Progress Note ---
Progress Note Date of Service Oct 05, 2017. Progress Note Subjective: Patient had overnight disorientation and required haldol. Patient awake and alert and was explained medical situation. Patient expresses understanding. He reports that once back pain better control, he will feel be able to follow up medical recommendations for outpatient care and follow ups Physical Exam: General Appearance: awake and alert Head: normocephalic, Atraumatic Eyes: normal inspection, EOMI, Neck: supple, Trachea midline Respiratory/Chest: good air entry Cardiovascular: S1, S2, No murmur Abdomen/GI:Soft, Non tender, Bowel sounds present Extremities/Musculoskelatal:no neurological deficits of extremities or at the waist This is a 61 year old M who presents with syncope with initial admitting differential that syncope could have been related to patient's chronic anemia and patient s/p 1 unit of PRBC which raised Hgb 7.4 to 8 and subsequently being evaluated by Gastroenterology service on 10/04/17 which recommends celiac disease testing and small bowel studies rather than direct visualization. During the evaluation, patient complained of persistent back pain for which he has been taking chronic high dose narcotics at home for years. Patient in the recent past with abnormal MRI studies in August 2017 acute superior endplate compression fracture and Moderate to severe disc space narrowing and endplate degenerative changes at L5-S1. patient's echocardiogram, which was ordered as part of the syncope workup, was reported to be grossly abnormal by cardiology service. * The right ventricle is severely dilated. * The right ventricular systolic function is severely reduced. * Flattened septum is consistent with RV pressure/volume overload. * Left ventricular systolic function is normal. * The LV Ejection Fraction = 55-60%. * There is no significant tricuspid regurgitation and therefore Doppler assessment does not allow estimation of the pulmonary artery systolic pressure , however, the 2d findings are suggestive of pulmonary hypertension. * Compared to the images of the prior study dated 06/25/17, there has been interval developmend of severe right sided cardiac chamber enlargement with evidence of right ventricular pressure and volume overload, right ventricular strain pattern. Cardiology service advised CTA to rule out pulmonary embolism as cause for the right heart strain CTA was performed and no pulmonary embolism found CTA IMPRESSIONs: 1. Motion compromised examination. 2. There is no evidence of central pulmonary embolus in the main or lobar pulmonary arteries. Evaluation of the peripheral branches is severely degraded by motion artifact. 3. Cardiomegaly and advanced emphysema. 4. Small pleural effusions. 5. There are foci of tree-in-bud nodularity seen in the right upper lobe and at both lung bases. This has improved in the right upper lobe from 07/26/2017 and has worsened at the lung bases. The appearance suggests a chronic infectious/ inflammatory pneumonitis consulted pulmonary service on abnormalities of right upper lobe and lung bases as seen on CTA. Patient is also receiving nebs, empiric Azithromycin for admission differential diagnosis of bronchitis vs mild COPD exacerbation; recommendations to Continue bronchodilators including Advair, Pulmicort, and duo nebs,Continue guaifenesin, Methylprednisolone 40 mg IV tid Other non lung related CTA findings: 1) Upper abdomen: A 7.4 cm cyst arises from the upper pole of the left kidney. A small hiatal hernia is noted. A 1.3 cm hypervascular lesion is seen in the liver image #35. This likely represents a flash filling hemangioma. A 1.7 cm cyst is seen in the right hepatic lobe. 2) Skeletal structures: The skeletal structures are osteopenic. There are numerous healed right-sided rib fractures. Degenerative change and hyperkyphosis are noted in the thoracic spine. Numerous compression deformities are identified. No lytic or blastic bony lesions are seen. Patient has been evaluated by Psychiatry and Pain Management on 10/05/17 for disorientation and back pain management Anemia is so far stable; small bowel study unremarkable, celiac testing pending results Carotid Ultrasound: Atherosclerosis without hemodynamically significant stenosis seen within the carotid arteries HTN: BP controlled, continue metoprolol Acute kidney injury resolved with IV fluids DVT PROPHYLAXIS: SCDs due to anemia
[2017-10-05] MEDS: LORAZEPAM 0.5 MG TAB PO PRN (21:38)
[2017-10-05] MEDS: METHYLPREDNISOLONE IV 40 MG in SYRINGE 0 ML IV SCH (21:39)
[2017-10-06] VITALS (10 sets, daily range): BP systolic 118–180; BP diastolic 69–104; PULSE 70–92; TEMP 36.3–36.8; O2SAT 90–99
[2017-10-06] MEDS: HYDROmorphone INJ 0.5 MG/0.5 ML SYR IV PRN ×4 (02:27→23:07)
[2017-10-06] MEDS: ALBUT/IPRATROP 3MG/0.5MG NEB 3 ML VIAL INH SCH (07:07)
[2017-10-06 07:59] LABS: HEMATOCRIT 27.8 % (42-52); HEMOGLOBIN 7.9 g/dL (14.0-18.0); MEAN CELL VOLUME 77.4 fL (80-100); MEAN CORPUSCULAR HGB CONC 28.4 g/dl (32-36); MEAN PLATELET VOLUME 8.8 fL (7.4-10.4); NUCLEATED RED BLOOD CELL ABS 0.07 K/uL (0-0); PLATELET COUNT 194 K/uL (130-400); RED CELL DISTRIBUTION WIDTH CV 19.1 % (11.5-14.5); RED CELL DISTRIBUTION WIDTH SD 54.2 fL (36.4-46.3); WHITE BLOOD COUNT 6.19 K/uL (4.8-10.8)
[2017-10-06 08:22] LABS: IG# 0.05 K/uL (0.00-0.02); LYMPH % 3.6 %; LYMPH ABS # 0.22 K/uL (1.2-3.4); MONO % 1.8 %; MONO ABS # 0.11 K/uL (0.11-0.59); NEUT % 93.8 %; NEUT ABS # 5.81 K/uL (1.4-6.5)
[2017-10-06 08:24] LABS: ALBUMIN 2.5 gm/dl (3.4-5.0); CALCIUM 8.2 mg/dl (8.5-10.1); CREATININE 0.98 mg/dl (0.60-1.40); POTASSIUM 4.3 mmol/L (3.5-5.1)
[2017-10-06 08:27] LABS: TOTAL PROTEIN 5.7 gm/dl (6.4-8.2)
[2017-10-06] MEDS: METOPROLOL SUCC 50MG EXT REL TAB PO SCH (08:43)
[2017-10-06] MEDS: PANTOprazole INJ 40 MG in SYRINGE 0 ML IV SCH (08:43)
[2017-10-06] MEDS: METHYLPREDNISOLONE IV 40 MG in SYRINGE 0 ML IV SCH ×2 (08:43→14:01)
[2017-10-06] MEDS: PAROXETINE 20 MG TAB PO SCH (08:43)
[2017-10-06] MEDS: ASCORBIC ACID 500 MG TAB PO SCH (08:43)
[2017-10-06] MEDS: AZITHROMYCIN 250 MG TAB PO SCH (08:43)
[2017-10-06] MEDS: CALCIUM 600MG + VIT D 400 IU TAB PO SCH ×2 (08:43→20:28)
[2017-10-06] MEDS: FLUTICASONE/SALMETEROL 250/50 (ADVAIR) 14 PUFF/1 INHALER INH SCH ×2 (08:43→20:29)
[2017-10-06] MEDS: FERROUS SULFATE 325 MG TAB PO SCH ×2 (08:43→16:51)
[2017-10-06] MEDS: OXYCODONE/ACETAMINOPHEN 10/325MG TAB PO PRN ×3 (08:44→20:27)
[2017-10-06] MEDS: ALBUT/IPRATROP 3MG/0.5MG NEB 3 ML VIAL INH PRN (11:12)
--- NOTE | 2017-10-06 14:46 | CARDIOLOGY CONSULTATION ---
DATE OF CONSULTATION: 10/06/2017 REFERRING PHYSICIAN: Dr. Stephane Jaramillo. REASON FOR CONSULTATION: Heart pounding. HISTORY OF PRESENT ILLNESS: Mr. Cruz is a 61-year-old male who was admitted on 10/03/2017 with syncope. Recently, admitted in mid August for symptomatic anemia where EGD demonstrated ulceration. He returned to the ER and found to have a hemoglobin of 7.4. He was transfused 1 unit of packed red blood cells. Also, diagnosed with acute exacerbation of severe underlying COPD. The patient is on home oxygen. Active wheezing, on nebulizer treatment upon my arrival to the room. Notes dyspnea on exertion as well as dyspnea at rest intermittently. Reports cough with minimally productive sputum. Denies any hematochezia or melena, however, noted dark colored stools over the past few weeks. Denies any epigastric or chest discomfort. He reports "heart pounding" with minimal activity. He feels his heart is racing out of his chest. Per review of telemetry, the maximum heart rate recorded is 95 beats per minute in sinus rhythm. There are no dysrhythmias. Denies orthopnea, PND, or lower extremity edema. No recurrent lightheadedness or dizziness since admission. Cardiac enzymes are negative. His cardiac history is significant for a normal catheterization performed in 2013. A resting 2D transthoracic echo performed during this admission demonstrates severe RV enlargement with RV dysfunction and indirect evidence of pulmonary hypertension. When directly compared to previous echocardiogram, the RV size has increased, although was enlarged on previous studies. REVIEW OF SYSTEMS: The pertinent positive is noted above. A comprehensive 10-system review is otherwise negative. PAST MEDICAL HISTORY: 1. Severe COPD, on home oxygen. 2. C. diff colitis. 3. Joyce's esophagitis. 4. Peptic ulcer disease. 5. Upper gastrointestinal bleeding. 6. Depression. 7. Colon polyp. 8. Basal cell carcinoma. 9. Meckel's diverticulum. 10. Psychiatric issue with previous suicide attempt. 11. Hypertension. 12. Renal cyst. PAST SURGICAL HISTORY: 1. Skin graft. 2. Hernia repair. 3. Appendectomy. 4. Colon resection. 5. EGD demonstrating gastric ulcer on 09/04/2017 with Joyce's esophagus. 6. Cardiac catheterization in 2013, normal coronaries. 7. Right knee tumor removed. FAMILY HISTORY: Father with coronary artery disease, sister with an atrial septal defect. There is no premature CAD or sudden cardiac . SOCIAL HISTORY: Everyday smoker. Greater than [id number] history. ALLERGIES: SHELLFISH, ONION, CAPTOPRIL, CODEINE. HOME MEDICATIONS: 1. Ascorbic acid 500 mg daily. 2. Calcium carbonate 500 mg daily. 3. Vitamin D daily. 4. Breo daily. 5. Oxygen 3 liters continuous. 6. Toprol-XL 100 mg daily. 7. Protonix 40 mg daily. 8. Paxil 40 mg daily. 9. Albuterol as needed. 10. Percocet as needed. 11. Ambien as needed. IMAGING STUDIES: CT of the chest negative for pulmonary embolus, cardiomegaly with advanced emphysema noted. Tree-in-bud nodularity noted. The appearance suggests chronic infectious and inflammatory pneumonitis. Numerous healed right-sided rib fractures, fluids/debris noted in the lower lobe airways. LABORATORY DATA: Cardiac enzymes negative. Sodium 136, potassium 4.3, chloride 99, CO2 is 30, BUN is 15, creatinine 0.98. White blood cell count 6.19, hemoglobin 7.9 and platelet count is 194. Influenza screen is negative. PHYSICAL EXAMINATION: VITAL SIGNS: Temperature is 36.8 degrees Centigrade, pulse is 86 beats per minute and regular, respiratory rate is 18 breaths per minute, blood pressure 147/82, SaO2 is 99% on 4 liters nasal cannula. GENERAL: NAD, chronically ill, pale appearing. THROAT: His mucous membranes are dry. No scleral icterus. Conjunctivae are pale. NECK: Supple without JVD or HJR. No carotid bruit. HEART: Regular with a normal S1 and S2. There is no murmur, rub or gallop. LUNGS: Lung sounds are diminished bilaterally. There is poor air movement. Expiratory wheezing noted. ABDOMEN: Soft, nontender. No rebound or guarding. Normal bowel sounds. EXTREMITIES: Warm and dry. There is no clubbing, cyanosis, or edema. Posterior tibial pulses are 2/4 bilaterally. NEUROLOGIC: Demonstrates no focal motor deficit. FINAL IMPRESSION: 1. A 61-year-old male admitted with symptomatic anemia and acute exacerbation of severe underlying chronic obstructive pulmonary disease. Consultation requested due to "heart pounding." Symptoms secondary to cardiac awareness in the setting of chronic obstructive pulmonary disease exacerbation, hypoxia, symptomatic anemia. No dysrhythmias recorded. 2. History of normal coronary arteries by cardiac catheterization in 2013 in the setting of abnormal Lexiscan nuclear stress test, which was found to be false positive. 3. Right ventricular enlargement secondary to severe underlying chronic obstructive pulmonary disease with acute exacerbation in the setting of anemia and hypoxemia. 4. Active tobacco abuse. 5. CT evidence of aspiration with fluid and debris noted in the lower airways. PLAN AND RECOMMENDATIONS: I had a long discussion with the patient regarding his cardiac awareness. I discussed the findings of telemetry as well as previous catheterization. Recommend supportive care for his acute COPD exacerbation and treatment of underlying anemia. I would recommend maintaining his hemoglobin greater than 8.0 given his hypoxemia and acute exacerbation of COPD. He will continue beta shravan therapy as previously ordered. There does not appear to be a role for stress testing at this time as he does not have anginal symptoms nor evidence of acute coronary syndrome. Previous catheterization demonstrated normal coronary anatomy. All questions were answered to the patient's satisfaction. Thank you for allowing me to participate in the care of your patient.
--- NOTE | 2017-10-06 15:17 | PULMONARY CONSULTATION ---
DATE OF CONSULTATION: 10/06/2017 REASON FOR CONSULTATION: COPD exacerbation and symptomatic anemia. HISTORY OF PRESENT ILLNESS: A 61-year-old white male, well known to me from previous consultative work was admitted 3 days ago with hematemesis and possible GI bleed. He has also had difficulty with his breathing and complaining of palpitations as well as a syncopal episode. He was set this morning as it was eluded to him that his confusion the first several days might be the result of alcohol or alcohol withdrawal and he states to me he has not had any alcohol in 8-9 months and is "extremely proud about that." The Dilaudid given for pain may have contributed to some confusion and those meds were held. Orlando Fortune saw the patient in consultation yesterday. The patient feels he is unable to expectorate phlegm. CT angiogram was done yesterday and I reviewed it. There was a lot of motion artifact but no obvious evidence of central pulmonary thromboembolic disease. Advanced emphysema with cardiomegaly and small bilateral pleural effusions were noted and there were foci of tree-in-bud nodularity in the right upper lobe at the lung bases. Since June, the right upper lobe infiltrates have improved but the basilar infiltrates have worsened. His white count has never been elevated but his H&H is 7.9 and 27.8 with hypochromic microcytic indices. Small bowel study done shows nonobstructive bowel gas pattern and this was a limited exam. OVERALL ASSESSMENT: Chronic obstructive pulmonary disease exacerbation. The patient continues to smoke and is currently on azithromycin and has been treated for multilobar pneumonia in the past, IV methylprednisolone 40 mg t.i.d. has been prescribed. I think we need to address patient's narcotic utilization and Dr. Kinney was to be consulted. I think the exact nature of the gastrointestinal bleed needs to be determined certainly his anemia given his cardiopulmonary status has caused it to be compromised. He may need additional blood to maintain his hemoglobin above 8. In addition, it may very well be necessary for the patient to undergo bronchoscopic evaluation, if he fails to show improvement. Dr. Gomez saw him in July of 2017 and in May of 2017. The patient currently is receiving aerosolized bronchodilator, IV Solu-Medrol, guaifenesin, oral azithromycin, Advair Diskus inhaler and IV pantoprazole. PLAN: We will continue to watch patient and see if indeed his respiratory status improves. Once again I would transfuse him an additional unit of packed red blood cells to maintain hemoglobin greater than 8 and watch for signs of respiratory decompensation.
--- NOTE | 2017-10-06 16:02 | Progress Note ---
Progress Note Date of Service Oct 06, 2017. Progress Note Subjective: Patient reports that with exertion he feels "pounding" sensations of the chest. Cardiology service was asked to evaluate Physical Exam: General Appearance: awake and alert Head: normocephalic, Atraumatic Eyes: normal inspection, EOMI, Neck: supple, Trachea midline Respiratory/Chest: good air entry Cardiovascular: S1, S2, No murmur Abdomen/GI:Soft, Non tender, Bowel sounds present Extremities/Musculoskelatal:no neurological deficits of extremities or at the waist This is a 61 year old M who presents with syncope with initial admitting differential that syncope could have been related to patient's chronic anemia and patient s/p 1 unit of PRBC which raised Hgb 7.4 to 8 and subsequently being evaluated by Gastroenterology service on 10/04/17 which recommends celiac disease testing and small bowel studies rather than direct visualization. During the evaluation, patient complained of persistent back pain for which he has been taking chronic high dose narcotics at home for years. Patient in the recent past with abnormal MRI studies in August 2017 acute superior endplate compression fracture and Moderate to severe disc space narrowing and endplate degenerative changes at L5-S1. patient's echocardiogram, which was ordered as part of the syncope workup, was reported to be grossly abnormal by cardiology service. * The right ventricle is severely dilated. * The right ventricular systolic function is severely reduced. * Flattened septum is consistent with RV pressure/volume overload. * Left ventricular systolic function is normal. * The LV Ejection Fraction = 55-60%. * There is no significant tricuspid regurgitation and therefore Doppler assessment does not allow estimation of the pulmonary artery systolic pressure , however, the 2d findings are suggestive of pulmonary hypertension. * Compared to the images of the prior study dated 06/25/17, there has been interval developmend of severe right sided cardiac chamber enlargement with evidence of right ventricular pressure and volume overload, right ventricular strain pattern. Cardiology service advised CTA to rule out pulmonary embolism as cause for the right heart strain CTA was performed and no pulmonary embolism found CTA IMPRESSIONs: 1. Motion compromised examination. 2. There is no evidence of central pulmonary embolus in the main or lobar pulmonary arteries. Evaluation of the peripheral branches is severely degraded by motion artifact. 3. Cardiomegaly and advanced emphysema. 4. Small pleural effusions. 5. There are foci of tree-in-bud nodularity seen in the right upper lobe and at both lung bases. This has improved in the right upper lobe from 07/26/2017 and has worsened at the lung bases. The appearance suggests a chronic infectious/ inflammatory pneumonitis consulted pulmonary service on abnormalities of right upper lobe and lung bases as seen on CTA. Patient is also receiving nebs, empiric Azithromycin for admission differential diagnosis of bronchitis vs mild COPD exacerbation; recommendations to Continue bronchodilators including Advair, Pulmicort, and duo nebs,Continue guaifenesin, Methylprednisolone 40 mg IV tid Other non lung related CTA findings: 1) Upper abdomen: A 7.4 cm cyst arises from the upper pole of the left kidney. A small hiatal hernia is noted. A 1.3 cm hypervascular lesion is seen in the liver image #35. This likely represents a flash filling hemangioma. A 1.7 cm cyst is seen in the right hepatic lobe. 2) Skeletal structures: The skeletal structures are osteopenic. There are numerous healed right-sided rib fractures. Degenerative change and hyperkyphosis are noted in the thoracic spine. Numerous compression deformities are identified. No lytic or blastic bony lesions are seen. Patient has been evaluated by Psychiatry and Pain Management on 10/05/17 for disorientation and back pain management Cardiology service was asked on 10/06/17 to evaluate role of stress test with patient's exertional dyspnea and pounding sensations of the chest: Cardiology service reports no role for stress testing and that symptoms likely related to anemia and pulmonary health issues Anemia appears to be from iron deficiency. small bowel study unremarkable, celiac testing pending results. continue iron supplements. Cardiology service on 10/06/17 recommends that patient's Hgb to be 8 and above. Hgb today is 7.9. Discussed with patient about risks and benefits of blood transfusion. Patient reports he will hold off blood transfusion for now. Will repeat CBC tomorrow to see if Hgb stays close to 8 or higher Carotid Ultrasound: Atherosclerosis without hemodynamically significant stenosis seen within the carotid arteries HTN: BP controlled, continue metoprolol Acute kidney injury resolved with IV fluids DVT PROPHYLAXIS: SCDs due to anemia Disposition: syncope investigation led to multiple findings of iron deficiency anemia with 1 unit PRBC blood transfusion given on admission, right ventricular systolic function is severely reduced on echocardiogram, COPD, recurrent back pain issues, disorientation. Currently the overall plan is to encourage patient to ambulate and alleviate respiratory symptoms.
[2017-10-06] MEDS: HydrALAZINE HCL 20 MG/ML VIAL IV. PRN (19:21)
[2017-10-06] MEDS ORDERED: GABAPENTIN 600 MG TAB PO ONE (19:52)
[2017-10-06] MEDS: CYCLOBENZAPRINE HCL 5 MG TAB PO SCH (20:27)
[2017-10-07] VITALS (7 sets, daily range): BP systolic 132–168; BP diastolic 74–97; PULSE 82–97; TEMP 36.4–36.6; O2SAT 92–98
[2017-10-07] MEDS: GABAPENTIN 600 MG TAB PO SCH ×2 (01:54→07:50)
[2017-10-07] MEDS: OXYCODONE/ACETAMINOPHEN 10/325MG TAB PO PRN ×4 (02:15→21:36)
[2017-10-07] MEDS: HYDROmorphone INJ 0.5 MG/0.5 ML SYR IV PRN ×3 (04:53→16:57)
[2017-10-07 07:27] LABS: HEMATOCRIT 28.7 % (42-52); HEMOGLOBIN 8.3 g/dL (14.0-18.0); MEAN CELL VOLUME 77.2 fL (80-100); MEAN CORPUSCULAR HEMOGLOBIN 22.3 pg (25-34); MEAN CORPUSCULAR HGB CONC 28.9 g/dl (32-36); MEAN PLATELET VOLUME 8.5 fL (7.4-10.4); NUCLEATED RED BLOOD CELL ABS 0.09 K/uL (0-0); PLATELET COUNT 194 K/uL (130-400); RED CELL DISTRIBUTION WIDTH CV 19.5 % (11.5-14.5); RED CELL DISTRIBUTION WIDTH SD 54.3 fL (36.4-46.3)
[2017-10-07] MEDS: THIAMINE HCL 100 MG TAB PO SCH (07:50)
[2017-10-07] MEDS: PAROXETINE 20 MG TAB PO SCH (07:50)
[2017-10-07] MEDS: CALCIUM 600MG + VIT D 400 IU TAB PO SCH ×2 (07:50→21:35)
[2017-10-07] MEDS: AZITHROMYCIN 250 MG TAB PO SCH (07:50)
[2017-10-07] MEDS: METOPROLOL SUCC 50MG EXT REL TAB PO SCH (07:50)
[2017-10-07] MEDS: PANTOprazole SOD 40 MG TAB PO SCH (07:50)
[2017-10-07] MEDS: CYCLOBENZAPRINE HCL 5 MG TAB PO SCH ×2 (07:50→21:36)
[2017-10-07] MEDS: FLUTICASONE/SALMETEROL 250/50 (ADVAIR) 14 PUFF/1 INHALER INH SCH ×2 (07:50→21:37)
[2017-10-07] MEDS: ASCORBIC ACID 500 MG TAB PO SCH (07:50)
[2017-10-07] MEDS: FERROUS SULFATE 325 MG TAB PO SCH (07:50)
[2017-10-07 08:03] LABS: ALBUMIN 2.7 gm/dl (3.4-5.0); CALCIUM 8.2 mg/dl (8.5-10.1); CREATININE 0.86 mg/dl (0.60-1.40)
[2017-10-07 08:04] LABS: TOTAL PROTEIN 6.3 gm/dl (6.4-8.2)
[2017-10-07 08:13] LABS: EOS % 0.1 %; EOS ABS # 0.01 K/uL (0-0.5); IG# 0.05 K/uL (0.00-0.02); MONO % 8.8 %; MONO ABS # 1.02 K/uL (0.11-0.59); NEUT % 84.7 %; NEUT ABS # 9.82 K/uL (1.4-6.5)
[2017-10-07] MEDS ORDERED: FERROUS SULFATE 325 MG TAB PO SCH (09:00)
--- NOTE | 2017-10-07 11:34 | Cardiology Follow-Up ---
Subjective General Date of Service: Oct 07, 2017. Chief Complaint: COPD exacerbation Pt evaluation today including: conversation w/ patient, physical exam, chart review, lab review, review of studies, review of inpatient medication list History of Present Illness The patient is a 61 year old male seen in follow-up. Reports shortness of breath with wheezing overnight. Denies chest discomfort. Occasional palpitations reported. Telemetry reveals sinus rhythm, sinus arrhythmia, sinus tachycardia. No dysrhythmias. Patient offers no new complaints at this time. Allergies Coded Allergies: Shellfish (Verified Allergy, Severe, SOB & SWOLLEN GLANDS FROM SHELLFISH, 10/03/17) Onion (Verified Allergy, Unknown, RASH AND GI UPSET, 10/03/17) Captopril (Verified Adverse Reaction, Intermediate, "felt bad", 10/03/17) Codeine (Verified Adverse Reaction, Unknown, nausea; nightmares, 10/03/17) Social History Smoking Status: Current Every Day Smoker Hx Tobacco Use In Past Year?: Yes Hx Alcohol Use - Type And Amou: No (rarely ) Hx Substance Use - Type And Am: No Problem List Medical Problems: (1) Chest pain Status: Acute (2) COPD (chronic obstructive pulmonary disease) Status: Chronic (3) Dehydration Status: Acute (4) Fall Status: Acute (5) Fracture of rib of right side Status: Acute (6) Laceration of right forearm Status: Acute (7) Multiple fractures of ribs, right side, initial encounter forclosed fracture Status: Acute (8) Postoperative wound dehiscence Status: Acute (9) SOB (shortness of breath) Status: Acute (10) Vomiting Status: Acute Review of Systems Respiratory: + cough, + sputum, + wheezing, + shortness of breath, + dyspnea on exertion, No dyspnea at rest, No hemoptysis Cardiac: No chest pain, No orthopnea, No PND, No edema, No claudication, No palpitations Physical Exam Vital Signs Last Vital Signs Documentation Date Time Temp Pulse Resp B/P (MAP) Pulse Ox O2 Delivery O2 Flow Rate FiO2 10/07/17 11:10 36.5 82 18 162/97 (118) 92 Room Air 10/07/17 07:45 4.0 Physical Exam Constitutional: Level of Distress: NAD, chronically ill Head: normocephalic, atraumatic Neck: supple Lungs: Auscultation: expiratory wheezing Cardiovascular: Heart Auscultation: RRR, normal S1, normal S2, no murmurs Peripheral Pulses: Radial Pulse: normal on the right Dorsalis Pedis Pulse: normal on the left, normal on the right Abdomen: Bowel Sounds: normal Inspection & Palpation: soft, non-distended, no tenderness, guarding & rebound Extremities: no edema, no clubbing, no ulcers Assessment and Plan Assessment and Plan IMPRESSION: 1. Palpitations secondary to cardiac awareness, sinus tachycardia in the setting of COPD exacerbation, hypoxia, and anemia. - no sustained dysrhythmia on telemetry 2. History of normal coronary arteries by cardiac catheterization in 2013 in the setting of abnormal Lexiscan nuclear stress test. 3. Right ventricular enlargement secondary to severe underlying chronic obstructive pulmonary disease with acute exacerbation in the setting of anemia and hypoxemia. 4. Active tobacco abuse. 5. CT evidence of aspiration with fluid and debris noted in the lower airways. PLAN AND RECOMMENDATIONS: Continue beta shravan therapy. I will continue to monitor telemetry. Recommend maintaining hemoglobin greater than 8.0gm/dL. Management of COPD exacerbation as per pulmonary recommendations. Laboratory Results Last 24 Hours Test 10/07/17 07:17 10/07/17 07:18 Sodium Level 137 mmol/L Potassium Level 4.0 mmol/L Chloride Level 100 mmol/L Carbon Dioxide Level 31 mmol/L Anion Gap 6.0 mmol/L Blood Urea Nitrogen 22 mg/dl Creatinine 0.86 mg/dl Est Creatinine Clear Calc Drug Dose 92.5 ml/min Estimated GFR () 107.0 Estimated GFR (Non- 92.3 BUN/Creatinine Ratio 25.5 Random Glucose 131 mg/dl Calcium Level 8.2 mg/dl Magnesium Level 1.9 mg/dl Total Bilirubin 0.3 mg/dl Aspartate Amino Transf (AST/SGOT) 22 U/L Alanine Aminotransferase (ALT/SGPT) 56 U/L Alkaline Phosphatase 80 U/L Total Protein 6.3 gm/dl Albumin 2.7 gm/dl Globulin 3.6 gm/dl Albumin/Globulin Ratio 0.8 Procalcitonin < 0.05 ng/ml White Blood Count 11.60 K/uL Red Blood Count 3.72 M/uL Hemoglobin 8.3 g/dL Hematocrit 28.7 % Mean Corpuscular Volume 77.2 fL Mean Corpuscular Hemoglobin 22.3 pg Mean Corpuscular Hemoglobin Concent 28.9 g/dl Platelet Count 194 K/uL Mean Platelet Volume 8.5 fL Neutrophils (%) (Auto) 84.7 % Lymphocytes (%) (Auto) 6.0 % Monocytes (%) (Auto) 8.8 % Eosinophils (%) (Auto) 0.1 % Basophils (%) (Auto) 0.0 % Neutrophils # (Auto) 9.82 K/uL Lymphocytes # (Auto) 0.70 K/uL Monocytes # (Auto) 1.02 K/uL Eosinophils # (Auto) 0.01 K/uL Basophils # (Auto) 0.00 K/uL RDW Standard Deviation 54.3 fL RDW Coefficient of Variation 19.5 % Immature Granulocyte % (Auto) 0.4 % Immature Granulocyte # (Auto) 0.05 K/uL Nucleated RBC Absolute Count (auto) 0.09 K/uL Nucleated Red Blood Cells % 0.7 % Polychromasia 1+ Hypochromasia PRESENT Anisocytosis PRESENT
--- NOTE | 2017-10-07 11:55 | PULMONARY PROGRESS NOTE ---
DATE: 10/07/2017 SUBJECTIVE: The patient reports that his anxiety was lessened by a medication given to him last night, but he was unable to sleep well and had 2 episodes where he felt acutely dyspneic and a sensation that there is something he is unable to expectorate from his bronchial tubes that needs to "come out." He became tachycardic and hypertensive, according to the patient and was given his maintenance inhaler use. The patient has a whole host of somatic symptoms. Echocardiogram done during this admission shows the right ventricle severely dilated with its function severely reduced with evidence of right ventricular pressure volume overload. The LVEF is normal, but there is suggestion of pulmonary hypertension. CTA shows no evidence of pulmonary thromboembolic disease and small bilateral pleural effusions are noted along with advanced emphysema. There were foci of tree-in-bud nodularity in the right upper lobe and the lung bases with the right upper lobe improved since June, but the bases appearing worse. The patient's hemoglobin is stable at 8.3 and 28.7, but still compromised. PHYSICAL EXAMINATION: CURRENT VITAL SIGNS: Temperature 36.6, pulse 95 and regular, respiratory rate 18, blood pressure 148/79 and 98% sats on room air. SKIN: Warm and dry. HEENT: Atraumatic, normocephalic, PERRLA, EOMI. Conjunctivae pale. Sclerae nonicteric. Fundi benign. Tympanic membranes within normal limits. Pharyngeal exam intact. CHEST: Lungs - distant P&A with scattered rhonchi in right base. CARDIAC: Sinus tachycardia, no S3. ABDOMEN: Soft, scaphoid. EXTREMITIES: Trace pedal edema. No clubbing or peripheral cyanosis. NEUROLOGIC: Intact. LABORATORY DATA: As noted. OVERALL ASSESSMENT: A 61-year-old with severe chronic obstructive pulmonary disease, anemia from gastrointestinal blood loss and evidence for right ventricular overload and severe pulmonary hypertension with persistent ongoing respiratory symptomatology despite aggressive medical management. The patient is currently on p.o. prednisone, Protonix, thiamine and Flexeril for anxiety. His blood pressure is reasonably well controlled. He is receiving aerosolized bronchodilator and oral iron. The patient may be a candidate for intravenous iron or Venofer as I questioned his oral absorption, certainly having hemoglobin above 10 in a patient with severe chronic obstructive pulmonary disease and right ventricular overload would be adventitious. The patient may benefit from bronchoscopic evaluation, but he remains on high risk. Will discuss further with scheduling and see if we can schedule him for tomorrow or Sunday a.m.
[2017-10-07] MEDS ORDERED: IRON SUCROSE INJ 100 MG in SODIUM CHLORIDE 0.9% 100ML 100 ML IV SCH (14:15)
[2017-10-07] MEDS ORDERED: IRON SUCROSE INJ 200 MG in SODIUM CHLORIDE 0.9% 100ML IV SCH (14:30)
--- NOTE | 2017-10-07 17:51 | Progress Note ---
Internal Med Progress Note Date of Service: Oct 07, 2017. Provider Documentation: Subjective: Patient reports that he was able to sleep better overnight. Patient was concerned about dyspnea with exertion. Patient was evaluated by pulmonary service and was told that he may be getting bronchoscopic evaluation Physical Exam: General Appearance: awake and alert Head: normocephalic, Atraumatic Eyes: normal inspection, EOMI, Neck: supple, Trachea midline Respiratory/Chest: good air entry, no wheezing or crackles Cardiovascular: S1, S2, No murmur Abdomen/GI:Soft, Non tender, Bowel sounds present Extremities/Musculoskelatal:no neurological deficits of extremities or at the waist ASSESSMENT & PLAN: This is a 61 year old M who presents with syncope with initial admitting differential that syncope could have been related to patient's chronic anemia and patient s/p 1 unit of PRBC which raised Hgb 7.4 to 8 and subsequently being evaluated by Gastroenterology service on 10/04/17 which recommends celiac disease testing and small bowel studies rather than direct visualization. During the evaluation, patient complained of persistent back pain for which he has been taking chronic high dose narcotics at home for years. Patient in the recent past with abnormal MRI studies in August 2017 acute superior endplate compression fracture and Moderate to severe disc space narrowing and endplate degenerative changes at L5-S1. Carotid Ultrasound: Atherosclerosis without hemodynamically significant stenosis seen within the carotid arteries patient's echocardiogram, which was ordered as part of the syncope workup, was reported to be grossly abnormal by cardiology service. * The right ventricle is severely dilated. * The right ventricular systolic function is severely reduced. * Flattened septum is consistent with RV pressure/volume overload. * Left ventricular systolic function is normal. * The LV Ejection Fraction = 55-60%. * There is no significant tricuspid regurgitation and therefore Doppler assessment does not allow estimation of the pulmonary artery systolic pressure , however, the 2d findings are suggestive of pulmonary hypertension. * Compared to the images of the prior study dated 06/25/17, there has been interval development of severe right sided cardiac chamber enlargement with evidence of right ventricular pressure and volume overload, right ventricular strain pattern. Cardiology service advised CTA to rule out pulmonary embolism as cause for the right heart strain CTA was performed and no pulmonary embolism found CTA IMPRESSIONs: 1. Motion compromised examination. 2. There is no evidence of central pulmonary embolus in the main or lobar pulmonary arteries. Evaluation of the peripheral branches is severely degraded by motion artifact. 3. Cardiomegaly and advanced emphysema. 4. Small pleural effusions. 5. There are foci of tree-in-bud nodularity seen in the right upper lobe and at both lung bases. This has improved in the right upper lobe from 07/26/2017 and has worsened at the lung bases. The appearance suggests a chronic infectious/ inflammatory pneumonitis consulted pulmonary service on abnormalities of right upper lobe and lung bases as seen on CTA. Patient is also receiving nebs, empiric Azithromycin for admission differential diagnosis of bronchitis vs mild COPD exacerbation; recommendations to Continue bronchodilators including Advair, Pulmicort, and duo nebs,Continue guaifenesin, Methylprednisolone 40 mg IV tid. Pulmonary service evaluation on 10/07/17 suggests possibility of bronchoscopy Other non lung related CTA findings: 1) Upper abdomen: A 7.4 cm cyst arises from the upper pole of the left kidney. A small hiatal hernia is noted. A 1.3 cm hypervascular lesion is seen in the liver image #35. This likely represents a flash filling hemangioma. A 1.7 cm cyst is seen in the right hepatic lobe. 2) Skeletal structures: The skeletal structures are osteopenic. There are numerous healed right-sided rib fractures. Degenerative change and hyperkyphosis are noted in the thoracic spine. Numerous compression deformities are identified. No lytic or blastic bony lesions are seen. Patient has been evaluated by Psychiatry and Pain Management on 10/05/17 for disorientation and back pain management Anemia appears to be from iron deficiency. small bowel study unremarkable, celiac testing pending results. Cardiology service on 10/06/17 recommends that patient's Hgb to be 8 and above. Pulmonary evaluation on 10/07/17 commented about possible benefits of obtaining Hgb of 10 and starting IV Venofer. Oral iron to be supplemented by IV venofer with first 200 mg to be given on 10/07/17 Cardiology service was asked on 10/06/17 to evaluate role of stress test with patient's exertional dyspnea and pounding sensations of the chest: Cardiology service reports no role for stress testing and that symptoms likely related to anemia and pulmonary health issues. Oral iron to be supplemented by IV venofer with first 200 mg to be given on 10/07/17 HTN: BP controlled, continue metoprolol Acute kidney injury resolved with IV fluids DVT PROPHYLAXIS: SCDs due to anemia Disposition: no syncopal episodes in the hospital but patient has exertional dyspnea accompanied by pounding sensations of the heart, awaiting further pulmonary recommendations and possibly will be candidate for bronchoscopy. Will supplement oral iron with IV venofer to improve anemia without excessive blood transfusions Vital Signs: Date Time Temp Pulse Resp B/P (MAP) Pulse Ox O2 Delivery O2 Flow Rate FiO2 10/07/17 16:00 Room Air 10/07/17 15:19 36.6 86 20 168/94 (118) 93 10/07/17 11:40 Room Air 10/07/17 11:10 36.5 82 18 162/97 (118) 92 Room Air 10/07/17 07:45 Room Air 10/07/17 07:45 36.6 95 18 148/79 (102) 98 4.0 152/80 (104) 152/79 (103) 10/07/17 04:00 Room Air 10/07/17 03:21 36.5 94 18 138/80 (99) 10/07/17 00:00 36.4 94 18 153/82 (105) 92 Room Air 10/07/17 00:00 Room Air 10/06/17 20:51 92 162/90 (114) 94 Nasal Cannula 2.0 10/06/17 20:00 92 Room Air 10/06/17 19:37 36.5 91 18 180/95 (123) 92 Room Air 10/06/17 18:01 70 18 173/104 (127) 92 Room Air Lab Results: Results Past 24 Hours Test 10/07/17 07:17 10/07/17 07:18 Range/Units Sodium Level 137 136-145 mmol/L Potassium Level 4.0 3.5-5.1 mmol/L Chloride Level 100 98-107 mmol/L Carbon Dioxide Level 31 21-32 mmol/L Anion Gap 6.0 3-11 mmol/L Blood Urea Nitrogen 22 7-18 mg/dl Creatinine 0.86 0.60-1.40 mg/dl Est Creatinine Clear Calc Drug Dose 92.5 ml/min Estimated GFR () 107.0 Estimated GFR (Non- 92.3 BUN/Creatinine Ratio 25.5 10-20 Random Glucose 131 70-99 mg/dl Calcium Level 8.2 8.5-10.1 mg/dl Magnesium Level 1.9 1.8-2.4 mg/dl Total Bilirubin 0.3 0.2-1 mg/dl Aspartate Amino Transf (AST/SGOT) 22 15-37 U/L Alanine Aminotransferase (ALT/SGPT) 56 12-78 U/L Alkaline Phosphatase 80 45-117 U/L Total Protein 6.3 6.4-8.2 gm/dl Albumin 2.7 3.4-5.0 gm/dl Globulin 3.6 2.5-4.0 gm/dl Albumin/Globulin Ratio 0.8 0.9-2 Procalcitonin < 0.05 0-0.5 ng/ml White Blood Count 11.60 4.8-10.8 K/uL Red Blood Count 3.72 4.7-6.1 M/uL Hemoglobin 8.3 14.0-18.0 g/dL Hematocrit 28.7 42-52 % Mean Corpuscular Volume 77.2 80-100 fL Mean Corpuscular Hemoglobin 22.3 25-34 pg Mean Corpuscular Hemoglobin Concent 28.9 32-36 g/dl Platelet Count 194 130-400 K/uL Mean Platelet Volume 8.5 7.4-10.4 fL Neutrophils (%) (Auto) 84.7 % Lymphocytes (%) (Auto) 6.0 % Monocytes (%) (Auto) 8.8 % Eosinophils (%) (Auto) 0.1 % Basophils (%) (Auto) 0.0 % Neutrophils # (Auto) 9.82 1.4-6.5 K/uL Lymphocytes # (Auto) 0.70 1.2-3.4 K/uL Monocytes # (Auto) 1.02 0.11-0.59 K/uL Eosinophils # (Auto) 0.01 0-0.5 K/uL Basophils # (Auto) 0.00 0-0.2 K/uL RDW Standard Deviation 54.3 36.4-46.3 fL RDW Coefficient of Variation 19.5 11.5-14.5 % Immature Granulocyte % (Auto) 0.4 % Immature Granulocyte # (Auto) 0.05 0.00-0.02 K/uL Nucleated RBC Absolute Count (auto) 0.09 0-0 K/uL Nucleated Red Blood Cells % 0.7 % Polychromasia 1+ Hypochromasia PRESENT Anisocytosis PRESENT
[2017-10-07] MEDS: HydrALAZINE HCL 20 MG/ML VIAL IV. PRN (21:35)
[2017-10-08] MEDS: OXYCODONE/ACETAMINOPHEN 10/325MG TAB PO PRN ×4 (03:29→23:11)
[2017-10-08 03:45] VITALS: BP 155/85; PULSE 94; TEMP 36.4; O2SAT 91
[2017-10-08 07:30] VITALS: BP 166/82; PULSE 90; TEMP 36.5; O2SAT 98
[2017-10-08] MEDS: FLUTICASONE/SALMETEROL 250/50 (ADVAIR) 14 PUFF/1 INHALER INH SCH ×2 (07:57→20:29)
[2017-10-08] MEDS: ASCORBIC ACID 500 MG TAB PO SCH (07:57)
[2017-10-08] MEDS: THIAMINE HCL 100 MG TAB PO SCH (07:57)
[2017-10-08] MEDS: METOPROLOL SUCC 50MG EXT REL TAB PO SCH (07:57)
[2017-10-08] MEDS: PANTOprazole SOD 40 MG TAB PO SCH (07:57)
[2017-10-08] MEDS: PAROXETINE 20 MG TAB PO SCH (07:57)
[2017-10-08] MEDS: CYCLOBENZAPRINE HCL 5 MG TAB PO SCH ×2 (07:57→20:30)
[2017-10-08] MEDS: CALCIUM 600MG + VIT D 400 IU TAB PO SCH ×2 (07:57→20:29)
[2017-10-08] MEDS ORDERED: LORAZEPAM INJ 0.5 MG in SYRINGE 0.25 ML IV ONE (10:35)
[2017-10-08 10:37] LABS: HEMATOCRIT 31.7 % (42-52); MEAN CELL VOLUME 78.3 fL (80-100); MEAN CORPUSCULAR HEMOGLOBIN 22.2 pg (25-34); MEAN CORPUSCULAR HGB CONC 28.4 g/dl (32-36); MEAN PLATELET VOLUME 8.7 fL (7.4-10.4); NUCLEATED RED BLOOD CELL ABS 0.05 K/uL (0-0); PLATELET COUNT 230 K/uL (130-400); RED CELL DISTRIBUTION WIDTH CV 20.5 % (11.5-14.5); RED CELL DISTRIBUTION WIDTH SD 57.3 fL (36.4-46.3); WHITE BLOOD COUNT 10.33 K/uL (4.8-10.8)
[2017-10-08] MEDS ORDERED: MAGNESIUM SULFATE 1GM / D5W 1 GM in PREMIXED IN D5W 100 ML IV ONE (11:15)
[2017-10-08 11:50] VITALS: BP 151/84; PULSE 80; TEMP 36.4; O2SAT 97
--- NOTE | 2017-10-08 13:53 | Progress Note ---
Internal Med Progress Note Date of Service: Oct 08, 2017. Provider Documentation: Subjective: Patient again walked to bathroom and expressed symptoms of exertional dsypnea and again having pounding sensations of chest. EKG did not show evidence of ischemia and troponins negative. Had discussions with patient bout anemia management and whether blood transfusion needed but CBC returned with imporving Hgb to 9 and improved platelets and suggests that iron supplements have helped with blood counts. Patient given Ativan for anxiety. Reinforced that dilaudid is not medically indicated in this situation Physical Exam: General Appearance: awake and alert Head: normocephalic, Atraumatic Eyes: normal inspection, EOMI, Neck: supple, Trachea midline Respiratory/Chest: good air entry, no wheezing or crackles Cardiovascular: S1, S2, No murmur Abdomen/GI:Soft, Non tender, Bowel sounds present Extremities/Musculoskelatal:no neurological deficits of extremities or at the waist ASSESSMENT & PLAN: This is a 61 year old M who presents with syncope with initial admitting differential that syncope could have been related to patient's chronic anemia and patient s/p 1 unit of PRBC which raised Hgb 7.4 to 8 and subsequently being evaluated by Gastroenterology service on 10/04/17 which recommends celiac disease testing and small bowel studies rather than direct visualization. During the evaluation, patient complained of persistent back pain for which he has been taking chronic high dose narcotics at home for years. Patient in the recent past with abnormal MRI studies in August 2017 acute superior endplate compression fracture and Moderate to severe disc space narrowing and endplate degenerative changes at L5-S1. Carotid Ultrasound: Atherosclerosis without hemodynamically significant stenosis seen within the carotid arteries patient's echocardiogram, which was ordered as part of the syncope workup, was reported to be grossly abnormal by cardiology service. * The right ventricle is severely dilated. * The right ventricular systolic function is severely reduced. * Flattened septum is consistent with RV pressure/volume overload. * Left ventricular systolic function is normal. * The LV Ejection Fraction = 55-60%. * There is no significant tricuspid regurgitation and therefore Doppler assessment does not allow estimation of the pulmonary artery systolic pressure , however, the 2d findings are suggestive of pulmonary hypertension. * Compared to the images of the prior study dated 06/25/17, there has been interval development of severe right sided cardiac chamber enlargement with evidence of right ventricular pressure and volume overload, right ventricular strain pattern. Cardiology service advised CTA to rule out pulmonary embolism as cause for the right heart strain CTA was performed and no pulmonary embolism found CTA IMPRESSIONs: 1. Motion compromised examination. 2. There is no evidence of central pulmonary embolus in the main or lobar pulmonary arteries. Evaluation of the peripheral branches is severely degraded by motion artifact. 3. Cardiomegaly and advanced emphysema. 4. Small pleural effusions. 5. There are foci of tree-in-bud nodularity seen in the right upper lobe and at both lung bases. This has improved in the right upper lobe from 07/26/2017 and has worsened at the lung bases. The appearance suggests a chronic infectious/ inflammatory pneumonitis consulted pulmonary service on abnormalities of right upper lobe and lung bases as seen on CTA. Patient is also receiving nebs, empiric Azithromycin for admission differential diagnosis of bronchitis vs mild COPD exacerbation; recommendations to Continue bronchodilators including Advair, Pulmicort, and duo nebs,Continue guaifenesin, Methylprednisolone 40 mg IV tid. Pulmonary service evaluation on 10/07/17 suggests possibility of bronchoscopy Other non lung related CTA findings: 1) Upper abdomen: A 7.4 cm cyst arises from the upper pole of the left kidney. A small hiatal hernia is noted. A 1.3 cm hypervascular lesion is seen in the liver image #35. This likely represents a flash filling hemangioma. A 1.7 cm cyst is seen in the right hepatic lobe. 2) Skeletal structures: The skeletal structures are osteopenic. There are numerous healed right-sided rib fractures. Degenerative change and hyperkyphosis are noted in the thoracic spine. Numerous compression deformities are identified. No lytic or blastic bony lesions are seen. Patient has been evaluated by Psychiatry and Pain Management on 10/05/17 for disorientation and back pain management. Have reinforced with patient that dilaudid is not needed for dyspnea symptoms and that his back symptoms is to be managed with Dilaudid as per pain management Anemia appears to be from iron deficiency. small bowel study unremarkable, celiac testing pending results. Cardiology service on 10/06/17 recommends that patient's Hgb to be 8 and above. Pulmonary evaluation on 10/07/17 commented about possible benefits of obtaining Hgb of 10 and starting IV Venofer. Oral iron to be supplemented by IV venofer with first 200 mg to be given on 10/07/17. Hgb on 10/08/17 is now 9. Continue oral iron supplements Cardiology service was asked on 10/06/17 to evaluate role of stress test with patient's exertional dyspnea and pounding sensations of the chest: Cardiology service reports no role for stress testing and that symptoms likely related to anemia and pulmonary health issues. HTN: BP controlled, continue metoprolol Acute kidney injury resolved with IV fluids DVT PROPHYLAXIS: SCDs due to anemia Disposition: no syncopal episodes in the hospital but patient has exertional dyspnea accompanied by pounding sensations of the heart, awaiting further pulmonary recommendations and possibly will be candidate for bronchoscopy. Hgb is improving on iron supplements Vital Signs: Date Time Temp Pulse Resp B/P (MAP) Pulse Ox O2 Delivery O2 Flow Rate FiO2 10/08/17 11:55 Nasal Cannula 10/08/17 11:50 36.4 80 18 151/84 (106) 97 Nasal Cannula 2.0 10/08/17 07:45 Room Air 10/08/17 07:30 36.5 90 18 166/82 (110) 98 Room Air 10/08/17 04:00 Room Air 10/08/17 03:45 36.4 94 18 155/85 (108) 91 Room Air 10/08/17 00:00 Room Air 10/07/17 23:51 36.5 97 18 132/74 (93) 93 Room Air 10/07/17 20:00 Room Air 10/07/17 19:11 36.5 88 18 168/95 (119) 92 Room Air 10/07/17 16:00 Room Air 10/07/17 15:19 36.6 86 20 168/94 (118) 93 Lab Results: Results Past 24 Hours Test 10/08/17 10:06 Range/Units White Blood Count 10.33 4.8-10.8 K/uL Red Blood Count 4.05 4.7-6.1 M/uL Hemoglobin 9.0 14.0-18.0 g/dL Hematocrit 31.7 42-52 % Mean Corpuscular Volume 78.3 80-100 fL Mean Corpuscular Hemoglobin 22.2 25-34 pg Mean Corpuscular Hemoglobin Concent 28.4 32-36 g/dl RDW Standard Deviation 57.3 36.4-46.3 fL RDW Coefficient of Variation 20.5 11.5-14.5 % Platelet Count 230 130-400 K/uL Mean Platelet Volume 8.7 7.4-10.4 fL Nucleated RBC Absolute Count (auto) 0.05 0-0 K/uL Nucleated Red Blood Cells % 0.5 % Magnesium Level 1.7 1.8-2.4 mg/dl Troponin I < 0.015 0-0.045 ng/ml
[2017-10-08] MEDS ORDERED: FERROUS SULFATE 325 MG TAB PO ONE (14:00)
[2017-10-08] MEDS ORDERED: NURSING VERBAL MED ORDER ONE (14:15)
--- NOTE | 2017-10-08 14:19 | Pulmonology Progress Note ---
Pulmonary Progress Note Date of Service Oct 08, 2017. Attending Dr. Adair Subjective Patient notes continued dyspnea with exertion and even times at rest. We did have a long conversation any notes ever since April of 2017 he has been experiencing increasing dyspnea on exertion in episodes of shortness of breath and syncope with any maneuver that increases his intrathoracic pressure. He also notes increasing bilateral lower extremity edema over this time. Speaking to on the patient also notes that he is been on nocturnal oxygen for the past 4 years but has been intermittently using it even during the days over the past 2 years. Objective Patient is able to sit up in bed but does become tachypneic during our conversation and intermittently uses accessory muscles for breathing: VS: I/Os: +2.6L SaO2%: 91-98 FiO2: 2L RR: 18 HR: 80-94 Resp: Mild crackles at the bases bilaterally Card: S1-S2 regular rate rhythm distant heart sounds Abd: Positive bowel sounds soft nontender mildly distended Ext: No clubbing cyanosis or edema appreciated General: Awake alert orientated x3 Studies WBC: [id number] PLT: [id number] H/H: Bun/Cr: >>25.5 M.7 AST: 3822 ALT: 5956 T Bili: 0.3 T Pro: <6.3 Alb: <2.7 Procalcitonin: <0.05 INflu A&B: negative EKG (10/08/17): NSR Nocturnal Oximetry report (10/06/17): max single event where SaO2 < 88% was 192sec Cardiac Echo (10/04/17) LV: EF= 55-60%, mild LVH RV: severely dilated with severely reduced function RA: severely dilated, estimated pressure of 15mmHg PV: WNL Grade one diastolic dysfunction Sever RV changes since cardiac echo on 06/25/17 Cardiac Cath 04/03/14 Clear Coronaries LVED pressure: 5 CTA Chest (10/04/17) compared to 07/26/17 No evidence for PE Advance emphysema Small bilateral pleural effusions Improvement in the RUL consolidation Bronchiectatic/infiltrative process in the bilateral lower lobes Tree-n-bud changes in the Bilateral Lower lobes Pulmonary function studies 06/18/2015 Pre post %Blackwell FEV1/FVC 48 54 FEV1 1.73/43% 2.17 +25 FVC 3.59/67% 3.98 +11 SVC 3.42/64% TLC 9.36/121% RV/TLC 63 DLCO 49% DL/VA Toxicology: Urine opiates +: 05/29/17 Oxycodone + 05/29/17 Hydromorphone + 05/29/17 Marijuana + 05/29/17 ETOH + 01/31/17 (163) Active pulmonary Medications: #1 Prednisone 40mg QD #2 Protonix 40mg #3 Albuterol/Atrovent Neb QID prn #4 Robitusin DM #5 Advair 250/50 Assessment & Plan 61-year-old male admitted with notable hypoxemia and syncopal episode: 1. Pulmonary Hypertension: By the patient's history, laps, cardiac catheterization and echocardiogram patient does have signs consistent with right ventricular strain and pulmonary hypertension. The question what is the etiology/group for this patient's pulmonary hypertension. This is most likely group 3/pulmonary induced but there was a dramatic change in this patient's echocardiogram from 07/26/2017 to 10/04/2017 which is also consistent with his notable functional decline. At this time I do suggest we obtain a right heart catheterization for further evaluation of this patient's etiology. It is possible this patient may require evaluation by a transplant team if he does have group 3 induced pulmonary hypertension with associated cor pulmonale. 2. COPD: I have been able to obtain the patient's previous pulmonary function studies performed 06/23/2015 which do note via ATS criteria severe obstructive ventilatory disease but does show a reversible component based off a 25 % improvement in the FEV1. At this time continue current prednisone, nebulizers and will increase his Advair from 250/50 to 500/50. Per documentation from Dr. Karlos jacobs the patient was tried on Spiriva in the past but had severe dry mouth and changes taste buds. Patient remembers this time is not interested in doing introducing a LAMA into his current regimen. As the patient does not have signs and symptoms consistent with chronic bronchiectasis Daliresp as well as daily or even 3 times weekly azithromycin are not indicated. 3. Hypoxia: Continue on current medications and will have to monitor the patient's weight as he is notably 2.6 liters positive since his stay. We should continue to try to monitor the patient's ins and outs and maintain an overall negative fluid balance. Data Medications: Current Inpatient Medications Medications (Trade) Dose Ordered Sig/Tyree Route Start Time Stop Time Status Last Admin Dose Admin Ondansetron HCl (Zofran Inj) 4 mg Q6H PRN IV 10/03/17 16:30 11/02/17 16:29 Ascorbic Acid (Vitamin C Tab) 500 mg DAILY PO 10/04/17 09:00 11/03/17 08:59 10/08/17 07:57 500 MG Metoprolol Succinate (Toprol Xl Tab) 100 mg QAM PO 10/04/17 09:00 11/03/17 08:59 10/08/17 07:57 100 MG Oxycodone/ Acetaminophen (Percocet 10-325MG Tab) 1 tab Q6 PRN PO 10/03/17 18:45 10/17/17 18:44 Future hold 10/08/17 09:50 1 TAB Calcium/Vitamin D (Caltrate Plus Tab) 1 tab BID PO 10/03/17 21:00 11/02/17 20:59 10/08/17 07:57 1 TAB Paroxetine HCl (pAXil TAB) 40 mg DAILY PO 10/04/17 09:00 11/03/17 08:59 10/08/17 07:57 40 MG Salmeterol Xinafoate/ Fluticasone (Advair Diskus 250/50 Inh) 1 puff BID INH 10/03/17 21:00 11/02/17 20:59 10/08/17 07:57 1 PUFF Ferrous Sulfate (Feosol Tab) 325 mg BIDM PO 10/04/17 08:00 11/03/17 07:59 Future hold 10/07/17 07:50 325 MG Sodium Chloride ([place] Nasal [place]) 1 sprays PRN PRN NA 10/04/17 14:30 11/03/17 14:29 Ioversol (Optiray 320) 100 ml UD PRN IV 10/04/17 15:30 10/08/17 15:29 Acetaminophen 100 ml @ 400 mls/hr Q8H PRN IV 10/04/17 19:30 11/03/17 19:29 Guaifenesin/ Dextromethorphan (Robitussin-Dm Syrup) 10 ml Q6H PRN PO 10/04/17 22:30 11/03/17 22:29 10/04/17 22:39 10 ML Menthol (Nice Glenn) 1 glenn Q1H PRN GLENN 10/04/17 22:30 11/03/17 22:29 Haloperidol Lactate (Haldol Inj) 1 mg Q2H PRN IV 10/05/17 06:45 11/04/17 06:44 Lorazepam (Ativan Tab) 1 mg ONE PRN PO 10/05/17 10:45 Albuterol/ Ipratropium (Duoneb) 3 ml QIDR PRN INH 10/06/17 12:00 11/02/17 19:59 10/06/17 11:12 3 ML Cyclobenzaprine HCl (Flexeril Tab) 5 mg BID PO 10/06/17 21:00 11/05/17 20:59 10/08/17 07:57 5 MG Prednisone (PredniSONE TAB) 40 mg DAILY PO 10/07/17 09:00 11/06/17 08:59 10/08/17 07:57 40 MG Pantoprazole Sodium (Protonix Tab) 40 mg QAM PO 10/07/17 09:00 10/10/17 09:01 10/08/17 07:57 40 MG Hydralazine HCl (HydrALAZINE INJ) 10 mg Q6H PRN IV. 10/06/17 19:00 11/05/17 18:59 10/07/17 21:35 10 MG Thiamine HCl (Vitamin B-1 Tab) 100 mg QAM PO 10/07/17 09:00 11/06/17 08:59 10/08/17 07:57 100 MG Iron Sucrose 200 mg/Sodium Chloride 110 ml @ 220 mls/hr TODAY@1430 IV 10/07/17 14:30 11/06/17 14:29 10/07/17 14:40 220 MLS/HR Ferrous Sulfate (Feosol Tab) 325 mg DAILY ONCE PO 10/08/17 14:00 10/08/17 14:01 Vital Signs: Date Time Temp Pulse Resp B/P (MAP) Pulse Ox O2 Delivery O2 Flow Rate FiO2 10/08/17 11:55 Nasal Cannula 10/08/17 11:50 36.4 80 18 151/84 (106) 97 Nasal Cannula 2.0 10/08/17 07:45 Room Air 10/08/17 07:30 36.5 90 18 166/82 (110) 98 Room Air 10/08/17 04:00 Room Air 10/08/17 03:45 36.4 94 18 155/85 (108) 91 Room Air 10/08/17 00:00 Room Air 10/07/17 23:51 36.5 97 18 132/74 (93) 93 Room Air 10/07/17 20:00 Room Air 10/07/17 19:11 36.5 88 18 168/95 (119) 92 Room Air 10/07/17 16:00 Room Air 10/07/17 15:19 36.6 86 20 168/94 (118) 93 Laboratory Results: Last 24 Hours Test 10/08/17 10:06 White Blood Count 10.33 K/uL Red Blood Count 4.05 M/uL Hemoglobin 9.0 g/dL Hematocrit 31.7 % Mean Corpuscular Volume 78.3 fL Mean Corpuscular Hemoglobin 22.2 pg Mean Corpuscular Hemoglobin Concent 28.4 g/dl RDW Standard Deviation 57.3 fL RDW Coefficient of Variation 20.5 % Platelet Count 230 K/uL Mean Platelet Volume 8.7 fL Nucleated RBC Absolute Count (auto) 0.05 K/uL Nucleated Red Blood Cells % 0.5 % Magnesium Level 1.7 mg/dl Troponin I < 0.015 ng/ml
[2017-10-08] MEDS ORDERED: HYDROmorphone INJ 1 MG/ML SYR IV STA (14:50)
[2017-10-08 14:54] VITALS: BP 166/92; PULSE 83; TEMP 36.7; O2SAT 97
[2017-10-08] MEDS: HydrALAZINE HCL 20 MG/ML VIAL IV. PRN (14:59)
[2017-10-08] MEDS: FERROUS SULFATE 325 MG TAB PO SCH (17:21)
[2017-10-08 19:54] VITALS: BP 158/76; PULSE 82; TEMP 36.4; O2SAT 94
[2017-10-08 23:41] VITALS: BP 145/83; PULSE 93; TEMP 36.3; O2SAT 98
[2017-10-09 03:22] VITALS: PULSE 86; O2SAT 97
[2017-10-09] MEDS: ALBUT/IPRATROP 3MG/0.5MG NEB 3 ML VIAL INH PRN (03:22)
[2017-10-09 03:54] VITALS: BP 156/82; PULSE 93; TEMP 36.4; O2SAT 93
[2017-10-09] MEDS: OXYCODONE/ACETAMINOPHEN 10/325MG TAB PO PRN ×3 (05:01→23:00)
[2017-10-09 08:00] VITALS: BP 138/84; PULSE 96; TEMP 36.4; O2SAT 96
[2017-10-09] MEDS: CALCIUM 600MG + VIT D 400 IU TAB PO SCH ×2 (08:38→21:13)
[2017-10-09] MEDS: METOPROLOL SUCC 50MG EXT REL TAB PO SCH (08:38)
[2017-10-09] MEDS: PANTOprazole SOD 40 MG TAB PO SCH (08:38)
[2017-10-09] MEDS: THIAMINE HCL 100 MG TAB PO SCH (08:39)
[2017-10-09] MEDS: FLUTICASONE/SALMETEROL 250/50 (ADVAIR) 14 PUFF/1 INHALER INH SCH ×2 (08:39→21:13)
[2017-10-09] MEDS: CYCLOBENZAPRINE HCL 5 MG TAB PO SCH ×2 (08:39→21:14)
[2017-10-09] MEDS: FERROUS SULFATE 325 MG TAB PO SCH ×2 (08:39→16:56)
[2017-10-09] MEDS: PAROXETINE 20 MG TAB PO SCH (08:40)
[2017-10-09] MEDS: ASCORBIC ACID 500 MG TAB PO SCH (08:40)
[2017-10-09 08:46] LABS: MEAN CORPUSCULAR HGB CONC 28.2 g/dl (32-36); MEAN PLATELET VOLUME 8.7 fL (7.4-10.4); PLATELET COUNT 228 K/uL (130-400)
[2017-10-09 09:09] LABS: ALBUMIN 2.5 gm/dl (3.4-5.0); CREATININE 0.83 mg/dl (0.60-1.40); POTASSIUM 3.4 mmol/L (3.5-5.1)
[2017-10-09 09:15] LABS: TOTAL PROTEIN 5.4 gm/dl (6.4-8.2)
[2017-10-09 09:27] LABS: BASO % 0.1 %; BASO ABS # 0.01 K/uL (0-0.2); EOS % 1.1 %; EOS ABS # 0.11 K/uL (0-0.5); HEMATOCRIT 29.8 % (42-52); HEMOGLOBIN 8.4 g/dL (14.0-18.0); IG# 0.12 K/uL (0.00-0.02); LYMPH % 15.7 %; LYMPH ABS # 1.56 K/uL (1.2-3.4); MEAN CELL VOLUME 78.6 fL (80-100); MEAN CORPUSCULAR HEMOGLOBIN 22.2 pg (25-34); MONO % 11.6 %; MONO ABS # 1.15 K/uL (0.11-0.59); NEUT % 70.3 %; NEUT ABS # 6.97 K/uL (1.4-6.5); NUCLEATED RED BLOOD CELL ABS 0.03 K/uL (0-0); RED CELL DISTRIBUTION WIDTH SD 58.1 fL (36.4-46.3); WHITE BLOOD COUNT 9.92 K/uL (4.8-10.8)
[2017-10-09] MEDS ORDERED: POTASSIUM CHLORIDE 10 MEQ TABCR PO STA (11:33)
[2017-10-09] MEDS ORDERED: LORAZEPAM 0.5 MG TAB PO STA (11:43)
[2017-10-09 11:48] VITALS: BP 169/98; PULSE 82; TEMP 36.5; O2SAT 97
[2017-10-09] MEDS ORDERED: MAGNESIUM SULFATE 1GM / D5W 1 GM in PREMIXED IN D5W 100 ML IV ONE (12:00)
--- NOTE | 2017-10-09 14:24 | Pulmonology Progress Note ---
Pulmonary Progress Note Date of Service Oct 09, 2017. Attending Dr. Adair Subjective No acute changes in last 24 hours per the patient. He continues to have Objective Patient was sitting up in bed able to complete full sentences during our evaluation. He did have to get up and go to the restroom and with ambulation I did note some tachypnea and accessory muscle use. VS: I/Os: +3.4L SaO2%: 93-97 FiO2: 2L RR: 16-26 HR: 82-96 Resp: Mild crackles at the bases bilaterally Card: S1-S2 regular rate rhythm distant heart sounds Abd: Positive bowel sounds soft nontender mildly distended Ext: No clubbing cyanosis or edema appreciated General: Awake alert orientated x3 Studies WBC: 9K PLT: 228K H/H: 8.4/30 Bun/Cr: >>27.7 M.7 Procalcitonin: <0.05 INflu A&B: negative EKG (10/08/17): NSR Nocturnal Oximetry report (10/06/17): max single event where SaO2 < 88% was 192sec Cardiac Echo (10/04/17) LV: EF= 55-60%, mild LVH RV: severely dilated with severely reduced function RA: severely dilated, estimated pressure of 15mmHg PV: WNL Grade one diastolic dysfunction Sever RV changes since cardiac echo on 06/25/17 Cardiac Cath 04/03/14 Clear Coronaries LVED pressure: 5 CTA Chest (10/04/17) compared to 07/26/17 No evidence for PE Advance emphysema Small bilateral pleural effusions Improvement in the RUL consolidation Bronchiectatic/infiltrative process in the bilateral lower lobes Tree-n-bud changes in the Bilateral Lower lobes Pulmonary function studies 06/18/2015 Pre post %Blackwell FEV1/FVC 48 54 FEV1 1.73/43% 2.17 +25 FVC 3.59/67% 3.98 +11 SVC 3.42/64% TLC 9.36/121% RV/TLC 63 DLCO 49% Toxicology: Urine opiates +: 05/29/17 Oxycodone + 05/29/17 Hydromorphone + 05/29/17 Marijuana + 05/29/17 ETOH + 01/31/17 (163) Active pulmonary Medications: #1 Prednisone 30mg QD #2 Protonix 40mg #3 Albuterol/Atrovent Neb QID prn #4 Nevilleitusin DM #5 Advair 250/50 Assessment & Plan 61-year-old male admitted with notable hypoxemia and syncopal episode: 1. Pulmonary Hypertension: The patient most likely has group 3 pulmonary hypertension based off of recent echocardiogram performed 10/04/2017. High probability the patient has cor pulmonale which would be consistent with his notable decline in the last 6-12 months. Still suggest we move forward with right heart catheterization the patient is stable enough per Cardiology. 2. COPD: Per the patient's previous spirometry performed 06/18/2015 based off ATS criteria he has severe obstructive ventilatory disease. At this time the patient's AMIE Index is 5. At this time I suggest we continue his current inhaler nebulizer regimen as well as slow taper in his prednisone over the next 2-3 weeks. Will not initiate a LAMA inhaler as the patient had previous difficulty with severe dry mouth after introducing Spiriva into his regimen. 3. Hypoxia: Continue on current medications and will have to monitor the patient's weight as he is notably 3.4 liters positive since he was admitted. 4. Transplant/Referral: I have spoken to Dr. Aston Iglesias at the [facility] ILD/ transplant service. I have also spoken to the patient and after his discharge [facility] has been gracious enough to evaluate this patient. The Contact Phone number for [facility] is . After this patient is d/c we need to make sure his records are sent to the [facility] system and visit is scheduled. Data Medications: Current Inpatient Medications Medications (Trade) Dose Ordered Sig/Tyree Route Start Time Stop Time Status Last Admin Dose Admin Ondansetron HCl (Zofran Inj) 4 mg Q6H PRN IV 10/03/17 16:30 11/02/17 16:29 Ascorbic Acid (Vitamin C Tab) 500 mg DAILY PO 10/04/17 09:00 11/03/17 08:59 10/09/17 08:40 500 MG Metoprolol Succinate (Toprol Xl Tab) 100 mg QAM PO 10/04/17 09:00 11/03/17 08:59 10/09/17 08:38 100 MG Oxycodone/ Acetaminophen (Percocet 10-325MG Tab) 1 tab Q6 PRN PO 10/03/17 18:45 2/21/18 18:44 Future hold 10/09/17 05:01 1 TAB Calcium/Vitamin D (Caltrate Plus Tab) 1 tab BID PO 10/03/17 21:00 11/02/17 20:59 10/09/17 08:38 1 TAB Paroxetine HCl (pAXil TAB) 40 mg DAILY PO 10/04/17 09:00 11/03/17 08:59 10/09/17 08:40 40 MG Salmeterol Xinafoate/ Fluticasone (Advair Diskus 250/50 Inh) 1 puff BID INH 10/03/17 21:00 11/02/17 20:59 10/09/17 08:39 1 PUFF Ferrous Sulfate (Feosol Tab) 325 mg BIDM PO 10/04/17 08:00 11/03/17 07:59 Future hold 10/09/17 08:39 325 MG Sodium Chloride ([place] Nasal [place]) 1 sprays PRN PRN NA 10/04/17 14:30 11/03/17 14:29 Acetaminophen 100 ml @ 400 mls/hr Q8H PRN IV 10/04/17 19:30 11/03/17 19:29 Guaifenesin/ Dextromethorphan (Robitussin-Dm Syrup) 10 ml Q6H PRN PO 10/04/17 22:30 11/03/17 22:29 10/04/17 22:39 10 ML Menthol (Nice Glenn) 1 glenn Q1H PRN GLENN 10/04/17 22:30 11/03/17 22:29 Haloperidol Lactate (Haldol Inj) 1 mg Q2H PRN IV 10/05/17 06:45 11/04/17 06:44 Albuterol/ Ipratropium (Duoneb) 3 ml QIDR PRN INH 10/06/17 12:00 11/02/17 19:59 10/09/17 03:22 3 ML Cyclobenzaprine HCl (Flexeril Tab) 5 mg BID PO 10/06/17 21:00 11/05/17 20:59 10/09/17 08:39 5 MG Pantoprazole Sodium (Protonix Tab) 40 mg QAM PO 10/07/17 09:00 10/10/17 09:01 10/09/17 08:38 40 MG Hydralazine HCl (HydrALAZINE INJ) 10 mg Q6H PRN IV. 10/06/17 19:00 11/05/17 18:59 10/08/17 14:59 10 MG Thiamine HCl (Vitamin B-1 Tab) 100 mg QAM PO 10/07/17 09:00 11/06/17 08:59 10/09/17 08:39 100 MG Prednisone (PredniSONE TAB) 30 mg DAILY PO 10/10/17 09:00 11/06/17 08:59 Vital Signs: Date Time Temp Pulse Resp B/P (MAP) Pulse Ox O2 Delivery O2 Flow Rate FiO2 10/09/17 12:00 Room Air 10/09/17 11:48 36.5 82 16 169/98 (121) 97 Room Air 10/09/17 08:00 Room Air 10/09/17 08:00 36.4 96 18 138/84 (102) 96 Room Air 10/09/17 04:00 Room Air 10/09/17 03:54 36.4 93 18 156/82 (106) 93 Room Air 10/09/17 03:22 86 26 97 Nasal Cannula 2.0 10/09/17 00:00 Room Air 10/08/17 23:41 36.3 93 20 145/83 (103) 98 2.0 10/08/17 20:00 Room Air 2.0 Nasal Cannula 10/08/17 19:54 36.4 82 18 158/76 (103) 94 Room Air 10/08/17 15:40 Nasal Cannula 2.0 10/08/17 14:54 36.7 83 22 166/92 (116) 97 Nasal Cannula 2.0 Laboratory Results: Last 24 Hours Test 10/09/17 07:54 White Blood Count 9.92 K/uL Red Blood Count 3.79 M/uL Hemoglobin 8.4 g/dL Hematocrit 29.8 % Mean Corpuscular Volume 78.6 fL Mean Corpuscular Hemoglobin 22.2 pg Mean Corpuscular Hemoglobin Concent 28.2 g/dl Platelet Count 228 K/uL Mean Platelet Volume 8.7 fL Neutrophils (%) (Auto) 70.3 % Lymphocytes (%) (Auto) 15.7 % Monocytes (%) (Auto) 11.6 % Eosinophils (%) (Auto) 1.1 % Basophils (%) (Auto) 0.1 % Neutrophils # (Auto) 6.97 K/uL Lymphocytes # (Auto) 1.56 K/uL Monocytes # (Auto) 1.15 K/uL Eosinophils # (Auto) 0.11 K/uL Basophils # (Auto) 0.01 K/uL RDW Standard Deviation 58.1 fL RDW Coefficient of Variation 21.0 % Immature Granulocyte % (Auto) 1.2 % Immature Granulocyte # (Auto) 0.12 K/uL Nucleated RBC Absolute Count (auto) 0.03 K/uL Nucleated Red Blood Cells % 0.3 % Hypersegmented Polys 1+ Hypochromasia PRESENT Anisocytosis PRESENT Microcytosis PRESENT Sodium Level 138 mmol/L Potassium Level 3.4 mmol/L Chloride Level 100 mmol/L Carbon Dioxide Level 31 mmol/L Anion Gap 7.0 mmol/L Blood Urea Nitrogen 23 mg/dl Creatinine 0.83 mg/dl Est Creatinine Clear Calc Drug Dose 102.2 ml/min Estimated GFR () 108.5 Estimated GFR (Non- 93.6 BUN/Creatinine Ratio 27.7 Random Glucose 96 mg/dl Calcium Level 8.0 mg/dl Magnesium Level 1.7 mg/dl Total Bilirubin 0.2 mg/dl Aspartate Amino Transf (AST/SGOT) 14 U/L Alanine Aminotransferase (ALT/SGPT) 40 U/L Alkaline Phosphatase 61 U/L Total Protein 5.4 gm/dl Albumin 2.5 gm/dl Globulin 2.8 gm/dl Albumin/Globulin Ratio 0.9
[2017-10-09] MEDS: HydrALAZINE HCL 20 MG/ML VIAL IV. PRN (14:41)
[2017-10-09 15:12] VITALS: BP 147/63; PULSE 104; TEMP 34.7; O2SAT 96
--- NOTE | 2017-10-09 19:18 | Progress Note ---
Subjective Date of Service: Oct 09, 2017. Subjective Pt evaluation today including: conversation w/ patient, physical exam, lab review, review of studies, conversation w/ it infrastructure consultant, review of inpatient medication list Saw/examined the patient in room 275 appears to be in no distress states he wants Ativan because he is getting anxious I let him know about the plan to d/c him home tomorrow and he is agreeable Problem List Medical Problems: (1) Chest pain Status: Acute (2) COPD (chronic obstructive pulmonary disease) Status: Chronic (3) Dehydration Status: Acute (4) Fall Status: Acute (5) Fracture of rib of right side Status: Acute (6) Laceration of right forearm Status: Acute (7) Multiple fractures of ribs, right side, initial encounter forclosed fracture Status: Acute (8) Postoperative wound dehiscence Status: Acute (9) SOB (shortness of breath) Status: Acute (10) Vomiting Status: Acute Review of Systems Respiratory: + shortness of breath, No cough, No sputum, No wheezing, No dyspnea on exertion Cardiac: No chest pain Psychiatric: + anxiety Medications Current Inpatient Medications Medications (Trade) Dose Ordered Sig/Tyree Route Start Time Stop Time Status Last Admin Dose Admin Ondansetron HCl (Zofran Inj) 4 mg Q6H PRN IV 10/03/17 16:30 11/02/17 16:29 Ascorbic Acid (Vitamin C Tab) 500 mg DAILY PO 10/04/17 09:00 11/03/17 08:59 10/09/17 08:40 500 MG Metoprolol Succinate (Toprol Xl Tab) 100 mg QAM PO 10/04/17 09:00 11/03/17 08:59 10/09/17 08:38 100 MG Oxycodone/ Acetaminophen (Percocet 10-325MG Tab) 1 tab Q6 PRN PO 10/03/17 18:45 10/17/17 18:44 Future hold 10/09/17 17:06 1 TAB Calcium/Vitamin D (Caltrate Plus Tab) 1 tab BID PO 10/03/17 21:00 11/02/17 20:59 10/09/17 08:38 1 TAB Paroxetine HCl (pAXil TAB) 40 mg DAILY PO 10/04/17 09:00 11/03/17 08:59 10/09/17 08:40 40 MG Salmeterol Xinafoate/ Fluticasone (Advair Diskus 250/50 Inh) 1 puff BID INH 10/03/17 21:00 11/02/17 20:59 10/09/17 08:39 1 PUFF Ferrous Sulfate (Feosol Tab) 325 mg BIDM PO 10/04/17 08:00 11/03/17 07:59 Future hold 10/09/17 16:56 325 MG Sodium Chloride ([place] Nasal [place]) 1 sprays PRN PRN NA 10/04/17 14:30 11/03/17 14:29 Acetaminophen 100 ml @ 400 mls/hr Q8H PRN IV 10/04/17 19:30 11/03/17 19:29 10/09/17 18:43 400 MLS/HR Guaifenesin/ Dextromethorphan (Robitussin-Dm Syrup) 10 ml Q6H PRN PO 10/04/17 22:30 11/03/17 22:29 10/04/17 22:39 10 ML Menthol (Nice Glenn) 1 glenn Q1H PRN GLENN 10/04/17 22:30 11/03/17 22:29 Haloperidol Lactate (Haldol Inj) 1 mg Q2H PRN IV 10/05/17 06:45 11/04/17 06:44 Albuterol/ Ipratropium (Duoneb) 3 ml QIDR PRN INH 10/06/17 12:00 11/02/17 19:59 10/09/17 03:22 3 ML Cyclobenzaprine HCl (Flexeril Tab) 5 mg BID PO 10/06/17 21:00 11/05/17 20:59 10/09/17 08:39 5 MG Pantoprazole Sodium (Protonix Tab) 40 mg QAM PO 10/07/17 09:00 10/10/17 09:01 10/09/17 08:38 40 MG Hydralazine HCl (HydrALAZINE INJ) 10 mg Q6H PRN IV. 10/06/17 19:00 11/05/17 18:59 10/09/17 14:41 10 MG Thiamine HCl (Vitamin B-1 Tab) 100 mg QAM PO 10/07/17 09:00 11/06/17 08:59 10/09/17 08:39 100 MG Prednisone (PredniSONE TAB) 30 mg DAILY PO 10/10/17 09:00 11/06/17 08:59 Objective Vital Signs Date Time Temp Pulse Resp B/P (MAP) Pulse Ox O2 Delivery O2 Flow Rate FiO2 10/09/17 16:00 Room Air 10/09/17 15:12 34.7 104 22 147/63 (91) 96 Nasal Cannula 2.0 10/09/17 12:00 Room Air 10/09/17 11:48 36.5 82 16 169/98 (121) 97 Room Air 10/09/17 08:00 Room Air 10/09/17 08:00 36.4 96 18 138/84 (102) 96 Room Air 10/09/17 04:00 Room Air 10/09/17 03:54 36.4 93 18 156/82 (106) 93 Room Air 10/09/17 03:22 86 26 97 Nasal Cannula 2.0 10/09/17 00:00 Room Air 10/08/17 23:41 36.3 93 20 145/83 (103) 98 2.0 10/08/17 20:00 Room Air 2.0 Nasal Cannula 10/08/17 19:54 36.4 82 18 158/76 (103) 94 Room Air Physical Exam General Appearance: no apparent distress Respiratory/Chest: chest non-tender, lungs clear, normal breath sounds, no respiratory distress, no accessory muscle use Cardiovascular: regular rate, rhythm, no edema, no murmur Extremities: normal inspection, no pedal edema Neurologic/Psychiatric: alert, + pertinent finding (+anxious affect) Laboratory Results Last 24 Hours Test 10/09/17 07:54 White Blood Count 9.92 K/uL Red Blood Count 3.79 M/uL Hemoglobin 8.4 g/dL Hematocrit 29.8 % Mean Corpuscular Volume 78.6 fL Mean Corpuscular Hemoglobin 22.2 pg Mean Corpuscular Hemoglobin Concent 28.2 g/dl Platelet Count 228 K/uL Mean Platelet Volume 8.7 fL Neutrophils (%) (Auto) 70.3 % Lymphocytes (%) (Auto) 15.7 % Monocytes (%) (Auto) 11.6 % Eosinophils (%) (Auto) 1.1 % Basophils (%) (Auto) 0.1 % Neutrophils # (Auto) 6.97 K/uL Lymphocytes # (Auto) 1.56 K/uL Monocytes # (Auto) 1.15 K/uL Eosinophils # (Auto) 0.11 K/uL Basophils # (Auto) 0.01 K/uL RDW Standard Deviation 58.1 fL RDW Coefficient of Variation 21.0 % Immature Granulocyte % (Auto) 1.2 % Immature Granulocyte # (Auto) 0.12 K/uL Nucleated RBC Absolute Count (auto) 0.03 K/uL Nucleated Red Blood Cells % 0.3 % Hypersegmented Polys 1+ Hypochromasia PRESENT Anisocytosis PRESENT Microcytosis PRESENT Sodium Level 138 mmol/L Potassium Level 3.4 mmol/L Chloride Level 100 mmol/L Carbon Dioxide Level 31 mmol/L Anion Gap 7.0 mmol/L Blood Urea Nitrogen 23 mg/dl Creatinine 0.83 mg/dl Est Creatinine Clear Calc Drug Dose 102.2 ml/min Estimated GFR () 108.5 Estimated GFR (Non- 93.6 BUN/Creatinine Ratio 27.7 Random Glucose 96 mg/dl Calcium Level 8.0 mg/dl Magnesium Level 1.7 mg/dl Total Bilirubin 0.2 mg/dl Aspartate Amino Transf (AST/SGOT) 14 U/L Alanine Aminotransferase (ALT/SGPT) 40 U/L Alkaline Phosphatase 61 U/L Total Protein 5.4 gm/dl Albumin 2.5 gm/dl Globulin 2.8 gm/dl Albumin/Globulin Ratio 0.9 Assessment and Plan 10/09 I saw the patient, he is doing okay I spoke with pulmonary consult - recommendation made to discharge patient home and have outpatient f/u with Dr. Aston Iglesias at [facility] He continues to display narcotic seeking behavior Hgb stable - he's received one unit of pRBCs He's has severe R ventricular dilatation as well as severely reduced R ventricle will check portable CXR in AM; may require Lasix will add two step for AM; wean O2 as tolerated This is a 61 year old M who presents with syncope with initial admitting differential that syncope could have been related to patient's chronic anemia and patient s/p 1 unit of PRBC which raised Hgb 7.4 to 8 and subsequently being evaluated by Gastroenterology service on 10/04/17 which recommends celiac disease testing and small bowel studies rather than direct visualization. During the evaluation, patient complained of persistent back pain for which he has been taking chronic high dose narcotics at home for years. Patient in the recent past with abnormal MRI studies in August 2017 acute superior endplate compression fracture and Moderate to severe disc space narrowing and endplate degenerative changes at L5-S1. Carotid Ultrasound: Atherosclerosis without hemodynamically significant stenosis seen within the carotid arteries patient's echocardiogram, which was ordered as part of the syncope workup, was reported to be grossly abnormal by cardiology service. * The right ventricle is severely dilated. * The right ventricular systolic function is severely reduced. * Flattened septum is consistent with RV pressure/volume overload. * Left ventricular systolic function is normal. * The LV Ejection Fraction = 55-60%. * There is no significant tricuspid regurgitation and therefore Doppler assessment does not allow estimation of the pulmonary artery systolic pressure , however, the 2d findings are suggestive of pulmonary hypertension. * Compared to the images of the prior study dated 06/25/17, there has been interval development of severe right sided cardiac chamber enlargement with evidence of right ventricular pressure and volume overload, right ventricular strain pattern. Cardiology service advised CTA to rule out pulmonary embolism as cause for the right heart strain CTA was performed and no pulmonary embolism found CTA IMPRESSIONs: 1. Motion compromised examination. 2. There is no evidence of central pulmonary embolus in the main or lobar pulmonary arteries. Evaluation of the peripheral branches is severely degraded by motion artifact. 3. Cardiomegaly and advanced emphysema. 4. Small pleural effusions. 5. There are foci of tree-in-bud nodularity seen in the right upper lobe and at both lung bases. This has improved in the right upper lobe from 07/26/2017 and has worsened at the lung bases. The appearance suggests a chronic infectious/ inflammatory pneumonitis consulted pulmonary service on abnormalities of right upper lobe and lung bases as seen on CTA. Patient is also receiving nebs, empiric Azithromycin for admission differential diagnosis of bronchitis vs mild COPD exacerbation; recommendations to Continue bronchodilators including Advair, Pulmicort, and duo nebs,Continue guaifenesin, Methylprednisolone 40 mg IV tid. Pulmonary service evaluation on 10/07/17 suggests possibility of bronchoscopy Other non lung related CTA findings: 1) Upper abdomen: A 7.4 cm cyst arises from the upper pole of the left kidney. A small hiatal hernia is noted. A 1.3 cm hypervascular lesion is seen in the liver image #35. This likely represents a flash filling hemangioma. A 1.7 cm cyst is seen in the right hepatic lobe. 2) Skeletal structures: The skeletal structures are osteopenic. There are numerous healed right-sided rib fractures. Degenerative change and hyperkyphosis are noted in the thoracic spine. Numerous compression deformities are identified. No lytic or blastic bony lesions are seen. Patient has been evaluated by Psychiatry and Pain Management on 10/05/17 for disorientation and back pain management. Have reinforced with patient that dilaudid is not needed for dyspnea symptoms and that his back symptoms is to be managed with Dilaudid as per pain management Anemia appears to be from iron deficiency. small bowel study unremarkable, celiac testing pending results. Cardiology service on 10/06/17 recommends that patient's Hgb to be 8 and above. Pulmonary evaluation on 10/07/17 commented about possible benefits of obtaining Hgb of 10 and starting IV Venofer. Oral iron to be supplemented by IV venofer with first 200 mg to be given on 10/07/17. Hgb on 10/08/17 is now 9. Continue oral iron supplements Cardiology service was asked on 10/06/17 to evaluate role of stress test with patient's exertional dyspnea and pounding sensations of the chest: Cardiology service reports no role for stress testing and that symptoms likely related to anemia and pulmonary health issues. HTN: BP controlled, continue metoprolol Acute kidney injury resolved with IV fluids DVT PROPHYLAXIS: SCDs due to anemia Disposition: no syncopal episodes in the hospital but patient has exertional dyspnea accompanied by pounding sensations of the heart, awaiting further pulmonary recommendations and possibly will be candidate for bronchoscopy. Hgb is improving on iron supplements
[2017-10-09] MEDS ORDERED: FUROSEMIDE 20 MG TAB PO ONE (19:50)
[2017-10-09 19:58] VITALS: BP 144/82; PULSE 71; TEMP 36.3; O2SAT 99
[2017-10-10 00:16] VITALS: BP 169/90; PULSE 84; TEMP 36.8; O2SAT 99
[2017-10-10 04:00] VITALS: BP 163/86; PULSE 83; TEMP 36.4; O2SAT 95
[2017-10-10] MEDS: OXYCODONE/ACETAMINOPHEN 10/325MG TAB PO PRN ×2 (04:57→11:09)
[2017-10-10 06:59] VITALS: BP 174/89; PULSE 80; TEMP 36.3; O2SAT 94
--- NOTE | 2017-10-10 07:20 | DIAGNOSTIC IMAGING REPORT ---
CHEST ONE VIEW PORTABLE HISTORY: Short of breath. r/o fluid overload COMPARISON: Chest 10/03/2017. FINDINGS: No pneumothorax. The heart remains mildly enlarged. Stable mild volume loss within the right hemithorax. Patchy bibasilar densities and diffuse interstitial thickening have progressed. This suggest mild pulmonary edema. There appear to be small bilateral pleural effusions. Old, healed right-sided rib fractures. IMPRESSION: Increased interstitial thickening and bibasilar densities which suggest mild pulmonary edema. There are trace bilateral pleural effusions. Electronically signed by: Shaun Burns M.D. 10/10/2017 7:19 AM Dictated Date/Time: 10/10/2017 7:15 AM
[2017-10-10 07:53] LABS: HEMATOCRIT 29.4 % (42-52); HEMOGLOBIN 8.5 g/dL (14.0-18.0); MEAN CELL VOLUME 77.6 fL (80-100); MEAN CORPUSCULAR HEMOGLOBIN 22.4 pg (25-34); MEAN CORPUSCULAR HGB CONC 28.9 g/dl (32-36); MEAN PLATELET VOLUME 8.2 fL (7.4-10.4); PLATELET COUNT 226 K/uL (130-400); RED CELL DISTRIBUTION WIDTH CV 21.8 % (11.5-14.5); RED CELL DISTRIBUTION WIDTH SD 58.6 fL (36.4-46.3); WHITE BLOOD COUNT 10.67 K/uL (4.8-10.8)
[2017-10-10 08:00] VITALS: O2SAT 94
[2017-10-10 08:13] LABS: CALCIUM 8.2 mg/dl (8.5-10.1); CREATININE 0.74 mg/dl (0.60-1.40); POTASSIUM 3.8 mmol/L (3.5-5.1)
[2017-10-10] MEDS: FERROUS SULFATE 325 MG TAB PO SCH (08:20)
[2017-10-10] MEDS: CALCIUM 600MG + VIT D 400 IU TAB PO SCH (08:20)
[2017-10-10] MEDS: THIAMINE HCL 100 MG TAB PO SCH (08:21)
[2017-10-10] MEDS: METOPROLOL SUCC 50MG EXT REL TAB PO SCH (08:21)
[2017-10-10] MEDS: PANTOprazole SOD 40 MG TAB PO SCH (08:21)
[2017-10-10] MEDS: ASCORBIC ACID 500 MG TAB PO SCH (08:23)
[2017-10-10] MEDS: FLUTICASONE/SALMETEROL 250/50 (ADVAIR) 14 PUFF/1 INHALER INH SCH (08:24)
[2017-10-10] MEDS: PAROXETINE 20 MG TAB PO SCH (08:24)
[2017-10-10] MEDS: CYCLOBENZAPRINE HCL 5 MG TAB PO SCH (08:24)
[2017-10-10] MEDS ORDERED: LORAZEPAM 1 MG TAB PO STA (09:18)
--- NOTE | 2017-10-10 09:28 | Progress Note ---
Subjective Date of Service: Oct 10, 2017. Subjective Pt evaluation today including: conversation w/ patient, physical exam, lab review, review of studies, review of inpatient medication list Saw/examined the patient in room 275 He wants IV Dilaudid before he goes home. I spoke to him, regarding him seeing Dr. Aston Iglesias at [facility] he is agreeable to seeing both Dr. Iglesias and Dr. Monroy Problem List Medical Problems: (1) Chest pain Status: Acute (2) COPD (chronic obstructive pulmonary disease) Status: Chronic (3) Dehydration Status: Acute (4) Fall Status: Acute (5) Fracture of rib of right side Status: Acute (6) Laceration of right forearm Status: Acute (7) Multiple fractures of ribs, right side, initial encounter forclosed fracture Status: Acute (8) Postoperative wound dehiscence Status: Acute (9) SOB (shortness of breath) Status: Acute (10) Vomiting Status: Acute Review of Systems Constitutional: No fever, No chills, No weakness Respiratory: + shortness of breath Cardiac: + chest pain, No edema, No palpitations Abdomen: No pain, No nausea, No vomiting, No diarrhea Musculoskeletal: + joint pain (chronic neck/back pain) Medications Current Inpatient Medications Medications (Trade) Dose Ordered Sig/Tyree Route Start Time Stop Time Status Last Admin Dose Admin Ondansetron HCl (Zofran Inj) 4 mg Q6H PRN IV 10/03/17 16:30 11/02/17 16:29 Ascorbic Acid (Vitamin C Tab) 500 mg DAILY PO 10/04/17 09:00 11/03/17 08:59 10/10/17 08:23 500 MG Metoprolol Succinate (Toprol Xl Tab) 100 mg QAM PO 10/04/17 09:00 11/03/17 08:59 10/10/17 08:21 100 MG Oxycodone/ Acetaminophen (Percocet 10-325MG Tab) 1 tab Q6 PRN PO 10/03/17 18:45 10/17/17 18:44 Future hold 10/10/17 04:57 1 TAB Calcium/Vitamin D (Caltrate Plus Tab) 1 tab BID PO 10/03/17 21:00 11/02/17 20:59 10/10/17 08:20 1 TAB Paroxetine HCl (pAXil TAB) 40 mg DAILY PO 10/04/17 09:00 11/03/17 08:59 10/10/17 08:24 40 MG Salmeterol Xinafoate/ Fluticasone (Advair Diskus 250/50 Inh) 1 puff BID INH 10/03/17 21:00 11/02/17 20:59 10/10/17 08:24 1 PUFF Ferrous Sulfate (Feosol Tab) 325 mg BIDM PO 10/04/17 08:00 11/03/17 07:59 Future hold 10/10/17 08:20 325 MG Sodium Chloride ([place] Nasal [place]) 1 sprays PRN PRN NA 10/04/17 14:30 11/03/17 14:29 Acetaminophen 100 ml @ 400 mls/hr Q8H PRN IV 10/04/17 19:30 11/03/17 19:29 10/09/17 18:43 400 MLS/HR Guaifenesin/ Dextromethorphan (Robitussin-Dm Syrup) 10 ml Q6H PRN PO 10/04/17 22:30 11/03/17 22:29 10/04/17 22:39 10 ML Menthol (Nice Glenn) 1 glenn Q1H PRN GLENN 10/04/17 22:30 11/03/17 22:29 Haloperidol Lactate (Haldol Inj) 1 mg Q2H PRN IV 10/05/17 06:45 11/04/17 06:44 Albuterol/ Ipratropium (Duoneb) 3 ml QIDR PRN INH 10/06/17 12:00 11/02/17 19:59 10/09/17 03:22 3 ML Cyclobenzaprine HCl (Flexeril Tab) 5 mg BID PO 10/06/17 21:00 11/05/17 20:59 10/10/17 08:24 5 MG Hydralazine HCl (HydrALAZINE INJ) 10 mg Q6H PRN IV. 10/06/17 19:00 11/05/17 18:59 10/09/17 14:41 10 MG Thiamine HCl (Vitamin B-1 Tab) 100 mg QAM PO 10/07/17 09:00 11/06/17 08:59 10/10/17 08:21 100 MG Prednisone (PredniSONE TAB) 30 mg DAILY PO 10/10/17 09:00 11/06/17 08:59 10/10/17 08:27 30 MG Objective Vital Signs Date Time Temp Pulse Resp B/P (MAP) Pulse Ox O2 Delivery O2 Flow Rate FiO2 10/10/17 06:59 36.3 80 18 174/89 (117) 94 Room Air 10/10/17 04:00 36.4 83 16 163/86 (111) 95 Room Air 10/10/17 04:00 Room Air 10/10/17 00:16 36.8 84 16 169/90 (116) 99 Nasal Cannula 3.0 10/10/17 00:00 Room Air 10/09/17 20:00 Room Air 10/09/17 19:58 36.3 71 22 144/82 (102) 99 Nasal Cannula 10/09/17 16:00 Room Air 10/09/17 15:12 34.7 104 22 147/63 (91) 96 Nasal Cannula 2.0 10/09/17 12:00 Room Air 10/09/17 11:48 36.5 82 16 169/98 (121) 97 Room Air Physical Exam General Appearance: no apparent distress Respiratory/Chest: no respiratory distress, no accessory muscle use Cardiovascular: regular rate, rhythm Extremities: normal inspection, no pedal edema Neurologic/Psychiatric: alert, + depressed affect Laboratory Results Last 24 Hours Test 10/10/17 07:23 White Blood Count 10.67 K/uL Red Blood Count 3.79 M/uL Hemoglobin 8.5 g/dL Hematocrit 29.4 % Mean Corpuscular Volume 77.6 fL Mean Corpuscular Hemoglobin 22.4 pg Mean Corpuscular Hemoglobin Concent 28.9 g/dl RDW Standard Deviation 58.6 fL RDW Coefficient of Variation 21.8 % Platelet Count 226 K/uL Mean Platelet Volume 8.2 fL Sodium Level 137 mmol/L Potassium Level 3.8 mmol/L Chloride Level 98 mmol/L Carbon Dioxide Level 32 mmol/L Anion Gap 7.0 mmol/L Blood Urea Nitrogen 18 mg/dl Creatinine 0.74 mg/dl Est Creatinine Clear Calc Drug Dose 115.0 ml/min Estimated GFR () 113.8 Estimated GFR (Non- 98.2 BUN/Creatinine Ratio 24.7 Random Glucose 80 mg/dl Calcium Level 8.2 mg/dl Magnesium Level 1.9 mg/dl Assessment and Plan 10/10 patient is sitting in bed comfortably states he is agreeable to being discharged but he would like Dilaudid before he goes - I let him know that this would not happen He states he needs Ativan before he goes will d/c with PO Lasix, PO Ativan, slow Prednisone taper 10/09 I saw the patient, he is doing okay I spoke with pulmonary consult - recommendation made to discharge patient home and have outpatient f/u with Dr. Aston Iglesias at [facility] He continues to display narcotic seeking behavior Hgb stable - he's received one unit of pRBCs He's has severe R ventricular dilatation as well as severely reduced R ventricle will check portable CXR in AM; may require Lasix will add two step for AM; wean O2 as tolerated This is a 61 year old M who presents with syncope with initial admitting differential that syncope could have been related to patient's chronic anemia and patient s/p 1 unit of PRBC which raised Hgb 7.4 to 8 and subsequently being evaluated by Gastroenterology service on 10/04/17 which recommends celiac disease testing and small bowel studies rather than direct visualization. During the evaluation, patient complained of persistent back pain for which he has been taking chronic high dose narcotics at home for years. Patient in the recent past with abnormal MRI studies in August 2017 acute superior endplate compression fracture and Moderate to severe disc space narrowing and endplate degenerative changes at L5-S1. Carotid Ultrasound: Atherosclerosis without hemodynamically significant stenosis seen within the carotid arteries patient's echocardiogram, which was ordered as part of the syncope workup, was reported to be grossly abnormal by cardiology service. * The right ventricle is severely dilated. * The right ventricular systolic function is severely reduced. * Flattened septum is consistent with RV pressure/volume overload. * Left ventricular systolic function is normal. * The LV Ejection Fraction = 55-60%. * There is no significant tricuspid regurgitation and therefore Doppler assessment does not allow estimation of the pulmonary artery systolic pressure , however, the 2d findings are suggestive of pulmonary hypertension. * Compared to the images of the prior study dated 06/25/17, there has been interval development of severe right sided cardiac chamber enlargement with evidence of right ventricular pressure and volume overload, right ventricular strain pattern. Cardiology service advised CTA to rule out pulmonary embolism as cause for the right heart strain CTA was performed and no pulmonary embolism found CTA IMPRESSIONs: 1. Motion compromised examination. 2. There is no evidence of central pulmonary embolus in the main or lobar pulmonary arteries. Evaluation of the peripheral branches is severely degraded by motion artifact. 3. Cardiomegaly and advanced emphysema. 4. Small pleural effusions. 5. There are foci of tree-in-bud nodularity seen in the right upper lobe and at both lung bases. This has improved in the right upper lobe from 07/26/2017 and has worsened at the lung bases. The appearance suggests a chronic infectious/ inflammatory pneumonitis consulted pulmonary service on abnormalities of right upper lobe and lung bases as seen on CTA. Patient is also receiving nebs, empiric Azithromycin for admission differential diagnosis of bronchitis vs mild COPD exacerbation; recommendations to Continue bronchodilators including Advair, Pulmicort, and duo nebs,Continue guaifenesin, Methylprednisolone 40 mg IV tid. Pulmonary service evaluation on 10/07/17 suggests possibility of bronchoscopy Other non lung related CTA findings: 1) Upper abdomen: A 7.4 cm cyst arises from the upper pole of the left kidney. A small hiatal hernia is noted. A 1.3 cm hypervascular lesion is seen in the liver image #35. This likely represents a flash filling hemangioma. A 1.7 cm cyst is seen in the right hepatic lobe. 2) Skeletal structures: The skeletal structures are osteopenic. There are numerous healed right-sided rib fractures. Degenerative change and hyperkyphosis are noted in the thoracic spine. Numerous compression deformities are identified. No lytic or blastic bony lesions are seen. Patient has been evaluated by Psychiatry and Pain Management on 10/05/17 for disorientation and back pain management. Have reinforced with patient that dilaudid is not needed for dyspnea symptoms and that his back symptoms is to be managed with Dilaudid as per pain management Anemia appears to be from iron deficiency. small bowel study unremarkable, celiac testing pending results. Cardiology service on 10/06/17 recommends that patient's Hgb to be 8 and above. Pulmonary evaluation on 10/07/17 commented about possible benefits of obtaining Hgb of 10 and starting IV Venofer. Oral iron to be supplemented by IV venofer with first 200 mg to be given on 10/07/17. Hgb on 10/08/17 is now 9. Continue oral iron supplements Cardiology service was asked on 10/06/17 to evaluate role of stress test with patient's exertional dyspnea and pounding sensations of the chest: Cardiology service reports no role for stress testing and that symptoms likely related to anemia and pulmonary health issues. HTN: BP controlled, continue metoprolol Acute kidney injury resolved with IV fluids DVT PROPHYLAXIS: SCDs due to anemia Disposition: no syncopal episodes in the hospital but patient has exertional dyspnea accompanied by pounding sensations of the heart, awaiting further pulmonary recommendations and possibly will be candidate for bronchoscopy. Hgb is improving on iron supplements
[2017-10-10] MEDS ORDERED: THM100 PO (09:35)
[2017-10-10] MEDS ORDERED: FLX5 PO (09:35)
[2017-10-10] MEDS ORDERED: CNT PO (09:35)
[2017-10-10] MEDS ORDERED: FRRS300 PO (09:35)
[2017-10-10] MEDS ORDERED: PRD10 PO (09:35)
[2017-10-10] MEDS ORDERED: ATV/1 PO (09:35)
[2017-10-10] MEDS ORDERED: FURO20TA PO (09:43)
[2017-10-10] MEDS ORDERED: MCRK20 PO (09:43)
--- NOTE | 2017-10-10 09:48 | Discharge Instructions ---
Discharge Instructions Date of Service Oct 10, 2017. Admission Reason for Admission: Symptomatic Anemia Discharge Discharge Diagnosis / Problem: Pulmonary Hypertension, COPD Discharge Goals Goal(s): Decrease discomfort, Improve function, Diagnostic testing, Therapeutic intervention Activity Recommendations Activity Limitations: resume your previous activity . Instructions / Follow-Up Instructions / Follow-Up Please follow-up with Dr. Monroy on October 11 at 10:25AM * You will be on prednisone (steroids) * take 3 tablets (30mg) for five days, then take 2 tablets (20mg) for the next five days, then take 1 tablet (10mg) for the last five days * Take Lasix 20mg for the next three days; take potassium with this for the next three days * You will be prescribed Ativan - only take this as needed, up to three times a day - do not drive while taking this * You will be prescribed Flexeril - this is a muscle relaxer Current Hospital Diet Patient's current hospital diet: AHA Diet (Heart Healthy), Low Sodium Diet (2gm Na) Discharge Diet Recommended Diet: AHA Diet (Heart Healthy), Low Sodium Diet (2gm Na) Pending Studies Studies pending at discharge: no Medical Emergencies . Who to Call and When: Medical Emergencies: If at any time you feel your situation is an emergency, please call 911 immediately. . Non-Emergent Contact Non-Emergency issues call your: Primary Care Provider . . "Provider Documentation" section prepared by Piedad Velarde. . VTE Core Measure Inpt VTE Proph given/why not?: SCD's
--- NOTE | 2017-10-10 09:51 | Discharge Summary ---
Discharge Summary Date of Service Oct 10, 2017. Discharge Summary Admission Date: Oct 03, 2017 at 17:44 Discharge Date: Oct 10, 2017 Discharge Disposition: Home Principal Diagnosis: Pulmonary HTN COPD Iron Deficiency Anemia Syncope Chronic Opioid Use Medication Reconciliation New Medications: Furosemide (Lasix) 20 Mg Tab 20 MG PO DAILY for 5 Days, #5 TABS Lorazepam (Ativan) 1 Mg Tab 1 MG PO TID for 5 Days, #15 TAB Multivitamins/Minerals (Certavite/Antioxidants) 1 Tab Tab 1 TAB PO DAILY for 30 Days, #30 TABS Potassium Chloride (Klor-Con M20) 20 Meq Tabcr 20 MEQ PO DAILY for 5 Days, #5 TABS Cyclobenzaprine HCl (Cyclobenzaprine HCl) 5 Mg Tab 5 MG PO BID for 15 Days, #30 TAB Ferrous Sulfate (Ferrous Sulfate) 325 Mg Tab 325 MG PO BIDM for 30 Days, #60 TAB Prednisone (Prednisone) 10 Mg Tab 30 MG PO UD for 15 Days, #20 TAB Thiamine HCl (Vitamin B-1) 100 Mg Tab 100 MG PO QAM for 30 Days, #30 TAB Continued Medications: Albuterol Hfa (Ventolin Hfa) 200 Puffs/07838 Mcg Aers 2 PUFFS INH QID PRN for Shortness of Breath, #1 INHALER Ascorbic Acid (Ascorbic Acid) 500 Mg Tab 500 MG PO DAILY, #30 TAB 5 Refills Take at lunch time with ferrous sulfate (iron). Calcium Carbonate-Cholecalcife (Calcium 500 +D) 1 Tab Tab 1 TAB PO BID, #60 TAB 12 Refills Ergocalciferol (Vitamin D 20744 Unit) 50,000 Unit Cap 21088 UNIT PO WK, CAP Fluticasone Furoate-Vilanterol (Breo Ellipta) 1 Inh Inh 1 INHA INH DAILY Home O2 Therapy (Oxygen) Gas 3 LITERS NA HS Metoprolol Succ (Toprol Xl) (Toprol-Xl ) 100 Mg Tabcr 100 MG PO QAM Oxycodone/Acetaminophen 10MG/325MG (Percocet 10MG/325MG) Tab 1 TAB PO Q6 PRN for Pain, TAB Pantoprazole (Protonix) 40 Mg Tab 40 MG PO QAM Paroxetine HCl (Paroxetine) 40 Mg Tab 40 MG PO DAILY Triamcinolone Acet (Triamcinolone Acetonide) 45 Appln/15 Gm Oint 1 APPLN TOP BID for 30 Days, #454 GM Zolpidem Tartrate (Ambien) 10 Mg Tab 10 MG PO HS PRN for Sleep Admission Information HPI (per Admitting provider): 61 year old male who presents to the ED with shortness of breath, weakness, and a syncopal event. Patient was recently admitted to [facility] 09/10 - 09/09 for acute blood loss anemia due to GI bleed. He underwent EGD on 09/04 which showed a non bleeding gastric ulcer and Joyce's esophagus. Patient reports that over the past one week he has noticed increased generalized weakness. Yesterday he reports he developed shortness of breath with exertion as well as chest pressure. Symptoms improved with rest. Today while walking to his friends car he became extremely short of breath. He reports the next thing he remembers is waking up coming into the ED. He reports his friend told him he went unresponsive however was still breathing. Patient reports his stools have been dark for a long time, he denies any recent changes. No diarrhea or BRBPR. He had one episode of vomiting a couple of days ago. No hematemesis or coffee ground emesis. He has chronic LLQ abdominal pain which is unchanged as well. A couple of days ago, his voice started to become hoarse. He reports minimal dry cough. No fevers or chills. In the ED, hgb is found to be 7.4. Vitals are stable. Physical Exam (per Admitting): General Appearance: WD/WN, + mild distress Head: normocephalic, atraumatic Eyes: normal inspection, EOMI, sclerae normal ENT: hearing grossly normal, + pertinent finding (mucous membranes dty) Neck: supple, no JVD, trachea midline Respiratory/Chest: no respiratory distress, + wheezing (expiratory, scattered throughout all lung lino), + pertinent finding (coarse breath sounds BL) Cardiovascular: regular rate, rhythm, normal peripheral pulses, + pertinent finding (+1-2 edema BLLE) Abdomen/GI: normal bowel sounds, soft, no organomegaly, + tenderness (LLQ, chronic per patient) Extremities/Musculoskelatal: normal inspection, no calf tenderness, normal capillary refill Neurologic/Psych: no motor/sensory deficits, alert, normal mood/affect, oriented x 3 Skin: + pertinent finding (scattered dried, scabbed over lesions noted over BLUE and upper back) Hospital Course 10/10 patient is sitting in bed comfortably states he is agreeable to being discharged but he would like Dilaudid before he goes - I let him know that this would not happen He states he needs Ativan before he goes will d/c with PO Lasix, PO Ativan, slow Prednisone taper 10/09 I saw the patient, he is doing okay I spoke with pulmonary consult - recommendation made to discharge patient home and have outpatient f/u with Dr. Aston Iglesias at [facility] He continues to display narcotic seeking behavior Hgb stable - he's received one unit of pRBCs He's has severe R ventricular dilatation as well as severely reduced R ventricle will check portable CXR in AM; may require Lasix will add two step for AM; wean O2 as tolerated This is a 61 year old M who presents with syncope with initial admitting differential that syncope could have been related to patient's chronic anemia and patient s/p 1 unit of PRBC which raised Hgb 7.4 to 8 and subsequently being evaluated by Gastroenterology service on 10/04/17 which recommends celiac disease testing and small bowel studies rather than direct visualization. During the evaluation, patient complained of persistent back pain for which he has been taking chronic high dose narcotics at home for years. Patient in the recent past with abnormal MRI studies in August 2017 acute superior endplate compression fracture and Moderate to severe disc space narrowing and endplate degenerative changes at L5-S1. Carotid Ultrasound: Atherosclerosis without hemodynamically significant stenosis seen within the carotid arteries patient's echocardiogram, which was ordered as part of the syncope workup, was reported to be grossly abnormal by cardiology service. * The right ventricle is severely dilated. * The right ventricular systolic function is severely reduced. * Flattened septum is consistent with RV pressure/volume overload. * Left ventricular systolic function is normal. * The LV Ejection Fraction = 55-60%. * There is no significant tricuspid regurgitation and therefore Doppler assessment does not allow estimation of the pulmonary artery systolic pressure , however, the 2d findings are suggestive of pulmonary hypertension. * Compared to the images of the prior study dated 06/25/17, there has been interval development of severe right sided cardiac chamber enlargement with evidence of right ventricular pressure and volume overload, right ventricular strain pattern. Cardiology service advised CTA to rule out pulmonary embolism as cause for the right heart strain CTA was performed and no pulmonary embolism found CTA IMPRESSIONs: 1. Motion compromised examination. 2. There is no evidence of central pulmonary embolus in the main or lobar pulmonary arteries. Evaluation of the peripheral branches is severely degraded by motion artifact. 3. Cardiomegaly and advanced emphysema. 4. Small pleural effusions. 5. There are foci of tree-in-bud nodularity seen in the right upper lobe and at both lung bases. This has improved in the right upper lobe from 07/26/2017 and has worsened at the lung bases. The appearance suggests a chronic infectious/ inflammatory pneumonitis consulted pulmonary service on abnormalities of right upper lobe and lung bases as seen on CTA. Patient is also receiving nebs, empiric Azithromycin for admission differential diagnosis of bronchitis vs mild COPD exacerbation; recommendations to Continue bronchodilators including Advair, Pulmicort, and duo nebs,Continue guaifenesin, Methylprednisolone 40 mg IV tid. Pulmonary service evaluation on 10/07/17 suggests possibility of bronchoscopy Other non lung related CTA findings: 1) Upper abdomen: A 7.4 cm cyst arises from the upper pole of the left kidney. A small hiatal hernia is noted. A 1.3 cm hypervascular lesion is seen in the liver image #35. This likely represents a flash filling hemangioma. A 1.7 cm cyst is seen in the right hepatic lobe. 2) Skeletal structures: The skeletal structures are osteopenic. There are numerous healed right-sided rib fractures. Degenerative change and hyperkyphosis are noted in the thoracic spine. Numerous compression deformities are identified. No lytic or blastic bony lesions are seen. Patient has been evaluated by Psychiatry and Pain Management on 10/05/17 for disorientation and back pain management. Have reinforced with patient that dilaudid is not needed for dyspnea symptoms and that his back symptoms is to be managed with Dilaudid as per pain management Anemia appears to be from iron deficiency. small bowel study unremarkable, celiac testing pending results. Cardiology service on 10/06/17 recommends that patient's Hgb to be 8 and above. Pulmonary evaluation on 10/07/17 commented about possible benefits of obtaining Hgb of 10 and starting IV Venofer. Oral iron to be supplemented by IV venofer with first 200 mg to be given on 10/07/17. Hgb on 10/08/17 is now 9. Continue oral iron supplements Cardiology service was asked on 10/06/17 to evaluate role of stress test with patient's exertional dyspnea and pounding sensations of the chest: Cardiology service reports no role for stress testing and that symptoms likely related to anemia and pulmonary health issues. HTN: BP controlled, continue metoprolol Acute kidney injury resolved with IV fluids DVT PROPHYLAXIS: SCDs due to anemia Disposition: no syncopal episodes in the hospital but patient has exertional dyspnea accompanied by pounding sensations of the heart, awaiting further pulmonary recommendations and possibly will be candidate for bronchoscopy. Hgb is improving on iron supplements Total time spent on discharge = 45 minutes This includes examination of the patient, discharge planning, medication reconciliation, and communication with other providers. Discharge Instructions Please follow-up with Dr. Monroy on October 11 at 10:25AM * You will be on prednisone (steroids) * take 3 tablets (30mg) for five days, then take 2 tablets (20mg) for the next five days, then take 1 tablet (10mg) for the last five days * Take Lasix 20mg for the next three days; take potassium with this for the next three days * You will be prescribed Ativan - only take this as needed, up to three times a day - do not drive while taking this * You will be prescribed Flexeril - this is a muscle relaxer
[2017-10-10 10:41] VITALS: BP 174/89; PULSE 80; TEMP 36.3; O2SAT 94
--- NOTE | 2017-10-10 12:47 | Pulmonology Progress Note ---
Pulmonary Progress Note Date of Service Oct 10, 2017. Attending Dr. Adair Subjective Patient notes he is doing well on 2 liters nasal cannula at this time does become mildly dyspneic with some exertion. Objective Patient was sitting up in bed able to complete full sentences during our evaluation. He did have to get up and go to the restroom and with ambulation I did note some tachypnea and accessory muscle use. VS: Resp: Mild crackles at the bases bilaterally Card: S1-S2 regular rate rhythm distant heart sounds Abd: Positive bowel sounds soft nontender mildly distended Ext: No clubbing cyanosis or edema appreciated General: Awake alert orientated x3 Studies Procalcitonin: <0.05 Influ A&B: negative EKG (10/08/17): NSR Nocturnal Oximetry report (10/06/17): max single event where SaO2 < 88% was 192sec Cardiac Echo (10/04/17) LV: EF= 55-60%, mild LVH RV: severely dilated with severely reduced function RA: severely dilated, estimated pressure of 15mmHg PV: WNL Grade one diastolic dysfunction Sever RV changes since cardiac echo on 06/25/17 Cardiac Cath 04/03/14 Clear Coronaries LVED pressure: 5 CTA Chest (10/04/17) compared to 07/26/17 No evidence for PE Advance emphysema Small bilateral pleural effusions Improvement in the RUL consolidation Bronchiectatic/infiltrative process in the bilateral lower lobes Tree-n-bud changes in the Bilateral Lower lobes Pulmonary function studies 06/18/2015 Pre post %Blackwell FEV1/FVC 48 54 FEV1 1.73/43% 2.17 +25 FVC 3.59/67% 3.98 +11 SVC 3.42/64% TLC 9.36/121% RV/TLC 63 DLCO 49% Toxicology: Urine opiates +: 05/29/17 Oxycodone + 05/29/17 Hydromorphone + 05/29/17 Marijuana + 05/29/17 ETOH + 01/31/17 (163) Active pulmonary Medications: #1 Prednisone 30mg QD #2 Protonix 40mg #3 Albuterol/Atrovent Neb QID prn #4 Robitusin DM #5 Advair 250/50 Assessment & Plan 61-year-old male admitted with notable hypoxemia and syncopal episode: 1. Pulmonary Hypertension: The patient most likely has group 3 pulmonary hypertension based off of recent echocardiogram performed 10/04/2017. High probability the patient has cor pulmonale which would be consistent with his notable decline in the last 6-12 months. Still suggest we move forward with right heart catheterization the patient is stable enough per Cardiology. 2. COPD: Per the patient's previous spirometry performed 06/18/2015 based off ATS criteria he has severe obstructive ventilatory disease. At this time the patient's AMIE Index is 4. Patient is stable enough to be discharged at this time. Will not initiate a LAMA inhaler as the patient had previous difficulty with severe dry mouth after introducing Spiriva into his regimen. 3. Hypoxia: Patient will need home oxygen after discharge and follow-up in the next 2-3 weeks. 4. Transplant/Referral: I have spoken to Dr. Aston Iglesias at the [facility]/ transplant service. I have also spoken to the patient and after his discharge [facility] has been gracious enough to evaluate this patient. The Contact Phone number for [facility] is . After this patient is d/c we need to make sure his records are sent to the [facility] system and visit is scheduled. Data Medications: Current Inpatient Medications Medications (Trade) Dose Ordered Sig/Tyree Route Start Time Stop Time Status Last Admin Dose Admin Ondansetron HCl (Zofran Inj) 4 mg Q6H PRN IV 10/03/17 16:30 11/02/17 16:29 Ascorbic Acid (Vitamin C Tab) 500 mg DAILY PO 10/04/17 09:00 11/03/17 08:59 10/10/17 08:23 500 MG Metoprolol Succinate (Toprol Xl Tab) 100 mg QAM PO 10/04/17 09:00 11/03/17 08:59 10/10/17 08:21 100 MG Oxycodone/ Acetaminophen (Percocet 10-325MG Tab) 1 tab Q6 PRN PO 10/03/17 18:45 10/17/17 18:44 Future hold 10/10/17 11:09 1 TAB Calcium/Vitamin D (Caltrate Plus Tab) 1 tab BID PO 10/03/17 21:00 11/02/17 20:59 10/10/17 08:20 1 TAB Paroxetine HCl (pAXil TAB) 40 mg DAILY PO 10/04/17 09:00 11/03/17 08:59 10/10/17 08:24 40 MG Salmeterol Xinafoate/ Fluticasone (Advair Diskus 250/50 Inh) 1 puff BID INH 10/03/17 21:00 11/02/17 20:59 10/10/17 08:24 1 PUFF Ferrous Sulfate (Feosol Tab) 325 mg BIDM PO 10/04/17 08:00 11/03/17 07:59 Future hold 10/10/17 08:20 325 MG Sodium Chloride ([place] Nasal Berry) 1 sprays PRN PRN NA 10/04/17 14:30 11/03/17 14:29 Acetaminophen 100 ml @ 400 mls/hr Q8H PRN IV 10/04/17 19:30 11/03/17 19:29 10/09/17 18:43 400 MLS/HR Guaifenesin/ Dextromethorphan (Robitussin-Dm Syrup) 10 ml Q6H PRN PO 10/04/17 22:30 11/03/17 22:29 10/04/17 22:39 10 ML Menthol (Nice Glenn) 1 glenn Q1H PRN GLENN 10/04/17 22:30 11/03/17 22:29 Haloperidol Lactate (Haldol Inj) 1 mg Q2H PRN IV 10/05/17 06:45 11/04/17 06:44 Albuterol/ Ipratropium (Duoneb) 3 ml QIDR PRN INH 10/06/17 12:00 11/02/17 19:59 10/09/17 03:22 3 ML Cyclobenzaprine HCl (Flexeril Tab) 5 mg BID PO 10/06/17 21:00 11/05/17 20:59 10/10/17 08:24 5 MG Hydralazine HCl (HydrALAZINE INJ) 10 mg Q6H PRN IV. 10/06/17 19:00 11/05/17 18:59 10/09/17 14:41 10 MG Thiamine HCl (Vitamin B-1 Tab) 100 mg QAM PO 10/07/17 09:00 11/06/17 08:59 10/10/17 08:21 100 MG Prednisone (PredniSONE TAB) 30 mg DAILY PO 10/10/17 09:00 11/06/17 08:59 10/10/17 08:27 30 MG Vital Signs: Date Time Temp Pulse Resp B/P (MAP) Pulse Ox O2 Delivery O2 Flow Rate FiO2 10/10/17 10:41 36.3 80 18 94 Nasal Cannula 10/10/17 08:00 94 Room Air 10/10/17 06:59 36.3 80 18 174/89 (117) 94 Room Air 10/10/17 04:00 36.4 83 16 163/86 (111) 95 Room Air 10/10/17 04:00 Room Air 10/10/17 00:16 36.8 84 16 169/90 (116) 99 Nasal Cannula 3.0 10/10/17 00:00 Room Air 10/09/17 20:00 Room Air 10/09/17 19:58 36.3 71 22 144/82 (102) 99 Nasal Cannula 10/09/17 16:00 Room Air 10/09/17 15:12 34.7 104 22 147/63 (91) 96 Nasal Cannula 2.0 Laboratory Results: Last 24 Hours Test 10/10/17 07:23 White Blood Count 10.67 K/uL Red Blood Count 3.79 M/uL Hemoglobin 8.5 g/dL Hematocrit 29.4 % Mean Corpuscular Volume 77.6 fL Mean Corpuscular Hemoglobin 22.4 pg Mean Corpuscular Hemoglobin Concent 28.9 g/dl RDW Standard Deviation 58.6 fL RDW Coefficient of Variation 21.8 % Platelet Count 226 K/uL Mean Platelet Volume 8.2 fL Sodium Level 137 mmol/L Potassium Level 3.8 mmol/L Chloride Level 98 mmol/L Carbon Dioxide Level 32 mmol/L Anion Gap 7.0 mmol/L Blood Urea Nitrogen 18 mg/dl Creatinine 0.74 mg/dl Est Creatinine Clear Calc Drug Dose 115.0 ml/min Estimated GFR () 113.8 Estimated GFR (Non- 98.2 BUN/Creatinine Ratio 24.7 Random Glucose 80 mg/dl Calcium Level 8.2 mg/dl Magnesium Level 1.9 mg/dl
== END 2017-10-10 13:05 | disposition home or self-care (01) | DRG 315 ==
LOC: C.EDB 13:41 → ENRESERV 17:02 → C.MED 17:44
PROVIDERS: ADMIT Internal Medicine; ATTEND Family Medicine
DX: I27.20 Pulmonary hypertension, unspecified (principal); J44.1 Chronic obstructive pulmonary disease with (acute) exacerbation; N17.9 Acute kidney failure, unspecified; F10.239 Alcohol dependence with withdrawal, unspecified; F11.10 Opioid abuse, uncomplicated; I10 Essential (primary) hypertension; I25.2 Old myocardial infarction; K22.70 Barrett's esophagus without dysplasia; E55.9 Vitamin D deficiency, unspecified; I25.10 Atherosclerotic heart disease of native coronary artery without angina pectoris; F17.200 Nicotine dependence, unspecified, uncomplicated; I50.9 Heart failure, unspecified; K25.9 Gastric ulcer, unspecified as acute or chronic, without hemorrhage or perforation; D50.9 Iron deficiency anemia, unspecified; Z82.49 Family history of ischemic heart disease and other diseases of the circulatory system; M54.9 Dorsalgia, unspecified; Z88.5 Allergy status to narcotic agent; Z85.828 Personal history of other malignant neoplasm of skin; Z86.010 Personal history of colon polyps; Z76.5 Malingerer [conscious simulation]; M48.50XS Collapsed vertebra, not elsewhere classified, site unspecified, sequela of fracture

== ENCOUNTER 2017-12-07 19:56 | Inpatient (IN) | payer OTHER ==
[2017-12-07] VITALS (8 sets, daily range): BP systolic 120–144; BP diastolic 74–85; PULSE 87–102; O2SAT 86–100
[~2017-12-07] VITALS: Ht 172.7 cm; Wt 91.1 kg
[~2017-12-07 19:56] MED LIST changes: +CNT PO; +ERGO500037 PO; +ETOMIDATE 2 MG/ML 20 ML VIAL IV ONE; -FERR325T5 PO; +FLX5 PO; +FRRS300 PO; +FURO20TA PO; -HYDR-3124 PO; +MCRK20 PO; -OXYC-57 PO; +OXYC10TA80 PO; +PRD10 PO; +ROCURONIUM BROMIDE 10 MG/ML 10 ML VIAL IV ONE; +THM100 PO; +TRMO115 TOP
[2017-12-07] MEDS ORDERED: MAGNESIUM SULFATE 1GM / D5W 1 GM BAG IV STA (20:33)
[2017-12-07] MEDS ORDERED: LORAZEPAM 2 MG/ML 1 ML VIAL IV STA (20:33)
[2017-12-07] MEDS ORDERED: ALBUT/IPRATROP 3MG/0.5MG NEB 3 ML VIAL INH STA (20:33)
[2017-12-07] MEDS ORDERED: SODIUM CHLORIDE 0.9% 500ML 500 ML IV STA (20:33)
[2017-12-07 20:36] LABS: BASO % 0.2 %; BASO ABS # 0.02 K/uL (0-0.2); HEMOGLOBIN 11.4 g/dL (14.0-18.0); IG# 0.03 K/uL (0.00-0.02); LYMPH % 5.3 %; LYMPH ABS # 0.48 K/uL (1.2-3.4); MEAN CELL VOLUME 83.2 fL (80-100); MEAN CORPUSCULAR HEMOGLOBIN 24.9 pg (25-34); MEAN PLATELET VOLUME 8.5 fL (7.4-10.4); MONO % 5.4 %; MONO ABS # 0.49 K/uL (0.11-0.59); NEUT % 88.8 %; NEUT ABS # 8.03 K/uL (1.4-6.5); PLATELET COUNT 224 K/uL (130-400); RED CELL DISTRIBUTION WIDTH CV 22.3 % (11.5-14.5); RED CELL DISTRIBUTION WIDTH SD 67.4 fL (36.4-46.3); WHITE BLOOD COUNT 9.05 K/uL (4.8-10.8)
--- NOTE | 2017-12-07 20:38 | DIAGNOSTIC IMAGING REPORT ---
CHEST ONE VIEW PORTABLE CLINICAL HISTORY: 62 years-old Male presenting with SOB. TECHNIQUE: Portable upright AP view of the chest was obtained. COMPARISON: 10/10/2017. FINDINGS: Atherosclerosis of the aortic arch. Cardiac silhouette normal in size. Heterogeneous and prominent lung markings. No focal opacity. No large effusion or pneumothorax. Suggestion of old right rib fractures. Upper abdomen normal. IMPRESSION: 1. Heterogeneity of lung parenchyma could imply underlying emphysema. No superimposed focal infiltrate to suggest pneumonia. Electronically signed by: Zach Townsend M.D. 12/07/2017 8:37 PM Dictated Date/Time: 12/07/2017 8:36 PM
--- NOTE | 2017-12-07 20:41 | EMERGENCY ROOM VISIT NOTE ---
History Report prepared by Ileanaibe: Cooper Benitez Under the Supervision of: Dr. Srikanth Muller M.D. First contact with patient: 20:18 Chief Complaint: SHORTNESS OF BREATH Stated Complaint: SOB Nursing Triage Summary: pt arrives ALS from home. per EMS pt had RA sat of 74% and was tripodding. pt given Duoneb and Albuterol neb by EMS, 125mg IV Solumedrol, 4mg IV Zofran and 4mg IV Morphine. pt placed on CPAP by EMS. pt arrives with Sat 98% and respirations 29 upon arrival. pt c/o CP, SOB and cough that started 2 days ago. Respiratory paged to bedside for Bipap. settings 10/3 and 40% History of Present Illness The patient is a 62 year old white male with a past medical history of HTN and COPD who presents to the ED with a cc of intermittent chest pain beginning two days ago. He rates his pain as an 8/10 in severity. Per EMS, the patient was 74 % on RA. He was given a Duoneb, Albuterol, Solu-Medrol, Zofran, Morphine, and was place on CPAP. Positive SOB, cough, abdominal pain, increased urinary frequency. Negative falls, injury, radiation of pain, weight gain, lower extremity edema. The patient states that he ceased smoking a month and a half ago. He reports he has been using 3 L of oxygen. Source of History: patient Onset: two days ago Position: chest Timing: intermittent Review of Systems See HPI for pertinent positives and negatives. A total of ten systems were reviewed and were otherwise negative. Past Medical & Surgical Medical Problems: (1) Joyce's esophagus (2) C. difficile colitis (3) Chronic neck pain (4) Compression fracture (5) COPD (chronic obstructive pulmonary disease) (6) Depression (7) History of adenomatous polyp of colon (8) History of Joyce's esophagus (9) History of basal cell carcinoma (10) History of Meckel's diverticulum (11) History of suicide attempt (12) HTN (hypertension) (13) Hx of skin graft (14) Renal cyst (15) Vitamin D deficiency Surgical Problems: (1) H/O hernia repair (2) History of appendectomy (3) History of colon resection (4) History of esophagogastroduodenoscopy (EGD) (5) Hx of cardiac cath (6) 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 Family History FH: CAD (coronary artery disease) FATHER (NM, bypass) FHx: heart disease SISTER (atrial septal defect) Hypertension FATHER MOTHER Stroke FATHER TIAs FATHER Social History Smoking Status: Current Every Day Smoker Alcohol Use: occasionally Marital Status: single Housing Status: lives alone Occupation Status: employed Current/Historical Medications Scheduled Amlodipine (Norvasc), 10 MG PO DAILY Aspirin (Aspirin Ec), 81 MG PO DAILY Diltiazem Hcl (Cardizem), 60 MG PO TID Fluticasone Furoate-Vilanterol (Breo Ellipta), 1 PUFF INH DAILY Furosemide (Lasix), 20 MG PO DAILY Home O2 Therapy (Oxygen), 3 LITERS NA HS Ipratropium Corinna (Atrovent 0.02% Soln), 2.5 ML NEB QID Levalbuterol Hcl (Levalbuterol), 1.25 MG NEB Q4H Magnesium Oxide (Mag-Ox), 400 MG PO DAILY Metoprolol Succ (Toprol Xl) (Toprol-Xl ), 100 MG PO QAM Pantoprazole (Protonix), 40 MG PO QAM Paroxetine Hcl (Paxil), 20 MG PO DAILY Potassium Chloride (Potassium Chloride ER), 2 MEQ PO DAILY Scheduled PRN Albuterol Sulfate (Proventil Hfa), 2 PUFFS INH Q6H PRN for Shortness of Breath Oxycodone/Acetaminophen 10MG/325MG (Percocet 10MG/325MG), 1 TAB PO Q6H PRN for Pain Zolpidem Tartrate (Ambien), 10 MG PO HS PRN for Sleep Allergies Coded Allergies: Shellfish (Verified Allergy, Severe, SOB & SWOLLEN GLANDS FROM SHELLFISH, 10/03/17) Onion (Verified Allergy, Unknown, RASH AND GI UPSET, 10/03/17) Captopril (Verified Adverse Reaction, Intermediate, "felt bad", 10/03/17) Codeine (Verified Adverse Reaction, Unknown, nausea; nightmares, 10/03/17) Physical Exam Vital Signs Date Time Temp Pulse Resp B/P (MAP) Pulse Ox O2 Delivery O2 Flow Rate FiO2 12/07/17 23:27 117/76 12/07/17 23:25 100 16 130/75 99 12/07/17 23:23 88 25 142/80 99 12/07/17 23:15 88 37 128/79 98 12/07/17 22:30 95 28 122/77 93 BiPAP 12/07/17 22:00 97 26 129/77 94 BiPAP 40 12/07/17 21:51 97 12/07/17 21:30 102 20 152/88 94 BiPAP 40 12/07/17 21:00 99 20 143/86 92 BiPAP 40 12/07/17 20:45 102 30 94 BiPAP/CPAP 40 12/07/17 20:23 102 91 40 12/07/17 20:13 BiPAP 12/07/17 20:11 98 BiPAP 12/07/17 20:01 98 CPAP 12/07/17 20:01 36.6 107 29 176/102 98 CPAP Physical Exam GENERAL: Ill appearing, uncomfortable, moderate respiratory distress. HENT: Normocephalic, atraumatic. EYES: Normal conjunctiva. Sclera non-icteric. NECK: Supple. No nuchal rigidity. FROM. RESPIRATORY: CTAB, no rhonchi, crackles, diffuse expiratory wheezing throughout. Tachypnea noted. CARDIAC: RRR, no MRG ABDOMEN: Soft, NTND, BS+ MSK: No chest wall TTP, no LE edema NEURO: GCS 15, CN 2-12 intact, moves all 4s on command SKIN: No rash or jaundice noted. Palor noted. Medical Decision & Procedures ER Provider Diagnostic Interpretation: X-ray: Per my interpretation, radiologist review. CHEST ONE VIEW PORTABLE CLINICAL HISTORY: 62 years-old Male presenting with SOB. TECHNIQUE: Portable upright AP view of the chest was obtained. COMPARISON: 10/10/2017. FINDINGS: Atherosclerosis of the aortic arch. Cardiac silhouette normal in size. Heterogeneous and prominent lung markings. No focal opacity. No large effusion or pneumothorax. Suggestion of old right rib fractures. Upper abdomen normal. IMPRESSION: 1. Heterogeneity of lung parenchyma could imply underlying emphysema. No superimposed focal infiltrate to suggest pneumonia. Electronically signed by: Zach Townsend M.D. 12/07/2017 8:37 PM Dictated Date/Time: 12/07/2017 8:36 PM Laboratory Results 12/07/17 20:10 Red Blood Count 4.57, Mean Corpuscular Volume 83.2, Mean Corpuscular Hemoglobin 24.9, Mean Corpuscular Hemoglobin Concent 30.0, Mean Platelet Volume 8.5, Neutrophils (%) (Auto) 88.8, Lymphocytes (%) (Auto) 5.3, Monocytes (%) (Auto) 5.4, Eosinophils (%) (Auto) 0.0, Basophils (%) (Auto) 0.2, Neutrophils # (Auto) 8.03, Lymphocytes # (Auto) 0.48, Monocytes # (Auto) 0.49, Eosinophils # (Auto) 0.00, Basophils # (Auto) 0.02 12/07/17 20:10 Test 12/07/17 20:10 12/07/17 20:19 12/07/17 20:21 White Blood Count 9.05 K/uL (4.8-10.8) Red Blood Count 4.57 M/uL (4.7-6.1) Hemoglobin 11.4 g/dL (14.0-18.0) Hematocrit 38.0 % (42-52) Mean Corpuscular Volume 83.2 fL (80-100) Mean Corpuscular Hemoglobin 24.9 pg (25-34) Mean Corpuscular Hemoglobin Concent 30.0 g/dl (32-36) Platelet Count 224 K/uL (130-400) Mean Platelet Volume 8.5 fL (7.4-10.4) Neutrophils (%) (Auto) 88.8 % Lymphocytes (%) (Auto) 5.3 % Monocytes (%) (Auto) 5.4 % Eosinophils (%) (Auto) 0.0 % Basophils (%) (Auto) 0.2 % Neutrophils # (Auto) 8.03 K/uL (1.4-6.5) Lymphocytes # (Auto) 0.48 K/uL (1.2-3.4) Monocytes # (Auto) 0.49 K/uL (0.11-0.59) Eosinophils # (Auto) 0.00 K/uL (0-0.5) Basophils # (Auto) 0.02 K/uL (0-0.2) RDW Standard Deviation 67.4 fL (36.4-46.3) RDW Coefficient of Variation 22.3 % (11.5-14.5) Immature Granulocyte % (Auto) 0.3 % Immature Granulocyte # (Auto) 0.03 K/uL (0.00-0.02) Hypochromasia PRESENT Anisocytosis PRESENT Prothrombin Time 10.8 SECONDS (9.0-12.0) Prothromb Time International Ratio 1.0 (0.9-1.1) Activated Partial Thromboplast Time 30.6 SECONDS (21.0-31.0) Partial Thromboplastin Ratio 1.2 Anion Gap 4.0 mmol/L (3-11) Est Creatinine Clear Calc Drug Dose 97.5 ml/min Estimated GFR () 110.0 Estimated GFR (Non- 94.9 BUN/Creatinine Ratio 17.6 (10-20) Calcium Level 8.8 mg/dl (8.5-10.1) Phosphorus Level 3.7 mg/dl (2.5-4.9) Magnesium Level 2.1 mg/dl (1.8-2.4) Total Bilirubin 0.4 mg/dl (0.2-1) Aspartate Amino Transf (AST/SGOT) 18 U/L (15-37) Alanine Aminotransferase (ALT/SGPT) 14 U/L (12-78) Alkaline Phosphatase 90 U/L (45-117) Pro-B-Type Natriuretic Peptide 5459 pg/ml (0-900) Total Protein 7.2 gm/dl (6.4-8.2) Albumin 3.0 gm/dl (3.4-5.0) Globulin 4.2 gm/dl (2.5-4.0) Albumin/Globulin Ratio 0.7 (0.9-2) Bedside Troponin I < 0.030 ng/ml (0-0.045) Bedside Lactic Acid Venous 0.99 mmol/L (0.90-1.70) Laboratory results reviewed by me Medications Administered Medications (Trade) Dose Ordered Sig/Tyree Route Start Time Stop Time Status Last Admin Dose Admin Sodium Chloride 500 ml @ 500 mls/hr Q1H STAT IV 12/07/17 20:33 12/07/17 21:32 DC 12/07/17 20:47 500 MLS/HR Albuterol/ Ipratropium (Duoneb) 12 ml ONE STAT INH 12/07/17 20:33 12/07/17 20:36 DC 12/07/17 20:44 12 ML Magnesium Sulfate (Magnesium Sulfate) 2 gm NOW STAT IV 12/07/17 20:33 12/07/17 20:36 DC 12/07/17 20:47 2 GM Lorazepam (Ativan Inj) 0.5 mg NOW STAT IV 12/07/17 20:33 12/07/17 20:36 DC 12/07/17 20:48 0.5 MG Procedure Endotracheal Intubation Indication respiratory failure. The patient was on 100% oxygen via NRB prior to the procedure. Suction, airway equipment, RSI drugs, respiratory equipment, and appropriate personnel were prepared prior to the initiation of the procedure. A time out was taken. Induction was performed with 30 Etomidate and 90 of Rocuronium. After observing the clinical benefit of the medications, the airway was easily visualized utilizing a Mac 5. A 7.5 size ETT tube was placed atraumatically to 24 cm using standard technique. The cuff inflated without signs of malfunction. Initially 24 cm at teeth, decreased BS on L, retracted to 23cm, BS b/l present. There were bilateral breath sounds, positive colormetric change, no gastric sounds, a good capnography waveform, and post procedure pulse oximetry was 97%. Post intubation sedation and paralysis was administered using Fentanyl/versed PRN. There were no complications. ECG Per My Interpretation Indication: SOB/dyspnea Rate (beats per minute): 104 Rhythm: sinus tachycardia Findings: other (Normal intervals and normal axis. No other STS changes or TWI) ED Course 2028: The patient was evaluated in room C04. A complete history and physical exam was performed. 2151: I discussed the patients case with Dr. Dickey, [facility] Hospitalist. He understands the patients condition and agrees to accept the patient. The patient will be further evaluated. 2158: I reevaluated the patient and updated him on his results. I discussed the treatment plan, which he agrees to. The patient will be further evaluated. 2251: Does not respond well to painful stimuli. His gas has not improved. Milagro Loya, [facility] ICU PA-C at bedside. 2324: I performed an intubation. See procedure notes for further detail. 2335: I reevaluated the patient and reposition the patient's ET tube. 0024: I reevaluated the patient. I suctioned and bagged the patient without any complications. Medical Decision The patient is a 62 year old white male with a past medical history of HTN and COPD who presents to the ED with a cc of intermittent chest pain beginning two days ago. Nursing notes reviewed. Ancillary studies and prior records reviewed. The patient's presentation and history were concerning for etiologies such as infections, reactive airway disease, pneumonia, pneumothorax, COPD, CHF, cardiac ischemia, pulmonary embolism, musculoskeletal, gastrointestinal, cardiac ischemia, aortic dissection, pulmonary embolism, pneumonia, pneumothorax , musculoskeletal, infections, pericarditis, myocarditis, esophageal rupture, as well as others were entertained. Patient was seen and evaluated at the bedside. Patient does have a known history of COPD and pulmonary hypertension. Patient was admitted and discharged for respiratory failure back in September. Patient presents with symptoms shortness of breath with some associated chest pains. Patient was on CPAP and placed on BiPAP. Patient did have inspiratory next Tory wheezing. Patient did have blood work obtained, EKG, troponin, chest x-ray, and was given 2 g of mag, IV fluids, and an hour-long DuoNeb. Gas was also ordered. Patient chest x-ray shows emphysema no evidence concerning for consolidation. Patient white blood cell count within normal limits. Patient's chronic but stable anemia. Patient is fairly normal kidney function. Patient's EKG does not show ischemic change. Troponin negative. BNP is elevated at 5000. Patient 's VBG's likely an ABG given the elevated PaO2 patient did have a PCO2 of 80 with an associated pH of 7.2. A repeat gas was ordered. I did have the hospitalist paged. I did discuss the patient with the hospitalist stated that the patient would need reevaluation by both myself and the physician in order to determine the appropriate place of care. Upon reassessment the patient is not able to give much history and is not very arousable. Repeat gas shows a fairly unchanged PCO2 and pH. I did have a discussion with the patient's family member to discuss goals of care she stated that she was not the power of securities attorney that she was not sure. The decision was made to intubate the patient. Patient was transferred to an alternate room and respiratory was paged. I did discuss the patient's case with the on-call physician curatorial assistant in the ICU. Patient was intubated without complication. The tube seem to be deep initially and was retracted and then replaced at a depth of 24 cm. Patient was oxygenating well. I did receive a call concerned that the patient was hypoxic into the 80s. I did suction through the ET tube and the patient was bagged without complication the patient resumed his normal saturations in the 90s. Patient was admitted and transferred to the ICU. Medication Reconcilliation Current Medication List: was personally reviewed by me Blood Pressure Screening Patient's blood pressure: Elevated blood pressure Referred to Hospitalist Consults Time Called: 2151 Consulting Physician: Elly Healy Returned Call: [phone] I discussed the patients case with Elly Healy. He understands the patients condition and agrees to accept the patient. The patient will be further evaluated. Impression Primary Impression: Hypoxia Additional Impressions: Hypercapnic respiratory failure COPD exacerbation Anemia Critical Care I have personally spent greater than 75 minutes of critical care time in the direct management of this patient. This includes bedside care, interpretation of diagnostic studies, and testing, discussion with consultants, patient, and family members, and other required patient management activities. This 75 minutes is in excess of all separately billable procedures. Scribe Attestation The scribe's documentation has been prepared under my direction and personally reviewed by me in its entirety. I confirm that the note above accurately reflects all work, treatment, procedures, and medical decision making performed by me. Departure Information Dispostion Being Evaluated By Hospitalist Referrals Zach Monroy M.D. (PCP) Patient Instructions My [facility] Problem Qualifiers Additional Impressions: Hypercapnic respiratory failure Chronicity: acute on chronic Qualified Codes: J96.22 - Acute and chronic respiratory failure with hypercapnia Anemia Anemia type: unspecified type Qualified Codes: D64.9 - Anemia, unspecified
[2017-12-07 20:53] LABS: PTT PATIENT 30.6 SECONDS (21.0-31.0)
[2017-12-07 20:56] LABS: CALCIUM 8.8 mg/dl (8.5-10.1); CREATININE 0.79 mg/dl (0.60-1.40); POTASSIUM 4.8 mmol/L (3.5-5.1)
[2017-12-07 20:59] LABS: TOTAL PROTEIN 7.2 gm/dl (6.4-8.2)
[2017-12-07 21:19] LABS: PHOSPHORUS 3.7 mg/dl (2.5-4.9)
[2017-12-07] MEDS ORDERED: DILT40TA PO (21:31)
[2017-12-07] MEDS ORDERED: ALBUAER INH (21:31)
[2017-12-07] MEDS ORDERED: ATRINSX NEB (21:31)
[2017-12-07] MEDS ORDERED: FURO-85 PO (21:31)
[2017-12-07] MEDS ORDERED: MCRK/20 PO (21:31)
[2017-12-07] MEDS ORDERED: MAGN400T6 PO (21:31)
[2017-12-07] MEDS ORDERED: ASPI81TA28 PO (21:35)
[2017-12-07] MEDS ORDERED: PARO20TA4 PO (21:38)
[2017-12-07] MEDS ORDERED: AMLO-114 PO (21:38)
[2017-12-07] MEDS ORDERED: LEVA1.255 NEB (21:39)
[2017-12-07] MEDS ORDERED: RAPID SEQUENCE INDUCTION BAG ONE (23:03)
[2017-12-07] MEDS ORDERED: ICU PROTOCOL FOR HYPERGLYCEMIA PRN (23:30)
[2017-12-07] MEDS ORDERED: HEPARIN SOD 5000 UNIT/0.5 ML CARP SQ SCH (23:30)
[2017-12-07] MEDS ORDERED: ALBUT/IPRATROP 3MG/0.5MG NEB 3 ML VIAL INH PRN (23:30)
[2017-12-07] MEDS ORDERED: ACETAMINOPHEN 325 MG TAB PO PRN (23:30)
--- NOTE | 2017-12-07 23:30 | History and Physical ---
History & Physical Date & Time of Service: Dec 07, 2017 at 23:30 Chief Complaint: SOB Primary Care Physician: Zach Monroy M.D. History of Present Illness Source: family, hospital records, other (ER physician) Patient is a 62-year-old male with past medical history of advanced COPD, pulmonary hypertension, chronic bronchiectasis, diastolic heart failure, HTN, BCC, Tobacco use disorder, anxiety, depression, Joyce's esophagus and other problems presents with history of worsening shortness of breath. While in ED patient was minimally responsive and in severe respiratory distress on BiPAP. Patient could not provide any history and most of the history is obtained from the patient's old records, family and ER physician. As per the patient's sister , patient has been sleeping a lot since at least last 2-3 days and he has called his sister today requesting for help. Patient's ABG is consistent with severe respiratory acidosis. Patient's family also informed that patient's nursing consultant recommended lung transplantation but patient decided not to proceed. Patient has been having multiple hospital admissions and his overall health is declining over the past several months as per the family. He was noted to have worked on Sunday with the help of a friend for transportation and patient's sister dis not receive any call from him since last 2 days. She believed that patient could be dehydrated and did not eat since last 2 days. Complete history could not be obtained. Patient was intubated and transferred to ICU for further management. Past Medical/Surgical History Medical Problems: (1) Joyce's esophagus (2) C. difficile colitis (3) Chest pain (4) Chronic neck pain (5) Compression fracture (6) COPD (chronic obstructive pulmonary disease) (7) Dehydration (8) Depression (9) Fall (10) Fracture of rib of right side (11) History of adenomatous polyp of colon (12) History of Joyce's esophagus (13) History of basal cell carcinoma (14) History of Meckel's diverticulum (15) History of suicide attempt (16) HTN (hypertension) (17) Hx of skin graft (18) Laceration of right forearm (19) Multiple fractures of ribs, right side, initial encounter forclosed fracture (20) Postoperative wound dehiscence (21) Renal cyst (22) SOB (shortness of breath) (23) Vitamin D deficiency (24) Vomiting Surgical Problems: (1) H/O hernia repair (2) History of appendectomy (3) History of colon resection (4) History of esophagogastroduodenoscopy (EGD) (5) Hx of cardiac cath (6) 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 Family History FH: CAD (coronary artery disease) FATHER (DE, bypass) FHx: heart disease SISTER (atrial septal defect) Hypertension FATHER MOTHER Stroke FATHER TIAs FATHER Social History Smoking Status: Current Every Day Smoker Alcohol Use: socially Marital Status: single Occupational Status: employed Immunizations History of Influenza Vaccine: Yes Influenza Vaccine Date: May 27, 2017 History of Tetanus Vaccine?: Yes Tetanus Immunization Date: Mar 26, 2014 History of Pneumococcal: Yes Pneumococcal Date: Apr 07, 2014 Allergies Coded Allergies: Shellfish (Verified Allergy, Severe, SOB & SWOLLEN GLANDS FROM SHELLFISH, 10/03/17) Onion (Verified Allergy, Unknown, RASH AND GI UPSET, 10/03/17) Captopril (Verified Adverse Reaction, Intermediate, "felt bad", 10/03/17) Codeine (Verified Adverse Reaction, Unknown, nausea; nightmares, 10/03/17) Home Medications Scheduled Amlodipine (Norvasc), 10 MG PO DAILY Aspirin (Aspirin Ec), 81 MG PO DAILY Diltiazem Hcl (Cardizem), 60 MG PO TID Fluticasone Furoate-Vilanterol (Breo Ellipta), 1 PUFF INH DAILY Furosemide (Lasix), 20 MG PO DAILY Home O2 Therapy (Oxygen), 3 LITERS NA HS Ipratropium [place] (Atrovent 0.02% Soln), 2.5 ML NEB QID Levalbuterol Hcl (Levalbuterol), 1.25 MG NEB Q4H Magnesium Oxide (Mag-Ox), 400 MG PO DAILY Metoprolol Succ (Toprol Xl) (Toprol-Xl ), 100 MG PO QAM Pantoprazole (Protonix), 40 MG PO QAM Paroxetine Hcl (Paxil), 20 MG PO DAILY Potassium Chloride (Potassium Chloride ER), 2 MEQ PO DAILY Scheduled PRN Albuterol Sulfate (Proventil Hfa), 2 PUFFS INH Q6H PRN for Shortness of Breath Oxycodone/Acetaminophen 10MG/325MG (Percocet 10MG/325MG), 1 TAB PO Q6H PRN for Pain Zolpidem Tartrate (Ambien), 10 MG PO HS PRN for Sleep Review of Systems Complete review of systems could not be obtained Physical Exam Vital Signs Date Time Temp Pulse Resp B/P (MAP) Pulse Ox O2 Delivery O2 Flow Rate FiO2 12/07/17 22:30 95 28 122/77 93 BiPAP 12/07/17 22:00 97 26 129/77 94 BiPAP 40 12/07/17 21:51 97 12/07/17 21:30 102 20 152/88 94 BiPAP 40 12/07/17 21:00 99 20 143/86 92 BiPAP 40 12/07/17 20:45 102 30 94 BiPAP/CPAP 40 12/07/17 20:23 102 91 40 12/07/17 20:13 BiPAP 12/07/17 20:11 98 BiPAP 12/07/17 20:01 98 CPAP 12/07/17 20:01 36.6 107 29 176/102 98 CPAP General Appearance: WD/WN, + pertinent finding (Sedated and intubated) Head: normocephalic, atraumatic Eyes: normal inspection, PERRL, sclerae normal ENT: normal ENT inspection Neck: supple, trachea midline Respiratory/Chest: chest non-tender, lungs clear, + respiratory distress, + decreased breath sounds Cardiovascular: regular rate, rhythm, no murmur, + pertinent finding (1+ b/l edema) Abdomen/GI: normal bowel sounds, non tender, soft Back: normal inspection Extremities/Musculoskelatal: normal inspection, + pedal edema Neurologic/Psych: + pertinent finding (Currently sedated and Intubated. Complete neuro exam could not be performed) Skin: normal color, warm/dry Diagnostics Laboratory Results Results Past 24 Hours Test 12/07/17 20:10 12/07/17 20:19 12/07/17 20:21 12/07/17 21:10 Range/Units White Blood Count 9.05 4.8-10.8 K/uL Red Blood Count 4.57 4.7-6.1 M/uL Hemoglobin 11.4 14.0-18.0 g/dL Hematocrit 38.0 42-52 % Mean Corpuscular Volume 83.2 80-100 fL Mean Corpuscular Hemoglobin 24.9 25-34 pg Mean Corpuscular Hemoglobin Concent 30.0 32-36 g/dl Platelet Count 224 130-400 K/uL Mean Platelet Volume 8.5 7.4-10.4 fL Neutrophils (%) (Auto) 88.8 % Lymphocytes (%) (Auto) 5.3 % Monocytes (%) (Auto) 5.4 % Eosinophils (%) (Auto) 0.0 % Basophils (%) (Auto) 0.2 % Neutrophils # (Auto) 8.03 1.4-6.5 K/uL Lymphocytes # (Auto) 0.48 1.2-3.4 K/uL Monocytes # (Auto) 0.49 0.11-0.59 K/uL Eosinophils # (Auto) 0.00 0-0.5 K/uL Basophils # (Auto) 0.02 0-0.2 K/uL RDW Standard Deviation 67.4 36.4-46.3 fL RDW Coefficient of Variation 22.3 11.5-14.5 % Immature Granulocyte % (Auto) 0.3 % Immature Granulocyte # (Auto) 0.03 0.00-0.02 K/uL Hypochromasia PRESENT Anisocytosis PRESENT Prothrombin Time 10.8 9.0-12.0 SECONDS Prothromb Time International Ratio 1.0 0.9-1.1 Activated Partial Thromboplast Time 30.6 21.0-31.0 SECONDS Partial Thromboplastin Ratio 1.2 Sodium Level 132 136-145 mmol/L Potassium Level 4.8 3.5-5.1 mmol/L Chloride Level 93 98-107 mmol/L Carbon Dioxide Level 35 21-32 mmol/L Anion Gap 4.0 3-11 mmol/L Blood Urea Nitrogen 14 7-18 mg/dl Creatinine 0.79 0.60-1.40 mg/dl Est Creatinine Clear Calc Drug Dose 97.5 ml/min Estimated GFR () 110.0 Estimated GFR (Non- 94.9 BUN/Creatinine Ratio 17.6 10-20 Random Glucose 130 70-99 mg/dl Calcium Level 8.8 8.5-10.1 mg/dl Phosphorus Level 3.7 2.5-4.9 mg/dl Magnesium Level 2.1 1.8-2.4 mg/dl Total Bilirubin 0.4 0.2-1 mg/dl Aspartate Amino Transf (AST/SGOT) 18 15-37 U/L Alanine Aminotransferase (ALT/SGPT) 14 12-78 U/L Alkaline Phosphatase 90 45-117 U/L Pro-B-Type Natriuretic Peptide 5459 0-900 pg/ml Total Protein 7.2 6.4-8.2 gm/dl Albumin 3.0 3.4-5.0 gm/dl Globulin 4.2 2.5-4.0 gm/dl Albumin/Globulin Ratio 0.7 0.9-2 Bedside Troponin I < 0.030 0-0.045 ng/ml Bedside Lactic Acid Venous 0.99 0.90-1.70 mmol/L Venous Blood pH 7.24 7.36-7.41 Venous Blood Partial Pressure CO2 80 38.0-50.0 mmHg Venous Blood Partial Pressure O2 86 mmHg Venous Blood HCO3 34 mmol/L Venous Blood Oxygen Saturation 94.1 % Venous Blood Base Excess 4.5 mEq/L Test 12/07/17 22:07 Range/Units Venous Blood pH 7.25 7.36-7.41 Venous Blood Partial Pressure CO2 80 38.0-50.0 mmHg Venous Blood Partial Pressure O2 73 mmHg Venous Blood HCO3 34 mmol/L Venous Blood Oxygen Saturation 91.0 % Venous Blood Base Excess 4.6 mEq/L Microbiology Results 12/07/17 Blood Culture, Received Pending 12/07/17 Blood Culture, Received Pending Diagnostic Radiology CXR: Heterogeneity of lung parenchyma could imply underlying emphysema. No superimposed focal infiltrate to suggest pneumonia. EKG EKG: sinus Tachycardia, T wave changes in anterior leads Impression Assessment and Plan Acute on chronic Hypercapnic respiratory failure Chronic Oxygen dependency Metabolic Encephalopathy Tox screen positive for Marijuana Likely multifactorial: COPD exacerbation, Pulmonary HTN, chronic bronchiectasis Admit in ICU Vent management per ICU team Started on IV Solu-Medrol, Zosyn, nebs ABG consistent with severe respiratory acidosis [employer]/Pulmonology consulted Blood cultures obtained Lung transplantation suggested by Prior nursing consultant but patient prefers not to proceed Palliative care consulted to identify goals of care Flu screen Negative Chronic diastolic heart failure: Secondary to pulmonary hypertension with suspicion of cor pulmonale No signs of exacerbation continue home diuretics HTN: continue home meds monitor Tobacco use disorder Nicotine patch Anxiety/depression: Continue Paxil Joyce's esophagus: Continue PPI Alcohol use disorder: Thiamine, folic acid DVT Px: SCDs for now Re: Recent H/O Possible GI bleeding/symptomatic anemia Code Status: DNR as per patient's Sister Resuscitation Status VTE Prophylaxis Will order VTE Prophylaxis: Yes
[2017-12-07] MEDS ORDERED: MIDAZOLAM 125MG/250ML D5W 250 ML IV PRN (23:32)
--- NOTE | 2017-12-07 23:32 | Critical Care Consultation ---
Critical Care Consultation Date of Consultation: Dec 07, 2017. Attending Physician: Dr. Dickey Reason for Consultation: Acute on Chronic Respiratory Failure History of Present Illness Iron Cruz is a 62-year-old male with complicated recent past medical history including severe COPD, pulmonary hypertension with suspicion for cor pulmonale, chronic bronchiectasis, with severe right ventricle hypertrophy and grade 1 diastolic heart failure. Patient has been seen and followed by both Dr. Malik and Dr. Adair and was referred for possible heart transplant to which he has recently decided not to pursue. Patient presents to the emergency room today via EMS after calling his sister and asking for help. Patient is unresponsive at the time that I saw him in the emergency department and found him on BiPAP with a ABG of 7.2 //34 with settings of 10/3 and 40%. Per patient's sister he has been declining in health over the past several months and patient has recently said he believes that this is possibly the end of his life. Outpatient records also demonstrate this feeling. Per recent family practice visit in November patient stated he had been getting his affairs in order, spoke with his daughter in [place] and was arranging for friends to get his possessions etc. 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 Patient did require assistance with mobility and shortness of breath to get to work. After that sister did not hear from her brother via phone call or text all day or today. She became concerned and went to his home. She found him in bed very lethargic. She encouraged him to drink Gatorade thinking he was dehydrated and had not been eating for a couple of days. He was wearing his oxygen and she doubted that he had been taking his medications. She did leave to go to dinner at which point she received a phone call from him asking for help; which she states is very out of the ordinary for him. Patient's emergency room treatment included 500 cc bolus of normal saline, a 1 hour long nebulizer treatment, magnesium sulfate 2 g and a half a milligram of Ativan for anxiety while wearing BiPAP. Patient's repeat gas did not improve and patient's mental status had continued to decline. Per emergency room records patient was not withdrawing to pain. He was moved to a trauma bay and intubated using rapid sequence with etomidate and rocuronium. A 7-1/2 ET tube was secured 21 cm the lip using direct visualization with a MAC 5 blade. Post intubation patient's ABG was 7.284/70 9.2/3 112/37.6. I did speak at length with the patient's sister as she is the only local next of kin. She states that there is a another sister in [place]. Patient does also have an ex- in [place] to whom they share 2 children both of whom are college age. Sister alludes to distant relationships between all other family members and the patient. She agreed the patient should be intubated; however, patient would never want a tracheostomy if he cannot come off the ventilator. Should this patient suffered cardiac arrest he would not wish for CPR or heroic measures. Patient's most recent admission was October 03 - October 10, 2017 for symptomatic anemia with suspicion for GI bleed. He was also admitted in August 2017, and January, May and June 2017. Prior admissions include alcohol abuse, syncope, fall, pneumonia, C. difficile colitis and small bowel obstruction. Pulmonology: Patient is followed for severe COPD and pulmonary hypertension group 3 as well as chronic bronchiectasis. Patient began suffering from dyspnea on exertion in approximately April 2017 but was requiring nocturnal oxygen 4 years ago. Patient is a continued smoker. CTA on last admission October 04, 2017 demonstrated severe emphysema. Looking back to patient's records, it appears that this is patient's first intubation for respiratory failure. Cardiology: Last echocardiogram on October 04, 2017 demonstrated severely dilated right ventricle, severely reduced right ventricular systolic function, flattened septum consistent with right ventricular pressure/volume overload, left ventricular systolic function was normal with an EF of 55-60% Findings were suggestive of pulmonary hypertension. When compared to prior studies of May 2017 there had been major changes in the severe right-sided cardiac enlargement and right ventricular pressure and volume overload as well as right ventricular strain pattern. Patient had previously tested positive stress test and underwent cardiac cath in 2013 which was clean deeming stress test as a false positive. During last admission patient was suggested to have a right heart cath, this does not appear to have occurred. It was suggested the patient undergo cardiac transplant. Multiple outpatient records demonstrate the patient no longer wishes to pursue this despite being told by providers that he will likely not survive 1 year without transplant. Chronic pain: Is planning on a right C3-4 and C4-5 cervical facet joint nerve block with pain management with Dr. Yash Cooley cousins ROS could not be obtained secondary to patient condition and eventually sedation and intubation. Past Medical/Surgical History Medical Problems: Joyce's esophagus C. difficile colitis Chronic neck pain Compression fracture Chronic bronchiectasis COPD (chronic obstructive pulmonary disease) Depression History of adenomatous polyp of colon History of alcohol abuse history of Joyce's esophagus History of basal cell carcinoma History of Meckel's diverticulum History of suicide attempt HTN (hypertension) Hx of skin graft Pulmonary hypertension right ventricular heart failure renal cyst Tobacco abuse vitamin D deficiency Surgical Problems: H/O hernia repair History of appendectomy History of colon resection History of esophagogastroduodenoscopy (EGD) Hx of cardiac cath 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 Family History FH: CAD (coronary artery disease) FATHER ([place], bypass) FHx: heart disease SISTER (atrial septal defect) Hypertension FATHER MOTHER Stroke FATHER TIAs FATHER Social History Smoking Status: Current Every Day Smoker Marital Status: single Housing Status: lives alone Occupation Status: employed Allergies Coded Allergies: Shellfish (Verified Allergy, Severe, SOB & SWOLLEN GLANDS FROM SHELLFISH, 10/03/17) Onion (Verified Allergy, Unknown, RASH AND GI UPSET, 10/03/17) Captopril (Verified Adverse Reaction, Intermediate, "felt bad", 10/03/17) Codeine (Verified Adverse Reaction, Unknown, nausea; nightmares, 10/03/17) Home Medications Scheduled Amlodipine (Norvasc), 10 MG PO DAILY Aspirin (Aspirin Ec), 81 MG PO DAILY Diltiazem Hcl (Cardizem), 60 MG PO TID Fluticasone Furoate-Vilanterol (Breo Ellipta), 1 PUFF INH DAILY Furosemide (Lasix), 20 MG PO DAILY Home O2 Therapy (Oxygen), 3 LITERS NA HS Ipratropium [place]orton (Atrovent 0.02% Soln), 2.5 ML NEB QID Levalbuterol Hcl (Levalbuterol), 1.25 MG NEB Q4H Magnesium Oxide (Mag-Ox), 400 MG PO DAILY Metoprolol Succ (Toprol Xl) (Toprol-Xl ), 100 MG PO QAM Pantoprazole (Protonix), 40 MG PO QAM Paroxetine Hcl (Paxil), 20 MG PO DAILY Potassium Chloride (Potassium Chloride ER), 2 MEQ PO DAILY Scheduled PRN Albuterol Sulfate (Proventil Hfa), 2 PUFFS INH Q6H PRN for Shortness of Breath Oxycodone/Acetaminophen 10MG/325MG (Percocet 10MG/325MG), 1 TAB PO Q6H PRN for Pain Zolpidem Tartrate (Ambien), 10 MG PO HS PRN for Sleep Current Inpatient Medications Current Inpatient Medications Medications (Trade) Dose Ordered Sig/Tyree Route Start Time Stop Time Status Last Admin Dose Admin Heparin Sodium (Porcine) (Heparin Sq 5000 Unit/0.5ml) 5,000 unit Q8H SQ 12/07/17 23:30 01/06/18 23:29 UNV Acetaminophen (Tylenol Tab) 650 mg Q4H PRN PO 12/07/17 23:30 01/06/18 23:29 UNV Albuterol/ Ipratropium (Duoneb) 3 ml Q4H PRN INH 12/07/17 23:30 01/06/18 23:29 UNV Miscellaneous Information (Icu Protocol For Hyperglycemia) 1 ea PRN PRN N/A 12/07/17 23:30 12/09/17 23:29 UNV Review of Systems ROS could not be obtained secondary to patient condition and eventually sedation and intubation. Physical Exam Date Time Temp Pulse Resp B/P (MAP) Pulse Ox O2 Delivery O2 Flow Rate FiO2 12/07/17 22:30 95 28 122/77 93 BiPAP 12/07/17 22:00 97 26 129/77 94 BiPAP 40 12/07/17 21:51 97 12/07/17 21:30 102 20 152/88 94 BiPAP 40 12/07/17 21:00 99 20 143/86 92 BiPAP 40 12/07/17 20:45 102 30 94 BiPAP/CPAP 40 12/07/17 20:23 102 91 40 12/07/17 20:13 BiPAP 12/07/17 20:11 98 BiPAP 12/07/17 20:01 98 CPAP 12/07/17 20:01 36.6 107 29 176/102 98 CPAP Vital Signs - as noted Laboratory Data - as noted Physical Exam: General - Intubated and sedated in bed Eyes - PERRL, No icterus, gaze conjugate ENT - Mucosa moist, no lesions or candidiasis Neck - Supple, trachea midline, no masses or lymphadenopathy, no JVD or bruits Lungs - No paradoxical chest wall movement, clear to auscultation bilaterally, no wheezes, rales, or rhonchi Heart - Reg rate and rhythm, No murmur, rubs, clicks, or gallops appreciated Abdomen - BS present, no bruits noted, tympanic to percussion, soft, nondistended, no organomegaly Extremities - Pedal Edema noted Bilaterally, pedal pulses intact Neuro - Rass -2 Strength: Assessed in ED: moved all extremities Reflexes:normal and equal CN:PERRL, no facial asymmetry, uvula/tongue midline Laboratory Results Last 24 Hours Test 12/07/17 20:10 12/07/17 20:19 12/07/17 20:21 12/07/17 21:10 White Blood Count 9.05 K/uL Red Blood Count 4.57 M/uL Hemoglobin 11.4 g/dL Hematocrit 38.0 % Mean Corpuscular Volume 83.2 fL Mean Corpuscular Hemoglobin 24.9 pg Mean Corpuscular Hemoglobin Concent 30.0 g/dl Platelet Count 224 K/uL Mean Platelet Volume 8.5 fL Neutrophils (%) (Auto) 88.8 % Lymphocytes (%) (Auto) 5.3 % Monocytes (%) (Auto) 5.4 % Eosinophils (%) (Auto) 0.0 % Basophils (%) (Auto) 0.2 % Neutrophils # (Auto) 8.03 K/uL Lymphocytes # (Auto) 0.48 K/uL Monocytes # (Auto) 0.49 K/uL Eosinophils # (Auto) 0.00 K/uL Basophils # (Auto) 0.02 K/uL RDW Standard Deviation 67.4 fL RDW Coefficient of Variation 22.3 % Immature Granulocyte % (Auto) 0.3 % Immature Granulocyte # (Auto) 0.03 K/uL Hypochromasia PRESENT Anisocytosis PRESENT Prothrombin Time 10.8 SECONDS Prothromb Time International Ratio 1.0 Activated Partial Thromboplast Time 30.6 SECONDS Partial Thromboplastin Ratio 1.2 Sodium Level 132 mmol/L Potassium Level 4.8 mmol/L Chloride Level 93 mmol/L Carbon Dioxide Level 35 mmol/L Anion Gap 4.0 mmol/L Blood Urea Nitrogen 14 mg/dl Creatinine 0.79 mg/dl Est Creatinine Clear Calc Drug Dose 97.5 ml/min Estimated GFR () 110.0 Estimated GFR (Non- 94.9 BUN/Creatinine Ratio 17.6 Random Glucose 130 mg/dl Calcium Level 8.8 mg/dl Phosphorus Level 3.7 mg/dl Magnesium Level 2.1 mg/dl Total Bilirubin 0.4 mg/dl Aspartate Amino Transf (AST/SGOT) 18 U/L Alanine Aminotransferase (ALT/SGPT) 14 U/L Alkaline Phosphatase 90 U/L Pro-B-Type Natriuretic Peptide 5459 pg/ml Total Protein 7.2 gm/dl Albumin 3.0 gm/dl Globulin 4.2 gm/dl Albumin/Globulin Ratio 0.7 Bedside Troponin I < 0.030 ng/ml Bedside Lactic Acid Venous 0.99 mmol/L Venous Blood pH 7.24 Venous Blood Partial Pressure CO2 80 mmHg Venous Blood Partial Pressure O2 86 mmHg Venous Blood HCO3 34 mmol/L Venous Blood Oxygen Saturation 94.1 % Venous Blood Base Excess 4.5 mEq/L Test 12/07/17 22:07 Venous Blood pH 7.25 Venous Blood Partial Pressure CO2 80 mmHg Venous Blood Partial Pressure O2 73 mmHg Venous Blood HCO3 34 mmol/L Venous Blood Oxygen Saturation 91.0 % Venous Blood Base Excess 4.6 mEq/L Diagnostic Results CHEST ONE VIEW PORTABLE CLINICAL HISTORY: 62 years-old Male presenting with SOB. TECHNIQUE: Portable upright AP view of the chest was obtained. COMPARISON: 10/10/2017. FINDINGS: Atherosclerosis of the aortic arch. Cardiac silhouette normal in size. Heterogeneous and prominent lung markings. No focal opacity. No large effusion or pneumothorax. Suggestion of old right rib fractures. Upper abdomen normal. IMPRESSION: 1. Heterogeneity of lung parenchyma could imply underlying emphysema. No superimposed focal infiltrate to suggest pneumonia. Electronically signed by: Zach Townsend M.D. 12/07/2017 8:37 PM Dictated Date/Time: 12/07/2017 8:36 PM Assessment & Plan (1) Pulmonary HTN (2) Right heart failure with reduced right ventricular function (3) Tobacco abuse (4) Altered mental status (5) COPD exacerbation (6) Hypercapnic respiratory failure (7) Depression (8) Chronic neck pain Reason Critically Ill: Patient is an 62-year-old male who is transferred to the ICU for acute on chronic respiratory heart failure in the setting on known right ventricular diastolic heart failure and pulmonary hypertension with suspected cor pulmonale complicated by severe COPD with emphysema. I have spent a significant amount of time with the pts sister who is aware of the gravity of her brothers prognosis. 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 Pt is a DNR in event of cardiac arrest at this time. Per out pt record pt was preparing for end of life. He is aware that his cardiac condition is terminal without cardiac transplant which he has refused. Palliative consult has been placed. PLAN: Respiratory: * Acute on chronic respiratory failure with hypercapnia * Intubated in emergency room for elevated CO2 of 80 without improvement while on BiPAP 10/3 and 40%; patient with worsening mental status * 7.5 endotracheal tube 24 cm the lip with vent settings: Assist /550/ 5/40% * ABG in AM * Pt sedated on Propofol, Versed and Fentanyl * Wean off Versed as tolerated. Goal RASS overnight -3 * Bilateral lower extremities Doppler to rule out DVT: Wells Criteria for PE 3.0p Moderate Risk Factor * COPD Exacerbation * Severe emphysema per past medical history * First dose of Zosyn 12/08: Patient with chronic bronchiectasis and recent hospitalizations; risk for Pseudomonas * Solu-Medrol 40 mg 3 times daily * Obtain sputum culture * Respiratory regimen in place: Albuterol and Atrovent inhalers 4 puffs each every 4 H * Chest x-ray in the morning * Pulmonology consult placed to Dr. Adair Cardiovascular: * Recent history of right ventricular heart failure likely secondary to pulmonary hypertension with suspicion of cor pulmonale * Continue home cardiac meds * Per patient's sister in the event of cardiac arrest DO NOT RESUSCITATE. This does coincide with outpatient records demonstrating that patient is preparing for his likely terminal illness as he has refused cardiac transplant. * Troponin negative 1 elevated BNP: Repeat labs in the a.m. * Monitor on telemetry * History of hypertension: Blood pressures currently fluctuating secondary to sedation goal map greater than 65 Neuro: * Worsening altered mental status likely secondary to CO2 narcosis * Monitor during sedation vacation * If failure to improve CT head * History of depression * Continue home Paxil * Tobacco dependence * Nicotine patch ordered * Toxicology screen demonstrated positive marijuana use. Opiate also positive as expected; as patient takes home prescription * History of alcohol abuse. As patient has denied marijuana use to his outpatient physicians. I will also treat and monitor for alcohol withdrawal. * Thiamine and multivitamin via OG tube Fluids/Renal: * BUN/creatinine: 14/0.79 * Monitor daily * No history of renal dysfunction * Strict I's and O's * Will monitor for fluid status * Rock to gravity * Monitor and replace electrolytes per protocol ID: * Patient is afebrile, without hypotension or compensatory tachycardia, negative lactic acid with only mildly elevated pro-calcitonin (0.61) * In the setting of severe emphysema and severe COPD will cover for Pseudomonas with Zosyn secondary to chronic bronchiectasis and recent hospitalizations * Trend fever curve monitor for leukocytosis and left shift * PCR Influenza A&B pending * Blood Cultures pending * Sputum Culture ordered GI/Nutrition: * N.p.o. except meds * OG tube placed: KUB demonstrates termination below the diaphragm in the stomach * GI Prophylaxis: Protonix in place. PPI in outpt setting as well Heme: * H&H stable compared to prior admission hemoglobin of 11.4 * Monitored daily * Secondary to recent suspicion of GI bleed and symptomatic anemia will hold chemical prophylaxis * SCDs pending bilateral lower extremity Dopplers * Coags within normal limits Endocrine: * Accu-Checks per protocol, started insulin infusion for 2 blood sugars greater than 180 * No history of diabetes per records * TSH within normal limits CCT: Continuous uninterrupted time from 23:00 - 2:00 for 120 minutes for day of service 12/07/17; This time is exclusive of all separately billable procedures. Thank you for involving us in the care of this patient. Please refer to Dr. Zion Erwin's addendum for further recommendations.
[2017-12-07] MEDS: FENTANYL 1250MCG/250ML NSS 250 ML IV PRN (23:56)
[2017-12-08] VITALS (28 sets, daily range): BP systolic 76–126; BP diastolic 45–80; PULSE 49–92; TEMP 34.6–37.4; O2SAT 83–100; Ht 172.7 cm; Wt 91.1 kg
[2017-12-08] MEDS ORDERED: PROPOFOL IV EMULSION 10 MG/ML 100 ML VIAL IV ONE (01:17)
[2017-12-08] MEDS ORDERED: PIPERACILL/TAZOBAC IV 4.5 GM in DEXTROSE 5% 100ML 100 ML IV SCH (01:30)
[2017-12-08] MEDS ORDERED: PIPERACILL/TAZOBAC IV 3.375 GM in NSS 100 ML IV ONE (01:30)
[2017-12-08] MEDS ORDERED: PIPERACILL/TAZOBAC CONSULT ACTIVE PRN (01:30)
[2017-12-08] MEDS ORDERED: ARTIFICIAL TEARS OP OINT 3.5 GM TUBE OP PRN (02:30)
[2017-12-08] MEDS: METHYLPREDNISOLONE IV 40 MG in SYRINGE 0 ML IV SCH ×3 (02:41→18:23)
[2017-12-08 03:12] LABS: INFLUENZA A PCR Neg for Influ A (NEG); INFLUENZA B PCR Neg for Influ B (NEG)
[2017-12-08] MEDS: ALBUTEROL HFA 8 GM INHALER INH SCH ×4 (04:00→15:30)
[2017-12-08] MEDS: IPRATROPIUM BROMIDE HFA INHALER INH SCH ×4 (04:00→15:30)
--- NOTE | 2017-12-08 06:06 | DIAGNOSTIC IMAGING REPORT ---
ULTRASOUND VENOUS DOPPLER LWR EXT BILA CLINICAL HISTORY: Pulmonary embolus. Leg swelling. COMPARISON STUDY: 05/29/2017 FINDINGS: Real-time and color flow Doppler imaging were performed. Flow was seen within the femoral, popliteal and calf veins with no intraluminal thrombus demonstrated. The saphenous vein is patent. IMPRESSION: No evidence of lower extremity DVT. Electronically signed by: Martinez Garcia M.D. 12/08/2017 6:04 AM Dictated Date/Time: 12/08/2017 6:04 AM
[2017-12-08] MEDS: PIPERACILL/TAZOBAC IV 3.375 GM in NSS 100ML IV SCH ×3 (06:14→22:49)
[2017-12-08] MEDS ORDERED: PNEUMOCOCCAL ADMINISTRATION CHARGE ONE (06:15)
[2017-12-08] MEDS ORDERED: PNEUMOCOCCAL POLYSACCHARIDES 25 MCG/0.5 ML VIAL/SYR IM. ONE (06:15)
[2017-12-08 06:50] LABS: HEMATOCRIT 34.7 % (42-52); HEMOGLOBIN 10.1 g/dL (14.0-18.0); MEAN CORPUSCULAR HEMOGLOBIN 24.2 pg (25-34); MEAN CORPUSCULAR HGB CONC 29.1 g/dl (32-36); MEAN PLATELET VOLUME 8.2 fL (7.4-10.4); PLATELET COUNT 187 K/uL (130-400); RED CELL DISTRIBUTION WIDTH CV 22.1 % (11.5-14.5); RED CELL DISTRIBUTION WIDTH SD 67.7 fL (36.4-46.3); WHITE BLOOD COUNT 4.61 K/uL (4.8-10.8)
[2017-12-08 07:17] LABS: CALCIUM 8.7 mg/dl (8.5-10.1); CREATININE 0.93 mg/dl (0.60-1.40); POTASSIUM 4.8 mmol/L (3.5-5.1)
[2017-12-08 07:19] LABS: PHOSPHORUS 2.4 mg/dl (2.5-4.9)
--- NOTE | 2017-12-08 07:22 | DIAGNOSTIC IMAGING REPORT ---
TROY CLINICAL HISTORY: Study for orogastric tube placement COMPARISON STUDY: 10/05/2017 FINDINGS: There is an enteric tube with its tip at the level the gastric cardia. There is an endotracheal tube positioned 5.5 cm above the michael. There is emphysema with interstitial thickening. IMPRESSION: The patient's enteric tube is positioned with its tip at the level of the gastric cardia Electronically signed by: Martinez Garcia M.D. 12/08/2017 7:20 AM Dictated Date/Time: 12/08/2017 7:19 AM
--- NOTE | 2017-12-08 07:42 | DIAGNOSTIC IMAGING REPORT ---
CHEST ONE VIEW PORTABLE CLINICAL HISTORY: Respiratory failure. Desaturation. COMPARISON STUDY: 12/07/2017 FINDINGS: The endotracheal tube is 63 mm above the michael. There is no focal pulmonary consolidation. There is diffuse interstitial thickening. There is pulmonary emphysema.[ IMPRESSION: 1. Emphysema and stable diffuse interstitial thickening/edema. 2. Endotracheal tube 63 mm above the michael Electronically signed by: Martinez Garcia M.D. 12/08/2017 7:41 AM Dictated Date/Time: 12/08/2017 7:39 AM
--- NOTE | 2017-12-08 07:46 | DIAGNOSTIC IMAGING REPORT ---
CHEST ONE VIEW PORTABLE CLINICAL HISTORY: Endotracheal tube adjustment. Respiratory failure COMPARISON STUDY: 12/07/2017 FINDINGS: There is an endotracheal tube 6.2 cm above the michael. There is pulmonary emphysema. Diffuse interstitial thickening/edema. There is no lobar consolidation. There are no pleural effusions.[ IMPRESSION: Endotracheal tube 6.2 cm above the michael. Electronically signed by: Martinez Garcia M.D. 12/08/2017 7:45 AM Dictated Date/Time: 12/08/2017 7:44 AM
--- NOTE | 2017-12-08 07:47 | DIAGNOSTIC IMAGING REPORT ---
CHEST ONE VIEW PORTABLE CLINICAL HISTORY: Respiratory failure COMPARISON STUDY: 12/07/2017 FINDINGS: There is pulmonary emphysema. There is diffuse interstitial thickening/edema. There is an endotracheal tube positioned 5.3 cm above the michael. There are no cystic or pleural effusions.[ IMPRESSION: 1. Endotracheal tube 5.3 cm above the michael 2. Emphysema 3. Interstitial thickening/edema Electronically signed by: Martinez Garcia M.D. 12/08/2017 7:46 AM Dictated Date/Time: 12/08/2017 7:45 AM
--- NOTE | 2017-12-08 07:52 | DIAGNOSTIC IMAGING REPORT ---
CHEST ONE VIEW PORTABLE CLINICAL HISTORY: Respiratory failure COMPARISON STUDY: Earlier in the evening FINDINGS: The chest is emphysematous configuration. There is mild interstitial thickening/edema. There is an endotracheal tube positioned 13 cm above the michael.[ IMPRESSION: Endotracheal tube 13 cm above the michael. Electronically signed by: Martinez Garcia M.D. 12/08/2017 7:50 AM Dictated Date/Time: 12/08/2017 7:50 AM
--- NOTE | 2017-12-08 07:53 | DIAGNOSTIC IMAGING REPORT ---
CHEST ONE VIEW PORTABLE CLINICAL HISTORY: Respiratory failure COMPARISON STUDY: 12/07/2017 FINDINGS: There is radiographic evidence of emphysema. There is mild interstitial thickening/edema. There is an endotracheal tube 10.4 cm above the michael.[ IMPRESSION: Endotracheal tube 10.4 cm above the michael. Electronically signed by: Martinez Garcia M.D. 12/08/2017 7:51 AM Dictated Date/Time: 12/08/2017 7:51 AM
[2017-12-08] MEDS ORDERED: ALBUT/IPRATROP 3MG/0.5MG NEB 3 ML VIAL INH SCH (08:00)
[2017-12-08 08:12] LABS: IG# 0.01 K/uL (0.00-0.02); LYMPH % 3.5 %; LYMPH ABS # 0.16 K/uL (1.2-3.4); MONO % 3.5 %; MONO ABS # 0.16 K/uL (0.11-0.59); NEUT % 92.8 %; NEUT ABS # 4.28 K/uL (1.4-6.5)
[2017-12-08] MEDS: PANTOprazole INJ 40 MG in SYRINGE 0 ML IV SCH (08:24)
[2017-12-08] MEDS: MULTIVITAMINS W/MINERALS 15ML UDP PO SCH (08:25)
[2017-12-08] MEDS: DILTIAZEM HCL 60 MG TAB PO SCH ×3 (08:25→21:00)
[2017-12-08] MEDS: ASPIRIN 81 MG ECTAB PO SCH (08:26)
[2017-12-08] MEDS: FUROSEMIDE 20 MG TAB PO SCH (08:27)
[2017-12-08] MEDS: AMLODIPINE BESYLATE 5 MG TAB PO SCH (08:28)
[2017-12-08] MEDS: PAROXETINE 20 MG TAB PO SCH (08:30)
[2017-12-08] MEDS: METOPROLOL SUCC 50MG EXT REL TAB PO SCH (08:30)
[2017-12-08] MEDS: THIAMINE HCL 100 MG TAB PO SCH (08:31)
[2017-12-08] MEDS: NICOTINE 14 MG/24 HR TDSY TD SCH (08:31)
[2017-12-08] MEDS ORDERED: PANTOprazole SOD 40 MG TAB PO SCH (09:00)
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
[2017-12-08] MEDS ORDERED: ENOXAPARIN 40 MG/0.4 ML SYR SQ ONE (11:45)
--- NOTE | 2017-12-08 12:02 | Critical Care Progress Note ---
Critical Care Progress Note Date of Service Dec 08, 2017. ICU Day ICU Day Number: [address] Erwin Subjective Pt is laying in bed, is intubated and not agitated at this time. Pt's son and daughter are apparently estranged from him, per sister. Pt's sister is here and is attempting to reach son by phone but has not been able to reach him yet, ex is not answering phone call. Pt's daughter is under the age of 18, but also not returning her phone calls. Pt's friend is here and reiterates that pt would not have wanted to remain intubated. Objective GENERAL: Intubated, sedated HENT: Normocephalic, atraumatic. NECK: Supple. FROM. No JVD. RESPIRATORY: Clear to auscultation. CARDIAC: Regular rate, normal rhythm. Extremities warm and well perfused. Pulses equal. ABDOMEN: Soft, non-distended. No tenderness to palpation. No rebound or guarding. No masses. LOWER EXTREMITIES: Calves are equal size bilaterally and non-tender. No edema. No discoloration. NEURO: CAM +, RASS -3 SKIN: Multiple tattoos. Assessment & Plan (1) Hypoxia (2) COPD exacerbation (3) Hypercapnic respiratory failure (4) Tobacco abuse (5) Altered mental status (6) Pulmonary HTN (7) Right heart failure with reduced right ventricular function (8) HTN (hypertension) (9) COPD (chronic obstructive pulmonary disease) (10) Depression Reason Critically Ill: 62-year-old male with a significant past medical history of end stage COPD and cor pulmonale here for acute on chronic hypoxic respiratory failure requiring intubation. Neuro - CAM ICU: POSITIVE, RASS -3. DC versed, on Fentanyl and Diprivan. Cardiac - Continue home lasix and Toprol BNP is elevated 5459 but was 8900 in Feb ECG shows sinus tachycardia, nonspecific T wave changes, QTc 420ms Echocardiogram 10/04/2017 LV: EF=55-60%, flattened septum consistent with RV pressure volume overload, severely dilated right ventricle, severely reduced function of right atrium, IVC: Sniff indicates elevated right atrial pressure of 15 mmHg. Diastolic grade 1 dysfunction. Severe ERV changes since cardiac echocardiogram 05/29/2017 and cardiac catheterization 04/01/2014 Respiratory - Pulmonology consulted, appreciate recs. Pt is well known to Dr. Adair's service. Apparently pt refused recommended swan serafin and possible lung transplant in the past. End stage COPD, present with hypercapnic respiratory failure. Pt is apparently DNR, however was intubated last night through shared decision making with pt's next of kin. Palliative consult ordered and multiple attempts being made to contact pt's son. ET tube #7.5 AC 20/36/550/5 GI - NPO diet PPI 40mg q24h IV RENAL/LYTES - No significant electrolyte derangement. Replace lytes as needed. - Rock in place. No concerns at this time. ENDO - TSH wnl. BSG 140s. No concerns at this time. HEME - Stable H&H. Will monitor for any drops in the setting of Heparin gtt ID - No concerns for infection at this point. Monitor fever curve. LINES/IV ACCESS - PIVs intact. DVT PROPHYLAXIS - Lovenox 40mg qam. Thank you for allowing us to be part of this patient's care. Please refer to Dr. Erwin's documentation for any further recommendations. Resident Physician Supervision Note: Dr. Letty Arevalo was resident physician during care of patient. I separately evaluated patient and did history and exam. I discussed the case with the resident and generally agree with the findings and plan. Patient is critically ill due to acute hypoxic respiratory failure secondary to COPD exacerbation Discussed the patient's prognosis and care with his sister. Also discussed the case with Dr. Adair. Has been clear through the discussions as well as on prior admissions that the patient did not want heroic measures done in event of cardiac arrest, accordingly he is DO NOT RESUSCITATE in event of cardiac arrest. The patient was working on a lot of his final wishes; however, he was unable to complete a healthcare power of commonwealth attorney and has not completed his living will. The patient has had a divorce and he has 2 adult living children that have largely been estranged from him. His sister is attempting to contact them, as well as his ex- to have them involved in medical decision-making. If his children are unwilling to participate in the medical decision-making he does not have any living parents and he has 2 sisters one who lives here locally as well as 1 in [place] who would then become the medical decision makers. Tomorrow we will hopefully be able to move towards extubation as well as lighten sedation and hopefully be able to engage the patient in end-of-life decision-making. Patient does appear to be an end-stage medical condition without chance of meaningful recovery. I have personally spent 65 minutes of critical care time in the direct management of this patient. This is a life/limb threatening event. This includes time spent evaluating patient, direct bedside care, chart review, placing orders, interpretation of diagnostic studies, discussion with consultants, patient, and/or family members regarding treatment decisions, as well as other required patient management activities. This time is exclusive of all separately billable procedures, and teaching time and separate from and in addition to any other critical care service time. Documented By: Zion Erwin DO Consults & Procedures Consultants: Pulmonology Data Medications: Current Inpatient Medications Medications (Trade) Dose Ordered Sig/Tyree Route Start Time Stop Time Status Last Admin Dose Admin Acetaminophen (Tylenol Tab) 650 mg Q4H PRN PO 12/07/17 23:30 01/06/18 23:29 Miscellaneous Information (Icu Protocol For Hyperglycemia) 1 ea PRN PRN N/A 12/07/17 23:30 12/09/17 23:29 Methylprednisolone Sodium Succinate 40 mg/Syringe 0.64 ml @ 1.5 mls/min Q8H IV 12/08/17 01:00 01/07/18 00:59 12/08/17 08:24 1.5 MLS/MIN Fentanyl Citrate 250 ml @ 0 mls/hr Q0M PRN IV 12/07/17 23:32 12/21/17 23:31 12/07/17 23:56 10 MLS/HR Midazolam HCl 250 ml @ 0 mls/hr Q0M PRN IV 12/07/17 23:32 01/06/18 23:31 12/07/17 23:54 10 MLS/HR Pantoprazole Sodium 40 mg/ Syringe 10 ml @ 5 mls/min Q24H IV 12/08/17 09:00 01/07/18 08:59 12/08/17 08:24 5 MLS/MIN Amlodipine Besylate (Norvasc Tab) 10 mg DAILY PO 12/08/17 09:00 01/07/18 08:59 12/08/17 08:28 10 MG Aspirin (Ecotrin Tab) 81 mg DAILY PO 12/08/17 09:00 01/07/18 08:59 12/08/17 08:26 81 MG Diltiazem HCl (Cardizem Tab) 60 mg TID PO 12/08/17 09:00 01/07/18 08:59 12/08/17 08:25 60 MG Furosemide (Lasix Tab) 20 mg DAILY PO 12/08/17 09:00 01/07/18 08:59 12/08/17 08:27 20 MG Metoprolol Succinate (Toprol Xl Tab) 100 mg QAM PO 12/08/17 09:00 01/07/18 08:59 12/08/17 08:30 100 MG Paroxetine HCl (pAXil TAB) 20 mg DAILY PO 12/08/17 09:00 01/07/18 08:59 12/08/17 08:30 20 MG Propofol (Diprivan Iv Emulsion 100ml Vial) 1 dose UD IV 12/08/17 01:07 12/11/17 01:06 Miscellaneous Information (Consult) 1 ea UD PRN N/A 12/08/17 01:30 01/07/18 01:29 Piperacillin Sod/ Tazobactam Sod 3.375 gm/Sodium Chloride 115 ml @ 28.75 mls/ hr Q8H IV 12/08/17 06:00 12/15/17 05:59 12/08/17 06:14 28.75 MLS/HR Artificial Tears (Lacri-Lube Oph Oint) 1 appln UD PRN OP 12/08/17 02:30 01/07/18 02:29 Albuterol (Ventolin Hfa Inhaler) 4 puffs Q4R INH 12/08/17 04:00 01/07/18 03:59 Ipratropium [place] (Atrovent Hfa Inhaler) 4 puffs Q4R INH 12/08/17 04:00 01/07/18 03:59 Multivitamins Therapeutic (Cerovite Liquid) 15 ml QAM PO 12/08/17 09:00 01/07/18 08:59 12/08/17 08:25 15 ML Thiamine HCl (Vitamin B-1 Tab) 100 mg QAM PO 12/08/17 09:00 01/07/18 08:59 12/08/17 08:31 100 MG Nicotine (Nicoderm Cq 14MG Patch) 1 patch QAM TD 12/08/17 09:00 01/07/18 08:59 12/08/17 08:31 1 PATCH Miscellaneous (Remove Nicoderm Patch) 1 ea HS N/A 12/08/17 21:00 01/07/18 20:59 Vital Signs: Date Time Temp Pulse Resp B/P (MAP) Pulse Ox O2 Delivery O2 Flow Rate FiO2 12/08/17 11:29 30 12/08/17 07:35 35 12/08/17 06:00 79 21 110/69 (83) 99 12/08/17 06:00 79 21 110/69 (83) 99 12/08/17 05:49 40 12/08/17 05:00 82 21 110/67 (81) 99 12/08/17 05:00 82 21 110/67 (81) 99 12/08/17 04:00 35 12/08/17 04:00 Mechanical Ventilator 35 12/08/17 04:00 83 21 107/65 (72) 100 12/08/17 04:00 36.6 83 21 107/65 (79) Mechanical Ventilator 35 12/08/17 03:04 40 12/08/17 03:01 80 18 95/58 (65) 99 12/08/17 03:01 80 18 95/58 (70) 99 12/08/17 02:39 83 18 98/58 (71) 99 12/08/17 02:39 83 18 98/58 (69) 99 12/08/17 02:14 86 18 85/49 (61) 97 12/08/17 02:14 86 18 85/49 (62) 97 12/08/17 02:00 84 18 76/45 (55) 12/08/17 02:00 84 18 76/45 (53) 12/08/17 01:26 87 18 101/58 (75) 96 12/08/17 01:26 87 18 101/58 (72) 96 12/08/17 01:03 40 12/08/17 01:01 88 18 101/52 (70) 97 12/08/17 01:01 88 18 101/52 (68) 97 12/08/17 01:00 37.4 88 18 101/52 Mechanical Ventilator 40 12/08/17 00:27 82 18 118/65 (74) 100 12/08/17 00:15 92 18 115/68 95 12/08/17 00:05 92 18 115/68 95 12/08/17 00:05 92 0 115/68 (80) 95 12/08/17 00:00 87 16 126/78 83 12/08/17 00:00 87 16 126/78 (82) 83 12/07/17 23:55 87 16 132/77 (86) 86 12/07/17 23:55 87 16 132/77 86 12/07/17 23:50 89 16 134/75 (85) 91 12/07/17 23:50 89 16 134/75 91 12/07/17 23:45 90 16 144/83 (98) 97 12/07/17 23:45 83 17 144/83 98 BiPAP 40 12/07/17 23:40 91 16 140/85 (96) 100 12/07/17 23:35 92 18 138/83 (89) 100 12/07/17 23:30 60 12/07/17 23:30 95 17 120/74 (81) 100 12/07/17 23:30 95 17 120/74 100 12/07/17 23:27 117/76 12/07/17 23:25 100 16 130/75 99 12/07/17 23:23 88 25 142/80 99 12/07/17 23:15 88 37 128/79 98 12/07/17 22:30 95 28 122/77 93 BiPAP 12/07/17 22:00 97 26 129/77 94 BiPAP 40 12/07/17 21:51 97 12/07/17 21:30 102 20 152/88 94 BiPAP 40 12/07/17 21:00 99 20 143/86 92 BiPAP 40 12/07/17 20:45 102 30 94 BiPAP/CPAP 40 12/07/17 20:23 102 91 40 12/07/17 20:13 BiPAP 12/07/17 20:11 98 BiPAP 12/07/17 20:01 98 CPAP 12/07/17 20:01 36.6 107 29 176/102 98 CPAP Laboratory Results: Last 24 Hours Test 12/07/17 20:10 12/07/17 20:19 12/07/17 20:21 12/07/17 21:10 White Blood Count 9.05 K/uL Red Blood Count 4.57 M/uL Hemoglobin 11.4 g/dL Hematocrit 38.0 % Mean Corpuscular Volume 83.2 fL Mean Corpuscular Hemoglobin 24.9 pg Mean Corpuscular Hemoglobin Concent 30.0 g/dl Platelet Count 224 K/uL Mean Platelet Volume 8.5 fL Neutrophils (%) (Auto) 88.8 % Lymphocytes (%) (Auto) 5.3 % Monocytes (%) (Auto) 5.4 % Eosinophils (%) (Auto) 0.0 % Basophils (%) (Auto) 0.2 % Neutrophils # (Auto) 8.03 K/uL Lymphocytes # (Auto) 0.48 K/uL Monocytes # (Auto) 0.49 K/uL Eosinophils # (Auto) 0.00 K/uL Basophils # (Auto) 0.02 K/uL RDW Standard Deviation 67.4 fL RDW Coefficient of Variation 22.3 % Immature Granulocyte % (Auto) 0.3 % Immature Granulocyte # (Auto) 0.03 K/uL Hypochromasia PRESENT Anisocytosis PRESENT Prothrombin Time 10.8 SECONDS Prothromb Time International Ratio 1.0 Activated Partial Thromboplast Time 30.6 SECONDS Partial Thromboplastin Ratio 1.2 Sodium Level 132 mmol/L Potassium Level 4.8 mmol/L Chloride Level 93 mmol/L Carbon Dioxide Level 35 mmol/L Anion Gap 4.0 mmol/L Blood Urea Nitrogen 14 mg/dl Creatinine 0.79 mg/dl Est Creatinine Clear Calc Drug Dose 97.5 ml/min Estimated GFR () 110.0 Estimated GFR (Non- 94.9 BUN/Creatinine Ratio 17.6 Random Glucose 130 mg/dl Calcium Level 8.8 mg/dl Phosphorus Level 3.7 mg/dl Magnesium Level 2.1 mg/dl Total Bilirubin 0.4 mg/dl Aspartate Amino Transf (AST/SGOT) 18 U/L Alanine Aminotransferase (ALT/SGPT) 14 U/L Alkaline Phosphatase 90 U/L Pro-B-Type Natriuretic Peptide 5459 pg/ml Total Protein 7.2 gm/dl Albumin 3.0 gm/dl Globulin 4.2 gm/dl Albumin/Globulin Ratio 0.7 Bedside Troponin I < 0.030 ng/ml Bedside Lactic Acid Venous 0.99 mmol/L Venous Blood pH 7.24 Venous Blood Partial Pressure CO2 80 mmHg Venous Blood Partial Pressure O2 86 mmHg Venous Blood HCO3 34 mmol/L Venous Blood Oxygen Saturation 94.1 % Venous Blood Base Excess 4.5 mEq/L Test 4/13/18 22:07 12/08/17 01:00 12/08/17 01:44 12/08/17 02:00 Venous Blood pH 7.25 7.31 Venous Blood Partial Pressure CO2 80 mmHg 68 mmHg Venous Blood Partial Pressure O2 73 mmHg 46 mmHg Venous Blood HCO3 34 mmol/L 34 mmol/L Venous Blood Oxygen Saturation 91.0 % 75.0 % Venous Blood Base Excess 4.6 mEq/L 5.8 mEq/L Urine Color DK YELLOW Urine Appearance TURBID Urine pH 5.0 Urine Specific [place] 1.026 Urine Protein 2+ Urine Glucose (UA) NEG Urine Ketones TRACE Urine Occult Blood 1+ Urine Nitrite NEG Urine Bilirubin NEG Urine Urobilinogen NEG Urine Leukocyte Esterase NEG Urine WBC (Auto) 1-5 /hpf Urine RBC (Auto) 5-10 /hpf Urine Hyaline Casts (Auto) 1-5 /lpf Urine Epithelial Cells (Auto) >30 /lpf Urine Bacteria (Auto) NEG Urine Opiates Screen POS Urine Methadone, Qualitative NEG Urine Barbiturates NEG Urine Phencyclidine (PCP) Level NEG Ur Amphetamine/Methamphetamine NEG MDMA (Ecstasy) Screen NEG Urine Benzodiazepines Screen NEG Urine Cocaine Metabolite NEG Urine Marijuana (THC) POS Procalcitonin 0.61 ng/ml Thyroid Stimulating Hormone (TSH) 0.466 uIu/ml Ethyl Alcohol mg/dL < 3.0 mg/dl Influenza Type A (RT-PCR) Neg for Influ A Influenza Type B (RT-PCR) Neg for Influ B Test 12/08/17 02:05 12/08/17 05:39 12/08/17 05:55 12/08/17 07:42 Bedside Glucose 150 mg/dl Blood Gas Sample Site R Radial Bedside Blood Gas pH (LAB) 7.49 Bedside Blood Gas pCO2 (LAB) 41 mmHg Bedside Blood Gas pO2 (LAB) 70 mmHg Bedside Blood Gas HCO3 (LAB) 31 meq/L Bedside Blood Gas Total CO2 32 mEq/l Bedside Blood Gas Base Excess (LAB) 8.0 meq/L Bedside Blood Gas O2 Saturation 95.0 % Carmelo Test Pass Oxygen Delivery Device Ventilator Bedside Oxygen Rate (breaths/min) 21 Blood Gas Minute Ventilation 11.1 Bedside FiO2 35 % Blood Gas Tidal Volume 550 Blood Gas PEEP 5 White Blood Count 4.61 K/uL Red Blood Count 4.18 M/uL Hemoglobin 10.1 g/dL Hematocrit 34.7 % Mean Corpuscular Volume 83.0 fL Mean Corpuscular Hemoglobin 24.2 pg Mean Corpuscular Hemoglobin Concent 29.1 g/dl Platelet Count 187 K/uL Mean Platelet Volume 8.2 fL Neutrophils (%) (Auto) 92.8 % Lymphocytes (%) (Auto) 3.5 % Monocytes (%) (Auto) 3.5 % Eosinophils (%) (Auto) 0.0 % Basophils (%) (Auto) 0.0 % Neutrophils # (Auto) 4.28 K/uL Lymphocytes # (Auto) 0.16 K/uL Monocytes # (Auto) 0.16 K/uL Eosinophils # (Auto) 0.00 K/uL Basophils # (Auto) 0.00 K/uL RDW Standard Deviation 67.7 fL RDW Coefficient of Variation 22.1 % Immature Granulocyte % (Auto) 0.2 % Immature Granulocyte # (Auto) 0.01 K/uL Hypochromasia PRESENT Anisocytosis PRESENT Sodium Level 131 mmol/L Potassium Level 4.8 mmol/L Chloride Level 96 mmol/L Carbon Dioxide Level 29 mmol/L Anion Gap 6.0 mmol/L Blood Urea Nitrogen 20 mg/dl Creatinine 0.93 mg/dl Est Creatinine Clear Calc Drug Dose 85.1 ml/min Estimated GFR () 100.2 Estimated GFR (Non- 86.5 BUN/Creatinine Ratio 21.4 Random Glucose 149 mg/dl Calcium Level 8.7 mg/dl Phosphorus Level 2.4 mg/dl Magnesium Level 2.5 mg/dl Osmolality 285 mOsm/kg
--- NOTE | 2017-12-08 13:29 | DIAGNOSTIC IMAGING REPORT ---
CHEST ONE VIEW PORTABLE CLINICAL HISTORY: Respiratory failure COMPARISON STUDY: 12/08/2017 FINDINGS: There is an endotracheal tube 36 mm above the michael. There is radiographic evidence of emphysema. There is persistent interstitial thickening/edema. There is been interval placement of a nasogastric tube. The tip is only visualized to the mid esophageal level. The tip termination cannot be determined on the basis of this study.[ IMPRESSION: 1. Endotracheal tube 36 mm above the michael 2. Persistent interstitial thickening/edema. Emphysema. 3. Interval placement of a nasogastric tube. The tip is visualized to the mid esophageal level. The tip termination cannot be determined on the basis of this study. Electronically signed by: Martinez Garcia M.D. 12/08/2017 1:27 PM Dictated Date/Time: 12/08/2017 1:24 PM
[2017-12-08] MEDS: SODIUM CHLORIDE 0.9% 1000ML 1,000 ML IV SCH (14:03)
[2017-12-08] MEDS: FENTANYL 1250MCG/250ML NSS 250 ML IV PRN (14:05)
[2017-12-08] MEDS: DOXYCYCLINE IV 100 MG in DEXTROSE 5% 100ML 100 ML IV SCH ×2 (14:07→21:16)
--- NOTE | 2017-12-08 18:47 | Progress Note ---
Internal Med Progress Note Date of Service: Dec 08, 2017. Provider Documentation: SUBJECTIVE: s/p intubated and sedated unresponsive OBJECTIVE: Vital Signs-as noted below Exam: General-s/p intubated and sedated Neck-No neck masses seen Lungs-CTA b/l no wheezing or crackles Heart-S1 and S2 heard regular rhythm no murmurs Abdomen-soft Bowels sounds present no distension Extremities-no edema no erythema Neuro-s/p intubated and sedated Lab data as noted below. ASSESSMENT & PLAN: Acute on chronic Hypercapnic respiratory failure Metabolic Encephalopathy from above co2 retention Tox screen positive for Marijuana Most likely from : COPD exacerbation, Pulmonary HTN,and cor pulmonale s/p intubated Vent management per critical care on IV Solu-Medrol, Zosyn and doxy, nebs Flu negative Lung transplantation suggested by Prior bilingual research interviewer but patient refused as per records Palliative care consulted appreciate critical care and pulmonary inputs plan for extubation in am Chronic diastolic heart failure: Secondary to pulmonary hypertension and cor pulmonale home diuretics on hold on gentle fluids will monitor HTN: on diltiazem and metoprolol will monitor Tobacco use disorder Nicotine patch Anxiety/depression: Paxil Joyce's esophagus: PPI Alcohol use disorder: Thiamine, folic acid DVT Px: Lovenox DISPOSITION monitor in icu await palliative care consult Vital Signs: Date Time Temp Pulse Resp B/P (MAP) Pulse Ox O2 Delivery O2 Flow Rate FiO2 12/08/17 17:33 30 12/08/17 16:00 95 Mechanical Ventilator 35 12/08/17 16:00 35 12/08/17 16:00 51 20 95/58 (70) 95 Mechanical Ventilator 35 12/08/17 14:30 30 12/08/17 14:00 77 20 114/67 (83) 95 Mechanical Ventilator 35 12/08/17 12:00 95 Mechanical Ventilator 35 12/08/17 12:00 63 21 108/73 (85) 95 Mechanical Ventilator 35 12/08/17 12:00 35 12/08/17 11:29 30 12/08/17 11:00 68 21 118/80 (93) 94 Mechanical Ventilator 35 12/08/17 10:00 75 20 115/78 (90) 97 Mechanical Ventilator 35 12/08/17 09:00 77 14 119/72 (88) 97 Mechanical Ventilator 35 12/08/17 08:00 35 12/08/17 08:00 95 Mechanical Ventilator 35 12/08/17 08:00 36.4 74 28 122/75 (91) 95 Mechanical Ventilator 35 12/08/17 07:35 35 12/08/17 07:00 36.6 79 21 110/69 (83) 99 12/08/17 06:00 79 21 110/69 (83) 99 12/08/17 06:00 79 21 110/69 (83) 99 12/08/17 05:49 40 12/08/17 05:00 82 21 110/67 (81) 99 12/08/17 05:00 82 21 110/67 (81) 99 12/08/17 04:00 35 12/08/17 04:00 Mechanical Ventilator 35 12/08/17 04:00 83 21 107/65 (72) 100 12/08/17 04:00 36.6 83 21 107/65 (79) Mechanical Ventilator 35 12/08/17 03:04 40 12/08/17 03:01 80 18 95/58 (65) 99 12/08/17 03:01 80 18 95/58 (70) 99 12/08/17 02:39 83 18 98/58 (71) 99 12/08/17 02:39 83 18 98/58 (69) 99 12/08/17 02:14 86 18 85/49 (61) 97 12/08/17 02:14 86 18 85/49 (62) 97 12/08/17 02:00 84 18 76/45 (55) 12/08/17 02:00 84 18 76/45 (53) 12/08/17 01:26 87 18 101/58 (75) 96 12/08/17 01:26 87 18 101/58 (72) 96 12/08/17 01:03 40 12/08/17 01:01 88 18 101/52 (70) 97 12/08/17 01:01 88 18 101/52 (68) 97 12/08/17 01:00 37.4 88 18 101/52 Mechanical Ventilator 40 12/08/17 00:27 82 18 118/65 (74) 100 12/08/17 00:15 92 18 115/68 95 12/08/17 00:05 92 18 115/68 95 12/08/17 00:05 92 0 115/68 (80) 95 12/08/17 00:00 87 16 126/78 83 12/08/17 00:00 87 16 126/78 (82) 83 12/07/17 23:55 87 16 132/77 (86) 86 12/07/17 23:55 87 16 132/77 86 12/07/17 23:50 89 16 134/75 (85) 91 12/07/17 23:50 89 16 134/75 91 12/07/17 23:45 90 16 144/83 (98) 97 12/07/17 23:45 83 17 144/83 98 BiPAP 40 12/07/17 23:40 91 16 140/85 (96) 100 12/07/17 23:35 92 18 138/83 (89) 100 12/07/17 23:30 60 12/07/17 23:30 95 17 120/74 (81) 100 12/07/17 23:30 95 17 120/74 100 12/07/17 23:27 117/76 12/07/17 23:25 100 16 130/75 99 12/07/17 23:23 88 25 142/80 99 12/07/17 23:15 88 37 128/79 98 12/07/17 22:30 95 28 122/77 93 BiPAP 12/07/17 22:00 97 26 129/77 94 BiPAP 40 12/07/17 21:51 97 12/07/17 21:30 102 20 152/88 94 BiPAP 40 12/07/17 21:00 99 20 143/86 92 BiPAP 40 12/07/17 20:45 102 30 94 BiPAP/CPAP 40 12/07/17 20:23 102 91 40 12/07/17 20:13 BiPAP 12/07/17 20:11 98 BiPAP 12/07/17 20:01 98 CPAP 12/07/17 20:01 36.6 107 29 176/102 98 CPAP Lab Results: Results Past 24 Hours Test 12/07/17 20:10 12/07/17 20:19 12/07/17 20:21 12/07/17 21:10 Range/Units White Blood Count 9.05 4.8-10.8 K/uL Red Blood Count 4.57 4.7-6.1 M/uL Hemoglobin 11.4 14.0-18.0 g/dL Hematocrit 38.0 42-52 % Mean Corpuscular Volume 83.2 80-100 fL Mean Corpuscular Hemoglobin 24.9 25-34 pg Mean Corpuscular Hemoglobin Concent 30.0 32-36 g/dl Platelet Count 224 130-400 K/uL Mean Platelet Volume 8.5 7.4-10.4 fL Neutrophils (%) (Auto) 88.8 % Lymphocytes (%) (Auto) 5.3 % Monocytes (%) (Auto) 5.4 % Eosinophils (%) (Auto) 0.0 % Basophils (%) (Auto) 0.2 % Neutrophils # (Auto) 8.03 1.4-6.5 K/uL Lymphocytes # (Auto) 0.48 1.2-3.4 K/uL Monocytes # (Auto) 0.49 0.11-0.59 K/uL Eosinophils # (Auto) 0.00 0-0.5 K/uL Basophils # (Auto) 0.02 0-0.2 K/uL RDW Standard Deviation 67.4 36.4-46.3 fL RDW Coefficient of Variation 22.3 11.5-14.5 % Immature Granulocyte % (Auto) 0.3 % Immature Granulocyte # (Auto) 0.03 0.00-0.02 K/uL Hypochromasia PRESENT Anisocytosis PRESENT Prothrombin Time 10.8 9.0-12.0 SECONDS Prothromb Time International Ratio 1.0 0.9-1.1 Activated Partial Thromboplast Time 30.6 21.0-31.0 SECONDS Partial Thromboplastin Ratio 1.2 Sodium Level 132 136-145 mmol/L Potassium Level 4.8 3.5-5.1 mmol/L Chloride Level 93 98-107 mmol/L Carbon Dioxide Level 35 21-32 mmol/L Anion Gap 4.0 3-11 mmol/L Blood Urea Nitrogen 14 7-18 mg/dl Creatinine 0.79 0.60-1.40 mg/dl Est Creatinine Clear Calc Drug Dose 97.5 ml/min Estimated GFR () 110.0 Estimated GFR (Non- 94.9 BUN/Creatinine Ratio 17.6 10-20 Random Glucose 130 70-99 mg/dl Calcium Level 8.8 8.5-10.1 mg/dl Phosphorus Level 3.7 2.5-4.9 mg/dl Magnesium Level 2.1 1.8-2.4 mg/dl Total Bilirubin 0.4 0.2-1 mg/dl Aspartate Amino Transf (AST/SGOT) 18 15-37 U/L Alanine Aminotransferase (ALT/SGPT) 14 12-78 U/L Alkaline Phosphatase 90 45-117 U/L Pro-B-Type Natriuretic Peptide 5459 0-900 pg/ml Total Protein 7.2 6.4-8.2 gm/dl Albumin 3.0 3.4-5.0 gm/dl Globulin 4.2 2.5-4.0 gm/dl Albumin/Globulin Ratio 0.7 0.9-2 Bedside Troponin I < 0.030 0-0.045 ng/ml Bedside Lactic Acid Venous 0.99 0.90-1.70 mmol/L Venous Blood pH 7.24 7.36-7.41 Venous Blood Partial Pressure CO2 80 38.0-50.0 mmHg Venous Blood Partial Pressure O2 86 mmHg Venous Blood HCO3 34 mmol/L Venous Blood Oxygen Saturation 94.1 % Venous Blood Base Excess 4.5 mEq/L Test 12/07/17 22:07 12/08/17 01:00 12/08/17 01:44 12/08/17 02:00 Range/Units Venous Blood pH 7.25 7.31 7.36-7.41 Venous Blood Partial Pressure CO2 80 68 38.0-50.0 mmHg Venous Blood Partial Pressure O2 73 46 mmHg Venous Blood HCO3 34 34 mmol/L Venous Blood Oxygen Saturation 91.0 75.0 % Venous Blood Base Excess 4.6 5.8 mEq/L Urine Color DK YELLOW Urine Appearance TURBID CLEAR Urine pH 5.0 4.5-7.5 Urine Specific [place] 1.026 1.000-1.030 Urine Protein 2+ NEG Urine Glucose (UA) NEG NEG Urine Ketones TRACE NEG Urine Occult Blood 1+ NEG Urine Nitrite NEG NEG Urine Bilirubin NEG NEG Urine Urobilinogen NEG NEG Urine Leukocyte Esterase NEG NEG Urine WBC (Auto) 1-5 0-5 /hpf Urine RBC (Auto) 5-10 0-4 /hpf Urine Hyaline Casts (Auto) 1-5 0-5 /lpf Urine Epithelial Cells (Auto) >30 0-5 /lpf Urine Bacteria (Auto) NEG NEG Urine Opiates Screen POS NEG Urine Methadone, Qualitative NEG NEG Urine Barbiturates NEG NEG Urine Phencyclidine (PCP) Level NEG NEG Ur Amphetamine/Methamphetamine NEG NEG MDMA (Ecstasy) Screen NEG NEG Urine Benzodiazepines Screen NEG NEG Urine Cocaine Metabolite NEG NEG Urine Marijuana (THC) POS NEG Procalcitonin 0.61 0-0.5 ng/ml Thyroid Stimulating Hormone (TSH) 0.466 0.300-4.500 uIu/ml Ethyl Alcohol mg/dL < 3.0 0-3 mg/dl Influenza Type A (RT-PCR) Neg for Influ A NEG Influenza Type B (RT-PCR) Neg for Influ B NEG Test 12/08/17 02:05 12/08/17 05:39 12/08/17 05:55 12/08/17 07:42 Range/Units Bedside Glucose 150 70-99 mg/dl Blood Gas Sample Site R Radial Bedside Blood Gas pH (LAB) 7.49 7.35-7.45 Bedside Blood Gas pCO2 (LAB) 41 35-46 mmHg Bedside Blood Gas pO2 (LAB) 70 80-95 mmHg Bedside Blood Gas HCO3 (LAB) 31 19-24 meq/L Bedside Blood Gas Total CO2 32 24-31 mEq/l Bedside Blood Gas Base Excess (LAB) 8.0 -9-1.8 meq/L Bedside Blood Gas O2 Saturation 95.0 90-95 % Carmelo Test Pass Oxygen Delivery Device Ventilator Bedside Oxygen Rate (breaths/min) 21 Blood Gas Minute Ventilation 11.1 Bedside FiO2 35 % Blood Gas Tidal Volume 550 Blood Gas PEEP 5 White Blood Count 4.61 4.8-10.8 K/uL Red Blood Count 4.18 4.7-6.1 M/uL Hemoglobin 10.1 14.0-18.0 g/dL Hematocrit 34.7 42-52 % Mean Corpuscular Volume 83.0 80-100 fL Mean Corpuscular Hemoglobin 24.2 25-34 pg Mean Corpuscular Hemoglobin Concent 29.1 32-36 g/dl Platelet Count 187 130-400 K/uL Mean Platelet Volume 8.2 7.4-10.4 fL Neutrophils (%) (Auto) 92.8 % Lymphocytes (%) (Auto) 3.5 % Monocytes (%) (Auto) 3.5 % Eosinophils (%) (Auto) 0.0 % Basophils (%) (Auto) 0.0 % Neutrophils # (Auto) 4.28 1.4-6.5 K/uL Lymphocytes # (Auto) 0.16 1.2-3.4 K/uL Monocytes # (Auto) 0.16 0.11-0.59 K/uL Eosinophils # (Auto) 0.00 0-0.5 K/uL Basophils # (Auto) 0.00 0-0.2 K/uL RDW Standard Deviation 67.7 36.4-46.3 fL RDW Coefficient of Variation 22.1 11.5-14.5 % Immature Granulocyte % (Auto) 0.2 % Immature Granulocyte # (Auto) 0.01 0.00-0.02 K/uL Hypochromasia PRESENT Anisocytosis PRESENT Sodium Level 131 136-145 mmol/L Potassium Level 4.8 3.5-5.1 mmol/L Chloride Level 96 98-107 mmol/L Carbon Dioxide Level 29 21-32 mmol/L Anion Gap 6.0 3-11 mmol/L Blood Urea Nitrogen 20 7-18 mg/dl Creatinine 0.93 0.60-1.40 mg/dl Est Creatinine Clear Calc Drug Dose 85.1 ml/min Estimated GFR () 100.2 Estimated GFR (Non- 86.5 BUN/Creatinine Ratio 21.4 10-20 Random Glucose 149 70-99 mg/dl Calcium Level 8.7 8.5-10.1 mg/dl Phosphorus Level 2.4 2.5-4.9 mg/dl Magnesium Level 2.5 1.8-2.4 mg/dl Osmolality 285 280-300 mOsm/kg Microbiology Results 12/07/17 Blood Culture, Received Pending 12/07/17 Blood Culture, Received Pending 12/08/17 MRSA DNA Surveillance Screen - Final, Complete Specimen Negative for MRSA by DNA Probe
--- NOTE | 2017-12-08 19:22 | ECHOCARDIOGRAM REPORT ---
*NOTICE TO RECEIVING LIBERTARIAN AGENCY This information is strictly Confidential and protected under [place] law. [place] law prohibits you from making any further disclosure of this information unless further disclosure is expressly permitted by the written consent of the person to whom it pertains or is authorized by law. A general authorization for the release of medical or other information is not sufficient for this purpose. Hospital accepts no responsibility if the information is made available to any other person, INCLUDING THE PATIENT. Interpretation Summary * Name: KIRBY GERMAN Study Date: 12/08/2017 02:15 PM BP: 110/67 mmHg * [facility] HR: 82 * : 1955 (M/d/yyyy) Gender: Male Height: 70 in * Age: 62 yrs Ethnicity: CA Weight: 192 lb * Ordering Physician: Joe Dickey * Referring Physician: Self, Referred * Performed By: Martell Encarnacion RCS * * Reason For Study: CHEST PAIN * BSA: 2.1 m2 * -- Conclusions -- * The study was technically limited, but adequate for the indication. * The left ventricular wall motion is normal. * The LV Ejection Fraction = 55-60%. * The right ventricle is normal size with normal right ventricular systolic function. * There is mild right ventricular hypertrophy. * The right ventricular systolic function is normal as assessed by tricuspid annular plane systolic excursion (TAPSE) (normal >1.5 cm). * Dilated inferior vena cava with reduced collapsability with sniff indicates an elevated right atrial pressure of 15 mmHg. * Moderate pulmonary hypertension is present. * The PA systolic pressure is calculated to be 51 mm Hg, assuming a right atrial pressure of 15 mm Hg. * There is a trace loculated right lateral pericardial effusion. * Compared to the images of the prior study dated 10/04/17, there has been in interval improvement in the right ventricular chamber size and interventricular septal flattening noted on that study. Procedure Details * A complete two-dimensional transthoracic echocardiogram was performed (2D, M-mode, Doppler and color flow Doppler). * There were technical limitations due to patient'ssupine positioning while on mechanical ventilation Left Ventricle * The left ventricle is normal in size. * There is normal left ventricular wall thickness. * Ejection Fraction = 55-60%. * Left ventricular systolic function is normal. * The left ventricular wall motion is normal. Right Ventricle * The right ventricle is normal size. * There is mild right ventricular hypertrophy. * Moderate pulmonary hypertension is present. The PA systolic pressure is calculated to be 51 mm Hg, assuming a right atrial pressure of 15 mm Hg. * The right ventricular systolic function is normal as assessed by tricuspid annular plane systolic excursion (TAPSE) (normal >1.5 cm). Atria * The left atrial size is normal. * The right atrium is borderline dilated. * There is no evidence of atrial septal defect, but resolution does not allow assessment for a patent foramen ovale. Mitral Valve * The mitral valve is normal. * There is no mitral valve stenosis. * Significant mitral regurgitation is absent. Tricuspid Valve * The tricuspid valve is normal. * There is no tricuspid stenosis. * Significant tricuspid regurgitation is absent. * Moderate pulmonary hypertension is present. The PA systolic pressure is calculated to be 51 mm Hg, assuming a right atrial pressure of 15 mm Hg. Aortic Valve * The aortic valve is trileaflet. * Aortic valve sclerosis moderate, without significant aortic valvular stenosis. * Aortic stenosis is absent. * There is no significant aortic regurgitation. Pulmonic Valve * The pulmonary valve is not well seen, but the Doppler examination is normal without significant regurgitation or stenosis. Great Vessels * The aortic root and proximal ascending aorta are normal sized. Pericardium/Pleural * There is a trace loculated right lateral pericardial effusion. Great Vessels * Dilated inferior vena cava with reduced collapsability with sniff indicates an elevated right atrial pressure of 15 mmHg Left Ventricular Diastolic Function * Grade I diastolic dysfunction, (abnormal relaxation pattern). MMode 2D Measurements and Calculations IVSd 1.1 cm IVSs 1.3 cm LVIDd 5.0 cm LVIDs 3.2 cm LVPWd 1.1 cm LVPWs 1.2 cm IVS/LVPW 1.0 FS 37.0 % EDV(Teich) 118.4 ml ESV(Teich) 39.4 ml EF(Teich) 66.7 % EDV(cubed) 125.2 ml ESV(cubed) 31.3 ml EF(cubed) 75.0 % % IVS thick 21.0 % % LVPW thick 10.8 % LV mass(C)d 204.7 grams LV mass(C)dI 99.8 grams/m\S\2 LV mass(C)s 127.1 grams LV mass(C)sI 61.9 grams/m\S\2 SV(Teich) 78.9 ml SI(Teich) 38.5 ml/m\S\2 SV(cubed) 93.9 ml SI(cubed) 45.8 ml/m\S\2 Ao root diam 3.8 cm Ao root area 11.5 cm\S\2 ACS 1.6 cm LA dimension 3.3 cm asc Aorta Diam 2.9 cm LA/Ao 0.86 LVAd ap4 29.3 cm\S\2 LVLd ap4 7.5 cm EDV(MOD-sp4) 100.0 ml EDV(sp4-el) 96.6 ml LVAs ap4 17.1 cm\S\2 LVLs ap4 6.1 cm ESV(MOD-sp4) 46.6 ml ESV(sp4-el) 40.8 ml EF(MOD-sp4) 53.4 % EF(sp4-el) 57.8 % LVAd ap2 30.9 cm\S\2 LVLd ap2 7.6 cm EDV(MOD-sp2) 105.0 ml EDV(sp2-el) 106.6 ml LVAs ap2 16.8 cm\S\2 LVLs ap2 5.5 cm ESV(MOD-sp2) 46.5 ml ESV(sp2-el) 43.8 ml EF(MOD-sp2) 55.7 % EF(sp2-el) 59.0 % LVLd %diff 1.2 % EDV(MOD-bp) 102.9 ml LVLs %diff -10.98 % ESV(MOD-bp) 46.4 ml EF(MOD-bp) 54.9 % SV(MOD-sp4) 53.4 ml SI(MOD-sp4) 26.0 ml/m\S\2 SV(MOD-sp2) 58.4 ml SI(MOD-sp2) 28.5 ml/m\S\2 SV(MOD-bp) 56.5 ml SI(MOD-bp) 27.6 ml/m\S\2 SV(sp4-el) 55.8 ml SI(sp4-el) 27.2 ml/m\S\2 SV(sp2-el) 62.9 ml SI(sp2-el) 30.6 ml/m\S\2 Doppler Measurements and Calculations MV E max sherita 63.6 cm/sec MV A max sherita 75.0 cm/sec MV E/A 0.85 MV P1/2t max sherita 69.1 cm/sec MV P1/2t 82.7 msec MVA(P1/2t) 2.7 cm\S\2 MV dec slope 244.6 cm/sec\S\2 MV dec time 0.23 sec Ao V2 max 143.8 cm/sec Ao max PG 8.3 mmHg Ao max PG (full) 5.3 mmHg LV V1 max PG 3.0 mmHg LV V1 max 86.9 cm/sec PA V2 max 80.9 cm/sec PA max PG 2.6 mmHg TR max sherita 300.7 cm/sec
[2017-12-08] MEDS: PROPOFOL IV EMULSION 10 MG/ML 100 ML VIAL IV SCH (21:15)
[2017-12-09] VITALS (23 sets, daily range): BP systolic 91–179; BP diastolic 54–91; PULSE 71–119; TEMP 36.2–37.2; O2SAT 81–99
[2017-12-09] MEDS: METHYLPREDNISOLONE IV 40 MG in SYRINGE 0 ML IV SCH ×3 (01:03→16:21)
[2017-12-09] MEDS: SODIUM CHLORIDE 0.9% 1000ML 1,000 ML IV SCH (01:05)
[2017-12-09] MEDS: FENTANYL 1250MCG/250ML NSS 250 ML IV PRN (02:00)
[2017-12-09] MEDS: PROPOFOL IV EMULSION 10 MG/ML 100 ML VIAL IV SCH (04:44)
--- NOTE | 2017-12-09 04:53 | Critical Care Progress Note ---
Critical Care Progress Note Date of Service Dec 09, 2017. ICU Day ICU Day Number: [address] Erwin Subjective Pt still intubated, em orellanaer applied overnight for rectal temp of 34.6. Last reading is 37. BP stable. RASS -2 Objective GENERAL: Intubated, sedated HENT: Normocephalic, atraumatic. NECK: Supple. FROM. No JVD. RESPIRATORY: Clear to auscultation. ET tube #7.5 AC 20/36/550/5 CARDIAC: Regular rate, normal rhythm. Extremities warm and well perfused. Pulses equal. ABDOMEN: Soft, non-distended. No tenderness to palpation. No rebound or guarding. No masses. LOWER EXTREMITIES: Calves are equal size bilaterally and non-tender. No edema. No discoloration. NEURO: CAM +, RASS -3 SKIN: Multiple tattoos. Assessment & Plan (1) Hypoxia (2) COPD exacerbation (3) Hypercapnic respiratory failure (4) Tobacco abuse (5) Altered mental status (6) Pulmonary HTN (7) Right heart failure with reduced right ventricular function (8) HTN (hypertension) (9) COPD (chronic obstructive pulmonary disease) (10) Depression Reason Critically Ill: 62-year-old male with a significant past medical history of end stage COPD and cor pulmonale here for acute on chronic hypoxic respiratory failure requiring intubation. Neuro - CAM ICU: POSITIVE, RASS -2. Spontaneous awake trial this morning Cardiac - Continue home lasix and Toprol Echocardiogram 10/04/2017 LV: EF=55-60%, flattened septum consistent with RV pressure volume overload, severely dilated right ventricle, severely reduced function of right atrium, IVC: Sniff indicates elevated right atrial pressure of 15 mmHg. Diastolic grade 1 dysfunction. Severe ERV changes since cardiac echocardiogram 05/29/2017 and cardiac catheterization 04/01/2014 Respiratory - Pulmonology consulted, appreciate recs. Pt is well known to Dr. Adair's service. Apparently pt refused recommended swan serafin and possible lung transplant in the past. End stage COPD, present with hypercapnic respiratory failure. Pt is apparently DNR, however was intubated on night of admission through shared decision making with pt's next of kin. Palliative consult ordered and multiple attempts being made to contact pt's son. ET tube #7.5 AC 20/36/550/5 Spontaneous awake trial as above today GI - NPO diet PPI 40mg q24h IV RENAL/LYTES - GABY evident this morning. Gentle hydration with Normasol ordered @ 75 ml/ hr. Follow for signs of fluid overload. DC Lovenox. - Rock in place. No concerns at this time. ENDO - TSH wnl. BSG 140s. No concerns at this time. HEME - Stable H&H. Will monitor for any drops in the setting of Heparin gtt ID - No concerns for infection at this point. Monitor fever curve. LINES/IV ACCESS - PIVs intact. DVT PROPHYLAXIS - DC Lovenox, switch to Heparin to protect kidneys in light of GABY Thank you for allowing us to be part of this patient's care. Please refer to Dr. Erwin's documentation for any further recommendations. Resident Physician Supervision Note: Dr. Letty Arevalo was resident physician during care of patient. I separately evaluated patient and did history and exam. I discussed the case with the resident and generally agree with the findings and plan. Patient was able to follow complex commands during sedation vacation this morning. No obvious evidence of pneumonia, minimal ventilator settings, RSBI approximately 70. Meeting criteria for extubation. Patient was successfully extubated and we have attempted to address the patient's long-term goals with him. I had an extensive discussion with the patient at his bedside in the presence of his friends. Patient does have capacity to make his medical decisions and clearly understood very nuanced positions in our discussion. The patient understands that he is near the end of his life with regards to his lung disease. His ultimate goal would be to live in additional month in order to finalize some affairs. Patient does admit that he does not want resuscitated in event of cardiac arrest. He also understands that in terms of narcotic pain medication would decrease his responsiveness and may lead to hypercarbic respiratory failure and subsequent intubation. Additionally the patient also wants to go home where he lives in a trailer. I explained to him that it may be highly unlikely that he makes it back to his trailer even after this COPD exacerbation. He concluded obviously that if he was intubated unable to liberate from the ventilator and underwent tracheostomy this would preclude him from going home. He is struggling with the decision of what he wants reintubation and events of respiratory insufficiency/respiratory arrest. I have personally spent 125 minutes of critical care time in the direct management of this patient. This is a life/limb threatening event. This includes time spent evaluating patient, direct bedside care, chart review, placing orders, interpretation of diagnostic studies, discussion with consultants, patient, and/or family members regarding treatment decisions, as well as other required patient management activities. This time is exclusive of all separately billable procedures, and teaching time and separate from and in addition to any other critical care service time. Consults & Procedures Consultants: Pulmonology Data Medications: Current Inpatient Medications Medications (Trade) Dose Ordered Sig/Tyree Route Start Time Stop Time Status Last Admin Dose Admin Acetaminophen (Tylenol Tab) 650 mg Q4H PRN PO 12/07/17 23:30 01/06/18 23:29 Miscellaneous Information (Icu Protocol For Hyperglycemia) 1 ea PRN PRN N/A 12/07/17 23:30 12/09/17 23:29 Methylprednisolone Sodium Succinate 40 mg/Syringe 0.64 ml @ 1.5 mls/min Q8H IV 12/08/17 01:00 01/07/18 00:59 12/09/17 01:03 1.5 MLS/MIN Fentanyl Citrate 250 ml @ 0 mls/hr Q0M PRN IV 12/07/17 23:32 12/21/17 23:31 12/09/17 02:00 20 MLS/HR Midazolam HCl 250 ml @ 0 mls/hr Q0M PRN IV 12/07/17 23:32 01/06/18 23:31 12/07/17 23:54 10 MLS/HR Pantoprazole Sodium 40 mg/ Syringe 10 ml @ 5 mls/min Q24H IV 12/08/17 09:00 01/07/18 08:59 12/08/17 08:24 5 MLS/MIN Amlodipine Besylate (Norvasc Tab) 10 mg DAILY PO 12/08/17 09:00 01/07/18 08:59 12/08/17 08:28 10 MG Aspirin (Ecotrin Tab) 81 mg DAILY PO 12/08/17 09:00 01/07/18 08:59 12/08/17 08:26 81 MG Diltiazem HCl (Cardizem Tab) 60 mg TID PO 12/08/17 09:00 01/07/18 08:59 12/08/17 14:04 60 MG Furosemide (Lasix Tab) 20 mg DAILY PO 12/08/17 09:00 01/07/18 08:59 12/08/17 08:27 20 MG Metoprolol Succinate (Toprol Xl Tab) 100 mg QAM PO 12/08/17 09:00 01/07/18 08:59 12/08/17 08:30 100 MG Paroxetine HCl (pAXil TAB) 20 mg DAILY PO 12/08/17 09:00 01/07/18 08:59 12/08/17 08:30 20 MG Propofol (Diprivan Iv Emulsion 100ml Vial) 1 dose UD IV 12/08/17 01:07 12/11/17 01:06 12/09/17 04:44 1 DOSE Miscellaneous Information (Consult) 1 ea UD PRN N/A 12/08/17 01:30 01/07/18 01:29 Piperacillin Sod/ Tazobactam Sod 3.375 gm/Sodium Chloride 115 ml @ 28.75 mls/ hr Q8H IV 12/08/17 06:00 12/15/17 05:59 12/08/17 22:49 28.75 MLS/HR Artificial Tears (Lacri-Lube Oph Oint) 1 appln UD PRN OP 12/08/17 02:30 01/07/18 02:29 Albuterol (Ventolin Hfa Inhaler) 4 puffs Q4R INH 12/08/17 04:00 01/07/18 03:59 12/08/17 15:30 4 PUFFS Ipratropium [place] (Atrovent Hfa Inhaler) 4 puffs Q4R INH 12/08/17 04:00 01/07/18 03:59 12/08/17 15:30 4 PUFFS Multivitamins Therapeutic (Cerovite Liquid) 15 ml QAM PO 12/08/17 09:00 01/07/18 08:59 12/08/17 08:25 15 ML Thiamine HCl (Vitamin B-1 Tab) 100 mg QAM PO 12/08/17 09:00 01/07/18 08:59 12/08/17 08:31 100 MG Nicotine (Nicoderm Cq 14MG Patch) 1 patch QAM TD 12/08/17 09:00 01/07/18 08:59 12/08/17 08:31 1 PATCH Miscellaneous (Remove Nicoderm Patch) 1 ea HS N/A 12/08/17 21:00 01/07/18 20:59 12/08/17 21:16 1 EA Sodium Chloride 1,000 ml @ 75 mls/hr [id number] IV 12/08/17 11:45 01/07/18 11:44 12/08/17 14:03 75 MLS/HR Enoxaparin Sodium (Lovenox Inj) 40 mg QAM SQ 12/09/17 09:00 01/08/18 08:59 Doxycycline Hyclate 100 mg/ Dextrose 110 ml @ 50 mls/hr BID IV 12/08/17 12:30 12/15/17 12:29 12/08/17 21:16 50 MLS/HR Vital Signs: Date Time Temp Pulse Resp B/P (MAP) Pulse Ox O2 Delivery O2 Flow Rate FiO2 12/09/17 04:23 30 12/09/17 03:00 37.0 73 21 99/58 (72) Mechanical Ventilator 12/09/17 02:21 30 12/09/17 02:00 37.1 82 21 96/57 (70) 12/09/17 01:00 36.9 77 21 95/54 (68) 93 12/09/17 00:00 36.2 71 21 91/54 (66) Mechanical Ventilator 12/08/17 23:59 Mechanical Ventilator 30 12/08/17 23:59 30 12/08/17 23:41 30 12/08/17 23:00 35.5 68 21 95/58 (70) 12/08/17 22:00 34.9 58 21 107/64 (78) 12/08/17 21:01 34.7 56 21 105/61 (76) 97 12/08/17 20:30 34.6 56 21 93 35 12/08/17 20:01 49 21 110/66 (81) 99 Mechanical Ventilator 12/08/17 20:00 35 12/08/17 20:00 Mechanical Ventilator 35 12/08/17 19:45 30 12/08/17 19:01 49 21 105/65 (78) 97 Mechanical Ventilator 12/08/17 18:00 36.6 49 20 100/61 (74) 97 Mechanical Ventilator 35 12/08/17 17:33 30 12/08/17 16:00 95 Mechanical Ventilator 35 12/08/17 16:00 35 4/14/18 16:00 51 20 95/58 (70) 95 Mechanical Ventilator 35 12/08/17 14:30 30 12/08/17 14:00 77 20 114/67 (83) 95 Mechanical Ventilator 35 12/08/17 12:00 95 Mechanical Ventilator 35 12/08/17 12:00 63 21 108/73 (85) 95 Mechanical Ventilator 35 12/08/17 12:00 35 12/08/17 11:29 30 12/08/17 11:00 68 21 118/80 (93) 94 Mechanical Ventilator 35 12/08/17 10:00 75 20 115/78 (90) 97 Mechanical Ventilator 35 12/08/17 09:00 77 14 119/72 (88) 97 Mechanical Ventilator 35 12/08/17 08:00 35 12/08/17 08:00 95 Mechanical Ventilator 35 12/08/17 08:00 36.4 74 28 122/75 (91) 95 Mechanical Ventilator 35 12/08/17 07:35 35 12/08/17 07:00 36.6 79 21 110/69 (83) 99 12/08/17 06:00 79 21 110/69 (83) 99 12/08/17 06:00 79 21 110/69 (83) 99 12/08/17 05:49 40 12/08/17 05:00 82 21 110/67 (81) 99 12/08/17 05:00 82 21 110/67 (81) 99 Laboratory Results: Last 24 Hours Test 12/08/17 05:39 12/08/17 05:55 12/08/17 07:42 12/09/17 00:00 Blood Gas Sample Site R Radial Bedside Blood Gas pH (LAB) 7.49 Bedside Blood Gas pCO2 (LAB) 41 mmHg Bedside Blood Gas pO2 (LAB) 70 mmHg Bedside Blood Gas HCO3 (LAB) 31 meq/L Bedside Blood Gas Total CO2 32 mEq/l Bedside Blood Gas Base Excess (LAB) 8.0 meq/L Bedside Blood Gas O2 Saturation 95.0 % Carmelo Test Pass Oxygen Delivery Device Ventilator Bedside Oxygen Rate (breaths/min) 21 Blood Gas Minute Ventilation 11.1 Bedside FiO2 35 % Blood Gas Tidal Volume 550 Blood Gas PEEP 5 White Blood Count 4.61 K/uL Red Blood Count 4.18 M/uL Hemoglobin 10.1 g/dL Hematocrit 34.7 % Mean Corpuscular Volume 83.0 fL Mean Corpuscular Hemoglobin 24.2 pg Mean Corpuscular Hemoglobin Concent 29.1 g/dl Platelet Count 187 K/uL Mean Platelet Volume 8.2 fL Neutrophils (%) (Auto) 92.8 % Lymphocytes (%) (Auto) 3.5 % Monocytes (%) (Auto) 3.5 % Eosinophils (%) (Auto) 0.0 % Basophils (%) (Auto) 0.0 % Neutrophils # (Auto) 4.28 K/uL Lymphocytes # (Auto) 0.16 K/uL Monocytes # (Auto) 0.16 K/uL Eosinophils # (Auto) 0.00 K/uL Basophils # (Auto) 0.00 K/uL RDW Standard Deviation 67.7 fL RDW Coefficient of Variation 22.1 % Immature Granulocyte % (Auto) 0.2 % Immature Granulocyte # (Auto) 0.01 K/uL Hypochromasia PRESENT Anisocytosis PRESENT Sodium Level 131 mmol/L Potassium Level 4.8 mmol/L Chloride Level 96 mmol/L Carbon Dioxide Level 29 mmol/L Anion Gap 6.0 mmol/L Blood Urea Nitrogen 20 mg/dl Creatinine 0.93 mg/dl Est Creatinine Clear Calc Drug Dose 85.1 ml/min Estimated GFR () 100.2 Estimated GFR (Non- 86.5 BUN/Creatinine Ratio 21.4 Random Glucose 149 mg/dl Calcium Level 8.7 mg/dl Phosphorus Level 2.4 mg/dl Magnesium Level 2.5 mg/dl Osmolality 285 mOsm/kg Bedside Glucose 149 mg/dl Test 12/09/17 04:44 Resident Tracking Resident Involvement: Resident Care Provided Care Provided: Adult Hospital Medicine
[2017-12-09] MEDS: PIPERACILL/TAZOBAC IV 3.375 GM in NSS 100ML IV SCH ×3 (05:52→22:01)
[2017-12-09 06:22] LABS: HEMATOCRIT 32.7 % (42-52); IG# 0.02 K/uL (0.00-0.02); LYMPH % 4.6 %; LYMPH ABS # 0.33 K/uL (1.2-3.4); MEAN CELL VOLUME 80.9 fL (80-100); MEAN CORPUSCULAR HEMOGLOBIN 24.8 pg (25-34); MEAN CORPUSCULAR HGB CONC 30.6 g/dl (32-36); MEAN PLATELET VOLUME 9.1 fL (7.4-10.4); MONO % 5.2 %; MONO ABS # 0.37 K/uL (0.11-0.59); NEUT % 89.9 %; NEUT ABS # 6.42 K/uL (1.4-6.5); PLATELET COUNT 236 K/uL (130-400); RED CELL DISTRIBUTION WIDTH CV 22.4 % (11.5-14.5); RED CELL DISTRIBUTION WIDTH SD 66.8 fL (36.4-46.3); WHITE BLOOD COUNT 7.14 K/uL (4.8-10.8)
[2017-12-09 06:29] LABS: CALCIUM 8.4 mg/dl (8.5-10.1); CREATININE 1.65 mg/dl (0.60-1.40); POTASSIUM 4.6 mmol/L (3.5-5.1)
[2017-12-09 06:33] LABS: PHOSPHORUS 4.2 mg/dl (2.5-4.9)
--- NOTE | 2017-12-09 07:12 | DIAGNOSTIC IMAGING REPORT ---
CHEST ONE VIEW PORTABLE CLINICAL HISTORY: 62 years-old Male presenting with intubated, COPD exacerbation. TECHNIQUE: Portable upright AP view of the chest was obtained. COMPARISON: 12/08 2016. FINDINGS: Endotracheal tube terminates in the mid thoracic trachea 5 cm from the michael. Nasogastric tube poorly visualized but appears to extend below the diaphragm, terminus not visualized. Atherosclerosis of aortic arch. Cardiac silhouette normal in size. Lungs hyperinflated. Prominent lung markings with heterogeneity of lung parenchyma. No focal opacity. No large effusion or pneumothorax. IMPRESSION: 1. Appropriately positioned endotracheal tube. 2. Poorly visualized nasogastric tube, which appears to course below the diaphragm. 3. Hyperinflation could imply underlying emphysema. No focal infiltrate to suggest pneumonia. Electronically signed by: Zach Townsend M.D. 12/09/2017 7:11 AM Dictated Date/Time: 12/09/2017 7:09 AM
[2017-12-09] MEDS: ALBUTEROL HFA 8 GM INHALER INH SCH ×2 (07:31→12:00)
[2017-12-09] MEDS: IPRATROPIUM BROMIDE HFA INHALER INH SCH ×2 (07:31→12:00)
[2017-12-09] MEDS ORDERED: PROPOFOL IV EMULSION 10 MG/ML 100 ML VIAL IV PRN (08:45)
[2017-12-09] MEDS: PANTOprazole INJ 40 MG in SYRINGE 0 ML IV SCH (08:46)
[2017-12-09] MEDS: NORMOSOL R 1,000 ML IV SCH (08:46)
[2017-12-09] MEDS: NICOTINE 14 MG/24 HR TDSY TD SCH (08:48)
[2017-12-09] MEDS: HEPARIN SOD 5000 UNIT/0.5 ML CARP SQ SCH ×2 (08:48→21:17)
[2017-12-09] MEDS: DOXYCYCLINE IV 100 MG in DEXTROSE 5% 100ML 100 ML IV SCH ×2 (08:50→21:05)
[2017-12-09] MEDS: METOPROLOL SUCC 50MG EXT REL TAB PO SCH (09:00)
[2017-12-09] MEDS ORDERED: ENOXAPARIN 40 MG/0.4 ML SYR SQ SCH (09:00)
[2017-12-09] MEDS: THIAMINE HCL 100 MG TAB PO SCH (09:00)
[2017-12-09] MEDS: MULTIVITAMINS W/MINERALS 15ML UDP PO SCH (09:00)
[2017-12-09] MEDS: DILTIAZEM HCL 60 MG TAB PO SCH ×3 (09:00→21:06)
[2017-12-09] MEDS: FUROSEMIDE 20 MG TAB PO SCH (09:00)
[2017-12-09] MEDS: ASPIRIN 81 MG ECTAB PO SCH (09:00)
[2017-12-09] MEDS: PAROXETINE 20 MG TAB PO SCH (09:00)
[2017-12-09] MEDS: AMLODIPINE BESYLATE 5 MG TAB PO SCH (09:00)
[2017-12-09] MEDS ORDERED: PROPOFOL IV EMULSION 10 MG/ML 100 ML VIAL IV SCH (09:05)
[2017-12-09] MEDS: MoRPHine SULFATE 2 MG/ML CARP IV PRN ×2 (16:25→20:01)
--- NOTE | 2017-12-09 18:28 | Progress Note ---
Internal Med Progress Note Date of Service: Dec 09, 2017. Provider Documentation: SUBJECTIVE: s/p extubated today sats ok on nasal canula complains of pain all over somewhat drowsy Wanst to reintubated if required request for pain meds afebrile OBJECTIVE: Vital Signs-as noted below Exam: General-alert and awake. Not in acute distress Neck-No neck masses seen Lungs-CTA b/l tachypnea present no wheezing bibasilar crackles present Heart-S1 and S2 heard regular rhythm no murmurs Abdomen-soft Bowels sounds present no distension Extremities-mild pedal edema no erythema Neuro-alert and awake moves extremities Lab data as noted below. ASSESSMENT & PLAN: Acute on chronic Hypercapnic respiratory failure Metabolic Encephalopathy from above co2 retention Tox screen positive for Marijuana Most likely from : COPD exacerbation, Pulmonary HTN,and cor pulmonale s/p intubated Vent management per critical care on IV Solu-Medrol, Zosyn and doxy, nebs Flu negative Lung transplantation suggested by Prior de icer but patient refused as per records Palliative care consulted appreciate critical care and pulmonary inputs s/p extubation today critical care has long discussion about code status patient no CPR but wants to be reintubated if required appreciate critical care help continue to monitor Chronic diastolic heart failure: Secondary to pulmonary hypertension and cor pulmonale home diuretics on hold on gentle fluids will monitor GABY cr 1.6 from hypoxia diuretics on hold on fluids will monitor Hyponatremia on fluids f/u labs HTN: on diltiazem and metoprolol will monitor Tobacco use disorder Nicotine patch Anxiety/depression: Paxil Joyce's esophagus: PPI Alcohol use disorder: Thiamine, folic acid DVT Px: Lovenox DISPOSITION monitor in icu await palliative care consult Vital Signs: Date Time Temp Pulse Resp B/P (MAP) Pulse Ox O2 Delivery O2 Flow Rate FiO2 12/09/17 16:00 95 Nasal Cannula 4.0 12/09/17 16:00 95 Nasal Cannula 4.0 12/09/17 16:00 112 16 179/91 (120) 91 Nasal Cannula 4.0 12/09/17 16:00 95 Nasal Cannula 4.0 12/09/17 14:00 100 26 156/85 (108) 94 Nasal Cannula 4.0 12/09/17 12:00 95 Nasal Cannula 4.0 12/09/17 11:03 99 30 89 Diffusion Mask 8.0 12/09/17 11:00 100 22 136/73 (94) 99 Nasal Cannula 4.0 12/09/17 09:00 93 26 129/82 (98) 92 Nasal Cannula 4.0 12/09/17 08:00 36.6 94 20 110/64 (79) 91 Oxymask 4.0 12/09/17 08:00 90 Nasal Cannula 4.0 12/09/17 07:32 30 12/09/17 06:00 37.0 80 21 106/63 (77) 94 12/09/17 05:01 37.2 87 21 99/60 (73) 93 12/09/17 04:23 30 12/09/17 04:00 30 12/09/17 04:00 Mechanical Ventilator 30 12/09/17 04:00 37.0 74 21 106/61 (76) 94 12/09/17 03:00 37.0 73 21 99/58 (72) Mechanical Ventilator 12/09/17 02:21 30 12/09/17 02:00 37.1 82 21 96/57 (70) 12/09/17 01:00 36.9 77 21 95/54 (68) 93 12/09/17 00:00 36.2 71 21 91/54 (66) Mechanical Ventilator 12/08/17 23:59 Mechanical Ventilator 30 12/08/17 23:59 30 12/08/17 23:41 30 12/08/17 23:00 35.5 68 21 95/58 (70) 12/08/17 22:00 34.9 58 21 107/64 (78) 12/08/17 21:01 34.7 56 21 105/61 (76) 97 12/08/17 20:30 34.6 56 21 93 35 12/08/17 20:01 49 21 110/66 (81) 99 Mechanical Ventilator 12/08/17 20:00 35 12/08/17 20:00 Mechanical Ventilator 35 12/08/17 19:45 30 Lab Results: Results Past 24 Hours Test 12/09/17 00:00 12/09/17 05:45 12/09/17 05:47 Range/Units Bedside Glucose 149 133 70-99 mg/dl White Blood Count 7.14 4.8-10.8 K/uL Red Blood Count 4.04 4.7-6.1 M/uL Hemoglobin 10.0 14.0-18.0 g/dL Hematocrit 32.7 42-52 % Mean Corpuscular Volume 80.9 80-100 fL Mean Corpuscular Hemoglobin 24.8 25-34 pg Mean Corpuscular Hemoglobin Concent 30.6 32-36 g/dl Platelet Count 236 130-400 K/uL Mean Platelet Volume 9.1 7.4-10.4 fL Neutrophils (%) (Auto) 89.9 % Lymphocytes (%) (Auto) 4.6 % Monocytes (%) (Auto) 5.2 % Eosinophils (%) (Auto) 0.0 % Basophils (%) (Auto) 0.0 % Neutrophils # (Auto) 6.42 1.4-6.5 K/uL Lymphocytes # (Auto) 0.33 1.2-3.4 K/uL Monocytes # (Auto) 0.37 0.11-0.59 K/uL Eosinophils # (Auto) 0.00 0-0.5 K/uL Basophils # (Auto) 0.00 0-0.2 K/uL RDW Standard Deviation 66.8 36.4-46.3 fL RDW Coefficient of Variation 22.4 11.5-14.5 % Immature Granulocyte % (Auto) 0.3 % Immature Granulocyte # (Auto) 0.02 0.00-0.02 K/uL Hypochromasia PRESENT Anisocytosis PRESENT Venous Blood pH 7.43 7.36-7.41 Venous Blood Partial Pressure CO2 47 38.0-50.0 mmHg Venous Blood Partial Pressure O2 62 mmHg Venous Blood HCO3 31 mmol/L Venous Blood Oxygen Saturation 88.8 % Venous Blood Base Excess 5.5 mEq/L Sodium Level 133 136-145 mmol/L Potassium Level 4.6 3.5-5.1 mmol/L Chloride Level 97 98-107 mmol/L Carbon Dioxide Level 30 21-32 mmol/L Anion Gap 6.0 3-11 mmol/L Blood Urea Nitrogen 31 7-18 mg/dl Creatinine 1.65 0.60-1.40 mg/dl Est Creatinine Clear Calc Drug Dose 48.4 ml/min Estimated GFR () 50.1 Estimated GFR (Non- 43.2 BUN/Creatinine Ratio 18.8 10-20 Random Glucose 124 70-99 mg/dl Calcium Level 8.4 8.5-10.1 mg/dl Phosphorus Level 4.2 2.5-4.9 mg/dl Magnesium Level 2.3 1.8-2.4 mg/dl
--- NOTE | 2017-12-09 19:57 | Critical Care Progress Note ---
Critical Care Progress Note Date of Service Dec 09, 2017. Critical Care Progress Note Subjective Patient complains of left upper extremity numbness and weakness and pain Onset unclear Objective Decreased strength and sensation of left upper extremity when compared to right Assessment Paresthesias left upper extremity Weakness left upper extremity Plan: CT head without contrast rule out CVA Possible MRI Additionally I had another discussion with the patient in the presence of his sister, Jing Casper, regarding CODE STATUS and goals of care. Patient's goals are to recover to be discharged home to finalize several personal affairs he has as well as several recording sessions he has planned. Patient understands that should he have a repeat COPD exacerbation and require mechanical ventilation and intubation if they are not supplied he will pass away. Patient also understands that he is an end-stage condition with regards to the COPD. Should he have a respiratory arrest or respiratory insufficiency leading to the need for intubation and mechanical ventilation he would opt for comfort measures and does not want resuscitation nor intubation in event of cardiac or respiratory arrest. I have personally spent 35 minutes of critical care time in the direct management of this patient. This is a life/limb threatening event. This includes time spent evaluating patient, direct bedside care, chart review, placing orders, interpretation of diagnostic studies, discussion with consultants, patient, and/or family members regarding treatment decisions, as well as other required patient management activities. This time is exclusive of all separately billable procedures, and teaching time and separate from and in addition to any other critical care service time.
--- NOTE | 2017-12-09 19:58 | Critical Care Progress Note ---
Critical Care Progress Note Date of Service Dec 09, 2017. Critical Care Progress Note Iron Cruz is a 62yo male who was successfully extubated today. While extubated there was concern for Mr. Reid's final wishes. Upon examination today I spoke with Iron about his code status once alone and a second time in the presence of Dr. Zion Erwin and pts sister, Jing Casper. During both conversations Iron was alert and oriented to his situation. He was able to tell me about his poor prognosis in regards to his cardiac and lung function. He admitted that he has been preparing for prior to this episode. Pt states he does not wish to go through this discomfort again. Should he lung function decline or respiratory arrest was to occur pt wishes to be kept comfortable. Pt will be followed by palliative care. His sisters agrees with pts decision. Pt is a DNR/DNI at this point. In addition, pt is found to have a swollen and warn left hand into forearm. He is complaining of pain and numbness. I have directed nursing to remove the pts left hand IV and apply cool packs for the swelling. Pt was complaining of generalized pain as well and will be provided additional pain medication. In the setting of recent hypoxia, pt will taken for head CT for concern of possible brain ischemia during this pulmonary event. Additional Critical Care Time: 30 minutes Not including any billable procedures. Thank you for including us in the care of this patient. Please review Dr. Zion Erwin''s addendum for further recommendations.
[2017-12-09] MEDS: ALBUT/IPRATROP 3MG/0.5MG NEB 3 ML VIAL INH SCH ×2 (20:00→23:18)
[2017-12-09] MEDS: OXYCODONE/ACETAMINOPHEN 10/325MG TAB PO PRN (20:01)
--- NOTE | 2017-12-09 20:38 | DIAGNOSTIC IMAGING REPORT ---
HEAD WITHOUT CONTRAST (CT) CLINICAL HISTORY: 62 years-old Male presenting with left hand/arm numbness . TECHNIQUE: Multidetector CT imaging of the head was performed without the use of intravenous contrast. IV contrast: None. A dose lowering technique was used consistent with the principles of ALARA (as low as reasonably achievable). COMPARISON: 05/29/2017. CT DOSE (mGy.cm): The estimated cumulative dose is 1572.52 mGy.cm. FINDINGS: Healthcare Account Manager topogram: Unremarkable. Proportional ventricular and sulcal prominence, likely age-related parenchymal volume loss. Subtle hypoattenuation of the cristobal matter at the right frontal vertex (series 2 images 21 and 22). No mass effect or midline shift. No hemorrhage. No extra-axial fluid collection. Paranasal sinuses and mastoid air cells clear. Calvarium intact. IMPRESSION: 1. Subtle hypoattenuation of the cristobal matter at the right frontal vertex, concerning for acute ischemia. Further evaluation with noncontrast MRI of the brain to be considered for confirmation. No hemorrhage. The report will be called/faxed according to standard departmental protocol. Electronically signed by: Zach Townsend M.D. 12/09/2017 8:36 PM Dictated Date/Time: 12/09/2017 8:32 PM
[2017-12-09] MEDS ORDERED: ASPIRIN 325 MG ECTAB PO ONE (22:29)
[2017-12-10] VITALS (38 sets, daily range): BP systolic 134–180; BP diastolic 77–89; PULSE 63–122; TEMP 36.5–37.1; O2SAT 78–94
[2017-12-10] MEDS: MoRPHine SULFATE 2 MG/ML CARP IV PRN ×2 (01:24→05:56)
[2017-12-10] MEDS: NORMOSOL R 1,000 ML IV SCH ×2 (01:25→11:37)
[2017-12-10] MEDS: METHYLPREDNISOLONE IV 40 MG in SYRINGE 0 ML IV SCH ×4 (01:25→20:06)
[2017-12-10] MEDS: ALBUT/IPRATROP 3MG/0.5MG NEB 3 ML VIAL INH SCH ×6 (04:09→23:23)
[2017-12-10] MEDS: PIPERACILL/TAZOBAC IV 3.375 GM in NSS 100ML IV SCH (05:53)
[2017-12-10] MEDS: OXYCODONE/ACETAMINOPHEN 10/325MG TAB PO PRN ×3 (05:55→22:19)
[2017-12-10 06:28] LABS: CALCIUM 8.6 mg/dl (8.5-10.1); CREATININE 1.31 mg/dl (0.60-1.40)
[2017-12-10 06:29] LABS: PHOSPHORUS 4.4 mg/dl (2.5-4.9)
[2017-12-10 06:36] LABS: HEMATOCRIT 34.9 % (42-52); HEMOGLOBIN 10.2 g/dL (14.0-18.0); MEAN CELL VOLUME 84.5 fL (80-100); MEAN CORPUSCULAR HEMOGLOBIN 24.7 pg (25-34); MEAN CORPUSCULAR HGB CONC 29.2 g/dl (32-36); MEAN PLATELET VOLUME 8.5 fL (7.4-10.4); PLATELET COUNT 306 K/uL (130-400); RED CELL DISTRIBUTION WIDTH CV 22.6 % (11.5-14.5); RED CELL DISTRIBUTION WIDTH SD 69.8 fL (36.4-46.3); WHITE BLOOD COUNT 9.11 K/uL (4.8-10.8)
[2017-12-10] MEDS: ASPIRIN 325 MG ECTAB PO SCH (08:15)
[2017-12-10] MEDS: PAROXETINE 20 MG TAB PO SCH (08:15)
[2017-12-10] MEDS: DILTIAZEM HCL 60 MG TAB PO SCH ×3 (08:15→20:01)
[2017-12-10] MEDS: THIAMINE HCL 100 MG TAB PO SCH (08:16)
[2017-12-10] MEDS: METOPROLOL SUCC 50MG EXT REL TAB PO SCH (08:16)
[2017-12-10] MEDS: ASPIRIN 81 MG ECTAB PO SCH (08:16)
[2017-12-10] MEDS: AMLODIPINE BESYLATE 5 MG TAB PO SCH (08:16)
[2017-12-10] MEDS: PANTOprazole INJ 40 MG in SYRINGE 0 ML IV SCH (08:18)
[2017-12-10] MEDS: HEPARIN SOD 5000 UNIT/0.5 ML CARP SQ SCH ×2 (08:18→20:04)
[2017-12-10] MEDS: NICOTINE 14 MG/24 HR TDSY TD SCH (08:47)
[2017-12-10] MEDS: MULTIVITAMINS W/MINERALS 15ML UDP PO SCH (08:47)
[2017-12-10] MEDS: HYDROmorphone INJ 0.5 MG/0.5 ML SYR IV PRN ×3 (12:28→23:53)
--- NOTE | 2017-12-10 13:17 | Critical Care Progress Note ---
Critical Care Progress Note Date of Service Dec 10, 2017. Attending Dr. Pastora Randall The patient remains extubated in the past 24 hours, the patient was intubated due to acute hypoxic respiratory failure. Patient is known to have history of COPD. He is on home oxygen. During this hospitalization, it appeared to have developed frontal CVA which appeared to be small, the patient was concerned about the swelling of his left upper extremity which is likely related to IV axis. The patient appeared to be very anxious and not well coordinated in his thoughts. No events occurred overnight, he maintain his O2 sat only on nasal cannula oxygen. Objective GENERAL: Intubated, sedated HENT: Normocephalic, atraumatic. NECK: Supple. FROM. No JVD. RESPIRATORY: Clear to auscultation. ET tube #7.5 AC 20/36/550/5 CARDIAC: Regular rate, normal rhythm. Extremities warm and well perfused. Pulses equal. ABDOMEN: Soft, non-distended. No tenderness to palpation. No rebound or guarding. No masses. LOWER EXTREMITIES: Calves are equal size bilaterally and non-tender. No edema. No discoloration. NEURO: CAM +, RASS -3 SKIN: Multiple tattoos. Physical exam on 12/10/2017, the patient was very apprehended and anxious, however he is answering questions and following commands fairly reasonably, vital signs remained stable, S1-S2 regular rate and rhythm, distant wheezing bilaterally, abdomen is benign no edema except for the left upper extremity. No neurologic deficits except for the confusion. I have reviewed his data from before which includes echocardiogram revealing EF of 55%. The patient TAPSE more than 1.5. Chest x-ray revealed hyperinflated lungs, and a CAT scan of the chest revealed dilated pulmonary artery and severe emphysematous changes. Assessment & Plan 1. COPD, gold level 3, grade C, most recent FEV1 was 44%. 2. Pulmonary hypertension, appeared to be moderate with less effect on his respiratory status. 3. Severe anxiety, I am not sure if it has affected also by his outpatient use of opiates as well as being positive for marijuana in the urine tox which could represent the use of marijuana as an outpatient as well. 4. Acute on chronic hypoxic respiratory failure. 5. Severe deconditioning. 6. Frontal CVA, currently on aspirin high dose. Plan: 1. I will continue with the steroids and continue Solu-Medrol 40 mg IV every 6 hours. 2. Continue with bronchodilators on scheduled basis. 3. Continue with aspirin. 4. Physical therapy to start mobilizing the patient. 5. DVT prophylaxis. 6. If the swelling in the left upper extremity remains, I would image his left upper extremity to evaluate for DVT. 7. The patient has high tolerance of pain and he has been on Dilaudid, I will start him with a dose of 0.5 mg. 8. Stop morphine sulfate. 9. Long Discussion Took Pl. with him and his sister at the bedside as well as his nephew. All their questions been answered. The patient has misperception about his own disease. Although he does have severe COPD but he still have FEV1 of 43%. The patient did not have PA catheter done on him to evaluate accurately for his pulmonary artery pressure. He has been scheduled in [place] for lung transplant but he did not show up due to generalized pain and he felt he does not want to go through with his father gone through after his father 5 days after a cardiac bypass. The patient continues to smoke cigarettes and a cigarette smoke was 2 weeks ago. He appeared to have very minimal support socially however his sister has been looking up for him. His children has been estranged from him. The discussion took place to decide on his CODE STATUS and his future intubation if needed, he will discuss that issue with his sister and he will get back to me. 10. I do believe that the patient is typical gold 3 COPD patient, who will need significant support as well as pulmonary rehab. Treatment should continue at this point. Appreciate palliative care being on board as well. However terms of his CODE STATUS, I will give him the choice as he is becoming more clear in his mind especially with the presence of his sister to determine that. The DNR status still undetermined by the patient himself. Case discussed with the staff on rounds and details, critical care time spent with the patient including family discussion was 45 minutes. Consults & Procedures Consultants: Pulmonology Data Medications: Current Inpatient Medications Medications (Trade) Dose Ordered Sig/Tyree Route Start Time Stop Time Status Last Admin Dose Admin Acetaminophen (Tylenol Tab) 650 mg Q4H PRN PO 12/07/17 23:30 01/06/18 23:29 Pantoprazole Sodium 40 mg/ Syringe 10 ml @ 5 mls/min Q24H IV 12/08/17 09:00 01/07/18 08:59 12/10/17 08:18 5 MLS/MIN Amlodipine Besylate (Norvasc Tab) 10 mg DAILY PO 12/08/17 09:00 01/07/18 08:59 12/10/17 08:16 10 MG Diltiazem HCl (Cardizem Tab) 60 mg TID PO 12/08/17 09:00 01/07/18 08:59 12/10/17 08:15 60 MG Metoprolol Succinate (Toprol Xl Tab) 100 mg QAM PO 12/08/17 09:00 01/07/18 08:59 12/10/17 08:16 100 MG Paroxetine HCl (pAXil TAB) 20 mg DAILY PO 12/08/17 09:00 01/07/18 08:59 12/10/17 08:15 20 MG Artificial Tears (Lacri-Lube Oph Oint) 1 appln UD PRN OP 12/08/17 02:30 01/07/18 02:29 Multivitamins Therapeutic (Cerovite Liquid) 15 ml QAM PO 12/08/17 09:00 01/07/18 08:59 12/08/17 08:25 15 ML Thiamine HCl (Vitamin B-1 Tab) 100 mg QAM PO 12/08/17 09:00 01/07/18 08:59 12/10/17 08:16 100 MG Nicotine (Nicoderm Cq 14MG Patch) 1 patch QAM TD 12/08/17 09:00 01/07/18 08:59 12/09/17 08:48 1 PATCH Miscellaneous (Remove Nicoderm Patch) 1 ea HS N/A 12/08/17 21:00 01/07/18 20:59 12/10/17 02:02 1 EA Parenteral Electrolyte Solution 1,000 ml @ 75 mls/hr [id number] IV 12/09/17 08:00 01/08/18 07:59 12/10/17 11:37 75 MLS/HR Heparin Sodium (Porcine) (Heparin Sq 5000 Unit/0.5ml) 5,000 unit Q12 SQ 12/09/17 09:00 01/08/18 08:59 12/10/17 08:18 5,000 UNIT Oxycodone/ Acetaminophen (Percocet 10-325MG Tab) 1 tab Q6H PRN PO 12/09/17 14:15 12/23/17 14:14 12/10/17 05:55 1 TAB Morphine Sulfate (MoRPHine SULFATE INJ) 2 mg Q4H PRN IV 12/09/17 14:15 12/23/17 14:14 Future Hold 12/10/17 05:56 2 MG Albuterol/ Ipratropium (Duoneb) 3 ml Q4R INH 12/09/17 20:00 01/08/18 19:59 12/10/17 11:18 3 ML Aspirin (Ecotrin Tab) 325 mg QAM PO 12/10/17 09:00 01/09/18 08:59 12/10/17 08:15 325 MG Methylprednisolone Sodium Succinate 40 mg/Syringe 0.64 ml @ 1.5 mls/min Q6H IV 12/10/17 14:00 01/09/18 13:59 Hydromorphone HCl (Dilaudid Inj) 0.5 mg Q6 PRN IV 12/10/17 12:00 12/24/17 11:59 12/10/17 12:28 0.5 MG Vital Signs: Date Time Temp Pulse Resp B/P (MAP) Pulse Ox O2 Delivery O2 Flow Rate FiO2 12/10/17 12:01 96 171/85 (113) 89 12/10/17 12:00 96 86 12/10/17 11:23 Nasal Cannula 4.0 12/10/17 11:23 36.9 89 22 157/77 (103) 90 Nasal Cannula 4.0 12/10/17 11:22 87 20 92 Nasal Cannula 4.0 12/10/17 11:01 82 157/77 (103) 92 12/10/17 11:00 81 12/10/17 10:00 76 86 12/10/17 09:01 91 156/79 (104) 88 12/10/17 09:00 91 12/10/17 08:02 108 162/84 (110) 87 12/10/17 08:00 122 84 12/10/17 07:31 88 20 88 Nasal Cannula 4.0 12/10/17 07:30 Nasal Cannula 4.0 30 12/10/17 07:30 36.8 88 20 161/82 (108) 90 Nasal Cannula 4.0 12/10/17 07:01 90 161/82 (108) 89 12/10/17 07:00 85 12/10/17 06:00 99 91 12/10/17 05:01 97 166/87 (113) 87 12/10/17 05:00 101 91 12/10/17 04:31 93 Nasal Cannula 4.0 12/10/17 04:09 83 16 93 Nasal Cannula 4.0 12/10/17 04:01 36.5 87 166/80 (108) 92 Nasal Cannula 4.0 12/10/17 04:00 85 12/10/17 03:01 63 180/89 (119) 84 12/10/17 03:00 101 78 12/10/17 02:03 91 146/78 (100) 90 12/10/17 02:02 91 152/77 (102) 90 12/10/17 02:00 66 87 12/10/17 01:01 93 134/79 (97) 86 12/10/17 01:00 90 88 Nasal Cannula 12/10/17 00:32 93 Nasal Cannula 4.0 12/10/17 00:01 36.5 99 151/80 (103) 88 Nasal Cannula 4.0 12/10/17 00:00 95 87 12/09/17 23:18 93 20 91 Nasal Cannula 4.0 12/09/17 22:04 118 164/89 (114) 12/09/17 22:00 117 12/09/17 21:01 119 162/84 (110) 83 12/09/17 21:00 118 81 12/09/17 20:01 113 161/81 (107) 92 12/09/17 20:00 93 Nasal Cannula 4.0 12/09/17 20:00 95 24 93 Nasal Cannula 4.0 12/09/17 20:00 114 93 12/09/17 19:01 36.5 104 145/75 (98) 95 Nasal Cannula 4.0 12/09/17 19:00 105 95 4.0 12/09/17 16:00 95 Nasal Cannula 4.0 12/09/17 16:00 95 Nasal Cannula 4.0 18 16:00 112 16 179/91 (120) 91 Nasal Cannula 4.0 12/09/17 16:00 95 Nasal Cannula 4.0 12/09/17 14:00 100 26 156/85 (108) 94 Nasal Cannula 4.0 Laboratory Results: Last 24 Hours Test 12/10/17 05:44 White Blood Count 9.11 K/uL Red Blood Count 4.13 M/uL Hemoglobin 10.2 g/dL Hematocrit 34.9 % Mean Corpuscular Volume 84.5 fL Mean Corpuscular Hemoglobin 24.7 pg Mean Corpuscular Hemoglobin Concent 29.2 g/dl RDW Standard Deviation 69.8 fL RDW Coefficient of Variation 22.6 % Platelet Count 306 K/uL Mean Platelet Volume 8.5 fL Sodium Level 135 mmol/L Potassium Level 4.0 mmol/L Chloride Level 99 mmol/L Carbon Dioxide Level 30 mmol/L Anion Gap 6.0 mmol/L Blood Urea Nitrogen 29 mg/dl Creatinine 1.31 mg/dl Est Creatinine Clear Calc Drug Dose 60.9 ml/min Estimated GFR () 66.2 Estimated GFR (Non- 57.1 BUN/Creatinine Ratio 22.5 Random Glucose 126 mg/dl Calcium Level 8.6 mg/dl Phosphorus Level 4.4 mg/dl Magnesium Level 2.3 mg/dl
--- NOTE | 2017-12-10 13:31 | Palliative Care Consultation ---
Consultation Date of Consultation: Dec 10, 2017. Requesting Physician: Dr. Arevalo Attending Physician: Dr. Abernathy Reason for Consultation: Goals of Care History of Present Illness Patient is a 62-year-old male with a PMH that includes advanced COPD, pHTN, diastolic heart failure, anxiety, depression, and Joyce's esophagus who was recently intubated and extubated post a COPD exacerbation. Patient has low lung reserve, but appears to have hurdled this exacerbation - Upon extubation, he is on 4LNC with SPO2 85-90%. Patient wears 2.5LNC at home at night - he states he has not had to increase the amount to date. Patient stated that he lives in a air stream trailer that has a bathroom with a shower and hot water. Myself, the patient, his sister Jing and friend, Timothy discussed his goals of care. He understands that he has COPD and each exacerbation can be addressed individually , but has stressed that he does not want to be intubated again. He expressed understanding what that means and would like to be DNR/DNI. We discussed that he would like to return to his home with hospice support if able. A POLST form was signed and placed on the chart. Patient currently has an estranged son for which legally is his next of kin as he does not have an advanced directive in place. He has expressed wanting to appoint his sister as his medical and financial decision maker. Social History Smoking Status: Former Smoker (Last cigarette 1.5 weeks ago) History of Alcohol Use: No (rarely ) Marital Status: single Housing Status: lives alone (Pt lives alone, but has a sister down the street and a close friend who lives on the same land) Occupation Status: employed Review of Systems Pt denies CP, dizziness, headache, palpitations, swelling, abdominal pain, dysphagia, new rashes, mood disturbances. Allergies Coded Allergies: Shellfish (Verified Allergy, Severe, SOB & SWOLLEN GLANDS FROM SHELLFISH, 10/03/17) Onion (Verified Allergy, Unknown, RASH AND GI UPSET, 10/03/17) Captopril (Verified Adverse Reaction, Intermediate, "felt bad", 10/03/17) Codeine (Verified Adverse Reaction, Unknown, nausea; nightmares, 10/03/17) Medications Current Inpatient Medications Medications (Trade) Dose Ordered Sig/Tyree Route Start Time Stop Time Status Last Admin Dose Admin Acetaminophen (Tylenol Tab) 650 mg Q4H PRN PO 12/07/17 23:30 01/06/18 23:29 Pantoprazole Sodium 40 mg/ Syringe 10 ml @ 5 mls/min Q24H IV 12/08/17 09:00 01/07/18 08:59 12/10/17 08:18 5 MLS/MIN Amlodipine Besylate (Norvasc Tab) 10 mg DAILY PO 12/08/17 09:00 01/07/18 08:59 12/10/17 08:16 10 MG Diltiazem HCl (Cardizem Tab) 60 mg TID PO 12/08/17 09:00 01/07/18 08:59 12/10/17 08:15 60 MG Metoprolol Succinate (Toprol Xl Tab) 100 mg QAM PO 12/08/17 09:00 01/07/18 08:59 12/10/17 08:16 100 MG Paroxetine HCl (pAXil TAB) 20 mg DAILY PO 12/08/17 09:00 01/07/18 08:59 12/10/17 08:15 20 MG Artificial Tears (Lacri-Lube Oph Oint) 1 appln UD PRN OP 12/08/17 02:30 01/07/18 02:29 Multivitamins Therapeutic (Cerovite Liquid) 15 ml QAM PO 12/08/17 09:00 01/07/18 08:59 12/08/17 08:25 15 ML Thiamine HCl (Vitamin B-1 Tab) 100 mg QAM PO 12/08/17 09:00 01/07/18 08:59 12/10/17 08:16 100 MG Nicotine (Nicoderm Cq 14MG Patch) 1 patch QAM TD 12/08/17 09:00 01/07/18 08:59 12/09/17 08:48 1 PATCH Miscellaneous (Remove Nicoderm Patch) 1 ea HS N/A 12/08/17 21:00 01/07/18 20:59 12/10/17 02:02 1 EA Parenteral Electrolyte Solution 1,000 ml @ 75 mls/hr [id number] IV 12/09/17 08:00 01/08/18 07:59 12/10/17 11:37 75 MLS/HR Heparin Sodium (Porcine) (Heparin Sq 5000 Unit/0.5ml) 5,000 unit Q12 SQ 12/09/17 09:00 01/08/18 08:59 12/10/17 08:18 5,000 UNIT Oxycodone/ Acetaminophen (Percocet 10-325MG Tab) 1 tab Q6H PRN PO 12/09/17 14:15 12/23/17 14:14 12/10/17 05:55 1 TAB Morphine Sulfate (MoRPHine SULFATE INJ) 2 mg Q4H PRN IV 12/09/17 14:15 12/23/17 14:14 Future Hold 12/10/17 05:56 2 MG Albuterol/ Ipratropium (Duoneb) 3 ml Q4R INH 12/09/17 20:00 01/08/18 19:59 12/10/17 11:18 3 ML Aspirin (Ecotrin Tab) 325 mg QAM PO 12/10/17 09:00 01/09/18 08:59 12/10/17 08:15 325 MG Methylprednisolone Sodium Succinate 40 mg/Syringe 0.64 ml @ 1.5 mls/min Q6H IV 12/10/17 14:00 01/09/18 13:59 Hydromorphone HCl (Dilaudid Inj) 0.5 mg Q6 PRN IV 12/10/17 12:00 12/24/17 11:59 12/10/17 12:28 0.5 MG Physical Exam Date Time Temp Pulse Resp B/P (MAP) Pulse Ox O2 Delivery O2 Flow Rate FiO2 12/10/17 12:01 96 171/85 (113) 89 12/10/17 12:00 96 86 12/10/17 11:23 Nasal Cannula 4.0 12/10/17 11:23 36.9 89 22 157/77 (103) 90 Nasal Cannula 4.0 12/10/17 11:22 87 20 92 Nasal Cannula 4.0 12/10/17 11:01 82 157/77 (103) 92 12/10/17 11:00 81 12/10/17 10:00 76 86 12/10/17 09:01 91 156/79 (104) 88 12/10/17 09:00 91 12/10/17 08:02 108 162/84 (110) 87 12/10/17 08:00 122 84 12/10/17 07:31 88 20 88 Nasal Cannula 4.0 12/10/17 07:30 Nasal Cannula 4.0 30 12/10/17 07:30 36.8 88 20 161/82 (108) 90 Nasal Cannula 4.0 12/10/17 07:01 90 161/82 (108) 89 12/10/17 07:00 85 12/10/17 06:00 99 91 12/10/17 05:01 97 166/87 (113) 87 12/10/17 05:00 101 91 12/10/17 04:31 93 Nasal Cannula 4.0 12/10/17 04:09 83 16 93 Nasal Cannula 4.0 12/10/17 04:01 36.5 87 166/80 (108) 92 Nasal Cannula 4.0 12/10/17 04:00 85 12/10/17 03:01 63 180/89 (119) 84 12/10/17 03:00 101 78 12/10/17 02:03 91 146/78 (100) 90 12/10/17 02:02 91 152/77 (102) 90 12/10/17 02:00 66 87 12/10/17 01:01 93 134/79 (97) 86 12/10/17 01:00 90 88 Nasal Cannula 12/10/17 00:32 93 Nasal Cannula 4.0 12/10/17 00:01 36.5 99 151/80 (103) 88 Nasal Cannula 4.0 12/10/17 00:00 95 87 12/09/17 23:18 93 20 91 Nasal Cannula 4.0 12/09/17 22:04 118 164/89 (114) 12/09/17 22:00 117 12/09/17 21:01 119 162/84 (110) 83 12/09/17 21:00 118 81 12/09/17 20:01 113 161/81 (107) 92 12/09/17 20:00 93 Nasal Cannula 4.0 12/09/17 20:00 95 24 93 Nasal Cannula 4.0 12/09/17 20:00 114 93 12/09/17 19:01 36.5 104 145/75 (98) 95 Nasal Cannula 4.0 12/09/17 19:00 105 95 4.0 12/09/17 16:00 95 Nasal Cannula 4.0 12/09/17 16:00 95 Nasal Cannula 4.0 12/09/17 16:00 112 16 179/91 (120) 91 Nasal Cannula 4.0 12/09/17 16:00 95 Nasal Cannula 4.0 12/09/17 14:00 100 26 156/85 (108) 94 Nasal Cannula 4.0 General Appearance: + mild distress (breathing labored with breaths and eating) Neck: no JVD Respiratory: + accessory muscle use, + wheezing Cardiovascular: regular rate, rhythm, no edema, no murmur Abdomen: normal bowel sounds, non tender, soft Musculoskeletal: normal Neurologic/Psychiatric: oriented x 3 Skin: warm/dry Laboratory Results Last 24 Hours Test 12/10/17 05:44 White Blood Count 9.11 K/uL Red Blood Count 4.13 M/uL Hemoglobin 10.2 g/dL Hematocrit 34.9 % Mean Corpuscular Volume 84.5 fL Mean Corpuscular Hemoglobin 24.7 pg Mean Corpuscular Hemoglobin Concent 29.2 g/dl RDW Standard Deviation 69.8 fL RDW Coefficient of Variation 22.6 % Platelet Count 306 K/uL Mean Platelet Volume 8.5 fL Sodium Level 135 mmol/L Potassium Level 4.0 mmol/L Chloride Level 99 mmol/L Carbon Dioxide Level 30 mmol/L Anion Gap 6.0 mmol/L Blood Urea Nitrogen 29 mg/dl Creatinine 1.31 mg/dl Est Creatinine Clear Calc Drug Dose 60.9 ml/min Estimated GFR () 66.2 Estimated GFR (Non- 57.1 BUN/Creatinine Ratio 22.5 Random Glucose 126 mg/dl Calcium Level 8.6 mg/dl Phosphorus Level 4.4 mg/dl Magnesium Level 2.3 mg/dl Assessment & Plan Palliative Performance Scale: 60 % Palliative Care Encounter Goals of Care COPD Hypercapnic Respiratory Failure Palliative Care Recommendations: -Pt to continue with current medications for COPD exacerbation -Suggest patient brand representative contact patient for discussion regarding advanced directive and medical/financial POA -POLST form completed and placed on chart -Continue supportive measures and case management to work towards discharge planning and hospice benefit application Thank you kindly for this consult. We will follow throughout his hospitalization. Counseling and Coordination Total time spent 100 minutes with > 50% of that time discussing goals of care with patient and his sister, along with discussing discharge planning and symptom management
--- NOTE | 2017-12-10 18:51 | Progress Note ---
Internal Med Progress Note Date of Service: Dec 10, 2017. Provider Documentation: SUBJECTIVE: s/p extubated yesterday sats ok on nasal canula complains of chronic pain alert and awake DNR now sister in room hemodynamics stable no other complaints thah the chronic pain OBJECTIVE: Vital Signs-as noted below Exam: General-alert and awake. Not in acute distress Neck-No neck masses seen Lungs-CTA b/l mild b/l rhonchi present Heart-S1 and S2 heard regular rhythm no murmurs Abdomen-soft Bowels sounds present no distension Extremities-mild pedal edema no erythema Neuro-alert and awake moves extremities Lab data as noted below. ASSESSMENT & PLAN: 62M WITH HX OF COPD SEVERE, PUL.HTN AND COR PULMONALE PRESENTED WITH ACUTE RESP FAILURE AND WAS INTUBATED. CURRENTLY S/P EXTUBATION. DNR. 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 appreciate palliative care and critical care help to continue current meds Chronic diastolic heart failure: Secondary to pulmonary hypertension and cor pulmonale home diuretics on hold on gentle fluids will stop them in am will monitor GABY cr 1.6 12/09/17 from hypoxia diuretics on hold on fluids resolved Hyponatremia on fluids na 135 today f/u labs HTN: on diltiazem and metoprolol will monitor Tobacco use disorder Nicotine patch Anxiety/depression: Paxil Joyce's esophagus: PPI Alcohol use disorder: Thiamine, folic acid DVT Px: Lovenox DISPOSITION transferred to tele social service for d/c planning home hospice? Vital Signs: Date Time Temp Pulse Resp B/P (MAP) Pulse Ox O2 Delivery O2 Flow Rate FiO2 12/10/17 19:37 94 20 92 Nasal Cannula 4.0 12/10/17 15:13 87 18 92 Nasal Cannula 4.0 12/10/17 15:00 Nasal Cannula 4.0 12/10/17 15:00 37.1 72 24 172/88 (116) 92 Nasal Cannula 4.0 12/10/17 14:00 37.1 91 24 155/89 (111) 90 Nasal Cannula 4.0 12/10/17 12:01 96 171/85 (113) 89 12/10/17 12:00 96 86 12/10/17 11:23 Nasal Cannula 4.0 12/10/17 11:23 36.9 89 22 157/77 (103) 90 Nasal Cannula 4.0 12/10/17 11:22 87 20 92 Nasal Cannula 4.0 12/10/17 11:01 82 157/77 (103) 92 12/10/17 11:00 81 12/10/17 10:00 76 86 12/10/17 09:01 91 156/79 (104) 88 12/10/17 09:00 91 12/10/17 08:02 108 162/84 (110) 87 12/10/17 08:00 122 84 12/10/17 07:31 88 20 88 Nasal Cannula 4.0 12/10/17 07:30 Nasal Cannula 4.0 30 12/10/17 07:30 36.8 88 20 161/82 (108) 90 Nasal Cannula 4.0 12/10/17 07:01 90 161/82 (108) 89 12/10/17 07:00 85 12/10/17 06:00 99 91 12/10/17 05:01 97 166/87 (113) 87 12/10/17 05:00 101 91 12/10/17 04:31 93 Nasal Cannula 4.0 12/10/17 04:09 83 16 93 Nasal Cannula 4.0 12/10/17 04:01 36.5 87 166/80 (108) 92 Nasal Cannula 4.0 12/10/17 04:00 85 12/10/17 03:01 63 180/89 (119) 84 12/10/17 03:00 101 78 12/10/17 02:03 91 146/78 (100) 90 12/10/17 02:02 91 152/77 (102) 90 12/10/17 02:00 66 87 12/10/17 01:01 93 134/79 (97) 86 12/10/17 01:00 90 88 Nasal Cannula 12/10/17 00:32 93 Nasal Cannula 4.0 12/10/17 00:01 36.5 99 151/80 (103) 88 Nasal Cannula 4.0 12/10/17 00:00 95 87 12/09/17 23:18 93 20 91 Nasal Cannula 4.0 12/09/17 22:04 118 164/89 (114) 12/09/17 22:00 117 12/09/17 21:01 119 162/84 (110) 83 12/09/17 21:00 118 81 12/09/17 20:01 113 161/81 (107) 92 12/09/17 20:00 93 Nasal Cannula 4.0 12/09/17 20:00 95 24 93 Nasal Cannula 4.0 12/09/17 20:00 114 93 Lab Results: Results Past 24 Hours Test 12/10/17 05:44 Range/Units White Blood Count 9.11 4.8-10.8 K/uL Red Blood Count 4.13 4.7-6.1 M/uL Hemoglobin 10.2 14.0-18.0 g/dL Hematocrit 34.9 42-52 % Mean Corpuscular Volume 84.5 80-100 fL Mean Corpuscular Hemoglobin 24.7 25-34 pg Mean Corpuscular Hemoglobin Concent 29.2 32-36 g/dl RDW Standard Deviation 69.8 36.4-46.3 fL RDW Coefficient of Variation 22.6 11.5-14.5 % Platelet Count 306 130-400 K/uL Mean Platelet Volume 8.5 7.4-10.4 fL Sodium Level 135 136-145 mmol/L Potassium Level 4.0 3.5-5.1 mmol/L Chloride Level 99 98-107 mmol/L Carbon Dioxide Level 30 21-32 mmol/L Anion Gap 6.0 3-11 mmol/L Blood Urea Nitrogen 29 7-18 mg/dl Creatinine 1.31 0.60-1.40 mg/dl Est Creatinine Clear Calc Drug Dose 60.9 ml/min Estimated GFR () 66.2 Estimated GFR (Non- 57.1 BUN/Creatinine Ratio 22.5 10-20 Random Glucose 126 70-99 mg/dl Calcium Level 8.6 8.5-10.1 mg/dl Phosphorus Level 4.4 2.5-4.9 mg/dl Magnesium Level 2.3 1.8-2.4 mg/dl
[2017-12-11] VITALS (17 sets, daily range): BP systolic 150–166; BP diastolic 79–93; PULSE 58–89; TEMP 36.6–37.1; O2SAT 90–98
[2017-12-11] MEDS: NORMOSOL R 1,000 ML IV SCH ×2 (00:21→13:56)
[2017-12-11] MEDS: METHYLPREDNISOLONE IV 40 MG in SYRINGE 0 ML IV SCH ×4 (02:18→20:52)
[2017-12-11] MEDS: ALBUT/IPRATROP 3MG/0.5MG NEB 3 ML VIAL INH SCH ×6 (03:40→23:35)
[2017-12-11] MEDS: OXYCODONE/ACETAMINOPHEN 10/325MG TAB PO PRN ×3 (03:58→19:23)
[2017-12-11] MEDS: HYDROmorphone INJ 0.5 MG/0.5 ML SYR IV PRN ×4 (06:02→23:28)
[2017-12-11 07:16] LABS: CREATININE 0.82 mg/dl (0.60-1.40)
[2017-12-11] MEDS: MULTIVITAMINS W/MINERALS 15ML UDP PO SCH (08:36)
[2017-12-11] MEDS: PAROXETINE 20 MG TAB PO SCH (08:38)
[2017-12-11] MEDS: THIAMINE HCL 100 MG TAB PO SCH (08:38)
[2017-12-11] MEDS: DILTIAZEM HCL 60 MG TAB PO SCH ×3 (08:38→20:50)
[2017-12-11] MEDS: AMLODIPINE BESYLATE 5 MG TAB PO SCH (08:38)
[2017-12-11] MEDS: ASPIRIN 325 MG ECTAB PO SCH (08:38)
[2017-12-11] MEDS: METOPROLOL SUCC 50MG EXT REL TAB PO SCH (08:38)
[2017-12-11] MEDS: NICOTINE 14 MG/24 HR TDSY TD SCH (08:39)
[2017-12-11] MEDS: PANTOprazole INJ 40 MG in SYRINGE 0 ML IV SCH (08:40)
[2017-12-11] MEDS: HEPARIN SOD 5000 UNIT/0.5 ML CARP SQ SCH ×2 (08:46→20:52)
--- NOTE | 2017-12-11 11:20 | Pulmonology Progress Note ---
Pulmonary Progress Note Date of Service Dec 11, 2017. Attending Dr. Guillory Subjective The patient tolerated the BiPAP overnight, he did not have any discomfort, in fact he loved it. Continues to have shortness of breath, more awake and following commands, is still have poor control on his left upper extremity, persistent swelling in his left upper extremity. Otherwise unremarkable night. Objective His vital signs are stable on his exam on 12/11/2017, O2 saturation is variable but he is still using 4 L of oxygen with O2 sat 92%, no stridor, scattered wheezing, S1-S2 regular rate and rhythm, edema in left upper extremity, abdomen is benign, no edema. Neurologically appears nonfocal. His data were reviewed as well which showed improvement in BUN/creatinine, no new imaging. Assessment & Plan 1. Acute on chronic hypercapnic respiratory failure. 2. COPD, gold level 3, grade C. 3. Recent frontal CVA, subacute, no significant neurologic deficit. 4. Left upper extremity edema, from extravasation of an IV site, possible DVT. 5. Anxiety disorder. 6. Chronic pain syndrome. 7. Pulmonary hypertension. Plan: 1. Continue with current dose of steroids Solu-Medrol 40 mg IV every 6 hours. Do not taper. 2. Continue with bronchodilators. 3. Maintain BiPAP 12/5 every night ongoing until the patient had sleep study at home when he discharged. 4. Ultrasound to the left upper extremity to rule out DVT. 5. Physical therapy today to ambulate with oxygen. 6. He would benefit from neurology evaluation due to his neuropathy and left upper involuntary movement. 7. Transfer to regular floor. 8. Appreciate palliative care. Thank you, will follow. Data Medications: Current Inpatient Medications Medications (Trade) Dose Ordered Sig/Tyree Route Start Time Stop Time Status Last Admin Dose Admin Acetaminophen (Tylenol Tab) 650 mg Q4H PRN PO 12/07/17 23:30 01/06/18 23:29 Pantoprazole Sodium 40 mg/ Syringe 10 ml @ 5 mls/min Q24H IV 12/08/17 09:00 01/07/18 08:59 12/11/17 08:40 5 MLS/MIN Amlodipine Besylate (Norvasc Tab) 10 mg DAILY PO 12/08/17 09:00 01/07/18 08:59 12/11/17 08:38 10 MG Diltiazem HCl (Cardizem Tab) 60 mg TID PO 12/08/17 09:00 01/07/18 08:59 12/11/17 08:38 60 MG Metoprolol Succinate (Toprol Xl Tab) 100 mg QAM PO 12/08/17 09:00 01/07/18 08:59 12/11/17 08:38 100 MG Paroxetine HCl (pAXil TAB) 20 mg DAILY PO 12/08/17 09:00 01/07/18 08:59 12/11/17 08:38 20 MG Artificial Tears (Lacri-Lube Oph Oint) 1 appln UD PRN OP 12/08/17 02:30 01/07/18 02:29 Multivitamins Therapeutic (Cerovite Liquid) 15 ml QAM PO 12/08/17 09:00 01/07/18 08:59 12/08/17 08:25 15 ML Thiamine HCl (Vitamin B-1 Tab) 100 mg QAM PO 12/08/17 09:00 01/07/18 08:59 12/11/17 08:38 100 MG Nicotine (Nicoderm Cq 14MG Patch) 1 patch QAM TD 12/08/17 09:00 01/07/18 08:59 12/09/17 08:48 1 PATCH Miscellaneous (Remove Nicoderm Patch) 1 ea HS N/A 12/08/17 21:00 01/07/18 20:59 12/10/17 20:06 1 EA Parenteral Electrolyte Solution 1,000 ml @ 75 mls/hr [id number] IV 12/09/17 08:00 01/08/18 07:59 12/11/17 00:21 75 MLS/HR Heparin Sodium (Porcine) (Heparin Sq 5000 Unit/0.5ml) 5,000 unit Q12 SQ 12/09/17 09:00 01/08/18 08:59 12/11/17 08:46 5,000 UNIT Oxycodone/ Acetaminophen (Percocet 10-325MG Tab) 1 tab Q6H PRN PO 12/09/17 14:15 12/23/17 14:14 12/11/17 10:42 1 TAB Morphine Sulfate (MoRPHine SULFATE INJ) 2 mg Q4H PRN IV 12/09/17 14:15 12/23/17 14:14 Future Hold 12/10/17 05:56 2 MG Albuterol/ Ipratropium (Duoneb) 3 ml Q4R INH 12/09/17 20:00 01/08/18 19:59 12/11/17 11:02 3 ML Aspirin (Ecotrin Tab) 325 mg QAM PO 12/10/17 09:00 01/09/18 08:59 12/11/17 08:38 325 MG Methylprednisolone Sodium Succinate 40 mg/Syringe 0.64 ml @ 1.5 mls/min Q6H IV 12/10/17 14:00 01/09/18 13:59 12/11/17 08:40 1.5 MLS/MIN Hydromorphone HCl (Dilaudid Inj) 0.5 mg Q6 PRN IV 12/10/17 12:00 12/24/17 11:59 12/11/17 06:02 0.5 MG Vital Signs: Date Time Temp Pulse Resp B/P (MAP) Pulse Ox O2 Delivery O2 Flow Rate FiO2 12/11/17 11:13 84 20 98 Nasal Cannula 4.0 12/11/17 07:30 Nasal Cannula 4.5 12/11/17 07:09 72 98 40 12/11/17 07:08 72 20 98 BiPAP/CPAP 40 12/11/17 05:22 36.6 58 26 150/92 (111) 90 Nasal Cannula 4.5 12/11/17 04:00 Nasal Cannula 4.5 12/11/17 03:40 82 24 92 Nasal Cannula 4.5 12/11/17 02:42 78 98 50 12/11/17 00:11 36.6 76 24 163/82 (109) 91 Nasal Cannula 4.5 12/11/17 00:01 Nasal Cannula 4.5 12/10/17 23:23 90 22 93 Nasal Cannula 4.0 12/10/17 20:00 Nasal Cannula 4.5 12/10/17 19:48 36.5 84 40 156/77 (103) 94 Nasal Cannula 4.5 12/10/17 19:37 94 20 92 Nasal Cannula 4.0 12/10/17 15:13 87 18 92 Nasal Cannula 4.0 12/10/17 15:00 Nasal Cannula 4.0 12/10/17 15:00 37.1 72 24 172/88 (116) 92 Nasal Cannula 4.0 12/10/17 14:00 37.1 91 24 155/89 (111) 90 Nasal Cannula 4.0 12/10/17 12:01 96 171/85 (113) 89 12/10/17 12:00 96 86 12/10/17 11:23 Nasal Cannula 4.0 12/10/17 11:23 36.9 89 22 157/77 (103) 90 Nasal Cannula 4.0 12/10/17 11:22 87 20 92 Nasal Cannula 4.0 Laboratory Results: Last 24 Hours Test 12/11/17 06:12 Creatinine 0.82 mg/dl Est Creatinine Clear Calc Drug Dose 97.9 ml/min Estimated GFR () 108.3 Estimated GFR (Non- 93.5
--- NOTE | 2017-12-11 14:49 | DIAGNOSTIC IMAGING REPORT ---
L VENOUS DOPPLER UPR EXT UNIL HISTORY: 62 years-old Male as above. Acute pain and swelling of the left upper extremity COMPARISON: Duplex venous Doppler study 12/08/2017 TECHNIQUE: Multiple real-time sonography images of the left upper extremity deep venous structures were obtained assessing grayscale appearance, color and spectral flow FINDINGS: There is normal flow, compressibility, phasicity and augmentation of the left upper extremity deep venous structures. Mild edema of the upper extremity. IMPRESSION: No sonographic evidence of deep venous thrombosis. The above report was generated using voice recognition software. It may contain grammatical, syntax or spelling errors. Electronically signed by: Des Olivier M.D. 12/11/2017 2:48 PM Dictated Date/Time: 12/11/2017 2:47 PM
--- NOTE | 2017-12-11 19:00 | Progress Note ---
Progress Note Date of Service Dec 11, 2017. Progress Note Subjective: Patient seen and examined at bedside in the ICU. No acute distress. Denies pain. Wearing nasal cannula. Able to eat without assistance Physical Exam General: no acute distress Neck-No JVD Lungs-CTA b/l mild b/l rhonchi present Heart-S1 and S2 heard regular rhythm no murmurs Abdomen-soft Bowels sounds present no distension Extremities- no gross swelling Neuro-alert and awake, moves extremities with weakness of left upper extremity Assessment and Plan: Acute on chronic hypercapnic respiratory failure / COPD, gold level 3, grade C / Pulmonary hypertension. - s/p intubation and extubation on this admission - Continue with current dose of steroids Solu-Medrol 40 mg IV every 6 hours. Do not taper. - Continue with bronchodilators. - Maintain BiPAP 07/31 every night ongoing until the patient had sleep study at home when he discharged. Recent frontal CVA, subacute / Left upper extremity edema and weakness -Head CT 12/09/17: Subtle hypoattenuation of the cristobal matter at the right frontal vertex, concerning for acute ischemia -obtain brain MRI if patient agrees -No sonographic evidence of deep venous thrombosis -PT/OT GABY resolved Chronic diastolic heart failure: Secondary to pulmonary hypertension and cor pulmonale -consider restarting diuretics if patient has more shortness of breath or has lower extremity edema HTN: on diltiazem and metoprolol Anxiety disorder: Paxil Chronic pain syndrome: on narcotics Alcohol use disorder: Thiamine, folic acid Tobacco use disorder: Nicotine patch Joyce's esophagus: PPI DVT ppx:Lovenox
--- NOTE | 2017-12-11 22:25 | Progress Note ---
Post ICU Progress Note Date & Time Dec 11, 2017 at 22:25 Vital Signs Vital Signs Past 12 Hours Date Time Temp Pulse Resp B/P (MAP) Pulse Ox O2 Delivery O2 Flow Rate FiO2 12/11/17 19:52 79 22 93 Nasal Cannula 4.5 12/11/17 19:17 36.7 75 24 154/79 (104) 93 Nasal Cannula 4.5 12/11/17 19:00 93 Nasal Cannula 4.5 12/11/17 16:00 36.7 86 24 154/87 (109) 95 Nasal Cannula 4.5 12/11/17 16:00 95 Nasal Cannula 4.5 12/11/17 15:38 89 20 93 Nasal Cannula 4.0 12/11/17 13:30 91 12/11/17 11:30 36.6 89 24 166/93 (117) 90 Nasal Cannula 4.5 12/11/17 11:20 Nasal Cannula 4.5 12/11/17 11:13 84 20 98 Nasal Cannula 4.0 Notes Patient is a 62-year-old male initially admitted to the ICU with acute on chronic hypercapnic respiratory failure with hypoxia requiring intubation. After successful correction of his CO2 narcosis, the patient was eventually extubated. After extubation, the patient did have complication of LEFT upper extremity swelling as well as associated numbness. CT of the head demonstrated a small RIGHT frontal area of possible CVA. He has since had return of neurologic function without issue. Throughout his stay in the ICU, the patient has had some persistent episodes of hypoxia. Most notably, the patient has had bouts of hypoxia which have resolved with use of BiPAP. Patient was eventually downgraded from ICU status. On evaluation this morning, the patient is resting comfortably. He is sleeping with his BiPAP in place. I did not wish to wait the patient for posterior and interview as he appeared in no acute distress. Consider outpatient follow up in 1 to 2 weeks with: PCP, Pulm Repeat imaging needed: Per admitting team. Follow up cultures: N/A Reviewed progress notes, labs, and inpatient medication list Continue current management Additional recommendations: Patient did well with BiPAP overnight. He may benefit greatly from overnight BiPAP as well. Can be pursued in the outpatient evaluation. Thank you for allowing us to participate in the care of this patient. At this time, Critical Care Services will sign off on this case. Please feel free to reconsult as needed. Consults & Procedures Consultants: Pulmonology
[2017-12-11] MEDS ORDERED: ZOLPIDEM TARTRATE 10 MG TAB PO PRN (23:30)
[2017-12-12] VITALS (16 sets, daily range): BP systolic 135–173; BP diastolic 70–88; PULSE 62–86; TEMP 36.4–36.8; O2SAT 85–100
[2017-12-12] MEDS: NORMOSOL R 1,000 ML IV SCH (02:19)
[2017-12-12] MEDS: METHYLPREDNISOLONE IV 40 MG in SYRINGE 0 ML IV SCH ×2 (02:29→07:39)
[2017-12-12] MEDS: OXYCODONE/ACETAMINOPHEN 10/325MG TAB PO PRN ×4 (04:04→21:56)
[2017-12-12] MEDS: ALBUT/IPRATROP 3MG/0.5MG NEB 3 ML VIAL INH SCH ×5 (04:18→22:59)
[2017-12-12] MEDS: HYDROmorphone INJ 0.5 MG/0.5 ML SYR IV PRN ×3 (07:40→20:12)
[2017-12-12] MEDS: PANTOprazole INJ 40 MG in SYRINGE 0 ML IV SCH (07:40)
[2017-12-12] MEDS: AMLODIPINE BESYLATE 5 MG TAB PO SCH (07:41)
[2017-12-12] MEDS: PAROXETINE 20 MG TAB PO SCH (07:41)
[2017-12-12] MEDS: ASPIRIN 325 MG ECTAB PO SCH (07:41)
[2017-12-12] MEDS: THIAMINE HCL 100 MG TAB PO SCH (07:41)
[2017-12-12] MEDS: DILTIAZEM HCL 60 MG TAB PO SCH ×3 (07:41→20:14)
[2017-12-12] MEDS: METOPROLOL SUCC 50MG EXT REL TAB PO SCH (07:42)
[2017-12-12] MEDS: MULTIVITAMINS W/MINERALS 15ML UDP PO SCH (07:42)
[2017-12-12] MEDS: NICOTINE 14 MG/24 HR TDSY TD SCH (07:43)
[2017-12-12] MEDS: HEPARIN SOD 5000 UNIT/0.5 ML CARP SQ SCH ×2 (07:44→20:17)
[2017-12-12] MEDS ORDERED: LORAZEPAM INJ 2 MG in SYRINGE 1 ML IV PRN (08:15)
[2017-12-12] MEDS ORDERED: LORAZEPAM 2 MG/ML 1 ML VIAL IV PRN ×2 (08:15→17:30)
[2017-12-12] MEDS ORDERED: NURSING VERBAL MED ORDER ONE (09:45)
--- NOTE | 2017-12-12 10:14 | DIAGNOSTIC IMAGING REPORT ---
BRAIN COMBO HISTORY: 62 years-old Male rule out brain ischemia acute left arm numbness and weakness for 6 days with general weakness COMPARISON: Head CT 12/09/2017 TECHNIQUE: Multiplanar multisequence MRI of the brain was obtained both with and without the use of 8.5 mL Gadavist FINDINGS: The large [id number] two way radio installer localizer images demonstrate no gross abnormality. There is no restricted diffusion to suggest acute or subacute infarction. Midline structures including the corpus callosum, brainstem, optic chiasm, pituitary and pineal glands are unremarkable in the sagittal T1 series. No cerebellar tonsillar herniation. Several sequences are motion degraded. No acute intracranial hemorrhage, midline shift, abnormal extra-axial collections, hydrocephalus or intracranial mass. No significant parenchymal signal abnormalities of the brain. There is no abnormal intra-axial or extra-axial enhancement. Mild atrophy. Major flow voids at the level of the skull base appear patent. Orbits are symmetric and unremarkable. Mild maxillary and moderate ethmoid sinus disease. With moderate bilateral mastoid effusions. Scalp, calvarium and soft tissues are within normal limits. IMPRESSION: 1. Motion degraded exam without acute intracranial abnormality identified. No evidence of acute or subacute infarction or abnormal enhancement. 2. Mild atrophy. 3. Mild maxillary and moderate ethmoid sinus disease. 4. Moderate bilateral mastoid effusions. The above report was generated using voice recognition software. It may contain grammatical, syntax or spelling errors. Electronically signed by: Des Olivier M.D. 12/12/2017 10:12 AM Dictated Date/Time: 12/12/2017 10:09 AM
[2017-12-12] MEDS ORDERED: GADAVIST IV PRN (10:15)
--- NOTE | 2017-12-12 13:13 | Palliative Care Progress Note ---
Palliative Care Progress Note Date of Service Dec 12, 2017. Subjective Pt evaluation today including: conversation w/ patient, physical exam Pain: 0/10 PO Intake: improving - adequate Patient is a 62-year-old male initially admitted to the ICU with acute on chronic hypercapnic respiratory failure with hypoxia requiring intubation. He has been extubated and goals of care were established with his sister and friend in the room. Upon follow up assessment, he was ambulating from the bedside chair to his bed in no acute distress. He was able to hold a conversation with me without struggling to catch his breath. He continues to require 4.5 LO2 and has been using the Bipap at night which has helped his sleep 'tremendously' in his words. He expressed that he would like to proceed with making his sister his medical POA - who was notified and is filling out the paperwork with him after I left the room. He has stated that he still wishes to return home with some support and not proceed to a nursing facility. He states that he wants to remain DNR/DNI which is consistent to our conversation on 12/10. He stressed that his arm continues to bother him, but I suspect this is still related to the infiltrated IV that occurred in the ICU vs an acute CVA. Pt denies CP, dysphagia, dizziness, palpitations, ZEPEDA. Review of Systems All Other Systems: Reviewed and Negative (patient states his breathing is labored with extensive walking) Objective Vital Signs Date Time Temp Pulse Resp B/P (MAP) Pulse Ox O2 Delivery O2 Flow Rate FiO2 12/12/17 12:00 Nasal Cannula 4.5 12/12/17 11:50 36.6 62 20 138/77 (97) 93 Nasal Cannula 4.5 12/12/17 10:53 74 19 95 Nasal Cannula 4.5 12/12/17 08:13 36.8 71 20 156/77 (103) 100 BiPAP 12/12/17 08:00 Nasal Cannula 4.5 12/12/17 07:32 65 15 95 Nasal Cannula 4.5 12/12/17 04:19 74 96 50 12/12/17 04:18 74 16 96 BiPAP/CPAP 50 12/12/17 04:00 70 18 164/88 (113) 98 BiPAP 12/12/17 04:00 Nasal Cannula 4.5 12/12/17 00:17 36.7 71 18 158/83 (108) 92 12/11/17 23:37 68 95 50 12/11/17 23:35 68 18 94 BiPAP/CPAP 50 12/11/17 23:28 Nasal Cannula 4.5 12/11/17 19:52 79 22 93 Nasal Cannula 4.5 12/11/17 19:17 36.7 75 24 154/79 (104) 93 Nasal Cannula 4.5 12/11/17 19:00 93 Nasal Cannula 4.5 12/11/17 16:00 36.7 86 24 154/87 (109) 95 Nasal Cannula 4.5 12/11/17 16:00 95 Nasal Cannula 4.5 12/11/17 15:38 89 20 93 Nasal Cannula 4.0 12/11/17 13:30 91 Physical Exam General Appearance: + mild distress Neck: no JVD Respiratory/Chest: chest non-tender, normal breath sounds, + decreased breath sounds, + accessory muscle use Cardiovascular: regular rate, rhythm, + pertinent finding (+2 B/L LE pitting edema) Abdomen: normal bowel sounds, non tender, soft Extremities: + pertinent finding (RUE 4/5 LUE 4/5 LLE 4+/5 RLE 4+5) Neurologic/Psychiatric: oriented x 3 Skin: warm/dry Assessment and Plan Palliative Care Encounter Goals of Care COPD Palliative Care recommendations: -With his end-stage COPD and most recent FEV at 44%, I still believe he would qualify for hospice at home with the appropriate support. -Continue with bronchodilators and steroids related to -Continue with BIPAP at night - this also can be used in conjunction with Hospice as this patient is at the end -stage of his disease -Patient to remain DNR/DNI -Continue to work with Case Management with discharge planning Palliative Performance Scale: 60 % Continued [facility] stay due to: other (requiring medications for COPD exacerbation management) Discharge planning: other (home with home health vs hospice support) Counseling and Coordination Total time spent 35 minutes with > 50% of that time assessing patient and re- discussing goals of care
--- NOTE | 2017-12-12 13:14 | Pulmonology Progress Note ---
Pulmonary Progress Note Date of Service Dec 12, 2017. Attending Dr. Guillory Subjective The patient is improving slowly, however his respiratory status has been improving, no chest pain was reported, shortness of breath is better and he sitting in the chair, he was able to ambulate around the bed. The patient continued use oxygen properly. The swelling in his left upper extremity is less but still persistent. Objective His vital signs are stable on his exam on 12/11/2017, O2 saturation is variable but he is still using 4 L of oxygen with O2 sat 92%, no stridor, scattered wheezing, S1-S2 regular rate and rhythm, edema in left upper extremity, abdomen is benign, no edema. Neurologically appears nonfocal. His data were reviewed as well which showed improvement in BUN/creatinine, no new imaging. Physical exam on 12/12/2017 revealed O2 saturation of 95% on 4 L, scattered rhonchi but no wheezing, S1-S2 regular rate and rhythm, abdomen is benign, edema in the left upper extremity, neurologically does not appear to be focal but this does have this dexterous movement in his left upper extremity. Assessment & Plan 1. Acute on chronic hypercapnic respiratory failure. Improving. 2. COPD, gold level 3, grade C. Stabilized on steroids. 3. Recent frontal CVA, subacute, no significant neurologic deficit except for involuntary movement of his left upper extremity 4. Left upper extremity edema, from extravasation of an IV site, no evidence of DVT by ultrasound. 5. Anxiety disorder. 6. Chronic pain syndrome. 7. Pulmonary hypertension. Plan: 1. Change steroids to prednisone 60 mg p.o. daily. Taper by 10 mg every 4 days. 2. Continue with bronchodilators. 3. Maintain BiPAP 12/5 every night ongoing, arrange for BiPAP at home for trilogy. 4. Change Protonix to p.o. daily. 5. Physical therapy. 6. He would benefit from neurology evaluation due to his neuropathy and left upper involuntary movement. 7. Arrange for pulmonary rehab. The patient would benefit from inpatient pulmonary rehab. 8. Appreciate palliative care. Thank you, will follow. Data Medications: Current Inpatient Medications Medications (Trade) Dose Ordered Sig/Tyree Route Start Time Stop Time Status Last Admin Dose Admin Acetaminophen (Tylenol Tab) 650 mg Q4H PRN PO 12/07/17 23:30 01/06/18 23:29 Pantoprazole Sodium 40 mg/ Syringe 10 ml @ 5 mls/min Q24H IV 12/08/17 09:00 01/07/18 08:59 12/12/17 07:40 5 MLS/MIN Amlodipine Besylate (Norvasc Tab) 10 mg DAILY PO 12/08/17 09:00 01/07/18 08:59 12/12/17 07:41 10 MG Diltiazem HCl (Cardizem Tab) 60 mg TID PO 12/08/17 09:00 01/07/18 08:59 12/12/17 07:41 60 MG Metoprolol Succinate (Toprol Xl Tab) 100 mg QAM PO 12/08/17 09:00 01/07/18 08:59 12/12/17 07:42 100 MG Paroxetine HCl (pAXil TAB) 20 mg DAILY PO 12/08/17 09:00 01/07/18 08:59 12/12/17 07:41 20 MG Multivitamins Therapeutic (Cerovite Liquid) 15 ml QAM PO 12/08/17 09:00 01/07/18 08:59 12/12/17 07:42 15 ML Thiamine HCl (Vitamin B-1 Tab) 100 mg QAM PO 12/08/17 09:00 01/07/18 08:59 12/12/17 07:41 100 MG Nicotine (Nicoderm Cq 14MG Patch) 1 patch QAM TD 12/08/17 09:00 01/07/18 08:59 12/09/17 08:48 1 PATCH Miscellaneous (Remove Nicoderm Patch) 1 ea HS N/A 12/08/17 21:00 01/07/18 20:59 12/10/17 20:06 1 EA Heparin Sodium (Porcine) (Heparin Sq 5000 Unit/0.5ml) 5,000 unit Q12 SQ 12/09/17 09:00 01/08/18 08:59 12/12/17 07:44 5,000 UNIT Oxycodone/ Acetaminophen (Percocet 10-325MG Tab) 1 tab Q6H PRN PO 12/09/17 14:15 12/23/17 14:14 12/12/17 10:19 1 TAB Albuterol/ Ipratropium (Duoneb) 3 ml Q4R INH 12/09/17 20:00 01/08/18 19:59 12/12/17 10:52 3 ML Aspirin (Ecotrin Tab) 325 mg QAM PO 12/10/17 09:00 01/09/18 08:59 12/12/17 07:41 325 MG Hydromorphone HCl (Dilaudid Inj) 0.5 mg Q6 PRN IV 12/10/17 12:00 12/24/17 11:59 12/12/17 07:40 0.5 MG Lorazepam (Ativan Inj) 2 mg Q4H PRN IV 12/12/17 08:15 01/11/18 08:14 12/12/17 09:00 2 MG Lorazepam 2 mg/ Syringe 2 ml @ 1 mls/min Q4H PRN IV 12/12/17 08:15 01/11/18 08:14 Gadobutrol (Gadavist) 8.5 mmol UD PRN IV 12/12/17 10:15 12/16/17 10:14 Prednisone (PredniSONE TAB) 60 mg DAILY PO 12/12/17 14:00 01/11/18 13:59 UNV Vital Signs: Date Time Temp Pulse Resp B/P (MAP) Pulse Ox O2 Delivery O2 Flow Rate FiO2 12/12/17 12:00 Nasal Cannula 4.5 12/12/17 11:50 36.6 62 20 138/77 (97) 93 Nasal Cannula 4.5 12/12/17 10:53 74 19 95 Nasal Cannula 4.5 12/12/17 08:13 36.8 71 20 156/77 (103) 100 BiPAP 12/12/17 08:00 Nasal Cannula 4.5 12/12/17 07:32 65 15 95 Nasal Cannula 4.5 12/12/17 04:19 74 96 50 12/12/17 04:18 74 16 96 BiPAP/CPAP 50 12/12/17 04:00 70 18 164/88 (113) 98 BiPAP 12/12/17 04:00 Nasal Cannula 4.5 12/12/17 00:17 36.7 71 18 158/83 (108) 92 12/11/17 23:37 68 95 50 12/11/17 23:35 68 18 94 BiPAP/CPAP 50 12/11/17 23:28 Nasal Cannula 4.5 12/11/17 19:52 79 22 93 Nasal Cannula 4.5 12/11/17 19:17 36.7 75 24 154/79 (104) 93 Nasal Cannula 4.5 12/11/17 19:00 93 Nasal Cannula 4.5 12/11/17 16:00 36.7 86 24 154/87 (109) 95 Nasal Cannula 4.5 12/11/17 16:00 95 Nasal Cannula 4.5 12/11/17 15:38 89 20 93 Nasal Cannula 4.0 12/11/17 13:30 91
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
--- NOTE | 2017-12-12 16:49 | Progress Note ---
Internal Med Progress Note Date of Service: Dec 12, 2017. Provider Documentation: Subjective: Patient seen and examined at bedside on the telemetry pearson bed. Patient expresses concern about his health status but no acute changes since yesterday. Continues to have left upper extremity weakness Physical Exam General: no acute distress Neck-No JVD Lungs-fair air entry bilaterally, no wheezing, no use of accessory muscles, on nasal cannula Heart-S1 and S2 heard regular rhythm no murmurs Abdomen-soft Bowels sounds present no distension Extremities- no gross swelling Neuro-alert and awake, moves extremities with weakness of left upper extremity ASSESSMENT & PLAN: Assessment and Plan: Acute on chronic hypercapnic respiratory failure / COPD, gold level 3, grade C / Pulmonary hypertension. - s/p intubation and extubation on this admission - prednisone 60 mg p.o. daily and Taper by 10 mg every 4 days as per pulmonary service - Continue with bronchodilators. - Maintain BiPAP 12/5 every night ongoing until the patient had sleep study at home when he discharged. - Protonix Chronic diastolic heart failure: Secondary to pulmonary hypertension and cor pulmonale -consider restarting diuretics if patient has more shortness of breath or has lower extremity edema Recent frontal CVA, subacute / Left upper extremity edema and weakness -Head CT 12/09/17: Subtle hypoattenuation of the cristobal matter at the right frontal vertex, concerning for acute ischemia -No sonographic evidence of deep venous thrombosis on ultrasound 12/11/17 -Brain MRI 12/12/17: 1. Motion degraded exam without acute intracranial abnormality identified. No evidence of acute or subacute infarction or abnormal enhancement. 2. Mild atrophy. 3. Mild maxillary and moderate ethmoid sinus disease. 4. Moderate bilateral mastoid effusions -PT/OT -neurology consultation requested on 12/12/17 in regards to extremity weakness GABY resolved HTN: on diltiazem and metoprolol Anxiety disorder: Paxil Chronic pain syndrome: on narcotics Alcohol use disorder: Thiamine, folic acid Tobacco use disorder: Nicotine patch Joyce's esophagus: PPI DVT ppx:Lovenox Disposition: have discussed with case management in regards for physical rehabilitation placement after hospital stay Vital Signs: Date Time Temp Pulse Resp B/P (MAP) Pulse Ox O2 Delivery O2 Flow Rate FiO2 12/12/17 15:01 82 19 BiPAP/CPAP 50 12/12/17 12:00 Nasal Cannula 4.5 12/12/17 11:50 36.6 62 20 138/77 (97) 93 Nasal Cannula 4.5 12/12/17 10:53 74 19 95 Nasal Cannula 4.5 12/12/17 08:13 36.8 71 20 156/77 (103) 100 BiPAP 12/12/17 08:00 Nasal Cannula 4.5 12/12/17 07:32 65 15 95 Nasal Cannula 4.5 12/12/17 04:19 74 96 50 12/12/17 04:18 74 16 96 BiPAP/CPAP 50 12/12/17 04:00 70 18 164/88 (113) 98 BiPAP 12/12/17 04:00 Nasal Cannula 4.5 12/12/17 00:17 36.7 71 18 158/83 (108) 92 12/11/17 23:37 68 95 50 12/11/17 23:35 68 18 94 BiPAP/CPAP 50 12/11/17 23:28 Nasal Cannula 4.5 12/11/17 19:52 79 22 93 Nasal Cannula 4.5 12/11/17 19:17 36.7 75 24 154/79 (104) 93 Nasal Cannula 4.5 12/11/17 19:00 93 Nasal Cannula 4.5
[2017-12-12] MEDS ORDERED: LORAZEPAM 2 MG/ML 1 ML VIAL IV SCH (19:00)
[2017-12-13] VITALS (16 sets, daily range): BP systolic 134–172; BP diastolic 67–79; PULSE 67–81; TEMP 35.8–37.3; O2SAT 89–100
[2017-12-13] MEDS: HYDROmorphone INJ 0.5 MG/0.5 ML SYR IV PRN ×3 (02:20→14:16)
[2017-12-13] MEDS: ALBUT/IPRATROP 3MG/0.5MG NEB 3 ML VIAL INH SCH ×6 (03:23→23:33)
[2017-12-13] MEDS: OXYCODONE/ACETAMINOPHEN 10/325MG TAB PO PRN ×3 (06:18→21:36)
--- NOTE | 2017-12-13 06:55 | DIAGNOSTIC IMAGING REPORT ---
MRI CERVICAL WITHOUT CONTRAST CLINICAL HISTORY: Neck pain. History of prior trauma. Left arm dysfunction. The study is very limited from a technical standpoint. Localizer images and sagittal T1-weighted images were acquired. The patient pulled himself out of the scanner. Repeat attempts were made of the patient again pulled himself out of the scanner. COMPARISON STUDY: 03/29/2015 There are no suspicious areas of marrow replacement. No expansile cord lesions are visualized on the motion artifacts sagittal T1 weighted images. The study is inadequate for evaluation of significant disc pathology There is no evidence of a Chiari malformation. IMPRESSION: 1. Very limited study from a technical standpoint 2. No evidence of pathologic marrow replacement. 3. No expansile cord lesions are visualized. Electronically signed by: Martinez Garcia M.D. 12/13/2017 6:53 AM Dictated Date/Time: 12/13/2017 6:49 AM
[2017-12-13 07:07] LABS: ALBUMIN 2.4 gm/dl (3.4-5.0); CALCIUM 8.5 mg/dl (8.5-10.1); CREATININE 0.86 mg/dl (0.60-1.40); POTASSIUM 3.7 mmol/L (3.5-5.1)
[2017-12-13 07:09] LABS: TOTAL PROTEIN 5.8 gm/dl (6.4-8.2)
[2017-12-13] MEDS: METOPROLOL SUCC 50MG EXT REL TAB PO SCH (08:07)
[2017-12-13] MEDS: ASPIRIN 325 MG ECTAB PO SCH (08:08)
[2017-12-13] MEDS: THIAMINE HCL 100 MG TAB PO SCH (08:08)
[2017-12-13] MEDS: AMLODIPINE BESYLATE 5 MG TAB PO SCH (08:08)
[2017-12-13] MEDS: PANTOprazole SOD 40 MG TAB PO SCH (08:08)
[2017-12-13] MEDS: DILTIAZEM HCL 60 MG TAB PO SCH ×3 (08:09→21:34)
[2017-12-13] MEDS: PAROXETINE 20 MG TAB PO SCH (08:09)
[2017-12-13] MEDS: MULTIVITAMINS W/MINERALS 15ML UDP PO SCH (08:10)
[2017-12-13] MEDS: NICOTINE 14 MG/24 HR TDSY TD SCH (08:10)
[2017-12-13] MEDS: HEPARIN SOD 5000 UNIT/0.5 ML CARP SQ SCH ×2 (08:19→21:35)
[2017-12-13] MEDS ORDERED: ALBUTEROL 0.5% NEB SOLN 2.5 MG/0.5 ML VIAL INH STA (09:46)
--- NOTE | 2017-12-13 13:02 | DIAGNOSTIC IMAGING REPORT ---
CHEST 2 VIEWS ROUTINE CLINICAL HISTORY: wheezing, on bipap, rule out infiltrates COMPARISON STUDY: 12/09/2017 FINDINGS: Interval extubation. Moderate emphysematous change. Small hiatal hernia. Small parenchymal infiltrate left base. IMPRESSION: 1. Interval extubation. 2. Moderate emphysematous change. 3. Small parenchymal infiltrate left base. The above report was generated using voice recognition software. It may contain grammatical, syntax or spelling errors. Electronically signed by: Raman Julio M.D. 12/13/2017 1:01 PM Dictated Date/Time: 12/13/2017 1:00 PM
--- NOTE | 2017-12-13 13:41 | DIAGNOSTIC IMAGING REPORT ---
BILATERAL LOWER EXTREMITY VENOUS DOPPLER HISTORY: lower extremity swelling, rule out DVT COMPARISON STUDY: None. FINDINGS: There is normal compressibility, flow, and augmentation within the bilateral lower extremity deep venous systems. Calf vessels were suboptimally visualized due to the lower extremity edema. IMPRESSION: No DVT within the visualized right or left lower extremity. Electronically signed by: Shaun Burns M.D. 12/13/2017 1:39 PM Dictated Date/Time: 12/13/2017 1:39 PM
--- NOTE | 2017-12-13 15:48 | Neurology Progress Notes ---
Neurology Progress Note Date of Service Dec 13, 2017. Prakash Perdue is a 62-year-old male with PMH of advanced COPD, pulmonary hypertension, chronic bronchiectasis, diastolic heart failure, HTN, BCC, Tobacco use disorder , anxiety, depression, Joyce's esophagus who presented with worsening shortness of breath. On arrival he was minimally responsive and in severe respiratory distress on BiPAP. He had been sleeping 2-3 days prior to arrival and he has called his sister today requesting for help. He was admitted with severe respiratory acidosis and was intubated. He was told he needed a lung transplant but decided not to pursue it. Currently he is sitting bedside and complaining of a right LE weakness, and left UE weakness. he states he thought he went through with the MRI c spine he states he is willing to try again if they can give him his 2000 pain meds and give him the ativan again. denies CP, N, V, abdominal pain, +SOB on NC 02 receiving a breathing treatment. Objective Date Time Temp Pulse Resp B/P (MAP) Pulse Ox O2 Delivery O2 Flow Rate FiO2 12/13/17 15:29 71 18 96 Nasal Cannula 4.5 12/13/17 12:00 96 Nasal Cannula 4.5 50 BiPAP 12/13/17 11:21 67 18 89 Room Air 12/13/17 11:00 37.0 74 18 159/67 (97) 97 12/13/17 09:15 36.8 75 18 153/74 (100) 96 12/13/17 08:00 96 Nasal Cannula 4.5 50 BiPAP 12/13/17 06:58 67 96 50 12/13/17 06:57 67 20 96 BiPAP/CPAP 50 12/13/17 04:18 35.8 67 18 159/78 (105) 100 12/13/17 04:00 94 BiPAP 12/13/17 03:25 76 20 96 BiPAP/CPAP 50 12/13/17 03:23 76 95 50 12/13/17 00:00 94 Nasal Cannula 4.5 12/12/17 23:34 36.8 68 16 150/79 (102) 85 12/12/17 23:00 85 19 94 BiPAP/CPAP 50 12/12/17 20:17 36.6 64 20 135/70 (91) 93 Nasal Cannula 2.0 12/12/17 20:00 93 Nasal Cannula 4.5 12/12/17 19:12 36.4 86 24 173/83 (113) 91 BiPAP 12/12/17 19:03 84 19 Nasal Cannula 4.5 50 12/12/17 16:00 93 Nasal Cannula 4.5 Last 24 Hours Test 12/13/17 06:09 Sodium Level 137 mmol/L Potassium Level 3.7 mmol/L Chloride Level 96 mmol/L Carbon Dioxide Level 39 mmol/L Anion Gap 2.0 mmol/L Blood Urea Nitrogen 25 mg/dl Creatinine 0.86 mg/dl Est Creatinine Clear Calc Drug Dose 94.1 ml/min Estimated GFR () 106.2 Estimated GFR (Non- 91.6 BUN/Creatinine Ratio 29.6 Random Glucose 115 mg/dl Calcium Level 8.5 mg/dl Total Bilirubin 0.4 mg/dl Aspartate Amino Transf (AST/SGOT) 23 U/L Alanine Aminotransferase (ALT/SGPT) 24 U/L Alkaline Phosphatase 49 U/L Total Protein 5.8 gm/dl Albumin 2.4 gm/dl Globulin 3.4 gm/dl Albumin/Globulin Ratio 0.7 Imaging: DVT- No DVT within the visualized right or left lower extremity. MRI c spine- . Very limited study from a technical standpoint No evidence of pathologic marrow replacement. No expansile cord lesions are visualized. Exam: Physical Exam: Constitutional: appearance ill appearing, on O2 NC, breathing treatment Ears, Nose, Mouth and Throat: mucous membranes moist, no injection and skin normal, eyes normal Cardiovascular: normal S-1 and S-2 and regular rate and rhythm Respiratory: course breath sound Musculoskeletal:LE edema RLE Skin: no stigmata of neurocutaneous disease noted and normal and intact Eyes: extraocular muscles intact (EOMI) and pupils equal, round and reactive to light (PERRL) NEUROLOGIC EXAMINATION: Mental status: Alert and interactive Oriented to full date and location Oriented to person Speech fluent with no evidence of aphasia Cranial Nerves smile eye brow raise symmetric Reflexes: brisk LE patellar reflexes, clonus bilaterally Gait/Stance: Posture sitting bedside Motor: Negative for pronator drift of out stretched arms with eyes closed. Strength: Right UE biceps triceps deltoids intrinsics hand marketing automation analyst 5/5 left biceps, triceps 3 +/5, atrophy biceps triceps, hand marketing automation analyst 3/5, intrinsics 3/5, hip flex 4/5 bilaterally Current Inpatient Medications Medications (Trade) Dose Ordered Sig/Tyree Route Start Time Stop Time Status Last Admin Dose Admin Acetaminophen (Tylenol Tab) 650 mg Q4H PRN PO 12/07/17 23:30 01/06/18 23:29 Amlodipine Besylate (Norvasc Tab) 10 mg DAILY PO 12/08/17 09:00 01/07/18 08:59 12/13/17 08:08 10 MG Diltiazem HCl (Cardizem Tab) 60 mg TID PO 12/08/17 09:00 01/07/18 08:59 12/13/17 14:16 60 MG Metoprolol Succinate (Toprol Xl Tab) 100 mg QAM PO 12/08/17 09:00 01/07/18 08:59 12/13/17 08:07 100 MG Paroxetine HCl (pAXil TAB) 20 mg DAILY PO 12/08/17 09:00 01/07/18 08:59 12/13/17 08:09 20 MG Multivitamins Therapeutic (Cerovite Liquid) 15 ml QAM PO 12/08/17 09:00 01/07/18 08:59 12/13/17 08:10 15 ML Thiamine HCl (Vitamin B-1 Tab) 100 mg QAM PO 12/08/17 09:00 01/07/18 08:59 12/13/17 08:08 100 MG Nicotine (Nicoderm Cq 14MG Patch) 1 patch QAM TD 12/08/17 09:00 01/07/18 08:59 12/09/17 08:48 1 PATCH Miscellaneous (Remove Nicoderm Patch) 1 ea HS N/A 12/08/17 21:00 01/07/18 20:59 12/12/17 20:12 1 EA Heparin Sodium (Porcine) (Heparin Sq 5000 Unit/0.5ml) 5,000 unit Q12 SQ 12/09/17 09:00 01/08/18 08:59 12/13/17 08:19 5,000 UNIT Oxycodone/ Acetaminophen (Percocet 10-325MG Tab) 1 tab Q6H PRN PO 12/09/17 14:15 12/23/17 14:14 12/13/17 12:21 1 TAB Albuterol/ Ipratropium (Duoneb) 3 ml Q4R INH 12/09/17 20:00 01/08/18 19:59 12/13/17 15:29 3 ML Aspirin (Ecotrin Tab) 325 mg QAM PO 12/10/17 09:00 01/09/18 08:59 12/13/17 08:08 325 MG Hydromorphone HCl (Dilaudid Inj) 0.5 mg Q6 PRN IV 12/10/17 12:00 12/24/17 11:59 12/13/17 14:16 0.5 MG Gadobutrol (Gadavist) 8.5 mmol UD PRN IV 12/12/17 10:15 12/16/17 10:14 Prednisone (PredniSONE TAB) 60 mg DAILY PO 12/12/17 14:00 01/11/18 13:59 12/13/17 08:08 60 MG Pantoprazole Sodium (Protonix Tab) 40 mg QAM PO 12/13/17 09:00 01/12/18 08:59 12/13/17 08:08 40 MG Impression 62 year old male with acute respiratory failure and intubated, now extubated with left UE/right LE weakness. Plan 1. MRI with no evidence of ischemic event- 3. positive for marijuana and EtOH 3.0 on admission currently receiving thiamine 4. Left UE weakness, edema IV infiltrate? local trauma fall? atrophy left UE favors chronic neck issues 5. PT/OT for discharge needs 6. palliative medicine for medication management 7. fall risk 8. pulmonary with no new recommendations 9. TTE no PFO 10. MRI cspine- unable to tolerate for good images. patient willing to try again tonight if he can get his 2000 pain meds and the ativan prior to going to the scanner. I have seen and discussed above patient with Dr Clare Shin, neurology Pt seen and examined. Sx unchanged. Pt appears very mildly encephalopathic, does not recall discussion about not having had an acute stroke, likely cervical etiology. Pt indicated that he believes he could have MRI if pain meds and pre-sedation are coordinated on-call to MRI. Nursing indicates that he becaem confused last pm with ativan. Unclear to this examiner as pt received ativan earlier in day for presedation for MRI brain and there is no reported adverse effects. Pt will need to be monitored closely. SERAFIN Shin MD
[2017-12-13] MEDS ORDERED: LORAZEPAM 2 MG/ML 1 ML VIAL IV ONE (17:30)
[2017-12-13] MEDS ORDERED: OXYCODONE/ACETAMINOPHEN 10/325MG TAB PO PRN (17:30)
--- NOTE | 2017-12-13 17:30 | Progress Note ---
Internal Med Progress Note Date of Service: Dec 13, 2017. Provider Documentation: Subjective: Patient was seen this AM with BIPAP and reported sleeping well and and in the afternoon was able to ambulate without oxygen. Patient able to move left upper extremity more fluidly Physical Exam General: no acute distress Neck-No JVD Lungs-fair air entry bilaterally, no use of accessory muscles Heart-S1 and S2 heard regular rhythm no murmurs Abdomen-soft Bowels sounds present no distension Extremities- left lower extremity swelling Neuro-alert and awake, moves extremities with weakness of left upper extremity which has swelling of the hands, ASSESSMENT & PLAN: Assessment and Plan: Acute on chronic hypercapnic respiratory failure / COPD, gold level 3, grade C / Pulmonary hypertension. - s/p intubation and extubation on this admission - prednisone 60 mg p.o. daily and Taper by 10 mg every 4 days as per pulmonary service - Continue with bronchodilators. - Maintain BiPAP 12/5 every night ongoing until the patient had sleep study at home when he discharged. - Nocturnal pulse oximetry test ordered Chronic diastolic heart failure: Secondary to pulmonary hypertension and cor pulmonale -left upper extremity swelling when in the ICU possible due to IV infiltrate -Left venous upper extremity ultrasound 12/11/17: FINDINGS: There is normal flow , compressibility, phasicity and augmentation of the left upper extremity deep venous structures. Mild edema of the upper extremity. IMPRESSION: No sonographic evidence of deep venous thrombosis. -Lasix IV 40 mg ordered for the left lower extremity swelling, restart Lasix 20 mg daily -ultrasound bilateral lower extremities 12/13/17:Calf vessels were suboptimally visualized due to the lower extremity edema. No DVT within the visualized right or left lower extremity Recent frontal CVA, subacute / Left upper extremity edema and weakness -Head CT 12/09/17: Subtle hypoattenuation of the cristobal matter at the right frontal vertex, concerning for acute ischemia -No sonographic evidence of deep venous thrombosis on ultrasound 12/11/17 -neurology consultation requested on 12/12/17 -Brain MRI 12/12/17: 1. Motion degraded exam without acute intracranial abnormality identified. No evidence of acute or subacute infarction or abnormal enhancement. 2. Mild atrophy. 3. Mild maxillary and moderate ethmoid sinus disease. 4. Moderate bilateral mastoid effusions - Cervical Spine MRI 12/12/17 1. Very limited study from a technical standpoint 2. No evidence of pathologic marrow replacement. 3. No expansile cord lesions are visualized - a repeat cervical spine MRI has been ordered GABY resolved HTN: on diltiazem and metoprolol Anxiety disorder: Paxil Chronic pain syndrome: on narcotics Alcohol use disorder: Thiamine, folic acid Tobacco use disorder: Nicotine patch Joyce's esophagus: PPI DVT ppx:Lovenox Physical Therapy: recommend return home with O2 and home health assist prn Disposition: Patient has made home arrangements which will be in place by tomorrow. Patient will need BIPAP to go home with. Will need to continue to discuss with case management Vital Signs: Date Time Temp Pulse Resp B/P (MAP) Pulse Ox O2 Delivery O2 Flow Rate FiO2 12/13/17 16:00 Nasal Cannula 4.5 12/13/17 15:44 36.7 75 20 134/79 (97) 94 Nasal Cannula 4.0 12/13/17 15:29 71 18 96 Nasal Cannula 4.5 12/13/17 12:00 96 Nasal Cannula 4.5 50 BiPAP 12/13/17 11:21 67 18 89 Room Air 12/13/17 11:00 37.0 74 18 159/67 (97) 97 12/13/17 09:15 36.8 75 18 153/74 (100) 96 12/13/17 08:00 96 Nasal Cannula 4.5 50 BiPAP 12/13/17 06:58 67 96 50 12/13/17 06:57 67 20 96 BiPAP/CPAP 50 12/13/17 04:18 35.8 67 18 159/78 (105) 100 12/13/17 04:00 94 BiPAP 12/13/17 03:25 76 20 96 BiPAP/CPAP 50 12/13/17 03:23 76 95 50 12/13/17 00:00 94 Nasal Cannula 4.5 12/12/17 23:34 36.8 68 16 150/79 (102) 85 12/12/17 23:00 85 19 94 BiPAP/CPAP 50 12/12/17 20:17 36.6 64 20 135/70 (91) 93 Nasal Cannula 2.0 12/12/17 20:00 93 Nasal Cannula 4.5 12/12/17 19:12 36.4 86 24 173/83 (113) 91 BiPAP 12/12/17 19:03 84 19 Nasal Cannula 4.5 50 Lab Results: Results Past 24 Hours Test 12/13/17 06:09 Range/Units Sodium Level 137 136-145 mmol/L Potassium Level 3.7 3.5-5.1 mmol/L Chloride Level 96 98-107 mmol/L Carbon Dioxide Level 39 21-32 mmol/L Anion Gap 2.0 3-11 mmol/L Blood Urea Nitrogen 25 7-18 mg/dl Creatinine 0.86 0.60-1.40 mg/dl Est Creatinine Clear Calc Drug Dose 94.1 ml/min Estimated GFR () 106.2 Estimated GFR (Non- 91.6 BUN/Creatinine Ratio 29.6 10-20 Random Glucose 115 70-99 mg/dl Calcium Level 8.5 8.5-10.1 mg/dl Total Bilirubin 0.4 0.2-1 mg/dl Aspartate Amino Transf (AST/SGOT) 23 15-37 U/L Alanine Aminotransferase (ALT/SGPT) 24 12-78 U/L Alkaline Phosphatase 49 45-117 U/L Total Protein 5.8 6.4-8.2 gm/dl Albumin 2.4 3.4-5.0 gm/dl Globulin 3.4 2.5-4.0 gm/dl Albumin/Globulin Ratio 0.7 0.9-2
[2017-12-13] MEDS ORDERED: FUROSEMIDE INJ 40 MG in SYRINGE 0 ML IV ONE (18:00)
[2017-12-13] MEDS ORDERED: LORAZEPAM INJ 2 MG in SYRINGE 1 ML IV SCH (18:00)
[2017-12-13] MEDS ORDERED: HYDROmorphone INJ 0.5 MG/0.5 ML SYR IV STA (18:28)
--- NOTE | 2017-12-13 21:03 | Pulmonology Progress Note ---
Pulmonary Progress Note Date of Service Dec 13, 2017. Attending Dr. Guillory Subjective The patient is improving dramatically, he denies any shortness of breath at the moment, he tolerated the BiPAP and love that in fact. He has been carrying a conversation eating his meal without even using oxygen. Objective His vital signs are stable on his exam on 12/11/2017, O2 saturation is variable but he is still using 4 L of oxygen with O2 sat 92%, no stridor, scattered wheezing, S1-S2 regular rate and rhythm, edema in left upper extremity, abdomen is benign, no edema. Neurologically appears nonfocal. His data were reviewed as well which showed improvement in BUN/creatinine, no new imaging. Physical exam on 12/12/2017 revealed O2 saturation of 95% on 4 L, scattered rhonchi but no wheezing, S1-S2 regular rate and rhythm, abdomen is benign, edema in the left upper extremity, neurologically does not appear to be focal but this does have this dexterous movement in his left upper extremity. Physical exam of 12/13/2017 revealed also saturation is 95% on room air. At rest. Distant breath sounds bilaterally. Heart examination S1-S2 regular rate and rhythm, abdomen is benign, edema in the left upper extremity but much less. Assessment & Plan 1. Acute on chronic hypercapnic respiratory failure. Improving. 2. COPD, gold level 3, grade C. Stabilized on steroids. 3. Recent frontal CVA, subacute, no significant neurologic deficit except for involuntary movement of his left upper extremity, discrepancy between the head CT and the MRI was noted. Where MRI did not show any evidence of acute CVA. 4. Left upper extremity edema, from extravasation of an IV site, no evidence of DVT by ultrasound. 5. Anxiety disorder. 6. Chronic pain syndrome. 7. Pulmonary hypertension. Plan: 1. Change steroids to prednisone 60 mg p.o. daily. Taper by 10 mg every 4 days. 2. Continue with bronchodilators. 3. Maintain BiPAP 12/5 every night ongoing, arrange for BiPAP at home for trilogy. 4. Change Protonix to p.o. daily. 5. Physical therapy at rehab. 6. Unclear etiology to his left upper extremity involuntary movement. 7. Arrange for pulmonary follow-up as an outpatient. 8. Appreciate palliative care. 9. Patient can be discharged to rehab from pulmonary standpoint. Thank you for your kind referral, will follow as needed. Data Medications: Current Inpatient Medications Medications (Trade) Dose Ordered Sig/Tyree Route Start Time Stop Time Status Last Admin Dose Admin Acetaminophen (Tylenol Tab) 650 mg Q4H PRN PO 12/07/17 23:30 01/06/18 23:29 Amlodipine Besylate (Norvasc Tab) 10 mg DAILY PO 12/08/17 09:00 01/07/18 08:59 12/13/17 08:08 10 MG Diltiazem HCl (Cardizem Tab) 60 mg TID PO 12/08/17 09:00 01/07/18 08:59 12/13/17 14:16 60 MG Metoprolol Succinate (Toprol Xl Tab) 100 mg QAM PO 12/08/17 09:00 01/07/18 08:59 12/13/17 08:07 100 MG Paroxetine HCl (pAXil TAB) 20 mg DAILY PO 12/08/17 09:00 01/07/18 08:59 12/13/17 08:09 20 MG Multivitamins Therapeutic (Cerovite Liquid) 15 ml QAM PO 12/08/17 09:00 01/07/18 08:59 12/13/17 08:10 15 ML Thiamine HCl (Vitamin B-1 Tab) 100 mg QAM PO 12/08/17 09:00 01/07/18 08:59 12/13/17 08:08 100 MG Nicotine (Nicoderm Cq 14MG Patch) 1 patch QAM TD 12/08/17 09:00 01/07/18 08:59 12/09/17 08:48 1 PATCH Miscellaneous (Remove Nicoderm Patch) 1 ea HS N/A 12/08/17 21:00 01/07/18 20:59 12/12/17 20:12 1 EA Heparin Sodium (Porcine) (Heparin Sq 5000 Unit/0.5ml) 5,000 unit Q12 SQ 12/09/17 09:00 01/08/18 08:59 12/13/17 08:19 5,000 UNIT Albuterol/ Ipratropium (Duoneb) 3 ml Q4R INH 12/09/17 20:00 01/08/18 19:59 12/13/17 19:27 3 ML Aspirin (Ecotrin Tab) 325 mg QAM PO 12/10/17 09:00 01/09/18 08:59 12/13/17 08:08 325 MG Gadobutrol (Gadavist) 8.5 mmol UD PRN IV 12/12/17 10:15 12/16/17 10:14 Prednisone (PredniSONE TAB) 60 mg DAILY PO 12/12/17 14:00 01/11/18 13:59 12/13/17 08:08 60 MG Pantoprazole Sodium (Protonix Tab) 40 mg QAM PO 12/13/17 09:00 01/12/18 08:59 12/13/17 08:08 40 MG Lorazepam 2 mg/ Syringe 2 ml @ 1 mls/min TODAY@1800 IV 12/13/17 18:00 12/13/17 23:59 12/13/17 20:07 1 MLS/MIN Furosemide (Lasix Tab) 20 mg QAM PO 12/14/17 09:00 01/13/18 08:59 Hydromorphone HCl (Dilaudid Inj) 0.5 mg Q6H PRN IV 12/14/17 00:30 12/28/17 00:29 Oxycodone/ Acetaminophen (Percocet 10-325MG Tab) 1 tab Q6 PRN PO 12/13/17 18:45 12/23/17 14:14 I & O: 24-Hour Column 12/14/17 08:00 Intake Total 720 ml Output Total 450 ml Balance 270 ml Vital Signs: Date Time Temp Pulse Resp B/P (MAP) Pulse Ox O2 Delivery O2 Flow Rate FiO2 12/13/17 20:00 Nasal Cannula 4.5 12/13/17 20:00 37.3 81 20 172/78 (109) 93 Nasal Cannula 4.0 12/13/17 19:28 70 18 97 Nasal Cannula 4.5 12/13/17 16:00 Nasal Cannula 4.5 12/13/17 15:44 36.7 75 20 134/79 (97) 94 Nasal Cannula 4.0 12/13/17 15:29 71 18 96 Nasal Cannula 4.5 12/13/17 12:00 96 Nasal Cannula 4.5 50 BiPAP 12/13/17 11:21 67 18 89 Room Air 12/13/17 11:00 37.0 74 18 159/67 (97) 97 12/13/17 09:15 36.8 75 18 153/74 (100) 96 4/19/18 08:00 96 Nasal Cannula 4.5 50 BiPAP 12/13/17 06:58 67 96 50 12/13/17 06:57 67 20 96 BiPAP/CPAP 50 12/13/17 04:18 35.8 67 18 159/78 (105) 100 12/13/17 04:00 94 BiPAP 12/13/17 03:25 76 20 96 BiPAP/CPAP 50 12/13/17 03:23 76 95 50 12/13/17 00:00 94 Nasal Cannula 4.5 12/12/17 23:34 36.8 68 16 150/79 (102) 85 12/12/17 23:00 85 19 94 BiPAP/CPAP 50 Laboratory Results: Last 24 Hours Test 12/13/17 06:09 Sodium Level 137 mmol/L Potassium Level 3.7 mmol/L Chloride Level 96 mmol/L Carbon Dioxide Level 39 mmol/L Anion Gap 2.0 mmol/L Blood Urea Nitrogen 25 mg/dl Creatinine 0.86 mg/dl Est Creatinine Clear Calc Drug Dose 94.1 ml/min Estimated GFR () 106.2 Estimated GFR (Non- 91.6 BUN/Creatinine Ratio 29.6 Random Glucose 115 mg/dl Calcium Level 8.5 mg/dl Total Bilirubin 0.4 mg/dl Aspartate Amino Transf (AST/SGOT) 23 U/L Alanine Aminotransferase (ALT/SGPT) 24 U/L Alkaline Phosphatase 49 U/L Total Protein 5.8 gm/dl Albumin 2.4 gm/dl Globulin 3.4 gm/dl Albumin/Globulin Ratio 0.7
--- NOTE | 2017-12-13 23:18 | DIAGNOSTIC IMAGING REPORT ---
CERVICAL SPINE COMBO HISTORY: 62 years-old Male bilateral LE clonus, LUE bicep tricep atrophy and dysfunction chronic neck pain COMPARISON: MRI of the cervical spine of same day at 12:05 AM TECHNIQUE: Multiplanar multisequence MRI of the cervical spine was obtained both with and without the use of 8.5 mL Gadavist FINDINGS: Study is motion degraded, notably the postcontrast images. The large [id number] inventory control supervisor localizer images demonstrate no gross abnormality. Imaged posterior fossa structures are unremarkable. No cerebellar tonsillar herniation. Imaged soft tissues and thoracic structures are unremarkable. There is no bone marrow edema, acute fracture or subluxation identified. Soft tissues are unremarkable. Signal within the cervical spinal cord appears normal. There is no abnormal enhancement identified. C2-C3: Mild facet arthrosis without central canal or foraminal narrowing. C3-C4: Mild intervertebral disc space narrowing, uncovertebral spurring and mild facet arthrosis with circumferential disc bulge causing mild central canal, mild to moderate right and mild left foraminal narrowing. C4-C5: Mild facet arthrosis without significant central canal or foraminal narrowing. C5-C6: Mild intervertebral disc space narrowing, uncovertebral spurring and mild facet arthrosis with small posterior disc bulge flattening the ventral thecal sac. Motion artifact limits evaluation of the neuroforamen at this level. There is suggestion of mild left foraminal stenosis. C6-C7: Uncovertebral spurring with mild facet arthrosis. Suggestion of a small posterior disc bulge flattening the ventral thecal sac without significant central canal or foraminal narrowing identified. C7-T1: Mild facet arthrosis without central canal or foraminal narrowing. IMPRESSION: 1. Motion degraded exam. 2. At C3-C4 there is mild intervertebral disc space narrowing, uncovertebral spurring and mild facet arthrosis with circumferential annular disc bulge causing mild central canal, mild to moderate right and mild left foraminal narrowing. 3. No focal bone marrow edema or abnormal enhancement identified. The above report was generated using voice recognition software. It may contain grammatical, syntax or spelling errors. Electronically signed by: Des Olivier M.D. 12/13/2017 11:16 PM Dictated Date/Time: 12/13/2017 11:07 PM
[2017-12-14] VITALS (13 sets, daily range): BP systolic 125–161; BP diastolic 69–95; PULSE 66–82; TEMP 36.5–37; O2SAT 83–99
[2017-12-14] MEDS: HYDROmorphone INJ 0.5 MG/0.5 ML SYR IV PRN ×4 (02:35→20:12)
[2017-12-14] MEDS: ALBUT/IPRATROP 3MG/0.5MG NEB 3 ML VIAL INH SCH ×6 (02:58→23:23)
[2017-12-14] MEDS: OXYCODONE/ACETAMINOPHEN 10/325MG TAB PO PRN ×3 (03:47→16:18)
[2017-12-14 07:36] LABS: ALBUMIN 2.6 gm/dl (3.4-5.0); CALCIUM 8.2 mg/dl (8.5-10.1); CREATININE 0.88 mg/dl (0.60-1.40); POTASSIUM 3.3 mmol/L (3.5-5.1)
[2017-12-14 07:38] LABS: TOTAL PROTEIN 6.1 gm/dl (6.4-8.2)
[2017-12-14] MEDS: THIAMINE HCL 100 MG TAB PO SCH (08:10)
[2017-12-14] MEDS: PAROXETINE 20 MG TAB PO SCH (08:10)
[2017-12-14] MEDS: METOPROLOL SUCC 50MG EXT REL TAB PO SCH (08:10)
[2017-12-14] MEDS: FUROSEMIDE 20 MG TAB PO SCH (08:10)
[2017-12-14] MEDS: DILTIAZEM HCL 60 MG TAB PO SCH ×3 (08:11→20:19)
[2017-12-14] MEDS: ASPIRIN 325 MG ECTAB PO SCH (08:11)
[2017-12-14] MEDS: AMLODIPINE BESYLATE 5 MG TAB PO SCH (08:11)
[2017-12-14] MEDS: PANTOprazole SOD 40 MG TAB PO SCH (08:11)
[2017-12-14] MEDS: MULTIVITAMINS W/MINERALS 15ML UDP PO SCH (08:12)
[2017-12-14] MEDS: NICOTINE 14 MG/24 HR TDSY TD SCH (08:13)
[2017-12-14] MEDS: HEPARIN SOD 5000 UNIT/0.5 ML CARP SQ SCH ×2 (08:16→20:18)
[2017-12-14] MEDS ORDERED: POTASSIUM CHLORIDE 20 MEQ TABCR PO STA (08:41)
[2017-12-14] MEDS ORDERED: FUROSEMIDE INJ 40 MG in SYRINGE 0 ML IV ONE (12:00)
--- NOTE | 2017-12-14 16:08 | Neurology Progress Notes ---
Neurology Progress Note Date of Service Dec 14, 2017. Subjective Source: patient Iron is a 62-year-old male with PMH of advanced COPD, pulmonary hypertension, chronic bronchiectasis, diastolic heart failure, HTN, BCC, Tobacco use disorder , anxiety, depression, Joyce's esophagus who presented with worsening shortness of breath. On arrival he was minimally responsive and in severe respiratory distress on BiPAP. He had been sleeping 2-3 days prior to arrival and he has called his sister today requesting for help. He was admitted with severe respiratory acidosis and was intubated. He was told he needed a lung transplant but decided not to pursue it. Currently he is sitting bedside and complaining of a left UE weakness and groin pain. denies CP, N, V, abdominal pain, +SOB on NC 02. Objective Date Time Temp Pulse Resp B/P (MAP) Pulse Ox O2 Delivery O2 Flow Rate FiO2 12/14/17 15:39 36.6 73 16 128/69 (88) 95 Room Air 12/14/17 12:09 36.6 82 22 138/78 (98) 85 Room Air 12/14/17 12:00 Nasal Cannula 4.5 12/14/17 11:20 72 18 83 Room Air 12/14/17 08:00 Nasal Cannula 4.5 12/14/17 07:48 36.5 67 20 161/95 (117) 98 Room Air 12/14/17 07:29 72 18 95 Nasal Cannula 4.5 12/14/17 04:19 37.0 69 18 147/86 (106) 93 12/14/17 04:00 Nasal Cannula 4.5 12/14/17 00:11 36.6 81 18 138/70 (92) 95 12/14/17 00:01 Nasal Cannula 4.5 12/13/17 22:03 Nasal Cannula 4.5 12/13/17 20:00 Nasal Cannula 4.5 12/13/17 20:00 37.3 81 20 172/78 (109) 93 Nasal Cannula 4.0 12/13/17 19:28 70 18 97 Nasal Cannula 4.5 12/13/17 16:00 Nasal Cannula 4.5 Last 24 Hours Test 12/14/17 06:46 12/14/17 14:18 Sodium Level 135 mmol/L Potassium Level 3.3 mmol/L 3.7 mmol/L Chloride Level 93 mmol/L Carbon Dioxide Level 40 mmol/L Anion Gap 2.0 mmol/L Blood Urea Nitrogen 23 mg/dl Creatinine 0.88 mg/dl Est Creatinine Clear Calc Drug Dose 92.4 ml/min Estimated GFR () 105.2 Estimated GFR (Non- 90.8 BUN/Creatinine Ratio 26.0 Random Glucose 107 mg/dl Calcium Level 8.2 mg/dl Total Bilirubin 0.2 mg/dl Aspartate Amino Transf (AST/SGOT) 23 U/L Alanine Aminotransferase (ALT/SGPT) 25 U/L Alkaline Phosphatase 53 U/L Total Protein 6.1 gm/dl Albumin 2.6 gm/dl Globulin 3.5 gm/dl Albumin/Globulin Ratio 0.7 Arterial Blood pH 7.44 Arterial Blood Partial Pressure CO2 55 mmHg Arterial Blood Partial Pressure O2 56 mm/Hg Arterial Blood HCO3 37 mmol/L Arterial Blood Oxygen Saturation 86.5 % Arterial Blood Base Excess 11.2 mEq/L Arterial Blood Gas Delivery ROOM AIR Carmelo Test POS Imaging: MRI c spine with and without- Motion degraded exam. At C3-C4 there is mild intervertebral disc space narrowing, uncovertebral spurring and mild facet arthrosis with circumferential annular disc bulge causing mild central canal, mild to moderate right and mild left foraminal narrowing. No focal bone marrow edema or abnormal enhancement identified. Exam: Gen: alert NAD lungs course breath sounds CV RRR left UE increase flex ext wrist and mobility with fine motor skills Current Inpatient Medications Medications (Trade) Dose Ordered Sig/Tyree Route Start Time Stop Time Status Last Admin Dose Admin Acetaminophen (Tylenol Tab) 650 mg Q4H PRN PO 12/07/17 23:30 01/06/18 23:29 Amlodipine Besylate (Norvasc Tab) 10 mg DAILY PO 12/08/17 09:00 01/07/18 08:59 12/14/17 08:11 10 MG Diltiazem HCl (Cardizem Tab) 60 mg TID PO 12/08/17 09:00 01/07/18 08:59 12/14/17 14:30 60 MG Metoprolol Succinate (Toprol Xl Tab) 100 mg QAM PO 12/08/17 09:00 01/07/18 08:59 12/14/17 08:10 100 MG Paroxetine HCl (pAXil TAB) 20 mg DAILY PO 12/08/17 09:00 5/14/18 08:59 12/14/17 08:10 20 MG Multivitamins Therapeutic (Cerovite Liquid) 15 ml QAM PO 12/08/17 09:00 01/07/18 08:59 12/14/17 08:12 15 ML Thiamine HCl (Vitamin B-1 Tab) 100 mg QAM PO 12/08/17 09:00 01/07/18 08:59 12/14/17 08:10 100 MG Nicotine (Nicoderm Cq 14MG Patch) 1 patch QAM TD 12/08/17 09:00 01/07/18 08:59 12/09/17 08:48 1 PATCH Miscellaneous (Remove Nicoderm Patch) 1 ea HS N/A 12/08/17 21:00 01/07/18 20:59 12/12/17 20:12 1 EA Heparin Sodium (Porcine) (Heparin Sq 5000 Unit/0.5ml) 5,000 unit Q12 SQ 12/09/17 09:00 01/08/18 08:59 12/14/17 08:16 5,000 UNIT Albuterol/ Ipratropium (Duoneb) 3 ml Q4R INH 12/09/17 20:00 01/08/18 19:59 12/14/17 11:20 3 ML Aspirin (Ecotrin Tab) 325 mg QAM PO 12/10/17 09:00 01/09/18 08:59 12/14/17 08:11 325 MG Gadobutrol (Gadavist) 8.5 mmol UD PRN IV 12/12/17 10:15 12/16/17 10:14 Prednisone (PredniSONE TAB) 60 mg DAILY PO 12/12/17 14:00 01/11/18 13:59 12/14/17 08:10 60 MG Pantoprazole Sodium (Protonix Tab) 40 mg QAM PO 12/13/17 09:00 01/12/18 08:59 12/14/17 08:11 40 MG Furosemide (Lasix Tab) 20 mg QAM PO 12/14/17 09:00 01/13/18 08:59 12/14/17 08:10 20 MG Hydromorphone HCl (Dilaudid Inj) 0.5 mg Q6H PRN IV 12/14/17 00:30 12/28/17 00:29 12/14/17 14:30 0.5 MG Oxycodone/ Acetaminophen (Percocet 10-325MG Tab) 1 tab Q6 PRN PO 12/13/17 18:45 12/23/17 14:14 12/14/17 09:45 1 TAB Impression 62 year old male with acute respiratory failure and intubated, now extubated with left UE/right LE weakness. Plan 1. MRI with no evidence of ischemic event- 2. right LE appear to be related to groin pain 3. positive for marijuana and EtOH 3.0 on admission currently receiving thiamine 4. Left UE weakness, edema IV infiltrate? local trauma fall? atrophy left UE favors chronic neck issues 5. PT/OT for discharge needs 6. palliative medicine for medication management 7. fall risk 8. pulmonary with no new recommendations 9. TTE no PFO 10. MRI cspine- unable to tolerate for good images. patient willing to try again tonight if he can get his 2000 pain meds and the ativan prior to going to the scanner. re scanned no C spine etiology to account for left arm issues will see back in neurology in 2-3 weeks for follow up EMG with Dr Rahul Mccloud, or Dr Clare Shin. I have seen and discussed above patient with Dr Rahul Mccloud, neurology Patient seen and brain and cervical spine imaging reviewed along with exam he is better with much improved left arm function and nearly normal facility of rapid movements today and modest global weaknes worse proximally there is no imaging supprot for a cva or a cord lesion and the deficits would not be explicable on a single root level but a compression of the brachial plexus cannot be excluded an could be assess on outpatient basis with an emg in about four weeks if he fails get back to his baseline The right leg is better and exam show at most en equivocal right toe sign today so the cause of its weakness also remains of uncertain cause but is significantly better I will check back tomorrow and through the weekend Rahul Mccloud MD
--- NOTE | 2017-12-14 18:03 | Progress Note ---
Internal Med Progress Note Date of Service: Dec 14, 2017. Provider Documentation: Subjective: Patient was seen and examined at bedside. Patient received additional IV Lasix today in additional IV Lasix to the oral Lasix to reduce the swelling. His breathing is better as he is seen ambulating on room air in the hallways with walker. Physical Exam General: no acute distress Neck-No JVD Lungs-fair air entry bilaterally, no use of accessory muscles, ambulates on room air Heart-S1 and S2 heard regular rhythm no murmurs Abdomen-soft Bowels sounds present no distension Extremities- bilateral lower extremity swelling Neuro-alert and awake, moves extremities with weakness of left upper extremity which has swelling of the hands ASSESSMENT & PLAN: Assessment and Plan: Acute on chronic hypercapnic respiratory failure / COPD, gold level 3, grade C / Pulmonary hypertension. - s/p intubation and extubation on this admission - prednisone 60 mg p.o. daily and Taper by 10 mg every 4 days as per pulmonary service - Continue with bronchodilators. - Maintain BiPAP 12/5 every night ongoing until the patient had sleep study at home when he discharged. - Nocturnal pulse oximetry test ordered Chronic diastolic heart failure: Secondary to pulmonary hypertension and cor pulmonale -left upper extremity swelling when in the ICU possible due to IV infiltrate -Left venous upper extremity ultrasound 12/11/17: FINDINGS: There is normal flow , compressibility, phasicity and augmentation of the left upper extremity deep venous structures. Mild edema of the upper extremity. IMPRESSION: No sonographic evidence of deep venous thrombosis. -ultrasound bilateral lower extremities 12/13/17:Calf vessels were suboptimally visualized due to the lower extremity edema. No DVT within the visualized right or left lower extremity -patient to be transitioned from IV Lasix and oral Lasix to oral Lasix alone , potassium replete while on diuretics Head CT concerning for stroke but normal MRI / Left upper extremity edema and weakness -Head CT 12/09/17: Subtle hypoattenuation of the cristobal matter at the right frontal vertex, concerning for acute ischemia -No sonographic evidence of deep venous thrombosis on ultrasound 12/11/17 -neurology consultation requested on 12/12/17 -Brain MRI 12/12/17: 1. Motion degraded exam without acute intracranial abnormality identified. No evidence of acute or subacute infarction or abnormal enhancement. 2. Mild atrophy. 3. Mild maxillary and moderate ethmoid sinus disease. 4. Moderate bilateral mastoid effusions - Cervical Spine MRI 12/12/17 1. Very limited study from a technical standpoint 2. No evidence of pathologic marrow replacement. 3. No expansile cord lesions are visualized - a repeat cervical spine MRI 12/13/17: 1. Motion degraded exam. 2. At C3-C4 there is mild intervertebral disc space narrowing, uncovertebral spurring and mild facet arthrosis with circumferential annular disc bulge causing mild central canal, mild to moderate right and mild left foraminal narrowing. 3. No focal bone marrow edema or abnormal enhancement identified. GABY resolved HTN: on diltiazem and metoprolol Anxiety disorder: Paxil Chronic pain syndrome: on narcotics Alcohol use disorder: Thiamine, folic acid Tobacco use disorder: Nicotine patch Joyce's esophagus: PPI DVT ppx:Lovenox Physical Therapy: recommend return home with O2 and home health assist prn Disposition: Patient received IV Lasix recently to optimize fluid management due to swelling of extremities but is walking while on room air. BIPAP set up being arranged. Expect discharge to home tomorrow Patient will benefit from following with outpatient primary care doctor, Marco Little pulmonary doctor (or alternate refueling ramp attendant), neurology Vital Signs: Date Time Temp Pulse Resp B/P (MAP) Pulse Ox O2 Delivery O2 Flow Rate FiO2 12/14/17 16:40 73 18 85 Room Air 12/14/17 16:00 Nasal Cannula 4.5 12/14/17 15:39 36.6 73 16 128/69 (88) 95 Room Air 12/14/17 12:09 36.6 82 22 138/78 (98) 85 Room Air 12/14/17 12:00 Nasal Cannula 4.5 12/14/17 11:20 72 18 83 Room Air 12/14/17 08:00 Nasal Cannula 4.5 12/14/17 07:48 36.5 67 20 161/95 (117) 98 Room Air 12/14/17 07:29 72 18 95 Nasal Cannula 4.5 12/14/17 04:19 37.0 69 18 147/86 (106) 93 12/14/17 04:00 Nasal Cannula 4.5 12/14/17 00:11 36.6 81 18 138/70 (92) 95 12/14/17 00:01 Nasal Cannula 4.5 12/13/17 22:03 Nasal Cannula 4.5 12/13/17 20:00 Nasal Cannula 4.5 12/13/17 20:00 37.3 81 20 172/78 (109) 93 Nasal Cannula 4.0 12/13/17 19:28 70 18 97 Nasal Cannula 4.5 Lab Results: Results Past 24 Hours Test 12/14/17 06:46 12/14/17 14:18 Range/Units Sodium Level 135 136-145 mmol/L Potassium Level 3.3 3.7 3.5-5.1 mmol/L Chloride Level 93 98-107 mmol/L Carbon Dioxide Level 40 21-32 mmol/L Anion Gap 2.0 3-11 mmol/L Blood Urea Nitrogen 23 7-18 mg/dl Creatinine 0.88 0.60-1.40 mg/dl Est Creatinine Clear Calc Drug Dose 92.4 ml/min Estimated GFR () 105.2 Estimated GFR (Non- 90.8 BUN/Creatinine Ratio 26.0 10-20 Random Glucose 107 70-99 mg/dl Calcium Level 8.2 8.5-10.1 mg/dl Total Bilirubin 0.2 0.2-1 mg/dl Aspartate Amino Transf (AST/SGOT) 23 15-37 U/L Alanine Aminotransferase (ALT/SGPT) 25 12-78 U/L Alkaline Phosphatase 53 45-117 U/L Total Protein 6.1 6.4-8.2 gm/dl Albumin 2.6 3.4-5.0 gm/dl Globulin 3.5 2.5-4.0 gm/dl Albumin/Globulin Ratio 0.7 0.9-2 Arterial Blood pH 7.44 7.35-7.45 Arterial Blood Partial Pressure CO2 55 35-46 mmHg Arterial Blood Partial Pressure O2 56 80-95 mm/Hg Arterial Blood HCO3 37 19-24 mmol/L Arterial Blood Oxygen Saturation 86.5 90-95 % Arterial Blood Base Excess 11.2 -9-1.8 mEq/L Arterial Blood Gas Delivery ROOM AIR Carmelo Test POS POS
[2017-12-15] VITALS (18 sets, daily range): BP systolic 107–144; BP diastolic 63–85; PULSE 59–84; TEMP 36.3–37; O2SAT 80–99
[2017-12-15] MEDS: OXYCODONE/ACETAMINOPHEN 10/325MG TAB PO PRN ×4 (00:43→18:25)
[2017-12-15] MEDS: HYDROmorphone INJ 0.5 MG/0.5 ML SYR IV PRN ×4 (02:24→20:32)
[2017-12-15] MEDS: ALBUT/IPRATROP 3MG/0.5MG NEB 3 ML VIAL INH SCH ×6 (03:15→22:44)
[2017-12-15 07:15] LABS: ALBUMIN 2.6 gm/dl (3.4-5.0); CALCIUM 8.2 mg/dl (8.5-10.1); CREATININE 0.92 mg/dl (0.60-1.40); POTASSIUM 2.8 mmol/L (3.5-5.1)
[2017-12-15 07:34] LABS: TOTAL PROTEIN 5.8 gm/dl (6.4-8.2)
[2017-12-15] MEDS ORDERED: POTASSIUM CHLORIDE 20 MEQ TABCR PO STA (07:34)
[2017-12-15] MEDS: PANTOprazole SOD 40 MG TAB PO SCH (08:33)
[2017-12-15] MEDS: THIAMINE HCL 100 MG TAB PO SCH (08:33)
[2017-12-15] MEDS: FUROSEMIDE 20 MG TAB PO SCH (08:33)
[2017-12-15] MEDS: POTASSIUM CHLR 10 MEQ / WTR 100 ML IV SCH ×4 (08:33→12:19)
[2017-12-15] MEDS: ASPIRIN 325 MG ECTAB PO SCH (08:33)
[2017-12-15] MEDS: DILTIAZEM HCL 60 MG TAB PO SCH ×3 (08:33→20:33)
[2017-12-15] MEDS: METOPROLOL SUCC 50MG EXT REL TAB PO SCH (08:33)
[2017-12-15] MEDS: AMLODIPINE BESYLATE 5 MG TAB PO SCH (08:34)
[2017-12-15] MEDS: PAROXETINE 20 MG TAB PO SCH (08:34)
[2017-12-15] MEDS: MULTIVITAMINS W/MINERALS 15ML UDP PO SCH (08:34)
[2017-12-15] MEDS: NICOTINE 14 MG/24 HR TDSY TD SCH (08:35)
[2017-12-15] MEDS: HEPARIN SOD 5000 UNIT/0.5 ML CARP SQ SCH ×2 (08:37→20:32)
[2017-12-15] MEDS: MAGNESIUM SULFATE 1GM / D5W 100 ML IV SCH ×4 (09:34→13:31)
--- NOTE | 2017-12-15 13:03 | PROGRESS NOTE ---
DATE: 12/15/2017 Iron was seen today. He does not feel his left arm is signifiantly better, although it had been improving as of yesterday. His legs are about the same. They feel a little clumsy and stiff but they are not particularly numb and the arm is diffusely numb, painful and invariably weak. His imaging studies really have not helped much. There is no evidence for an acute infarct. His cervical cord looks normal. There is some mid cervical degenerative disc disease but the global nature of the arm weakness would be ill explained on the basis of a single left cervical motor radiculopathy and one wonders if this is not either an upper motor neuron lesion that were not seen on imaging studies or a left brachial plexopathy perhaps due to some traction during his stuporous condition. Certainly the weakness of the proximal muscles in the biceps and deltoid area, there is variable degree of forearm weakness, particularly in the wrist extensors and hand muscles are a little weak too but is less than optimal voluntary effort and a lot of this is related to pain and the arm is very sensitive to touch in a nondermatomal distribution and there is some edema. Again, I am not sure we are going to find an explanation for this during the current hospitalization. I think this is going to require an outpatient EMG. I suppose one could do a brachial plexus MRI just to be certain there is no hematoma or other lesion involving the plexus at this point. I am going to wait and see how things go and I may order brachial plexus MRI tomorrow or to be done on Sunday as I think this man is clearly going to stay in the hospital now for a few more days until all of his pulmonary needs are met and he adjust the CPAP machine, etc. I will check with him again tomorrow. MAYA
[2017-12-15 16:02] LABS: ALBUMIN 2.7 gm/dl (3.4-5.0)
--- NOTE | 2017-12-15 17:17 | Progress Note ---
Internal Med Progress Note Date of Service: Dec 15, 2017. Provider Documentation: Subjective: Patient expressed concerns about left arm weakness and for that reason he has been unhappy about the care at the hospital. Hospitalist medicine physician have asked PT and OT to assess his concerns as well neurology follow up. Subsequently patient more at ease. Patient reports problems with the BIPAP set up at home and reports that it won't be ready until Sunday12/17/17. Patient's electrolyte deficiencies of hypomagnesemia and hypokalemia was corrected with electrolyte supplements of IV magnesium and IV / oral potassium Physical Exam General: no acute distress Neck-No JVD Lungs-fair air entry bilaterally, no use of accessory muscles, ambulates on room air Heart-S1 and S2 heard regular rhythm no murmurs Abdomen-soft Bowels sounds present no distension Extremities- bilateral lower extremity swelling improving, but still present, left upper extremity which has swelling of the hands resolving Neuro-alert and awake, moves extremities with weakness of left upper extremity, ASSESSMENT & PLAN: Assessment and Plan: Acute on chronic hypercapnic respiratory failure / COPD, gold level 3, grade C / Pulmonary hypertension. - s/p intubation and extubation on this admission - prednisone with taper - Continue with bronchodilators. - Maintain BiPAP 12/5 every night ongoing until the patient had sleep study at home when he discharged. Chronic diastolic heart failure: Secondary to pulmonary hypertension and cor pulmonale -left upper extremity swelling when in the ICU possible due to IV infiltrate -Left venous upper extremity ultrasound 12/11/17: FINDINGS: There is normal flow , compressibility, phasicity and augmentation of the left upper extremity deep venous structures. Mild edema of the upper extremity. IMPRESSION: No sonographic evidence of deep venous thrombosis. -ultrasound bilateral lower extremities 12/13/17:Calf vessels were suboptimally visualized due to the lower extremity edema. No DVT within the visualized right or left lower extremity -patient to be transitioned from IV Lasix and oral Lasix to oral Lasix alone -hypokalemic serum potassium 2.8 and hypomagenesmia serum magnesium 1.6 on AM labs, electrolytes replated with IV magnesium and IV/PO potassium as now labs show potassium of 4 and magnesium 2.6 in after noon of 12/15/[address] concerning for stroke but normal MRI / Left upper extremity edema and weakness -Head CT 12/09/17: Subtle hypoattenuation of the cristobal matter at the right frontal vertex, concerning for acute ischemia -No sonographic evidence of deep venous thrombosis on ultrasound 12/11/17 -neurology consultation requested on 12/12/17 -Brain MRI 12/12/17: 1. Motion degraded exam without acute intracranial abnormality identified. No evidence of acute or subacute infarction or abnormal enhancement. 2. Mild atrophy. 3. Mild maxillary and moderate ethmoid sinus disease. 4. Moderate bilateral mastoid effusions - Cervical Spine MRI 12/12/17 1. Very limited study from a technical standpoint 2. No evidence of pathologic marrow replacement. 3. No expansile cord lesions are visualized - a repeat cervical spine MRI 12/13/17: 1. Motion degraded exam. 2. At C3-C4 there is mild intervertebral disc space narrowing, uncovertebral spurring and mild facet arthrosis with circumferential annular disc bulge causing mild central canal, mild to moderate right and mild left foraminal narrowing. 3. No focal bone marrow edema or abnormal enhancement identified. -Neurology notes 12/15/17: neurology considering outpatient EMG vs brachial plexus MRI GABY resolved HTN: on diltiazem and metoprolol Anxiety disorder: Paxil Chronic pain syndrome: on narcotics Alcohol use disorder: Thiamine, folic acid Tobacco use disorder: Nicotine patch Joyce's esophagus: PPI DVT ppx:Lovenox Physical Therapy: recommend return home with O2 and home health assist prn Disposition: remains inpatient From a respiratory point of view, patient has made great improvements as he is ambulating on room air from initially being intubated in the ICU Patient still has edema of lower extremities and after IV Lasix doses from yesterday had hypokalemia and hypomagnesemia on today's AM labs, that has been corrected with supplementation Will continue oral Lasix for now and monitor edema and labs What will be important is the BIPAP set up for home, will need to check with housing case manager tomorrow on BIPAP set up status, as this will be important in helping patient's respiratory health and hopefully prevent hospital re- admission although patient at baseline has poor cardiac-respiratory health co- morbidities. Despite improvements with breathing patient is frustrated about the continual relative weakness of left arm, he is being followed by inpatient PT/OT/and neurology services. Patient will benefit from following with outpatient primary care doctor 2017 10:40 AM Zach Monroy MDFamily Practice [facility], neurology 01/18/2018 1:00 PM Clare Shin MDNeurology [facility] pulmonary doctor (or alternate pressure supervisor) Vital Signs: Date Time Temp Pulse Resp B/P (MAP) Pulse Ox O2 Delivery O2 Flow Rate FiO2 12/15/17 16:23 83 93 BiPAP 12/15/17 16:00 80 Room Air 12/15/17 15:42 36.3 69 24 107/63 (78) 80 Room Air 12/15/17 15:28 82 18 94 BiPAP/CPAP 40 12/15/17 15:28 82 94 40 12/15/17 12:28 36.7 74 20 122/68 (86) 85 Room Air 12/15/17 12:00 Nasal Cannula 4.0 12/15/17 11:13 76 18 93 BiPAP/CPAP 40 12/15/17 11:13 76 93 40 12/15/17 08:00 Nasal Cannula 4.0 12/15/17 07:42 36.6 70 24 129/69 (89) 90 Room Air 12/15/17 07:08 70 96 40 12/15/17 07:06 70 18 96 BiPAP/CPAP 40 12/15/17 04:00 36.4 77 22 144/79 (100) 99 BiPAP 12/15/17 04:00 Nasal Cannula 4.0 12/15/17 03:15 68 18 96 BiPAP/CPAP 40 12/15/17 00:04 37.0 59 22 138/85 (102) 97 BiPAP 12/14/17 23:59 Nasal Cannula 4.0 12/14/17 23:23 69 14 96 BiPAP/CPAP 40 12/14/17 23:23 69 96 40 12/14/17 22:22 82 99 50 12/14/17 20:00 Nasal Cannula 4.0 12/14/17 19:26 66 99 50 12/14/17 19:11 36.9 78 18 125/74 (91) 94 BiPAP Lab Results: Results Past 24 Hours Test 12/15/17 06:25 12/15/17 15:24 Range/Units Sodium Level 136 131 136-145 mmol/L Potassium Level 2.8 4.0 3.5-5.1 mmol/L Chloride Level 92 91 98-107 mmol/L Carbon Dioxide Level 38 35 21-32 mmol/L Anion Gap 6.0 5.0 3-11 mmol/L Blood Urea Nitrogen 24 26 7-18 mg/dl Creatinine 0.92 1.00 0.60-1.40 mg/dl Est Creatinine Clear Calc Drug Dose 88.4 81.3 ml/min Estimated GFR () 101.5 91.8 Estimated GFR (Non- 87.6 79.2 BUN/Creatinine Ratio 26.3 25.8 10-20 Random Glucose 85 175 70-99 mg/dl Calcium Level 8.2 8.0 8.5-10.1 mg/dl Magnesium Level 1.6 2.6 1.8-2.4 mg/dl Total Bilirubin 0.3 0.3 0.2-1 mg/dl Aspartate Amino Transf (AST/SGOT) 19 19 15-37 U/L Alanine Aminotransferase (ALT/SGPT) 26 26 12-78 U/L Alkaline Phosphatase 53 55 45-117 U/L Total Protein 5.8 6.0 6.4-8.2 gm/dl Albumin 2.6 2.7 3.4-5.0 gm/dl Globulin 3.2 3.3 2.5-4.0 gm/dl Albumin/Globulin Ratio 0.8 0.8 0.9-2
[2017-12-15] MEDS ORDERED: NURSING VERBAL MED ORDER ONE (23:15)
[2017-12-16] VITALS (14 sets, daily range): BP systolic 105–134; BP diastolic 56–88; PULSE 68–84; TEMP 36.4–36.7; O2SAT 90–98
[2017-12-16] MEDS: ALBUT/IPRATROP 3MG/0.5MG NEB 3 ML VIAL INH SCH ×7 (00:07→23:09)
[2017-12-16] MEDS: OXYCODONE/ACETAMINOPHEN 10/325MG TAB PO PRN ×4 (00:34→19:41)
[2017-12-16] MEDS: HYDROmorphone INJ 0.5 MG/0.5 ML SYR IV PRN ×4 (02:23→20:23)
[2017-12-16] MEDS: FUROSEMIDE 40 MG TAB PO SCH ×2 (08:42→17:08)
[2017-12-16] MEDS: METOPROLOL SUCC 50MG EXT REL TAB PO SCH (08:42)
[2017-12-16] MEDS: THIAMINE HCL 100 MG TAB PO SCH (08:42)
[2017-12-16] MEDS: DILTIAZEM HCL 60 MG TAB PO SCH ×3 (08:43→20:27)
[2017-12-16] MEDS: AMLODIPINE BESYLATE 5 MG TAB PO SCH (08:43)
[2017-12-16] MEDS: PANTOprazole SOD 40 MG TAB PO SCH (08:44)
[2017-12-16] MEDS: PAROXETINE 20 MG TAB PO SCH (08:44)
[2017-12-16] MEDS: ASPIRIN 325 MG ECTAB PO SCH (08:44)
[2017-12-16] MEDS: MULTIVITAMINS W/MINERALS 15ML UDP PO SCH (08:45)
[2017-12-16] MEDS: HEPARIN SOD 5000 UNIT/0.5 ML CARP SQ SCH ×2 (08:49→20:28)
[2017-12-16 09:04] LABS: ALBUMIN 2.5 gm/dl (3.4-5.0); CALCIUM 8.1 mg/dl (8.5-10.1); CREATININE 0.8 mg/dl (0.60-1.40); POTASSIUM 3.4 mmol/L (3.5-5.1); TOTAL PROTEIN 5.7 gm/dl (6.4-8.2)
[2017-12-16] MEDS ORDERED: POTASSIUM CHLORIDE 20 MEQ TABCR PO STA (09:19)
--- NOTE | 2017-12-16 11:32 | DIAGNOSTIC IMAGING REPORT ---
L SHOULDER MIN 2 VIEWS ROUTINE CLINICAL HISTORY: left shoulder pain COMPARISON: None. DISCUSSION: The bones and joint spaces appear intact. There is no evidence of fracture, dislocation or bony disease. There is no evidence for soft tissue swelling. IMPRESSION: Negative study. The above report was generated using voice recognition software. It may contain grammatical, syntax or spelling errors. Electronically signed by: Raman Julio M.D. 12/16/2017 11:31 AM Dictated Date/Time: 12/16/2017 11:30 AM
--- NOTE | 2017-12-16 11:57 | PROGRESS NOTE ---
DATE: 12/16/2017 Iron looks about the same today. He is actually moving his fingers in a much more facile fashion and individual group testing of the arm reveals intact function and strength in all groups but there is quite a bit of pain diffusely through the arm at the wrist, the elbow and the shoulder. The latter joint really cannot move either actively or passively due to the pain. 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 He needs to have a shoulder x-ray done at a minimum and I wonder if orthopedics needs to get involved with us to assess the potential of a rotator cuff tear or other major intraarticular issue in the left shoulder. I will start with the x-ray today and will go from there. I was going to get an MRI of the brachial plexus, but he really needs presedation to get in the MRI machine and I would like orthopedic's opinion regarding whether this is a lara choice of diagnostic studies or not before ordering it. I will check with him tomorrow. MAYA
--- NOTE | 2017-12-16 15:21 | Progress Note ---
Internal Med Progress Note Date of Service: Dec 16, 2017. Provider Documentation: Subjective: Patient denies worsening shortness of breath. The lower extremity swelling is still substantial. Patient concerned about left arm. Patient had shoulder X ray that was negative. Neurology still following the patient for patient's left arm. Neurology recommends orthopedic consultation. Patient explained that he is to get more diuresis and continued follow up of left arm. Patient expresses agreement. commercial loan manager also working with the company that provides the BIPAP for patient's house. Physical Exam General: no acute distress Neck-No JVD Lungs-fair air entry bilaterally, no use of accessory muscles, ambulates on room air Heart-S1 and S2 heard regular rhythm no murmurs Abdomen-soft Bowels sounds present no distension Extremities- bilateral lower extremity swelling improving, but still present, left upper extremity which has swelling of the hands resolving Neuro-alert and awake, moves extremities with weakness of left upper extremity, ASSESSMENT & PLAN: Assessment and Plan: Acute on chronic hypercapnic respiratory failure / COPD, gold level 3, grade C / Pulmonary hypertension. - s/p intubation and extubation on this admission - prednisone with taper - Continue with bronchodilators. - Maintain BiPAP 12/5 every night ongoing until the patient had sleep study at home when he discharged. Chronic diastolic heart failure: Secondary to pulmonary hypertension and cor pulmonale -left upper extremity swelling when in the ICU possible due to IV infiltrate -Left venous upper extremity ultrasound 12/11/17: FINDINGS: There is normal flow , compressibility, phasicity and augmentation of the left upper extremity deep venous structures. Mild edema of the upper extremity. IMPRESSION: No sonographic evidence of deep venous thrombosis. -ultrasound bilateral lower extremities 12/13/17:Calf vessels were suboptimally visualized due to the lower extremity edema. No DVT within the visualized right or left lower extremity -patient to be transitioned from IV Lasix and oral Lasix to oral Lasix alone -hypokalemic serum potassium 2.8 and hypomagenesmia serum magnesium 1.6 on AM labs, electrolytes replated with IV magnesium and IV/PO potassium as now labs show potassium of 4 and magnesium 2.6 in after noon of 12/15/17 -patient's lower extremity swelling is still substantial. Will give oral lasix BID instead of IV in hopes that this would diuresis the legs without large decreases in serum potassium and serum magnesium Head CT concerning for stroke but normal MRI / Left upper extremity edema and weakness -Head CT 12/09/17: Subtle hypoattenuation of the cristobal matter at the right frontal vertex, concerning for acute ischemia -No sonographic evidence of deep venous thrombosis on ultrasound 12/11/17 -neurology consultation requested on 12/12/17 -Brain MRI 12/12/17: 1. Motion degraded exam without acute intracranial abnormality identified. No evidence of acute or subacute infarction or abnormal enhancement. 2. Mild atrophy. 3. Mild maxillary and moderate ethmoid sinus disease. 4. Moderate bilateral mastoid effusions - Cervical Spine MRI 12/12/17 1. Very limited study from a technical standpoint 2. No evidence of pathologic marrow replacement. 3. No expansile cord lesions are visualized - a repeat cervical spine MRI 12/13/17: 1. Motion degraded exam. 2. At C3-C4 there is mild intervertebral disc space narrowing, uncovertebral spurring and mild facet arthrosis with circumferential annular disc bulge causing mild central canal, mild to moderate right and mild left foraminal narrowing. 3. No focal bone marrow edema or abnormal enhancement identified. -Neurology notes 12/16/17 ordered a left shoulder X ray that was negative and recommends orthopedic consultation of the left arm GABY resolved HTN: on diltiazem and metoprolol Anxiety disorder: Paxil Chronic pain syndrome: on narcotics Alcohol use disorder: Thiamine, folic acid Tobacco use disorder: Nicotine patch Joyce's esophagus: PPI DVT ppx:Lovenox Physical Therapy: recommend return home with O2 and home health assist prn Disposition: remains inpatient. The lower extremity swelling is still substantial. Patient concerned about left arm. Patient had shoulder X ray that was negative. Neurology still following the patient for patient's left arm. Neurology recommends orthopedic consultation. Patient explained that he is to get more diuresis and continued follow up of left arm. Patient expresses agreement. commercial loan manager also working with the company that provides the BIPAP for patient's house. Patient will benefit from following with outpatient primary care doctor 2017 10:40 AM [facility], neurology 01/18/2018 1:00 PM Clare Shin MD Neurology [facility] pulmonary doctor (or alternate aoc director combat plans officer) Vital Signs: Date Time Temp Pulse Resp B/P (MAP) Pulse Ox O2 Delivery O2 Flow Rate FiO2 12/16/17 12:13 36.7 77 22 128/70 (89) 97 4.0 12/16/17 12:00 Nasal Cannula 4.0 12/16/17 11:32 74 18 96 Nasal Cannula 4.0 12/16/17 08:00 Nasal Cannula 4.0 12/16/17 07:42 36.4 75 20 105/88 (94) 97 5.0 12/16/17 07:23 72 18 90 Room Air 12/16/17 04:53 36.5 80 20 119/62 (81) 97 Nasal Cannula 5.0 12/16/17 04:00 Nasal Cannula 5.0 BiPAP 12/16/17 03:35 68 18 98 Nasal Cannula 5.0 12/16/17 00:31 36.6 81 20 134/75 (94) 96 Nasal Cannula 5.0 12/16/17 00:07 84 18 96 BiPAP/CPAP 30 12/16/17 00:00 Nasal Cannula 5.0 BiPAP 12/15/17 22:06 84 98 40 12/15/17 20:00 97 Nasal Cannula 4.0 12/15/17 19:35 67 18 97 Nasal Cannula 5.0 12/15/17 18:57 36.6 69 18 128/65 (86) 97 Nasal Cannula 6.0 12/15/17 18:42 67 99 40 12/15/17 16:23 83 93 BiPAP 12/15/17 16:00 80 Room Air 12/15/17 15:42 36.3 69 24 107/63 (78) 80 Room Air 12/15/17 15:28 82 18 94 BiPAP/CPAP 40 12/15/17 15:28 82 94 40 Lab Results: Results Past 24 Hours Test 12/15/17 15:24 12/16/17 08:24 Range/Units Sodium Level 131 137 136-145 mmol/L Potassium Level 4.0 3.4 3.5-5.1 mmol/L Chloride Level 91 97 98-107 mmol/L Carbon Dioxide Level 35 33 21-32 mmol/L Anion Gap 5.0 7.0 3-11 mmol/L Blood Urea Nitrogen 26 24 7-18 mg/dl Creatinine 1.00 0.80 0.60-1.40 mg/dl Est Creatinine Clear Calc Drug Dose 81.3 102.1 ml/min Estimated GFR () 91.8 109.4 Estimated GFR (Non- 79.2 94.4 BUN/Creatinine Ratio 25.8 29.6 10-20 Random Glucose 175 118 70-99 mg/dl Calcium Level 8.0 8.1 8.5-10.1 mg/dl Magnesium Level 2.6 2.2 1.8-2.4 mg/dl Total Bilirubin 0.3 0.2 0.2-1 mg/dl Aspartate Amino Transf (AST/SGOT) 19 14 15-37 U/L Alanine Aminotransferase (ALT/SGPT) 26 21 12-78 U/L Alkaline Phosphatase 55 62 45-117 U/L Total Protein 6.0 5.7 6.4-8.2 gm/dl Albumin 2.7 2.5 3.4-5.0 gm/dl Globulin 3.3 3.2 2.5-4.0 gm/dl Albumin/Globulin Ratio 0.8 0.8 0.9-2
[2017-12-16] MEDS ORDERED: LORAZEPAM 0.5 MG TAB PO ONE (21:45)
[2017-12-17] VITALS (12 sets, daily range): BP systolic 100–138; BP diastolic 60–77; PULSE 71–89; TEMP 36.4–37.2; O2SAT 90–100
[2017-12-17] MEDS: OXYCODONE/ACETAMINOPHEN 10/325MG TAB PO PRN ×4 (01:54→19:43)
[2017-12-17] MEDS: HYDROmorphone INJ 0.5 MG/0.5 ML SYR IV PRN ×4 (02:15→19:45)
[2017-12-17] MEDS: ALBUT/IPRATROP 3MG/0.5MG NEB 3 ML VIAL INH SCH ×6 (03:42→23:46)
[2017-12-17] MEDS ORDERED: POTASSIUM CHLORIDE 20 MEQ TABCR PO STA (07:31)
[2017-12-17] MEDS: FUROSEMIDE 40 MG TAB PO SCH ×2 (08:06→16:05)
[2017-12-17] MEDS: DILTIAZEM HCL 60 MG TAB PO SCH ×3 (08:07→19:48)
[2017-12-17] MEDS: METOPROLOL SUCC 50MG EXT REL TAB PO SCH (08:07)
[2017-12-17] MEDS: THIAMINE HCL 100 MG TAB PO SCH (08:07)
[2017-12-17] MEDS: ASPIRIN 325 MG ECTAB PO SCH (08:08)
[2017-12-17] MEDS: PAROXETINE 20 MG TAB PO SCH (08:08)
[2017-12-17] MEDS: MULTIVITAMINS W/MINERALS 15ML UDP PO SCH (08:09)
[2017-12-17] MEDS: PANTOprazole SOD 40 MG TAB PO SCH (08:09)
[2017-12-17] MEDS: AMLODIPINE BESYLATE 5 MG TAB PO SCH (08:09)
[2017-12-17] MEDS: HEPARIN SOD 5000 UNIT/0.5 ML CARP SQ SCH ×2 (08:13→19:51)
[2017-12-17] MEDS ORDERED: NURSING VERBAL MED ORDER ONE (14:45)
--- NOTE | 2017-12-17 15:33 | Neurology Progress Notes ---
Neurology Progress Note Date of Service Dec 17, 2017. Prakash Perdue is a 62-year-old male with PMH of advanced COPD, pulmonary hypertension, chronic bronchiectasis, diastolic heart failure, HTN, BCC, Tobacco use disorder , anxiety, depression, Joyce's esophagus who presented with worsening shortness of breath. On arrival he was minimally responsive and in severe respiratory distress on BiPAP. He had been sleeping 2-3 days prior to arrival and he has called his sister today requesting for help. He was admitted with severe respiratory acidosis and was intubated. He was told he needed a lung transplant but decided not to pursue it. Currently he is sitting bedside and complaining of a left UE numbness and requesting an US of his cubital area of his left arm and groin pain. Orthopedics has been consulted but no note in the chart at this point. denies CP , N, V, abdominal pain, +SOB on NC 02. Objective Date Time Temp Pulse Resp B/P (MAP) Pulse Ox O2 Delivery O2 Flow Rate FiO2 12/17/17 12:00 Nasal Cannula 4.0 12/17/17 11:20 76 18 90 Room Air 12/17/17 10:59 36.6 77 18 132/65 (87) 90 Room Air 12/17/17 08:00 Nasal Cannula 4.0 12/17/17 07:19 36.6 89 20 138/72 (94) 100 Room Air 12/17/17 06:58 73 18 96 Nasal Cannula 4.0 12/17/17 04:04 Nasal Cannula 4.0 12/17/17 03:55 36.6 75 18 124/66 (85) 98 12/17/17 00:16 BiPAP 4.0 12/17/17 00:02 36.6 74 20 131/77 (95) 92 12/16/17 23:11 79 18 97 BiPAP/CPAP 30 12/16/17 23:10 79 97 30 12/16/17 20:30 78 18 91 Room Air 12/16/17 20:00 Nasal Cannula 4.0 12/16/17 18:58 36.6 72 22 114/70 (85) 93 Room Air 12/16/17 15:43 Nasal Cannula 4.0 no new labs Imaging: no new imaging Exam: Gen: alert NAD continuous O2 on NC lungs course breath sounds CV RRR left arm decreased edema, mobility of digits for fine motor improved, tenderness with palpation of biceps, deltoid, shoulder. 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 Current Inpatient Medications Medications (Trade) Dose Ordered Sig/Tyree Route Start Time Stop Time Status Last Admin Dose Admin Acetaminophen (Tylenol Tab) 650 mg Q4H PRN PO 12/07/17 23:30 01/06/18 23:29 Amlodipine Besylate (Norvasc Tab) 10 mg DAILY PO 12/08/17 09:00 01/07/18 08:59 12/17/17 08:09 10 MG Diltiazem HCl (Cardizem Tab) 60 mg TID PO 12/08/17 09:00 01/07/18 08:59 12/17/17 14:09 60 MG Metoprolol Succinate (Toprol Xl Tab) 100 mg QAM PO 12/08/17 09:00 01/07/18 08:59 12/17/17 08:07 100 MG Paroxetine HCl (pAXil TAB) 20 mg DAILY PO 12/08/17 09:00 01/07/18 08:59 12/17/17 08:08 20 MG Multivitamins Therapeutic (Cerovite Liquid) 15 ml QAM PO 12/08/17 09:00 01/07/18 08:59 12/17/17 08:09 15 ML Thiamine HCl (Vitamin B-1 Tab) 100 mg QAM PO 12/08/17 09:00 01/07/18 08:59 12/17/17 08:07 100 MG Heparin Sodium (Porcine) (Heparin Sq 5000 Unit/0.5ml) 5,000 unit Q12 SQ 12/09/17 09:00 01/08/18 08:59 12/17/17 08:13 5,000 UNIT Albuterol/ Ipratropium (Duoneb) 3 ml Q4R INH 12/09/17 20:00 01/08/18 19:59 12/17/17 11:20 3 ML Aspirin (Ecotrin Tab) 325 mg QAM PO 12/10/17 09:00 01/09/18 08:59 12/17/17 08:08 325 MG Pantoprazole Sodium (Protonix Tab) 40 mg QAM PO 12/13/17 09:00 01/12/18 08:59 12/17/17 08:09 40 MG Hydromorphone HCl (Dilaudid Inj) 0.5 mg Q6H PRN IV 12/14/17 00:30 12/28/17 00:29 12/17/17 14:10 0.5 MG Oxycodone/ Acetaminophen (Percocet 10-325MG Tab) 1 tab Q6 PRN PO 12/13/17 18:45 12/23/17 14:14 12/17/17 14:10 1 TAB Prednisone (PredniSONE TAB) 50 mg DAILY PO 12/16/17 09:00 01/15/18 08:59 12/17/17 08:08 50 MG Furosemide (Lasix Tab) 40 mg BID17 PO 12/16/17 09:00 01/15/18 08:59 12/17/17 08:06 40 MG Iron Sucrose 100 mg/Sodium Chloride 105 ml @ 420 mls/hr 1600 IV 12/17/17 16:00 12/17/17 16:14 Nicotine (Nicoderm Cq 14MG Patch) 1 patch QAM TD 12/17/17 15:00 01/16/18 14:59 Miscellaneous (Remove Nicoderm Patch) 1 ea HS N/A 12/17/17 21:00 01/16/18 20:59 Impression 62 year old male with acute respiratory failure and intubated, now extubated with left UE/right LE weakness. Plan 1. MRI with no evidence of ischemic event- 2. right LE appear to be related to groin pain 3. positive for marijuana and EtOH 3.0 on admission currently receiving thiamine 4. Left UE weakness, edema IV infiltrate? local trauma fall? atrophy left UE favors chronic neck issues 5. PT/OT for discharge needs 6. palliative medicine for medication management 7. fall risk 8. pulmonary with no new recommendations 9. TTE no PFO 10. MRI cspine- re scanned no C spine etiology to account for left arm issues 11. home nursing to reestablish care prior to discharge 12. orthopedics consulted for shoulder pain. will see back in neurology in 2-3 weeks for follow up EMG with Dr Rahul Mccloud, or Dr Clare Shin. I have seen and discussed above patient with Dr Rahul Mccloud, neurology
[2017-12-17] MEDS ORDERED: IRON SUCROSE INJ 100 MG in SODIUM CHLORIDE 0.9% 100ML 100 ML IV SCH (16:00)
[2017-12-17] MEDS: NICOTINE 14 MG/24 HR TDSY TD SCH (16:04)
--- NOTE | 2017-12-17 16:06 | Orthopedic Consultation ---
Orthopedic Consultation Date of Consultation: Dec 17, 2017. Attending Physician: Stephane Jaramillo M.D. Reason for Consultation: Left upper extremity pain and weakness for 1 week. History of Present Illness This individual male who has been here for 10 days with significant lung issues and cardiac problems and underlying alcoholic and on chronic pain pills with complaints of left upper extremity weakness has been going on for a week. However after discussion with this individual he has had this problem off and on for quite some time he said it got worse when somebody tried to take a blood sample from his elbow area and states the nurse bent the needle like a "lightening bolt". States it got worse after that point time but now getting better in the last couple days. He states he had significant swelling was at the upper extremity which is now been almost resolved. Patient is quite belligerent individual and wants everything done while he is here to hospital however he is here for other significant problems that are life-threatening such as his lungs and cardiac disease. So far every single study regarding the left upper extremity has been perfectly normal. Cervical spine MRI is normal, left shoulder x-rays are normal, and the ultrasound of his other extremity arteries and veins are perfectly patent and intact. Patient tells me he has a history of carpal tunnel and he was diagnosed previously with carpal tunnel as well. Past Medical/Surgical History Medical Problems: (1) Chest pain Status: Acute (2) COPD exacerbation Status: Acute (3) Dehydration Status: Acute (4) Fall Status: Acute (5) Fracture of rib of right side Status: Acute (6) Hypercapnic respiratory failure Status: Acute (7) Hypoxia Status: Acute (8) Laceration of right forearm Status: Acute (9) Multiple fractures of ribs, right side, initial encounter forclosed fracture Status: Acute (10) Postoperative wound dehiscence Status: Acute (11) SOB (shortness of breath) Status: Acute (12) Vomiting Status: Acute Family History FH: CAD (coronary artery disease) FATHER (LA, bypass) FHx: heart disease SISTER (atrial septal defect) Hypertension FATHER MOTHER Stroke FATHER TIAs FATHER Social History Smoking Status: Former Smoker (Last cigarette 1.5 weeks ago) Smokeless Tobacco Use: No Alcohol Use: heavy Marital Status: single Housing Status: lives alone Occupation Status: employed Allergies Coded Allergies: Shellfish (Verified Allergy, Severe, SOB & SWOLLEN GLANDS FROM SHELLFISH, 10/03/17) Onion (Verified Allergy, Unknown, RASH AND GI UPSET, 10/03/17) Captopril (Verified Adverse Reaction, Intermediate, "felt bad", 10/03/17) Codeine (Verified Adverse Reaction, Unknown, nausea; nightmares, 10/03/17) Home Medications Scheduled Amlodipine (Norvasc), 10 MG PO DAILY Aspirin (Aspirin Ec), 81 MG PO DAILY Diltiazem Hcl (Cardizem), 60 MG PO TID Fluticasone Furoate-Vilanterol (Breo Ellipta), 1 PUFF INH DAILY Furosemide (Lasix), 20 MG PO DAILY Home O2 Therapy (Oxygen), 3 LITERS NA HS Ipratropium Gregory (Atrovent 0.02% Soln), 2.5 ML NEB QID Levalbuterol Hcl (Levalbuterol), 1.25 MG NEB Q4H Magnesium Oxide (Mag-Ox), 400 MG PO DAILY Metoprolol Succ (Toprol Xl) (Toprol-Xl ), 100 MG PO QAM Pantoprazole (Protonix), 40 MG PO QAM Paroxetine Hcl (Paxil), 20 MG PO DAILY Potassium Chloride (Potassium Chloride ER), 2 MEQ PO DAILY Scheduled PRN Albuterol Sulfate (Proventil Hfa), 2 PUFFS INH Q6H PRN for Shortness of Breath Oxycodone/Acetaminophen 10MG/325MG (Percocet 10MG/325MG), 1 TAB PO Q6H PRN for Pain Zolpidem Tartrate (Ambien), 10 MG PO HS PRN for Sleep Current Inpatient Medications Current Inpatient Medications Medications (Trade) Dose Ordered Sig/Tyree Route Start Time Stop Time Status Last Admin Dose Admin Acetaminophen (Tylenol Tab) 650 mg Q4H PRN PO 12/07/17 23:30 01/06/18 23:29 Amlodipine Besylate (Norvasc Tab) 10 mg DAILY PO 12/08/17 09:00 01/07/18 08:59 12/17/17 08:09 10 MG Diltiazem HCl (Cardizem Tab) 60 mg TID PO 12/08/17 09:00 01/07/18 08:59 12/17/17 14:09 60 MG Metoprolol Succinate (Toprol Xl Tab) 100 mg QAM PO 12/08/17 09:00 01/07/18 08:59 12/17/17 08:07 100 MG Paroxetine HCl (pAXil TAB) 20 mg DAILY PO 12/08/17 09:00 01/07/18 08:59 12/17/17 08:08 20 MG Multivitamins Therapeutic (Cerovite Liquid) 15 ml QAM PO 12/08/17 09:00 01/07/18 08:59 12/17/17 08:09 15 ML Thiamine HCl (Vitamin B-1 Tab) 100 mg QAM PO 12/08/17 09:00 01/07/18 08:59 12/17/17 08:07 100 MG Heparin Sodium (Porcine) (Heparin Sq 5000 Unit/0.5ml) 5,000 unit Q12 SQ 12/09/17 09:00 01/08/18 08:59 12/17/17 08:13 5,000 UNIT Albuterol/ Ipratropium (Duoneb) 3 ml Q4R INH 12/09/17 20:00 01/08/18 19:59 12/17/17 15:45 3 ML Aspirin (Ecotrin Tab) 325 mg QAM PO 12/10/17 09:00 01/09/18 08:59 12/17/17 08:08 325 MG Pantoprazole Sodium (Protonix Tab) 40 mg QAM PO 12/13/17 09:00 01/12/18 08:59 12/17/17 08:09 40 MG Hydromorphone HCl (Dilaudid Inj) 0.5 mg Q6H PRN IV 12/14/17 00:30 12/28/17 00:29 12/17/17 14:10 0.5 MG Oxycodone/ Acetaminophen (Percocet 10-325MG Tab) 1 tab Q6 PRN PO 12/13/17 18:45 12/23/17 14:14 12/17/17 14:10 1 TAB Prednisone (PredniSONE TAB) 50 mg DAILY PO 12/16/17 09:00 01/15/18 08:59 12/17/17 08:08 50 MG Furosemide (Lasix Tab) 40 mg BID17 PO 12/16/17 09:00 01/15/18 08:59 12/17/17 08:06 40 MG Iron Sucrose 100 mg/Sodium Chloride 105 ml @ 420 mls/hr 1600 IV 12/17/17 16:00 12/17/17 16:14 Nicotine (Nicoderm Cq 14MG Patch) 1 patch QAM TD 12/17/17 15:00 01/16/18 14:59 Miscellaneous (Remove Nicoderm Patch) 1 ea HS N/A 12/17/17 21:00 01/16/18 20:59 Physical Exam Date Time Temp Pulse Resp B/P (MAP) Pulse Ox O2 Delivery O2 Flow Rate FiO2 12/17/17 15:45 81 18 96 Nasal Cannula 4.0 12/17/17 12:00 Nasal Cannula 4.0 12/17/17 11:20 76 18 90 Room Air 12/17/17 10:59 36.6 77 18 132/65 (87) 90 Room Air 12/17/17 08:00 Nasal Cannula 4.0 12/17/17 07:19 36.6 89 20 138/72 (94) 100 Room Air 12/17/17 06:58 73 18 96 Nasal Cannula 4.0 12/17/17 04:04 Nasal Cannula 4.0 12/17/17 03:55 36.6 75 18 124/66 (85) 98 12/17/17 00:16 BiPAP 4.0 12/17/17 00:02 36.6 74 20 131/77 (95) 92 12/16/17 23:11 79 18 97 BiPAP/CPAP 30 12/16/17 23:10 79 97 30 12/16/17 20:30 78 18 91 Room Air 12/16/17 20:00 Nasal Cannula 4.0 12/16/17 18:58 36.6 72 22 114/70 (85) 93 Room Air Extremities/Musculoskelatal: + pertinent finding (Left upper extremity is grossly neurologically perfectly intact. Patient has a full range of motion, however does have some weakness in all planes of motion. He has decreased range of motion of the cervical spine. Otherwise no abnormalities are noted.) Assessment & Plan Left upper extremity weakness: Appears to be resolving, may have been just transient nature secondary to the swelling of his left upper extremity but all studies have been normal and given his significant medical history there is no need to do any other studies at this point in time. There is basically no orthopedic issues with this individual than I can ascertain and there are no reason for us to do any further follow-up. If anything he could have a nerve test performed such as an EMG in the future to evaluate his carpal tunnel and/or cervical spine. Even if it were positive im not sure given his cardiac and lung disease that he be any kind a candidate for any kind of surgical intervention anyway. The fact that he is getting better and on today's examination he has full active range of motion. I would not recommend any further treatment. If anything else from us please feel free to reconsult otherwise will sign off and thank you for the consultation.
--- NOTE | 2017-12-17 17:15 | PROGRESS NOTE ---
DATE: 12/17/2017 I saw Navid today. I reviewed the note by Clare Leigh and agree with her plans for management. Currently, he is improving. The facility of rapid repetitive motions of the left arm are in my opinion essentially normal, though he claims it is significantly down from his baseline. He is using the hand for activities of daily living and his major issue now is pain in the elbow area where he claims he had a scar from a prior IV infiltration and the shoulder with active and passive limitation of motion due to the pain. Strength testing is difficult because of the number of give way phenomenon that are probably related to pain, but by and large, I see intact function in all tested muscle groups. The proximal muscle of the arm are difficult to assess because of the pain, but I think his deltoid function, biceps function, triceps function. He complains of global numbness of the arm and some of this, he states was present previously from the prior IV and some aspects of the history a little inconsistent. Whatever the case, we have a shoulder x-ray that was normal. Orthopedics is going to evaluate him and at some point after discharge, we can do an outpatient EMG to make sure there is not an element of a brachial plexopathy or multiple mononeuropathy, specifically one involving the median nerve at the elbow which might have occurred after an IV infiltration but frankly on a clinical basis, I find this unlikely. Whatever the case, I think at this point, neurology is going to gradually withdraw from the case. I will check back with him tomorrow. MAYA
--- NOTE | 2017-12-17 17:46 | Progress Note ---
Internal Med Progress Note Date of Service: Dec 17, 2017. Provider Documentation: Subjective: Patient has been seen by orthopedics who recommended no further interventions. Have tried to explain to patient the evaluation did not find any gross imaging abnormality. Patient insists that the he needs a left upper extremity ultrasound because he claims that he knows that on the ambulance ride prior to coming to the ICU for which he was intubated, the IV site attempts caused scar tissue of the left brachiocephalic area of the left arm leaving him with nerve pain and relative left arm immobilities. Have tried to explained to patient that he has had prior ultrasound of the left upper extremity before and did not find anything unusual (no blood clots) other than the swelling for which the arm and hand sizes have improved. Patient insists that ultrasound is needed. I explained if there is any modality that would explain the pain is an EMG. But ultimately that time will be needed before the discomfort improves and patient may get back better arm and finger mobility. Physical Exam General: no acute distress Neck-No JVD Lungs-fair air entry bilaterally, no use of accessory muscles, ambulates on room air Heart-S1 and S2 heard regular rhythm no murmurs Abdomen-soft Bowels sounds present no distension Extremities- bilateral lower extremity swelling present, left upper extremity swelling has resolved Neuro-alert and awake, moves extremities with mild weakness of left upper extremity, ASSESSMENT & PLAN: Assessment and Plan: Acute on chronic hypercapnic respiratory failure / COPD, gold level 3, grade C / Pulmonary hypertension. - s/p intubation and extubation on this admission - prednisone with taper, taper by 10 mg every 4 days with the next taper to be done on 12/19/17 - Continue with bronchodilators. - Maintain BiPAP 12/5 every night ongoing until the patient had sleep study at home when he discharged. Chronic diastolic heart failure: Secondary to pulmonary hypertension and cor pulmonale -left upper extremity swelling when in the ICU possible due to IV infiltrate -Left venous upper extremity ultrasound 12/11/17: FINDINGS: There is normal flow , compressibility, phasicity and augmentation of the left upper extremity deep venous structures. Mild edema of the upper extremity. IMPRESSION: No sonographic evidence of deep venous thrombosis. -ultrasound bilateral lower extremities 12/13/17:Calf vessels were suboptimally visualized due to the lower extremity edema. No DVT within the visualized right or left lower extremity -patient to be transitioned from IV Lasix and oral Lasix to oral Lasix alone -hypokalemic serum potassium 2.8 and hypomagenesmia serum magnesium 1.6 on AM labs, electrolytes replated with IV magnesium and IV/PO potassium as now labs show potassium of 4 and magnesium 2.6 in after noon of 12/15/17 -patient's lower extremity swelling is still present and on oral Lasix BID instead of IV to get fluid out and minimize hypokalemia and hypomagnesemia from diuretic use Head CT concerning for stroke but normal MRI / Left upper extremity edema and weakness -Head CT 12/09/17: Subtle hypoattenuation of the cristobal matter at the right frontal vertex, concerning for acute ischemia -No sonographic evidence of deep venous thrombosis on ultrasound 12/11/17 -neurology consultation requested on 12/12/17 -Brain MRI 12/12/17: 1. Motion degraded exam without acute intracranial abnormality identified. No evidence of acute or subacute infarction or abnormal enhancement. 2. Mild atrophy. 3. Mild maxillary and moderate ethmoid sinus disease. 4. Moderate bilateral mastoid effusions - Cervical Spine MRI 12/12/17 1. Very limited study from a technical standpoint 2. No evidence of pathologic marrow replacement. 3. No expansile cord lesions are visualized - a repeat cervical spine MRI 12/13/17: 1. Motion degraded exam. 2. At C3-C4 there is mild intervertebral disc space narrowing, uncovertebral spurring and mild facet arthrosis with circumferential annular disc bulge causing mild central canal, mild to moderate right and mild left foraminal narrowing. 3. No focal bone marrow edema or abnormal enhancement identified. -Neurology notes 12/16/17 ordered a left shoulder X ray that was negative and recommends orthopedic consultation of the left arm -Orthopedic have seen the patient and recommends conservative management -An EMG has been ordered. GABY resolved HTN: on diltiazem and metoprolol Anxiety disorder: Paxil Chronic pain syndrome: on narcotics Alcohol use disorder: Thiamine, folic acid Tobacco use disorder: Nicotine patch Joyce's esophagus: PPI DVT ppx:Lovenox Physical Therapy: recommend return home with O2 and home health assist prn Disposition: remains inpatient. The lower extremity swelling is still substantial. Despite neurology and orthopedics generally recommending conservative management, patient insists that the left upper arm is not being workup up. An EMG for the left arm is ordered as EMG was considered in previous neurology assessments. Patient to continue to get diuresis and electrolyte monitoring For when patient is discharged he needs to have the BIPAP sent to house which is coordinated by case management Patient has following outpatient appointments with primary care doctor 2017 10:40 AM Zach Monroy MD. Family Practice [facility], neurology 01/18/2018 1:00 PM Clare Shin MD Neurology [facility] pulmonary Dr. Gomez on 01/01/18 at 8:30 AM ([phone]) Vital Signs: Date Time Temp Pulse Resp B/P (MAP) Pulse Ox O2 Delivery O2 Flow Rate FiO2 12/17/17 16:24 Nasal Cannula 4.0 12/17/17 16:04 36.6 71 20 100/60 (73) 94 Nasal Cannula 4.0 12/17/17 15:45 81 18 96 Nasal Cannula 4.0 12/17/17 12:00 Nasal Cannula 4.0 12/17/17 11:20 76 18 90 Room Air 12/17/17 10:59 36.6 77 18 132/65 (87) 90 Room Air 12/17/17 08:00 Nasal Cannula 4.0 12/17/17 07:19 36.6 89 20 138/72 (94) 100 Room Air 12/17/17 06:58 73 18 96 Nasal Cannula 4.0 12/17/17 04:04 Nasal Cannula 4.0 12/17/17 03:55 36.6 75 18 124/66 (85) 98 12/17/17 00:16 BiPAP 4.0 12/17/17 00:02 36.6 74 20 131/77 (95) 92 12/16/17 23:11 79 18 97 BiPAP/CPAP 30 12/16/17 23:10 79 97 30 12/16/17 20:30 78 18 91 Room Air 12/16/17 20:00 Nasal Cannula 4.0 12/16/17 18:58 36.6 72 22 114/70 (85) 93 Room Air
[2017-12-17] MEDS: ZOLPIDEM TARTRATE 5 MG TAB PO PRN (20:41)
[2017-12-18] VITALS (9 sets, daily range): BP systolic 110–148; BP diastolic 58–84; PULSE 72–92; TEMP 36.3–36.9; O2SAT 90–99
[2017-12-18] MEDS: OXYCODONE/ACETAMINOPHEN 10/325MG TAB PO PRN ×4 (01:32→20:20)
[2017-12-18] MEDS: HYDROmorphone INJ 0.5 MG/0.5 ML SYR IV PRN ×6 (01:34→19:36)
[2017-12-18] MEDS: ALBUT/IPRATROP 3MG/0.5MG NEB 3 ML VIAL INH SCH ×6 (03:15→22:55)
[2017-12-18] MEDS: DILTIAZEM HCL 60 MG TAB PO SCH ×3 (07:31→20:19)
[2017-12-18] MEDS: MULTIVITAMINS W/MINERALS 15ML UDP PO SCH (07:31)
[2017-12-18] MEDS: PAROXETINE 20 MG TAB PO SCH (07:32)
[2017-12-18] MEDS: AMLODIPINE BESYLATE 5 MG TAB PO SCH (07:32)
[2017-12-18] MEDS: FUROSEMIDE 40 MG TAB PO SCH ×2 (07:32→16:42)
[2017-12-18] MEDS: ASPIRIN 325 MG ECTAB PO SCH (07:32)
[2017-12-18] MEDS: THIAMINE HCL 100 MG TAB PO SCH (07:33)
[2017-12-18] MEDS: METOPROLOL SUCC 50MG EXT REL TAB PO SCH (07:33)
[2017-12-18] MEDS: PANTOprazole SOD 40 MG TAB PO SCH (07:33)
[2017-12-18] MEDS: NICOTINE 14 MG/24 HR TDSY TD SCH (07:34)
[2017-12-18] MEDS: HEPARIN SOD 5000 UNIT/0.5 ML CARP SQ SCH ×2 (07:42→20:21)
[2017-12-18 08:10] LABS: ALBUMIN 2.9 gm/dl (3.4-5.0); CREATININE 0.97 mg/dl (0.60-1.40); POTASSIUM 3.8 mmol/L (3.5-5.1)
[2017-12-18 08:15] LABS: TOTAL PROTEIN 6.2 gm/dl (6.4-8.2)
--- NOTE | 2017-12-18 10:33 | Progress Note ---
Internal Med Progress Note Date of Service: Dec 18, 2017. Provider Documentation: SUBJECTIVE: Seen and examined at bedside Complains of generalized pain and requests for Dilaudid Chronic SOB on chronic oxygen States Left Upper Extremity numbness, mobility is improving No other complaints OBJECTIVE: Vital Signs-as noted below Physical Exam: Vitals signs as noted above General Appearance:Moderately built and nourished, no apparent distress Head: normocephalic, Atraumatic Eyes: normal inspection, EOMI, PERRL Neck: supple, Trachea midline Respiratory/Chest: Normal breath sounds, CTA Cardiovascular: S1, S2, No murmur Abdomen/GI:Soft, Non tender, Bowel sounds present Extremities/Musculoskelatal:normal inspection, 2+ B/L LE edema Neurologic/Psych:AAOX3, grossly no focal neurological deficits Skin: normal color, warm Lab data as noted below. ASSESSMENT & PLAN: Acute on chronic hypercapnic respiratory failure Secondary to End Stage COPD, Pulmonary hypertension, chronic bronchiectasis Refused Lung Transplantation previously Chronic Oxygen dependency: 4L at baseline s/p extubation Continue Prednisone taper, DuoNeb Plan to taper by 10mg every 4 days Continue BiPAP 12/5 QHS Appreciate Pulmonology/Criticare help Oxygen support PRN Planned for be discharged home with Home Hospice Appreciate Palliative Care Input Poor prognosis Needs follow up with Pulmonology as outpatient Chronic diastolic heart failure: Secondary to pulmonary hypertension and cor pulmonale EF: 55-60% Continue PO diuretics Left upper extremity swelling/Numbness: Likely secondary to IV infiltrate, ? fall/trauma Left venous upper extremity ultrasound: No sonographic evidence of deep venous thrombosis. Swelling much improved Complains of some numbness but improving per patient MRI Brain: No signs of acute Ischemia MRI C-spine:no acute process Planned for EMG as outpatient Appreciate Neurology and Orthopedics Input Needs follow up with / as outpatient in 3-4 weeks Hypokalemia/Hypomagnesemia: Likely secondary to diuretics Resolved monitor electrolytes GABY: resolved monitor renal function HTN: Continue diltiazem, metoprolol stable Anxiety disorder: continue Paxil Chronic pain syndrome: on narcotics Alcohol use disorder: continue Thiamine, multivitamin Tobacco use disorder: Nicotine patch Joyce's esophagus: continue PPI DVT Px: Heparin SQ Disposition: Planned to be discharged home with [facility] [employer] following Needs to be discharged on Steroid taper, BiPAP Outpatient appointments: Primary Care Physician follow up With on 12/20/17 at 10.25 Am Neurology Follow up with on 01/18/2018 at 12:45 PM Pulmonology follow up with [facility] pulmonary Dr. Gomez on 01/01/18 at 8:30 AM. Vital Signs: Date Time Temp Pulse Resp B/P (MAP) Pulse Ox O2 Delivery O2 Flow Rate FiO2 12/18/17 15:44 36.5 81 23 110/58 (75) 95 Room Air 12/18/17 15:14 81 18 96 Nasal Cannula 3.5 12/18/17 12:04 Nasal Cannula 4.0 12/18/17 11:34 78 20 98 Nasal Cannula 3.5 12/18/17 08:47 Nasal Cannula 4.0 12/18/17 08:05 36.3 92 18 148/84 (105) 99 BiPAP 12/18/17 07:10 72 20 98 BiPAP/CPAP 30 12/18/17 04:00 Nasal Cannula 4.0 12/18/17 03:17 36.5 81 24 143/66 (91) 95 Nasal Cannula 3.5 12/18/17 03:16 77 20 96 Nasal Cannula 3.5 12/17/17 23:59 91 Room Air 12/17/17 23:59 36.4 75 16 128/64 (85) 91 Room Air 12/17/17 23:46 89 26 97 BiPAP/CPAP 30 12/17/17 23:46 89 97 30 12/17/17 20:18 37.2 72 20 124/64 (84) 95 Nasal Cannula 4.0 12/17/17 20:08 Nasal Cannula 4.0 12/17/17 19:41 76 18 96 Nasal Cannula 4.0 Lab Results: Results Past 24 Hours Test 12/18/17 07:23 Range/Units Sodium Level 135 136-145 mmol/L Potassium Level 3.8 3.5-5.1 mmol/L Chloride Level 95 98-107 mmol/L Carbon Dioxide Level 37 21-32 mmol/L Anion Gap 3.0 3-11 mmol/L Blood Urea Nitrogen 25 7-18 mg/dl Creatinine 0.97 0.60-1.40 mg/dl Est Creatinine Clear Calc Drug Dose 84.4 ml/min Estimated GFR () 95.2 Estimated GFR (Non- 82.2 BUN/Creatinine Ratio 25.3 10-20 Random Glucose 73 70-99 mg/dl Calcium Level 8.0 8.5-10.1 mg/dl Total Bilirubin 0.2 0.2-1 mg/dl Aspartate Amino Transf (AST/SGOT) 14 15-37 U/L Alanine Aminotransferase (ALT/SGPT) 26 12-78 U/L Alkaline Phosphatase 67 45-117 U/L Total Protein 6.2 6.4-8.2 gm/dl Albumin 2.9 3.4-5.0 gm/dl Globulin 3.3 2.5-4.0 gm/dl Albumin/Globulin Ratio 0.9 0.9-2
--- NOTE | 2017-12-18 13:32 | Palliative Care Progress Note ---
Palliative Care Progress Note Date of Service Dec 18, 2017. Subjective Pt evaluation today including: conversation w/ patient, conversation w/ family , physical exam, conversation w/ practice consultant Pain: appears controlled PO Intake: adequate - tolerating meals Voiding: no voiding problems Pt was evaluated for follow up. Patient with COPD with an FEV of 44% on his last PFTs. Patient has had an infiltrated IV in his left forearm when he was in the [facility] which has been improving. He states that he feels like it is improving but thinks that a 'needle was put in his arm the wrong way'. We discussed that the needle inserted is a catheter and not a needle and that it usually takes a few weeks to have full mobility and strength back. An EMG has already been ordered and we set the expectation that this can be done on an outpatient basis. We talked at length reconfirming his GOALS OF CARE which are to return home with hospice support and remain DNR/DNI. With his end stage COPD, I suspect that he is an appropriate candidate for Hospice at home. His sister, Jing, was at the bedside also. Upon assessment, he does not appear in acute distress and was ambulating in the hallway with his walker on RA. He does have pitting pedal edema which may improve with ambulation and being up and moving around. I talked with Case Management and he has been approved through [facility]. His Bipap has already been approved for home use as well. The patient has been complaining of generalized pain for which he has been receiving Dilaudid for. I did set the expectation that he would not be given large quantities of narcotics upon discharge and he was ok with this. No further questions from sister or patient. At this time, the goal is to hopefully have him transition home either today or tomorrow. Review of Systems Pt denies CP, SOB, palpitations, N/V/D, appetite changes. Objective Vital Signs Date Time Temp Pulse Resp B/P (MAP) Pulse Ox O2 Delivery O2 Flow Rate FiO2 12/18/17 12:04 Nasal Cannula 4.0 12/18/17 11:34 78 20 98 Nasal Cannula 3.5 12/18/17 08:47 Nasal Cannula 4.0 12/18/17 08:05 36.3 92 18 148/84 (105) 99 BiPAP 12/18/17 07:10 72 20 98 BiPAP/CPAP 30 12/18/17 04:00 Nasal Cannula 4.0 12/18/17 03:17 36.5 81 24 143/66 (91) 95 Nasal Cannula 3.5 12/18/17 03:16 77 20 96 Nasal Cannula 3.5 12/17/17 23:59 91 Room Air 12/17/17 23:59 36.4 75 16 128/64 (85) 91 Room Air 12/17/17 23:46 89 26 97 BiPAP/CPAP 30 12/17/17 23:46 89 97 30 12/17/17 20:18 37.2 72 20 124/64 (84) 95 Nasal Cannula 4.0 12/17/17 20:08 Nasal Cannula 4.0 12/17/17 19:41 76 18 96 Nasal Cannula 4.0 12/17/17 16:24 Nasal Cannula 4.0 12/17/17 16:04 36.6 71 20 100/60 (73) 94 Nasal Cannula 4.0 12/17/17 15:45 81 18 96 Nasal Cannula 4.0 Physical Exam General Appearance: no apparent distress Respiratory/Chest: chest non-tender, lungs clear, normal breath sounds, + respiratory distress (patient becomes winded with excessive movement - but is not requiring O2 with ambulation), + decreased breath sounds, + wheezing Cardiovascular: regular rate, rhythm, no JVD, no murmur, + pertinent finding ( pt with pedal edema B/L) Abdomen: normal bowel sounds, non tender, soft Skin: warm/dry Laboratory Results Last 24 Hours Test 12/18/17 07:23 Sodium Level 135 mmol/L Potassium Level 3.8 mmol/L Chloride Level 95 mmol/L Carbon Dioxide Level 37 mmol/L Anion Gap 3.0 mmol/L Blood Urea Nitrogen 25 mg/dl Creatinine 0.97 mg/dl Est Creatinine Clear Calc Drug Dose 84.4 ml/min Estimated GFR () 95.2 Estimated GFR (Non- 82.2 BUN/Creatinine Ratio 25.3 Random Glucose 73 mg/dl Calcium Level 8.0 mg/dl Total Bilirubin 0.2 mg/dl Aspartate Amino Transf (AST/SGOT) 14 U/L Alanine Aminotransferase (ALT/SGPT) 26 U/L Alkaline Phosphatase 67 U/L Total Protein 6.2 gm/dl Albumin 2.9 gm/dl Globulin 3.3 gm/dl Albumin/Globulin Ratio 0.9 Assessment and Plan Palliative Care Encounter Goals of Care COPD Palliative Care recommendations: -With his end-stage COPD and most recent FEV at 44%, I still believe he would qualify for hospice at home with the appropriate support. -Continue with bronchodilators and steroids related to -Continue with BIPAP at night - this also can be used in conjunction with Hospice as this patient is at the end -stage of his disease -Patient to remain DNR/DNI -Continue to work with Case Management with discharge planning Palliative Performance Scale: 50 % Continued [facility] stay due to: other (Plan for transitioning home with hospice support) Discharge planning: other (home with home health vs hospice support) Counseling and Coordination Total time spent 35 minutes with > 50% of that time discussing goals of care and discharge planning, along with symptom management with patient and sister at the bedside.
--- NOTE | 2017-12-18 13:53 | Neurology Progress Notes ---
Neurology Progress Note Date of Service Dec 18, 2017. Prakash Perdue is a 62-year-old male with PMH of advanced COPD, pulmonary hypertension, chronic bronchiectasis, diastolic heart failure, HTN, BCC, Tobacco use disorder , anxiety, depression, Joyce's esophagus who presented with worsening shortness of breath. On arrival he was minimally responsive and in severe respiratory distress on BiPAP. He had been sleeping 2-3 days prior to arrival and he has called his sister today requesting for help. He was admitted with severe respiratory acidosis and was intubated. He was told he needed a lung transplant but decided not to pursue it. Currently he is sitting bedside and complaining of a left UE numbness. Sister is with him in the room. EMG has been ordered as outpatient to evaluated his arm and plans to discharge him to home on hospice tomorrow. denies CP, N, V, abdominal pain, +SOB on NC 02. Objective Date Time Temp Pulse Resp B/P (MAP) Pulse Ox O2 Delivery O2 Flow Rate FiO2 12/18/17 12:04 Nasal Cannula 4.0 12/18/17 11:34 78 20 98 Nasal Cannula 3.5 12/18/17 08:47 Nasal Cannula 4.0 12/18/17 08:05 36.3 92 18 148/84 (105) 99 BiPAP 12/18/17 07:10 72 20 98 BiPAP/CPAP 30 12/18/17 04:00 Nasal Cannula 4.0 12/18/17 03:17 36.5 81 24 143/66 (91) 95 Nasal Cannula 3.5 12/18/17 03:16 77 20 96 Nasal Cannula 3.5 12/17/17 23:59 91 Room Air 12/17/17 23:59 36.4 75 16 128/64 (85) 91 Room Air 12/17/17 23:46 89 26 97 BiPAP/CPAP 30 12/17/17 23:46 89 97 30 12/17/17 20:18 37.2 72 20 124/64 (84) 95 Nasal Cannula 4.0 12/17/17 20:08 Nasal Cannula 4.0 12/17/17 19:41 76 18 96 Nasal Cannula 4.0 12/17/17 16:24 Nasal Cannula 4.0 12/17/17 16:04 36.6 71 20 100/60 (73) 94 Nasal Cannula 4.0 12/17/17 15:45 81 18 96 Nasal Cannula 4.0 Last 24 Hours Test 12/18/17 07:23 Sodium Level 135 mmol/L Potassium Level 3.8 mmol/L Chloride Level 95 mmol/L Carbon Dioxide Level 37 mmol/L Anion Gap 3.0 mmol/L Blood Urea Nitrogen 25 mg/dl Creatinine 0.97 mg/dl Est Creatinine Clear Calc Drug Dose 84.4 ml/min Estimated GFR () 95.2 Estimated GFR (Non- 82.2 BUN/Creatinine Ratio 25.3 Random Glucose 73 mg/dl Calcium Level 8.0 mg/dl Total Bilirubin 0.2 mg/dl Aspartate Amino Transf (AST/SGOT) 14 U/L Alanine Aminotransferase (ALT/SGPT) 26 U/L Alkaline Phosphatase 67 U/L Total Protein 6.2 gm/dl Albumin 2.9 gm/dl Globulin 3.3 gm/dl Albumin/Globulin Ratio 0.9 Imaging: no new imaging Exam: Gen: alert NAD lungs labored breathing CV RRR movement of left UE much improved dexterity and deltoid movement improved Current Inpatient Medications Medications (Trade) Dose Ordered Sig/Tyree Route Start Time Stop Time Status Last Admin Dose Admin Acetaminophen (Tylenol Tab) 650 mg Q4H PRN PO 12/07/17 23:30 01/06/18 23:29 Amlodipine Besylate (Norvasc Tab) 10 mg DAILY PO 12/08/17 09:00 01/07/18 08:59 12/18/17 07:32 10 MG Diltiazem HCl (Cardizem Tab) 60 mg TID PO 12/08/17 09:00 01/07/18 08:59 12/18/17 13:38 60 MG Metoprolol Succinate (Toprol Xl Tab) 100 mg QAM PO 12/08/17 09:00 01/07/18 08:59 12/18/17 07:33 100 MG Paroxetine HCl (pAXil TAB) 20 mg DAILY PO 12/08/17 09:00 01/07/18 08:59 12/18/17 07:32 20 MG Multivitamins Therapeutic (Cerovite Liquid) 15 ml QAM PO 12/08/17 09:00 01/07/18 08:59 12/18/17 07:31 15 ML Thiamine HCl (Vitamin B-1 Tab) 100 mg QAM PO 12/08/17 09:00 01/07/18 08:59 12/18/17 07:33 100 MG Heparin Sodium (Porcine) (Heparin Sq 5000 Unit/0.5ml) 5,000 unit Q12 SQ 12/09/17 09:00 01/08/18 08:59 12/18/17 07:42 5,000 UNIT Albuterol/ Ipratropium (Duoneb) 3 ml Q4R INH 12/09/17 20:00 01/08/18 19:59 12/18/17 11:34 3 ML Aspirin (Ecotrin Tab) 325 mg QAM PO 12/10/17 09:00 01/09/18 08:59 12/18/17 07:32 325 MG Pantoprazole Sodium (Protonix Tab) 40 mg QAM PO 12/13/17 09:00 01/12/18 08:59 12/18/17 07:33 40 MG Hydromorphone HCl (Dilaudid Inj) 0.5 mg Q6H PRN IV 12/14/17 00:30 12/28/17 00:29 12/18/17 13:38 0.5 MG Oxycodone/ Acetaminophen (Percocet 10-325MG Tab) 1 tab Q6 PRN PO 12/13/17 18:45 12/23/17 14:14 12/18/17 13:38 1 TAB Prednisone (PredniSONE TAB) 50 mg DAILY PO 12/16/17 09:00 01/15/18 08:59 12/18/17 07:32 50 MG Furosemide (Lasix Tab) 40 mg BID17 PO 12/16/17 09:00 01/15/18 08:59 12/18/17 07:32 40 MG Nicotine (Nicoderm Cq 14MG Patch) 1 patch QAM TD 12/17/17 15:00 01/16/18 14:59 12/18/17 07:34 1 PATCH Miscellaneous (Remove Nicoderm Patch) 1 ea HS N/A 12/17/17 21:00 01/16/18 20:59 12/17/17 20:41 1 EA Zolpidem Tartrate (Ambien Tab) 5 mg HS PRN PO 12/17/17 19:00 01/16/18 18:59 12/17/17 20:41 5 MG Impression 62 year old male with acute respiratory failure and intubated, now extubated with left UE/right LE weakness. Plan 1. MRI with no evidence of ischemic event- 2. right LE appear to be related to groin pain 3. positive for marijuana and EtOH 3.0 on admission currently receiving thiamine 4. Left UE weakness, edema IV infiltrate? local trauma fall? atrophy left UE favors chronic neck issues 5. PT/OT for discharge needs 6. palliative medicine for medication management 7. fall risk 8. pulmonary with no new recommendations 9. TTE no PFO 10. MRI cspine- re scanned no C spine etiology to account for left arm issues 11. home nursing to reestablish care prior to discharge 12. plan to discharge home tomorrow and then EMG with Dr Mccloud or Kip as an outpatient. will see back in neurology in 2-3 weeks for follow up EMG with Dr Rahul Mccloud, or Dr Clare Shin. I have seen and discussed above patient with Dr Rahul Mccloud, neurology Paatient seen and agree with the above note clinically improving less pain and shoulder and arm are working better suspect primarily mechanical pain due to soft tissue injuries but cannot exclude a brachial plexopathy and will do an outpatient emg in three to four weeks if symptoms persist but if he is better we can defer on this and he will decide we are signing off at this point Karen Mccloud MD
[2017-12-18] MEDS ORDERED: NURSING VERBAL MED ORDER ONE (19:15)
[2017-12-18] MEDS ORDERED: OXYCODONE/ACETAMINOPHEN 10/325MG TAB PO ONE (19:30)
[2017-12-18] MEDS: ZOLPIDEM TARTRATE 5 MG TAB PO PRN (22:13)
[2017-12-19] VITALS (8 sets, daily range): BP systolic 119–150; BP diastolic 67–76; PULSE 68–89; TEMP 36.5–36.7; O2SAT 95–97
[2017-12-19] MEDS: HYDROmorphone INJ 0.5 MG/0.5 ML SYR IV PRN (01:33)
[2017-12-19] MEDS: ALBUT/IPRATROP 3MG/0.5MG NEB 3 ML VIAL INH SCH ×4 (03:26→11:25)
[2017-12-19] MEDS: OXYCODONE/ACETAMINOPHEN 10/325MG TAB PO PRN ×3 (04:41→12:56)
[2017-12-19] MEDS ORDERED: HALOPERIDOL LACTATE 5 MG/ML 1 ML VIAL IM PRN (07:00)
[2017-12-19] MEDS ORDERED: HYDROmorphone INJ 0.5 MG/0.5 ML SYR IV ONE (07:00)
[2017-12-19] MEDS: FUROSEMIDE 40 MG TAB PO SCH (07:52)
[2017-12-19] MEDS: HEPARIN SOD 5000 UNIT/0.5 ML CARP SQ SCH (07:52)
[2017-12-19] MEDS: MULTIVITAMINS W/MINERALS 15ML UDP PO SCH (07:52)
[2017-12-19] MEDS: THIAMINE HCL 100 MG TAB PO SCH (07:53)
[2017-12-19] MEDS: METOPROLOL SUCC 50MG EXT REL TAB PO SCH (07:53)
[2017-12-19] MEDS: DILTIAZEM HCL 60 MG TAB PO SCH (07:53)
[2017-12-19] MEDS: ASPIRIN 325 MG ECTAB PO SCH (07:53)
[2017-12-19] MEDS: PAROXETINE 20 MG TAB PO SCH (07:54)
[2017-12-19] MEDS: PANTOprazole SOD 40 MG TAB PO SCH (07:54)
[2017-12-19] MEDS: AMLODIPINE BESYLATE 5 MG TAB PO SCH (07:55)
[2017-12-19] MEDS ORDERED: HYDROmorphone INJ 0.5 MG/0.5 ML SYR IV PRN (08:00)
[2017-12-19 08:14] LABS: HEMATOCRIT 32.8 % (42-52); HEMOGLOBIN 9.5 g/dL (14.0-18.0); MEAN CELL VOLUME 81.8 fL (80-100); MEAN CORPUSCULAR HEMOGLOBIN 23.7 pg (25-34); MEAN PLATELET VOLUME 9.1 fL (7.4-10.4); PLATELET COUNT 539 K/uL (130-400); RED CELL DISTRIBUTION WIDTH CV 21.2 % (11.5-14.5); RED CELL DISTRIBUTION WIDTH SD 63.2 fL (36.4-46.3); WHITE BLOOD COUNT 16.03 K/uL (4.8-10.8)
[2017-12-19 08:45] LABS: CALCIUM 8.2 mg/dl (8.5-10.1); CREATININE 1.11 mg/dl (0.60-1.40); POTASSIUM 3.4 mmol/L (3.5-5.1)
[2017-12-19] MEDS: NICOTINE 14 MG/24 HR TDSY TD SCH (09:03)
[2017-12-19] MEDS ORDERED: POTASSIUM CHLORIDE 10 MEQ TABCR PO ONE (10:00)
[2017-12-19] MEDS ORDERED: MAGNESIUM SULFATE 1GM / D5W 100 ML IV ONE (10:00)
--- NOTE | 2017-12-19 10:12 | Progress Note ---
Internal Med Progress Note Date of Service: Dec 19, 2017. Provider Documentation: SUBJECTIVE: Seen and examined at bedside Doing better today Still reports generalized pain Chronic SOB on chronic oxygen States Left Upper Extremity numbness, mobility, weakness improving No other complaints Planned to be discharged home with Hospice today OBJECTIVE: Vital Signs-as noted below Physical Exam: Vitals signs as noted above General Appearance:Moderately built and nourished, no apparent distress Head: normocephalic, Atraumatic Eyes: normal inspection, EOMI, PERRL Neck: supple, Trachea midline Respiratory/Chest: Decreased breath sounds, CTA Cardiovascular: S1, S2, No murmur Abdomen/GI:Soft, Non tender, Bowel sounds present Extremities/Musculoskelatal:normal inspection, 2+ B/L LE edema Neurologic/Psych:AAOX3, grossly no focal neurological deficits Skin: normal color, warm Lab data as noted below. ASSESSMENT & PLAN: Acute on chronic hypercapnic respiratory failure Secondary to End Stage COPD, Pulmonary hypertension, chronic bronchiectasis Refused Lung Transplantation previously Chronic Oxygen dependency: 4L at baseline s/p extubation Continue Prednisone taper, DuoNeb Plan to taper by 10mg every 4 days Continue BiPAP QHS as per Pulmonary recommendations Appreciate Pulmonology/Critical care help Oxygen support PRN Planned for be discharged home with Home Hospice today Appreciate Palliative Care Input Poor prognosis Needs follow up with Pulmonology as outpatient Chronic diastolic heart failure: Secondary to pulmonary hypertension and cor pulmonale EF: 55-60% Continue PO diuretics Patient prefers not to increase his diuretic dose at home secondary to increased urinary frequency disrupting his work Left upper extremity swelling/Numbness: Likely secondary to IV infiltrate, ? fall/trauma Left venous upper extremity ultrasound: No sonographic evidence of deep venous thrombosis. Swelling much improved Complains of some numbness but improving per patient MRI Brain: No signs of acute Ischemia MRI C-spine:no acute process Planned for EMG as outpatient Appreciate Neurology and Orthopedics Input Needs follow up with / as outpatient in 3-4 weeks Hypokalemia/Hypomagnesemia: Likely secondary to diuretics Replace and monitor monitor electrolytes GABY: resolved monitor renal function HTN: Continue diltiazem, metoprolol stable Anxiety disorder: continue Paxil Chronic pain syndrome: on narcotics Alcohol use disorder: continue Thiamine, multivitamin Tobacco use disorder: Nicotine patch Joyce's esophagus: continue PPI DVT Px: Heparin SQ Disposition: Planned to be discharged home with [facility] [employer] following Needs to be discharged on Steroid taper, BiPAP Outpatient appointments: Primary Care Physician follow up With on 12/20/17 at 10.25 Am Neurology Follow up with on 01/18/2018 at 12:45 PM Pulmonology follow up with [facility] pulmonary Dr. Gomez on 01/01/18 at 8:30 AM. Vital Signs: Date Time Temp Pulse Resp B/P (MAP) Pulse Ox O2 Delivery O2 Flow Rate FiO2 12/19/17 08:00 Nasal Cannula 4.0 12/19/17 07:24 89 20 130/76 (94) 95 Nasal Cannula 4.0 12/19/17 07:15 88 18 97 Nasal Cannula 4.0 12/19/17 04:52 83 20 96 Nasal Cannula 3.5 12/19/17 04:00 36.5 80 22 119/67 (84) 96 BiPAP 30 12/19/17 04:00 BiPAP 30 12/19/17 03:27 30 12/19/17 00:08 36.7 68 18 150/74 (99) 96 Room Air 3.5 30 12/19/17 00:07 36.7 68 18 150/74 (99) 96 12/18/17 23:59 Nasal Cannula 3.5 12/18/17 20:00 Room Air 12/18/17 19:17 36.9 72 18 140/70 (93) 94 Room Air 12/18/17 19:16 73 20 90 Room Air 12/18/17 16:00 Room Air 12/18/17 15:44 36.5 81 23 110/58 (75) 95 Room Air 12/18/17 15:14 81 18 96 Nasal Cannula 3.5 12/18/17 12:04 Nasal Cannula 4.0 12/18/17 11:34 78 20 98 Nasal Cannula 3.5 Lab Results: Results Past 24 Hours Test 12/19/17 07:19 Range/Units White Blood Count 16.03 4.8-10.8 K/uL Red Blood Count 4.01 4.7-6.1 M/uL Hemoglobin 9.5 14.0-18.0 g/dL Hematocrit 32.8 42-52 % Mean Corpuscular Volume 81.8 80-100 fL Mean Corpuscular Hemoglobin 23.7 25-34 pg Mean Corpuscular Hemoglobin Concent 29.0 32-36 g/dl RDW Standard Deviation 63.2 36.4-46.3 fL RDW Coefficient of Variation 21.2 11.5-14.5 % Platelet Count 539 130-400 K/uL Mean Platelet Volume 9.1 7.4-10.4 fL Sodium Level 134 136-145 mmol/L Potassium Level 3.4 3.5-5.1 mmol/L Chloride Level 95 98-107 mmol/L Carbon Dioxide Level 33 21-32 mmol/L Anion Gap 6.0 3-11 mmol/L Blood Urea Nitrogen 31 7-18 mg/dl Creatinine 1.11 0.60-1.40 mg/dl Est Creatinine Clear Calc Drug Dose 73.7 ml/min Estimated GFR () 80.9 Estimated GFR (Non- 69.8 BUN/Creatinine Ratio 28.0 10-20 Random Glucose 79 70-99 mg/dl Calcium Level 8.2 8.5-10.1 mg/dl Magnesium Level 1.4 1.8-2.4 mg/dl
[2017-12-19] MEDS ORDERED: PRED10TA PO (10:16)
--- NOTE | 2017-12-19 10:27 | Discharge Summary ---
Discharge Summary Date of Service Dec 19, 2017. Discharge Summary Admission Date: Dec 07, 2017 at 23:29 Discharge Date: Dec 19, 2017 Discharge Disposition: Home (with Hospice Services) Principal Diagnosis: COPD exacerbation, Acute on chronic respiratory failure Procedures: Intubation and Extubation MRI Brain: 1. Motion degraded exam without acute intracranial abnormality identified. No evidence of acute or subacute infarction or abnormal enhancement. 2. Mild atrophy. 3. Mild maxillary and moderate ethmoid sinus disease. 4. Moderate bilateral mastoid effusions. MRI C-spine: 1. Motion degraded exam. 2. At C3-C4 there is mild intervertebral disc space narrowing, uncovertebral spurring and mild facet arthrosis with circumferential annular disc bulge causing mild central canal, mild to moderate right and mild left foraminal narrowing. 3. No focal bone marrow edema or abnormal enhancement identified. Venous Doppler: No DVT within the visualized right or left lower extremity. Left UE USD: No sonographic evidence of deep venous thrombosis. Left Shoulder X ray: Negative study. Consultations: Pulmonology, Neurology, Critical Care, Palliative Care Pending Studies/Follow-Up: Follow up with your Primary Care Physician on 12/20/17 at 10.25 Am Follow up with your Neurologist on 01/18/2018 at 12:45 PM Follow up with your Customer Leader Dr. Gomez on 01/01/18 at 8:30 AM Use BiPAP and oxygen regularly as advised Complete the prednisone course as prescribed. Seek immediate medical attention if your symptoms reoccur or worsen Prednisone Taper Course: Start taking prednisone 40mg daily for 4 days then 30mg for 4 days then 20mg for 4 days then 10mg for 4 days and stop Medication Reconciliation New Medications: Prednisone Tab (Prednisone) 10 Mg Tab 10 MG PO UD for 16 Days, #40 TAB Start taking 40mg daily for 4 days, then 30mg for 4 days, then 20 mg for 4 days, then 10mg for 4 days and stop Continued Medications: Albuterol Sulfate (Proventil Hfa) 108 Mcg/Act Aer 2 PUFFS INH Q6H PRN for Shortness of Breath Amlodipine (Norvasc) 10 Mg Tab 10 MG PO DAILY, TAB Aspirin (Aspirin Ec) 81 Mg Tab 81 MG PO DAILY Diltiazem Hcl (Cardizem) 60 Mg Tab 60 MG PO TID, TAB Fluticasone Furoate-Vilanterol (Breo Ellipta) 1 Inh Inh 1 PUFF INH DAILY Furosemide (Lasix) 20 Mg Tab 20 MG PO DAILY, TAB Home O2 Therapy (Oxygen) Gas 3 LITERS NA HS Ipratropium Vansant (Atrovent 0.02% Soln) 2.5 Ml Nebu 2.5 ML NEB QID Levalbuterol Hcl (Levalbuterol) 1.25 Mg/0.5 Ml Neb 1.25 MG NEB Q4H Magnesium Oxide (Mag-Ox) 400 Mg Tab 400 MG PO DAILY, TAB Metoprolol Succ (Toprol Xl) (Toprol-Xl ) 100 Mg Tabcr 100 MG PO QAM Oxycodone/Acetaminophen 10MG/325MG (Percocet 10MG/325MG) Tab 1 TAB PO Q6H PRN for Pain, TAB Pantoprazole (Protonix) 40 Mg Tab 40 MG PO QAM TAKE THIS MEDICATION ONCE DAILY 30 MINUTES BEFORE FIRST MEAL OF THE DAY Paroxetine Hcl (Paxil) 20 Mg Tab 20 MG PO DAILY, TAB Potassium Chloride (Potassium Chloride ER) 20 Meq Tabcr 2 MEQ PO DAILY Zolpidem Tartrate (Ambien) 10 Mg Tab 10 MG PO HS PRN for Sleep Admission Information HPI (per Admitting provider): Patient is a 62-year-old male with past medical history of advanced COPD, pulmonary hypertension, chronic bronchiectasis, diastolic heart failure, HTN, BCC, Tobacco use disorder, anxiety, depression, Joyce's esophagus and other problems presents with history of worsening shortness of breath. While in ED patient was minimally responsive and in severe respiratory distress on BiPAP. Patient could not provide any history and most of the history is obtained from the patient's old records, family and ER physician. As per the patient's sister , patient has been sleeping a lot since at least last 2-3 days and he has called his sister today requesting for help. Patient's ABG is consistent with severe respiratory acidosis. 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 Patient has been having multiple hospital admissions and his overall health is declining over the past several months as per the family. He was noted to have worked on Sunday with the help of a friend for transportation and patient's sister dis not receive any call from him since last 2 days. She believed that patient could be dehydrated and did not eat since last 2 days. Complete history could not be obtained. Patient was intubated and transferred to ICU for further management. Physical Exam (per Admitting): General Appearance: WD/WN, + pertinent finding (Sedated and intubated) Head: normocephalic, atraumatic Eyes: normal inspection, PERRL, sclerae normal ENT: normal ENT inspection Neck: supple, trachea midline Respiratory/Chest: chest non-tender, lungs clear, + respiratory distress, + decreased breath sounds Cardiovascular: regular rate, rhythm, no murmur, + pertinent finding (1+ b/ l edema) Abdomen/GI: normal bowel sounds, non tender, soft Back: normal inspection Extremities/Musculoskelatal: normal inspection, + pedal edema Neurologic/Psych: + pertinent finding (Currently sedated and Intubated. Complete neuro exam could not be performed) Skin: normal color, warm/dry Hospital Course Acute on chronic hypercapnic respiratory failure Secondary to End Stage COPD, Pulmonary hypertension, chronic bronchiectasis Refused Lung Transplantation previously Chronic Oxygen dependency: 4L at baseline s/p extubation Continue Prednisone taper, DuoNeb Plan to taper by 10mg every 4 days Continue BiPAP QHS as per Pulmonary recommendations Appreciate Pulmonology/Critical care help Oxygen support PRN Appreciate Palliative Care Input Poor prognosis Needs follow up with Pulmonology as outpatient Planned for be discharged home with Home Hospice today Chronic diastolic heart failure: Secondary to pulmonary hypertension and cor pulmonale EF: 55-60% Continue PO diuretics Patient prefers not to increase his diuretic dose at home secondary to increased urinary frequency disrupting his work Left upper extremity swelling/Numbness: Likely secondary to IV infiltrate, ? fall/trauma Left venous upper extremity ultrasound: No sonographic evidence of deep venous thrombosis. Swelling much improved Complains of some numbness but improving per patient MRI Brain: No signs of acute Ischemia MRI C-spine:no acute process Planned for EMG as outpatient Appreciate Neurology and Orthopedics Input Needs follow up with / as outpatient in 3-4 weeks Hypokalemia/Hypomagnesemia: Likely secondary to diuretics Replace and monitor monitor electrolytes GABY: resolved monitor renal function HTN: Continue diltiazem, metoprolol stable Anxiety disorder: continue Paxil Chronic pain syndrome: on narcotics Alcohol use disorder: continue Thiamine, multivitamin Tobacco use disorder: Nicotine patch Joyce's esophagus: continue PPI DVT Px: Heparin SQ Disposition: Planned to be discharged home with [facility] [employer]st following Needs to be discharged on Steroid taper, BiPAP Outpatient appointments: Primary Care Physician follow up With on 12/20/17 at 10.25 Am Neurology Follow up with on 01/18/2018 at 12:45 PM Pulmonology follow up with [facility] pulmonary Dr. Gomez on 01/01/18 at 8:30 AM. Total time spent on discharge = 40 minutes This includes examination of the patient, discharge planning, medication reconciliation, and communication with other providers. Discharge Instructions Discharge Instructions Date of Service Dec 19, 2017. Admission Reason for Admission: Copd Exacerbation, Hypercapnic Respiratory Failure Discharge Discharge Diagnosis / Problem: COPD exacerbation, Acute on chronic respiratory failure Discharge Goals Goal(s): Decrease discomfort, Improve function Activity Recommendations Activity Limitations: resume your previous activity Exercise/Sports Limitations: as tolerated . Instructions / Follow-Up Instructions / Follow-Up Follow up with your Primary Care Physician on 12/20/17 at 10.25 Am Follow up with your Neurologist on 01/18/2018 at 12:45 PM Follow up with your Customer Leader Dr. Gomez on 01/01/18 at 8:30 AM Use BiPAP and oxygen regularly as advised Complete the prednisone course as prescribed. Seek immediate medical attention if your symptoms reoccur or worsen Prednisone Taper Course: Start taking prednisone 40mg daily for 4 days then 30mg for 4 days then 20mg for 4 days then 10mg for 4 days and stop Current Hospital Diet Patient's current hospital diet: Regular Diet Discharge Diet Recommended Diet: Regular Diet Pending Studies Studies pending at discharge: no Medical Emergencies . Who to Call and When: Medical Emergencies: If at any time you feel your situation is an emergency, please call 911 immediately. . Non-Emergent Contact Non-Emergency issues call your: Primary Care Provider, Neurologist, Customer Leader Call Non-Emergent contact if: you have a fever, your pain is not controlled, your pain is worsening, your pain is unusual for you, your pain is concerning you, you have any medication questions Seek immediate medical attention if your symptoms reoccur or worsen . . "Provider Documentation" section prepared by Joe Dickey. .
--- NOTE | 2017-12-19 12:17 | Pain Management Consultation ---
Pain Management Consultation Date of Consultation Dec 19, 2017. Reason for Consultation Left arm pain/numbness Chronic pain in neck, chest, back History Mr. Cruz is a 62 y/o white male that has COPD and end-stage acute on chronic respiratory failure. He came into the Emergency Department for difficulty breathing which required sedation and intubation for 4 days. Patient complains of chronic pains in the neck, low back, anterior chest, and left forearm to the fingers. Chest pain is from frequent coughing. There is a mild aching at rest, worst with twisting and coughing. He states that he had a blood draw or IV placed into the left antecubital region. He described a sharp shooting and burning pain along the left elbow to the fingers. There was associated left hand weakness and swelling. He states that the pain has been improving, there is now an occasional aching and numbness. Patient feels like the strength is returning and the swelling has improved. Patient is on Percocet 10/325mg PO x 6 hours and Dilaudid 0.5mg x 6 hours. He felt like his pain was not controlled and so today it was changed to x 4 hours. Patient is planning on being discharged to home on hospice today. No constitutional complaints, neurological symptoms, leg weakness. Case discussed with Dr. Kinney Past Medical/Surgical History (1) Hypoxia (2) COPD exacerbation (3) Hypercapnic respiratory failure (4) Tobacco abuse (5) Pulmonary HTN (6) HTN (hypertension) (7) History of Meckel's diverticulum (8) COPD (chronic obstructive pulmonary disease) (9) Depression (10) Chronic neck pain (11) Joyce's esophagus (12) Renal cyst (13) Compression fracture (14) History of basal cell carcinoma (15) Vitamin D deficiency (16) History of suicide attempt (17) History of adenomatous polyp of colon (18) History of Joyce's esophagus (19) C. difficile colitis (20) History of appendectomy (21) 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 (22) History of colon resection (23) H/O hernia repair (24) History of esophagogastroduodenoscopy (EGD) (25) Hx of cardiac cath Family History FH: CAD (coronary artery disease) FATHER (HI, bypass) FHx: heart disease SISTER (atrial septal defect) Hypertension FATHER MOTHER Stroke FATHER TIAs FATHER Social / Work History Smoking Status: Current some day smoker Smokeless Tobacco Use: No Alcohol Use: heavy Marital Status: single Housing Status: lives alone (Pt lives alone, but has a sister down the street and a close friend who lives on the same land) Occupation: employed Allergies Coded Allergies: Shellfish (Verified Allergy, Severe, SOB & SWOLLEN GLANDS FROM SHELLFISH, 10/03/17) Onion (Verified Allergy, Unknown, RASH AND GI UPSET, 10/03/17) Captopril (Verified Adverse Reaction, Intermediate, "felt bad", 10/03/17) Codeine (Verified Adverse Reaction, Unknown, nausea; nightmares, 10/03/17) Medications Current Inpatient Medications Medications (Trade) Dose Ordered Sig/Tyree Route Start Time Stop Time Status Last Admin Dose Admin Acetaminophen (Tylenol Tab) 650 mg Q4H PRN PO 12/07/17 23:30 01/06/18 23:29 Amlodipine Besylate (Norvasc Tab) 10 mg DAILY PO 12/08/17 09:00 01/07/18 08:59 12/19/17 07:55 10 MG Diltiazem HCl (Cardizem Tab) 60 mg TID PO 12/08/17 09:00 01/07/18 08:59 12/19/17 07:53 60 MG Metoprolol Succinate (Toprol Xl Tab) 100 mg QAM PO 12/08/17 09:00 01/07/18 08:59 12/19/17 07:53 100 MG Paroxetine HCl (pAXil TAB) 20 mg DAILY PO 12/08/17 09:00 01/07/18 08:59 12/19/17 07:54 20 MG Multivitamins Therapeutic (Cerovite Liquid) 15 ml QAM PO 12/08/17 09:00 01/07/18 08:59 12/19/17 07:52 15 ML Thiamine HCl (Vitamin B-1 Tab) 100 mg QAM PO 12/08/17 09:00 01/07/18 08:59 12/19/17 07:53 100 MG Heparin Sodium (Porcine) (Heparin Sq 5000 Unit/0.5ml) 5,000 unit Q12 SQ 12/09/17 09:00 01/08/18 08:59 12/18/17 07:42 5,000 UNIT Albuterol/ Ipratropium (Duoneb) 3 ml Q4R INH 12/09/17 20:00 01/08/18 19:59 12/19/17 07:15 3 ML Aspirin (Ecotrin Tab) 325 mg QAM PO 12/10/17 09:00 01/09/18 08:59 12/19/17 07:53 325 MG Pantoprazole Sodium (Protonix Tab) 40 mg QAM PO 12/13/17 09:00 01/12/18 08:59 12/19/17 07:54 40 MG Prednisone (PredniSONE TAB) 50 mg DAILY PO 12/16/17 09:00 01/15/18 08:59 12/19/17 07:54 50 MG Furosemide (Lasix Tab) 40 mg BID17 PO 12/16/17 09:00 01/15/18 08:59 12/18/17 16:42 40 MG Nicotine (Nicoderm Cq 14MG Patch) 1 patch QAM TD 12/17/17 15:00 01/16/18 14:59 12/19/17 09:03 1 PATCH Miscellaneous (Remove Nicoderm Patch) 1 ea HS N/A 12/17/17 21:00 01/16/18 20:59 12/18/17 22:14 1 EA Zolpidem Tartrate (Ambien Tab) 5 mg HS PRN PO 12/17/17 19:00 01/16/18 18:59 12/18/17 22:13 5 MG Haloperidol Lactate (Haldol Inj) 2 mg Q2H PRN IM 12/19/17 07:00 01/18/18 06:59 Hydromorphone HCl (Dilaudid Inj) 0.5 mg Q4H PRN IV 12/19/17 08:00 12/28/17 00:29 Oxycodone/ Acetaminophen (Percocet 10-325MG Tab) 1 tab Q4H PRN PO 12/19/17 08:00 12/23/17 14:14 12/19/17 09:04 1 TAB Magnesium Sulfate 100 ml @ 100 mls/hr NOW ONCE IV 12/19/17 10:00 12/19/17 10:59 12/19/17 10:35 100 MLS/HR Magnesium Oxide (Mag-Ox Tab) 400 mg DAILY PO 12/20/17 09:00 01/19/18 08:59 Potassium Chloride (Klor-Con Tab) 20 meq DAILY PO 12/20/17 09:00 01/19/18 08:59 Review of Systems Denies complaints related to 10 point organ system review. + chronic SOB and cough Physical Exam Height & Weight: Height 5 feet, 8.00 inches. Weight 91.100 (Kilograms) 200 (Pounds) Last Vital Signs Documentation Date Time Temp Pulse Resp B/P (MAP) Pulse Ox O2 Delivery O2 Flow Rate FiO2 12/19/17 08:00 Nasal Cannula 4.0 12/19/17 07:24 89 20 130/76 (94) 95 12/19/17 04:00 36.5 30 Exam: GENERAL: Mr. Cruz is a 62 y/o white male that appears his stated age. Speech and cognition is intact. Mood and affect is appropriate. Does not appear in acute distress. HEAD: Normocephalic; atraumatic. EYES: Pupils are round, equal, and reactive to light; EOM intact. ENT: No external ear discharge or lesions. No rhinorrhea or epistaxis. No mucosal lesions. CHEST: Regular chest respiration and excursion. Anterior chest wall tenderness , diffuse. 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 No minimal tenderness of the left forearm to the hand. NEURO: CN II-XII grossly intact with no focal deficits noted. Normal gait. SKIN: No lesions, erythema, or rashes noted. Laboratory Laboratory Results (Last CBC): 12/19/17 07:19 Assessment 1. Acute on chronic respiratory failure 2. End stage COPD 3. Left forearm numbness and left hand weakness Recommendations 1. He will continue medication regimen of Percocet and Dilaudid IV as per palliative care. 2. Symptoms of the left arm are resolving and do not appear related to cervical or shoulder etiology. Symptoms are resolving with time. No interventional procedures to be offered at this time.
[2017-12-20] MEDS ORDERED: MAGNESIUM OXIDE 400 MG TAB PO SCH (09:00)
[2017-12-20] MEDS ORDERED: POTASSIUM CHLORIDE 20 MEQ TABCR PO SCH (09:00)
--- NOTE | 2017-12-21 11:26 | EDITING REQUIRED CODING QUERY ---
CODING QUERY To promote full compliance with coding requirements relating to patient care, provider participation is requested in all cases of director hospice operations uncertainty. Please assist us with the question(s) below: Please clarify the meaning of GABY. GABY is not a valid abbreviation. Thank you. ( X ) Acute Kidney Injury ( ) Acute Kidney Insufficiency ( ) Other (Specify): Principal Diagnosis: "_that condition established after study, to be chiefly responsible for occasioning the admission of the patient to the hospital for care." Co-Existing Principal Diagnosis: "_when two or more diagnoses equally meet the criteria for principal diagnosis as determined by the circumstances of admission, diagnostic work up, and/or therapy provided, and the Alphabetic Index, Tabular List, or another coding guideline does not provide sequencing direction, any one of the diagnoses may be sequenced first." "When the physician has documented what appears to be a current diagnosis in the body of the record, but has not included the diagnosis in the final diagnostic statement, the physician should be asked whether the diagnosis should be added." (Source [facility] 2 QTR90. p3-4)
== END 2017-12-19 13:42 | disposition hospice, home (50) | DRG 208 ==
LOC: EDBD 19:56 → C.EDC 20:00 → C.MSICU 23:29 → ENRESERV 23:37 → CANRESERV 12-11 16:10 → ENRESERV 12-11 16:10 → C.2T 12-11 19:17
PROVIDERS: ADMIT Internal Medicine; ATTEND Internal Medicine
PROC: 5A1945Z Respiratory Ventilation, 24-96 Consecutive Hours (ICD-10-PCS; principal; 2017-12-08)
PROC: 0BH17EZ Insertion of Endotracheal Airway into Trachea, Via Natural or Artificial Opening (ICD-10-PCS; principal; 2017-12-08)
DX: J44.1 Chronic obstructive pulmonary disease with (acute) exacerbation (principal); J96.22 Acute and chronic respiratory failure with hypercapnia; G93.41 Metabolic encephalopathy; I50.32 Chronic diastolic (congestive) heart failure; E87.1 Hypo-osmolality and hyponatremia; N17.9 Acute kidney failure, unspecified; R60.0 Localized edema; M62.81 Muscle weakness (generalized); T80.89XA Other complications following infusion, transfusion and therapeutic injection, initial encounter; R20.2 Paresthesia of skin; E87.6 Hypokalemia; E83.42 Hypomagnesemia; Z99.81 Dependence on supplemental oxygen; F12.90 Cannabis use, unspecified, uncomplicated; F17.200 Nicotine dependence, unspecified, uncomplicated; I11.0 Hypertensive heart disease with heart failure; I27.29 Other secondary pulmonary hypertension; F41.9 Anxiety disorder, unspecified; F32.9 Major depressive disorder, single episode, unspecified; G89.29 Other chronic pain; M54.2 Cervicalgia; K22.70 Barrett's esophagus without dysplasia; F10.10 Alcohol abuse, uncomplicated; Z66 Do not resuscitate; Z87.01 Personal history of pneumonia (recurrent); Z86.19 Personal history of other infectious and parasitic diseases; Z85.828 Personal history of other malignant neoplasm of skin; Z86.010 Personal history of colon polyps; Z90.49 Acquired absence of other specified parts of digestive tract; Z98.890 Other specified postprocedural states; Z79.51 Long term (current) use of inhaled steroids; Z79.82 Long term (current) use of aspirin; Z79.899 Other long term (current) drug therapy; Z88.5 Allergy status to narcotic agent; Z88.8 Allergy status to other drugs, medicaments and biological substances; Z91.013 Allergy to seafood; Z91.018 Allergy to other foods; Z82.49 Family history of ischemic heart disease and other diseases of the circulatory system; Z82.3 Family history of stroke